=== PATIENT | male | born 1960 | race Caucasian/White ===

== ENCOUNTER 2018-11-05 17:55 | Emergency (ER) | payer SELFPAY ==
[~2018-11-05] VITALS: Ht 175.3 cm; Wt 117.9 kg
[~2018-11-05 17:55] MED LIST: AMLO5TAB2 PO; EPIN0.3P2 IM; GLYB5TAB3 PO; GLYB5TAB6 PO; LISI40TA PO; LISI5TAB PO; MTF500T PO; NFMET1000 PO
--- OUTSIDE RECORDS SUMMARY | 2018-11-05 18:01 | XMS REPORT ---
Author STUART Lizarraga Organization e[employer]Works Address Unknown Phone Unavailable Care Team Providers Care Academic Counselor Name Role Phone STUART ACEVEDO CP Unavailable Allergies No Known Allergies Problems Problem Type Condition Code Onset Dates Condition Status Problem PPV23 (PNEUMOVAX) DX V03.82 Active Problem Encounter for long-term (current) use of other medications V58.69 Active Problem Personal history of noncompliance with medical treatment, presenting hazards to health V15.81 Active Problem STATE HEP A (ADULT) DX V05.3 Active Problem Type 2 diabetes mellitus with hyperglycemia E11.65 Active Problem Essential hypertension with goal blood pressure less than 130\/80 I10 Active Problem Anxiety F41.9 Active Problem Irritable bowel syndrome with diarrhea K58.0 Active Problem Hypertension, essential I10 Active Problem Chronic tension-type headache, not intractable G44.229 Active Problem 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
--- OUTSIDE RECORDS SUMMARY | 2018-11-05 18:01 | XMS REPORT ---
Author Author [facility] Organization e[employer] Address Unknown Phone Unavailable Care Team Providers Care Doctor Of Nursing Practice Name Role Phone [facility], [facility] CP Unavailable Allergies No Known Allergies Problems Problem Type Condition ICD-9 Code Onset Dates Condition Status Problem Thoracic sprain and strain 847.1 Active Problem Tension type headache, unspecified 339.10 Active Problem Pain in joint, lower leg 719.46 Active Problem Encounter for long-term (current) use of other medications V58.69 Active Problem PPV23 (PNEUMOVAX) DX V03.82 Active Problem Other and unspecified derangement of medial meniscus 717.3 Active Problem STATE HEP A (ADULT) DX V05.3 Active Assessment Affective disorder 296.90 Active Problem Hypertension, essential 401.9 Active Problem Unspecified episodic mood disorder 296.90 Active Problem Primary localized osteoarthrosis, lower leg 715.16 Active Problem Personal history of noncompliance with medical treatment, presenting hazards to health V15.81 Active Problem Unspecified essential hypertension 401.9 Active Problem Diabetes mellitus without mention of complication, type II or unspecified type, uncontrolled 250.02 Active Problem Obesity, unspecified 278.00 Active Problem Pain in thoracic spine 724.1 Active Problem Unspecified pre-operative examination V72.84 Active Problem Need for prophylactic vaccination and inoculation, Influenza V04.81 Active Problem Other chronic pain 338.29 Active Problem Suicidal ideation V62.84 Active Problem Tension headache 307.81 Active Problem Nondependent amphetamine or related acting sympathomimetic abuse, 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
--- OUTSIDE RECORDS SUMMARY | 2018-11-05 18:01 | XMS REPORT ---
Author Author ANJELICA[facility] eClinicalWorks Address Unknown Phone Unavailable Care Team Providers Care Explosive Expert Name Role Phone [facility], [facility] CP Unavailable Allergies No Known Allergies Problems Problem Type Condition Code Onset Dates Condition Status Problem Tension headache 307.81 Active Problem Tension type headache, unspecified 339.10 Active Problem Thoracic sprain and strain 847.1 Active Problem Hypertension, essential I10 Active Problem Hypertension, essential 401.9 Active Problem Diabetes type 2, uncontrolled E11.65 Active Problem Personal history of noncompliance with medical treatment, presenting hazards to health V15.81 Active Problem Primary localized osteoarthrosis, lower leg 715.16 Active Problem Encounter for long-term (current) use of other medications V58.69 Active Problem Other and unspecified derangement of medial meniscus 717.3 Active Assessment Unspecified mood [affective] disorder F39 Active Problem Obesity, unspecified 278.00 Active Problem Suicidal ideation V62.84 Active Problem STATE HEP A (ADULT) DX V05.3 Active Problem Nondependent amphetamine or related acting sympathomimetic abuse, 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
--- OUTSIDE RECORDS SUMMARY | 2018-11-05 18:01 | XMS REPORT ---
Author Author [facility] Organization e[employer] Address Unknown Phone Unavailable Care Team Providers Care Peace Officer Name Role Phone [facility], [facility] CP Unavailable Allergies No Known Allergies [...] System Code Date HEALTH PROMOTION CPT-4 S0280 May 02, 2015 Results No Known Results Summary Purpose eClinicalWorks Submission
--- OUTSIDE RECORDS SUMMARY | 2018-11-05 18:01 | XMS REPORT ---
Author Author [facility] Organization e[employer] Address Unknown Phone Unavailable Care Team Providers Care Genetic Supervisor Name Role Phone [facility] [place] CP Unavailable Allergies No Known Allergies Problems [...] Code Date HEALTH PROMOTION CPT-4 S0280 May 03, 2015 Results No Known Results Summary Purpose eClinicalWorks Submission
--- OUTSIDE RECORDS SUMMARY | 2018-11-05 18:01 | XMS REPORT ---
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
--- OUTSIDE RECORDS SUMMARY | 2018-11-05 18:01 | XMS REPORT ---
Author Author [facility] Organization e[employer] Address Unknown Phone Unavailable Care Team Providers Care Dowel Pin Worker Name Role Phone [facility], [facility] CP Unavailable Allergies No Known Allergies Problems [...] Code Date HEALTH PROMOTION CPT-4 S0280 Apr 22, 2015 Results No Known Results Summary Purpose eClinicalWorks Submission
--- OUTSIDE RECORDS SUMMARY | 2018-11-05 18:01 | XMS REPORT ---
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 Active Problem Obesity, unspecified 278.00 Active Problem Suicidal ideation V62.84 Active Problem STATE HEP A (ADULT) DX V05.3 Active Problem Nondependent amphetamine or related acting sympathomimetic abuse, 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 Active Problem PPV23 (PNEUMOVAX) DX V03.82 Active Problem Need for prophylactic vaccination and inoculation, Influenza V04.81 Active Medications Medication Code System Code Instructions Start Date End Date Status Dosage Amaryl [facility] [address]-98 4 MG Orally Once a day Jun 21, 2014 1 tablet with breakfast or the first main meal of the day benazepril [facility] 0 20 mg Sep 20, 2014 1 time per day Remeron [facility] [address]-07 30 mg Sep 20, 2014 take 1 tablet (30 mg ) by oral route once daily before bedtime ProAir HFA [facility] [address]-77 90 mcg/actuation Sep 20, 2014 inhale 2 puffs by Inhalation route every 4 hours as needed PRN shortness of breath/ cough Januvia [facility] [address]-69 100 MG Orally Once a day Jun 21, 2014 1 tablet Diflucan [facility] [address]-00 not defined Zantac [facility] [address]-28 150 mg Jun 21, 2014 take 1 tablet (150 mg ) by oral route 2 times per day Albuterol Sulfate [facility] [address]-22 90 mcg/actuation February 13, 2014 2 puffs by Inhalation route every 4 hours as needed for 7 days Toprol XL [facility] [address]-54 50 mg Sep 19, 2014 take 1 tablet by Oral route 1 time per day at bedtime cyclobenzaprine [facility] 0 5 mg October 24, 2014 1 tablet 2 times per day PRN Symbicort [facility] [address]-25 160-4.5 mcg/actuation Sep 20, 2014 inhale 2 puffs by Inhalation route in the morning and evening 2 times per day rinse mouth after use MetFORMIN HCl ER (MOD) [facility] [address]-69 1000 MG Orally 2 times a day January 15, 2015 1 tablet Procedures Procedure Coding System Code Date MICROALBUMIN, SEMIQUANT CPT-4 41663 May 29, 2015 Office Visit, Est Pt., Level 4 CPT-4 43421 May 29, 2015 GLYCATED HEMOGLOBIN TEST CPT-4 21879 May 29, 2015 Vital Signs Date/Time: May 29, 2015 Temperature 97.5 F Weight 236.4 lbs Height 68 1/2 in BMI 35.42 Index Blood Pressure Diastolic 92 mmHg Blood Pressure Systolic 162 mmHg Cardiac Monitoring Heart Rate 82 bpm Results Name Result Date Reference Range Unit Abnormality Flag A1C (IN HOUSE) Summary Purpose eClinicalWorks Submission
--- OUTSIDE RECORDS SUMMARY | 2018-11-05 18:01 | XMS REPORT ---
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
--- OUTSIDE RECORDS SUMMARY | 2018-11-05 18:01 | XMS REPORT ---
Author STUART Lizarraga [facility] eClinicalWorks Address Unknown Phone Unavailable Care Team Providers Care Doll Wig Maker Name Role Phone STUART ACEVEDO CP Unavailable Allergies, Adverse Reactions, Alerts Substance Reaction Event Type Aspirin Info Not Available Drug Allergy Problems Problem Type Condition Code Onset Dates Condition Status Problem STATE HEP A (ADULT) DX V05.3 Active Problem Personal history of noncompliance with medical treatment, presenting hazards to health V15.81 Active Problem PPV23 (PNEUMOVAX) DX V03.82 Active Problem Essential hypertension with goal blood pressure less than 130\/80 I10 Active Problem Chronic tension-type headache, not intractable G44.229 Active Problem Type 2 diabetes mellitus with hyperglycemia E11.65 Active Problem Hypertension, essential I10 Active Problem Encounter for long-term (current) use of other medications V58.69 Active Problem 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 Active Problem Irritable bowel syndrome with diarrhea K58.0 Active Assessment Chronic tension-type headache, not intractable G44.229 Active Assessment Essential hypertension with goal blood pressure less than 130\/80 I10 Active Assessment Type 2 diabetes mellitus with hyperglycemia E11.65 Active Medications Medication Code System Code Instructions Start Date End Date Status Dosage Amaryl [facility] 39758052720 4MG Orally Once a day 1 tablet with breakfast or the first main meal of the day MetFORMIN HCl ER [facility] [address]-25 500 MG Orally 2 times a day Sep 27, 2015 2 tablets Cyclobenzaprine HCl [facility] [address]-66 5 MG Orally Once a day October 29, 2015 1 tablet Benazepril HCl [facility] 98999661168 20MG Orally Once a day 1 tablet Diclofenac Potassium [facility] 20208938163 50MG Orally Twice a day prn 1 tablet as needed for pain Januvia [facility] 72226557847 100MG Orally Once a day 1 tablet Zantac [facility] [address]-73 150 mg Jun 21, 2014 take 1 tablet (150 mg ) by oral route 2 times per day Ranitidine HCl [facility] 03903339761 150MG TAKE ONE TABLET BY MOUTH TWICE DAILY Metoprolol Succinate ER [facility] 58478055308 50MG Orally Once a day 1 tablet ProAir HFA [facility] [address]-00 90 mcg/actuation Inhalation every 4 hrs as needed for shortness of breath/cough Sep 20, 2014 inhale 2 puffs by Bentyl [facility] [address]-62 10 MG Orally 3 times a day Aug 14, 2015 1 capsule before meals Probiotic [facility] 15667-[address]951 1 Orally PRN Aug 14, 2015 1 capsul Procedures Procedure Coding System Code Date Office Visit, Est Pt., Level 4 CPT-4 38783 December 17, 2015 GLYCATED HEMOGLOBIN TEST CPT-4 33001 December 17, 2015 Vital Signs Date/Time: December 17, 2015 Temperature 98.4 F Weight 258.5 lbs Height 68 1/2 in BMI 38.73 Index Blood Pressure Diastolic 90 mmHg Blood Pressure Systolic 156 mmHg Cardiac Monitoring Heart Rate 69 bpm Results Name Result Date Reference Range Unit Abnormality Flag A1C (IN HOUSE) ----A1C IN HOUSE 9.7 [id number] 4.3 - 5.6 % ----Previous A1c 7.3 [id number] ----Lot [id number] ----Exp date [id number] Summary Purpose eClinicalWorks Submission
--- OUTSIDE RECORDS SUMMARY | 2018-11-05 18:01 | XMS REPORT ---
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
--- OUTSIDE RECORDS SUMMARY | 2018-11-05 18:01 | XMS REPORT ---
Author STUART Lizarraga Organization eClinicalWorks Address Unknown Phone Unavailable Care Team Providers Care Conveyor Belt Operator Name Role Phone STUART ACEVEDO CP Unavailable [...] End Date Status Dosage MetFORMIN HCl [facility] [address]-15 500 MG Orally 2 times a day Sep 27, 2015 2 tablets Results No Known Results Summary Purpose eClinicalWorks Submission
--- OUTSIDE RECORDS SUMMARY | 2018-11-05 18:02 | XMS REPORT ---
Author STUART Lizarraga Organization eClinicalWorks Address Unknown Phone Unavailable Care Team Providers Care Lock Setter Name Role Phone STUART ACEVEDO CP Unavailable Allergies No Known Allergies Problems Problem Type Condition Code Onset Dates Condition Status Problem STATE HEP A (ADULT) DX V05.3 Active Assessment Hypertension, essential I10 Active Problem Irritable bowel syndrome with diarrhea [...] Medications Procedures Procedure Coding System Code Date ASSAY OF FREE THYROXINE CPT-4 02778 Sep 23, 2015 COMPLETE CBC W/AUTO DIFF WBC CPT-4 92451 Sep 23, 2015 ASSAY THYROID STIM HORMONE CPT-4 10915 Sep 23, 2015 COMPREHEN METABOLIC PANEL CPT-4 09641 Sep 23, 2015 LIPID PANEL CPT-4 27220 Sep 23, 2015 VENIPUNCT, ROUTINE* CPT-4 32312 Sep 23, 2015 Results Name Result Date Reference Range Unit Abnormality Flag ROUTINE VENIPUNCTURE Summary Purpose eClinicalWorks Submission
--- OUTSIDE RECORDS SUMMARY | 2018-11-05 18:02 | XMS REPORT ---
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 Active Problem STATE HEP A (ADULT) DX V05.3 Active Assessment Hypertension, essential I10 Active Assessment Irritable bowel syndrome with diarrhea K58.0 Active Problem Irritable bowel syndrome with diarrhea [...] Date Status Dosage MetFORMIN HCl ER (MOD) [facility] 05848512742 1000MG Orally 2 times a day 1 tablet Januvia [facility] 40637978578 100MG Orally Once a day 1 tablet Metoprolol Succinate ER [facility] 25689126174 50MG TAKE ONE TABLET BY MOUTH ONCE DAILY AT BEDTIME Amaryl [facility] 62450169179 4MG Orally Once a day 1 tablet with breakfast or the first main meal of the day Ranitidine HCl [facility] 80284287520 150MG TAKE ONE TABLET BY MOUTH TWICE DAILY Zantac [facility] [address]-90 150 mg Jun 21, 2014 take 1 tablet (150 mg ) by oral route 2 times per day Bentyl [facility] [address]-59 10 MG Orally 3 times a day Aug 14, 2015 1 capsule before meals Diclofenac Potassium [facility] 59216549441 50MG Orally Twice a day prn 1 tablet Probiotic [facility] 29154-88478 1 Orally PRN Aug 14, 2015 1 capsul Benazepril HCl [facility] [address]-12 20 MG Orally Once a day May 29, 2015 1 tablet Symbicort [facility] [address]-43 160-4.5 mcg/actuation Sep 20, 2014 inhale 2 puffs by Inhalation route in the morning and evening 2 times per day rinse mouth after use ProAir HFA [facility] [address]-91 90 mcg/actuation Sep 20, 2014 inhale 2 puffs by Inhalation route every 4 hours as needed PRN shortness of breath/ cough Procedures Procedure Coding System Code Date Office Visit, Est Pt., Level 3 CPT-4 68477 Aug 14, 2015 Vital Signs Date/Time: Aug 14, 2015 Temperature 98.1 F Weight 245.8 lbs Height 68 1/2 in BMI 36.83 Index Blood Pressure Diastolic 88 mmHg Blood Pressure Systolic 138 mmHg Cardiac Monitoring Heart Rate 68 bpm Results No Known Results Summary Purpose eClinicalWorks Submission
--- OUTSIDE RECORDS SUMMARY | 2018-11-05 18:02 | XMS REPORT ---
Author Author ANJELICA[facility] Organization eClinicalWorks Address Unknown Phone Unavailable Care Team Providers Care Lead Blender Name Role Phone [facility], [facility] CP Unavailable Allergies No Known Allergies [...] System Code Date HEALTH PROMOTION CPT-4 S0280 Sep 16, 2015 Results No Known Results Summary Purpose eClinicalWorks Submission
--- NOTE | 2018-11-05 19:40 | ED General ---
General Chief Complaint: Glucose Problems Stated Complaint: BLOOD SUGAR HIGH Source of Information: Patient Exam Limitations: No Limitations History of Present Illness Date Seen by Provider: Nov 05, 2018 Time Seen by Provider: 19:20 Initial Comments 58-year-old male who presents to the emergency room with complaints of elevated blood sugar. He reports that he has type 2 diabetes and is on insulin but has not been on insulin since he was released from care home 2 months ago. Prior to him being sent to care home he did see [facility] for primary care. He reports that he was at the walk-in clinic for a sinus infection last week but did not report that he needed his insulin. He is just finishing up his antibiotic for his sinus infection. Allergies and Home Medications Allergies Coded Allergies: Hydrocodone (Unverified Allergy, Unknown, hives, 04/08/11) Aspirin (Unverified Adverse Reaction, Unknown, angioedema, 04/08/11) lisinopril (Unverified Adverse Reaction, Unknown, angioedema, 04/08/11) Home Medications Amlodipine Besylate 5 Mg Tablet, 5 MG PO DAILY, (Reported) Epinephrine 0.3 Mg/0.3/Syringe Pen.injctr, 0.3 MG IM PRN, (Reported) prn anaphylaxis Glyburide 5 Mg Tablet, 4 MG PO BIDAC, (Reported) Metformin Hcl 500 Mg Tablet, 2 EACH PO BID, (Reported) Patient Home Medication List Home Medication List Reviewed: Yes Review of Systems Review of Systems Constitutional: see HPI; No chills, No fever Hematologic/Lymphatic: See HPI, Other (high blood sugar) All Other Systems Reviewed Negative Unless Noted: Yes Past Ydwrzas-Slnolc-Azwbzd Hx Past Med/Social Hx: Reviewed Nursing Past Med/Soc Hx Patient Social History Alcohol Use: Denies Use Recreational Drug Use: No Smoking Status: Never a Smoker Recent Foreign Travel: No Contact w/Someone Who Travel: No Recent Hopitalizations: Yes ([facility] FOR PSYCH) Physical Abuse: No Sexual Abuse: No Mistreated: No Fear: No Past Medical History Surgeries: Yes (BONE GRAFT TO RT WRIST FROM HIP) Respiratory: No Cardiac: No Neurological: No Reproductive Disorders: No Genitourinary: No Gastrointestinal: No Musculoskeletal: No Endocrine: Yes Diabetes, Insulin dep Are Your Blood Sugars Over 250: Yes HEENT: No Cancer: No Psychosocial: No Integumentary: No Blood Disorders: No Family Medical History Reviewed Nursing Family Hx Physical Exam Vital Signs Vital Signs - First Documented 11/05/18 19:18 Temp 98.5 Pulse 68 Resp 20 B/P (MAP) 169/94 (119) Pulse Ox 97 O2 Delivery Room Air Capillary Refill : Height, Weight, BMI Height: '" Weight: lbs. oz. kg; BMI Method: General Appearance: No Apparent Distress, WD/WN HEENT: PERRL/EOMI, TMs Normal, Normal ENT Inspection, Pharynx Normal Respiratory: Chest Non Tender, Lungs Clear, Normal Breath Sounds, No Accessory Muscle Use, No Respiratory Distress Cardiovascular: Regular Rate, Rhythm, No Edema, No Gallop, No JVD, No Murmur, Normal Peripheral Pulses Gastrointestinal: Normal Bowel Sounds, No Organomegaly, No Pulsatile Mass, Non Tender, Soft Neurologic/Psychiatric: Alert, Oriented x3, Normal Mood/Affect Skin: Normal Color, Warm/Dry Progress/Results/Core Measures Suspected Sepsis SIRS Temperature: Pulse: Respiratory Rate: Laboratory Tests 11/05/18 19:52: White Blood Count 9.5 Blood Pressure / Mean: Laboratory Tests 11/05/18 19:52: Creatinine 1.33H, Platelet Count 244, Total Bilirubin 0.3 Results/Orders Lab Results My Orders Medications Given in ED Vital Signs/I&O Capillary Refill : Progress Note : Time: 21:29 Progress Note I have seen and evaluated the patient. I have reviewed his laboratory findings. He is not spilling ketones in his urine at this time. He agrees with plan of care, plans for discharge, strict follow-up and return precautions were given. Departure Impression Primary Impression: Diabetes mellitus Qualified Codes: E11.9 - Type 2 diabetes mellitus without complications Disposition: 01 HOME, SELF-CARE Condition: Stable/Unchanged Departure-Patient Inst. Decision time for Depature: 21:29 Referrals: TRAM TAFOYA DO Patient Instructions: Diabetes Type 2 (DC) Add. Discharge Instructions: Call first thing tomorrow morning to get an appointment scheduled at [facility]. You should be able to get your insulin refilled at the walk-in clinic tomorrow from 12-5. Keep a close eye on your blood sugars while at home and eat a well balanced diet that is diabetic cautious. Return back to the emergency room for worsening symptoms or concerns as needed. All discharge instructions reviewed with patient and/or family. Voiced understanding. RHONDA TAY Nov 05, 2018 19:40
[2018-11-05] MEDS ORDERED: NS IV 1000 ML 1,000 ML IV SCH ×2 (19:45→20:45)
[2018-11-05 19:59] LABS: BASOPHILS # (AUTO) 0.1 10^3/uL (0.0-0.1); BASOPHILS % (AUTO) 1 % (0-10); EOSINOPHILS # (AUTO) 0.5 10^3/uL (0.0-0.3); EOSINOPHILS % (AUTO) 5 % (0-10); HEMATOCRIT 39 % (40-54); HEMOGLOBIN 13.4 G/DL (13.3-17.7); LYMPHOCYTES # (AUTO) 1.9 X 10^3 (1.0-4.0); LYMPHOCYTES % (AUTO) 20 % (12-44); MEAN CORPUSCULAR HEMOGLOBIN 28 PG (25-34); MEAN CORPUSCULAR HGB CONC 34 G/DL (32-36); MEAN CORPUSCULAR VOLUME 82 FL (80-99); MEAN PLATELET VOLUME 10.1 FL (7.4-10.4); MONOCYTES # (AUTO) 0.6 X 10^3 (0.0-1.0); MONOCYTES % (AUTO) 6 % (0-12); NEUTROPHILS # (AUTO) 6.4 X 10^3 (1.8-7.8); NEUTROPHILS % (AUTO) 68 % (42-75); PLATELET COUNT 244 10^3/uL (130-400); RED CELL DISTRIBUTION WIDTH 13.8 % (10.0-14.5); WHITE BLOOD COUNT 9.5 10^3/uL (4.3-11.0)
[2018-11-05 20:01] LABS: BILIRUBIN,URINE NEGATIVE (NEGATIVE); CLARITY,URINE CLEAR; COLOR,URINE YELLOW; GLUCOSE, URINE (UA) 4+ (NEGATIVE); KETONES,URINE NEGATIVE (NEGATIVE); LEUKOCYTE ESTERASE ,URINE NEGATIVE (NEGATIVE); NITRITE,URINE NEGATIVE (NEGATIVE); PH,URINE 5 (5-9); PROTEIN,URINE 1+ (NEGATIVE); UROBILINOGEN,URINE NORMAL (NORMAL)
[2018-11-05 20:12] LABS: BACTERIA,URINE NEGATIVE /HPF
[2018-11-05 20:21] LABS: ALBUMIN 3.9 GM/DL (3.2-4.5); BILIRUBIN,TOTAL 0.3 MG/DL (0.1-1.0); CALCIUM 9.5 MG/DL (8.5-10.1); CREATININE SERUM 1.33 MG/DL (0.60-1.30); TOTAL PROTEIN 7.1 GM/DL (6.4-8.2)
[2018-11-05] MEDS ORDERED: inSUlin (REGULAR) HUMAN 1 UNIT/0.01 ML (CHARGE PER UNIT) SC ONE (20:30)
--- NOTE | 2018-11-05 21:19 | NUR ---
FSBS 272MG/DL. RHONDA AWARE
[2018-11-05 21:47] VITALS: BP 140/76
== END 2018-11-05 21:47 | disposition home or self-care (01) ==
LOC: EDUNIT# 17:55 → ER 17:56
DX: E11.65 Type 2 diabetes mellitus with hyperglycemia (principal); Z88.5 Allergy status to narcotic agent; Z88.6 Allergy status to analgesic agent; Z88.8 Allergy status to other drugs, medicaments and biological substances; Z79.4 Long term (current) use of insulin; Z94.6 Bone transplant status
CPT/HCPCS: 36415; 80053; 81000; 82150; 82962; 83690; 83735; 84075; 85025

== ENCOUNTER 2018-11-21 20:43 | Emergency (ER) | payer SELFPAY ==
--- OUTSIDE RECORDS SUMMARY | 2018-11-21 20:58 | XMS REPORT | Continuity of Care Document ---
Author Author [facility] Address Unknown Phone Unavailable Allergies Active Description Code Type Severity Reaction Onset Reported/Identified Relationship to Patient Clinical Status Yes hydrocodone Drug Allergy N/A N/A 06/17/2011 Yes lisinopril Drug Allergy N/A N/A 06/17/2011 Yes hydrocodone Drug Allergy 06/17/2011 Yes lisinopril Drug Allergy 06/17/2011 Yes aspirin Drug Allergy N/A N/A 05/23/2014 Medications There is no data. Problems Date Dx Coded Attending Type Code Diagnosis Diagnosed By 04/20/2008 278.02 Overweight 04/20/2008 401.1 ESSENTIAL HYPERTENSION BENIGN 04/20/2008 682.9 Cellulitis And Abscess Of Unspecified Sites 04/20/2008 278.02 Overweight 04/20/2008 401.1 ESSENTIAL HYPERTENSION BENIGN 04/20/2008 682.9 Cellulitis And Abscess Of Unspecified Sites 04/20/2008 278.02 Overweight 04/20/2008 401.1 ESSENTIAL HYPERTENSION BENIGN 04/20/2008 682.9 Cellulitis And Abscess Of Unspecified Sites 04/20/2008 278.02 Overweight 04/20/2008 401.1 ESSENTIAL HYPERTENSION BENIGN 04/20/2008 682.9 Cellulitis And Abscess Of Unspecified Sites 04/20/2008 RYNE ACEVEDO APRNSON L 278.02 Overweight 04/20/2008 RYNE ACEVEDO APRNSON L 401.1 ESSENTIAL HYPERTENSION BENIGN 04/20/2008 CURTIS ARMSTRONG STUART L 682.9 Cellulitis And Abscess Of Unspecified Sites 04/20/2008 RYNE ACEVEDO APRNSON L 278.02 Overweight 04/20/2008 RYNE ACEVEDO APRNSON L 401.1 ESSENTIAL HYPERTENSION BENIGN 04/20/2008 CURTIS ARMSTRONG STUART L 682.9 Cellulitis And Abscess Of Unspecified Sites 04/20/2008 RYNE ACEVEDO APRNSON L 278.02 Overweight 04/20/2008 CURTIS ARMSTRONG STUART L 401.1 ESSENTIAL HYPERTENSION BENIGN 04/20/2008 CURTIS ARMSTRONG STUART L 682.9 Cellulitis And Abscess Of Unspecified Sites 04/20/2008 TAFOYA DO, TRAM K 278.02 Overweight 04/20/2008 TAFOYA DO, TRAM K 401.1 ESSENTIAL HYPERTENSION BENIGN 04/20/2008 TAFOYA DO, TRAM K 682.9 Cellulitis And Abscess Of Unspecified Sites 04/20/2008 TAFOYA DO, TRAM K 278.02 Overweight 04/20/2008 TAFOYA DO, TRAM K 401.1 ESSENTIAL HYPERTENSION BENIGN 04/20/2008 TAFOYA DO, TRAM K 682.9 Cellulitis And Abscess Of Unspecified Sites 04/20/2008 TAFOYA DO, TRAM K 278.02 Overweight 04/20/2008 TAFOYA DO, TRAM K 401.1 ESSENTIAL HYPERTENSION BENIGN 04/20/2008 TAFOYA DO, TRAM K 682.9 Cellulitis And Abscess Of Unspecified Sites 04/20/2008 EATKATHRYN ARMSTRONG STUART L 278.02 Overweight 04/20/2008 RYNE ACEVEDO APRNSON L 401.1 ESSENTIAL HYPERTENSION BENIGN 04/20/2008 CURTIS ARMSTRONG STUART L 682.9 Cellulitis And Abscess Of Unspecified Sites 04/20/2008 TONY VELASQUEZ, RASHID E 278.02 Overweight 04/20/2008 TONY VELASQUEZ, RASHID E 401.1 ESSENTIAL HYPERTENSION BENIGN 04/20/2008 TONY VELASQUEZ, RASHID E 682.9 Cellulitis And Abscess Of Unspecified Sites 04/20/2008 TONY VELASQUEZ, RASHID E 278.02 Overweight 04/20/2008 TONY RN, RASHID E 401.1 ESSENTIAL HYPERTENSION BENIGN 04/20/2008 TONY RN, RASHID E 682.9 Cellulitis And Abscess Of Unspecified Sites 04/20/2008 TONY RN, RASHID E 278.02 Overweight 04/20/2008 TONY RN, RASHID E 401.1 ESSENTIAL HYPERTENSION BENIGN 04/20/2008 TONY VELASQUEZ, RASHID E 682.9 Cellulitis And Abscess Of Unspecified Sites 04/20/2008 EATKATHRYN AGILE TESTER, STUART L 278.02 Overweight 04/20/2008 EATON AGILE TESTER, STUART L 401.1 ESSENTIAL HYPERTENSION BENIGN 04/20/2008 EATON AGILE TESTER, STUART L 682.9 Cellulitis And Abscess Of Unspecified Sites 04/20/2008 TAFOYA DO TRAM K 278.02 Overweight 04/20/2008 TAFOYA DO, TRAM K 401.1 ESSENTIAL HYPERTENSION BENIGN 04/20/2008 LOTTIE PATEL TRAM K 682.9 Cellulitis And Abscess Of Unspecified Sites 04/20/2008 LOTTIE PATEL TRAM K 278.02 Overweight 04/20/2008 TAFOYA DO TRAM K 401.1 ESSENTIAL HYPERTENSION BENIGN 04/20/2008 TAFOYA DO TRAM K 682.9 Cellulitis And Abscess Of Unspecified Sites 04/20/2008 TONY VELASQUEZ, RASHID E 278.02 Overweight 04/20/2008 TONY VELASQUEZ, RASHID E 401.1 ESSENTIAL HYPERTENSION BENIGN 04/20/2008 TONY VELASQUEZ, RASHID E 682.9 Cellulitis And Abscess Of Unspecified Sites 04/20/2008 LOTTIE PATEL TRAM K 278.02 Overweight 04/20/2008 LOTTIE PATEL TRAM K 401.1 ESSENTIAL HYPERTENSION BENIGN 04/20/2008 JASSI TAFOYA DOA K 682.9 Cellulitis And Abscess Of Unspecified Sites 04/20/2008 TONY VELASQUEZ, RASHID E 278.02 Overweight 04/20/2008 TONY VELASQUEZ, RASHID E 401.1 ESSENTIAL HYPERTENSION BENIGN 04/20/2008 TONY VELASQUEZ, RASHID E 682.9 Cellulitis And Abscess Of Unspecified Sites 04/20/2008 JASSI TAFOYA DOA K 278.02 Overweight 04/20/2008 LOTTIE PATEL TRAM K 401.1 ESSENTIAL HYPERTENSION BENIGN 04/20/2008 JASSI TAFOYA DOA K 682.9 Cellulitis And Abscess Of Unspecified Sites 04/20/2008 TONY VELASQUEZ, RASHID E 278.02 Overweight 04/20/2008 TONY VELASQUEZ, RASHID E 401.1 ESSENTIAL HYPERTENSION BENIGN 04/20/2008 TONY VELASQUEZ, RASHID E 682.9 Cellulitis And Abscess Of Unspecified Sites 05/18/2008 697.0 Lichen Planus 05/18/2008 697.0 Lichen Planus 05/18/2008 697.0 Lichen Planus 05/18/2008 697.0 Lichen Planus 05/18/2008 STUART ACEVEDO APRN 697.0 Lichen Planus 05/18/2008 STUART ACEVEDO APRN 697.0 Lichen Planus 05/18/2008 STUART ACEVEDO APRN L 697.0 Lichen Planus 05/18/2008 JASSI TAFOYA DOA K 697.0 Lichen Planus 05/18/2008 TAFOYA DO, TRAM K 697.0 Lichen Planus 05/18/2008 TAFOYA DO, TRAM K 697.0 Lichen Planus 05/18/2008 STUART ACEVEDO APRN L 697.0 Lichen Planus 05/18/2008 TONY VELASQUEZ, RASHID E 697.0 Lichen Planus 05/18/2008 TONY VELASQUEZ, RASHID E 697.0 Lichen Planus 05/18/2008 TONY VELASQUEZ, RASHID E 697.0 Lichen Planus 05/18/2008 STUART ACEVEDO APRN L 697.0 Lichen Planus 05/18/2008 TAFOYA DO, TRAM K 697.0 Lichen Planus 05/18/2008 TAFOYA DO, TRAM K 697.0 Lichen Planus 05/18/2008 TONY VELASQUEZ, RASHID E 697.0 Lichen Planus 05/18/2008 TAFOYA DO, TRAM K 697.0 Lichen Planus 05/18/2008 TONY VELASQUEZ, RASHID E 697.0 Lichen Planus 05/18/2008 TAFOYA DO, TRAM K 697.0 Lichen Planus 05/18/2008 TONY VELASQUEZ, RASHID E 697.0 Lichen Planus 06/17/2011 250.00 DIABETES MELLITUS POORLY CONTROLLED 06/17/2011 278.01 OBESITY MORBID 06/17/2011 496 CHRONIC OBSTRUCTIVE PULMONARY DISEASE 06/17/2011 724.2 lower back pain 06/17/2011 250.00 DIABETES MELLITUS POORLY CONTROLLED 06/17/2011 278.01 OBESITY MORBID 06/17/2011 496 CHRONIC OBSTRUCTIVE PULMONARY DISEASE 06/17/2011 724.2 lower back pain 06/17/2011 250.00 DIABETES MELLITUS POORLY CONTROLLED 06/17/2011 278.01 OBESITY MORBID 06/17/2011 496 CHRONIC OBSTRUCTIVE PULMONARY DISEASE 06/17/2011 724.2 lower back pain 06/17/2011 250.00 DIABETES MELLITUS POORLY CONTROLLED 06/17/2011 278.01 OBESITY MORBID 06/17/2011 496 CHRONIC OBSTRUCTIVE PULMONARY DISEASE 06/17/2011 724.2 lower back pain 06/17/2011 STUART ACEVEDO APRN 250.00 DIABETES MELLITUS POORLY CONTROLLED 06/17/2011 STUART ACEVEDO APRN 278.01 OBESITY MORBID 06/17/2011 STUART ACEVEDO APRN 496 CHRONIC OBSTRUCTIVE PULMONARY DISEASE 06/17/2011 STUART ACEVEDO APRN 724.2 lower back pain 06/17/2011 EATON AGILE TESTER, STUART L 250.00 DIABETES MELLITUS POORLY CONTROLLED 06/17/2011 EATON AGILE TESTER, STUART L 278.01 OBESITY MORBID 06/17/2011 EATON AGILE TESTER, STUART L 496 CHRONIC OBSTRUCTIVE PULMONARY DISEASE 06/17/2011 EATON AGILE TESTER, STUART L 724.2 lower back pain 06/17/2011 EATON AGILE TESTER, STUART L 250.00 DIABETES MELLITUS POORLY CONTROLLED 06/17/2011 EATON AGILE TESTER, STUART L 278.01 OBESITY MORBID 06/17/2011 EATON AGILE TESTER, STUART L 496 CHRONIC OBSTRUCTIVE PULMONARY DISEASE 06/17/2011 EATON AGILE TESTER, STUART L 724.2 lower back pain 06/17/2011 TAFOYA DO, TRAM K 250.00 DIABETES MELLITUS POORLY CONTROLLED 06/17/2011 TAFOYA DO, TRAM K 278.01 OBESITY MORBID 06/17/2011 TAFOYA DO, TRAM K 496 CHRONIC OBSTRUCTIVE PULMONARY DISEASE 06/17/2011 TAFOYA DO, TRAM K 724.2 lower back pain 06/17/2011 TAFOYA DO, TRAM K 250.00 DIABETES MELLITUS POORLY CONTROLLED 06/17/2011 TAFOYA DO, TRAM K 278.01 OBESITY MORBID 06/17/2011 TAFOYA DO, TRAM K 496 CHRONIC OBSTRUCTIVE PULMONARY DISEASE 06/17/2011 TAFOYA DO, TRAM K 724.2 lower back pain 06/17/2011 TAFOYA DO, TRAM K 250.00 DIABETES MELLITUS POORLY CONTROLLED 06/17/2011 TAFOYA DO, TRAM K 278.01 OBESITY MORBID 06/17/2011 TAFOYA DO, TRAM K 496 CHRONIC OBSTRUCTIVE PULMONARY DISEASE 06/17/2011 TAFOYA DO, TRAM K 724.2 lower back pain 06/17/2011 EATON AGILE TESTER, STUART L 250.00 DIABETES MELLITUS POORLY CONTROLLED 06/17/2011 EATON AGILE TESTER, STUART L 278.01 OBESITY MORBID 06/17/2011 EATON AGILE TESTER, STUART L 496 CHRONIC OBSTRUCTIVE PULMONARY DISEASE 06/17/2011 EATON AGILE TESTER, STUART L 724.2 lower back pain 06/17/2011 RASHID JIMENEZ RN E 250.00 DIABETES MELLITUS POORLY CONTROLLED 06/17/2011 RASHID JIMENEZ RN E 278.01 OBESITY MORBID 06/17/2011 TONY VELASQUEZ, RASHID E 496 CHRONIC OBSTRUCTIVE PULMONARY DISEASE 06/17/2011 RASHID JIMENEZ RN E 724.2 lower back pain 06/17/2011 TONY VELASQUEZ, RASHID E 250.00 DIABETES MELLITUS POORLY CONTROLLED 06/17/2011 TONY VELASQUEZ, RASHID E 278.01 OBESITY MORBID 06/17/2011 TONY VELASQUEZ, RASHID E 496 CHRONIC OBSTRUCTIVE PULMONARY DISEASE 06/17/2011 TONY VELASQUEZ, RASHID E 724.2 lower back pain 06/17/2011 TONY VELASQUEZ, RASHID E 250.00 DIABETES MELLITUS POORLY CONTROLLED 06/17/2011 TONY VELASQUEZ, RASHID E 278.01 OBESITY MORBID 06/17/2011 TONY VELASQUEZ, RASHID E 496 CHRONIC OBSTRUCTIVE PULMONARY DISEASE 06/17/2011 TONY VELASQUEZ, RASHID E 724.2 lower back pain 06/17/2011 EATON AGILE TESTER STUART L 250.00 DIABETES MELLITUS POORLY CONTROLLED 06/17/2011 EATON AGILE TESTER STUART L 278.01 OBESITY MORBID 06/17/2011 EATON AGILE TESTER, STUART L 496 CHRONIC OBSTRUCTIVE PULMONARY DISEASE 06/17/2011 EATON AGILE TESTER STUART L 724.2 lower back pain 06/17/2011 TAFOYA DO, TRAM K 250.00 DIABETES MELLITUS POORLY CONTROLLED 06/17/2011 TAFOYA DO, TRAM K 278.01 OBESITY MORBID 06/17/2011 TAFOYA DO, TRAM K 496 CHRONIC OBSTRUCTIVE PULMONARY DISEASE 06/17/2011 TAFOYA DO, TRAM K 724.2 lower back pain 06/17/2011 TAFOYA DO, TRAM K 250.00 DIABETES MELLITUS POORLY CONTROLLED 06/17/2011 TAFOYA DO, TRAM K 278.01 OBESITY MORBID 06/17/2011 TAFOYA DO, TRAM K 496 CHRONIC OBSTRUCTIVE PULMONARY DISEASE 06/17/2011 TAFOYA DO, TRAM K 724.2 lower back pain 06/17/2011 TONY VELASQUEZ, RASHID E 250.00 DIABETES MELLITUS POORLY CONTROLLED 06/17/2011 TONY VELASQUEZ, RASHID E 278.01 OBESITY MORBID 06/17/2011 TONY VELASQUEZ, RASHID E 496 CHRONIC OBSTRUCTIVE PULMONARY DISEASE 06/17/2011 RASHID JIMENEZ RN E 724.2 lower back pain 06/17/2011 TAFOYA DO, TRAM K 250.00 DIABETES MELLITUS POORLY CONTROLLED 06/17/2011 TAFOYA DO, TRAM K 278.01 OBESITY MORBID 06/17/2011 TAFOYA DO, TRAM K 496 CHRONIC OBSTRUCTIVE PULMONARY DISEASE 06/17/2011 TAFOYA DO, TRAM K 724.2 lower back pain 06/17/2011 TONY VELASQUEZ, RASHID E 250.00 DIABETES MELLITUS POORLY CONTROLLED 06/17/2011 TONY VELASQUEZ, RASHID E 278.01 OBESITY MORBID 06/17/2011 TONY VELASQUEZ, RASHID E 496 CHRONIC OBSTRUCTIVE PULMONARY DISEASE 06/17/2011 TONY VELASQUEZ, RASHID E 724.2 lower back pain 06/17/2011 TAFOYA DO, TRAM K 250.00 DIABETES MELLITUS POORLY CONTROLLED 06/17/2011 TAFOYA DO, TRAM K 278.01 OBESITY MORBID 06/17/2011 TAFOYA DO, TRMA K 496 CHRONIC OBSTRUCTIVE PULMONARY DISEASE 06/17/2011 TAFOYA DO, TRAM K 724.2 lower back pain 06/17/2011 TONY VELASQUEZ, RASHID E 250.00 DIABETES MELLITUS POORLY CONTROLLED 06/17/2011 TONY VELASQUEZ, RASHID E 278.01 OBESITY, MORBID (BMI >40) 06/17/2011 TONY VELASQUEZ, RASHID E 496 CHRONIC OBSTRUCTIVE PULMONARY DISEASE 06/17/2011 TONY VELASQUEZ, RASHID E 724.2 lower back pain 07/20/2011 525.9 tooth pain 07/20/2011 525.9 tooth pain 07/20/2011 525.9 tooth pain 07/20/2011 525.9 tooth pain 07/20/2011 EATRYNE PERALTA APRNSON L 525.9 tooth pain 07/20/2011 EATRYNE PERALTA APRNSON L 525.9 tooth pain 07/20/2011 EATON AGILE TESTER, STUART L 525.9 tooth pain 07/20/2011 TAFOYA DO, TRAM K 525.9 tooth pain 07/20/2011 TAFOYA DO, TRAM K 525.9 tooth pain 07/20/2011 TAFOYA DO TRAM K 525.9 tooth pain 07/20/2011 EATRYNE PERALTA APRNSON L 525.9 tooth pain 07/20/2011 RASHID JIMENEZ RN E 525.9 tooth pain 07/20/2011 RASHID JIMENEZ RN E 525.9 tooth pain 07/20/2011 RASHID JIMENEZ RN E 525.9 tooth pain 07/20/2011 EATRYNE PERALTA APRNSON L 525.9 tooth pain 07/20/2011 TAFOYA DO, TRAM K 525.9 tooth pain 07/20/2011 TAFOYA DO, TRAM K 525.9 tooth pain 07/20/2011 RASHID JIMENEZ RN E 525.9 tooth pain 07/20/2011 TAFOYA DO TRAM K 525.9 tooth pain 07/20/2011 TONY VELASQUEZ, RASHID Soto 525.9 tooth pain 07/20/2011 TAFOYA DO, TRAM K 525.9 tooth pain 07/20/2011 TONY VELASQUEZ, RASHID E 525.9 tooth pain 12/22/2012 401.9 UNSPECIFIED ESSENTIAL HYPERTENSION 12/22/2012 V15.81 noncompliance with therapy because of denial of condition 12/22/2012 401.9 UNSPECIFIED ESSENTIAL HYPERTENSION 12/22/2012 V15.81 noncompliance with therapy because of denial of condition 12/22/2012 401.9 UNSPECIFIED ESSENTIAL HYPERTENSION 12/22/2012 V15.81 noncompliance with therapy because of denial of condition 12/22/2012 EATON AGILE TESTER, STUART L 401.9 UNSPECIFIED ESSENTIAL HYPERTENSION 12/22/2012 EATON AGILE TESTER STUART L V15.81 noncompliance with therapy because of denial of condition 12/22/2012 EATON AGILE TESTER, STUART L 401.9 UNSPECIFIED ESSENTIAL HYPERTENSION 12/22/2012 EATON AGILE TESTER, STUART L V15.81 noncompliance with therapy because of denial of condition 12/22/2012 EATON AGILE TESTER STUART L 401.9 UNSPECIFIED ESSENTIAL HYPERTENSION 12/22/2012 EATON AGILE TESTER STUART L V15.81 noncompliance with therapy because of denial of condition 12/22/2012 TAFOYA DO, TRAM K 401.9 UNSPECIFIED ESSENTIAL HYPERTENSION 12/22/2012 TAFOYA DO, TRAM K V15.81 noncompliance with therapy because of denial of condition 12/22/2012 TAFOYA DO, TRAM K 401.9 UNSPECIFIED ESSENTIAL HYPERTENSION 12/22/2012 TAFOYA DO, TRAM K V15.81 noncompliance with therapy because of denial of condition 12/22/2012 TAFOYA DO, TRAM K 401.9 UNSPECIFIED ESSENTIAL HYPERTENSION 12/22/2012 TAFOYA DO, TRAM K V15.81 noncompliance with therapy because of denial of condition 12/22/2012 EATON AGILE TESTER STUART L 401.9 UNSPECIFIED ESSENTIAL HYPERTENSION 12/22/2012 EATON AGILE TESTER STUART L V15.81 noncompliance with therapy because of denial of condition 12/22/2012 RASHID JIMENEZ RN 401.9 UNSPECIFIED ESSENTIAL HYPERTENSION 12/22/2012 RASHID JIMENEZ RN V15.81 noncompliance with therapy because of denial of condition 12/22/2012 RASHID JIMENEZ RN 401.9 UNSPECIFIED ESSENTIAL HYPERTENSION 12/22/2012 RASHID JIMENEZ RN V15.81 noncompliance with therapy because of denial of condition 12/22/2012 RASHID JIMENEZ RN 401.9 UNSPECIFIED ESSENTIAL HYPERTENSION 12/22/2012 RASHID JIMENEZ RN V15.81 noncompliance with therapy because of denial of condition 12/22/2012 STUART ACEVEDO APRN L 401.9 UNSPECIFIED ESSENTIAL HYPERTENSION 12/22/2012 STUART ACEVEDO APRN L V15.81 noncompliance with therapy because of denial of condition 12/22/2012 TAFOYA DO, TRAM K 401.9 UNSPECIFIED ESSENTIAL HYPERTENSION 12/22/2012 TAFOYA DO, TRAM K V15.81 noncompliance with therapy because of denial of condition 12/22/2012 TAFOYA DO, TRAM K 401.9 UNSPECIFIED ESSENTIAL HYPERTENSION 12/22/2012 TAFOYA DO, TRAM K V15.81 noncompliance with therapy because of denial of condition 12/22/2012 RASHID JIMENEZ RN 401.9 UNSPECIFIED ESSENTIAL HYPERTENSION 12/22/2012 RASHID JIMENEZ RN V15.81 noncompliance with therapy because of denial of condition 12/22/2012 TAFOYA DO, TRAM K 401.9 UNSPECIFIED ESSENTIAL HYPERTENSION 12/22/2012 TAFOYA DO, TRAM K V15.81 noncompliance with therapy because of denial of condition 12/22/2012 RASHID JMIENEZ RN 401.9 UNSPECIFIED ESSENTIAL HYPERTENSION 12/22/2012 RASHID JIMENEZ RN V15.81 noncompliance with therapy because of denial of condition 12/22/2012 TAFOYA DO, TRAM K 401.9 UNSPECIFIED ESSENTIAL HYPERTENSION 12/22/2012 TAFOYA DO, TRAM K V15.81 noncompliance with therapy because of denial of condition 12/22/2012 RASHID JIMENEZ RN 401.9 HYPERTENSION, UNSPECIFIED ESSENTIAL 12/22/2012 RASHID JIMENEZ RN V15.81 NONCOMPLIANCE WITH THERAPY BECAUSE OF DENIAL OF CONDITION 02/24/2014 STUART ACEVEDO APRN L 719.46 PAIN IN JOINT INVOLVING LOWER LEG 02/24/2014 STUART ACEVEDO APRN L 847.1 SPRAIN THORACIC REGION 02/24/2014 CURTIS DENISEGerald STUART L 719.46 PAIN IN JOINT INVOLVING LOWER LEG 02/24/2014 CURTIS DENISEGerald STUART L 847.1 SPRAIN THORACIC REGION 02/24/2014 TAFOYA DO, TRAM K 719.46 PAIN IN JOINT INVOLVING LOWER LEG 02/24/2014 TAFOYA DO, TRAM K 847.1 SPRAIN THORACIC REGION 02/24/2014 TAFOYA DO, TRAM K 719.46 PAIN IN JOINT INVOLVING LOWER LEG 02/24/2014 TAFOYA DO, TRAM K 847.1 SPRAIN THORACIC REGION 02/24/2014 TAFOYA DO, TRAM K 719.46 PAIN IN JOINT INVOLVING LOWER LEG 02/24/2014 TAFOYA DO, TRAM K 847.1 SPRAIN THORACIC REGION 02/24/2014 CURTIS DENISESTUART Duarte L 719.46 PAIN IN JOINT INVOLVING LOWER LEG 02/24/2014 CURTIS STUART ARMSTRONG L 847.1 SPRAIN THORACIC REGION 02/24/2014 RASHID JIMENEZ RN E 719.46 PAIN IN JOINT INVOLVING LOWER LEG 02/24/2014 TONY VELASQUEZ, RASHID E 847.1 SPRAIN THORACIC REGION 02/24/2014 TNOY VELASQUEZ, RASHID E 719.46 PAIN IN JOINT INVOLVING LOWER LEG 02/24/2014 TONY VELASQUEZ, RASHID E 847.1 SPRAIN THORACIC REGION 02/24/2014 TONY VELASQUEZ, RASHID E 719.46 PAIN IN JOINT INVOLVING LOWER LEG 02/24/2014 TONY VELASQUEZ, RASHID E 847.1 SPRAIN THORACIC REGION 02/24/2014 CURTIS STUART ARMSTRONG L 719.46 PAIN IN JOINT INVOLVING LOWER LEG 02/24/2014 CURTIS DENISESTUART Duarte L 847.1 SPRAIN THORACIC REGION 02/24/2014 TAFOYA DO, TRAM K 719.46 PAIN IN JOINT INVOLVING LOWER LEG 02/24/2014 TAFOYA DO, TRAM K 847.1 SPRAIN THORACIC REGION 02/24/2014 TAFOYA DO, TRAM K 719.46 PAIN IN JOINT INVOLVING LOWER LEG 02/24/2014 TAFOYA DO, TRAM K 847.1 SPRAIN THORACIC REGION 02/24/2014 RASHID JIMENEZ RN E 719.46 PAIN IN JOINT INVOLVING LOWER LEG 02/24/2014 TONY VELASQUEZ, RASHID E 847.1 SPRAIN THORACIC REGION 02/24/2014 TAFOYA DO, TRAM K 719.46 PAIN IN JOINT INVOLVING LOWER LEG 02/24/2014 LOTTIE PATEL TRAM K 847.1 SPRAIN THORACIC REGION 02/24/2014 RASHID JIMENEZ RN 719.46 PAIN IN JOINT INVOLVING LOWER LEG 02/24/2014 RASHID JIMENEZ RN E 847.1 SPRAIN THORACIC REGION 02/24/2014 TAFOYA DO TRAM K 719.46 PAIN IN JOINT INVOLVING LOWER LEG 02/24/2014 LOTTIE PATEL, TRAM K 847.1 SPRAIN THORACIC REGION 02/24/2014 RASHID JIMENEZ RN E 719.46 PAIN IN JOINT INVOLVING LOWER LEG 02/24/2014 RASHID JIMENEZ RN 847.1 SPRAIN THORACIC REGION 03/22/2014 LOTTIE PATEL, TRAM K 724.1 PAIN IN THORACIC SPINE 03/22/2014 LOTTIE DO, TRAM K V03.82 PPV23 (PNEUMOVAX) DX 03/22/2014 LOTTIE DO, TRAM K V05.3 HEP A (ADULT) DX 03/22/2014 LOTTIE PATEL, TRAM K 724.1 PAIN IN THORACIC SPINE 03/22/2014 LOTTIE DO, TRAM K V03.82 PPV23 (PNEUMOVAX) DX 03/22/2014 TAFOYA DO, TRAM K V05.3 HEP A (ADULT) DX 03/22/2014 TAFOYA DO, TRAM K 724.1 PAIN IN THORACIC SPINE 03/22/2014 LOTTIE DO, TRAM K V03.82 PPV23 (PNEUMOVAX) DX 03/22/2014 TAFOYA DO, TRAM K V05.3 HEP A (ADULT) DX 03/22/2014 STUART ACEVEDO APRN L 724.1 PAIN IN THORACIC SPINE 03/22/2014 STUART ACEVEDO APRN L V03.82 PPV23 (PNEUMOVAX) DX 03/22/2014 STUART ACEVEDO APRN L V05.3 HEP A (ADULT) DX 03/22/2014 RASHID JIMENEZ RN 724.1 PAIN IN THORACIC SPINE 03/22/2014 RASHID JIMENEZ RN V03.82 PPV23 (PNEUMOVAX) DX 03/22/2014 RASHID JIMENEZ RN V05.3 HEP A (ADULT) DX 03/22/2014 RASHID JIMENZE RN 724.1 PAIN IN THORACIC SPINE 03/22/2014 RASHID JIMENEZ RN V03.82 PPV23 (PNEUMOVAX) DX 03/22/2014 RASHID JIMENEZ RN V05.3 HEP A (ADULT) DX 03/22/2014 RASHID JIMENEZ RN 724.1 PAIN IN THORACIC SPINE 03/22/2014 RASHID JIMENEZ RN V03.82 PPV23 (PNEUMOVAX) DX 03/22/2014 RASHID JIMENEZ RN V05.3 HEP A (ADULT) DX 03/22/2014 CURTIS STUART ARMSTRONG L 724.1 PAIN IN THORACIC SPINE 03/22/2014 CURTIS AGILE TESTERSTUART L V03.82 PPV23 (PNEUMOVAX) DX 03/22/2014 CURTIS AGILE TESTER, STUART L V05.3 HEP A (ADULT) DX 03/22/2014 TAFOYA DO, RTAM K 724.1 PAIN IN THORACIC SPINE 03/22/2014 TAFOYA DO, TRAM K V03.82 PPV23 (PNEUMOVAX) DX 03/22/2014 TAFOYA DO TRAM K V05.3 HEP A (ADULT) DX 03/22/2014 TAFOYA DO, TRAM K 724.1 PAIN IN THORACIC SPINE 03/22/2014 TAFOYA DO, TRAM K V03.82 PPV23 (PNEUMOVAX) DX 03/22/2014 TAFOYA DO, TRAM K V05.3 HEP A (ADULT) DX 03/22/2014 RASHID JIMENEZ RN 724.1 PAIN IN THORACIC SPINE 03/22/2014 RASHID JIMENEZ RN V03.82 PPV23 (PNEUMOVAX) DX 03/22/2014 RASHID JIMENEZ RN V05.3 HEP A (ADULT) DX 03/22/2014 TAFOYA DO, TRAM K 724.1 PAIN IN THORACIC SPINE 03/22/2014 TAFOYA DO, TRAM K V03.82 PPV23 (PNEUMOVAX) DX 03/22/2014 TAFOYA DO, TRAM K V05.3 HEP A (ADULT) DX 03/22/2014 RASHID JIMENEZ RN 724.1 PAIN IN THORACIC SPINE 03/22/2014 RASHID JIMENEZ RN V03.82 PPV23 (PNEUMOVAX) DX 03/22/2014 RASHID JIMENEZ RN V05.3 HEP A (ADULT) DX 03/22/2014 TAFOYA DO TRAM K 724.1 PAIN IN THORACIC SPINE 03/22/2014 LOTTIE PATEL TRAM K V03.82 PPV23 (PNEUMOVAX) DX 03/22/2014 LOTTIE PATEL TRAM K V05.3 HEP A (ADULT) DX 03/22/2014 RASHID JIMENEZ RN E 724.1 PAIN IN THORACIC SPINE 03/22/2014 RASHID JIMENEZ RN V03.82 PPV23 (PNEUMOVAX) DX 03/22/2014 RASHID JIMENEZ RN V05.3 HEP A (ADULT) DX 04/24/2014 LOTTIE PATEL TRAM K 339.10 HEADACHE, TENSION-TYPE 04/24/2014 LOTTIE PATEL TRAM K 715.16 OSTEOARTHROSIS LOCALIZED PRIMARY INVOLVING LOWER LEG 04/24/2014 STUART ACEVEDO APRN 339.10 HEADACHE, TENSION-TYPE 04/24/2014 STUART ACEVEDO APRN L 715.16 OSTEOARTHROSIS LOCALIZED PRIMARY INVOLVING LOWER LEG 04/24/2014 RASHID JIMENEZ RN E 339.10 HEADACHE, TENSION-TYPE 04/24/2014 RASHID JIMENEZ RN E 715.16 OSTEOARTHROSIS LOCALIZED PRIMARY INVOLVING LOWER LEG 04/24/2014 RASHID JIMENEZ RN E 339.10 HEADACHE, TENSION-TYPE 04/24/2014 RASHID JIMENEZ RN E 715.16 OSTEOARTHROSIS LOCALIZED PRIMARY INVOLVING LOWER LEG 04/24/2014 RASHID JIMENEZ RN E 339.10 HEADACHE, TENSION-TYPE 04/24/2014 RASHID JIMENEZ RN E 715.16 OSTEOARTHROSIS LOCALIZED PRIMARY INVOLVING LOWER LEG 04/24/2014 STUART ACEVEDO APRN L 339.10 HEADACHE, TENSION-TYPE 04/24/2014 STUART ACEVEDO APRN L 715.16 OSTEOARTHROSIS LOCALIZED PRIMARY INVOLVING LOWER LEG 04/24/2014 LOTTIE PATEL TRAM K 339.10 HEADACHE, TENSION-TYPE 04/24/2014 TAFOYA DO TRAM K 715.16 OSTEOARTHROSIS LOCALIZED PRIMARY INVOLVING LOWER LEG 04/24/2014 LOTTIE PATEL TRAM K 339.10 HEADACHE, TENSION-TYPE 04/24/2014 TAFOYA DO TRAM K 715.16 OSTEOARTHROSIS LOCALIZED PRIMARY INVOLVING LOWER LEG 04/24/2014 RASHID JIMENEZ RN E 339.10 HEADACHE, TENSION-TYPE 04/24/2014 RASHID JIMENEZ RN E 715.16 OSTEOARTHROSIS LOCALIZED PRIMARY INVOLVING LOWER LEG 04/24/2014 LOTTIE PATEL TRAM K 339.10 HEADACHE, TENSION-TYPE 04/24/2014 TAFOYA DO, TRAM K 715.16 OSTEOARTHROSIS LOCALIZED PRIMARY INVOLVING LOWER LEG 04/24/2014 TONY VELASQUEZ, RASHID E 339.10 HEADACHE, TENSION-TYPE 04/24/2014 TONY VELASQUEZ, RASHID E 715.16 OSTEOARTHROSIS LOCALIZED PRIMARY INVOLVING LOWER LEG 04/24/2014 LOTTIE PATEL TRAM K 339.10 HEADACHE, TENSION-TYPE 04/24/2014 LOTTIE PATEL TRAM K 715.16 OSTEOARTHROSIS LOCALIZED PRIMARY INVOLVING LOWER LEG 04/24/2014 TONY VELASQUEZ, RASHID E 339.10 HEADACHE, TENSION-TYPE 04/24/2014 RASHID JIMENEZ RN E 715.16 OSTEOARTHROSIS LOCALIZED PRIMARY INVOLVING LOWER LEG 05/23/2014 RASHID JIMENEZ RN E 717.3 OTHER AND UNSPECIFIED DERANGEMENT OF MEDIAL MENISCUS 05/23/2014 RASHID JIMENEZ RN E V58.69 HIGH RISK MEDICATION 05/23/2014 RASHID JIMENEZ RN E 717.3 OTHER AND UNSPECIFIED DERANGEMENT OF MEDIAL MENISCUS 05/23/2014 DEANGELO JIMENEZ RNISTA E V58.69 HIGH RISK MEDICATION 05/23/2014 RASHID JIMENEZ RN E 717.3 OTHER AND UNSPECIFIED DERANGEMENT OF MEDIAL MENISCUS 05/23/2014 DEANGELO JIMENEZ RNISTA E V58.69 HIGH RISK MEDICATION 05/23/2014 STUART ACEVEDO APRN L 717.3 OTHER AND UNSPECIFIED DERANGEMENT OF MEDIAL MENISCUS 05/23/2014 STUART ACEVEDO APRN L V58.69 HIGH RISK MEDICATION 05/23/2014 LOTTIE PATEL TRAM K 717.3 OTHER AND UNSPECIFIED DERANGEMENT OF MEDIAL MENISCUS 05/23/2014 LOTTIE DO, TRAM K V58.69 HIGH RISK MEDICATION 05/23/2014 LOTTIE PATEL, TRAM K 717.3 OTHER AND UNSPECIFIED DERANGEMENT OF MEDIAL MENISCUS 05/23/2014 TAFOYA , TRAM K V58.69 HIGH RISK MEDICATION 05/23/2014 RASHID JIMENEZ RN E 717.3 OTHER AND UNSPECIFIED DERANGEMENT OF MEDIAL MENISCUS 05/23/2014 DEANGELO JIMENEZ RNISTA E V58.69 HIGH RISK MEDICATION 05/23/2014 TAFOYA DO TRAM K 717.3 OTHER AND UNSPECIFIED DERANGEMENT OF MEDIAL MENISCUS 05/23/2014 LOTTIE PATEL TRAM K V58.69 HIGH RISK MEDICATION 05/23/2014 TONY VELASQUEZ, RASHID E 717.3 OTHER AND UNSPECIFIED DERANGEMENT OF MEDIAL MENISCUS 05/23/2014 TONY VELASQUEZ, RASHID Soto V58.69 HIGH RISK MEDICATION 05/23/2014 JASSI TAFOYA DOA K 717.3 OTHER AND UNSPECIFIED DERANGEMENT OF MEDIAL MENISCUS 05/23/2014 JASSI TAFOYA DOA K V58.69 HIGH RISK MEDICATION 05/23/2014 TONY VELASQUEZ, RASHID Soto 717.3 OTHER AND UNSPECIFIED DERANGEMENT OF MEDIAL MENISCUS 05/23/2014 TONY VELASQUEZ, RASHID Soto V58.69 HIGH RISK MEDICATION 05/24/2014 TONY VELASQUEZ, RASHID E 296.90 UNSPECIFIED EPISODIC MOOD DISORDER 05/24/2014 RASHID JIMENEZ RN E 296.90 UNSPECIFIED EPISODIC MOOD DISORDER 05/24/2014 TONY VELASQUEZ, RASHID E 296.90 UNSPECIFIED EPISODIC MOOD DISORDER 05/24/2014 STUART ACEVEDO APRN L 296.90 UNSPECIFIED EPISODIC MOOD DISORDER 05/24/2014 TRAM TAFOYA DO K 296.90 UNSPECIFIED EPISODIC MOOD DISORDER 05/24/2014 JASSI TAFOYA DOA K 296.90 UNSPECIFIED EPISODIC MOOD DISORDER 05/24/2014 TONY VELASQUZE, RASHID E 296.90 UNSPECIFIED EPISODIC MOOD DISORDER 05/24/2014 JASSI TAFOYA DOA K 296.90 UNSPECIFIED EPISODIC MOOD DISORDER 05/24/2014 TONY VELASQUEZ, RASHID E 296.90 UNSPECIFIED EPISODIC MOOD DISORDER 05/24/2014 JASSI TAFOYA DOA K 296.90 UNSPECIFIED EPISODIC MOOD DISORDER 05/24/2014 TONY VELASQUEZ, RASHID E 296.90 UNSPECIFIED EPISODIC MOOD DISORDER 05/28/2014 TONY VELASQUEZ, RASHID E 796.2 ELEVATED BLOOD PRESSURE READING WITHOUT DIAGNOSIS OF HYPERTENSION 05/28/2014 TONY VELASQUEZ, RASHID E 796.2 ELEVATED BLOOD PRESSURE READING WITHOUT DIAGNOSIS OF HYPERTENSION 05/28/2014 STUART ACEVEDO APRN L 796.2 ELEVATED BLOOD PRESSURE READING WITHOUT DIAGNOSIS OF HYPERTENSION 05/28/2014 TRAM TAFOYA DO K 796.2 ELEVATED BLOOD PRESSURE READING WITHOUT DIAGNOSIS OF HYPERTENSION 05/28/2014 JASSI TAFOYA DOA K 796.2 ELEVATED BLOOD PRESSURE READING WITHOUT DIAGNOSIS OF HYPERTENSION 05/28/2014 RASHID JIMENEZ RN E 796.2 ELEVATED BLOOD PRESSURE READING WITHOUT DIAGNOSIS OF HYPERTENSION 05/28/2014 TRAM TAFOYA DO K 796.2 ELEVATED BLOOD PRESSURE READING WITHOUT DIAGNOSIS OF HYPERTENSION 05/28/2014 TONY VELASQUEZ, RASHID E 796.2 ELEVATED BLOOD PRESSURE READING WITHOUT DIAGNOSIS OF HYPERTENSION 05/28/2014 TRAM TAFOYA DO 796.2 ELEVATED BLOOD PRESSURE READING WITHOUT DIAGNOSIS OF HYPERTENSION 05/28/2014 TONY VELASQUEZ, RASHID E 796.2 ELEVATED BLOOD PRESSURE READING WITHOUT DIAGNOSIS OF HYPERTENSION 06/13/2014 TRAM TAFOYA DO V04.81 FLU SHOT 06/13/2014 TRAM TAFOYA DO V04.81 FLU SHOT 06/13/2014 RASHID JIMENEZ RN V04.81 FLU SHOT 06/13/2014 TRAM TAFOYA DO V04.81 FLU SHOT 06/13/2014 RASHID JIMENEZ RN V04.81 FLU SHOT 06/13/2014 TRAM TAFOYA DO V04.81 FLU SHOT 06/13/2014 RASHID JIMENEZ RN E V04.81 FLU SHOT 06/21/2014 TRAM TAFOYA DO V72.84 PRE-OPERATIVE EXAM 06/21/2014 RASHID JIMENEZ RN E V72.84 PRE-OPERATIVE EXAM 06/21/2014 TRAM TAFOYA DO V72.84 PRE-OPERATIVE EXAM 06/21/2014 RASHID JIMENEZ RN E V72.84 PRE-OPERATIVE EXAM 06/21/2014 TRAM TAFOYA DO V72.84 PRE-OPERATIVE EXAM 06/21/2014 RASHID JIMENEZ RN E V72.84 PRE-OPERATIVE EXAM 08/14/2014 TRAM TAFOYA DO 305.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 EPISODIC USE 08/14/2014 TRAM TAFOYA DO 799.22 IRRITABILITY 08/14/2014 TRAM TAFOYA DO 799.24 EMOTIONAL LABILITY 08/14/2014 TRAM TAFOYA DO V62.84 SUICIDAL IDEATION 08/14/2014 RASHID JIMENEZ RN E 305.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 EPISODIC USE 08/14/2014 RASHID JIMENEZ RN 799.22 IRRITABILITY 08/14/2014 RASHID JIMENEZ RN E 799.24 EMOTIONAL LABILITY 08/14/2014 RASHID JIMENEZ RN E V62.84 SUICIDAL IDEATION 08/14/2014 TRAM TAFOYA DO 305.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 EPISODIC USE 08/14/2014 TRAM TAFOYA DO 799.22 IRRITABILITY 08/14/2014 TRAM TAFOYA DO 799.24 EMOTIONAL LABILITY 08/14/2014 TRAM TAFOYA DO V62.84 SUICIDAL IDEATION 08/14/2014 RASHID JIMENEZ RN 305.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 EPISODIC USE 08/14/2014 RASHID JIMENEZ RN 799.22 IRRITABILITY 08/14/2014 RASHID JIMENEZ RN 799.24 EMOTIONAL LABILITY 08/14/2014 RASHID JIMENEZ RN V62.84 SUICIDAL IDEATION 09/20/2014 RASHID JIMENEZ RN 250.02 DIABETES II UNCONTROLLED (UNCOMPLICATED) 09/20/2014 RASHID JIMENEZ RN 278.00 OBESITY 09/20/2014 TRAM TAFOYA DO 250.02 DIABETES II UNCONTROLLED (UNCOMPLICATED) 09/20/2014 TRAM TAFOYA DO 278.00 OBESITY 09/20/2014 RASHID JIMENEZ RN 250.02 DIABETES II UNCONTROLLED (UNCOMPLICATED) 09/20/2014 RASHID JIMENEZ RN 278.00 OBESITY 11/06/2014 TRAM TAFOYA DO 307.81 HEADACHE, TENSION 11/06/2014 TRAM TAFOYA DO 338.29 CHRONIC PAIN 11/06/2014 RASHID JIMENEZ RN 307.81 HEADACHE, TENSION 11/06/2014 RASHID JIMENEZ RN 338.29 CHRONIC PAIN 04/12/2018 Working H90.3 Sensorineural hearing loss, bilateral Hakan Munoz Procedures Code Description [place] [address] OXIMETRY 12/22/2012 67328 A1C (IN-HOUSE) 12/22/2012 78999 XRAY CHEST 2 VIEW 02/13/2014 31776 OXIMETRY 02/13/2014 34873 XRAY THORACIC SPINE 3 VIEWS 02/24/2014 08725 XRAY KNEE RIGHT 1 OR 2 VIEWS 02/24/2014 39129 ROUTINE VENIPUNCTURE 03/01/2014 68798 EKG, TRACING (IN-HOUSE) 03/01/2014 23351 CBC 03/01/2014 64704 CMP 03/01/2014 17819 LIPID PANEL 03/01/2014 92592 MICROALBUMIN 03/01/2014 0396763 GFR CALC (RESULT ONLY) 03/01/2014 70090 TSH 03/01/2014 19563 MRI SPINE (THORACIC) W/O CONTRAST 03/22/2014 39796 A1C (IN-HOUSE) 03/22/2014 77315 URINE DRUG SCREEN (IN-HOUSE ) 04/24/2014 URINEDRUG URINE DRUG SCREEN (CON'F ) 04/24/2014 58598 URINE DRUG SCREEN (IN-HOUSE ) 05/23/2014 URINEDRUG URINE DRUG SCREEN (CON'F ) 05/24/2014 2000F BLOOD PRESSURE CHECK 05/29/2014 2000F BLOOD PRESSURE CHECK 06/13/2014 S0280 COMPREHENSIVE CARE MANAGEMENT 06/13/2014 S0281 CARE COORDINATION 06/13/2014 51305 CMP 06/13/2014 1413929 GFR CALC (RESULT ONLY) 06/13/2014 80233 HEPATITIS PROFILE 06/14/2014 93213 A1C (IN-HOUSE) 06/21/2014 S0280 HEALTH PROMOTION 07/24/2014 S0280 HEALTH PROMOTION 08/17/2014 S0280 HEALTH PROMOTION 09/30/2014 S0280 HEALTH PROMOTION 11/06/2014 S0281 CARE COORDINATION 12/24/2014 95042 Audiometry & Speech Evaluation Hakan Munoz 04/13/2018 85500 Tympanometry Hakan Munoz 04/13/2018 Results Test Result Range TSH - 10/19/18 12:39 TSH 2.39 mIU/L 0.40-4.50 Encounters ACCT No. Visit Date/Time Discharge Status Pt. Type Provider Facility Loc./Unit Complaint [id number] 12/19/2014 14:45:00 12/19/2014 23:59:59 CLS Outpatient RASHID JIMENEZ RN [id number] 11/06/2014 13:10:00 11/06/2014 23:59:59 CLS Outpatient TRAM TAFOYA DO [id number] 09/24/2014 14:30:00 09/24/2014 23:59:59 CLS Outpatient RASHID JIMENEZ RN [id number] 08/14/2014 08:34:00 08/14/2014 23:59:59 CLS Outpatient TRAM TAFOYA DO [id number] 07/06/2014 13:00:00 07/06/2014 23:59:59 CLS Outpatient RASHID JIMENEZ RN [id number] 06/21/2014 08:10:00 06/21/2014 23:59:59 CLS Outpatient TRAM TAFOYA DO [id number] 06/13/2014 08:07:00 06/13/2014 23:59:59 CLS Outpatient TRAM TAFOYA DO [id number] 06/01/2014 08:49:00 06/01/2014 23:59:59 CLS Outpatient RASHID JIMENEZ RN [id number] 05/29/2014 13:36:00 05/29/2014 23:59:59 CLS Outpatient RASHID JIMENEZ RN [id number] 05/24/2014 16:30:00 05/24/2014 23:59:59 CLS Outpatient RASHID JIMENEZ RN [id number] 05/23/2014 15:54:00 05/23/2014 23:59:59 CLS Outpatient STUART ACEVEDO APRN [id number] 04/24/2014 11:03:00 04/24/2014 23:59:59 CLS Outpatient TRAM TAFOYA DO [id number] 04/24/2014 11:03:00 04/24/2014 23:59:59 CLS Outpatient STUART ACEVEDO APRN [id number] 03/22/2014 09:14:00 03/22/2014 23:59:59 CLS Outpatient TRAM TAFOYA DO [id number] 03/22/2014 09:14:00 03/22/2014 23:59:59 CLS Outpatient TRAM TAFOYA DO [id number] 03/01/2014 13:30:00 03/01/2014 23:59:59 CLS Outpatient STUART ACEVEDO APRN [id number] 02/24/2014 09:04:00 02/24/2014 23:59:59 CLS Outpatient STUART ACEVEDO APRN [id number] 02/13/2014 12:21:00 02/13/2014 23:59:59 CLS Outpatient STUART ACEVEDO APRN [id number] 07/20/2011 09:59:00 07/20/2011 23:59:59 CLS Outpatient [id number] 02/28/2013 08:48:00 Document Registration [id number] 12/22/2012 15:17:00 Document Registration [id number] 12/22/2012 15:17:00 Document Registration [id number] 11/17/2018 09:40:00 11/17/2018 23:59:59 CLS [address]IM [address] [facility] [id number] 10/19/2018 11:00:00 Document Registration [id number] 04/13/2018 10:57:51 Document Registration
--- NOTE | 2018-11-21 21:31 | NUR ---
came to waiting room, called pt's name three times. pt not in restroom or waiting room
--- NOTE | 2018-11-21 21:51 | NUR ---
contacted jay adamson and requested a welfare check on pt d/t chief complaint
== END 2018-11-21 21:33 | disposition left against medical advice (07) ==
LOC: EDUNIT# 20:43 → ER 20:44
DX: R10.9 Unspecified abdominal pain (principal); R45.851 Suicidal ideations

== ENCOUNTER → 2018-12-09 | Outpatient (CLI) | payer OTHER ==
[~2018-12-09] MED LIST changes: +HOLD METFORMIN - RECEIVED CONTRAST 20 ML VIAL IV SCH; +IOHEXOL 350 MG/ML 100 ML (OMNIPAQUE 350) VIAL IV ONE
[2018-12-09 13:12] LABS: BUN/CREATININE RATIO 14; CALCIUM 9.1 MG/DL (8.5-10.1); CARBON DIOXIDE 23 MMOL/L (21-32); CHLORIDE 102 MMOL/L (98-107); CREATININE SERUM 0.99 MG/DL (0.60-1.30); GFR ESTIMATED > 60; GLUCOSE 271 MG/DL (70-105); POTASSIUM 4.1 MMOL/L (3.6-5.0); SODIUM 135 MMOL/L (135-145)
--- NOTE | 2018-12-09 13:51 | Diagnostic Imaging Report ---
PROCEDURE: CT abdomen and pelvis with contrast. TECHNIQUE: Multiple contiguous axial images were obtained through the abdomen and pelvis after administration of intravenous contrast. Auto Exposure Controls were utilized during the CT exam to meet ALARA standards for radiation dose reduction. INDICATION: Generalized abdominal pain. COMPARISON: No prior studies are available for comparison. FINDINGS: Imaging through the lung bases demonstrates minimal scarring in the lingula. The liver demonstrates generalized low density consistent with hepatic steatosis. No discrete liver mass is identified. Gallbladder is unremarkable. No biliary ductal dilatation is seen. The pancreas and spleen are unremarkable. No adrenal mass is detected. Kidneys are unremarkable. There is no hydronephrosis. Aorta is nonaneurysmal. No central retroperitoneal or mesenteric lymphadenopathy is detected. Small and large bowel loops are normal caliber. Extensive diverticulosis of the sigmoid colon is noted but no evidence of acute diverticulitis. No inflammatory changes in the abdomen or pelvis are seen. The appendix is visualized and unremarkable. There is no free fluid in the abdomen or pelvis. Bladder is unremarkable. Prostate gland is unremarkable. No pelvic lymphadenopathy is seen. IMPRESSION: 1. Hepatic steatosis. 2. Uncomplicated sigmoid diverticulosis. No acute abnormality in the abdomen or pelvis is identified. Dictated by: Dictated on workstation # [id number]
== END ==
LOC: RAD 12:39
PROVIDERS: ATTEND Nurse Practitioner Primary Care
DX: K76.0 Fatty (change of) liver, not elsewhere classified (principal); K57.30 Diverticulosis of large intestine without perforation or abscess without bleeding; Z87.19 Personal history of other diseases of the digestive system
CPT/HCPCS: 36415; 74177; 80048

== ENCOUNTER 2018-12-23 23:35 | Emergency (ER) | payer SELFPAY ==
[~2018-12-23 23:35] MED LIST changes: -HOLD METFORMIN - RECEIVED CONTRAST 20 ML VIAL IV SCH; -IOHEXOL 350 MG/ML 100 ML (OMNIPAQUE 350) VIAL IV ONE
[2018-12-24] MEDS ORDERED: POTA20TA15 PO (08:44)
[2018-12-24] MEDS ORDERED: FURO20TA4 PO (08:44)
== END 2018-12-24 00:16 | disposition left against medical advice (07) ==
LOC: EDUNIT# 23:35 → ER 23:39
DX: M79.89 Other specified soft tissue disorders (principal)

== ENCOUNTER 2018-12-24 07:09 | Emergency (ER) | payer OTHER ==
[~2018-12-24] VITALS: Ht 175.3 cm; Wt 118.8 kg
[2018-12-24 07:30] LABS: BILIRUBIN,URINE NEGATIVE (NEGATIVE); CLARITY,URINE CLEAR; COLOR,URINE YELLOW; GLUCOSE, URINE (UA) 4+ (NEGATIVE); KETONES,URINE NEGATIVE (NEGATIVE); LEUKOCYTE ESTERASE ,URINE NEGATIVE (NEGATIVE); NITRITE,URINE NEGATIVE (NEGATIVE); PH,URINE 6 (5-9); PROTEIN,URINE 2+ (NEGATIVE); UROBILINOGEN,URINE NORMAL (NORMAL)
[2018-12-24 07:40] LABS: BACTERIA,URINE NEGATIVE /HPF; SQUAMOUS EPITHELIAL CELL,UR RARE /HPF
[2018-12-24 07:49] LABS: BASOPHILS # (AUTO) 0.1 10^3/uL (0.0-0.1); BASOPHILS % (AUTO) 1 % (0-10); EOSINOPHILS # (AUTO) 0.6 10^3/uL (0.0-0.3); EOSINOPHILS % (AUTO) 6 % (0-10); HEMATOCRIT 41 % (40-54); HEMOGLOBIN 14.1 G/DL (13.3-17.7); LYMPHOCYTES # (AUTO) 1.4 X 10^3 (1.0-4.0); LYMPHOCYTES % (AUTO) 13 % (12-44); MEAN CORPUSCULAR HEMOGLOBIN 28 PG (25-34); MEAN CORPUSCULAR HGB CONC 34 G/DL (32-36); MEAN CORPUSCULAR VOLUME 82 FL (80-99); MEAN PLATELET VOLUME 9.7 FL (7.4-10.4); MONOCYTES # (AUTO) 0.6 X 10^3 (0.0-1.0); MONOCYTES % (AUTO) 6 % (0-12); NEUTROPHILS # (AUTO) 7.9 X 10^3 (1.8-7.8); NEUTROPHILS % (AUTO) 74 % (42-75); PLATELET COUNT 257 10^3/uL (130-400); RED CELL DISTRIBUTION WIDTH 14.3 % (10.0-14.5); WHITE BLOOD COUNT 10.6 10^3/uL (4.3-11.0)
[2018-12-24 07:49] LABS: AMPHETAMINE SCREEN, URINE NEGATIVE (NEGATIVE); BARBITURATE SCREEN URINE NEGATIVE (NEGATIVE); BENZODIAZEPINES SCREEN URINE NEGATIVE (NEGATIVE); CANNABINOID SCREEN, URINE NEGATIVE (NEGATIVE); COCAINE SCREEN URINE NEGATIVE (NEGATIVE); METHADONE STAT NEGATIVE (NEGATIVE); METHAMPHETAMINE SCREEN URINE S NEGATIVE (NEGATIVE); OPIATE SCREEN URINE NEGATIVE (NEGATIVE); OXYCODONE STAT NEGATIVE (NEGATIVE); PROPOXYPHENE STAT NEGATIVE (NEGATIVE); TRICYCLIC ANTIDEPRESSANTS SCRE NEGATIVE (NEGATIVE)
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
[2018-12-24 08:11] LABS: ALANINE AMINOTRANSFERASE 39 U/L (0-55); ALBUMIN 4.3 GM/DL (3.2-4.5); ALKALINE PHOSPHATASE 116 U/L (40-136); AMMONIA 21 UMOL/L (11-32); BILIRUBIN,TOTAL 0.9 MG/DL (0.1-1.0); BUN/CREATININE RATIO 12; CARBON DIOXIDE 25 MMOL/L (21-32); CHLORIDE 102 MMOL/L (98-107); CREATININE SERUM 1.13 MG/DL (0.60-1.30); GFR ESTIMATED > 60; GLUCOSE 285 MG/DL (70-105); POTASSIUM 4.6 MMOL/L (3.6-5.0); SALICYLATE < 5.0 MG/DL (5.0-20.0); SODIUM 137 MMOL/L (135-145); TOTAL PROTEIN 7.9 GM/DL (6.4-8.2)
[2018-12-24 08:12] LABS: ACETAMINOPHEN < 10 UG/ML (10-30)
[2018-12-24] MEDS ORDERED: POTA20TA15 PO (08:44)
[2018-12-24] MEDS ORDERED: FURO20TA4 PO (08:44)
[2018-12-24 08:54] VITALS: BP 148/88
== END 2018-12-24 08:54 | disposition home or self-care (01) ==
LOC: EDUNIT# 07:09 → ER 07:10
DX: I83.028 Varicose veins of left lower extremity with ulcer other part of lower leg (principal); E11.622 Type 2 diabetes mellitus with other skin ulcer; L97.829 Non-pressure chronic ulcer of other part of left lower leg with unspecified severity; L97.819 Non-pressure chronic ulcer of other part of right lower leg with unspecified severity; Z94.6 Bone transplant status; Z87.891 Personal history of nicotine dependence; Z88.5 Allergy status to narcotic agent; Z88.6 Allergy status to analgesic agent; Z88.8 Allergy status to other drugs, medicaments and biological substances; Z79.4 Long term (current) use of insulin
CPT/HCPCS: 36415; 80053; 80306; 80320; 80329; 81000; 82140; 85025

== ENCOUNTER 2019-01-07 08:59 | Emergency (ER) | payer SELFPAY ==
[~2019-01-07 08:59] MED LIST changes: +FURO20TA4 PO; +POTA20TA15 PO
== END 2019-01-07 09:14 | disposition left against medical advice (07) ==
LOC: EDUNIT# 08:59 → ER 09:00
DX: M79.604 Pain in right leg (principal); M79.89 Other specified soft tissue disorders

== ENCOUNTER → 2019-01-19 | Outpatient (CLI) | payer SELFPAY ==
[~2019-01-19] MED LIST changes: +CATHETER FLUSH 10 ML SYR IV PRN; +HOLD METFORMIN - RECEIVED CONTRAST 20 ML VIAL IV SCH; +IOHEXOL 350 MG/ML 150 ML (OMNIPAQUE 350) VIAL IV ONE; +NS 100 ML (IVPB) BAG IV ONE
[2019-01-19 13:59] LABS: ALBUMIN 3.8 GM/DL (3.2-4.5); BILIRUBIN,TOTAL 0.5 MG/DL (0.1-1.0); CALCIUM 9.1 MG/DL (8.5-10.1); CREATININE SERUM 1.46 MG/DL (0.60-1.30); POTASSIUM 4.2 MMOL/L (3.6-5.0); TOTAL PROTEIN 7.1 GM/DL (6.4-8.2)
--- NOTE | 2019-01-19 16:03 | Diagnostic Imaging Report ---
INDICATION: Peripheral vascular disease. TECHNIQUE: Axial imaging through the abdomen and pelvis as well as bilateral lower extremities was performed after the administration of intravenous contrast and utilizing the CT angiography protocol. Multiplanar, 3-D and MIP reformations were also performed. COMPARISON: No prior CT runoff studies are available for comparison. FINDINGS: The lung bases are clear. Liver demonstrates low density consistent with hepatic steatosis. The gallbladder is unremarkable. No biliary ductal dilatation is seen. The pancreas and spleen are unremarkable. No adrenal mass is detected. Kidneys are unremarkable. Aorta is calcified but nonaneurysmal. The celiac trunk origin is widely patent. The SMA origin is widely patent. The ADDIE is patent. There are two renal arteries on the right which appear to be patent. There is a single renal artery on the left which does show some calcified plaque at the origin but no high-grade stenosis is identified. Both common iliacs demonstrate calcified plaque but no significant stenosis is seen. Bilateral external iliac arteries demonstrate mild plaquing but no stenosis is detected. Bilateral common femoral arteries are patent. Bilateral superficial femoral arteries are widely patent. Bilateral popliteal arteries are widely patent. Right anterior tibial artery is widely patent and supplies the dorsalis pedis. The tibioperoneal trunk is patent. There is flow within the posterior and peroneal arteries to the ankle. On the left, the tibioperoneal trunk is patent. The posterior tibial and peroneal arteries appear to be widely patent to the ankle. IMPRESSION: There is some mild plaquing in the abdominal aorta and common iliac vessels. There is no evidence of a high-grade stenosis or occlusion. There is three-vessel runoff to bilateral ankles. Dictated by: Dictated on workstation # [id number]
== END ==
LOC: RAD 13:12
PROVIDERS: ATTEND Nurse Practitioner Primary Care
DX: I73.9 Peripheral vascular disease, unspecified (principal); I70.0 Atherosclerosis of aorta
CPT/HCPCS: 36415; 75635; 80053

== ENCOUNTER 2019-02-06 20:26 | Emergency (ER) | payer MEDICAID ==
[~2019-02-06] VITALS: Ht 175.3 cm; Wt 117.9 kg
[~2019-02-06 20:26] MED LIST changes: -CATHETER FLUSH 10 ML SYR IV PRN; -HOLD METFORMIN - RECEIVED CONTRAST 20 ML VIAL IV SCH; -IOHEXOL 350 MG/ML 150 ML (OMNIPAQUE 350) VIAL IV ONE; -NS 100 ML (IVPB) BAG IV ONE
[2019-02-06] MEDS ORDERED: NS IV 1000 ML 1,000 ML IV ONE ×2 (20:43→22:05)
[2019-02-06] MEDS ORDERED: inSUlin (REGULAR) HUMAN 1 UNIT/0.01 ML (CHARGE PER UNIT) IV ONE (20:45)
[2019-02-06] MEDS ORDERED: LABETALOL HCL 20 MG/4 ML VIAL IV ONE (20:45)
[2019-02-06 20:55] LABS: BASOPHILS # (AUTO) 0.1 10^3/uL (0.0-0.1); BASOPHILS % (AUTO) 1 % (0-10); EOSINOPHILS # (AUTO) 0.3 10^3/uL (0.0-0.3); EOSINOPHILS % (AUTO) 4 % (0-10); HEMATOCRIT 39 % (40-54); HEMOGLOBIN 13.2 G/DL (13.3-17.7); LYMPHOCYTES # (AUTO) 1.5 X 10^3 (1.0-4.0); LYMPHOCYTES % (AUTO) 18 % (12-44); MEAN CORPUSCULAR HEMOGLOBIN 28 PG (25-34); MEAN CORPUSCULAR HGB CONC 34 G/DL (32-36); MEAN CORPUSCULAR VOLUME 82 FL (80-99); MEAN PLATELET VOLUME 10.3 FL (7.4-10.4); MONOCYTES # (AUTO) 0.5 X 10^3 (0.0-1.0); MONOCYTES % (AUTO) 6 % (0-12); NEUTROPHILS # (AUTO) 5.9 X 10^3 (1.8-7.8); NEUTROPHILS % (AUTO) 71 % (42-75); PLATELET COUNT 244 10^3/uL (130-400); RED CELL DISTRIBUTION WIDTH 14.3 % (10.0-14.5); WHITE BLOOD COUNT 8.4 10^3/uL (4.3-11.0)
[2019-02-06 21:01] LABS: INR 0.9 (0.8-1.4); PROTHROMBIN TIME PATIENT 12.8 SEC (12.2-14.7)
[2019-02-06 21:11] LABS: ALANINE AMINOTRANSFERASE 36 U/L (0-55); ALBUMIN 3.9 GM/DL (3.2-4.5); ALKALINE PHOSPHATASE 143 U/L (40-136); BILIRUBIN,TOTAL 0.4 MG/DL (0.1-1.0); BUN/CREATININE RATIO 9; CALCIUM 9.3 MG/DL (8.5-10.1); CARBON DIOXIDE 20 MMOL/L (21-32); CHLORIDE 100 MMOL/L (98-107); CREATINE KINASE 196 U/L (30-200); CREATININE SERUM 1.38 MG/DL (0.60-1.30); GFR ESTIMATED 53; LIPASE 13 U/L (8-78); POTASSIUM 4.5 MMOL/L (3.6-5.0); SODIUM 133 MMOL/L (135-145); TOTAL PROTEIN 7.7 GM/DL (6.4-8.2)
[2019-02-06 21:11] LABS: BILIRUBIN,URINE NEGATIVE (NEGATIVE); CLARITY,URINE CLEAR; COLOR,URINE YELLOW; GLUCOSE, URINE (UA) 4+ (NEGATIVE); KETONES,URINE NEGATIVE (NEGATIVE); LEUKOCYTE ESTERASE ,URINE NEGATIVE (NEGATIVE); NITRITE,URINE NEGATIVE (NEGATIVE); PH,URINE 5 (5-9); PROTEIN,URINE 2+ (NEGATIVE); UROBILINOGEN,URINE NORMAL (NORMAL)
[2019-02-06 21:12] LABS: GLUCOSE 515 MG/DL (70-105)
[2019-02-06 21:13] LABS: ACETAMINOPHEN < 10 UG/ML (10-30)
[2019-02-06 21:20] LABS: BACTERIA,URINE NEGATIVE /HPF; SQUAMOUS EPITHELIAL CELL,UR RARE /HPF
--- NOTE | 2019-02-06 21:20 | Diagnostic Imaging Report ---
INDICATION: Right leg pain EXAM: Portable chest at 9:09 PM FINDINGS: The heart size and pulmonary vascularity are normal. The lungs are clear. There are no effusions or pneumothoraces. IMPRESSION: 1. Negative chest. Dictated by: Dictated on workstation # [id number]
[2019-02-06 21:24] LABS: AMPHETAMINE SCREEN, URINE NEGATIVE (NEGATIVE); BARBITURATE SCREEN URINE NEGATIVE (NEGATIVE); BENZODIAZEPINES SCREEN URINE NEGATIVE (NEGATIVE); CANNABINOID SCREEN, URINE NEGATIVE (NEGATIVE); COCAINE SCREEN URINE NEGATIVE (NEGATIVE); METHADONE STAT NEGATIVE (NEGATIVE); METHAMPHETAMINE SCREEN URINE S NEGATIVE (NEGATIVE); OPIATE SCREEN URINE NEGATIVE (NEGATIVE); OXYCODONE STAT NEGATIVE (NEGATIVE); PROPOXYPHENE STAT NEGATIVE (NEGATIVE); TRICYCLIC ANTIDEPRESSANTS SCRE NEGATIVE (NEGATIVE)
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
[2019-02-06 21:31] LABS: CREATINE KINASE MB 3.9 NG/ML (<6.6); TSH (THYROID ANALYZER) 2.38 UIU/ML (0.35-4.94)
[2019-02-06] MEDS ORDERED: meTOprolol SUCCINATE 100 MG (TOPROL XL) TAB PO ONE (22:15)
[2019-02-06] MEDS ORDERED: KETOROLAC 30 MG/ML VIAL IVP ONE (22:15)
--- NOTE | 2019-02-06 22:17 | NUR ---
PT STATES HIS FEET HURT AND NEEDS SOMETHING FOR PAIN. TORADOL GIVEN IVP PER DR. LIANET SHAW.
--- NOTE | 2019-02-06 22:30 | NUR ---
UPON ASSESSING PT TO RE-EVALUATE PAIN, PT STATES "THE PAIN IS GETTING WORSE" WHEN ASKED IF PAIN ONLY IN FEET PT STATES, "NO, ITS MY KNEE THAT HURTS."
--- NOTE | 2019-02-06 22:55 | NUR ---
2ND LITER OF NS COMPLETE DR. MARTINI NOTIFIED AND ORDERED ACCU CHECK AND REPEAT TROPONIN LEVEL.
[2019-02-06 23:00] VITALS: BP 175/99
--- NOTE | 2019-02-06 23:00 | NUR ---
CLAIRE PCCT ATTEMPTED TO DRAW 2ND TROPONIN AND ACCU CHECK, BUT PT STOOD UP AND TOOK OUT HIS OWN IV, DRIPPING BLOOD THROUGH OUT FLOOR OF ROOM. PT STATES, "I'M GOING HOME." PT NOTIFIED OF BENEFITS OF STAYING WITH FURTHER LAB TESTING, TREATMENT OF CURRENT CONDITIONS SUCH HIGH BLOOD PRESSURE AND RISKS OF LEAVING SUCH . PT STATES HE IS STILL LEAVING AND WHEN ASKED TO SIGN AMA FORM STATES, "I AIN'T SIGNIN' NOTHIN'".
== END 2019-02-06 23:00 | disposition left against medical advice (07) ==
LOC: EDUNIT# 20:26 → ER 20:27
DX: E11.9 Type 2 diabetes mellitus without complications (principal); I10 Essential (primary) hypertension; M79.661 Pain in right lower leg; M79.662 Pain in left lower leg; G89.29 Other chronic pain; Z91.19 Patient's noncompliance with other medical treatment and regimen; Z88.5 Allergy status to narcotic agent; Z88.6 Allergy status to analgesic agent; Z88.8 Allergy status to other drugs, medicaments and biological substances; Z79.4 Long term (current) use of insulin
CPT/HCPCS: 36415; 71045; 80053; 80306; 80320; 80329; 81000; 82550; 82553; 82962; 83690; 83735; 83880; 84443; 84484; 85025; 85610; 85730; 93005; 93041

== ENCOUNTER 2019-02-08 13:56 | Emergency (ER) | payer MEDICAID ==
[~2019-02-08] VITALS: Ht 175.3 cm; Wt 127.0 kg
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
[2019-02-08] MEDS ORDERED: TRAM-42 PO (15:00)
[2019-02-08 15:03] VITALS: BP 192/100
== END 2019-02-08 15:03 | disposition home or self-care (01) ==
LOC: EDUNIT# 13:56 → ER 13:57
DX: E11.40 Type 2 diabetes mellitus with diabetic neuropathy, unspecified (principal); Z88.5 Allergy status to narcotic agent; Z88.6 Allergy status to analgesic agent; Z88.8 Allergy status to other drugs, medicaments and biological substances; Z79.4 Long term (current) use of insulin; Z87.891 Personal history of nicotine dependence
CPT/HCPCS: 99283

== ENCOUNTER → 2019-02-23 | Emergency (ER) | payer MEDICAID | LOC: ER 19:28 ==

== ENCOUNTER 2019-02-24 18:34 | Emergency (ER) | payer MEDICAID ==
[~2019-02-24] VITALS: Ht 175.3 cm; Wt 81.6 kg
[~2019-02-24 18:34] MED LIST changes: +TRAM-42 PO
--- NOTE | 2019-02-24 18:57 | NUR ---
ormal for him. pt here by self. pt alert gcs 15. pt relates " write me scripts and im out of here". pt requests reglan omeprazole and tramadol. pt relates ongoing pain for 6 months to " abd, feet, legs, wrist, and shoulder. pain rating 10. pt appears obese and overweight especially the abd. pt c/o dyspnea " little bit" relates h/o copd. no acute sighns of dyspnea noted. pt says abd size n lungs cta with decreased aeration bases bilaterally. abd firm and distended tender to palpation bilateral upper quads only. neg pulsating massess noted. done inna pt at 1904.
--- NOTE | 2019-02-24 19:06 | NUR ---
pt requested and received h20 despite me saying no for now.
--- NOTE | 2019-02-24 19:20 | NUR ---
i overheard dr ask pt if he wanted lab work. for abd pain. pt refused and said just give me the prescriptions.
[2019-02-24] MEDS ORDERED: TRAM50TA2 PO (19:26)
[2019-02-24] MEDS ORDERED: METO-310 PO (19:26)
[2019-02-24] MEDS ORDERED: OMEP40CA36 PO (19:26)
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
[2019-02-24 19:35] VITALS: BP 156/97
--- NOTE | 2019-02-24 19:35 | NUR ---
d/c instructions to pt. told to read all papers. scripts paper and fax. pt left ambulaory by self. pt nows f/u. no handtyped by information on the chart. pt had no iv. pt said he wasnt going to read the d/c papers and he wasnt going to f/u.
== END 2019-02-24 19:35 | disposition home or self-care (01) ==
LOC: EDUNIT# 18:34 → ER 18:35
DX: R10.84 Generalized abdominal pain (principal); M25.579 Pain in unspecified ankle and joints of unspecified foot; M79.604 Pain in right leg; M79.605 Pain in left leg; E11.9 Type 2 diabetes mellitus without complications; J44.9 Chronic obstructive pulmonary disease, unspecified; I10 Essential (primary) hypertension; Z88.5 Allergy status to narcotic agent; Z88.6 Allergy status to analgesic agent; Z88.8 Allergy status to other drugs, medicaments and biological substances; Z79.84 Long term (current) use of oral hypoglycemic drugs
CPT/HCPCS: 99281

== ENCOUNTER 2019-02-28 20:04 | Emergency (ER) | payer MEDICAID ==
[~2019-02-28] VITALS: Ht 175.3 cm; Wt 81.6 kg
[~2019-02-28 20:04] MED LIST changes: +METO-310 PO; +OMEP40CA36 PO; +TRAM50TA2 PO
[2019-02-28] MEDS ORDERED: inSUlin (REGULAR) HUMAN 1 UNIT/0.01 ML (CHARGE PER UNIT) IV ONE (20:30)
[2019-02-28] MEDS ORDERED: LACTATED RINGERS 1,000 ML IV SCH (20:30)
--- NOTE | 2019-02-28 20:31 | ED General ---
General Chief Complaint: Glucose Problems Stated Complaint: DIABETIC ISSUES Source of Information: Patient Exam Limitations: No Limitations History of Present Illness Date Seen by Provider: Feb 28, 2019 Time Seen by Provider: 20:30 Initial Comments To ER by private vehicle with reports of needing a shot of insulin and pain pills. He quit taking his insulin 2 weeks ago. [facility] but states that he was taking 5 shot 3 times a day and was tired of it. He is now out of the insulin. He would also like pain pills for the neuropathy in both of his feet Allergies and Home Medications Allergies Coded Allergies: hydrocodone (Unverified Allergy, Unknown, hives, 02/08/19) aspirin (Unverified Adverse Reaction, Unknown, angioedema, 02/08/19) lisinopril (Unverified Adverse Reaction, Unknown, angioedema, 02/08/19) Home Medications Amlodipine Besylate 5 Mg Tablet, 5 MG PO DAILY, (Reported) Epinephrine 0.3 Mg/0.3/Syringe Pen.injctr, 0.3 MG IM PRN, (Reported) prn anaphylaxis Furosemide 20 Mg Tablet, 1 TAB PO each a.m. Prescribed by: MIKE CASTILLO on 12/24/18843 Glyburide 5 Mg Tablet, 4 MG PO BIDAC, (Reported) Insulin Aspart 300 Units/3 Ml Solution, 10 UNITS SQ AC Prescribed by: KARON CAMERON on 02/28/192204 Insulin Detemir 100 Unit/1 Ml Insuln.pen, 20 UNIT SQ HS Prescribed by: KARON CAMERON on 02/28/192158 Metformin Hcl 500 Mg Tablet, 2 EACH PO BID, (Reported) Metoclopramide HCl 10 Mg Tablet, 10 MG PO TID Prescribed by: KARON CAMERON on 02/24/191925 Omeprazole 40 Mg Capsule.dr, 40 MG PO DAILY Prescribed by: KARON CAMERON on 02/24/191925 Potassium Chloride 20 Meq Tab.er.prt, 1 TAB PO ddaily Prescribed by: MIKE CASTILLO on 12/24/18843 Tramadol HCl 50 Mg Tablet, 50 MG PO Q6H PRN for PAIN-MODERATE Prescribed by: KARON CAMERON on 02/08/19 1500 Tramadol HCl 50 Mg Tablet, 50 MG PO Q6H PRN for PAIN Prescribed by: KARON CAMERON on 02/24/191925 Patient Home Medication List Home Medication List Reviewed: Yes Review of Systems Review of Systems Constitutional: see HPI EENTM: see HPI Respiratory: no symptoms reported Cardiovascular: no symptoms reported Genitourinary: no symptoms reported Musculoskeletal: see HPI Skin: no symptoms reported Psychiatric/Neurological: No Symptoms Reported Hematologic/Lymphatic: No Symptoms Reported Past Mvkfyri-Fpvybt-Ccqkmo Hx Patient Social History Drug of Choice: IV Meth Type Used: Cigarettes Recent Foreign Travel: No Contact w/Someone Who Travel: No Recent Hopitalizations: No Past Medical History Surgeries: Yes (BONE GRAFT TO RT WRIST FROM HIP) Orthopedic Respiratory: Yes COPD Cardiac: Yes Hypertension Neurological: No Reproductive Disorders: No Genitourinary: No Gastrointestinal: No Musculoskeletal: Yes (CHRONIC GENERALIZED PAIN COMPLAINTS, ESPECIALLY TO LEGS AND FEET) Endocrine: Yes (OBESE) Diabetes, Insulin dep HEENT: No Cancer: No Psychosocial: No Integumentary: No Blood Disorders: No Physical Exam Vital Signs Vital Signs - First Documented 02/28/19 20:16 Temp 97.4 Pulse 76 Resp 18 B/P (MAP) 180/101 (127) Capillary Refill : Height, Weight, BMI Height: 5'9.00" Weight: 180lbs. oz. 81.868037jc; BMI Method:Stated General Appearance: No Apparent Distress, WD/WN, Obese Eyes: Bilateral Eye Normal Inspection, Bilateral Eye PERRL, Bilateral Eye EOMI Neck: Full Range of Motion, Normal Inspection Respiratory: No Accessory Muscle Use, No Respiratory Distress Gastrointestinal: Non Tender, Soft Extremity: Normal Capillary Refill, Normal Inspection Neurologic/Psychiatric: Alert, Oriented x3, No Motor/Sensory Deficits Skin: Normal Color, Warm/Dry Progress/Results/Core Measures Suspected Sepsis SIRS Temperature: Pulse: Respiratory Rate: Laboratory Tests 02/28/19 20:50: White Blood Count 8.7 Blood Pressure / Mean: Laboratory Tests 02/28/19 20:50: Creatinine 1.50H, Platelet Count 274, Total Bilirubin 0.3 Results/Orders Lab Results Laboratory Tests Test 02/28/19 20:21 02/28/19 20:50 02/28/19 21:00 02/28/19 21:56 Range/Units Glucometer > 600 *H 378 H 70-110 MG/DL White Blood Count 8.7 4.3-11.0 10^3/uL Red Blood Count 4.95 4.35-5.85 10^6/uL Hemoglobin 13.4 13.3-17.7 G/DL Hematocrit 39 L 40-54 % Mean Corpuscular Volume 79 L 80-99 FL Mean Corpuscular Hemoglobin 27 25-34 PG Mean Corpuscular Hemoglobin Concent 34 32-36 G/DL Red Cell Distribution Width 14.5 10.0-14.5 % Platelet Count 274 130-400 10^3/uL Mean Platelet Volume 10.9 H 7.4-10.4 FL Neutrophils (%) (Auto) 73 42-75 % Lymphocytes (%) (Auto) 18 12-44 % Monocytes (%) (Auto) 5 0-12 % Eosinophils (%) (Auto) 4 0-10 % Basophils (%) (Auto) 1 0-10 % Neutrophils # (Auto) 6.3 1.8-7.8 X 10^3 Lymphocytes # (Auto) 1.6 1.0-4.0 X 10^3 Monocytes # (Auto) 0.4 0.0-1.0 X 10^3 Eosinophils # (Auto) 0.3 0.0-0.3 10^3/uL Basophils # (Auto) 0.1 0.0-0.1 10^3/uL Sodium Level 128 L 135-145 MMOL/L Potassium Level 4.6 3.6-5.0 MMOL/L Chloride Level 94 L 98-107 MMOL/L Carbon Dioxide Level 19 L 21-32 MMOL/L Anion Gap 15 H 5-14 MMOL/L Blood Urea Nitrogen 16 7-18 MG/DL Creatinine 1.50 H 0.60-1.30 MG/DL Estimat Glomerular Filtration Rate 48 BUN/Creatinine Ratio 11 Glucose Level 634 *H 70-105 MG/DL Calcium Level 9.3 8.5-10.1 MG/DL Corrected Calcium 9.3 8.5-10.1 MG/DL Total Bilirubin 0.3 0.1-1.0 MG/DL Aspartate Amino Transf (AST/SGOT) 26 5-34 U/L Alanine Aminotransferase (ALT/SGPT) 35 0-55 U/L Alkaline Phosphatase 171 H 40-136 U/L Total Protein 7.7 6.4-8.2 GM/DL Albumin 4.0 3.2-4.5 GM/DL Beta-Hydroxybutyrate (Chem panel) 0.25 0.00-0.27 MMOL/L Urine Color YELLOW Urine Clarity CLEAR Urine pH 5 5-9 Urine Specific [place] 1.010 L 1.016-1.022 Urine Protein 2+ H NEGATIVE Urine Glucose (UA) 4+ H NEGATIVE Urine Ketones NEGATIVE NEGATIVE Urine Nitrite NEGATIVE NEGATIVE Urine Bilirubin NEGATIVE NEGATIVE Urine Urobilinogen NORMAL NORMAL MG/DL Urine Leukocyte Esterase NEGATIVE NEGATIVE Urine RBC (Auto) NEGATIVE NEGATIVE Urine RBC NONE /HPF Urine WBC NONE /HPF Urine Squamous Epithelial Cells RARE /HPF Urine Crystals NONE /LPF Urine Bacteria NEGATIVE /HPF Urine Casts NONE /LPF Urine Mucus NEGATIVE /LPF Urine Culture Indicated NO My Orders Orders - KARON CAMERON APRN Ed Iv/Invasive Line Start (02/28/19 20:22) Cbc With Automated Diff (02/28/19 20:22) Comprehensive Metabolic Panel (02/28/19 20:22) Ua Culture If Indicated (02/28/19 20:22) Beta Hydroxybutyrate (02/28/19 20:22) Lactated Ringers (Lr 1000 Ml Iv Solution (02/28/19 20:30) Insulin Determir (Per Unit) (Levemir (Pe (02/28/19 20:30) Insulin (Regular) Human (Humulin R (Per (02/28/19 20:30) Medications Given in ED Current Medications Medications Dose Ordered Sig/Zack Route Start Time Stop Time Status Last Admin Dose Admin Insulin Detemir 10 unit ONCE ONCE SQ 02/28/19 20:30 02/28/19 20:31 DC 02/28/19 21:00 10 UNIT Insulin Human Regular 10 unit ONCE ONCE IV 02/28/19 20:30 02/28/19 20:31 DC 02/28/19 21:00 10 UNIT Vital Signs/I&O 02/28/19 20:16 Temp 97.4 Pulse 76 Resp 18 B/P (MAP) 180/101 (127) Capillary Refill : Departure Communication (Admissions) He states that he used to take a long-acting insulin 30 units at bedtime and a rapid acting insulin 10 units with meals. Impression Primary Impression: Hyperglycemia Disposition: 01 HOME, SELF-CARE Condition: Stable Departure-Patient Inst. Decision time for Depature: 21:58 Referrals: [facility] (PCP/Family) Primary Care Physician Patient Instructions: Diabetes Type 2 (DC) Add. Discharge Instructions: 1. Insulin as directed according to year old insulin regimen. All discharge instructions reviewed with patient and/or family. Voiced understanding. Scripts Insulin Aspart (Novolog Flexpen) 300 Units/3 Ml Solution 10 UNITS SQ AC, #1 EA 2 Refills Prov: KARON CAMERON APRN 02/28/19 Insulin Detemir (Levemir Flextouch) 100 Unit/1 Ml Insuln.pen 20 UNIT SQ HS, #1 EA Prov: KARON CAMERON DOUGH SHEETER 02/28/19 KARON CAMERON APRN Feb 28, 2019 20:31
[2019-02-28 20:57] LABS: BASOPHILS # (AUTO) 0.1 10^3/uL (0.0-0.1); BASOPHILS % (AUTO) 1 % (0-10); EOSINOPHILS # (AUTO) 0.3 10^3/uL (0.0-0.3); EOSINOPHILS % (AUTO) 4 % (0-10); HEMATOCRIT 39 % (40-54); HEMOGLOBIN 13.4 G/DL (13.3-17.7); LYMPHOCYTES # (AUTO) 1.6 X 10^3 (1.0-4.0); LYMPHOCYTES % (AUTO) 18 % (12-44); MEAN CORPUSCULAR HEMOGLOBIN 27 PG (25-34); MEAN CORPUSCULAR HGB CONC 34 G/DL (32-36); MEAN CORPUSCULAR VOLUME 79 FL (80-99); MEAN PLATELET VOLUME 10.9 FL (7.4-10.4); MONOCYTES # (AUTO) 0.4 X 10^3 (0.0-1.0); MONOCYTES % (AUTO) 5 % (0-12); NEUTROPHILS # (AUTO) 6.3 X 10^3 (1.8-7.8); NEUTROPHILS % (AUTO) 73 % (42-75); PLATELET COUNT 274 10^3/uL (130-400); RED CELL DISTRIBUTION WIDTH 14.5 % (10.0-14.5); WHITE BLOOD COUNT 8.7 10^3/uL (4.3-11.0)
[2019-02-28 21:09] LABS: BILIRUBIN,URINE NEGATIVE (NEGATIVE); CLARITY,URINE CLEAR; COLOR,URINE YELLOW; GLUCOSE, URINE (UA) 4+ (NEGATIVE); KETONES,URINE NEGATIVE (NEGATIVE); LEUKOCYTE ESTERASE ,URINE NEGATIVE (NEGATIVE); NITRITE,URINE NEGATIVE (NEGATIVE); PH,URINE 5 (5-9); PROTEIN,URINE 2+ (NEGATIVE); UROBILINOGEN,URINE NORMAL (NORMAL)
[2019-02-28 21:22] LABS: BACTERIA,URINE NEGATIVE /HPF; SQUAMOUS EPITHELIAL CELL,UR RARE /HPF
[2019-02-28 21:35] LABS: BILIRUBIN,TOTAL 0.3 MG/DL (0.1-1.0); CALCIUM 9.3 MG/DL (8.5-10.1); CREATININE SERUM 1.5 MG/DL (0.60-1.30); POTASSIUM 4.6 MMOL/L (3.6-5.0); TOTAL PROTEIN 7.7 GM/DL (6.4-8.2)
[2019-02-28] MEDS ORDERED: INSU100I29 SQ (21:59)
[2019-02-28] MEDS ORDERED: INSU100I14 SQ (22:05)
[2019-02-28 22:15] VITALS: BP 165/99
== END 2019-02-28 22:15 | disposition home or self-care (01) ==
LOC: EDUNIT# 20:04 → ER 20:05
DX: E11.65 Type 2 diabetes mellitus with hyperglycemia (principal); E11.40 Type 2 diabetes mellitus with diabetic neuropathy, unspecified; J44.9 Chronic obstructive pulmonary disease, unspecified; I10 Essential (primary) hypertension; Z91.14 Patient's other noncompliance with medication regimen; Z88.5 Allergy status to narcotic agent; Z88.6 Allergy status to analgesic agent; Z88.8 Allergy status to other drugs, medicaments and biological substances; Z79.4 Long term (current) use of insulin
CPT/HCPCS: 36415; 80053; 81000; 82010; 82962; 85025; 96361; 96372; 96374

== ENCOUNTER 2019-03-14 18:35 | Emergency (ER) | payer MEDICAID ==
[~2019-03-14] VITALS: Ht 175.3 cm; Wt 81.6 kg
[~2019-03-14 18:35] MED LIST changes: +INSU100I14 SQ; +INSU100I29 SQ
[2019-03-14] MEDS ORDERED: NS IV 1000 ML 1,000 ML IV ONE (18:45)
[2019-03-14 18:49] VITALS: BP 0/0
--- NOTE | 2019-03-14 18:54 | ED General ---
General Stated Complaint: DIABETIC ISSUES Source of Information: Patient, Old Records History of Present Illness Date Seen by Provider: Mar 14, 2019 Time Seen by Provider: 18:43 Initial Comments PT ARRIVES VIA POV --AMBULATES IN ON OWN WITHOUT DIFFICULTY STATES "I NEED REFILLS ON MY TRAMADOL AND REGLAN" STATES "THEY WOULDN'T REFILL THEM AT [facility] WALK IN CLINIC EIT HER"--STATES HE WAS THERE 30 MINUTES AGO PT IS DIABETIC AND CLAIMS HE LAST TOOK INSULIN AT NOON HAS NOT CHECKED HIS BLOOD SUGAR IN "[place]" ACCUCHECK IS 489 ON ARRIVAL HERE PT HAS BEEN HERE MULTIPLE TIMES--11 VISITS HERE SINCE OCTOBER REPEATEDLY HERE FOR REFILLS ON MEDICATIONS: HERE 02/06 FOR REFILLS ON PAIN MEDICATIONS HERE 02/08 FOR REFILLS ON PAIN MEDICATIONS--RX FOR TRAMADOL #14 HERE 02/23 --LEFT WITHOUT BEING SEEN HERE 02/24 FOR MEDICATION REFILLS--GIVEN RX FOR TRAMADOL #14, OMEPRAZOLE #30, REGLAN #30 HERE 02/28 FOR MEDICATION REFILLS--WANTED "SHOT" AND REFILLS ON PAIN PILLS--HAD BEEN OUT OF INSULIN AT THAT TIME WELL--GIVEN RX'S FOR NOVOLOG AND LEVEMIR HAS LEFT WITHOUT BEING SEEN OR LEFT AMA ON SEVERAL OCCASIONS PT REPEATEDLY REFUSES TO FOLLOW UP WITH [facility] FOR REGULAR APPOINTMENTS PT HAS ALSO FREQUENTED [facility] WELL--IS UNKNOWN WHAT RX'S, IF ANY, HE HAS RECEIVED FROM THERE PT HAS REPORTED THAT HE JUST GOT OUT OF NURSING HOME EARLIER THIS YEAR [facility] Allergies and Home Medications Allergies Coded Allergies: hydrocodone (Unverified Allergy, Unknown, hives, 02/08/19) aspirin (Unverified Adverse Reaction, Unknown, angioedema, 02/08/19) lisinopril (Unverified Adverse Reaction, Unknown, angioedema, 02/08/19) Home Medications Amlodipine Besylate 5 Mg Tablet, 5 MG PO DAILY, (Reported) Epinephrine 0.3 Mg/0.3/Syringe Pen.injctr, 0.3 MG IM PRN, (Reported) prn anaphylaxis Furosemide 20 Mg Tablet, 1 TAB PO each a.m. Prescribed by: MIKE CASTILLO on 12/24/18 0844 Glyburide 5 Mg Tablet, 4 MG PO BIDAC, (Reported) Insulin Aspart 300 Units/3 Ml Solution, 10 UNITS SQ AC Prescribed by: KARON CAMERON on 02/28/192204 Insulin Detemir 100 Unit/1 Ml Insuln.pen, 20 UNIT SQ HS Prescribed by: KARON CAMERON on 02/28/192158 Metformin Hcl 500 Mg Tablet, 2 EACH PO BID, (Reported) Metoclopramide HCl 10 Mg Tablet, 10 MG PO TID Prescribed by: KARON CAMERON on 02/24/191925 Omeprazole 40 Mg Capsule.dr, 40 MG PO DAILY Prescribed by: KARON CAMERON on 02/24/191925 Potassium Chloride 20 Meq Tab.er.prt, 1 TAB PO ddaily Prescribed by: MIKE CASTILLO on 12/24/18 0844 Tramadol HCl 50 Mg Tablet, 50 MG PO Q6H PRN for PAIN-MODERATE Prescribed by: KARON CAMERON on 02/08/19 1500 Tramadol HCl 50 Mg Tablet, 50 MG PO Q6H PRN for PAIN Prescribed by: KARON CAMERON on 02/24/191925 Patient Home Medication List Home Medication List Reviewed: Yes Review of Systems Review of Systems Constitutional: other (UNABLE TO OBTAIN) Past Gugowmm-Xpptcz-Becfty Hx Past Med/Social Hx: Reviewed and Corrections made Patient Social History Alcohol Use: Past History (HX OF ABUSE, CLAIMS HE QUIT 20 YEARS AGO) Recreational Drug Use: Yes (+ IV METH USE) 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 Smoking Status: Former Smoker (1 PPD, QUIT 12 YEARS AGO) Type Used: Cigarettes Recent Foreign Travel: No Contact w/Someone Who Travel: No Recent Hopitalizations: No Past Medical History Surgeries: Yes (BONE GRAFT TO RT WRIST FROM HIP) Orthopedic Respiratory: Yes COPD Cardiac: Yes Hypertension Neurological: Yes (SUSPECTED PERIPHERAL NEUROPATHY) Reproductive Disorders: No Genitourinary: No Gastrointestinal: Yes (CHRONIC GI COMPLAINTS) Musculoskeletal: Yes (CHRONIC GENERALIZED PAIN COMPLAINTS, ESPECIALLY TO LEGS AND FEET) Endocrine: Yes (OBESE; EXTERME NON-COMPLIANCE IN ALL ASPECTS OF CARE) Diabetes, Insulin dep HEENT: No Cancer: No Psychosocial: No Integumentary: No Blood Disorders: No Physical Exam Vital Signs Capillary Refill : Height, Weight, BMI Height: 5'9.00" Weight: 180lbs. oz. 81.753896jb; BMI Method:Stated General Appearance: Other (HOSTILE TO STAFF, AGITATED, DOES NOT MAKE EYE CONTACT. EXAM NOT COMPLETE DUE TO PT LEAVING AMA ) Progress/Results/Core Measures Suspected Sepsis SIRS Temperature: Pulse: Respiratory Rate: Blood Pressure / Mean: Results/Orders My Orders Orders - LANCE MARTINI DO Accucheck Stat ONCE (03/14/19 18:45) Monitor-Rhythm Ecg Trace Only (03/14/19 18:45) Ed Iv/Invasive Line Start (03/14/19 18:45) Ns Iv 1000 Ml (Sodium Chloride 0.9%) (03/14/19 18:45) Arterial Blood Gas (03/14/19 18:45) Cbc With Automated Diff (03/14/19 18:45) Comprehensive Metabolic Panel (03/14/19 18:45) Drug Screen Stat (Urine) (03/14/19 18:45) Magnesium (03/14/19 18:45) Protime With Inr (03/14/19 18:45) Partial Thromboplastin Time (03/14/19 18:45) Ua Culture If Indicated (03/14/19 18:45) Vital Signs/I&O Capillary Refill : Point of Care Testing Finger Stick Blood Glucose: 486 Blood Glucose Action Taken: doctor notified. Progress Note : Progress Note I ADVISED PT I WOULD NOT BE REFILLING ANY OF HIS MEDICATIONS, HE NEEDED TO FOLLOW UP WITH [facility] OR LOCAL DR OF CHOICE FOR ROUTINE MEDICAL CARE AND MEDICATION REFILLS ADVISED HIM THAT HIS BLOOD SUGAR WAS ELEVATED AND WE WOULD EVALUATE HIM FOR THAT PT PROMPTLY RIPPED OFF BP CUFF BEFORE MACHINE WAS FINISHED READING, AND RIPPED OFF MONITORING DEVICES AND STORMED OUT OF ER, STATING "THERE'S NO POINT IN ME STAYING HERE THEN" PT LEFT BEFORE AMA PAPERS COULD BE SIGNED. Departure Impression Primary Impression: Left against medical advice Additional Impression: Uncontrolled diabetes mellitus Disposition: 07 AGAINST MEDICAL ADVICE Condition: Against Medical Advice Departure-Patient Inst. Referrals: [facility] (PCP/Family) Primary Care Physician LANCE MARTINI DO Mar 14, 2019 18:54
[2019-03-15] MEDS ORDERED: TRAM-42 PO (16:41)
[2019-03-15] MEDS ORDERED: METO5TAB75 PO (16:41)
== END 2019-03-14 18:54 | disposition left against medical advice (07) ==
LOC: EDUNIT# 18:35 → ER 18:36
DX: E11.9 Type 2 diabetes mellitus without complications (principal); F15.10 Other stimulant abuse, uncomplicated; J44.9 Chronic obstructive pulmonary disease, unspecified; I10 Essential (primary) hypertension; Z91.14 Patient's other noncompliance with medication regimen; Z87.891 Personal history of nicotine dependence; Z79.4 Long term (current) use of insulin; Z88.5 Allergy status to narcotic agent; Z88.6 Allergy status to analgesic agent; Z88.8 Allergy status to other drugs, medicaments and biological substances
CPT/HCPCS: 82962

== ENCOUNTER 2019-03-15 13:39 | Emergency (ER) | payer MEDICAID ==
[~2019-03-15] VITALS: Ht 175.3 cm; Wt 108.9 kg
[2019-03-15] MEDS ORDERED: METOCLOPRAMIDE INJ 10 MG/2 ML (REGLAN) IVP ONE (14:30)
[2019-03-15 14:33] LABS: BILIRUBIN,URINE NEGATIVE (NEGATIVE); CLARITY,URINE CLEAR; COLOR,URINE YELLOW; GLUCOSE, URINE (UA) 4+ (NEGATIVE); KETONES,URINE NEGATIVE (NEGATIVE); LEUKOCYTE ESTERASE ,URINE NEGATIVE (NEGATIVE); NITRITE,URINE NEGATIVE (NEGATIVE); PH,URINE 5 (5-9); PROTEIN,URINE 2+ (NEGATIVE); UROBILINOGEN,URINE NORMAL (NORMAL)
[2019-03-15 14:33] LABS: BASOPHILS # (AUTO) 0.1 10^3/uL (0.0-0.1); BASOPHILS % (AUTO) 1 % (0-10); EOSINOPHILS # (AUTO) 0.3 10^3/uL (0.0-0.3); EOSINOPHILS % (AUTO) 4 % (0-10); HEMATOCRIT 42 % (40-54); LYMPHOCYTES # (AUTO) 1.3 X 10^3 (1.0-4.0); LYMPHOCYTES % (AUTO) 17 % (12-44); MEAN CORPUSCULAR HEMOGLOBIN 27 PG (25-34); MEAN CORPUSCULAR HGB CONC 33 G/DL (32-36); MEAN CORPUSCULAR VOLUME 81 FL (80-99); MEAN PLATELET VOLUME 10.6 FL (7.4-10.4); MONOCYTES # (AUTO) 0.4 X 10^3 (0.0-1.0); MONOCYTES % (AUTO) 5 % (0-12); NEUTROPHILS # (AUTO) 5.7 X 10^3 (1.8-7.8); NEUTROPHILS % (AUTO) 73 % (42-75); PLATELET COUNT 263 10^3/uL (130-400); RED CELL DISTRIBUTION WIDTH 14.7 % (10.0-14.5); WHITE BLOOD COUNT 7.8 10^3/uL (4.3-11.0)
[2019-03-15 14:46] LABS: AMPHETAMINE SCREEN, URINE NEGATIVE (NEGATIVE); BARBITURATE SCREEN URINE NEGATIVE (NEGATIVE); BENZODIAZEPINES SCREEN URINE NEGATIVE (NEGATIVE); CANNABINOID SCREEN, URINE NEGATIVE (NEGATIVE); COCAINE SCREEN URINE NEGATIVE (NEGATIVE); METHADONE STAT NEGATIVE (NEGATIVE); METHAMPHETAMINE SCREEN URINE S NEGATIVE (NEGATIVE); OPIATE SCREEN URINE NEGATIVE (NEGATIVE); OXYCODONE STAT NEGATIVE (NEGATIVE); PROPOXYPHENE STAT NEGATIVE (NEGATIVE); TRICYCLIC ANTIDEPRESSANTS SCRE NEGATIVE (NEGATIVE)
[2019-03-15 14:49] LABS: BACTERIA,URINE NEGATIVE /HPF; RBC,URINE RARE /HPF; SQUAMOUS EPITHELIAL CELL,UR RARE /HPF
[2019-03-15 14:54] LABS: ALANINE AMINOTRANSFERASE 52 U/L (0-55); ALBUMIN 3.5 GM/DL (3.2-4.5); ALKALINE PHOSPHATASE 138 U/L (40-136); BILIRUBIN,TOTAL 0.3 MG/DL (0.1-1.0); BUN/CREATININE RATIO 6; CALCIUM 9.2 MG/DL (8.5-10.1); CARBON DIOXIDE 19 MMOL/L (21-32); CHLORIDE 99 MMOL/L (98-107); GFR ESTIMATED 56; LIPASE 21 U/L (8-78); POTASSIUM 4.2 MMOL/L (3.6-5.0); SODIUM 132 MMOL/L (135-145); TOTAL PROTEIN 7.1 GM/DL (6.4-8.2)
[2019-03-15 14:58] LABS: GLUCOSE 597 MG/DL (70-105)
[2019-03-15] MEDS ORDERED: NS IV 1000 ML 1,000 ML IV ONE (15:19)
[2019-03-15] MEDS ORDERED: inSUlin (REGULAR) HUMAN 1 UNIT/0.01 ML (CHARGE PER UNIT) IV ONE (15:30)
[2019-03-15] MEDS ORDERED: METO5TAB75 PO (16:41)
[2019-03-15] MEDS ORDERED: TRAM-42 PO (16:41)
--- NOTE | 2019-03-15 16:41 | ED General ---
General Chief Complaint: Abdominal/GI Problems Stated Complaint: ABD PAIN Nursing Triage Note: PT STATES ABD PAIN AND "ALL I WANT IS REGALAN FOR MY STOMACH AND TRAMADOL FOR THE PAIN." Nursing Sepsis Screen: No Definite Risk Source of Information: Patient, Old Records Exam Limitations: No Limitations History of Present Illness Date Seen by Provider: Mar 15, 2019 Time Seen by Provider: 14:09 Initial Comments This 4-year-old gentleman presents to the emergency room with complaints of chronic uncontrolled abdominal pain and chronic lower extremity pain. He is out of his Ultram and Reglan which previously controlled the symptoms. Patient initially claimed that his prior provider, Rupal Whittington, at [facility] stopped seeing him. After further pressing the reasons for this, he admits that he stopped goi ng to [facility] because his provider chose not to continue filling Ultram. Patient states he has tried gabapentin in the past without improvement. He is hoping to establish care at the [facility] [address] but has had difficulty with the paperwork. He has significant hypertension but admits that he has not been taking his blood pressure medications as he should although he has them at home. He also admits to being noncompliant with insulin. He skips at least one dose of injections per day and has stopped metformin. When asked about his pain, he states everything hurts. Allergies and Home Medications Allergies Coded Allergies: hydrocodone (Unverified Allergy, Unknown, hives, 02/08/19) aspirin (Unverified Adverse Reaction, Unknown, angioedema, 02/08/19) lisinopril (Unverified Adverse Reaction, Unknown, angioedema, 02/08/19) Home Medications Amlodipine Besylate 5 Mg Tablet, 5 MG PO DAILY, (Reported) Epinephrine 0.3 Mg/0.3/Syringe Pen.injctr, 0.3 MG IM PRN, (Reported) prn anaphylaxis Furosemide 20 Mg Tablet, 1 TAB PO each a.m. Prescribed by: MIKE CASTILLO on 12/24/18 0844 Glyburide 5 Mg Tablet, 4 MG PO BIDAC, (Reported) Insulin Aspart 300 Units/3 Ml Solution, 10 UNITS SQ AC Prescribed by: KARON CAMERON on 02/28/192204 Insulin Detemir 100 Unit/1 Ml Insuln.pen, 20 UNIT SQ HS Prescribed by: KARON CAMERON on 02/28/192158 Metformin Hcl 500 Mg Tablet, 2 EACH PO BID, (Reported) Metoclopramide HCl 10 Mg Tablet, 10 MG PO TID Prescribed by: KARON CAMERON on 02/24/191925 Metoclopramide HCl 5 Mg Tablet, 5 MG PO TID PRN for NAUSEA/VOMITING Prescribed by: EVELIO MCINTOSH on 03/15/19 164 Omeprazole 40 Mg Capsule.dr, 40 MG PO DAILY Prescribed by: KARON CAMERON on 02/24/191925 Potassium Chloride 20 Meq Tab.er.prt, 1 TAB PO ddaily Prescribed by: MIKE CASTILLO on 12/24/18 0844 Tramadol HCl 50 Mg Tablet, 50 MG PO Q6H PRN for PAIN-MODERATE Prescribed by: KARON CAMERON on 02/08/19 1500 Tramadol HCl 50 Mg Tablet, 50 MG PO Q6H PRN for PAIN Prescribed by: KARON CAMERON on 02/24/191925 Tramadol HCl 50 Mg Tablet, 50 MG PO QID Prescribed by: EVELIO MCINTOSH on 03/15/19 164 Patient Home Medication List Home Medication List Reviewed: Yes Review of Systems Review of Systems Constitutional: no symptoms reported EENTM: no symptoms reported Respiratory: no symptoms reported Cardiovascular: see HPI Gastrointestinal: see HPI Genitourinary: no symptoms reported Musculoskeletal: see HPI Skin: no symptoms reported Psychiatric/Neurological: See HPI Hematologic/Lymphatic: No Symptoms Reported Past Fhsqxbk-Zugauh-Dxuzms Hx Past Med/Social Hx: Reviewed Nursing Past Med/Soc Hx Patient Social History Alcohol Use: Denies Use Recreational Drug Use: Yes (in the past) 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 Smoking Status: Former Smoker Type Used: Cigarettes Former Smoker, Quit: Feb 21, 2004 Recent Foreign Travel: No Contact w/Someone Who Travel: No Recent Infectious Disease Expo: No Recent Hopitalizations: No Physical Abuse: No Sexual Abuse: No Mistreated: No Fear: No Past Medical History Surgeries: Yes (BONE GRAFT TO RT WRIST FROM HIP) Orthopedic Respiratory: Yes COPD Cardiac: Yes Hypertension Neurological: Yes (SUSPECTED PERIPHERAL NEUROPATHY) Reproductive Disorders: No Genitourinary: No Gastrointestinal: Yes (CHRONIC GI COMPLAINTS) Musculoskeletal: Yes (CHRONIC GENERALIZED PAIN COMPLAINTS, ESPECIALLY TO LEGS AND FEET) Endocrine: Yes (OBESE; EXTERME NON-COMPLIANCE IN ALL ASPECTS OF CARE) Diabetes, Insulin dep HEENT: No Cancer: No Psychosocial: No Integumentary: No Blood Disorders: No Physical Exam Vital Signs Vital Signs - First Documented 03/15/19 14:04 Temp 98.5 Pulse 76 Resp 20 B/P (MAP) 200/99 (132) Pulse Ox 96 O2 Delivery Room Air Capillary Refill : Less Than 3 Seconds Height, Weight, BMI Height: 5'9.00" Weight: 240lbs. oz. 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 Norm as Tested, Other (irritable mood) Skin: Normal Color, Warm/Dry Progress/Results/Core Measures Suspected Sepsis Recent Fever Within 48 Hours: No Infection Criteria Present: None New/Unexplained Altered Menta: No Sepsis Screen: No Definite Risk SIRS Temperature:98.5 Pulse: 76 Respiratory Rate: 20 Laboratory Tests 03/15/19 14:18: White Blood Count 7.8 Blood Pressure 200 /99 Mean: 132 Laboratory Tests 03/15/19 14:18: Creatinine 1.30, Platelet Count 263, Total Bilirubin 0.3 Results/Orders Lab Results Laboratory Tests Test 03/15/19 14:18 03/15/19 14:23 03/15/19 16:09 Range/Units White Blood Count 7.8 4.3-11.0 10^3/uL Red Blood Count 5.20 4.35-5.85 10^6/uL Hemoglobin 14.0 13.3-17.7 G/DL Hematocrit 42 40-54 % Mean Corpuscular Volume 81 80-99 FL Mean Corpuscular Hemoglobin 27 25-34 PG Mean Corpuscular Hemoglobin Concent 33 32-36 G/DL Red Cell Distribution Width 14.7 H 10.0-14.5 % Platelet Count 263 130-400 10^3/uL Mean Platelet Volume 10.6 H 7.4-10.4 FL Neutrophils (%) (Auto) 73 42-75 % Lymphocytes (%) (Auto) 17 12-44 % Monocytes (%) (Auto) 5 0-12 % Eosinophils (%) (Auto) 4 0-10 % Basophils (%) (Auto) 1 0-10 % Neutrophils # (Auto) 5.7 1.8-7.8 X 10^3 Lymphocytes # (Auto) 1.3 1.0-4.0 X 10^3 Monocytes # (Auto) 0.4 0.0-1.0 X 10^3 Eosinophils # (Auto) 0.3 0.0-0.3 10^3/uL Basophils # (Auto) 0.1 0.0-0.1 10^3/uL Sodium Level 132 L 135-145 MMOL/L Potassium Level 4.2 3.6-5.0 MMOL/L Chloride Level 99 98-107 MMOL/L Carbon Dioxide Level 19 L 21-32 MMOL/L Anion Gap 14 5-14 MMOL/L Blood Urea Nitrogen 8 7-18 MG/DL Creatinine 1.30 0.60-1.30 MG/DL Estimat Glomerular Filtration Rate 56 BUN/Creatinine Ratio 6 Glucose Level 597 *H 70-105 MG/DL Calcium Level 9.2 8.5-10.1 MG/DL Corrected Calcium 9.6 8.5-10.1 MG/DL Total Bilirubin 0.3 0.1-1.0 MG/DL Aspartate Amino Transf (AST/SGOT) 38 H 5-34 U/L Alanine Aminotransferase (ALT/SGPT) 52 0-55 U/L Alkaline Phosphatase 138 H 40-136 U/L C-Reactive Protein High Sensitivity 0.41 0.00-0.50 MG/DL Total Protein 7.1 6.4-8.2 GM/DL Albumin 3.5 3.2-4.5 GM/DL Lipase 21 8-78 U/L Serum Alcohol < 10 <10 MG/DL Urine Color YELLOW Urine Clarity CLEAR Urine pH 5 5-9 Urine Specific Duff 1.020 1.016-1.022 Urine Protein 2+ H NEGATIVE Urine Glucose (UA) 4+ H NEGATIVE Urine Ketones NEGATIVE NEGATIVE Urine Nitrite NEGATIVE NEGATIVE Urine Bilirubin NEGATIVE NEGATIVE Urine Urobilinogen NORMAL NORMAL MG/DL Urine Leukocyte Esterase NEGATIVE NEGATIVE Urine RBC (Auto) 1+ H NEGATIVE Urine RBC RARE /HPF Urine WBC NONE /HPF Urine Squamous Epithelial Cells RARE /HPF Urine Crystals NONE /LPF Urine Bacteria NEGATIVE /HPF Urine Casts NONE /LPF Urine Mucus NEGATIVE /LPF Urine Culture Indicated NO Urine Opiates Screen NEGATIVE NEGATIVE Urine Oxycodone Screen NEGATIVE NEGATIVE Urine Methadone Screen NEGATIVE NEGATIVE Urine Propoxyphene Screen NEGATIVE NEGATIVE Urine Barbiturates Screen NEGATIVE NEGATIVE Ur Tricyclic Antidepressants Screen NEGATIVE NEGATIVE Urine Phencyclidine Screen NEGATIVE NEGATIVE Urine Amphetamines Screen NEGATIVE NEGATIVE Urine Methamphetamines Screen NEGATIVE NEGATIVE Urine Benzodiazepines Screen NEGATIVE NEGATIVE Urine Cocaine Screen NEGATIVE NEGATIVE Urine Cannabinoids Screen NEGATIVE NEGATIVE Glucometer 460 *H 70-110 MG/DL My Orders Orders - EVELIO MATHEWS MD Alcohol (03/15/19 14:16) Cbc With Automated Diff (03/15/19 14:16) Comprehensive Metabolic Panel (03/15/19 14:16) Lipase (03/15/19 14:16) Ua Culture If Indicated (03/15/19 14:16) Hs C Reactive Protein (03/15/19 14:16) Ed Iv/Invasive Line Start (03/15/19 14:16) Metoclopramide Injection (Reglan Injecti (03/15/19 14:30) Drug Screen Stat (Urine) (03/15/19 14:16) Ed Iv/Invasive Line Start (03/15/19 15:19) Ns Iv 1000 Ml (Sodium Chloride 0.9%) (03/15/19 15:19) Insulin (Regular) Human (Humulin R (Per (03/15/19 15:30) Accucheck Stat ONCE (03/15/19 15:20) Tramadol Tablet (Ultram Tablet) (03/15/19 15:30) Medications Given in ED Current Medications Medications Dose Ordered Sig/Zack Route Start Time Stop Time Status Last Admin Dose Admin Insulin Human Regular 5 unit ONCE ONCE IV 03/15/19 15:30 03/15/19 15:31 DC 03/15/19 15:38 5 UNIT Metoclopramide HCl 5 mg ONCE ONCE IVP 03/15/19 14:30 03/15/19 14:31 DC 03/15/19 14:30 5 MG Sodium Chloride 1,000 ml @ 0 mls/hr Q0M ONCE IV 03/15/19 15:19 03/15/19 15:20 DC 03/15/19 15:37 1,000 MLS/HR Tramadol HCl 50 mg ONCE ONCE PO 03/15/19 15:30 03/15/19 15:31 DC 03/15/19 15:37 50 MG Vital Signs/I&O 03/15/19 03/15/19 03/15/19 14:04 15:37 17:02 Temp 98.5 98.5 98.5 Pulse 76 80 Resp 20 20 B/P (MAP) 200/99 (132) 172/95 (120) Pulse Ox 96 96 O2 Delivery Room Air Room Air Capillary Refill : Less Than 3 Seconds Blood Pressure Mean: 132 Progress Note : Progress Note Patient underwent workup. He was hydrated and insulin was given by IV route. Blood sugar was trending down. Pain was treated with Ultram and nausea/GI dysfunction was treated with Reglan. He had some improvement in symptoms. I reviewed the roles of ER providers and primary care providers with the patient. I advised him to seek care for his chronic conditions from a primary care clinic. He asserts that he is in transition from one clinic to another. U ltimately, patient was discharged home because he has the medications needed there. He has had medications and just elects not to use them. Noncompliance is his primary issue. Departure Impression Primary Impression: Chronic abdominal pain Additional Impressions: Neuropathy Diabetes type 2, uncontrolled Qualified Codes: E11.65 - Type 2 diabetes mellitus with hyperglycemia Hypertension Qualified Codes: I10 - Essential (primary) hypertension Noncompliance Disposition: 01 HOME, SELF-CARE Condition: Improved Departure-Patient Inst. Decision time for Depature: 16:38 Referrals: [facility] (PCP/Family) Primary Care Physician Patient Instructions: Diabetes Type 2 (DC), High Blood Pressure in Adults Add. Discharge Instructions: Follow-up with a primary care provider soon as possible. Continue with maintenance of your chronic conditions and management of your medications with the [facility] until you can establish elsewhere. Resume your previously prescribed blood pressure medication. Resume your previously prescribed insulin doses. Resume your previously prescribed metformin. Drink plenty of water and eat a low carbohydrate, low sugar diet. Return to care if symptoms are worsening. All discharge instructions reviewed with patient and/or family. Voiced understanding. Scripts Tramadol HCl (Ultram) 50 Mg Tablet 50 MG PO QID, #10 TAB Prov: EVELIO MATHEWS MD 03/15/19 Metoclopramide HCl (Reglan) 5 Mg Tablet 5 MG PO TID PRN for NAUSEA/VOMITING, #10 TAB Prov: EVELIO MATHEWS MD 03/15/19 EVELIO MATHEWS MD Mar 15, 2019 16:41
[2019-03-15 17:02] VITALS: BP 172/95
== END 2019-03-15 17:02 | disposition home or self-care (01) ==
LOC: EDUNIT# 13:39 → ER 13:40
DX: R10.84 Generalized abdominal pain (principal); G89.29 Other chronic pain; E11.40 Type 2 diabetes mellitus with diabetic neuropathy, unspecified; I10 Essential (primary) hypertension; F15.10 Other stimulant abuse, uncomplicated; J44.9 Chronic obstructive pulmonary disease, unspecified; Z91.14 Patient's other noncompliance with medication regimen; Z79.4 Long term (current) use of insulin; Z88.5 Allergy status to narcotic agent; Z88.6 Allergy status to analgesic agent; Z88.8 Allergy status to other drugs, medicaments and biological substances; Z87.891 Personal history of nicotine dependence
CPT/HCPCS: 36415; 80053; 80306; 80320; 81000; 82962; 83690; 85025; 86141; 96361; 96374; 96375

== ENCOUNTER → 2019-04-11 | Outpatient (CLI) | payer MEDICAID ==
[~2019-04-11] MED LIST changes: +METO5TAB75 PO
--- NOTE | 2019-04-11 12:14 | Diagnostic Imaging Report ---
PROCEDURE: US abdomen complete. TECHNIQUE: Multiple Real-time grayscale images were obtained over the abdomen in various projections. INDICATION: Right upper quadrant pain. COMPARISON: No comparison is available. FINDINGS: The pancreas is not well seen. The liver is steatotic. The echotexture is normal. No surface nodularity is seen. The gallbladder is normal. No stones are seen. The wall is normal in thickness measuring 3 mm. The right kidney is normal in size and echogenicity measuring 13 cm without hydronephrosis, stones, or focal lesions. The spleen is normal in size and echogenicity. The left kidney is normal with a maximal size of 12.9 cm. No stones or focal lesions are seen. No hydronephrosis. The visualized portions of the aorta and inferior vena cava are normal but are not well seen due to the presence of bowel gas. The common bile duct is also obscured by bowel gas but no biliary ductal dilation is seen. There is no ascites. IMPRESSION: No abnormality is identified on the abdominal ultrasound. Dictated by: Dictated on workstation # [id number]
== END ==
LOC: RAD 07:19
PROVIDERS: ATTEND Pediatrics
DX: R10.11 Right upper quadrant pain (principal)
CPT/HCPCS: 76700

== ENCOUNTER 2019-04-13 15:05 | Emergency (ER) | payer MEDICAID ==
[~2019-04-13] VITALS: Ht 175.3 cm; Wt 113.9 kg
--- NOTE | 2019-04-13 15:49 | ED Abdominal Pain ---
General Chief Complaint: Abdominal/GI Problems Stated Complaint: STOMACH PAIN Nursing Triage Note: PATIENT STATES HE IS HERE FOR STOMACH PAIN THAT HAS BEEN GOING ON 8 MONTHS. HE STATES THAT DR TOBAR HAS ALREADY WORKED HIM UP FOR THIS BUT SAID IT WAS NOTHING. HIS PAIN PERSISTS. COMPLAINS OF DIARRHEA, DENIES N/V. HE STATES THAT METH IS THE ONLY THING THAT MAKES IT FEEL BETTER. Sepsis Screen: No Definite Risk Source of Information: Patient Exam Limitations: No Limitations History of Present Illness Date Seen by Provider: Apr 13, 2019 Time Seen by Provider: 15:47 Initial Comments To ER with reports of right sided abdominal pain ongoing for 8 months no different today. No nausea vomiting diarrhea or dysuria. The pain is always there and nothing makes it worse. The only thing that makes it better is injecting methamphetamine. Timing/Duration: Other Severity/Quality: Moderate Radiation: No Radiation Activities at Onset: None Associated Symptoms: Denies Symptoms Allergies and Home Medications Allergies Coded Allergies: hydrocodone (Unverified Allergy, Unknown, hives, 02/08/19) aspirin (Unverified Adverse Reaction, Unknown, angioedema, 02/08/19) lisinopril (Unverified Adverse Reaction, Unknown, angioedema, 02/08/19) Home Medications Amlodipine Besylate 5 Mg Tablet, 5 MG PO DAILY, (Reported) Epinephrine 0.3 Mg/0.3/Syringe Pen.injctr, 0.3 MG IM PRN, (Reported) prn anaphylaxis Furosemide 20 Mg Tablet, 1 TAB PO each a.m. Prescribed by: MIKE CASTILLO on 12/24/18 0844 Glyburide 5 Mg Tablet, 4 MG PO BIDAC, (Reported) Insulin Aspart 300 Units/3 Ml Solution, 10 UNITS SQ AC Prescribed by: KARON CAMERON on 02/28/192204 Insulin Detemir 100 Unit/1 Ml Insuln.pen, 20 UNIT SQ HS Prescribed by: KARON CAMERON on 02/28/19 215 Metformin Hcl 500 Mg Tablet, 2 EACH PO BID, (Reported) Metoclopramide HCl 10 Mg Tablet, 10 MG PO TID Prescribed by: KARON CAMERON on 02/24/191925 Metoclopramide HCl 5 Mg Tablet, 5 MG PO TID PRN for NAUSEA/VOMITING Prescribed by: EVELIO MCINTOSH on 03/15/19 1641 Omeprazole 40 Mg Capsule., 40 MG PO DAILY Prescribed by: KARON CAMERON on 02/24/191925 Potassium Chloride 20 Meq Tab.er.prt, 1 TAB PO ddaily Prescribed by: MIKE CASTILLO on 12/24/18 0844 Tramadol HCl 50 Mg Tablet, 50 MG PO Q6H PRN for PAIN-MODERATE Prescribed by: KARON CAMERON on 02/08/19 1500 Tramadol HCl 50 Mg Tablet, 50 MG PO Q6H PRN for PAIN Prescribed by: KARON CAMERON on 02/24/19 192 Tramadol HCl 50 Mg Tablet, 50 MG PO QID Prescribed by: EVELIO MCINTOSH on 03/15/19 1641 Patient Home Medication List Home Medication List Reviewed: Yes Review of Systems Review of Systems Constitutional: see HPI EENTM: No Symptoms Reported Respiratory: No Symptoms Reported Cardiovascular: See HPI Gastrointestinal: See HPI, Abdominal Pain Genitourinary: No Symptoms Reported Musculoskeletal: no symptoms reported Skin: no symptoms reported Psychiatric/Neurological: No Symptoms Reported Endocrine: No Symptoms Reported Past Haihynm-Skgdyu-Mixnak Hx Patient Social History Alcohol Use: Denies Use Recreational Drug Use: Yes (in the past) 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 Smoking Status: Former Smoker Type Used: Cigarettes Former Smoker, Quit: Feb 21, 2004 2nd Hand Smoke Exposure: No Recent Foreign Travel: No Contact w/Someone Who Travel: No Recent Infectious Disease Expo: No Recent Hopitalizations: No Past Medical History Surgeries: Yes (BONE GRAFT TO RT WRIST FROM HIP) Orthopedic Respiratory: Yes COPD Cardiac: Yes Hypertension Neurological: Yes (SUSPECTED PERIPHERAL NEUROPATHY) Reproductive Disorders: No Genitourinary: No Gastrointestinal: Yes (CHRONIC GI COMPLAINTS) Musculoskeletal: Yes (CHRONIC GENERALIZED PAIN COMPLAINTS, ESPECIALLY TO LEGS AND FEET) Endocrine: Yes (OBESE; EXTERME NON-COMPLIANCE IN ALL ASPECTS OF CARE) Diabetes, Insulin dep HEENT: No Cancer: No Psychosocial: No Integumentary: No Blood Disorders: No Physical Exam Vital Signs Vital Signs - First Documented 04/13/19 15:12 Temp 96.4 Pulse 75 Resp 22 B/P (MAP) 158/93 (114) Pulse Ox 96 Capillary Refill : Less Than 3 Seconds Height/Weight/BMI Height: 5'9.00" Weight: 251lbs. 0oz. 113.444429yt; BMI Method:Actual General Appearance: WD/WN, no apparent distress, obese HEENT: PERRL/EOMI, normal ENT inspection Respiratory: no respiratory distress, no accessory muscle use Cardiovascular: regular rate, rhythm Gastrointestinal: normal bowel sounds, non tender, soft Extremities: normal range of motion, non-tender Neurologic/Psychiatric: alert, normal mood/affect, oriented x 3 Skin: normal color, warm/dry Progress/Results/Core Measures Results/Orders Lab Results Laboratory Tests Test 04/13/19 15:37 04/13/19 15:45 Range/Units Urine Color YELLOW Urine Clarity CLEAR Urine pH 7 5-9 Urine Specific Williams 1.010 L 1.016-1.022 Urine Protein 3+ H NEGATIVE Urine Glucose (UA) 4+ H NEGATIVE Urine Ketones NEGATIVE NEGATIVE Urine Nitrite NEGATIVE NEGATIVE Urine Bilirubin NEGATIVE NEGATIVE Urine Urobilinogen 1 NORMAL MG/DL Urine Leukocyte Esterase NEGATIVE NEGATIVE Urine RBC (Auto) 1+ H NEGATIVE Urine RBC NONE /HPF Urine WBC NONE /HPF Urine Squamous Epithelial Cells 0-2 /HPF Urine Crystals NONE /LPF Urine Bacteria NEGATIVE /HPF Urine Casts NONE /LPF Urine Mucus NEGATIVE /LPF Urine Culture Indicated NO Urine Opiates Screen POSITIVE H NEGATIVE Urine Oxycodone Screen NEGATIVE NEGATIVE Urine Methadone Screen NEGATIVE NEGATIVE Urine Propoxyphene Screen NEGATIVE NEGATIVE Urine Barbiturates Screen NEGATIVE NEGATIVE Ur Tricyclic Antidepressants Screen NEGATIVE NEGATIVE Urine Phencyclidine Screen NEGATIVE NEGATIVE Urine Amphetamines Screen POSITIVE H NEGATIVE Urine Methamphetamines Screen POSITIVE H NEGATIVE Urine Benzodiazepines Screen NEGATIVE NEGATIVE Urine Cocaine Screen NEGATIVE NEGATIVE Urine Cannabinoids Screen NEGATIVE NEGATIVE White Blood Count 10.9 4.3-11.0 10^3/uL Red Blood Count 5.46 4.35-5.85 10^6/uL Hemoglobin 14.9 13.3-17.7 G/DL Hematocrit 43 40-54 % Mean Corpuscular Volume 80 80-99 FL Mean Corpuscular Hemoglobin 27 25-34 PG Mean Corpuscular Hemoglobin Concent 34 32-36 G/DL Red Cell Distribution Width 14.7 H 10.0-14.5 % Platelet Count 301 130-400 10^3/uL Mean Platelet Volume 10.4 7.4-10.4 FL Neutrophils (%) (Auto) 75 42-75 % Lymphocytes (%) (Auto) 14 12-44 % Monocytes (%) (Auto) 6 0-12 % Eosinophils (%) (Auto) 4 0-10 % Basophils (%) (Auto) 1 0-10 % Neutrophils # (Auto) 8.2 H 1.8-7.8 X 10^3 Lymphocytes # (Auto) 1.6 1.0-4.0 X 10^3 Monocytes # (Auto) 0.6 0.0-1.0 X 10^3 Eosinophils # (Auto) 0.5 H 0.0-0.3 10^3/uL Basophils # (Auto) 0.1 0.0-0.1 10^3/uL Sodium Level 138 135-145 MMOL/L Potassium Level 4.1 3.6-5.0 MMOL/L Chloride Level 101 98-107 MMOL/L Carbon Dioxide Level 26 21-32 MMOL/L Anion Gap 11 5-14 MMOL/L Blood Urea Nitrogen 10 7-18 MG/DL Creatinine 0.95 0.60-1.30 MG/DL Estimat Glomerular Filtration Rate > 60 BUN/Creatinine Ratio 11 Glucose Level 197 H 70-105 MG/DL Calcium Level 9.3 8.5-10.1 MG/DL Corrected Calcium 9.1 8.5-10.1 MG/DL Total Bilirubin 0.6 0.1-1.0 MG/DL Aspartate Amino Transf (AST/SGOT) 31 5-34 U/L Alanine Aminotransferase (ALT/SGPT) 46 0-55 U/L Alkaline Phosphatase 119 40-136 U/L Total Protein 8.4 H 6.4-8.2 GM/DL Albumin 4.2 3.2-4.5 GM/DL Lipase 12 8-78 U/L My Orders Orders - KARON CAMERON SOFTWARE Q[employer] SYSTEM SPECIALIST Cbc With Automated Diff (04/13/19 15:23) Comprehensive Metabolic Panel (04/13/19 15:23) Ua Culture If Indicated (04/13/19 15:23) Drug Screen Stat (Urine) (04/13/19 15:23) Lipase (04/13/19 15:23) Ed Iv/Invasive Line Start (04/13/19 15:23) Vital Signs/I&O 04/13/19 15:12 Temp 96.4 Pulse 75 Resp 22 B/P (MAP) 158/93 (114) Pulse Ox 96 Blood Pressure Mean: 114 Departure Impression Primary Impression: Chronic abdominal pain Disposition: 01 HOME, SELF-CARE Condition: Stable Departure-Patient Inst. Decision time for Depature: 16:21 Referrals: [facility] D DO FOX, JOHN M MD (PCP/Family) Primary Care Physician HUSAM JONES MD Patient Instructions: Chronic Pain Add. Discharge Instructions: 1. Call one of the surgeons listed to make an appointment to be seen All discharge instructions reviewed with patient and/or family. Voiced under standing. KARON CAMERON SOFTWARE QA SYSTEM SPECIALIST Apr 13, 2019 15:48
[2019-04-13 15:54] LABS: BILIRUBIN,URINE NEGATIVE (NEGATIVE); CLARITY,URINE CLEAR; COLOR,URINE YELLOW; GLUCOSE, URINE (UA) 4+ (NEGATIVE); KETONES,URINE NEGATIVE (NEGATIVE); LEUKOCYTE ESTERASE ,URINE NEGATIVE (NEGATIVE); NITRITE,URINE NEGATIVE (NEGATIVE); PH,URINE 7 (5-9); PROTEIN,URINE 3+ (NEGATIVE); UROBILINOGEN,URINE 1 MG/DL (NORMAL)
[2019-04-13 15:59] LABS: BASOPHILS # (AUTO) 0.1 10^3/uL (0.0-0.1); BASOPHILS % (AUTO) 1 % (0-10); EOSINOPHILS # (AUTO) 0.5 10^3/uL (0.0-0.3); EOSINOPHILS % (AUTO) 4 % (0-10); HEMATOCRIT 43 % (40-54); HEMOGLOBIN 14.9 G/DL (13.3-17.7); LYMPHOCYTES # (AUTO) 1.6 X 10^3 (1.0-4.0); LYMPHOCYTES % (AUTO) 14 % (12-44); MEAN CORPUSCULAR HEMOGLOBIN 27 PG (25-34); MEAN CORPUSCULAR HGB CONC 34 G/DL (32-36); MEAN CORPUSCULAR VOLUME 80 FL (80-99); MEAN PLATELET VOLUME 10.4 FL (7.4-10.4); MONOCYTES # (AUTO) 0.6 X 10^3 (0.0-1.0); MONOCYTES % (AUTO) 6 % (0-12); NEUTROPHILS # (AUTO) 8.2 X 10^3 (1.8-7.8); NEUTROPHILS % (AUTO) 75 % (42-75); PLATELET COUNT 301 10^3/uL (130-400); RED CELL DISTRIBUTION WIDTH 14.7 % (10.0-14.5); WHITE BLOOD COUNT 10.9 10^3/uL (4.3-11.0)
[2019-04-13 16:02] LABS: BACTERIA,URINE NEGATIVE /HPF; SQUAMOUS EPITHELIAL CELL,UR 0-2 /HPF
[2019-04-13 16:07] LABS: AMPHETAMINE SCREEN, URINE POSITIVE (NEGATIVE); BARBITURATE SCREEN URINE NEGATIVE (NEGATIVE); BENZODIAZEPINES SCREEN URINE NEGATIVE (NEGATIVE); CANNABINOID SCREEN, URINE NEGATIVE (NEGATIVE); COCAINE SCREEN URINE NEGATIVE (NEGATIVE); METHADONE STAT NEGATIVE (NEGATIVE); METHAMPHETAMINE SCREEN URINE S POSITIVE (NEGATIVE); OPIATE SCREEN URINE POSITIVE (NEGATIVE); OXYCODONE STAT NEGATIVE (NEGATIVE); PROPOXYPHENE STAT NEGATIVE (NEGATIVE); TRICYCLIC ANTIDEPRESSANTS SCRE NEGATIVE (NEGATIVE)
[2019-04-13 16:17] LABS: ALANINE AMINOTRANSFERASE 46 U/L (0-55); ALBUMIN 4.2 GM/DL (3.2-4.5); ALKALINE PHOSPHATASE 119 U/L (40-136); BILIRUBIN,TOTAL 0.6 MG/DL (0.1-1.0); BUN/CREATININE RATIO 11; CALCIUM 9.3 MG/DL (8.5-10.1); CARBON DIOXIDE 26 MMOL/L (21-32); CHLORIDE 101 MMOL/L (98-107); CREATININE SERUM 0.95 MG/DL (0.60-1.30); GFR ESTIMATED > 60; GLUCOSE 197 MG/DL (70-105); LIPASE 12 U/L (8-78); POTASSIUM 4.1 MMOL/L (3.6-5.0); SODIUM 138 MMOL/L (135-145); TOTAL PROTEIN 8.4 GM/DL (6.4-8.2)
[2019-04-13 16:35] VITALS: BP 138/76
== END 2019-04-13 16:35 | disposition home or self-care (01) ==
LOC: EDUNIT# 15:05 → ER 15:07
DX: G89.29 Other chronic pain (principal); R10.9 Unspecified abdominal pain; I10 Essential (primary) hypertension; E11.9 Type 2 diabetes mellitus without complications; J44.9 Chronic obstructive pulmonary disease, unspecified; Z88.5 Allergy status to narcotic agent; Z88.6 Allergy status to analgesic agent; Z88.8 Allergy status to other drugs, medicaments and biological substances; Z79.4 Long term (current) use of insulin; Z87.891 Personal history of nicotine dependence
CPT/HCPCS: 36415; 80053; 80306; 81000; 83690; 85025

== ENCOUNTER 2019-05-17 17:25 | Emergency (ER) | payer MEDICAID ==
[~2019-05-17] VITALS: Ht 175 cm; Wt 118.0 kg
--- NOTE | 2019-05-17 17:51 | ED GI ---
General Chief Complaint: Abdominal/GI Problems Stated Complaint: LOWER BACK/STOMACH PAIN History of Present Illness Date Seen by Provider: May 17, 2019 Time Seen by Provider: 17:45 Initial Comments 58-year-old male presents with generalized abdominal and low back pain. He states his symptoms have not changed, he has been having these intermittently for several months. He was seen here recently and referred to general surgery. He's never had a colonoscopy. He states his blood sugars have been between 2 and 300. He had a normal bowel movement yesterday. He denies any vomiting or nausea. Timing/Duration: Intermittent Severity/Quality: Mild Location: Generalized Abdomen Radiation: Back Associated Symptoms: Back Pain; No Chest Pain, No Diaphoresis, No Headache, No Heartburn, No Nausea/Vomiting, No Rash, No Shortness of Air, No Swelling/Mass in Abdomen, No Syncope, No Weakness Allergies and Home Medications Allergies Coded Allergies: hydrocodone (Unverified Allergy, Unknown, hives, 02/08/19) aspirin (Unverified Adverse Reaction, Unknown, angioedema, 02/08/19) lisinopril (Unverified Adverse Reaction, Unknown, angioedema, 02/08/19) Home Medications Amlodipine Besylate 5 Mg Tablet, 5 MG PO DAILY, (Reported) Epinephrine 0.3 Mg/0.3/Syringe Pen.injctr, 0.3 MG IM PRN, (Reported) prn anaphylaxis Furosemide 20 Mg Tablet, 1 TAB PO each a.m. Prescribed by: MIKE CASTILLO on 12/24/18 0844 Glyburide 5 Mg Tablet, 4 MG PO BIDAC, (Reported) Insulin Aspart 300 Units/3 Ml Solution, 10 UNITS SQ AC Prescribed by: KARON CAMERON on 02/28/192204 Insulin Detemir 100 Unit/1 Ml Insuln.pen, 20 UNIT SQ HS Prescribed by: KARON CAMERON on 02/28/192158 Metformin Hcl 500 Mg Tablet, 2 EACH PO BID, (Reported) Metoclopramide HCl 10 Mg Tablet, 10 MG PO TID Prescribed by: KARON CAMERON on 02/24/191925 Metoclopramide HCl 5 Mg Tablet, 5 MG PO TID PRN for NAUSEA/VOMITING Prescribed by: EVELIO MCINTOSH on 03/15/19 1641 Omeprazole 40 Mg Capsule.dr, 40 MG PO DAILY Prescribed by: KARON CAMERON on 02/24/191925 Potassium Chloride 20 Meq Tab.er.prt, 1 TAB PO ddaily Prescribed by: MIKE CASTILLO on 12/24/18 0844 Tramadol HCl 50 Mg Tablet, 50 MG PO Q6H PRN for PAIN-MODERATE Prescribed by: KARON CAMERON on 02/08/19 1500 Tramadol HCl 50 Mg Tablet, 50 MG PO Q6H PRN for PAIN Prescribed by: KARON CAMERON on 02/24/19 192 Tramadol HCl 50 Mg Tablet, 50 MG PO QID Prescribed by: EVELIO MCINTOSH on 03/15/19 1641 Patient Home Medication List Home Medication List Reviewed: Yes Review of Systems Review of Systems Constitutional: no symptoms reported, see HPI Gastrointestinal: See HPI, Abdominal Pain Musculoskeletal: see HPI, back pain All Other Systems Reviewed Negative Unless Noted: Yes Past Fwgfeyt-Atdtmn-Rmebvj Hx Past Med/Social Hx: Reviewed Nursing Past Med/Soc Hx Patient Social History Alcohol Use: Denies Use Recreational Drug Use: No 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 Smoking Status: Never a Smoker Type Used: Cigarettes Former Smoker, Quit: Feb 21, 2004 2nd Hand Smoke Exposure: No Recent Foreign Travel: No Contact w/Someone Who Travel: No Recent Hopitalizations: No Past Medical History Surgeries: Yes (BONE GRAFT TO RT WRIST FROM HIP) Orthopedic Respiratory: Yes COPD Cardiac: Yes Hypertension Neurological: Yes (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 0oz. 113.137581tj; BMI Method:Actual General Appearance: WD/WN, no apparent distress, obese HEENT: PERRL/EOMI, normal ENT inspection, TMs normal, pharynx normal Neck: non-tender, full range of motion, supple, normal inspection Respiratory: chest non-tender, lungs clear, normal breath sounds Cardiovascular: normal peripheral pulses, regular rate, rhythm Gastrointestinal: normal bowel sounds, soft, distended; No guarding, No rebound; tenderness (generalized) Extremities: normal range of motion, non-tender, normal inspection Back: no CVA tenderness, decreased range of motion (secondary to pain), vertebral tenderness Neurologic/Psychiatric: no motor/sensory deficits, alert, normal mood/affect, oriented x 3 Skin: normal color, warm/dry Lymphatic: no adenopathy Progress/Results/Core Measures Results/Orders Lab Results Laboratory Tests Test 05/17/19 18:28 05/17/19 18:30 05/17/19 19:56 Range/Units White Blood Count 11.2 H 4.3-11.0 10^3/uL Red Blood Count 5.14 4.35-5.85 10^6/uL Hemoglobin 14.1 13.3-17.7 G/DL Hematocrit 41 40-54 % Mean Corpuscular Volume 80 80-99 FL Mean Corpuscular Hemoglobin 27 25-34 PG Mean Corpuscular Hemoglobin Concent 34 32-36 G/DL Red Cell Distribution Width 15.3 H 10.0-14.5 % Platelet Count 302 130-400 10^3/uL Mean Platelet Volume 10.0 7.4-10.4 FL Neutrophils (%) (Auto) 80 H 42-75 % Lymphocytes (%) (Auto) 13 12-44 % Monocytes (%) (Auto) 5 0-12 % Eosinophils (%) (Auto) 3 0-10 % Basophils (%) (Auto) 1 0-10 % Neutrophils # (Auto) 8.9 H 1.8-7.8 X 10^3 Lymphocytes # (Auto) 1.4 1.0-4.0 X 10^3 Monocytes # (Auto) 0.5 0.0-1.0 X 10^3 Eosinophils # (Auto) 0.3 0.0-0.3 10^3/uL Basophils # (Auto) 0.1 0.0-0.1 10^3/uL Sodium Level 132 L 135-145 MMOL/L Potassium Level 4.4 3.6-5.0 MMOL/L Chloride Level 100 98-107 MMOL/L Carbon Dioxide Level 21 21-32 MMOL/L Anion Gap 11 5-14 MMOL/L Blood Urea Nitrogen 12 7-18 MG/DL Creatinine 0.94 0.60-1.30 MG/DL Estimat Glomerular Filtration Rate > 60 BUN/Creatinine Ratio 13 Glucose Level 337 H 70-105 MG/DL Calcium Level 9.1 8.5-10.1 MG/DL Corrected Calcium 9.3 8.5-10.1 MG/DL Total Bilirubin 0.5 0.1-1.0 MG/DL Aspartate Amino Transf (AST/SGOT) 27 5-34 U/L Alanine Aminotransferase (ALT/SGPT) 35 0-55 U/L Alkaline Phosphatase 109 40-136 U/L Total Protein 7.1 6.4-8.2 GM/DL Albumin 3.7 3.2-4.5 GM/DL Amylase Level 45 25-125 U/L Lipase 12 8-78 U/L Urine Color YELLOW Urine Clarity CLEAR Urine pH 7 5-9 Urine Specific [place] 1.005 L 1.016-1.022 Urine Protein 3+ H NEGATIVE Urine Glucose (UA) 4+ H NEGATIVE Urine Ketones NEGATIVE NEGATIVE Urine Nitrite NEGATIVE NEGATIVE Urine Bilirubin NEGATIVE NEGATIVE Urine Urobilinogen NORMAL NORMAL MG/DL Urine Leukocyte Esterase NEGATIVE NEGATIVE Urine RBC (Auto) NEGATIVE NEGATIVE Urine RBC RARE /HPF Urine WBC NONE /HPF Urine Squamous Epithelial Cells 0-2 /HPF Urine Crystals NONE /LPF Urine Bacteria NEGATIVE /HPF Urine Casts NONE /LPF Urine Mucus NEGATIVE /LPF Urine Culture Indicated NO Urine Opiates Screen NEGATIVE NEGATIVE Urine Oxycodone Screen NEGATIVE NEGATIVE Urine Methadone Screen NEGATIVE NEGATIVE Urine Propoxyphene Screen NEGATIVE NEGATIVE Urine Barbiturates Screen NEGATIVE NEGATIVE Ur Tricyclic Antidepressants Screen NEGATIVE NEGATIVE Urine Phencyclidine Screen NEGATIVE NEGATIVE Urine Amphetamines Screen NEGATIVE NEGATIVE Urine Methamphetamines Screen POSITIVE H NEGATIVE Urine Benzodiazepines Screen NEGATIVE NEGATIVE Urine Cocaine Screen NEGATIVE NEGATIVE Urine Cannabinoids Screen NEGATIVE NEGATIVE Glucometer 210 H 70-110 MG/DL My Orders Orders - LAURENCE,STEPHENIE RECONCILING CLERK Amylase (05/17/19 17:45) Cbc With Automated Diff (05/17/19 17:45) Comprehensive Metabolic Panel (05/17/19 17:45) Lipase (05/17/19 17:45) Ua Culture If Indicated (05/17/19 17:45) Drug Screen Stat (Urine) (05/17/19 18:08) Ketorolac Injection (Toradol Injection) (05/17/19 18:42) Ed Iv/Invasive Line Start (05/17/19 18:42) Ns Iv 1000 Ml (Sodium Chloride 0.9%) (05/17/19 18:42) Insulin (Regular) Human (Humulin R (Per (05/17/19 19:15) Accucheck Stat ONCE (05/17/19 19:44) Medications Given in ED Current Medications Medications Dose Ordered Sig/Zack Route Start Time Stop Time Status Last Admin Dose Admin Insulin Human Regular 10 unit ONCE ONCE SC 05/17/19 19:15 05/17/19 19:16 DC 05/17/19 19:15 10 UNIT Vital Signs/I&O 05/17/19 05/17/19 17:30 20:18 Temp 37.0 37.2 Pulse 68 58 Resp 18 16 B/P (MAP) 168/88 (114) 179/83 (114) Pulse Ox 97 98 Progress Progress Note : Time: 17:45 Progress Note Patient seen and evaluated, will obtain labs and reevaluate. 1800 Toradol 30 mg IV for pain. Glucose 337. 1845 normal saline 1 L and regular insulin 10 units subcutaneously. 1930 glucose 210. Patient taking ice chips with no nausea or vomiting. Reports pain is improving. 1999 discharge instructions and return precautions reviewed with the patient. Encouraged to discontinue methamphetamine use and follow-up with the general surgeon. Diagnostic Imaging Plain Films/CT/US/NM/MRI: other (elbow) Reviewed: Reviewed by Me Departure Impression Primary Impression: Pain in the abdomen Qualified Codes: R10.84 - Generalized abdominal pain Disposition: HOME, SELF-CARE Condition: Improved Departure-Patient Inst. Decision time for Depature: 20:00 Referrals: BRADLEY TOBAR MD (PCP/Family) Primary Care Physician Patient Instructions: Acute Abdomen (Belly Pain), Adult (DC) Add. Discharge Instructions: Continue to monitor your blood sugars and follow your diabetic treatment plan. Follow up with Dr. Tobar for referral to general surgery or call one of the general surgeons. Dr. Bhatt [phone], Dr. Bettencourt or [place] [phone] Clear liquid diet for the next 4 hours then bland diet as tolerated. Return to emergency department for new, urgent health care problems. All discharge instructions reviewed with patient and/or family. Voiced underst anding. Copy Copies To 1: BRADLEY TOBAR MD, AMY ARNP May 17, 2019 17:51
[2019-05-17 18:38] LABS: BASOPHILS # (AUTO) 0.1 10^3/uL (0.0-0.1); BASOPHILS % (AUTO) 1 % (0-10); EOSINOPHILS # (AUTO) 0.3 10^3/uL (0.0-0.3); EOSINOPHILS % (AUTO) 3 % (0-10); HEMATOCRIT 41 % (40-54); HEMOGLOBIN 14.1 G/DL (13.3-17.7); LYMPHOCYTES # (AUTO) 1.4 X 10^3 (1.0-4.0); LYMPHOCYTES % (AUTO) 13 % (12-44); MEAN CORPUSCULAR HEMOGLOBIN 27 PG (25-34); MEAN CORPUSCULAR HGB CONC 34 G/DL (32-36); MEAN CORPUSCULAR VOLUME 80 FL (80-99); MONOCYTES # (AUTO) 0.5 X 10^3 (0.0-1.0); MONOCYTES % (AUTO) 5 % (0-12); NEUTROPHILS # (AUTO) 8.9 X 10^3 (1.8-7.8); NEUTROPHILS % (AUTO) 80 % (42-75); PLATELET COUNT 302 10^3/uL (130-400); RED CELL DISTRIBUTION WIDTH 15.3 % (10.0-14.5); WHITE BLOOD COUNT 11.2 10^3/uL (4.3-11.0)
[2019-05-17] MEDS ORDERED: NS IV 1000 ML 1,000 ML IV SCH (18:42)
[2019-05-17] MEDS ORDERED: KETOROLAC 30 MG/ML VIAL IVP STA (18:42)
[2019-05-17 18:45] LABS: BILIRUBIN,URINE NEGATIVE (NEGATIVE); CLARITY,URINE CLEAR; COLOR,URINE YELLOW; GLUCOSE, URINE (UA) 4+ (NEGATIVE); KETONES,URINE NEGATIVE (NEGATIVE); LEUKOCYTE ESTERASE ,URINE NEGATIVE (NEGATIVE); NITRITE,URINE NEGATIVE (NEGATIVE); PH,URINE 7 (5-9); PROTEIN,URINE 3+ (NEGATIVE); UROBILINOGEN,URINE NORMAL (NORMAL)
[2019-05-17 18:52] LABS: BACTERIA,URINE NEGATIVE /HPF; RBC,URINE RARE /HPF; SQUAMOUS EPITHELIAL CELL,UR 0-2 /HPF
[2019-05-17 18:55] LABS: AMPHETAMINE SCREEN, URINE NEGATIVE (NEGATIVE); BARBITURATE SCREEN URINE NEGATIVE (NEGATIVE); BENZODIAZEPINES SCREEN URINE NEGATIVE (NEGATIVE); CANNABINOID SCREEN, URINE NEGATIVE (NEGATIVE); COCAINE SCREEN URINE NEGATIVE (NEGATIVE); METHADONE STAT NEGATIVE (NEGATIVE); METHAMPHETAMINE SCREEN URINE S POSITIVE (NEGATIVE); OPIATE SCREEN URINE NEGATIVE (NEGATIVE); OXYCODONE STAT NEGATIVE (NEGATIVE); PROPOXYPHENE STAT NEGATIVE (NEGATIVE); TRICYCLIC ANTIDEPRESSANTS SCRE NEGATIVE (NEGATIVE)
[2019-05-17 19:00] LABS: ALANINE AMINOTRANSFERASE 35 U/L (0-55); ALBUMIN 3.7 GM/DL (3.2-4.5); ALKALINE PHOSPHATASE 109 U/L (40-136); AMYLASE 45 U/L (25-125); BILIRUBIN,TOTAL 0.5 MG/DL (0.1-1.0); BUN/CREATININE RATIO 13; CALCIUM 9.1 MG/DL (8.5-10.1); CARBON DIOXIDE 21 MMOL/L (21-32); CHLORIDE 100 MMOL/L (98-107); CREATININE SERUM 0.94 MG/DL (0.60-1.30); GFR ESTIMATED > 60; GLUCOSE 337 MG/DL (70-105); LIPASE 12 U/L (8-78); POTASSIUM 4.4 MMOL/L (3.6-5.0); SODIUM 132 MMOL/L (135-145); TOTAL PROTEIN 7.1 GM/DL (6.4-8.2)
[2019-05-17] MEDS ORDERED: inSUlin (REGULAR) HUMAN 1 UNIT/0.01 ML (CHARGE PER UNIT) SC ONE (19:15)
--- NOTE | 2019-05-17 19:15 | NUR ---
pt reports pain mildly improved, requesting additional pain medication.
--- NOTE | 2019-05-17 19:30 | NUR ---
nnps notified of pt's request of additional pain medication.
[2019-05-17 20:18] VITALS: BP 179/83
[2019-05-18] MEDS ORDERED: CYCL10TA9 PO (04:41)
[2019-05-18] MEDS ORDERED: PRD20T PO (04:41)
== END 2019-05-17 20:17 | disposition home or self-care (01) ==
LOC: EDUNIT# 17:25 → ER 17:26
DX: R10.84 Generalized abdominal pain (principal); J44.9 Chronic obstructive pulmonary disease, unspecified; I10 Essential (primary) hypertension; E11.9 Type 2 diabetes mellitus without complications; E66.9 Obesity, unspecified; Z68.38 Body mass index [BMI] 38.0-38.9, adult; Z88.6 Allergy status to analgesic agent; Z88.5 Allergy status to narcotic agent; Z88.8 Allergy status to other drugs, medicaments and biological substances; Z79.4 Long term (current) use of insulin; Z87.891 Personal history of nicotine dependence
CPT/HCPCS: 36415; 80053; 80306; 81000; 82150; 82962; 83690; 85025

== ENCOUNTER 2019-05-17 20:27 | Emergency (ER) | payer MEDICAID ==
[~2019-05-17] VITALS: Ht 175 cm; Wt 118.0 kg
[2019-05-17 22:20] VITALS: BP 144/79
--- NOTE | 2019-05-17 22:29 | ED Back Pain ---
General Chief Complaint: Back Problems Stated Complaint: BACK PAIN Nursing Triage Note: Pt to triage with C/O lower back pain x 1 yr. Pt says he's seen 2 doctors "but nobody will do anything or give me anything for the pain". Nursing Sepsis Screen: No Definite Risk History of Present Illness Date Seen by Provider: May 17, 2019 Time Seen by Provider: 21:10 Initial Comments 58 year old male was just discharged from this ED, reporting he felt better. He went to waiting room, his IV site began bleeding and then he told the telephone operator receptionist that his back pain was worse and wanted to be re-evaluated. Allergies and Home Medications Allergies Coded Allergies: hydrocodone (Unverified Allergy, Unknown, hives, 02/08/19) aspirin (Unverified Adverse Reaction, Unknown, angioedema, 02/08/19) lisinopril (Unverified Adverse Reaction, Unknown, angioedema, 02/08/19) Home Medications Amlodipine Besylate 5 Mg Tablet, 5 MG PO DAILY, (Reported) Epinephrine 0.3 Mg/0.3/Syringe Pen.injctr, 0.3 MG IM PRN, (Reported) prn anaphylaxis Furosemide 20 Mg Tablet, 1 TAB PO each a.m. Prescribed by: MIKE CASTILLO on 12/24/18 08 Glyburide 5 Mg Tablet, 4 MG PO BIDAC, (Reported) Insulin Aspart 300 Units/3 Ml Solution, 10 UNITS SQ AC Prescribed by: KARON CAMERON on 02/28/192204 Insulin Detemir 100 Unit/1 Ml Insuln.pen, 20 UNIT SQ HS Prescribed by: KARON CAMERON on 02/28/192158 Metformin Hcl 500 Mg Tablet, 2 EACH PO BID, (Reported) Metoclopramide HCl 10 Mg Tablet, 10 MG PO TID Prescribed by: KARON CAMERON on 02/24/191925 Metoclopramide HCl 5 Mg Tablet, 5 MG PO TID PRN for NAUSEA/VOMITING Prescribed by: EVELIO MCINTOSH on 03/15/19 1641 Omeprazole 40 Mg Capsule.dr, 40 MG PO DAILY Prescribed by: KARON CAMERON on 02/24/191925 Potassium Chloride 20 Meq Tab.er.prt, 1 TAB PO ddaily Prescribed by: MIKE CASTILLO on 12/24/18 0844 Tramadol HCl 50 Mg Tablet, 50 MG PO Q6H PRN for PAIN-MODERATE Prescribed by: KARON CAMERON on 02/08/19 1500 Tramadol HCl 50 Mg Tablet, 50 MG PO Q6H PRN for PAIN Prescribed by: KARON CAMERON on 02/24/19 1926 Tramadol HCl 50 Mg Tablet, 50 MG PO QID Prescribed by: EVELIO MCINTOSH on 03/15/19 1641 Past Pydklln-Hsotwk-Genncu Hx Patient Social History Alcohol Use: Denies Use Recreational Drug Use: Yes (in the past) 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 Smoking Status: Former Smoker Type Used: Cigarettes Former Smoker, Quit: Feb 21, 2004 2nd Hand Smoke Exposure: No Recent Foreign Travel: No Contact w/Someone Who Travel: No Recent Infectious Disease Expo: No Recent Hopitalizations: No Physical Abuse: No Sexual Abuse: No Mistreated: No Fear: No Past Medical History Surgeries: Yes (BONE GRAFT TO RT WRIST FROM HIP) Orthopedic Respiratory: Yes COPD Cardiac: Yes Hypertension Neurological: Yes (SUSPECTED PERIPHERAL NEUROPATHY) Reproductive Disorders: No Genitourinary: No Gastrointestinal: Yes (CHRONIC GI COMPLAINTS) Musculoskeletal: Yes (CHRONIC GENERALIZED PAIN COMPLAINTS, ESPECIALLY TO LEGS AND FEET) Endocrine: Yes (OBESE; EXTERME NON-COMPLIANCE IN ALL ASPECTS OF CARE) Diabetes, Insulin dep HEENT: No Cancer: No Psychosocial: No Integumentary: No Blood Disorders: No Physical Exam Vital Signs Vital Signs - First Documented 05/17/19 21:10 Temp 36.9 Pulse 66 Resp 20 B/P (MAP) 179/111 (133) Pulse Ox 100 O2 Delivery Room Air Capillary Refill : Less Than 3 Seconds Height, Weight, BMI Height: 5'9.00" Weight: 251lbs. 0oz. 113.552756el; 38.00 BMI Method:Actual Progress/Results/Core Measures Results/Orders My Orders Orders - STEPHENEI DANG Tramadol Tablet (Ultram Tablet) (05/17/19 21:30) Medications Given in ED Current Medications Medications Dose Ordered Sig/Zack Route Start Time Stop Time Status Last Admin Dose Admin Tramadol HCl 50 mg ONCE ONCE PO 05/17/19 21:30 05/17/19 21:31 DC 05/17/19 21:33 50 MG Vital Signs/I&O 05/17/19 05/17/19 21:10 22:20 Temp 36.9 Pulse 66 69 Resp 20 18 B/P (MAP) 179/111 (133) 144/79 Pulse Ox 100 99 O2 Delivery Room Air Room Air Blood Pressure Mean: 133 Progress Progress Note : Time: 21:20 Progress Note Agent seen and evaluated, we'll give tramadol 50 mg by mouth for pain and reevaluate. 2210 Patient began yelling in his exam room and threatening to leave AMA. Then stated, "if you won't give me stronger pain medication, I am going home and killing myself" Patient became verbally aggressive and threatening this pr ovider. Explained that I would re-evaluate him and consider additional treatment, if indicated. He began yelling at this provider and demanded to leave, explained he could leave AMA, but if he made comments he would kill himself, the police would be notified. His reply was "Fuck You, your a doctor and won't treat my pain" and left. [place] police given his address and asked to complete a welfare check on the patient. Departure Impression Primary Impression: Left against medical advice Additional Impression: Low back pain Qualified Codes: M54.42 - Lumbago with sciatica, left side Disposition: 07 AGAINST MEDICAL ADVICE Condition: Against Medical Advice Departure-Patient Inst. Decision time for Depature: 22:10 Referrals: BRADLEY TOBAR MD (PCP) Primary Care Physician Copy Copies To 1: BRADLEY TOBAR MD, AMY ARNP May 17, 2019 22:29
[2019-05-18] MEDS ORDERED: CYCL10TA9 PO (04:41)
[2019-05-18] MEDS ORDERED: PRD20T PO (04:41)
== END 2019-05-17 22:07 | disposition left against medical advice (07) ==
LOC: EDUNIT# 20:27 → ER 20:29
DX: M54.5 Low back pain (principal); I10 Essential (primary) hypertension; E11.9 Type 2 diabetes mellitus without complications; J44.9 Chronic obstructive pulmonary disease, unspecified; E66.9 Obesity, unspecified; Z68.38 Body mass index [BMI] 38.0-38.9, adult; Z88.5 Allergy status to narcotic agent; Z88.6 Allergy status to analgesic agent; Z88.8 Allergy status to other drugs, medicaments and biological substances; Z79.4 Long term (current) use of insulin; Z87.891 Personal history of nicotine dependence
CPT/HCPCS: 99283

== ENCOUNTER 2019-05-18 04:06 | Emergency (ER) | payer MEDICAID ==
[~2019-05-18] VITALS: Ht 182 cm; Wt 118.0 kg
--- NOTE | 2019-05-18 04:15 | NUR ---
Note nichole in EDM - 05/18/19 at 0451 by PASQUALE While provider attempts to exam pt, pt states, "and if you don't fix my pain, iv'e got a tire iron in my car im going to kill somebody!" ED staff left room and notified [place] Police [employer] of threat.
--- NOTE | 2019-05-18 04:15 | NUR ---
While provider attempts to exam pt, pt states, "and if you don't fix my pain, i'm going to kill somebody! I've got a tire iron in my care I can do it with!" ED staff left room and notified [place] [employer] of threat.
--- NOTE | 2019-05-18 04:20 | NUR ---
[place] [employer] arrive to ED.
--- NOTE | 2019-05-18 04:35 | ED Back Pain ---
General Chief Complaint: Back Problems Stated Complaint: BACK PAIN Nursing Triage Note: Pt amb to room #5 with c/o medial, lower back pain. Pt reports back pain has been going on for approx 9 months. Reports pain radiates down lt leg to lt knee. Denies loss of bowel or bladder control. Nursing Sepsis Screen: No Definite Risk Source of Information: Patient, Old Records Exam Limitations: No Limitations History of Present Illness Date Seen by Provider: May 18, 2019 Time Seen by Provider: 04:07 Initial Comments This 58-year-old man presents to the emergency room for the third time during my shift. He was seen previously by Kimberli Cadet NP. He has been worked up for abdo zaira and back pain in recent months. He continues to have pain without clear etiology. He had been dismissed after treatment of his pain but checked back in before ever leaving the building stating his pain was worse. He demanded stronger pain medicine and became belligerent and threatening to Kimberli Cadet. He then left AGAINST MEDICAL ADVICE after making statements about self-harm. Police were notified for a welfare check. Patient now presents complaining of pain in the left lower back that radiates down into the left thigh. He states the treatments given to him earlier did not reduce his pain significantly. During the interview, before he was even examined, he yelled "if you don't fix my pain or I'm going to kill somebody. I have a tire iron out in the car I can do it with." This was considered a threat by everyone in the room. Patient was informed that he would have no further interaction with staff until police were on site. Chart from prior visits was reviewed. Patient did have a positive methamphetamines screen See prior documentation from Kimberli Cadet Allergies and Home Medications Allergies Coded Allergies: hydrocodone (Unverified Allergy, Unknown, hives, 02/08/19) aspirin (Unverified Adverse Reaction, Unknown, angioedema, 02/08/19) lisinopril (Unverified Adverse Reaction, Unknown, angioedema, 02/08/19) Home Medications Amlodipine Besylate 5 Mg Tablet, 5 MG PO DAILY, (Reported) Cyclobenzaprine HCl 10 Mg Tablet, 10 MG PO Q8H PRN for SPASMS Prescribed by: EVELIO MCINTOSH on 05/18/19 0441 Epinephrine 0.3 Mg/0.3/Syringe Pen.injctr, 0.3 MG IM PRN, (Reported) prn anaphylaxis Furosemide 20 Mg Tablet, 1 TAB PO each a.m. Prescribed by: MIKE CASTILLO on 12/24/18 08 Glyburide 5 Mg Tablet, 4 MG PO BIDAC, (Reported) Insulin Aspart 300 Units/3 Ml Solution, 10 UNITS SQ AC Prescribed by: KARON CAMERON on 02/28/192204 Insulin Detemir 100 Unit/1 Ml Insuln.pen, 20 UNIT SQ HS Prescribed by: KARON CAMERON on 02/28/192158 Metformin Hcl 500 Mg Tablet, 2 EACH PO BID, (Reported) Metoclopramide HCl 10 Mg Tablet, 10 MG PO TID Prescribed by: KARON CAMERON on 02/24/191925 Metoclopramide HCl 5 Mg Tablet, 5 MG PO TID PRN for NAUSEA/VOMITING Prescribed by: EVELIO MCINTOSH on 03/15/19 164 Omeprazole 40 Mg Capsule.dr, 40 MG PO DAILY Prescribed by: KARON CAMERON on 02/24/191925 Potassium Chloride 20 Meq Tab.er.prt, 1 TAB PO ddaily Prescribed by: MIKE CASTILLO on 12/24/18843 Prednisone 20 Mg Tab, 20 MG PO DAILY Prescribed by: EVELIO MCINTOSH on 05/18/19 0441 Tramadol HCl 50 Mg Tablet, 50 MG PO Q6H PRN for PAIN-MODERATE Prescribed by: KARON CAMERON on 02/08/19 1500 Tramadol HCl 50 Mg Tablet, 50 MG PO Q6H PRN for PAIN Prescribed by: KARON CAMERON on 02/24/191925 Tramadol HCl 50 Mg Tablet, 50 MG PO QID Prescribed by: EVELIO MCINTOSH on 03/15/19 164 Patient Home Medication List Home Medication List Reviewed: Yes Review of Systems Constitutional: no symptoms reported EENTM: no symptoms reported Respiratory: no symptoms reported Cardiovascular: no symptoms reported Gastrointestinal: see HPI Genitourinary: no symptoms reported Musculoskeletal: see HPI Skin: no symptoms reported Psychiatric/Neurological: See HPI Past Xewpnca-Ttxpiy-Dsycer Hx Past Med/Social Hx: Reviewed Nursing Past Med/Soc Hx Patient Social History Alcohol Use: Denies Use Recreational Drug Use: Yes (in the past) 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 Smoking Status: Former Smoker Type Used: Cigarettes Former Smoker, Quit: Feb 21, 2004 2nd Hand Smoke Exposure: No Recent Foreign Travel: No Contact w/Someone Who Travel: No Recent Infectious Disease Expo: No Recent Hopitalizations: No Past Medical History Surgeries: Yes (BONE GRAFT TO RT WRIST FROM HIP) Orthopedic Respiratory: Yes COPD Cardiac: Yes Hypertension Neurological: Yes (SUSPECTED PERIPHERAL NEUROPATHY) Reproductive Disorders: No Genitourinary: No Gastrointestinal: Yes (CHRONIC GI COMPLAINTS) Musculoskeletal: Yes (CHRONIC GENERALIZED PAIN COMPLAINTS, ESPECIALLY TO LEGS AND FEET) Endocrine: Yes (OBESE; EXTERME NON-COMPLIANCE IN ALL ASPECTS OF CARE) Diabetes, Insulin dep HEENT: No Cancer: No Psychosocial: No Integumentary: No Blood Disorders: No Physical Exam Vital Signs Vital Signs - First Documented 05/18/19 04:15 Temp 36.9 Pulse 83 Resp 18 B/P (MAP) 158/69 (98) Pulse Ox 97 O2 Delivery Room Air Capillary Refill : Less Than 3 Seconds Height, Weight, BMI Height: 5'9.00" Weight: 251lbs. 0oz. 113.121993wy; 35.00 BMI Method:Actual General Appearance: WD/WN, Obese, Other (agitated, angry) HEENT: PERRL/EOMI, Normal ENT Inspection Cardiovascular: Regular Rate, Rhythm, No Murmur Respiratory: No Accessory Muscle Use, No Respiratory Distress, Wheezing (slight) Gastrointestinal: Non Tender, Soft Back: Other (muscle spasm palpated in the left lower back) Extremity: Normal Inspection Neurologic/Psychiatric: Alert, Oriented x3, No Motor/Sensory Deficits, Other (agitated, angry) Skin: Normal Color, Warm/Dry Progress/Results/Core Measures Results/Orders My Orders Orders - EVELIO MATHEWS MD Tramadol Tablet (Ultram Tablet) (05/18/19 04:45) Prednisone Tablet (Deltasone Tablet) (05/18/19 04:45) Medications Given in ED Current Medications Medications Dose Ordered Sig/Zack Route Start Time Stop Time Status Last Admin Dose Admin Prednisone 40 mg ONCE ONCE PO 05/18/19 04:45 05/18/19 04:46 DC 05/18/19 04:36 40 MG Tramadol HCl 50 mg ONCE ONCE PO 05/18/19 04:45 05/18/19 04:46 DC 9/26/19 04:35 50 MG Vital Signs/I&O 05/18/19 05/18/19 04:15 04:45 Temp 36.9 36.9 Pulse 83 79 Resp 18 18 B/P (MAP) 158/69 (98) 170/110 (98) Pulse Ox 97 95 O2 Delivery Room Air Room Air Blood Pressure Mean: 98 Progress Progress Note : Progress Note [place] police were called and presented to the emergency room. Reports were filed. Patient eventually allowed examination and evaluation. Patient's pain was treated with prednisone and tramadol. He declined a Toradol injection stating it did not help the first time despite telling a me that it did. Patient was discharged and escorted from the building by police. Departure Impression Primary Impression: Lower back pain Qualified Codes: M54.42 - Lumbago with sciatica, left side; G89.29 - Other chronic pain Additional Impression: Back muscle spasm Disposition: HOME, SELF-CARE Condition: Improved Departure-Patient Inst. Decision time for Depature: 04:33 Referrals: BRADLEY TOBAR MD (PCP/Family) Primary Care Physician Patient Instructions: Low Back Pain in Adults Add. Discharge Instructions: Complete the prednisone as prescribed to help reduce inflammation in your back. Monitor your blood sugars closely while you are on prednisone. Adjust your insulin doses if needed to accommodate higher blood sugars. Try non-pharmacologic treatments such as gentle heat on your back. Use cyclobenzaprine muscle relaxer as prescribed. You may additionally take Tylenol (acetaminophen) up to 1000 mg every 6 hours as needed. Please follow-up with Dr. Tobar later today to discuss further treatment and evaluation of your back pain. All discharge instructions reviewed with patient and/or family. Voiced understanding. Scripts Prednisone (Prednisone) 20 Mg Tab 20 MG PO DAILY, #4 TAB 0 Refills Prov: EVELIO MATHEWS MD 05/18/19 Cyclobenzaprine HCl (Cyclobenzaprine HCl) 10 Mg Tablet 10 MG PO Q8H PRN for SPASMS, #5 TAB 0 Refills Prov: EVELIO MATHEWS MD 05/18/19 Copy Copies To 1: BRADLEY TOBAR MD, JOSHUA T MD May 18, 2019 04:35
[2019-05-18] MEDS ORDERED: CYCL10TA9 PO (04:41)
[2019-05-18] MEDS ORDERED: PRD20T PO (04:41)
[2019-05-18 04:45] VITALS: BP 170/110
[2019-05-18] MEDS ORDERED: predniSONE 20 MG TAB PO ONE (04:45)
== END 2019-05-18 04:45 | disposition home or self-care (01) ==
LOC: EDUNIT# 04:06 → ER 04:07
DX: M62.830 Muscle spasm of back (principal); I10 Essential (primary) hypertension; J44.9 Chronic obstructive pulmonary disease, unspecified; E11.9 Type 2 diabetes mellitus without complications; E66.9 Obesity, unspecified; Z68.35 Body mass index [BMI] 35.0-35.9, adult; Z88.5 Allergy status to narcotic agent; Z88.8 Allergy status to other drugs, medicaments and biological substances; Z88.6 Allergy status to analgesic agent; Z79.4 Long term (current) use of insulin; Z87.891 Personal history of nicotine dependence
CPT/HCPCS: 99283

== ENCOUNTER 2019-06-26 09:34 | Inpatient (IN) | payer MEDICAID ==
[~2019-06-26] VITALS: Ht 175 cm; Wt 107.0 kg
[2019-06-26] VITALS (10 sets, daily range): BP systolic 82–160; BP diastolic 48–95
[~2019-06-26 09:34] MED LIST changes: +CYCL10TA9 PO; +PRD20T PO
[2019-06-26 09:58] LABS: BASOPHILS % (AUTO) 0 % (0-10); EOSINOPHILS % (AUTO) 0 % (0-10); HEMATOCRIT 40 % (40-54); HEMOGLOBIN 13.6 G/DL (13.3-17.7); LYMPHOCYTES # (AUTO) 1.2 X 10^3 (1.0-4.0); LYMPHOCYTES % (AUTO) 4 % (12-44); MEAN CORPUSCULAR HEMOGLOBIN 29 PG (25-34); MEAN CORPUSCULAR HGB CONC 34 G/DL (32-36); MEAN CORPUSCULAR VOLUME 84 FL (80-99); MEAN PLATELET VOLUME 10.1 FL (7.4-10.4); MONOCYTES # (AUTO) 0.5 X 10^3 (0.0-1.0); MONOCYTES % (AUTO) 1 % (0-12); NEUTROPHILS # (AUTO) 32.6 X 10^3 (1.8-7.8); NEUTROPHILS % (AUTO) 95 % (42-75); PLATELET COUNT 349 10^3/uL (130-400); RED CELL DISTRIBUTION WIDTH 14.5 % (10.0-14.5)
--- NOTE | 2019-06-26 09:59 | ED Chest Pain ---
General Chief Complaint: Chest Pain Stated Complaint: CHEST PAIN;SOA Nursing Triage Note: ASSISSTED PT TO WHEEL CHAIR WHILE IN LOBBY. COMPLAINS OF CHEST PAIN STARTING 4-5 DAYS AGO. WHEN ASKED WHAT MAKES A DIFFERENCE TODAY HIS ONLY RESPONSE IS "I JUST KNEW". DENIES ANY OTHER HEART ISSUES. Nursing Sepsis Screen: No Definite Risk Source: patient Exam Limitations: no limitations History of Present Illness Date Seen by Provider: Jun 26, 2019 Time Seen by Provider: 09:54 Initial Comments This 59-year-old white male presents with a four-day history of chest pain. The patient's pain was worse today precipitating his presentation in the emergency department. The patient denies previous documented heart disease. He has quit smoking. He denies significant alcohol. He shot up meth one week ago. Patient's chest pain is sharp in nature and severe over his anterior chest without significant radiation. The patient has a history of high blood pressure and diabetes. Allergies and Home Medications Allergies Coded Allergies: hydrocodone (Unverified Allergy, Unknown, hives, 02/08/19) aspirin (Unverified Adverse Reaction, Unknown, angioedema, 02/08/19) lisinopril (Unverified Adverse Reaction, Unknown, angioedema, 02/08/19) Home Medications Amlodipine Besylate 5 Mg Tablet, 5 MG PO DAILY, (Reported) Cyclobenzaprine HCl 10 Mg Tablet, 10 MG PO Q8H PRN for SPASMS Prescribed by: EVELIO MCINTOSH on 05/18/19 0441 Epinephrine 0.3 Mg/0.3/Syringe Pen.injctr, 0.3 MG IM PRN, (Reported) prn anaphylaxis Furosemide 20 Mg Tablet, 1 TAB PO each a.m. Prescribed by: MIKE CASTILLO on 12/24/18 0844 Glyburide 5 Mg Tablet, 4 MG PO BIDAC, (Reported) Insulin Aspart 300 Units/3 Ml Solution, 10 UNITS SQ AC Prescribed by: KARON CAMERON on 02/28/192204 Insulin Detemir 100 Unit/1 Ml Insuln.pen, 20 UNIT SQ HS Prescribed by: KARON CAMERON on 02/28/192158 Metformin Hcl 500 Mg Tablet, 2 EACH PO BID, (Reported) Metoclopramide HCl 10 Mg Tablet, 10 MG PO TID Prescribed by: KARON CAMERNO on 7/5/19 1926 Metoclopramide HCl 5 Mg Tablet, 5 MG PO TID PRN for NAUSEA/VOMITING Prescribed by: EVELIO MCINTOSH on 03/15/19 164 Omeprazole 40 Mg Capsule.dr, 40 MG PO DAILY Prescribed by: KARON CAMERON on 02/24/19 192 Potassium Chloride 20 Meq Tab.er.prt, 1 TAB PO ddaily Prescribed by: MIKE CASTILLO on 12/24/18 0844 Prednisone 20 Mg Tab, 20 MG PO DAILY Prescribed by: EVELIO MCINTOSH on 05/18/19 0441 Tramadol HCl 50 Mg Tablet, 50 MG PO Q6H PRN for PAIN-MODERATE Prescribed by: KARON CAMERON on 02/08/19 1500 Tramadol HCl 50 Mg Tablet, 50 MG PO Q6H PRN for PAIN Prescribed by: KARON CAMERON on 02/24/19 192 Tramadol HCl 50 Mg Tablet, 50 MG PO QID Prescribed by: EVELIO MCINTOSH on 03/15/191640 Patient Home Medication List Home Medication List Reviewed: Yes Review of Systems Review of Systems Constitutional: fever EENTM: No Blurred Vision Respiratory: Denies Cough Cardiovascular: See HPI, Chest Pain Gastrointestinal: Denies Abdominal Pain, Denies Nausea, Denies Vomiting Genitourinary: No Symptoms Reported Musculoskeletal: no symptoms reported Skin: no symptoms reported Psychiatric/Neurological: No Symptoms Reported Endocrine: No Symptoms Reported Hematologic/Lymphatic: No Symptoms Reported Past Tptfllh-Ishafe-Ttzjyj Hx Past Med/Social Hx: Reviewed Nursing Past Med/Soc Hx Patient Social History Alcohol Use: Denies Use Recreational Drug Use: Yes Drug of Choice: METH Smoking Status: Never a Smoker Type Used: Cigarettes Former Smoker, Quit: Feb 21, 2004 2nd Hand Smoke Exposure: No Recent Foreign Travel: No Contact w/Someone Who Travel: No Recent Infectious Disease Expo: No Recent Hopitalizations: No Past Medical History Surgeries: Yes (BONE GRAFT TO RT WRIST FROM HIP) Orthopedic Respiratory: Yes COPD Cardiac: Yes Hypertension Neurological: Yes (SUSPECTED PERIPHERAL NEUROPATHY) Reproductive Disorders: No Genitourinary: No Gastrointestinal: Yes (CHRONIC GI COMPLAINTS) Musculoskeletal: Yes (CHRONIC GENERALIZED PAIN COMPLAINTS, ESPECIALLY TO LEGS AND FEET) Endocrine: Yes (OBESE; EXTERME NON-COMPLIANCE IN ALL ASPECTS OF CARE) Diabetes, Insulin dep HEENT: No Cancer: No Psychosocial: No Integumentary: No Blood Disorders: No Physical Exam Vital Signs Vital Signs - First Documented 06/26/19 09:34 Temp 36.7 Pulse 115 Resp 18 Pulse Ox 92 O2 Delivery Nasal Cannula O2 Flow Rate 2.00 Capillary Refill : Less Than 3 Seconds Height, Weight, BMI Height: 5'9.00" Weight: 251lbs. 0oz. 113.983323to; 38.00 BMI Method:Actual General Appearance: Moderate Distress, Obese HEENT: Normal ENT Inspection Neck: Normal Inspection Respiratory: Decreased Breath Sounds, Respiratory Distress Cardiovascular: Regular Rate, Rhythm, No Murmur Gastrointestinal: Normal Bowel Sounds Extremity: Normal Capillary Refill, Normal Inspection, Normal Range of Motion Neurologic/Psychiatric: Alert, Oriented x3, No Motor/Sensory Deficits Skin: Normal Color, Warm/Dry Focused Exam Lactate Level 06/26/19 09:45: Lactic Acid Level 6.29*H Lactic Acid Level Laboratory Tests Test 06/26/19 09:45 Lactic Acid Level 6.29 MMOL/L (0.50-2.00) *H Progress/Results/Core Measures Results/Orders Lab Results Laboratory Tests Test 06/26/19 09:45 06/26/19 10:30 Range/Units White Blood Count 34.3 *H 4.3-11.0 10^3/uL Red Blood Count 4.76 4.35-5.85 10^6/uL Hemoglobin 13.6 13.3-17.7 G/DL Hematocrit 40 40-54 % Mean Corpuscular Volume 84 80-99 FL Mean Corpuscular Hemoglobin 29 25-34 PG Mean Corpuscular Hemoglobin Concent 34 32-36 G/DL Red Cell Distribution Width 14.5 10.0-14.5 % Platelet Count 349 130-400 10^3/uL Mean Platelet Volume 10.1 7.4-10.4 FL Neutrophils (%) (Auto) 95 H 42-75 % Lymphocytes (%) (Auto) 4 L 12-44 % Monocytes (%) (Auto) 1 0-12 % Eosinophils (%) (Auto) 0 0-10 % Basophils (%) (Auto) 0 0-10 % Neutrophils # (Auto) 32.6 H 1.8-7.8 X 10^3 Lymphocytes # (Auto) 1.2 1.0-4.0 X 10^3 Monocytes # (Auto) 0.5 0.0-1.0 X 10^3 Eosinophils # (Auto) 0.0 0.0-0.3 10^3/uL Basophils # (Auto) 0.0 0.0-0.1 10^3/uL Neutrophils % (Manual) 61 % Lymphocytes % (Manual) 2 % Monocytes % (Manual) 0 % Eosinophils % (Manual) 0 % Basophils % (Manual) 0 % Band Neutrophils 37 % Blood Morphology Comment NORMAL Prothrombin Time 17.7 H 12.2-14.7 SEC INR Comment 1.4 0.8-1.4 Activated Partial Thromboplast Time 36 H 24-35 SEC Sodium Level 129 L 135-145 MMOL/L Potassium Level 4.3 3.6-5.0 MMOL/L Chloride Level 92 L 98-107 MMOL/L Carbon Dioxide Level 22 21-32 MMOL/L Anion Gap 15 H 5-14 MMOL/L Blood Urea Nitrogen 24 H 7-18 MG/DL Creatinine 1.82 H 0.60-1.30 MG/DL Estimat Glomerular Filtration Rate 38 BUN/Creatinine Ratio 13 Glucose Level 322 H 70-105 MG/DL Lactic Acid Level 6.29 *H 0.50-2.00 MMOL/L Calcium Level 9.6 8.5-10.1 MG/DL Corrected Calcium 10.1 8.5-10.1 MG/DL Magnesium Level 1.6 1.6-2.4 MG/DL Total Bilirubin 1.6 H 0.1-1.0 MG/DL Aspartate Amino Transf (AST/SGOT) 10 5-34 U/L Alanine Aminotransferase (ALT/SGPT) 12 0-55 U/L Alkaline Phosphatase 93 40-136 U/L Myoglobin 176.6 H 10.0-92.0 NG/ML Troponin I 0.094 H <0.028 NG/ML Total Protein 7.4 6.4-8.2 GM/DL Albumin 3.4 3.2-4.5 GM/DL Blood Gas Puncture Site LRAD Blood Gas Patient Temperature 36.7 Arterial Blood pH 7.49 H 7.37-7.43 Arterial Blood Partial Pressure CO2 29 L 35-45 MMHG Arterial Blood Partial Pressure O2 65 L 79-93 MMHG Arterial Blood HCO3 22 L 23-27 MMOL/L Arterial Blood Total CO2 23.1 21.0-31.0 MMOL/L Arterial Blood Oxygen Saturation 94 94-100 % Arterial Blood Base Excess -0.8 -2.5-2.5 MMOL/L Yvan Test YES-POS Blood Gas Ventilator Setting NO Blood Gas Inspired Oxygen 4 My Orders Orders - SHREYAS ESCALANTE MD Ekg Tracing (06/26/19 09:35) Cbc With Automated Diff (06/26/19 09:47) Magnesium (06/26/19 09:47) Chest 1 View, Ap/Pa Only (06/26/19 09:47) Cardiac Profile 1 (06/26/19 09:47) Comprehensive Metabolic Panel (06/26/19 09:47) Myoglobin Serum (06/26/19 09:47) Protime With Inr (06/26/19:47) Partial Thromboplastin Time (06/26/19 09:47) O2 (06/26/19 09:47) Monitor-Rhythm Ecg Trace Only (06/26/19 09:47) Lipid Panel (06/27/19 06:00) Ed Iv/Invasive Line Start (06/26/19 09:47) Nitroglycerin 0.4 Mg Btl 25's (Nitrostat (06/26/19 10:00) Aspirin Chewable Tablet (Baby Aspirin Ch (06/26/19 10:00) Manual Differential (06/26/19 09:45) Blood Culture (06/26/19 09:59) Lactic Acid Analyzer (06/26/19 09:59) Ua Culture If Indicated (06/26/19 10:03) Albuterol/Ipra Inhalation Soln (Duoneb I (06/26/19 10:13) Arterial Blood Gas (06/26/19 10:20) Fibrin Degradation Products (06/26/19 10:25) BNP (06/26/19 10:25) Ceftriaxone For Iv Use (Rocephin For I (06/26/19 10:30) Azithromycin Injection (Zithromax Inject (06/26/19 10:30) Drug Screen Stat (Urine) (06/26/19 10:32) Medications Given in ED Current Medications Medications Dose Ordered Sig/Zack Route Start Time Stop Time Status Last Admin Dose Admin Albuterol/ Ipratropium 3 ml STK-MED ONCE .ROUTE 06/26/19 10:13 06/26/19 10:16 DC 06/26/19 10:19 3 ML Aspirin 324 mg ONCE ONCE PO 06/26/19 10:00 06/26/19 10:01 DC 06/26/19 09:57 324 MG Nitroglycerin 0.4 mg UD PRN SL 06/26/19 10:00 06/26/19 09:57 0.4 MG Vital Signs/I&O 06/26/19 06/26/19 06/26/19 09:34 09:53 10:19 Temp 36.7 Pulse 115 Resp 18 B/P (MAP) Pulse Ox 92 90 O2 Delivery Nasal Cannula Nasal Cannula Nasal Cannula O2 Flow Rate 2.00 2.00 4.00 Progress Progress Note : Time: 10:40 Progress Note Patient's EKG demonstrated a sinus tachycardia with nonspecific ST and T-wave changes. The patient's chest x-ray demonstrated a large left infiltrate. The white count was 35,000. Blood cultures and lactic acid have been drawn. The patient was given 2 g of Rocephin and [address] Guillaume was kind enough to admit the patient to the ICU. Dr. Parks has been consult. Initial ECG Impression Date: Jun 26, 2019 Departure Communication (Admissions) Time/Spoke to Admitting Phy: 10:41 Dr. Guillaume Time/Spoke to Consulting Phy: 10:42 Dr. Parks Impression Primary Impression: Pneumonia Qualified Codes: J18.9 - Pneumonia, unspecified organism Disposition: ADMITTED INPATIENT Condition: Improved Admissions Decision to Admit Reason: Admit from ER (General) Decision to Admit/Date: Jun 26, 2019 Time/Decision to Admit Time: 10:43 Departure-Patient Inst. Referrals: BRADLEY TOBAR MD (PCP/Family) Primary Care Physician SHREYAS ESCALANTE MD Jun 26, 2019 09:59 POS
[2019-06-26] MEDS ORDERED: ASPIRIN 81 MG CHEW (CHILDREN'S ASA) PO ONE (10:00)
[2019-06-26] MEDS ORDERED: NITROGLYCERIN 0.4 MG SL TABS BTL 25'S SL PRN (10:00)
[2019-06-26 10:02] LABS: WHITE BLOOD COUNT 34.3 10^3/uL (4.3-11.0)
--- NOTE | 2019-06-26 10:07 | NUR ---
PT PULSE OX DECREASED TO 86%. ENCOURAGED POSITION CHANGE IN BED WHICH HE WOULD NOT DO. OXYGEN INCREASED TO 4LNC.
[2019-06-26 10:10] LABS: INR 1.4 (0.8-1.4); PROTHROMBIN TIME PATIENT 17.7 SEC (12.2-14.7)
--- NOTE | 2019-06-26 10:11 | NUR ---
AFTER PLACING ON 4L PULSE OX STILL 89%. SAT PT UP IN BED ET INCREASED TO 90%. DR NOTIFIED. RT CALLED FOR BREATHING TX AND BLOOD GAS.
[2019-06-26] MEDS ORDERED: RT-ALBUTEROL/IPRATROPIUM 3 ML (DUONEB) VIAL ONE (10:13)
--- NOTE | 2019-06-26 10:15 | NUR ---
RT IN ROOM AT THIS TIME.
[2019-06-26 10:16] LABS: ALBUMIN 3.4 GM/DL (3.2-4.5); BILIRUBIN,TOTAL 1.6 MG/DL (0.1-1.0); CALCIUM 9.6 MG/DL (8.5-10.1); CREATININE SERUM 1.82 MG/DL (0.60-1.30); MAGNESIUM 1.6 MG/DL (1.6-2.4); POTASSIUM 4.3 MMOL/L (3.6-5.0); TOTAL PROTEIN 7.4 GM/DL (6.4-8.2)
--- NOTE | 2019-06-26 10:16 | NUR ---
LAB IN ROOM DRAWING 2ND CULTURE AT THIS TIME.
--- NOTE | 2019-06-26 10:26 | Diagnostic Imaging Report ---
INDICATION: Chest pain. COMPARISON: 02/06/2019 TECHNIQUE: Single frontal radiograph of the chest dated 06/26/2019. FINDINGS: The cardiac silhouette is at the upper limits of normal in size, though stable. No significant pulmonary vascular congestion. Extensive opacities have developed overlying the left mid and upper lung, predominantly peripherally. The right lung remains clear. No significant pleural effusion. No pneumothorax. No acute osseous abnormality. IMPRESSION: Interval development of extensive left-sided pulmonary opacities, possibly related to underlying pneumonia. Recommend clinical correlation. Additionally, followup radiographs are recommended to ensure resolution as additional etiologies, including malignancy cannot be excluded. Dictated by: Dictated on workstation # [id number]
[2019-06-26 10:30] LABS: BAND NEUTROPHILS 37 %; BASOPHILS % (MANUAL) 0 %; EOSINOPHILS % (MANUAL) 0 %; LYMPHOCYTES % (MANUAL) 2 %; MONOCYTES % (MANUAL) 0 %; NEUTROPHILS % (MANUAL) 61 %; RBC MORPH NORMAL
[2019-06-26] MEDS ORDERED: AZITHROMYCIN INJECTION 500 MG in NS (IVPB) 250 ML IV ONE (10:30)
[2019-06-26] MEDS ORDERED: cefTRIAXone FOR IV USE 2,000 MG in WATER (STERILE) FOR INJECTION 20 ML IV ONE (10:30)
[2019-06-26 10:33] LABS: ABG BASE EXCESS -0.8 MMOL/L (-2.5-2.5); ABG OXYGEN SATURATION 94 % (94-100); ABG PCO2 29 MMHG (35-45); ABG PH 7.49 (7.37-7.43); ABG PO2 65 MMHG (79-93); ABG TCO2 23.1 MMOL/L (21.0-31.0)
[2019-06-26 10:34] LABS: ALLENS TEST YES-POS; INSPIRED O2 4; PATIENT TEMP 36.7; VENTILATOR NO
--- NOTE | 2019-06-26 10:44 | NUR ---
[employer] DEVELOPER CONTACTED FOR A BED. NOTIFIED IT WOULD BE 3-4 HOURS. NOTIFIED.
--- NOTE | 2019-06-26 10:47 | NUR ---
LUNCH ORDERED FOR PT.
--- NOTE | 2019-06-26 10:50 | NUR ---
PT LAYING DOWN IN BED AGAIN. ASSISTED PT TO CHAIR.
--- NOTE | 2019-06-26 11:00 | NUR ---
PT OUT OF CHAIR AND BACK INTO BED ET LAYING FLAT. PULSE OX 89%. EXPLAINED TO HIM HE COULD NOT LAY DOWN. SAT BACK UP AT SIDE OF BED AND LUNCH GIVEN.
--- NOTE | 2019-06-26 11:09 | NUR ---
DR WALKED INTO ROOM AND PT HAD OXYGEN OFF AGAIN. RT CALLED FOR VAPOTHERM.
--- NOTE | 2019-06-26 11:10 | NUR ---
PT LAYING BACK DOWN IN BED AGAIN.
[2019-06-26 11:13] LABS: BILIRUBIN,URINE NEGATIVE (NEGATIVE); CLARITY,URINE CLEAR; COLOR,URINE YELLOW; GLUCOSE, URINE (UA) 4+ (NEGATIVE); KETONES,URINE NEGATIVE (NEGATIVE); LEUKOCYTE ESTERASE ,URINE NEGATIVE (NEGATIVE); NITRITE,URINE NEGATIVE (NEGATIVE); PH,URINE 6 (5-9); PROTEIN,URINE 3+ (NEGATIVE)
--- NOTE | 2019-06-26 11:17 | NUR ---
RT IN ROOM FOR VAPOTHERM
[2019-06-26 11:29] LABS: BACTERIA,URINE TRACE /HPF; RBC,URINE RARE /HPF; SQUAMOUS EPITHELIAL CELL,UR 0-2 /HPF; WBC,URINE RARE /HPF
[2019-06-26 11:34] LABS: AMPHETAMINE SCREEN, URINE POSITIVE (NEGATIVE); BARBITURATE SCREEN URINE NEGATIVE (NEGATIVE); BENZODIAZEPINES SCREEN URINE NEGATIVE (NEGATIVE); CANNABINOID SCREEN, URINE NEGATIVE (NEGATIVE); COCAINE SCREEN URINE NEGATIVE (NEGATIVE); METHADONE STAT NEGATIVE (NEGATIVE); METHAMPHETAMINE SCREEN URINE S POSITIVE (NEGATIVE); OPIATE SCREEN URINE NEGATIVE (NEGATIVE); OXYCODONE STAT NEGATIVE (NEGATIVE); PROPOXYPHENE STAT NEGATIVE (NEGATIVE); TRICYCLIC ANTIDEPRESSANTS SCRE NEGATIVE (NEGATIVE)
--- NOTE | 2019-06-26 11:34 | NUR ---
VAPOTHERM ON BUT PT WILL NOT SIT UP IN BED ET WANTS TO LAY DOWN.
[2019-06-26] MEDS: NS IV 1000 ML 1,000 ML IV SCH ×6 (12:03→23:09)
--- NOTE | 2019-06-26 12:08 | NUR ---
PT CONTINUES TO LAY IN BED IN A BAD POSITION. ENCOURAGED TO SIT UP WHICH HE REFUSES. PT HAD VAPOTHERM OFF ET STATES IT BERRIOS. VAPOTHERM PLACED BACK INTO NOSE.
--- NOTE | 2019-06-26 12:20 | NUR ---
DR ZAVALETA HERE TO PT.
[2019-06-26] MEDS ORDERED: IOHEXOL 350 MG/ML 100 ML (OMNIPAQUE 350) VIAL IV ONE (12:30)
[2019-06-26] MEDS ORDERED: HOLD METFORMIN - RECEIVED CONTRAST 20 ML VIAL IV SCH (12:30)
[2019-06-26] MEDS ORDERED: NS 100 ML (IVPB) BAG IV ONE (12:30)
--- NOTE | 2019-06-26 12:51 | Diagnostic Imaging Report ---
PROCEDURE: CT angiography of the chest with contrast. TECHNIQUE: Multiple contiguous axial images were obtained through the chest after uneventful bolus administration of intravenous contrast. 3D reconstructed CTA MIP acquisitions were also performed. Auto Exposure Controls were utilized during the CT exam to meet ALARA standards for radiation dose reduction. INDICATION: Chest pain and shortness of air. COMPARISON: None. FINDINGS: There is no evidence of acute pulmonary embolus to the first subsegmental division of the pulmonary arteries. The thoracic aorta is suboptimally opacified but appears to be normal in course and caliber. There is mild scattered calcified aortic atherosclerosis. The heart does appear mildly enlarged. There is no large pericardial effusion. Several prominent appearing mediastinal lymph nodes are identified. A reference lymph node is identified within the anterior mediastinal fat and measures 1.7 x 2 cm (image 45, series 3). The left hilum is obscured by airspace disease within the left lung. There is no abnormal right hilar adenopathy. No abnormal lymph nodes are seen within the axilla. Evaluation of the lung davila demonstrates a large area of dense consolidation involving the left upper lobe. There is also a small left effusion and minimal atelectasis of the left lower lobe. The right lung is partially obscured by motion artifact but is otherwise clear. There is no large effusion or pneumothorax on the right. Pulmonary nodules may be obscured by the pulmonary parenchymal disease. The osseous structures show moderate multilevel degenerative changes. The included portions of the upper abdomen show a moderate hiatal hernia. IMPRESSION: 1. No evidence of acute pulmonary embolus. 2. Large area of dense consolidation of the left upper lobe, concerning for alveolar pneumonia. A followup CT chest after an appropriate course of anabiotic therapy is recommended to exclude underlying pulmonary nodule or mass. 3. Small left effusion. 4. Mild cardiomegaly with mild scattered calcified aortic atherosclerosis. 5. Multiple enlarged mediastinal lymph nodes, possibly reactive. Again, followup is advised. Dictated by: Dictated on workstation # [id number]
[2019-06-26] MEDS ORDERED: INSU100I23 SC (13:27)
[2019-06-26] MEDS ORDERED: METF-399 PO (13:27)
[2019-06-26] MEDS ORDERED: OMEP40CA36 PO (13:28)
[2019-06-26] MEDS ORDERED: RT-ALBUTEROL/IPRATROPIUM 3 ML (DUONEB) VIAL IH PRN (13:30)
[2019-06-26] MEDS ORDERED: FLU QUADRIvalent (5+ YOA) 2019-2020 (AFLURIA) 0.5 ML IM ONE (14:00)
--- NOTE | 2019-06-26 14:08 | NUR ---
SPOKE WITH PT WELL CALLING [facility] AND GOING OVER THE EXT MED HIST TO COMPLETE THE MED REC. PT SAYS HE STARTED GOING TO RECENTLY PT WAS TAKEN OFF OF ALMOST ALL HIS MEDS. THE 3 I HAVE LISTED ON THE MED REC IS WHAT HE WAS ABLE TO TELL AND WHAT SHOWED AT [facility]. 03-30-2019 METFORMIN #60/30DS 04-06-2019 OMEPRAZOLE #30/30DS PT INDICATES HE DOES NOT TAKE ANY OTC MEDS.
--- NOTE | 2019-06-26 14:13 | History & Physical-Hospitalist ---
History of Present Illness HPI/Chief Complaint Pt is a 59yoCM with a PMH of HTN, IDDMII, HLD who presented to the ER duet o 5 day history of chest pain and shortness of breath. He denies any precipitating factors when this started or any other symptoms associated with it. He has not history of chest pain or previous episodes. He was very vague in his history and stated "I'm not admitting to anything" when asked for more details regarding his history. He does state that he has had "stomach problems" for the past 9 months. Could not elaborate further. He is an insulin-dependent diabetic who reports he takes insulin 3 times a day but he is not sure what kind. He also states he's been off his medicines for a while but could not indicate why. He is laying quite flat in bed and when asked to sit up to help with breathing he refused. He stated he wanted me to give him a sleeping pill to just "knock him out." Source: patient Date Seen 06/26/19 Time Seen by a Provider: 12:30 Attending Physician Chet Zavaleta MD PCP Yaw Womack MD Referring Physician Date of Admission Jun 26, 2019 at 12:46 Home Medications & Allergies Home Medications Reviewed patient Home Medication Reconciliation performed by pharmacy medication reconciliations hearing aid repair technician and/or nursing. Patients Allergies have been reviewed. Allergies Allergies Coded Allergies hydrocodone (Unverified Allergy, Unknown, hives, 02/08/19) aspirin (Unverified Adverse Reaction, Unknown, angioedema, 02/08/19) lisinopril (Unverified Adverse Reaction, Unknown, angioedema, 02/08/19) Past Ayvvjhx-Nnrurf-Cfqwqz Hx Past Med/Social Hx: Reviewed Nursing Past Med/Soc Hx Patient Social History Alcohol Use: Denies Use Recreational Drug Use: Yes (reported to ER but stated he "would not admit anything" to me) Drug of Choice: METH Smoking Status: Never a Smoker Former Smoker, Quit: Feb 21, 2004 Type Used: Cigarettes 2nd Hand Smoke Exposure: No Recent Foreign Travel: No Contact w/other who traveled: No Recent Hopitalizations: No Recent Infectious Disease Expo: No Past Medical History Surgeries: Orthopedic Cardiac: High Cholesterol, Hypertension Reproductive: No Endocrine: Diabetes, Insulin dep History of Blood Disorders: No Family History Reviewed Nursing Family Hx No Pertinent Family Hx Review of Systems Constitutional: see HPI EENTM: no symptoms reported Respiratory: No dyspnea on exertion, No orthopnea; short of breath Cardiovascular: chest pain Gastrointestinal: abdominal pain Genitourinary: no symptoms reported Musculoskeletal: no symptoms reported Skin: no symptoms reported Psychiatric/Neurological: No Symptoms Reported Physical Exam Physical Exam Vital Signs Vital Signs - First Documented 06/26/19 06/26/19 09:34 11:32 Temp 36.7 Pulse 115 Resp 18 B/P (MAP) 115/63 (80) Pulse Ox 92 O2 Delivery Nasal Cannula O2 Flow Rate 2.00 FiO2 55 Capillary Refill : Less Than 3 Seconds Height, Weight, BMI Height: 5'9.00" Weight: 251lbs. 0oz. 113.072263az; 35.95 BMI Method:Actual General Appearance: WD/WN, Chronically ill, Mild Distress HEENT: PERRL/EOMI, Moist Mucous Membranes; No Scleral Icterus (L), No Scleral Icterus (R) Respiratory: Accessory Muscle Use, Decreased Breath Sounds; No Rhonci, No Wheezing Cardiovascular: Regular Rate, Rhythm, No Murmur Gastrointestinal: Normal Bowel Sounds, Non Tender, Soft Extremity: No Calf Tenderness, No Pedal Edema Neurologic/Psychiatric: Alert, Oriented x3 Skin: Normal Color, Warm/Dry; No Mottled Results Results/Procedures Labs Laboratory Tests 06/26/19 09:45 06/27/19 02:50 Patient resulted labs reviewed. Imaging: Reviewed Imaging Films, Reviewed Imaging Report Assessment/Plan Admission Diagnosis Septic Shock Admission Status: Inpatient Order (span 2 midnights) Reason for Inpatient Admission: sepsis, pneumonia, ICU admit fluid resuscitation Assessment and Plan Septic Shock CAP Leukocytosis with tachycardia Left sided pneumonia Lactic acid 6.29 meeting septic shock criteria Received 30cc/kg bolus for ideal body weight due to obesity, focused exam done by me Ladarius Cruz and Anthony Pulm consulted appreciate recs IDDMII SSI A1c HTN HLD Chest Pain Cardiology consulted, appreciate recs BP per verbal report from [facility] was WNL Substance Abuse Denies use UDS + for meth Diagnosis/Problems Diagnosis/Problems (1) Septic shock (2) Insulin dependent diabetes mellitus Status: Chronic (3) Methamphetamine use Status: Acute (4) Pneumonia Status: Acute Qualifiers: Pneumonia type: due to unspecified organism Laterality: left Lung location: unspecified part of lung Qualified Codes: J18.9 - Pneumonia, unspecified organism (5) Uncontrolled diabetes mellitus Status: Acute Qualifiers: Diabetes mellitus type: type 2 Glycemic state: with hyperglycemia Qualified Codes: E11.65 - Type 2 diabetes mellitus with hyperglycemia (6) Uncontrolled hypertension Status: Acute (7) Non-compliance Status: Acute Clinical Quality Measures AMI/AHF: ASA po Prior to arrival: No DVT/VTE Risk/Contraindication: Risk Factor Score Per Nursin RFS Level Per Nursing on Admit: 4+=Very High CHET ZAVALETA MD Jun 26, 2019 14:13 POS
--- NOTE | 2019-06-26 15:06 | Consultation-Cardiology ---
HPI-Cardiology Cardiology Consultation: Date of Consultation 06/26/19 Time Seen by a Provider: 15:00 Date of Admission 06-26-19 Attending Physician Briana Guillaume MD Admitting Physician Yaw Womack MD Consulting Physician Golden Vides MD HPI: Chief Complaint: Progressive dyspnea Chest pain Mr. Hu is a 59 year old male admitted to ICU 10 from the ED with c/o progressive dyspnea with occ prod cough over the last 5 days. He reports sharp, stabbing, left sided chest pain over the last 5 days worse with inspiration. He reports it comes and goes. Describes it as mod in intensity. Localized. He reports progressive gen weakness. he denies any n/v/d. He reports chills. He denies any fever. No c/o LE swelling. No report of syncope or near syncope. Reports continued dyspnea, which may be somewhat better since admission. Review of Systems-Cardiology Review of Systems Constitutional: As described under HPI Eyes: No vision change Ears/Nose/Throat: No epistaxis, No recent hearing loss Respiratory: As described under HPI Cardiovascular: As described under HPI Gastrointestinal: No constipation, No diarrhea, No nausea, No vomiting Genitourinary: No dysuria, No hematuria Musculoskeletal: no symptoms reported Skin: No rash on exposed areas, No ulcerations on exposed areas Psychiatric/Neurological: No anxiety, No depression, No seizure, No focal weakn ess, No syncope Hematologic: No bleeding abnormalities IUL-Hclsdc-Hnbvqq Hx Patient Social History Alcohol Use: Denies Use Recreational Drug Use: Yes (reported to ER but stated he "would not admit anything" to me) Drug of Choice: METH Smoking Status: Never a Smoker Type Used: Cigarettes 2nd Hand Smoke Exposure: No Recent Foreign Travel: No Recent Infectious Disease Expo: No Past Medical History PMH As described under Assessment. Family Medical History Family Medical History: He reports his family all had "lung problems". No reported family h/o CAD. Allergies and Home Medications Allergies Coded Allergies: hydrocodone (Unverified Allergy, Unknown, hives, 02/08/19) aspirin (Unverified Adverse Reaction, Unknown, angioedema, 02/08/19) lisinopril (Unverified Adverse Reaction, Unknown, angioedema, 02/08/19) Home Medications Insulin Lispro 100 Unit/1 Ml Insuln.pen, 15 UNITS SC TIDWM, (Reported) Metformin HCl 1,000 Mg Tablet, 1,000 MG PO BID, (Reported) LAST FILLED 03-30-2019 #60 DAY SUPPLY Omeprazole 40 Mg Capsule.dr, 40 MG PO DAILY, (Reported) LAST FILLED 04-06-2019 #30DAY SUPPLY Physical Exam-Cardiology Physical Exam Vital Signs/I&O 06/26/19 06/26/19 06/26/19 06/26/19 20:00 20:00 21:00 22:00 Temp 37.1 Pulse 79 82 86 Resp 24 40 23 B/P (MAP) 119/74 (89) 121/78 (92) 117/60 (79) Pulse Ox 100 100 81 O2 Delivery Vapotherm Vapotherm Vapotherm Vapotherm O2 Flow Rate 40.00 40.00 40.00 40.00 40.00 40.00 30.00 FiO2 40 06/26/19 06/26/19 06/26/19 06/27/19 22:01 23:00 23:25 00:00 Temp 37.4 Pulse 82 84 Resp 30 34 B/P (MAP) 82/48 (59) 100/72 (81) Pulse Ox 93 97 98 O2 Delivery Vapotherm Vapotherm Vapotherm O2 Flow Rate 40.00 40.00 40.00 40.00 30.00 30.00 30.00 FiO2 40 06/27/19 06/27/19 06/27/19 06/27/19 00:00 01:00 01:00 01:55 Pulse 87 86 Resp 24 B/P (MAP) 108/63 (78) Pulse Ox 96 97 O2 Delivery Vapotherm Vapotherm Vapotherm O2 Flow Rate 40.00 40.00 40.00 30.00 FiO2 30 40 06/27/19 06/27/19 06/27/19 06/27/19 02:00 02:24 03:00 03:49 Temp 37.7 38.2 Pulse 85 85 Resp 26 24 B/P (MAP) 112/64 (80) 129/80 (96) Pulse Ox 97 98 O2 Delivery Vapotherm Vapotherm O2 Flow Rate 40.00 40.00 30.00 30.00 06/27/19 06/27/19 06/27/19 06/27/19 03:50 04:00 04:58 05:00 Temp 38.8 Pulse 80 80 Resp 23 36 B/P (MAP) 115/79 (91) 116/84 (95) Pulse Ox 98 100 O2 Delivery Vapotherm Vapotherm Vapotherm O2 Flow Rate 40.00 40.00 40.00 30.00 30.00 FiO2 30 06/27/19 06/27/19 06:00 06:48 Pulse 74 Resp 32 B/P (MAP) 113/80 (91) Pulse Ox 100 100 O2 Delivery Vapotherm Vapotherm O2 Flow Rate 40.00 40.00 30.00 FiO2 30 06/27/19 00:00 Intake Total 4835 ml Output Total 400 ml Balance 4435 ml Capillary Refill : Less Than 3 Seconds Constitutional: AAO x 3, well-developed, well-nourished HEENT: PERRL, hearing is well preserved, oral hygience is good Neck: No carotid bruit; carotid pulses are 2 + bilaterally Respiratory: chest expansion is symmetric, chest is bilaterally symmetric, other (fair air entry) Cardiovascular: regular rate-rhythm; No JVD; S1 and S2 Gastrointestinal: round, audible bowel sounds Extremities: no lower extremity edema bilateral Neurologic/Psychiatric: grossly intact (moves all extremities) Skin: No rash on exposed areas, No ulcerations on exposed areas Data Review Labs Laboratory Tests 06/26/19 09:45: White Blood Count 34.3*H, Red Blood Count 4.76, Hemoglobin 13.6, Hematocrit 40, Mean Corpuscular Volume 84, Mean Corpuscular Hemoglobin 29, Mean Corpuscular Hemoglobin Concent 34, Red Cell Distribution Width 14.5, Platelet Count 349, Mean Platelet Volume 10.1, Neutrophils (%) (Auto) 95H, Lymphocytes (%) (Auto) 4L , Monocytes (%) (Auto) 1, Eosinophils (%) (Auto) 0, Basophils (%) (Auto) 0, Neutrophils # (Auto) 32.6H, Lymphocytes # (Auto) 1.2, Monocytes # (Auto) 0.5, Eosinophils # (Auto) 0.0, Basophils # (Auto) 0.0, Neutrophils % (Manual) 61, Lymphocytes % (Manual) 2, Monocytes % (Manual) 0, Eosinophils % (Manual) 0, Basophils % (Manual) 0, Band Neutrophils 37, Blood Morphology Comment NORMAL, Prothrombin Time 17.7H, INR Comment 1.4, Activated Partial Thromboplast Time 36H , D-Dimer 1.81H, Sodium Level 129L, Potassium Level 4.3, Chloride Level 92L, Carbon Dioxide Level 22, Anion Gap 15H, Blood Urea Nitrogen 24H, Creatinine 1.82H, Estimat Glomerular Filtration Rate 38, BUN/Creatinine Ratio 13, Glucose Level 322H, Lactic Acid Level 6.29*H, Calcium Level 9.6, Corrected Calcium 10.1, Magnesium Level 1.6, Total Bilirubin 1.6H, Aspartate Amino Transf (AST/SGOT) 10, Alanine Aminotransferase (ALT/SGPT) 12, Alkaline Phosphatase 93, Myoglobin 176.6H, Troponin I 0.094H, B-Type Natriuretic Peptide 172.3H, Total Protein 7.4, Albumin 3.4 06/26/19 10:30: Blood Gas Puncture Site LRAD, Blood Gas Patient Temperature 36.7, Arterial Blood pH 7.49H, Arterial Blood Partial Pressure CO2 29L, Arterial Blood Partial Pressure O2 65L, Arterial Blood HCO3 22L, Arterial Blood Total CO2 23.1, Arterial Blood Oxygen Saturation 94, Arterial Blood Base Excess -0.8, Yvan Test YES-POS, Blood Gas Ventilator Setting NO, Blood Gas Inspired Oxygen 4 06/26/19 10:57: Urine Color YELLOW, Urine Clarity CLEAR, Urine pH 6, Urine Specific [place] 1.020, Urine Protein 3+H, Urine Glucose (UA) 4+H, Urine Ketones NEGATIVE, Urine Nitrite NEGATIVE, Urine Bilirubin NEGATIVE, Urine Urobilinogen NORMAL, Urine Leukocyte Esterase NEGATIVE, Urine RBC (Auto) 2+H, Urine RBC RARE, Urine WBC RARE, Urine Squamous Epithelial Cells 0-2, Urine Crystals NONE, Urine Bacteria TRACE, Urine Casts PRESENT, Urine Granular Casts 2-5H, Urine Mucus NEGATIVE, Urine Culture Indicated NO, Urine Opiates Screen NEGATIVE, Urine Oxycodone Screen NEGATIVE, Urine Methadone Screen NEGATIVE, Urine Propoxyphene Screen NEGA TIVE, Urine Barbiturates Screen NEGATIVE, Ur Tricyclic Antidepressants Screen NEGATIVE, Urine Phencyclidine Screen NEGATIVE, Urine Amphetamines Screen POSITIVEH, Urine Methamphetamines Screen POSITIVEH, Urine Benzodiazepines Screen NEGATIVE, Urine Cocaine Screen NEGATIVE, Urine Cannabinoids Screen NEGATIVE 06/26/19 12:02: Lactic Acid Level 4.44*H 06/26/19 15:00: Mean Blood Glucose 286H, Hemoglobin A1c 11.6H 06/26/19 16:27: Glucometer 419*H 06/26/19 17:23: Blood Gas Puncture Site L RAD, Blood Gas Patient Temperature 39.7, Arterial Blood pH 7.42, Arterial Blood Partial Pressure CO2 38, Arterial Blood Partial Pressure O2 70L, Arterial Blood HCO3 23, Arterial Blood Total CO2 24.3, Arterial Blood Oxygen Saturation 91L, Arterial Blood Base Excess -0.1, Yvan Test YES- POS, Blood Gas Ventilator Setting NO, Blood Gas Inspired Oxygen 50% 06/26/19 23:06: Glucometer 168H 06/27/19 02:50: White Blood Count 20.3H, Red Blood Count 3.74L, Hemoglobin 10.6#L, Hematocrit 31L, Mean Corpuscular Volume 83, Mean Corpuscular Hemoglobin 28, Mean Corpuscular Hemoglobin Concent 34, Red Cell Distribution Width 14.6H, Platelet Count 251, Mean Platelet Volume 10.2, Neutrophils (%) (Auto) 95H, Lymphocytes (%) (Auto) 3L, Monocytes (%) (Auto) 2, Eosinophils (%) (Auto) 0, Basophils (%) (Auto) 0, Neutrophils # (Auto) 19.3H, Lymphocytes # (Auto) 0.6L, Monocytes # (Au to) 0.4, Eosinophils # (Auto) 0.0, Basophils # (Auto) 0.0, Sodium Level 132L, Potassium Level 4.0, Chloride Level 104, Carbon Dioxide Level 19L, Anion Gap 9, Blood Urea Nitrogen 22H, Creatinine 1.13, Estimat Glomerular Filtration Rate > 60, BUN/Creatinine Ratio 19, Glucose Level 175H, Lactic Acid Level 1.38, Calcium Level 7.8L, Corrected Calcium 8.9, Phosphorus Level 2.0L, Magnesium Level 1.8, Total Bilirubin 0.7, Aspartate Amino Transf (AST/SGOT) 15, Alanine Aminotransferase (ALT/SGPT) 15, Alkaline Phosphatase 72, Total Protein 5.6L, Albumin 2.6L, Triglycerides Level 153H, Cholesterol Level 55, LDL Cholesterol Direct 17, VLDL Cholesterol 31, HDL Cholesterol < 15L Radiology NAME: MAYTEGWENDOLYN [facility] REC#: [id number] PT STATUS: ADM IN : 1960 PHYSICIAN: SHREYAS ESCALANTE MD ADMIT DATE: 06/26/19/ICU Signed Date of Exam: 06/26/19 CHEST 1 VIEW, AP/PA ONLY INDICATION: Chest pain. COMPARISON: 02/06/2019 TECHNIQUE: Single frontal radiograph of the chest dated 06/26/2019. FINDINGS: The cardiac silhouette is at the upper limits of normal in size, though stable. No significant pulmonary vascular congestion. Extensive opacities have developed overlying the left mid and upper lung, predominantly peripherally. The right lung remains clear. No significant pleural effusion. No pneumothorax. No acute osseous abnormality. IMPRESSION: Interval development of extensive left-sided pulmonary opacities, possibly related to underlying pneumonia. Recommend clinical correlation. Additionally, followup radiographs are recommended to ensure resolution as additional etiologies, including malignancy cannot be excluded. Dictated by: Dictated on workstation # [id number] Dict: 06/26/19 1022 Trans: 06/26/19 1312 Interpreted by: KANE HENLEY MD Electronically signed by: KANE HENLEY MD 06/26/19 1312 NAME: GWENDOLYN HU Luis [facility] REC#: [id number] PT STATUS: ADM IN : 1960 PHYSICIAN: SHREYAS ESCALANTE MD ADMIT DATE: 06/26/19/ICU Draft Date of Exam:06/26/19 CT ANGIO CHEST W PROCEDURE: CT angiography of the chest with contrast. TECHNIQUE: Multiple contiguous axial images were obtained through the chest after uneventful bolus administration of intravenous contrast. 3D reconstructed CTA MIP acquisitions were also performed. Auto Exposure Controls were utilized during the CT exam to meet ALARA standards for radiation dose reduction. INDICATION: Chest pain and shortness of air. COMPARISON: None. FINDINGS: There is no evidence of acute pulmonary embolus to the first subsegmental division of the pulmonary arteries. The thoracic aorta is suboptimally opacified but appears to be normal in course and caliber. There is mild scattered calcified aortic atherosclerosis. The heart does appear mildly enlarged. There is no large pericardial effusion. Several prominent appearing mediastinal lymph nodes are identified. A reference lymph node is identified within the anterior mediastinal fat and measures 1.7 x 2 cm (image 45, series 3). The left hilum is obscured by airspace disease within the left lung. There is no abnormal right hilar adenopathy. No abnormal lymph nodes are seen within the axilla. Evaluation of the lung davila demonstrates a large area of dense consolidation involving the left upper lobe. There is also a small left effusion and minimal atelectasis of the left lower lobe. The right lung is partially obscured by motion artifact but is otherwise clear. There is no large effusion or pneumothorax on the right. Pulmonary nodules may be obscured by the pulmonary parenchymal disease. The osseous structures show moderate multilevel degenerative changes. The included portions of the upper abdomen show a moderate hiatal hernia. IMPRESSION: 1. No evidence of acute pulmonary embolus. 2. Large area of dense consolidation of the left upper lobe, concerning for alveolar pneumonia. A followup CT chest after an appropriate course of anabiotic therapy is recommended to exclude underlying pulmonary nodule or mass. 3. Small left effusion. 4. Mild cardiomegaly with mild scattered calcified aortic atherosclerosis. 5. Multiple enlarged mediastinal lymph nodes, possibly reactive. Again, followup is advised. Dictated on workstation # [id number] Dict: 06/26/19 1241 Trans: 06/26/19 1251 [id number] Interpreted by: ODALIS MARTINEZ MD Electronically signed by: ECG Impression ECG Initial ECG Rhythm: S.Tach A/P-Cardiology Assessment/Admission Diagnosis Chest discomfort of undetermined etiology Mildly elevated troponin likely Type 2 AL r/t pneumonia, renal insufficiency and hypoxia Pneumonia with sepsis - management per medical/pulmonary services Acute renal insufficiency Large area of dense consolidation of the left upper lobe, concerning for alveolar pneumonia. Small left effusion. Mild cardiomegaly with mild scattered calcified aortic atherosclerosis. Multiple enlarged mediastinal lymph nodes, possibly reactive Per CTA of 06-26-19 (+) Methamphetamine use Hyponatremia HTN HLD DM Chronic abd pain - followed by his PCP COPD Quit smoking approx 20 yrs ago Discussion and Recomendations Non-specific chest discomfort of undetermined etiology Mildly elevated troponin, likely Type 2 AL Echocardiogram to eval structure Pneumonia with sepsis - management per medical/pulmonary services Monitor lab closely Add low dose BB to regimen as tolerated d/t sinus tachycardia - likely r/t pneumonia Further recs will be based on his hospital course We would like to thank medical services for this consult Clinical Quality Measures AMI/AHF: ASA po Prior to arrival: No DVT/VTE Risk/Contraindication: Risk Factor Score Per Nursin RFS Level Per Nursing on Admit: 4+=Very High GEOR[place]IA FERNANDES Jun 26, 2019 15:06 POS
--- NOTE | 2019-06-26 15:34 | Pulmonary Consultation ---
History of Present Illness History of Present Illness Date of Consultation 06/26/19 14:18 Time Seen by Provider: 14:18 Date of Admission History of Present Illness 59yo with hx of HTN, IDDMII, tobacco use, drug use presented to ED secondary to worsening sharp severe nonradiating midsternal CP and SOB over the last 4 days. UDS in ED is positive for methamphetamine. CXR shows large BANDAR pneumonia. Pt is agitated and confused. Very difficult to obtain info from patient. Per ED notes pt has been injecting methamphetamine. Allergies and Home Medications Allergies Coded Allergies: hydrocodone (Unverified Allergy, Unknown, hives, 02/08/19) aspirin (Unverified Adverse Reaction, Unknown, angioedema, 02/08/19) lisinopril (Unverified Adverse Reaction, Unknown, angioedema, 02/08/19) Home Medications Insulin Lispro 100 Unit/1 Ml Insuln.pen, 15 UNITS SC TIDWM, (Reported) Metformin HCl 1,000 Mg Tablet, 1,000 MG PO BID, (Reported) LAST FILLED 03-30-2019 #60/30 DAY SUPPLY Omeprazole 40 Mg Capsule.dr, 40 MG PO DAILY, (Reported) LAST FILLED 04-06-2019 #30/30DAY SUPPLY Past Xcnezaf-Jexoog-Yphtoy Hx Past Med/Social Hx: Reviewed Nursing Past Med/Soc Hx Patient Social History Alcohol Use: Denies Use Recreational Drug Use: Yes Drug of Choice: METH Smoking Status: Never a Smoker Type Used: Cigarettes Former Smoker, Quit: Feb 21, 2004 2nd Hand Smoke Exposure: No Recent Foreign Travel: No Contact w/Someone Who Travel: No Recent Infectious Disease Expo: No Recent Hopitalizations: No Past Medical History Surgeries: Yes (BONE GRAFT TO RT WRIST FROM HIP) Orthopedic Respiratory: Yes COPD Cardiac: Yes Hypertension Neurological: Yes (SUSPECTED PERIPHERAL NEUROPATHY) Reproductive Disorders: No Genitourinary: No Gastrointestinal: Yes (CHRONIC GI COMPLAINTS) Musculoskeletal: Yes (CHRONIC GENERALIZED PAIN COMPLAINTS, ESPECIALLY TO LEGS AND FEET) Endocrine: Yes (OBESE; EXTERME NON-COMPLIANCE IN ALL ASPECTS OF CARE) Diabetes, Insulin dep HEENT: No Cancer: No Psychosocial: No Integumentary: No Blood Disorders: No Review of Systems Time Seen by Provider: 06:23 Sepsis Event Evaluation Height, Weight, BMI Height: 5'9.00" Weight: 251lbs. 0oz. 113.208522gu; 35.95 BMI Method:Actual Exam Exam Vital Signs Date Time Temp Pulse Resp B/P (MAP) Pulse Ox O2 Delivery O2 Flow Rate FiO2 06/26/19 13:15 97 06/26/19 13:05 36.7 99 18 149/97 90 Nasal Cannula 4.00 06/26/19 12:40 36.3 06/26/19 11:32 95 Vapotherm 40.00 55 06/26/19 10:19 90 Nasal Cannula 4.00 06/26/19 09:53 Nasal Cannula 2.00 06/26/19 09:34 36.7 115 18 92 Nasal Cannula 2.00 Height & Weight Height: 5'9.00" Weight: 251lbs. 0oz. 113.762130ke; 35.95 BMI Method:Actual General Appearance: Moderate Distress, Obese HEENT: Normal ENT Inspection Neck: Normal Inspection Respiratory: Decreased Breath Sounds, Respiratory Distress, Rhonci Cardiovascular: Regular Rate, Rhythm, No Murmur Capillary Refill: Less Than 3 Seconds Extremity: Normal Capillary Refill, Normal Inspection, Normal Range of Motion Neurologic/Psychiatric: Alert, No Motor/Sensory Deficits, Disoriented Skin: Normal Color, Warm/Dry Results Lab Laboratory Tests 06/26/19 09:45 Assessment/Plan Assessment/Plan Severe Sepsis with BANDAR pneumonia -Currently on Rocephin and Azithromycin -- Change to Vanco zosyn secondary to IVDU and hx of COPD. -Patten cultures pending -Check echo Lethargic -Check ABG CP probably secondary to pneumonia -Cardiology also following NSTEMI type II LAINEY -Monitor -IVF Methamphetamine use -Education Tobacco use -Education COPD hx -SVNs - AMINAH VÁSQUEZ DO Jun 26, 2019 15:34 POS
[2019-06-26] MEDS: RT-ALBUTEROL/IPRATROPIUM 3 ML (DUONEB) VIAL IH SCH ×2 (16:00→18:04)
--- NOTE | 2019-06-26 16:39 | NUR ---
THIS NURSE NOTIFIED DR ZIMMER OF PT TEMP OF 39.3, BLOOD SUGAR OF 414, AND HIGH RISK FOR DVT. ORDERS GIVEN.
[2019-06-26] MEDS ORDERED: VANCOMYCIN INJECTION 1,000 MG in NS (IVPB) 250 ML IV SCH (16:45)
[2019-06-26] MEDS ORDERED: PHARMACY TO DOSE IV SCH (16:45)
[2019-06-26] MEDS ORDERED: PIPERACILLIN/TAZOBACTAM (BULK) 4.5 GM in NS (IVPB) 100 ML IV SCH (16:45)
--- NOTE | 2019-06-26 16:50 | NUR ---
CR 1.81; CR CL ~50; WT 110 KG; VANCO 2000 MG IV BOLUS THEN 1750 MG Q24H; TROUGH AFTER 2ND DOSE
[2019-06-26] MEDS ORDERED: guaiFENesin/DM (ROBITUSSIN DM) 10 ML UDC PO PRN (17:00)
[2019-06-26] MEDS ORDERED: IBUPROFEN TABLET 200 MG TAB PO PRN (17:00)
[2019-06-26] MEDS ORDERED: DOCUSATE SODIUM 100 MG (COLACE) CAP PO PRN (17:00)
[2019-06-26] MEDS ORDERED: POLYETHYLENE GLYCOL 17 GM (MIRALAX) PACK PO PRN (17:00)
[2019-06-26] MEDS ORDERED: ONDANSETRON 4 MG/2 ML (SDV) Z0FRAN IVP PRN (17:00)
[2019-06-26] MEDS ORDERED: PIPERACILLIN/TAZO 4.5 GM/NS 100 ML IV NR ×2 (17:00)
[2019-06-26] MEDS ORDERED: VANCOMYCIN 2000 MG/NS 500 ML IVPB IV NR ×2 (17:00)
[2019-06-26] MEDS: inSUlin ASPART (NovoLOG) 1 UNIT/0.01 ML (CHARGE PER UNIT) SC SCH ×2 (17:11→21:00)
--- NOTE | 2019-06-26 17:14 | NUR ---
Initial visit by Chaplain Clau Glover: pt moaning and appeared to be in pain. Commodity Specialist support available as needed.
--- NOTE | 2019-06-26 17:26 | Consultation-Cardiology ---
HPI-Cardiology Cardiology Consultation: Date of Consultation 06/26/19 Time Seen by a Provider: 17:00 Date of Admission Attending Physician Briana Guillaume MD Admitting Physician Yaw Womack MD Consulting Physician RYNE DENNIS MD, MA, FACP, FACC, [facility] HPI: Chief Complaint: CC: Progressive shortness of breath; chest pain HPI Mr. Lozano is a 59 year old male admitted to ICU 10 from the ED with c/o progressive dyspnea with occ prod cough over the last 5 days. He reports sharp, stabbing, left sided chest pain over the last 5 days worse with inspiration. He reports it comes and goes. Describes it as mod in intensity. Localized. He reports progressive gen weakness. he denies any n/v/d. He reports chills. He denies any fever. No c/o LE swelling. No report of syncope or near syncope. Reports continued dyspnea, which may be somewhat better since admission. Review of Systems-Cardiology Review of Systems Constitutional: As described under HPI Eyes: No vision change Ears/Nose/Throat: No epistaxis, No recent hearing loss Respiratory: As described under HPI Cardiovascular: As described under HPI Gastrointestinal: No constipation, No diarrhea, No nausea, No vomiting Genitourinary: No dysuria, No hematuria Musculoskeletal: no symptoms reported Skin: No rash on exposed areas, No ulcerations on exposed areas Psychiatric/Neurological: No anxiety, No depression, No seizure, No focal weakness, No syncope Hematologic: No bleeding abnormalities BUX-Dabpry-Wfznpr Hx Patient Social History Alcohol Use: Denies Use Recreational Drug Use: Yes (reported to ER but stated he "would not admit anything" to me) Drug of Choice: METH Smoking Status: Never a Smoker Type Used: Cigarettes 2nd Hand Smoke Exposure: No Recent Foreign Travel: No Recent Infectious Disease Expo: No Past Medical History PMH As described under Assessment. Family Medical History Family Medical History: He reports his family all had "lung problems". No reported family h/o CAD. Allergies and Home Medications Allergies Coded Allergies: hydrocodone (Unverified Allergy, Unknown, hives, 02/08/19) aspirin (Unverified Adverse Reaction, Unknown, angioedema, 02/08/19) lisinopril (Unverified Adverse Reaction, Unknown, angioedema, 02/08/19) Home Medications Insulin Lispro 100 Unit/1 Ml Insuln.pen, 15 UNITS SC TIDWM, (Reported) Metformin HCl 1,000 Mg Tablet, 1,000 MG PO BID, (Reported) LAST FILLED 03-30-2019 #60 DAY SUPPLY Omeprazole 40 Mg Capsule.dr, 40 MG PO DAILY, (Reported) LAST FILLED 04-06-2019 #30DAY SUPPLY Patient Home Medication List Home Medication List Reviewed: Yes Physical Exam-Cardiology Physical Exam Vital Signs/I&O 06/26/19 06/26/19 06/26/19 06/26/19 09:34 09:53 10:19 11:32 Temp 36.7 Pulse 115 Resp 18 B/P (MAP) 115/63 (80) Pulse Ox 92 90 95 O2 Delivery Nasal Cannula Nasal Cannula Nasal Cannula Vapotherm O2 Flow Rate 2.00 2.00 4.00 40.00 FiO2 55 06/26/19 06/26/19 06/26/19 06/26/19 12:40 13:05 13:13 13:13 Temp 36.3 36.7 Pulse 99 Resp 18 B/P (MAP) 149/97 Pulse Ox 90 96 O2 Delivery Nasal Cannula Vapotherm Vapotherm O2 Flow Rate 4.00 40.00 40.00 50.00 FiO2 50 06/26/19 06/26/19 06/26/19 06/26/19 13:15 13:15 14:00 15:00 Pulse 97 100 96 97 B/P (MAP) 136/77 (96) 137/95 (109) 145/86 (105) O2 Delivery Vapotherm Vapotherm Vapotherm O2 Flow Rate 40.00 40.00 40.00 50.00 50.00 50.00 06/26/19 06/26/19 16:00 17:00 Pulse 101 101 B/P (MAP) 142/73 (96) 160/85 (110) O2 Delivery Vapotherm Vapotherm O2 Flow Rate 40.00 40.00 50.00 50.00 Capillary Refill : Less Than 3 Seconds Constitutional: AAO x 3, well-developed, well-nourished HEENT: PERRL, hearing is well preserved, oral hygience is good Neck: No carotid bruit; carotid pulses are 2 + bilaterally Respiratory: chest expansion is symmetric, chest is bilaterally symmetric, other (fair air entry) Cardiovascular: regular rate-rhythm; No JVD; S1 and S2 Gastrointestinal: round, audible bowel sounds Extremities: no lower extremity edema bilateral Neurologic/Psychiatric: grossly intact (moves all extremities) Skin: No rash on exposed areas, No ulcerations on exposed areas Data Review Labs Laboratory Tests 06/26/19 09:45: White Blood Count 34.3*H, Red Blood Count 4.76, Hemoglobin 13.6, Hematocrit 40, Mean Corpuscular Volume 84, Mean Corpuscular Hemoglobin 29, Mean Corpuscular Hemoglobin Concent 34, Red Cell Distribution Width 14.5, Platelet Count 349, Mean Platelet Volume 10.1, Neutrophils (%) (Auto) 95H, Lymphocytes (%) (Auto) 4L , Monocytes (%) (Auto) 1, Eosinophils (%) (Auto) 0, Basophils (%) (Auto) 0, Neutrophils # (Auto) 32.6H, Lymphocytes # (Auto) 1.2, Monocytes # (Auto) 0.5, Eosinophils # (Auto) 0.0, Basophils # (Auto) 0.0, Neutrophils % (Manual) 61, Lymphocytes % (Manual) 2, Monocytes % (Manual) 0, Eosinophils % (Manual) 0, Basophils % (Manual) 0, Band Neutrophils 37, Blood Morphology Comment NORMAL, Prothrombin Time 17.7H, INR Comment 1.4, Activated Partial Thromboplast Time 36H , D-Dimer 1.81H, Sodium Level 129L, Potassium Level 4.3, Chloride Level 92L, Carbon Dioxide Level 22, Anion Gap 15H, Blood Urea Nitrogen 24H, Creatinine 1.82H, Estimat Glomerular Filtration Rate 38, BUN/Creatinine Ratio 13, Glucose Level 322H, Lactic Acid Level 6.29*H, Calcium Level 9.6, Corrected Calcium 10.1, Magnesium Level 1.6, Total Bilirubin 1.6H, Aspartate Amino Transf (AST/SGOT) 10, Alanine Aminotransferase (ALT/SGPT) 12, Alkaline Phosphatase 93, Myoglobin 176.6H, Troponin I 0.094H, B-Type Natriuretic Peptide 172.3H, Total Protein 7.4, Albumin 3.4 06/26/19 10:30: Blood Gas Puncture Site LRAD, Blood Gas Patient Temperature 36.7, Arterial Blood pH 7.49H, Arterial Blood Partial Pressure CO2 29L, Arterial Blood Partial Pressure O2 65L, Arterial Blood HCO3 22L, Arterial Blood Total CO2 23.1, Arterial Blood Oxygen Saturation 94, Arterial Blood Base Excess -0.8, Yvan Test YES-POS, Blood Gas Ventilator Setting NO, Blood Gas Inspired Oxygen 4 06/26/19 10:57: Urine Color YELLOW, Urine Clarity CLEAR, Urine pH 6, Urine Specific Holder[place] 1.020, Urine Protein 3+H, Urine Glucose (UA) 4+H, Urine Ketones NEGATIVE, Urine Nitrite NEGATIVE, Urine Bilirubin NEGATIVE, Urine Urobilinogen NORMAL, Urine Leukocyte Esterase NEGATIVE, Urine RBC (Auto) 2+H, Urine RBC RARE, Urine WBC RARE, Urine Squamous Epithelial Cells 0-2, Urine Crystals NONE, Urine Bacteria TRACE, Urine Casts PRESENT, Urine Granular Casts 2-5H, Urine Mucus NEGATIVE, Urine Culture Indicated NO, Urine Opiates Screen NEGATIVE, Urine Oxycodone Screen NEGATIVE, Urine Methadone Screen NEGATIVE, Urine Propoxyphene Screen NEGATIVE, Urine Barbiturates Screen NEGATIVE, Ur Tricyclic Antidepressants Scre en NEGATIVE, Urine Phencyclidine Screen NEGATIVE, Urine Amphetamines Screen POSITIVEH, Urine Methamphetamines Screen POSITIVEH, Urine Benzodiazepines Screen NEGATIVE, Urine Cocaine Screen NEGATIVE, Urine Cannabinoids Screen NEGATIVE 06/26/19 12:02: Lactic Acid Level 4.44*H 06/26/19 15:00: 06/26/19 16:27: Glucometer 419*H 06/26/19 16:49: A/P-Cardiology Assessment/Admission Diagnosis Chest discomfort of undetermined etiology Mildly elevated troponin likely Type 2 [place] r/t pneumonia, renal insufficiency and hypoxia Pneumonia with sepsis - management per Medical/Pulmonary services Acute renal insufficiency Large area of dense consolidation of the left upper lobe, concerning for alveolar pneumonia. Small left effusion. Mild cardiomegaly with mild scattered calcified aortic atherosclerosis. Multiple enlarged mediastinal lymph nodes, possibly reactive Per CTA of 06-26-19 (+) Methamphetamine use Hyponatremia HTN HLD DM Chronic abd pain - followed by his PCP COPD Quit smoking approx 20 yrs ago Discussion and Recomendations Echocardiogram to eval structure Pneumonia with sepsis - management per Medical/Pulmonary services Monitor lab closely Add low dose BB to regimen as tolerated d/t sinus tachycardia - likely r/t pneumonia Add low dose ASA Further recs will be based on his hospital course We would like to thank Medical Services for this consult Clinical Quality Measures AMI/AHF: ASA po Prior to arrival: No DVT/VTE Risk/Contraindication: Risk Factor Score Per Nursin RFS Level Per Nursing on Admit: 4+=Very High RYNE DENNIS MD FACP FAC CCDS Jun 26, 2019 17:26 POS
[2019-06-26 17:30] LABS: ABG BASE EXCESS -0.1 MMOL/L (-2.5-2.5); ABG OXYGEN SATURATION 91 % (94-100); ABG PCO2 38 MMHG (35-45); ABG PH 7.42 (7.37-7.43); ABG PO2 70 MMHG (79-93); ABG TCO2 24.3 MMOL/L (21.0-31.0)
[2019-06-26] MEDS: CALCIUM CARBONATE 500 MG (TUMS) TAB.CHEW PO PRN (17:30)
[2019-06-26 17:31] LABS: ALLENS TEST YES-POS
[2019-06-26 17:32] LABS: INSPIRED O2 50%; PATIENT TEMP 39.7; VENTILATOR NO
[2019-06-26] MEDS: ACETAMINOPHEN 325 MG TABLET PO PRN (17:35)
[2019-06-26] MEDS: meTOprolol 5 MG/5 ML (LOPRESSOR) VIAL IV SCH ×2 (17:36→23:09)
[2019-06-26] MEDS: DEXMEDETOMIDINE INJECTION 1,000 MCG in NS (IVPB) 240 ML IV SCH (18:04)
--- NOTE | 2019-06-26 21:56 | NUR ---
THIS RN TALKED TO PATIENT AND ASKED IF IT WAS OKAY TO PLACE NEW O2 PROBE AND TAKE PATIENT BLOOD SUGAR. RN ALSO ASKED PT TO URINATE PT HAS NOT HAD ANY URINE OUTPUT FOR THIS SHIFT. PT YELLED AT THIS RN TO "GET THE HELL AWAY FROM ME. LEAVE ME THE FUCK ALONE." THIS RN EDUCATED PT ON IMPORTANCE OF MONITORING BLOOD GLUCOSE, O2 SATS AND URINE OUTPUT. PT BECAME IRATE YELLING AT THIS RN. "I SAID TO GET THE HELL AWAY FROM ME!" THIS RN LEFT ROOM. WILL CONTINUE TO MONITOR.
--- NOTE | 2019-06-26 22:30 | NUR ---
RT, THIS RN AND ANOTHER RN AT BEDSIDE ATTEMPTING TO GET ACCURATE O2 SAT ON PT. PT PT YELLING AT STAFF TO "GET THE HELL AWAY FROM ME AND QUIT WAKING ME UP." WILL CONTINUE TO MONITOR.
[2019-06-26] MEDS: PIPERACILLIN/TAZO 4.5 GM/NS 100 ML IV SCH ×2 (23:09)
--- NOTE | 2019-06-26 23:36 | NUR ---
PT HAS HAD NO URINE OUTPUT FOR THIS SHIFT. THIS RN ASKED PT TO ATTEMPT TO URINATE. EDUCATED PT ON IMPORTANCE OF ACCURATE I/O'S. PATIENT REFUSED. THIS RN ASKED PT IF A MAHAN CATH COULD BE PLACED. PT STATED "NO YOU CANNOT PUT A CATHETER IN, NOW LEAVE ME THE HELL ALONE." WILL CONTINUE TO MONITOR.
[2019-06-27] VITALS (25 sets, daily range): BP systolic 80–163; BP diastolic 48–97
--- NOTE | 2019-06-27 01:08 | NUR ---
PT AWAKE AND REQUESTING REMERON MEDICATION FOR NIGHTMARES. ENCOURAGED PT TO USE URINAL. PT REFUSED. WILL CONTINUE TO MONITOR.
--- NOTE | 2019-06-27 01:20 | NUR ---
E-ICU FELICIA'D IN AT THIS TIME. PT C/O OF CHRONIC ABD PAIN RATING PAIN 4/10. THIS RN INFORMED E-ICU THAT PATIENT HAS HAD NO URINE OUTPUT AND IS UNWILLING TO ATTEMPT TO URINATE, TO LET THIS RN BLADDER SCAN OR PLACE A CATHETER. DR BOLTON WITH E-ICU TALKED PT INTO LETTING THIS RN BLADDER SCAN. SCAN SHOWED GREATER THAT 350ML. PT SAT ON SIDE OF BED TO URINATE. URINATED 100ML. PT REFUSED TO STAND UP. PT STATED THAT "STANDING UP WILL MAKE ME HAVE TO PEE MORE." WILL CONTINUE TO MONITOR.
[2019-06-27] MEDS: fentaNYL INJECTION 100 MCG/2 ML AMP IVP PRN ×2 (01:36→15:00)
[2019-06-27 03:19] LABS: BASOPHILS % (AUTO) 0 % (0-10); EOSINOPHILS % (AUTO) 0 % (0-10); HEMATOCRIT 31 % (40-54); HEMOGLOBIN 10.6 G/DL (13.3-17.7); LYMPHOCYTES # (AUTO) 0.6 X 10^3 (1.0-4.0); LYMPHOCYTES % (AUTO) 3 % (12-44); MEAN CORPUSCULAR HEMOGLOBIN 28 PG (25-34); MEAN CORPUSCULAR HGB CONC 34 G/DL (32-36); MEAN CORPUSCULAR VOLUME 83 FL (80-99); MEAN PLATELET VOLUME 10.2 FL (7.4-10.4); MONOCYTES # (AUTO) 0.4 X 10^3 (0.0-1.0); MONOCYTES % (AUTO) 2 % (0-12); NEUTROPHILS # (AUTO) 19.3 X 10^3 (1.8-7.8); NEUTROPHILS % (AUTO) 95 % (42-75); PLATELET COUNT 251 10^3/uL (130-400); RED CELL DISTRIBUTION WIDTH 14.6 % (10.0-14.5); WHITE BLOOD COUNT 20.3 10^3/uL (4.3-11.0)
[2019-06-27 03:47] LABS: ALANINE AMINOTRANSFERASE 15 U/L (0-55); ALBUMIN 2.6 GM/DL (3.2-4.5); ALKALINE PHOSPHATASE 72 U/L (40-136); BILIRUBIN,TOTAL 0.7 MG/DL (0.1-1.0); BUN/CREATININE RATIO 19; CALCIUM 7.8 MG/DL (8.5-10.1); CARBON DIOXIDE 19 MMOL/L (21-32); CHLORIDE 104 MMOL/L (98-107); CHOLESTEROL 55 MG/DL (< 200); CREATININE SERUM 1.13 MG/DL (0.60-1.30); GFR ESTIMATED > 60; GLUCOSE 175 MG/DL (70-105); HDL CHOLESTEROL < 15 MG/DL (40-60); MAGNESIUM 1.8 MG/DL (1.6-2.4); SODIUM 132 MMOL/L (135-145); TOTAL PROTEIN 5.6 GM/DL (6.4-8.2); TRIGLYCERIDES 153 MG/DL (<150); VLDL CHOLESTEROL 31 MG/DL (5-40)
--- NOTE | 2019-06-27 04:04 | NUR ---
PT REFUSED MRSA SWAB.
--- NOTE | 2019-06-27 04:24 | Pulmonary Progress Note ---
Subjective Time Seen by a Provider: 04:29 Subjective/Events-last exam RN states pt is refusing multiple things. Sepsis Event Evaluation Height, Weight, BMI Height: 5'9.00" Weight: 251lbs. 0oz. [id number]; 35.95 BMI Method:Actual Focused Exam Lactate Level 06/26/19 09:45: Lactic Acid Level 6.29*H 06/26/19 12:02: Lactic Acid Level 4.44*H 06/27/19 02:50: Lactic Acid Level 1.38 Lactic Acid Level Laboratory Tests Test 06/27/19 02:50 Lactic Acid Level 1.38 MMOL/L (0.50-2.00) Exam Exam Vital Signs Date Time Temp Pulse Resp B/P (MAP) Pulse Ox O2 Delivery O2 Flow Rate FiO2 06/27/19 04:00 80 23 115/79 (91) 98 Vapotherm 40.00 30.00 06/27/19 03:50 Vapotherm 40.00 30 06/27/19 03:49 38.2 06/27/19 03:00 85 24 129/80 (96) 98 Vapotherm 40.00 30.00 06/27/19 02:24 37.7 06/27/19 02:00 85 26 112/64 (80) 97 Vapotherm 40.00 30.00 06/27/19 01:55 97 Vapotherm 40.00 40 06/27/19 01:00 86 24 108/63 (78) 96 Vapotherm 40.00 30.00 06/27/19 01:00 87 06/27/19 00:00 Vapotherm 40.00 30 06/27/19 00:00 84 34 100/72 (81) 98 Vapotherm 40.00 30.00 06/26/19 23:25 37.4 40.00 30.00 06/26/19 23:00 82 30 82/48 (59) 97 Vapotherm 40.00 30.00 06/26/19 22:01 93 Vapotherm 40.00 40 06/26/19 22:00 86 23 117/60 (79) 81 Vapotherm 40.00 30.00 06/26/19 21:00 82 40 121/78 (92) 100 Vapotherm 40.00 40.00 06/26/19 20:00 Vapotherm 40.00 40 06/26/19 20:00 37.1 79 24 119/74 (89) 100 Vapotherm 40.00 40.00 06/26/19 19:00 84 06/26/19 18:44 Vapotherm 40.00 40.00 06/26/19 18:30 38.5 06/26/19 18:08 38.0 06/26/19 18:04 96 Vapotherm 40.00 50 06/26/19 18:00 38.8 06/26/19 18:00 93 32 134/84 (101) 100 Vapotherm 40.00 50.00 06/26/19 17:35 39.7 06/26/19 17:00 39.0 06/26/19 17:00 101 160/85 (110) Vapotherm 40.00 50.00 06/26/19 16:00 39.3 06/26/19 16:00 101 142/73 (96) Vapotherm 40.00 50.00 06/26/19 16:00 95 Vapotherm 50 06/26/19 15:00 97 145/86 (105) Vapotherm 40.00 50.00 06/26/19 14:00 96 137/95 (109) Vapotherm 40.00 50.00 06/26/19 13:30 95 Vapotherm 40.00 06/26/19 13:15 100 136/77 (96) Vapotherm 40.00 50.00 06/26/19 13:15 37.1 06/26/19 13:15 97 06/26/19 13:13 96 Vapotherm 40.00 50 06/26/19 13:13 Vapotherm 40.00 50.00 06/26/19 13:05 36.7 99 18 149/97 90 Nasal Cannula 4.00 06/26/19 12:40 36.3 06/26/19 11:32 95 Vapotherm 40.00 55 06/26/19 10:19 90 Nasal Cannula 4.00 06/26/19 09:53 Nasal Cannula 2.00 06/26/19 09:34 36.7 115 18 115/63 (80) 92 Nasal Cannula 2.00 I & O 06/27/19 07:00 Intake Total 4885 ml Output Total 500 ml Balance 4385 ml Height & Weight Height: 5'9.00" Weight: 251lbs. 0oz. 113.683478sg; 35.95 BMI Method:Actual General Appearance: Moderate Distress, Obese HEENT: Normal ENT Inspection Neck: Normal Inspection Respiratory: Decreased Breath Sounds, Respiratory Distress Cardiovascular: Regular Rate, Rhythm, No Murmur Capillary Refill: Less Than 3 Seconds Extremity: Normal Capillary Refill, Normal Inspection, Normal Range of Motion Neurologic/Psychiatric: Alert, No Motor/Sensory Deficits, Depressed Affect Skin: Normal Color, Warm/Dry Results Lab Laboratory Tests 06/26/19 09:45 06/27/19 02:50 Assessment/Plan Assessment/Plan Severe Sepsis with BANDRA pneumonia -Continue Vanco zosyn -Patten cultures pending -echo pending Metabolic encephalopathy/ agitation -Currently on Precedex -Add haldol PRN and Risperdal Lethargic -Monitor CP probably secondary to pneumonia -Cardiology also following NSTEMI type II LAINEY -Monitor -IVF Methamphetamine use -Education Tobacco use -Education COPD hx -[place]ita - AMINAH VÁSQUEZ DO Jun 27, 2019 04:24 POS
[2019-06-27] MEDS ORDERED: LACTATED RINGERS 1,000 ML IV SCH (04:30)
[2019-06-27] MEDS ORDERED: HALOPERIDOL 5 MG/ML (HALDOL) AMP IV PRN (04:30)
[2019-06-27] MEDS ORDERED: LACTATED RINGERS 2,000 ML IV ONE (04:45)
[2019-06-27] MEDS: ACETAMINOPHEN 325 MG TABLET PO PRN ×3 (04:58→21:02)
[2019-06-27] MEDS: LACTATED RINGERS 1,000 ML IV SCH ×4 (05:30→23:47)
[2019-06-27] MEDS: meTOprolol 5 MG/5 ML (LOPRESSOR) VIAL IV SCH ×4 (05:30→23:47)
[2019-06-27] MEDS: POTASSIUM CL 10MEQ/50ML IVPB 50 ML IV SCH (05:30)
[2019-06-27] MEDS: MAGNESIUM 1 GM/100 ML IVPB 100 ML IV SCH (05:31)
[2019-06-27] MEDS: inSUlin ASPART (NovoLOG) 1 UNIT/0.01 ML (CHARGE PER UNIT) SC SCH ×4 (05:31→20:55)
[2019-06-27] MEDS: KCL 20 MEQ TAB (K-DUR) PO SCH (05:31)
[2019-06-27] MEDS: PIPERACILLIN/TAZO 4.5 GM/NS 100 ML IV SCH ×6 (06:39→22:16)
[2019-06-27] MEDS: RT-ALBUTEROL/IPRATROPIUM 3 ML (DUONEB) VIAL IH SCH ×4 (06:48→19:44)
--- NOTE | 2019-06-27 07:16 | Diagnostic Imaging Report ---
INDICATION: Pneumonia. COMPARISON: 06/26/2019 FINDINGS: 2 frontal radiograph views of the chest were obtained and show interval progression of consolidative airspace opacities throughout the left lung. Right lung remains relatively clear. Known small left effusion is obscured. There is no large effusion on the right. No pneumothorax is identified on either side. Cardiac silhouette is also now heavily obscured. Osseous structures show no acute adverse interval change. IMPRESSION: 1. Interval progression of left-sided infiltrates. Dictated by: Dictated on workstation # [id number]
--- NOTE | 2019-06-27 07:54 | NUR ---
PTD VANCOMYCIN LABS: SCR 1.13 (DOWN FROM 1.82 ON ADMIT) PLAN: VANCOMYCIN 2 GRAMS WAS GIVEN YESTERDAY FOR LOADING DOSE. WE WILL CHANGE TO 1,750MG IV BID BASED ON IMPROVED SCR. MONITOR URINE OUTPUT CLOSELY AND A VANCOMYCIN LEVEL WILL BE CHECKED ON 06/28 @ 0700.
[2019-06-27] MEDS: risperiDONE 1 MG (RisperDAL) TAB PO SCH ×2 (08:18→20:53)
--- NOTE | 2019-06-27 08:18 | Progress Note - Cardiology ---
Cardiology SOAP Progress Note Subjective: Up in bed. Continues to feel SOB, but feels somewhat better. Feels left sided chest discomfort is better from yesterday. No c/o palpitations. No c/o n/v/d. Objective: I&O/Vital Signs 06/27/19 06/27/19 06/27/19 06/27/19 04:58 05:00 06:00 06:48 Temp 38.8 Pulse 80 74 Resp 36 32 B/P (MAP) 116/84 (95) 113/80 (91) Pulse Ox 100 100 100 O2 Delivery Vapotherm Vapotherm Vapotherm O2 Flow Rate 40.00 40.00 40.00 30.00 30.00 FiO2 30 06/27/19 06/27/19 06/27/19 06/27/19 07:00 07:00 08:00 08:00 Temp 35.7 Pulse 73 73 Resp 30 B/P (MAP) 100/71 (81) Pulse Ox 100 O2 Delivery Vapotherm Vapotherm O2 Flow Rate 40.00 30.00 30.00 FiO2 30 06/27/19 06/27/19 06/27/19 06/27/19 08:00 09:00 10:00 10:41 Pulse 71 75 73 Resp 37 32 31 B/P (MAP) 102/63 (76) 80/48 (59) 97/73 (81) Pulse Ox 100 100 100 100 O2 Delivery Vapotherm Vapotherm Vapotherm Vapotherm O2 Flow Rate 40.00 40.00 40.00 20.00 30.00 30.00 30.00 FiO2 28 06/27/19 06/27/19 06/27/19 06/27/19 10:48 11:00 12:00 12:00 Temp 36.2 Pulse 78 Resp 22 B/P (MAP) 104/79 (87) Pulse Ox 100 O2 Delivery Vapotherm Vapotherm Vapotherm O2 Flow Rate 20.00 20.00 28.00 28.00 28.00 FiO2 30 06/27/19 06/27/19 06/27/19 06/27/19 12:00 13:00 13:00 14:00 Pulse 81 84 85 84 Resp 31 34 38 B/P (MAP) 136/86 (103) 125/80 (95) 123/79 (94) Pulse Ox 100 97 85 O2 Delivery Vapotherm Vapotherm Vapotherm O2 Flow Rate 20.00 20.00 20.00 28.00 28.00 28.00 06/27/19 06/27/19 06/27/19 14:18 15:00 16:00 Pulse 85 85 Resp 25 29 B/P (MAP) 131/79 (96) 121/75 (90) Pulse Ox 96 93 79 O2 Delivery Vapotherm Vapotherm Vapotherm O2 Flow Rate 20.00 20.00 20.00 28.00 28.00 FiO2 28 06/26/19 23:59 Intake Total 4835 ml Output Total 400 ml Balance 4435 ml Weight (Pounds): 251 Weight (Ounces): 0 Weight (Calculated Kilograms): 113.062480 Constitutional: AAO x 3, well-developed, well-nourished Respiratory: chest expansion is symmetric, chest is bilaterally symmetric, other (fair air entry) Cardiovascular: regular rate-rhythm; No JVD; S1 and S2 Gastrointestional: round, audible bowel sounds Extremities: no lower extremity edema bilateral Neurologic/Psychiatric: grossly intact (moves all extremities) Skin: No rash on exposed areas, No ulcerations on exposed areas Results/Procedures: Labs Laboratory Tests 06/26/19 17:23: Blood Gas Puncture Site L RAD, Blood Gas Patient Temperature 39.7, Arterial Blood pH 7.42, Arterial Blood Partial Pressure CO2 38, Arterial Blood Partial Pressure O2 70L, Arterial Blood HCO3 23, Arterial Blood Total CO2 24.3, Arterial Blood Oxygen Saturation 91L, Arterial Blood Base Excess -0.1, Yvan Test YES- POS, Blood Gas Ventilator Setting NO, Blood Gas Inspired Oxygen 50% 06/26/19 23:06: Glucometer 168H 06/27/19 02:50: White Blood Count 20.3H, Red Blood Count 3.74L, Hemoglobin 10.6#L, Hematocrit 31L, Mean Corpuscular Volume 83, Mean Corpuscular Hemoglobin 28, Mean Corpuscular Hemoglobin Concent 34, Red Cell Distribution Width 14.6H, Platelet Count 251, Mean Platelet Volume 10.2, Neutrophils (%) (Auto) 95H, Lymphocytes (%) (Auto) 3L, Monocytes (%) (Auto) 2, Eosinophils (%) (Auto) 0, Basophils (%) (Auto) 0, Neutrophils # (Auto) 19.3H, Lymphocytes # (Auto) 0.6L, Monocytes # (Auto) 0.4, Eosinophils # (Auto) 0.0, Basophils # (Auto) 0.0, Sodium Level 132L, Potassium Level 4.0, Chloride Level 104, Carbon Dioxide Level 19L, Anion Gap 9, Blood Urea Nitrogen 22H, Creatinine 1.13, Estimat Glomerular Filtration Rate > 60, BUN/Creatinine Ratio 19, Glucose Level 175H, Lactic Acid Level 1.38, Calcium Level 7.8L, Corrected Calcium 8.9, Phosphorus Level 2.0L, Magnesium Level 1.8, Total Bilirubin 0.7, Aspartate Amino Transf (AST/SGOT) 15, Alanine Aminotransferase (ALT/SGPT) 15, Alkaline Phosphatase 72, Total Protein 5.6L, Albumin 2.6L, Triglycerides Level 153H, Cholesterol Level 55, LDL Cholesterol Direct 17, VLDL Cholesterol 31, HDL Cholesterol < 15L, Serum Alcohol < 10 06/27/19 09:20: Troponin I 0.137H 06/27/19 10:57: 06/27/19 11:19: Glucometer 225H Microbiology 06/26/19 Blood Culture - Preliminary, Resulted No growth 06/27/19 Influenza Types A,B Antigen ([facility]) - Final, Complete Procedures NAME: GWENDOLYN HU Luis [facility] REC#: [id number] PT STATUS: ADM IN : 1960 PHYSICIAN: CHET ZAVALETA MD ADMIT DATE: 06/26/19/ICU Signed Date of Exam: 06/27/19 CHEST 1 VIEW, AP/PA ONLY INDICATION: Pneumonia. COMPARISON: 06/26/2019 FINDINGS: 2 frontal radiograph views of the chest were obtained and show interval progression of consolidative airspace opacities throughout the left lung. Right lung remains relatively clear. Known small left effusion is obscured. There is no large effusion on the right. No pneumothorax is identified on either side. Cardiac silhouette is also now heavily obscured. Osseous structures show no acute adverse interval change. IMPRESSION: 1. Interval progression of left-sided infiltrates. Dictated by: Dictated on workstation # [id number] Dict: 06/27/19 0713 Trans: 06/27/19 0800 Interpreted by: ODALIS MARTINEZ MD Electronically signed by: ODALIS MARTINEZ MD 06/27/19 0800 A/P: Assessment: Chest discomfort of undetermined etiology - improved Mildly elevated troponin likely Type 2 [place] r/t pneumonia, renal insufficiency and hypoxia Dilated cardiomyopathy. Echo of 06/27/19: LVEF 35-40%, mild enlargement of LA, grade 2 diastolic dysfunction, mild to mod MR & TR, RVSP 22 mmHg Pneumonia with sepsis - management per Medical/Pulmonary services Acute renal insufficiency -improving Large area of dense consolidation of the left upper lobe, concerning for alveolar pneumonia. Small left effusion. Mild cardiomegaly with mild scattered calcified aortic atherosclerosis. Multiple enlarged mediastinal lymph nodes, possibly reactive Per CTA of 06-26-19 (+) Methamphetamine use Hyponatremia - improving HTN HLD DM Chronic abd pain - followed by his PCP COPD Quit smoking approx 20 yrs ago Plan: Echocardiogram to eval structure - pending Pneumonia with sepsis - management per Medical/Pulmonary services Monitor lab closely Continue low dose BB to regimen as tolerated d/t sinus tachycardia - likely r/t pneumonia Continue low dose ASA DVT prophylaxis Physician Assessment Physician Assessment Still short of breath. Does not report cp. Has gen malaise and weakness. Denies palp or syncope Lungs: dec bs at bases Cor: reg Ext: no c/c, mild edema A&R * As documented in our note above that I updated and as noted below * Treat cardiomyopathy with JACKIE-inhib and bb. Diuretics as needed * Monitor labs * Consider eval for sleep apnea * I discussed his case in detail with Dr Parks today Clinical Quality Measures AMI/AHF: ASA po Prior to arrival: GEORGIA Phillips MAMMOGRAPHY TECHNICIAN Jun 27, 2019 08:18 RYNE AREVALO MD FACP FAC CCDS Jun 27, 2019 16:45 POS
[2019-06-27] MEDS: DEXMEDETOMIDINE INJECTION 1,000 MCG in NS (IVPB) 240 ML IV SCH (08:22)
[2019-06-27] MEDS ORDERED: ASPIRIN 81 MG CHEW (CHILDREN'S ASA) PO SCH (09:00)
[2019-06-27] MEDS ORDERED: AZITHROMYCIN 250 MG TAB (ZITHROMAX) PO SCH (09:00)
--- NOTE | 2019-06-27 09:06 | Progress Note - Hospitalist ---
Subjective HPI/CC On Admission Date Seen by Provider: Jun 27, 2019 Time Seen by Provider: 09:01 Pt is a 59yoCM with a PMH of HTN, IDDMII, HLD who presented to the ER duet o 5 day history of chest pain and shortness of breath. He denies any precipitating factors when this started or any other symptoms associated with it. He has not h istory of chest pain or previous episodes. He was very vague in his history and stated "I'm not admitting to anything" when asked for more details regarding his history. He does state that he has had "stomach problems" for the past 9 months. Could not elaborate further. He is an insulin-dependent diabetic who reports he takes insulin 3 times a day but he is not sure what kind. He also states he's been off his medicines for a while but could not indicate why. He is laying quite flat in bed and when asked to sit up to help with breathing he refused. He stated he wanted me to give him a sleeping pill to just "knock him out. Subjective/Events-last exam Pt reports feeling better. Quite sleepy but otherwise no complaints. Discussed noncompliance overnight and strongly advised cooperating with nursing care to make sure he gets the highest level of care for his safety. He agrees. Focused Exam Lactate Level 06/26/19 09:45: Lactic Acid Level 6.29*H 06/26/19 12:02: Lactic Acid Level 4.44*H 06/27/19 02:50: Lactic Acid Level 1.38 Objective Exam Vital Signs Vital Signs Date Time Temp Pulse Resp B/P (MAP) Pulse Ox O2 Delivery O2 Flow Rate FiO2 06/27/19 06:48 100 Vapotherm 40.00 30 06/27/19 06:00 74 32 113/80 (91) 06/27/19 04:58 38.8 Capillary Refill : Less Than 3 Seconds General Appearance: Chronically ill, Mild Distress, Obese Respiratory: Lungs Clear, No Respiratory Distress Cardiovascular: Regular Rate, Rhythm, No Murmur Extremity: No Calf Tenderness, No Pedal Edema Neurologic/Psychiatric: Alert, Oriented x3 Results/Procedures Lab Laboratory Tests 06/26/19 09:45 06/27/19 02:50 Patient resulted labs reviewed. Imaging: Reviewed Imaging Films, Reviewed Imaging Report Assessment/Plan Assessment and Plan Assess & Plan/Chief Complaint Septic Shock CAP Acute Hypoxemic Respiratory Failure Febrile overnight, switched to Vanc and Zosyn Await cultures Low threshold for intubation Pulm consulted appreciate recs Lactic acidosis resolved IDDMII SSI A1c 11.6 Will add Levemir HTN HLD Chest Pain Improved, add troponin to am labs BP on low/normotensive, trend Normocytic anemia Likely dilutional Trend Substance Abuse Denies use UDS + for meth Will add alcohol level to admission labs Reportedly uses IV meth- echo ordered Diagnosis/Problems Diagnosis/Problems (1) Septic shock (2) Insulin dependent diabetes mellitus Status: Chronic (3) Methamphetamine use Status: Acute (4) Pneumonia Status: Acute Qualifiers: Pneumonia type: due to unspecified organism Laterality: left Lung location: unspecified part of lung Qualified Codes: J18.9 - Pneumonia, unspecified organism (5) Uncontrolled diabetes mellitus Status: Acute Qualifiers: Diabetes mellitus type: type 2 Glycemic state: with hyperglycemia Q ualified Codes: E11.65 - Type 2 diabetes mellitus with hyperglycemia (6) Uncontrolled hypertension Status: Acute (7) Non-compliance Status: Acute Clinical Quality Measures AMI/AHF: ASA po Prior to arrival: No DVT/VTE Risk/Contraindication: Risk Factor Score Per Nursin RFS Level Per Nursing on Admit: 4+=Very High CHET ZAVALETA MD Jun 27, 2019 09:06 POS
[2019-06-27] MEDS: VANCOMYCIN 1,750 MG/NS 500 ML IVPB IV SCH ×4 (09:09→19:31)
[2019-06-27] MEDS ORDERED: cefTRIAXone 1,000 MG/SWFI 10 ML IV PUSH IV SCH ×2 (10:30)
[2019-06-27] MEDS ORDERED: AZITHROMYCIN 500 MG/NS 250 ML IVPB IV SCH ×2 (11:30)
[2019-06-27] MEDS: ENOXAPARIN 40 MG/0.4 ML (LOVENOX) SYR SC SCH (12:25)
[2019-06-27] MEDS ORDERED: VANCOMYCIN 1,750 MG/NS 500 ML IVPB IV SCH ×2 (17:00)
[2019-06-27] MEDS: CALCIUM CARBONATE 500 MG (TUMS) TAB.CHEW PO PRN (17:14)
[2019-06-28] VITALS (25 sets, daily range): BP systolic 102–190; BP diastolic 68–112
[2019-06-28] MEDS: fentaNYL INJECTION 100 MCG/2 ML AMP IVP PRN (03:03)
[2019-06-28 03:48] LABS: HEMOGLOBIN 10.5 G/DL (13.3-17.7); MEAN PLATELET VOLUME 10.7 FL (7.4-10.4); RED CELL DISTRIBUTION WIDTH 14.9 % (10.0-14.5)
--- NOTE | 2019-06-28 04:32 | Pulmonary Progress Note ---
CORTEZ GONSALVES MED STUDENT 06/28/19 0432: Subjective Date Seen by a Provider: Jun 28, 2019 Time Seen by a Provider: 04:26 Subjective/Events-last exam No acute events overnight. Patient reports that he did not sleep well due to his neuropathy in the lower extremities. He also reports feeling cold and feverish, but denies chills. He states that he is still experiencing shortness of breath but minimal cough. Sepsis Event Evaluation Height, Weight, BMI Height: 5'9.00" Weight: 251lbs. 0oz. [id number]; 35.95 BMI Method:Actual Focused Exam Lactate Level 06/26/19 09:45: Lactic Acid Level 6.29*H 06/26/19 12:02: Lactic Acid Level 4.44*H 06/27/19 02:50: Lactic Acid Level 1.38 Exam Exam Vital Signs Date Time Temp Pulse Resp B/P (MAP) Pulse Ox O2 Delivery O2 Flow Rate FiO2 06/28/19 04:00 36.7 Vapotherm 15.00 25.00 06/28/19 03:05 92 Vapotherm 15.00 25 06/28/19 03:05 36.5 Vapotherm 15.00 25.00 06/27/19 23:45 36.7 Vapotherm 15.00 25.00 06/27/19 23:20 93 Vapotherm 15.00 25 06/27/19 23:00 77 26 114/73 (87) 92 Vapotherm 15.00 25.00 06/27/19 22:00 78 22 112/74 (87) 92 Vapotherm 15.00 25.00 06/27/19 21:00 79 27 131/84 (100) 93 Vapotherm 15.00 25.00 06/27/19 20:00 77 18 107/73 (84) 94 Vapotherm 15.00 25.00 06/27/19 20:00 92 Vapotherm 15.00 25 06/27/19 19:46 Vapotherm 15.00 25.00 06/27/19 19:44 95 Vapotherm 15.00 25 06/27/19 19:30 36.4 28 103/73 (83) 92 Vapotherm 20.00 28.00 06/27/19 19:29 78 06/27/19 19:00 80 88/49 (62) 90 Vapotherm 20.00 28.00 06/27/19 18:27 37.7 06/27/19 18:00 87 126/68 (87) 92 Vapotherm 20.00 28.00 06/27/19 17:15 37.8 06/27/19 17:06 92 Vapotherm 20.00 28 06/27/19 17:00 95 22 163/97 (119) 79 Vapotherm 20.00 28.00 06/27/19 16:30 Vapotherm 28.00 30 06/27/19 16:00 85 29 121/75 (90) 79 Vapotherm 20.00 28.00 06/27/19 15:00 85 25 131/79 (96) 93 Vapotherm 20.00 28.00 06/27/19 14:18 96 Vapotherm 20.00 28 06/27/19 14:00 84 38 123/79 (94) 85 Vapotherm 20.00 28.00 06/27/19 13:00 85 06/27/19 13:00 84 34 125/80 (95) 97 Vapotherm 20.00 28.00 06/27/19 12:00 81 31 136/86 (103) 100 Vapotherm 20.00 28.00 06/27/19 12:00 36.2 06/27/19 12:00 Vapotherm 28.00 30 06/27/19 11:00 78 22 104/79 (87) 100 Vapotherm 20.00 28.00 06/27/19 10:48 Vapotherm 20.00 28.00 06/27/19 10:41 100 Vapotherm 20.00 28 06/27/19 10:00 73 31 97/73 (81) 100 Vapotherm 40.00 30.00 06/27/19 09:00 75 32 80/48 (59) 100 Vapotherm 40.00 30.00 06/27/19 08:00 71 37 102/63 (76) 100 Vapotherm 40.00 30.00 06/27/19 08:00 Vapotherm 30.00 30 06/27/19 08:00 35.7 06/27/19 07:00 73 06/27/19 07:00 73 30 100/71 (81) 100 Vapotherm 40.00 30.00 06/27/19 06:48 100 Vapotherm 40.00 30 06/27/19 06:00 74 32 113/80 (91) 100 Vapotherm 40.00 30.00 06/27/19 05:00 80 36 116/84 (95) 100 Vapotherm 40.00 30.00 06/27/19 04:58 38.8 I & O 06/28/19 07:00 Intake Total 2847.5 ml Output Total 1800 ml Balance 1047.5 ml Height & Weight Height: 5'9.00" Weight: 251lbs. 0oz. [id number]; 35.95 BMI Method:Actual General Appearance: WD/WN, Chronically ill, Mild Distress HEENT: PERRL/EOMI, Moist Mucous Membranes; No Scleral Icterus (L), No Scleral Icterus (R) Neck: Normal Inspection Respiratory: Decreased Breath Sounds; No Rhonci, No Wheezing Cardiovascular: Regular Rate, Rhythm, No Murmur Capillary Refill: Less Than 3 Seconds Peripheral Pulses: 2+ Dorsalis Pedis (R), 2+ Left Dors-Pedis (L), 2+ Radial Pulses (R), 2+ Radial Pulses (L) Gastrointestinal: normal bowel sounds Extremity: No Pedal Edema Neurologic/Psychiatric: Alert, Oriented x3 Skin: Normal Color, Warm/Dry; No Mottled Results Lab Laboratory Tests 06/26/19 09:45 06/27/19 02:50 06/28/19 02:50 DIPESH PARKS DO 06/28/19 0505: Subjective Time Seen by a Provider: 05:02 Exam Exam General Appearance: WD/WN, Chronically ill, Mild Distress HEENT: PERRL/EOMI, Moist Mucous Membranes Neck: Normal Inspection Respiratory: Decreased Breath Sounds; No Rhonci, No Wheezing Cardiovascular: Regular Rate, Rhythm, No Murmur Extremity: No Pedal Edema Neurologic/Psychiatric: Alert, Oriented x3 Skin: Normal Color, Warm/Dry Assessment/Plan Assessment/Plan Severe Sepsis with BANDAR pneumonia -Continue zosyn. D/C Vanco -Urine Strep is positive -Patten cultures pending -echo Metabolic encephalopathy/ agitation -Currently on Precedex - haldol PRN and Risperdal Lethargic -Monitor CP probably secondary to pneumonia -Cardiology also following NSTEMI type II LAINEY -Monitor -IVF Methamphetamine use -Education Tobacco use -Education COPD hx -SVNs - Supervisory-Addendum Brief Verification & Attestation Participated in pt care: history Personally performed: exam, history Care discussed with: Medical Student Procedures: n/a Verification and Attestation of Medical Student E/M Service A medical student performed and documented this service in my presence. I reviewed and verified all information documented by the medical student and made modifications to such information, when appropriate. I personally performed the physical exam and medical decision making. Dipesh Parks, Jun 28, 2019,11:05 CORTEZ GONSALVES MED STUDENT Jun 28, 2019 04:32 DIPESH MIRANDA DO Jun 28, 2019 05:05 POS
[2019-06-28 04:48] LABS: BUN/CREATININE RATIO 16; CALCIUM 8.1 MG/DL (8.5-10.1); CARBON DIOXIDE 20 MMOL/L (21-32); CHLORIDE 106 MMOL/L (98-107); CREATININE SERUM 1.02 MG/DL (0.60-1.30); GFR ESTIMATED > 60; GLUCOSE 176 MG/DL (70-105); MAGNESIUM 2.1 MG/DL (1.6-2.4); PHOSPHORUS 2.3 MG/DL (2.3-4.7); POTASSIUM 3.5 MMOL/L (3.6-5.0); SODIUM 137 MMOL/L (135-145)
[2019-06-28] MEDS: MAGNESIUM 1 GM/100 ML IVPB 100 ML IV SCH (04:50)
[2019-06-28] MEDS: POTASSIUM CL 10MEQ/50ML IVPB 50 ML IV SCH ×3 (04:50→05:04)
[2019-06-28] MEDS: inSUlin ASPART (NovoLOG) 1 UNIT/0.01 ML (CHARGE PER UNIT) SC SCH ×4 (04:50→20:43)
[2019-06-28] MEDS: KCL 20 MEQ TAB (K-DUR) PO SCH (04:50)
[2019-06-28] MEDS: meTOprolol 5 MG/5 ML (LOPRESSOR) VIAL IV SCH ×4 (05:04→23:08)
[2019-06-28] MEDS ORDERED: POTASSIUM CL 10MEQ/50ML IVPB 50 ML IV SCH (05:15)
[2019-06-28] MEDS ORDERED: morphine INJ 4 MG/ML 1 ML (VIAL/SYRINGE) ONE (05:25)
[2019-06-28] MEDS: morphine INJ 4 MG/ML 1 ML (VIAL/SYRINGE) IVP PRN ×5 (05:31→23:09)
--- NOTE | 2019-06-28 05:48 | Diagnostic Imaging Report ---
EXAMINATION: Portable erect AP chest at 4:11 AM INDICATION: Dyspnea As noted on the prior exam of 06/27/2019, there is near complete opacification of the left hemithorax by atelectasis/infiltrate and fluid. The right lung is relatively clear. The heart is enlarged but stable. The mediastinum is widened but also unchanged when compared to the prior exam. The osseous structures are intact. IMPRESSION: There is persistent near complete opacification of the left hemithorax by atelectasis/infiltrate and fluid. When compared to the prior study, there has been no significant change. Dictated by: Dictated on workstation # [id number]
[2019-06-28] MEDS: RT-ALBUTEROL/IPRATROPIUM 3 ML (DUONEB) VIAL IH SCH ×5 (06:28→22:12)
[2019-06-28] MEDS: PIPERACILLIN/TAZO 4.5 GM/NS 100 ML IV SCH ×6 (06:33→22:26)
[2019-06-28] MEDS ORDERED: TROUGH ORDER-PHARMACY XX NR ×2 (07:00→16:00)
--- NOTE | 2019-06-28 08:14 | Progress Note - Hospitalist ---
Subjective HPI/CC On Admission Date Seen by Provider: Jun 28, 2019 Time Seen by Provider: 08:10 Pt is a 59yoCM with a PMH of HTN, IDDMII, HLD who presented to the ER duet o 5 day history of chest pain and shortness of breath. He denies any precipitating factors when this started or any other symptoms associated with it. He has not h istory of chest pain or previous episodes. He was very vague in his history and stated "I'm not admitting to anything" when asked for more details regarding his history. He does state that he has had "stomach problems" for the past 9 months. Could not elaborate further. He is an insulin-dependent diabetic who reports he takes insulin 3 times a day but he is not sure what kind. He also states he's been off his medicines for a while but could not indicate why. He is laying quite flat in bed and when asked to sit up to help with breathing he refused. He stated he wanted me to give him a sleeping pill to just "knock him out. Subjective/Events-last exam Pt reports not feeling any better. States legs hurt. When asked about chest pain he states that has improved. Has not been out of bed yet. Discussed with RN and he kicked RN out of the room overnight. Advised patient again on need to cooperate with nursing care in order to feel better. Focused Exam Lactate Level 06/26/19 09:45: Lactic Acid Level 6.29*H 06/26/19 12:02: Lactic Acid Level 4.44*H 06/27/19 02:50: Lactic Acid Level 1.38 Objective Exam Vital Signs Vital Signs Date Time Temp Pulse Resp B/P (MAP) Pulse Ox O2 Delivery O2 Flow Rate FiO2 06/28/19 06:28 91 Vapotherm 15.00 25 06/28/19 06:00 84 22 134/88 (103) 06/28/19 04:00 36.7 Capillary Refill : Less Than 3 Seconds General Appearance: No Apparent Distress, Chronically ill, Obese Respiratory: Lungs Clear, No Respiratory Distress Cardiovascular: Regular Rate, Rhythm, No Murmur Gastrointestinal: Normal Bowel Sounds, Non Tender, Soft Extremity: No Calf Tenderness, Pedal Edema Results/Procedures Lab Laboratory Tests 06/28/19 02:50 Patient resulted labs reviewed. Imaging: Reviewed Imaging Films, Reviewed Imaging Report Assessment/Plan Assessment and Plan Assess & Plan/Chief Complaint Septic Shock CAP Improving Left sided pneumonia- step pna antigen positive Continue Vic, TONYA Vanc Pulm consulted appreciate recs Blood cultures with NGTD IDDMII Diabetic neuropathy SSI A1c 11.6 Levemir added Lyrica added PT/OT HTN HLD Chest Pain Cardiology consulted, appreciate recs troponin slightly elevated, managed by cardiology Substance Abuse Denies use to me UDS + for meth Diagnosis/Problems Diagnosis/Problems (1) Septic shock (2) Insulin dependent diabetes mellitus Status: Chronic (3) Methamphetamine use Status: Acute (4) Pneumonia Status: Acute Qualifiers: Pneumonia type: due to unspecified organism Laterality: left Lung location: unspecified part of lung Qualified Codes: J18.9 - Pneumonia, unspecified organism (5) Uncontrolled diabetes mellitus Status: Acute Qualifiers: Diabetes mellitus type: type 2 Glycemic state: with hyperglycemia Qualified Codes: E11.65 - Type 2 diabetes mellitus with hyperglycemia (6) Uncontrolled hypertension Status: Acute (7) Non-compliance Status: Acute Clinical Quality Measures AMI/AHF: ASA po Prior to arrival: No DVT/VTE Risk/Contraindication: Risk Factor Score Per Nursin RFS Level Per Nursing on Admit: 4+=Very High CHET ZAVALETA MD Jun 28, 2019 08:14 POS
[2019-06-28] MEDS: risperiDONE 1 MG (RisperDAL) TAB PO SCH ×2 (08:26→20:34)
[2019-06-28] MEDS: PREGABALIN 25 MG (LYRICA) CAPSULE PO SCH ×2 (08:57→20:34)
[2019-06-28] MEDS: ENOXAPARIN 40 MG/0.4 ML (LOVENOX) SYR SC SCH (08:57)
[2019-06-28] MEDS ORDERED: POTASSIUM PHOSPHATE INJ 30 MM in NS (IVPB) 250 ML IV ONE (09:15)
[2019-06-28] MEDS: LACTATED RINGERS 1,000 ML IV SCH ×3 (09:47→22:26)
[2019-06-28] MEDS: DEXMEDETOMIDINE INJECTION 1,000 MCG in NS (IVPB) 240 ML IV SCH (10:00)
--- NOTE | 2019-06-28 11:43 | Occupational Therapy Eval ---
OT Evaluation-General/PLF Medical Diagnosis Admission Date Jun 26, 2019 at 12:46 Medical Diagnosis: pneumonia, SOB Onset Date: Jun 26, 2019 Therapy Diagnosis Therapy Diagnosis: decreased ADL function Height/Weight Height (Feet): 5 Height (Inches): 9.00 Weight (Pounds): 251 Weight (Ounces): 0 Precautions Precautions/Isolations: Fall Prevention, Standard Precautions Safety Interventions: Bed Exit Alarm Referral Physician: Briana Guillaume MD Referral Reason: Activity Tolerance, Self Care, Evaluation/Treatment, Strengthening/ROM Medical History Pertinent Medical History: DM, HTN Additional Medical History HTN, insulin dependent DM, HLD, low back pain Meth use Current History Per H&P: "Pt is a 59yoCM with a PMH of HTN, IDDMII, HLD who presented to the ER duet o 5 day history of chest pain and shortness of breath. He denies any precipitating factors when this started or any other symptoms associated with it. He has not history of chest pain or previous episodes. He was very vague in his history and stated "I'm not admitting to anything" when asked for more details regarding his history. He does state that he has had "stomach problems" for the past 9 months. Could not elaborate further. He is an insulin-dependent diabetic who reports he takes insulin 3 times a day but he is not sure what kind. He also states he's been off his medicines for a while but could not ind icate why. He is laying quite flat in bed and when asked to sit up to help with breathing he refused. He stated he wanted me to give him a sleeping pill to just "knock him out." Reviewed History: Yes Social History Home: Single Level Current Living Status: Alone Entry Into Home: Level Entry Steps Into Home: 0 Pt states not "social" and is not close with neighbors. Pt's sister lives in [place] and pt lives in [place]; pt states sister is able to come over at times if assist is needed. ADL-Prior Level of Function SCALE: Activities may be completed with or without assistive devices. 6-Kfjxprkpjv-lynrtig completes the activity by him/herself with no assistance from a helper. 5-Set-up or Clean-up Assistance-helper sets up or cleans up; patient completes activity. Bynum assists only prior to or following the activity. 4-Supervision or Touching Assistance-helper provides verbal cues and/or touching/steadying and/or contact guard assistance as patient completes activity. Assistance may be provided throughout the activity or intermittently. 3-Partial/Moderate Assistance-helper does LESS THAN HALF the effort. Bynum lifts, holds or supports trunk or limbs, but provides less than half the effort. 2-Substantial/Maximal Assistance-helper does MORE THAN HALF the effort. Bynum lifts or holds trunk or limbs and provides more than half the effort. 1-Nyyatohyo-qqvpbc does ALL the effort. Patient does none of the effort to complete the activity. Or, the assistance of 2 or more helpers is required for the patient to complete the activity. If activity was not attempted, code reason: 7-Patient Refused. 9-Not Applicable-not attempted and the patient did not perform the activity before the current illness, exacerbation or injury. 10-Not Attempted due to Environmental Limitations-(lack of equipment, weather restraints, etc.). 88-Not Attempted due to Medical Conditions or Safety Concerns. Self Care: Independent Functional Cognition: Independent DME/Equipment: Grab Bars DME/Equipment Comments Pt was IND without AE. Occupation: does not work Drive Self: Yes Leisure Interests: "taking homeless people on rides and mormon" OT Current Status Subjective Nursing states pt has been cooperative on this date, states just moved with assist x2 from bed to chair. Pt seen in recliner chair, Pt c/o 5/10 pain in bilateral LE distal to knees, in stomach, and heart. Pt agreeable to OT tx session. Mental Status/Objective Patient Orientation: Person, Place, Situation, Normal For Age Attachments: Oxygen Current Glasses/Contacts: No Hearing Aids: No Dentures/Partials: No Hand Dominance: Right Upper Extremity ROM Impaired BUE- restricted to ~70* shoulder scaption Upper Extremity Coordination WFL BUE Upper Extremity Sensation states numbness/ tingling feeling BLE posterior to knees Upper Extremity Strength Impaired BUE member of [employer] strength weak bilaterally ADL-Treatment Eating (QC): 6 (Opens soda can IND, able to reach mouth with increased time and noted strain.) Upper Body Dressing (QC): 2 (Based on clinical judgment, pt unable to doff/ don shirt without max A) Lower Body Dressing (QC): 1 (Pt unable to reach BLE) Other Treatments Pt Ox3, agreeable and cooperative. Pt's voice soft and mumbled. Pt denies need for bathroom or grooming tasks. When asked pt's hobbies, pt states, "Nothing." At end of session pt speaks more clearly stating his hobbies (noted above). Pt c/o weakness and desires to get stronger to return home. Pt educated on pneumonia and benefits of seated position and deep breathing. Pt nods in underst anding. Pt left in recliner chair with call light in reach, all needs met. Education OT Patient Education: Correct positioning, Disease process, Modified ADL techniques, Purpose of tx/functional activities Teaching Recipient: Patient Teaching Methods: Demonstration, Discussion Response to Teaching: Verbalize Understanding, Return Demonstration OT Short Term Goals Short Term Goals 1=Demonstrate adherence to instructed precautions during ADL tasks. 2=Patient will verbalize/demonstrate understanding of assistive devices/modifications for ADL. 3=Patient will improve strength/tolerance for activity to enable patient to perform ADL's. OT Chcf Goals Chcf Goals Time Frame: Jul 05, 2019 Eating (QC): 6 Oral Hygiene (QC): 6 Shower/Bathe Self (QC): 4 Upper Body Dressing (QC): 4 Lower Body Dressing (QC): 4 On/Off Footwear (QC): 6 Toileting Hygiene (QC): 4 Toilet/Commode Transfer (QC): 4 Additional Goals: 1-Demonstrate ADL Tasks, 2-Verbalize Understanding, 3- ImproveStrength/Aubree 1=Demonstrate adherence to instructed precautions during ADL tasks. 2=Patient will verbalize/demonstrate understanding of assistive devices/modifications for ADL. 3=Patient will improve strength/tolerance for activity to enable patient to perform ADL's. OT Education/Plan Problem List/Assessment Assessment: Decreased Activ Tolerance, Decreased UE Strength, Dependent Transfers, Impaired I ADL's, Impaired Self-Care Skills Discharge Recommendations Plan/Recommendations: Continue POC Therapy Discharge Recommendati: Post Acute OT Equpiment Recommendations-D/C: Bath Chair, Hip Kit Patient/Family Goals Get stronger and return home. Treatment Plan/Plan of Care Treatment,Training & Education: Yes Patient would benefit from OT for education, treatment and training to promote independence in ADL's, mobility, safety and/or upper extremity function for ADL's. Plan of Care: ADL Retraining, Concurrent Therapy, Functional Mobility, UE Funct Exercise/Act Treatment Duration: Jul 05, 2019 Frequency: 5 times per week Estimated Hrs Per Day: .25 hour per day Agreement: Yes Rehab Potential: Good Time/GCodes Start Time: 11:08 Stop Time: 11:20 Total Time Billed (hr/min): 12 Billed Treatment Time 1, EVM (12) AMY CARL OTR Jun 28, 2019 11:43 POS
--- NOTE | 2019-06-28 12:36 | Progress Note - Cardiology ---
Cardiology SOAP Progress Note Subjective: Shortness of breath persistent No cp or palp or syncope Has gen malaise and weakness Objective: I&O/Vital Signs 06/28/19 06/28/19 06/28/19 06/28/19 01:00 01:00 02:00 03:00 Pulse 73 73 79 83 Resp 28 26 24 B/P (MAP) 107/69 (82) 116/82 (93) 120/71 (87) Pulse Ox 90 91 91 O2 Delivery Vapotherm Vapotherm Vapotherm O2 Flow Rate 15.00 15.00 15.00 25.00 25.00 25.00 06/28/19 06/28/19 06/28/19 06/28/19 03:05 03:05 04:00 04:00 Temp 36.5 36.7 Pulse 85 Resp 27 B/P (MAP) 130/81 (97) Pulse Ox 92 90 O2 Delivery Vapotherm Vapotherm Vapotherm Vapotherm O2 Flow Rate 15.00 15.00 15.00 15.00 25.00 25.00 25.00 FiO2 25 06/28/19 06/28/19 06/28/19 06/28/19 05:00 06:00 06:28 06:57 Pulse 86 84 82 Resp 23 22 B/P (MAP) 132/85 (101) 134/88 (103) Pulse Ox 91 90 91 O2 Delivery Vapotherm Vapotherm Vapotherm O2 Flow Rate 15.00 15.00 15.00 25.00 25.00 FiO2 25 06/28/19 06/28/19 06/28/19 06/28/19 07:00 08:00 08:15 09:00 Pulse 84 85 92 Resp 30 23 18 B/P (MAP) 123/83 (96) 126/82 (97) 127/82 (97) Pulse Ox 91 92 92 O2 Delivery Vapotherm Vapotherm Vapotherm Vapotherm O2 Flow Rate 15.00 15.00 15.00 15.00 25.00 25.00 25.00 06/28/19 06/28/19 06/28/19 06/28/19 10:00 10:34 11:00 12:17 Pulse 87 86 Resp 23 31 B/P (MAP) 140/86 (104) Pulse Ox 90 87 94 O2 Delivery Vapotherm Vapotherm Vapotherm Vapotherm O2 Flow Rate 15.00 15.00 15.00 15.00 25.00 25.00 FiO2 25 06/28/19 00:00 Intake Total 2197.5 ml Output Total 1450 ml Balance 747.5 ml Weight (Pounds): 251 Weight (Ounces): 0 Weight (Calculated Kilograms): 113.368027 Constitutional: AAO x 3, well-developed, well-nourished Respiratory: chest expansion is symmetric, chest is bilaterally symmetric, other (fair air entry) Cardiovascular: regular rate-rhythm; No JVD; S1 and S2 Gastrointestional: round, audible bowel sounds Extremities: no lower extremity edema bilateral Neurologic/Psychiatric: grossly intact (moves all extremities) Skin: No rash on exposed areas, No ulcerations on exposed areas Results/Procedures: Labs Laboratory Tests 06/27/19 16:48: Glucometer 185H 06/27/19 20:52: Glucometer 247H 06/28/19 02:50: White Blood Count 17.0H, Red Blood Count 3.71L, Hemoglobin 10.5L, Hematocrit 31L , Mean Corpuscular Volume 84, Mean Corpuscular Hemoglobin 28, Mean Corpuscular Hemoglobin Concent 34, Red Cell Distribution Width 14.9H, Platelet Count 259, Mean Platelet Volume 10.7H, Sodium Level 137, Potassium Level 3.5L, Chloride Level 106, Carbon Dioxide Level 20L, Anion Gap 11, Blood Urea Nitrogen 16, Creatinine 1.02, Estimat Glomerular Filtration Rate > 60, BUN/Creatinine Ratio 16, Glucose Level 176H, Calcium Level 8.1L, Phosphorus Level 2.3, Magnesium Level 2.1 06/28/19 06:55: Vancomycin Level Trough 17.4 06/28/19 11:08: Glucometer 261H Microbiology 06/26/19 Blood Culture - Preliminary, Resulted No growth 06/27/19 Influenza Types A,B Antigen ([facility]) - Final, Complete Laboratory Tests 06/27/19 02:50 06/28/19 02:50 A/P: Assessment: Chest discomfort of undetermined etiology - improved Mildly elevated troponin likely Type 2 IL r/t pneumonia, renal insufficiency and hypoxia Dilated cardiomyopathy. Echo of 06/27/19: LVEF 35-40%, mild enlargement of LA, grade 2 diastolic dysfunction, mild to mod MR & TR, RVSP 22 mmHg Pneumonia with sepsis - management per Medical/Pulmonary services Acute renal insufficiency -improving Large area of dense consolidation of the left upper lobe, concerning for al veolar pneumonia. Small left effusion. Mild cardiomegaly with mild scattered calcified aortic atherosclerosis. Multiple enlarged mediastinal lymph nodes, possibly reactive Per CTA of 19 (+) Methamphetamine use Hyponatremia - improving HTN HLD DM Chronic abd pain - followed by his PCP COPD Quit smoking approx 20 yrs ago Plan: * Continue current cardiac regimen * Replenish lytes * Monitor labs Clinical Quality Measures AMI/AHF: ASA po Prior to arrival: RYNE Gordon MD FACP FAC CCDS Jun 28, 2019 12:36 POS
--- NOTE | 2019-06-28 13:12 | Physical Therapy Evaluation ---
PT Evaluation-General Medical Diagnosis Admission Date Jun 26, 2019 at 12:46 Medical Diagnosis: pneumonia, SOB Onset Date: Jun 26, 2019 Therapy Diagnosis Therapy Diagnosis: impaired mobility, strength, endurance Height/Weight Height (Feet): 5 Height (Inches): 9.00 Weight (Pounds): 251 Weight (Ounces): 0 Precautions Precautions/Isolations: Fall Prevention, Standard Precautions Weight Bear Status Right Lower Extremity: Right Weight Bearing/Tolerated Left Lower Extremity: Left Weight Bearing/Tolerated Referral Physician: Briana Guillaume MD Reason for Referral: Evaluation/Treatment Medical History Pertinent Medical History: DM, HTN Additional Medical History Past Medical History Surgeries: Orthopedic Cardiac: High Cholesterol, Hypertension Reproductive: No Endocrine: Diabetes, Insulin dep History of Blood Disorders: No Reviewed History: Yes Social History Home: Apartment Current Living Status: Alone Entry Into Home: Level Entry PT Steps Into Home: 0 Patient states he lives on the 6th floor and has an elevator. Prior Prior Level of Function SCALE: Activities may be completed with or without assistive devices. 8-Yiqxqxzukm-bvfcxpi completes the activity by him/herself with no assistance from a helper. 5-Set-up or Clean-up Assistance-helper sets up or cleans up; patient completes activity. [place] assists only prior to or following the activity. 4-Supervision or Touching Assistance-helper provides verbal cues and/or touching/steadying and/or contact guard assistance as patient completes activity. Assistance may be provided throughout the activity or intermittently. 3-Partial/Moderate Assistance-helper does LESS THAN HALF the effort. [place] lifts, holds or supports trunk or limbs, but provides less than half the effort. 2-Substantial/Maximal Assistance-helper does MORE THAN HALF the effort. [place] lifts or holds trunk or limbs and provides more than half the effort. 8-Gfklufpyj-sylquz does ALL the effort. Patient does none of the effort to complete the activity. Or, the assistance of 2 or more helpers is required for the patient to complete the activity. If activity was not attempted, code reason: 7-Patient Refused. 9-Not Applicable-not attempted and the patient did not perform the activity befo re the current illness, exacerbation or injury. 10-Not Attempted due to Environmental Limitations-(lack of equipment, weather re straints, etc.). 88-Not Attempted due to Medical Conditions or Safety Concerns. Bed Mobility: 6 Transfers (B,C,W/C): 6 Gait: 6 Stairs: 6 Indoor Mobility (Ambulation): Independent Stairs: Independent PT Evaluation-Current Subjective Patient in recliner pre tx, agrees to PT. Patient is in recliner and states he has been for about an hour. Patient wants to stay in the recliner for now and refuses to even try to just stand and then sit back down. Patient rates pain of 10/10 in both legs and feet. Patient states that the nurse is aware of his pain. Patient is very anxious and SOB just with testing. Pt/Family Goals none stated Objective Patient Orientation: Person Attachments: Oxygen, IV vapotherm ROM/Strength ROM Lower Extremities limited due to pain Strength Lower Extremities RLE 3/5 gross, LLE 2/5 gross Sensory Vision: Functional Hearing: Functional Hand Dominance: Right Sensation Right Lower Extremit: Impaired Sensation Left Lower Extremity: Impaired Balance Sitting Static: Normal Treatment BLE exercises seated x10 (AP, LAQ, hip flexion) Assessment/Needs Patient has weak BLE, refuses to try to stand at this time. Patient is very anxious. Patient in recliner post tx with nurse call, phone, tray, legs elevated. Rehab Potential: Guarded PT Alf Goals Hand Profiler Goals PT Hand Profiler Goals Time Frame: Jul 05, 2019 Sit to Lying (QC): 4 Lying-Sitting on Side/Bed(QC): 4 Sit to Stand (QC): 3 Roll Left to Right (QC): 4 Chair/Voo-qx-Xlxms Xfer(QC): 3 PT Plan Problem List Problem List: Activity Tolerance, Functional Strength, Safety, Balance, Gait, Transfer, Bed Mobility, ROM Treatment/Plan Treatment Plan: Continue Plan of Care Treatment Plan: Bed Mobility, Concurrent Therapy, Education, Functional Activity Aubree, Functional Strength, Gait, Safety, Therapeutic Exercise, Transfers Treatment Duration: Jul 05, 2019 Frequency: 6 times per week Estimated Hrs Per Day: .25 hour per day Patient and/or Family Agrees t: Yes Safety Risks/Education Patient Education: Correct Positioning, Safety Issues Teaching Recipient: Patient Teaching Methods: Demonstration, Discussion Response to Teaching: Reinforcement Needed Discharge Recommendations Therapy Discharge Recommendati: Other, See Comments (home with family) Time/GCodes Time In: 1252 Time Out: 1303 Total Billed Treatment Time: 11 Total Billed Treatment 1 visit EVM 11' KRTEK,LAMONT PT Jun 28, 2019 13:12 POS
[2019-06-28] MEDS ORDERED: RT-ALBUTEROL/IPRATROPIUM 3 ML (DUONEB) VIAL IH PRN (20:00)
[2019-06-28] MEDS: diphenhydrAMINE 25 MG TAB (BENADRYL) PO PRN (20:34)
[2019-06-29] VITALS (11 sets, daily range): BP systolic 137–209; BP diastolic 75–115
[2019-06-29] MEDS: RT-ALBUTEROL/IPRATROPIUM 3 ML (DUONEB) VIAL IH SCH ×7 (03:30→22:53)
[2019-06-29 03:48] LABS: BASOPHILS % (AUTO) 0 % (0-10); EOSINOPHILS # (AUTO) 0.2 10^3/uL (0.0-0.3); EOSINOPHILS % (AUTO) 2 % (0-10); HEMATOCRIT 34 % (40-54); HEMOGLOBIN 11.1 G/DL (13.3-17.7); LYMPHOCYTES # (AUTO) 1.1 X 10^3 (1.0-4.0); LYMPHOCYTES % (AUTO) 8 % (12-44); MEAN CORPUSCULAR HEMOGLOBIN 28 PG (25-34); MEAN CORPUSCULAR HGB CONC 33 G/DL (32-36); MEAN CORPUSCULAR VOLUME 85 FL (80-99); MEAN PLATELET VOLUME 10.3 FL (7.4-10.4); MONOCYTES % (AUTO) 7 % (0-12); NEUTROPHILS # (AUTO) 11.7 X 10^3 (1.8-7.8); NEUTROPHILS % (AUTO) 83 % (42-75); PLATELET COUNT 278 10^3/uL (130-400); RED CELL DISTRIBUTION WIDTH 15.5 % (10.0-14.5); WHITE BLOOD COUNT 14.1 10^3/uL (4.3-11.0)
[2019-06-29 04:11] LABS: BUN/CREATININE RATIO 15; CALCIUM 8.6 MG/DL (8.5-10.1); CARBON DIOXIDE 20 MMOL/L (21-32); CHLORIDE 105 MMOL/L (98-107); CREATININE SERUM 0.89 MG/DL (0.60-1.30); GFR ESTIMATED > 60; GLUCOSE 122 MG/DL (70-105); PHOSPHORUS 2.4 MG/DL (2.3-4.7); POTASSIUM 3.9 MMOL/L (3.6-5.0); SODIUM 135 MMOL/L (135-145)
[2019-06-29] MEDS: LACTATED RINGERS 1,000 ML IV SCH (05:29)
[2019-06-29] MEDS: meTOprolol 5 MG/5 ML (LOPRESSOR) VIAL IV SCH ×3 (06:21→18:34)
[2019-06-29] MEDS: PIPERACILLIN/TAZO 4.5 GM/NS 100 ML IV SCH ×2 (06:21)
[2019-06-29] MEDS: MAGNESIUM 1 GM/100 ML IVPB 100 ML IV SCH (06:21)
[2019-06-29] MEDS: POTASSIUM CL 10MEQ/50ML IVPB 50 ML IV SCH (06:22)
[2019-06-29] MEDS: KCL 20 MEQ TAB (K-DUR) PO SCH (06:22)
[2019-06-29] MEDS: inSUlin ASPART (NovoLOG) 1 UNIT/0.01 ML (CHARGE PER UNIT) SC SCH ×4 (06:22→21:17)
--- NOTE | 2019-06-29 07:38 | Pulmonary Progress Note ---
Subjective Time Seen by a Provider: 07:37 Subjective/Events-last exam Pt appears to be doing better. Still on Vapotherm Sepsis Event Evaluation Height, Weight, BMI Height: 5'9.00" Weight: 251lbs. 0oz. 113.486261we; 35.95 BMI Method:Actual Focused Exam Lactate Level 06/26/19 09:45: Lactic Acid Level 6.29*H 06/26/19 12:02: Lactic Acid Level 4.44*H 06/27/19 02:50: Lactic Acid Level 1.38 Exam Exam Vital Signs Date Time Temp Pulse Resp B/P (MAP) Pulse Ox O2 Delivery O2 Flow Rate FiO2 06/29/19 06:00 95 19 189/109 (135) 98 Vapotherm 25.00 35.00 06/29/19 05:35 96 12 98 Vapotherm 25.00 35.00 06/29/19 05:00 94 23 100 Vapotherm 25.00 50.00 06/29/19 04:00 89 24 165/82 (109) 100 Vapotherm 25.00 50.00 06/29/19 04:00 Vapotherm 25.00 50 06/29/19 03:43 93 25 177/102 (127) 100 Vapotherm 25.00 50.00 06/29/19 03:37 88 28 100 Vapotherm 25.00 50.00 06/29/19 03:31 100 Vapotherm 15.00 60 06/29/19 03:00 105 209/111 (143) 100 Vapotherm 25.00 60.00 06/29/19 02:30 86 26 137/95 (109) 98 Vapotherm 25.00 60.00 06/29/19 01:00 87 27 157/91 (113) 99 Vapotherm 25.00 60.00 06/29/19 01:00 87 06/29/19 00:00 36.8 06/29/19 00:00 89 23 173/115 (134) 95 Vapotherm 25.00 60.00 06/29/19 00:00 Vapotherm 25.00 60 06/28/19 23:00 87 27 190/111 (137) 100 Vapotherm 25.00 60.00 06/28/19 22:40 Vapotherm 25.00 60.00 06/28/19 22:12 84 20 100 60.00 06/28/19 22:00 84 24 148/90 (109) 100 NIV Bilevel 60.00 06/28/19 21:02 NIV Bilevel 60.00 06/28/19 21:00 86 29 164/100 (121) 100 Vapotherm 25.00 60.00 06/28/19 20:58 81 24 100 100.00 06/28/19 20:00 Vapotherm 25.00 60 06/28/19 20:00 94 174/105 (128) 100 Vapotherm 25.00 60.00 06/28/19 20:00 36.8 06/28/19 19:56 86 16 100 Vapotherm 25.00 60.00 06/28/19 19:30 Vapotherm 25.00 60.00 06/28/19 19:17 94 Vapotherm 15.00 25 06/28/19 19:07 87 169/109 (129) 96 Vapotherm 15.00 25.00 06/28/19 19:00 89 16 177/112 (133) 98 Vapotherm 15.00 25.00 06/28/19 19:00 88 06/28/19 18:00 82 23 133/76 (95) 97 Vapotherm 15.00 25.00 06/28/19 17:00 92 23 178/105 (129) Vapotherm 15.00 25.00 06/28/19 16:10 94 Vapotherm 15.00 06/28/19 16:00 85 30 144/87 (106) 94 Vapotherm 15.00 25.00 06/28/19 15:58 36.9 06/28/19 15:00 85 23 132/72 (92) 90 Vapotherm 15.00 25.00 06/28/19 14:30 90 Vapotherm 15.00 25 06/28/19 14:00 85 31 140/84 (102) 93 Vapotherm 15.00 25.00 06/28/19 13:00 82 31 135/90 (105) Vapotherm 15.00 25.00 06/28/19 12:57 80 06/28/19 12:17 94 Vapotherm 15.00 06/28/19 12:00 85 25 158/100 (119) 92 Vapotherm 15.00 25.00 06/28/19 12:00 37.6 06/28/19 11:00 86 31 140/86 (104) 87 Vapotherm 15.00 25.00 06/28/19 10:34 90 Vapotherm 15.00 25 06/28/19 10:00 87 23 Vapotherm 15.00 25.00 06/28/19 09:00 92 18 127/82 (97) Vapotherm 15.00 25.00 06/28/19 08:15 92 Vapotherm 15.00 06/28/19 08:00 85 23 126/82 (97) 92 Vapotherm 15.00 25.00 I & O 06/29/19 07:00 Intake Total 4920 ml Output Total 3800 ml Balance 1120 ml Height & Weight Height: 5'9.00" Weight: 251lbs. 0oz. 113.756111ui; 35.95 BMI Method:Actual General Appearance: WD/WN, Chronically ill, Mild Distress HEENT: PERRL/EOMI, Moist Mucous Membranes Neck: Normal Inspection Respiratory: Decreased Breath Sounds; No Rhonci, No Wheezing Cardiovascular: Regular Rate, Rhythm, No Murmur Capillary Refill: Less Than 3 Seconds Peripheral Pulses: 2+ Dorsalis Pedis (R), 2+ Left Dors-Pedis (L), 2+ Radial Pulses (R), 2+ Radial Pulses (L) Gastrointestinal: normal bowel sounds Extremity: No Pedal Edema Neurologic/Psychiatric: Alert, Oriented x3 Skin: Normal Color, Warm/Dry Results Lab Laboratory Tests 06/28/19 02:50 06/29/19 03:30 Assessment/Plan Assessment/Plan Severe Sepsis with BANDAR pneumonia -Continue zosyn. -Urine Strep is positive -Patten cultures pending CHF systolic and diastolic EF 35-40% -Give lasix 80mg IV X 1 -SL IVF -BNP is 1188 Metabolic encephalopathy/ agitation -Currently on Precedex - haldol PRN and Risperdal Lethargic -Monitor CP probably secondary to pneumonia -Cardiology also following NSTEMI type II LAINEY -Monitor -IVF Methamphetamine use -Education Tobacco use -Education COPD hx -SVNs AMINAH VÁSQUEZ DO Jun 29, 2019 07:38 POS
[2019-06-29] MEDS ORDERED: FUROSEMIDE 40 MG/4 ML INJ (LASIX) IVP NR (07:45)
[2019-06-29] MEDS ORDERED: KCL 20 MEQ TAB (K-DUR) PO NR (07:45)
--- NOTE | 2019-06-29 07:57 | Progress Note - Hospitalist ---
Subjective HPI/CC On Admission Date Seen by Provider: Jun 29, 2019 Time Seen by Provider: 07:51 Pt is a 59yoCM with a PMH of HTN, IDDMII, HLD who presented to the ER duet o 5 day history of chest pain and shortness of breath. He denies any precipitating factors when this started or any other symptoms associated with it. He has not h istory of chest pain or previous episodes. He was very vague in his history and stated "I'm not admitting to anything" when asked for more details regarding his history. He does state that he has had "stomach problems" for the past 9 months. Could not elaborate further. He is an insulin-dependent diabetic who reports he takes insulin 3 times a day but he is not sure what kind. He also states he's been off his medicines for a while but could not indicate why. He is laying quite flat in bed and when asked to sit up to help with breathing he refused. He stated he wanted me to give him a sleeping pill to just "knock him out. Subjective/Events-last exam Pt sitting up in chair. Complains of not sleeping in 3 days. Also complains of abdominal pain. Focused Exam Lactate Level 06/26/19 09:45: Lactic Acid Level 6.29*H 06/26/19 12:02: Lactic Acid Level 4.44*H 06/27/19 02:50: Lactic Acid Level 1.38 Objective Exam Vital Signs Vital Signs Date Time Temp Pulse Resp B/P (MAP) Pulse Ox O2 Delivery O2 Flow Rate FiO2 06/29/19 07:38 96 Vapotherm 25.00 35 06/29/19 06:00 95 19 189/109 (135) 06/29/19 00:00 36.8 Capillary Refill : Less Than 3 Seconds General Appearance: No Apparent Distress, Chronically ill, Obese Respiratory: No Accessory Muscle Use, No Respiratory Distress, Other (on vapotherm) Cardiovascular: Regular Rate, Rhythm, No Murmur Gastrointestinal: Normal Bowel Sounds, Non Tender, Soft Extremity: Pedal Edema Neurologic/Psychiatric: Alert, Oriented x3 Results/Procedures Lab Laboratory Tests 06/29/19 03:30 Patient resulted labs reviewed. Imaging: Reviewed Imaging Films, Reviewed Imaging Report Assessment/Plan Assessment and Plan Assess & Plan/Chief Complaint Septic Shock- resolved CAP Left sided pneumonia- step pna antigen positive Continue Zosyn Pulm consulted appreciate recs Blood cultures with NGTD transfer to floor IDDMII Diabetic neuropathy SSI A1c 11.6 Levemir has improved control, fasting BS 122 this morning Lyrica HTN HLD Chest Pain CHF Cardiology consulted, appreciate recs troponin slightly elevated, managed by cardiology echo shows Ef of 35%- cannot be on JACKIE due to angioedema Will add amlodipine BNP elevated- Lasix ordered Substance Abuse Denies use to me UDS + for meth Critical illness myopathyu PT/OT Consider swing bed DVT ppx: Lovenox Diagnosis/Problems Diagnosis/Problems (1) Septic shock (2) Insulin dependent diabetes mellitus Status: Chronic (3) Methamphetamine use Status: Acute (4) Pneumonia Status: Acute Qualifiers: Pneumonia type: due to unspecified organism Laterality: left Lung location: unspecified part of lung Qualified Codes: J18.9 - Pneumonia, unspecified organism (5) Uncontrolled diabetes mellitus Status: Acute Qualifiers: Diabetes mellitus type: type 2 Glycemic state: with hyperglycemia Qualified Codes: E11.65 - Type 2 diabetes mellitus with hyperglycemia (6) Uncontrolled hypertension Status: Acute (7) Non-compliance Status: Acute Clinical Quality Measures AMI/AHF: ASA po Prior to arrival: No DVT/VTE Risk/Contraindication: Risk Factor Score Per Nursin RFS Level Per Nursing on Admit: 4+=Very High CHET ZAVALETA MD Jun 29, 2019 07:57 POS
--- NOTE | 2019-06-29 08:13 | Diagnostic Imaging Report ---
INDICATION: Pneumonia. COMPARISON: Comparison made with prior examination from 06/28/2019. FINDINGS: There is cardiomegaly. There is some venous congestion. There is diffuse infiltrate in the left lung. There may be a small left pleural effusion. There is no pneumothorax. IMPRESSION: 1. Diffuse airspace disease in the left lung with questionable left pleural effusion. 2. Cardiomegaly and mild central pulmonary venous congestion. Dictated by: Dictated on workstation # [id number]
[2019-06-29] MEDS ORDERED: BISMUTH SUBSALICYLATE 240 ML (PEPTO BISMOL) PO PRN (08:15)
[2019-06-29] MEDS: PREGABALIN 25 MG (LYRICA) CAPSULE PO SCH ×2 (08:19→21:16)
[2019-06-29] MEDS: risperiDONE 1 MG (RisperDAL) TAB PO SCH ×2 (08:20→21:16)
[2019-06-29] MEDS: amLODIPine 10 MG (NORVASC) TAB PO SCH (08:20)
[2019-06-29] MEDS: ENOXAPARIN 40 MG/0.4 ML (LOVENOX) SYR SC SCH (09:11)
--- NOTE | 2019-06-29 11:00 | NUR ---
Patient transferred to 430 per BED accompanied by ICU staff. Patient and family notified and understand transfer. Personal belongings with patient. Report given to THIS RN FROM [facility]OPEZ AT 0900.
--- NOTE | 2019-06-29 11:27 | Physical Therapy Progress Note ---
Therapy Progress Note Patient declined any PT treatment at this time, reporting abdominal pain. 1 ref SAMANTHA ELI PT Jun 29, 2019 11:27 POS
--- NOTE | 2019-06-29 11:49 | NUR ---
1100 PT TO ROOM 430 VIA BED ACCOMPANIED BY Raudel MANCERA RN. ALL BELONGINGS SENT WITH PT, REPORT GIVEN PRIOR TO TRANSFER TO JIMMY VELASQUEZ.
[2019-06-29] MEDS ORDERED: cefTRIAXone 1,000 MG/SWFI 10 ML IV PUSH IV SCH ×2 (14:00)
[2019-06-29] MEDS: cefTRIAXone 1,000 MG/SWFI 10 ML IV PUSH IV SCH ×2 (14:46)
--- NOTE | 2019-06-29 16:17 | Progress Note - Cardiology ---
Cardiology SOAP Progress Note Subjective: Reports modest improvement in shortness of breath No cp No palp or syncope Has gen malaise Objective: I&O/Vital Signs 06/29/19 06/29/19 06/29/19 06/29/19 05:00 05:35 06:00 07:38 Pulse 94 96 95 Resp 23 12 19 B/P (MAP) 189/109 (135) Pulse Ox 100 98 98 96 O2 Delivery Vapotherm Vapotherm Vapotherm Vapotherm O2 Flow Rate 25.00 25.00 25.00 25.00 50.00 35.00 35.00 FiO2 35 06/29/19 06/29/19 06/29/19 06/29/19 07:45 07:48 08:00 08:00 Temp 36.2 Pulse 97 109 Resp 24 B/P (MAP) 170/90 (116) Pulse Ox 100 O2 Delivery Vapotherm Vapotherm Vapotherm O2 Flow Rate 20.00 25.00 30.00 FiO2 35 06/29/19 06/29/19 06/29/19 06/29/19 10:47 11:00 11:21 12:00 Temp 36.5 Pulse 98 Resp 22 B/P (MAP) 181/94 (123) Pulse Ox 93 98 93 O2 Delivery Vapotherm Vapotherm Vapotherm Vapotherm O2 Flow Rate 25.00 25.00 20.00 20.00 30.00 FiO2 30 35 30 06/29/19 15:34 Pulse Ox 95 O2 Delivery Vapotherm O2 Flow Rate 20.00 FiO2 30 06/29/19 00:00 Intake Total 2790 ml Output Total 1450 ml Balance 1340 ml Weight (Pounds): 251 Weight (Ounces): 0 Weight (Calculated Kilograms): 113.492918 Constitutional: AAO x 3, well-developed, well-nourished Respiratory: chest expansion is symmetric, chest is bilaterally symmetric, other (fair air entry) Cardiovascular: regular rate-rhythm; No JVD; S1 and S2 Gastrointestional: round, audible bowel sounds Extremities: no lower extremity edema bilateral Neurologic/Psychiatric: grossly intact (moves all extremities) Skin: No rash on exposed areas, No ulcerations on exposed areas Results/Procedures: Labs Laboratory Tests 06/28/19 20:37: Glucometer 218H 06/29/19 03:30: White Blood Count 14.1H, Red Blood Count 3.97L, Hemoglobin 11.1L, Hematocrit 34L , Mean Corpuscular Volume 85, Mean Corpuscular Hemoglobin 28, Mean Corpuscular Hemoglobin Concent 33, Red Cell Distribution Width 15.5H, Platelet Count 278, Mean Platelet Volume 10.3, Neutrophils (%) (Auto) 83H, Lymphocytes (%) (Auto) 8L , Monocytes (%) (Auto) 7, Eosinophils (%) (Auto) 2, Basophils (%) (Auto) 0, Neutrophils # (Auto) 11.7H, Lymphocytes # (Auto) 1.1, Monocytes # (Auto) 1.0, Eosinophils # (Auto) 0.2, Basophils # (Auto) 0.0, Sodium Level 135, Potassium Level 3.9, Chloride Level 105, Carbon Dioxide Level 20L, Anion Gap 10, Blood Urea Nitrogen 13, Creatinine 0.89, Estimat Glomerular Filtration Rate > 60, BUN/Creatinine Ratio 15, Glucose Level 122H, Calcium Level 8.6, Phosphorus Level 2.4, Magnesium Level 2.0, B-Type Natriuretic Peptide 1188.1H 06/29/19 12:03: Glucometer 255H Microbiology 06/26/19 Blood Culture - Preliminary, Resulted No growth 06/28/19 MRSA Screen - Final, Complete MRSA not isolated Laboratory Tests 06/28/19 02:50 06/29/19 03:30 A/P: Assessment: Chest discomfort of undetermined etiology - improved Mildly elevated troponin likely Type 2 WA r/t pneumonia, renal insufficiency and hypoxia Dilated cardiomyopathy. Echo of 06/27/19: LVEF 35-40%, mild enlargement of LA, grade 2 diastolic dysfunction, mild to mod MR & TR, RVSP 22 mmHg Pneumonia with sepsis - management per Medical/Pulmonary services Acute renal insufficiency -improving Large area of dense consolidation of the left upper lobe, concerning for alveolar pneumonia. Small left effusion. Mild cardiomegaly with mild scattered calcified aortic atherosclerosis. Multiple enlarged mediastinal lymph nodes, possibly reactive Per CTA of 06-26-19 (+) Methamphetamine use Hyponatremia - improving HTN HLD DM Chronic abd pain - followed by his PCP COPD Quit smoking approx 20 yrs ago Plan: * Lasix today for volume overload * Monitor labs * I discussed his case with Dr Parks this morning Clinical Quality Measures AMI/AHF: ASA po Prior to arrival: RYNE Gordon MD FACP FACC CCDS Jun 29, 2019 16:17 POS
--- NOTE | 2019-06-29 19:51 | NUR ---
0534 DR VÁSQUEZ ORDERS CONTINUOUS PULSE OX 1141 PT IS TRANSFERS FROM ICU TO 4 TH FLOOR ROOM [address] VÁSQUEZ CANCELS BIPAP ORDERS 1944 THIS RT CHECKS ORDERS AND ACKNOWLEDGE ORDERS NOTED THAT BIPAP ORDER HAS BEEN CANCELED. ORDER FOR CONTINUOUS PULSE OX NOTED UNDER COMMENTS : NEEDED HS 06/[address] VÁSQUEZ VIA TEXT FOR CLARIFICATION ON RESPIRATORY ORDERS: 1950 DR VÁSQUEZ IS NOTIFIED THAT HE DC BIPAP ORDERS AND REQUESTING CLARIFICATION ON BIPAP AND CONTINUOUS PULSE OX ORDERS. 1953 DR VÁSQUEZ RESPONSE IS " THE COMMENTS SAY" 1956 THIS RT AGAIN ATTEMPTS TO CLARIFY ORDER " I ASSUME YOU WANT BIPAP 06/04 HS WITH CONTINUOUS PULSE OX [address] VÁSQUEZ "YES!" 2028 THIS RT NOTIFIES NURSE ESTHETICIAN REGARDS IN OBTAINING CLARIFIED ORDERS FROM DOCTOR VÁSQUEZ 06/30/19 0004 RESPONSE FROM NURSE ESTHETICIAN IS TO FOLLOW PROTOCOL
--- NOTE | 2019-06-29 20:04 | NUR ---
2003 PT REFUSES SVN CURRENTLY ON VAPOTHERM RN IS AWARE 2254 PT REFUSES SVN. PT REFUSES TO WEAR BIPAP RN AT BEDSIDE
--- NOTE | 2019-06-29 20:45 | NUR ---
THIS RN FOUND PT COMING OFF ELEVATORS WITH NO OXYGEN ON AND SOB. THIS RN INFORMED PT HE SHOULD NOT LEAVE FLOOR WITHOUT OXYGEN. PT INFORMED THIS RN HE WENT TO 1ST FLOOR TO GET SNACKS AND DOESN'T NEED HIS OXYGEN. PT BACK TO ROOM AND CONTINUED SOB. THIS RN INFORMED PT HE NEEDED TO PLACE THE VAPOTHERM BACK ON. PT STATES," IM GOING TO FINISH MY CUPCAKES FIRST". THIS RN DISCUSSED PT SOB AND HOW HE NEEDED THE VAPOTHERM ON TO HELP HIM BREATHE. PT AGREES TO PUT OXYGEN ON AT THIS TIME. THIS RN EXPRESSED THE IMPORTANCE OF NOT TAKING OXYGEN OFF. PT STATES UNDERSTANDING.
--- NOTE | 2019-06-29 22:55 | NUR ---
THIS RN AND RT IN ROOM AT THIS TIME. PT IS REFUSING BREATHING TREATMENTS AND TO WEAR THE BIPAP.
--- NOTE | 2019-06-30 | NUR ---
PT REFUSED 0000 DOSE OF METOPROLOL.
[2019-06-30 00:35] VITALS: BP 163/80
--- NOTE | 2019-06-30 02:30 | NUR ---
PT FOUND IN SHOWER WITH NO OXYGEN ON AND SOB. PT IS YELLING FOR TOWELS. THIS RN AGAIN INFORMED PT THE IMPORTANCE OF APPLYING THE OXYGEN. PT STATES," I WANTED TO TAKE A SHOWER AND IM NOT GETTING OUT UNTIL IM DONE." THIS RN CALLED RT AND HOUSE SUP. AND INFORMED THEM OF PT NON-COMPLIANCE. HOUSE SUP AND RT TO PT ROOM. PT IS COMPLAINING TO FURNITURE CLEANER THAT HE WANTED TO TAKE A SHOWER AND ITS NOT LIKE HE IS DIEING. PT WAS AGAIN INFORMED THE IMPORTANCE OF OXYGEN AND WHY IS HE SOB. PT BACK TO BED AND OXYGEN APPLIED NC AT 5 LITER. PT SAT AT 92PERCENT. BED ALARM TURNED ON.
[2019-06-30] MEDS: RT-ALBUTEROL/IPRATROPIUM 3 ML (DUONEB) VIAL IH SCH ×2 (02:54→06:44)
--- NOTE | 2019-06-30 03:48 | NUR ---
OXYGEN SAT AT 74% ON 5 LITER NC. RT CALLED AND PT PLACED BACK ON VAPOTHERM. PT NOW OXYGEN SAT NOW AT 95%.
[2019-06-30 04:00] VITALS: BP 170/78
[2019-06-30] MEDS: meTOprolol 5 MG/5 ML (LOPRESSOR) VIAL IV SCH ×5 (05:31→23:23)
[2019-06-30 05:48] LABS: BASOPHILS # (AUTO) 0.1 10^3/uL (0.0-0.1); BASOPHILS % (AUTO) 1 % (0-10); EOSINOPHILS # (AUTO) 0.2 10^3/uL (0.0-0.3); EOSINOPHILS % (AUTO) 2 % (0-10); HEMATOCRIT 34 % (40-54); HEMOGLOBIN 11.4 G/DL (13.3-17.7); LYMPHOCYTES # (AUTO) 1.1 X 10^3 (1.0-4.0); LYMPHOCYTES % (AUTO) 7 % (12-44); MEAN CORPUSCULAR HEMOGLOBIN 28 PG (25-34); MEAN CORPUSCULAR HGB CONC 33 G/DL (32-36); MEAN CORPUSCULAR VOLUME 84 FL (80-99); MEAN PLATELET VOLUME 10.6 FL (7.4-10.4); MONOCYTES % (AUTO) 6 % (0-12); NEUTROPHILS # (AUTO) 13.1 X 10^3 (1.8-7.8); NEUTROPHILS % (AUTO) 85 % (42-75); PLATELET COUNT 282 10^3/uL (130-400); WHITE BLOOD COUNT 15.5 10^3/uL (4.3-11.0)
[2019-06-30] MEDS: inSUlin ASPART (NovoLOG) 1 UNIT/0.01 ML (CHARGE PER UNIT) SC SCH ×5 (05:54→21:19)
[2019-06-30 06:08] LABS: BUN/CREATININE RATIO 13; CALCIUM 8.4 MG/DL (8.5-10.1); CARBON DIOXIDE 21 MMOL/L (21-32); CHLORIDE 100 MMOL/L (98-107); CREATININE SERUM 0.87 MG/DL (0.60-1.30); GFR ESTIMATED > 60; GLUCOSE 271 MG/DL (70-105); POTASSIUM 3.8 MMOL/L (3.6-5.0); SODIUM 132 MMOL/L (135-145)
--- NOTE | 2019-06-30 06:50 | Pulmonary Progress Note ---
CORTEZ GONSALVES MED STUDENT 06/30/19 0650: Subjective Date Seen by a Provider: Jun 30, 2019 Time Seen by a Provider: 07:03 Subjective/Events-last exam Patient has not been cooperative with wearing his Vapotherm overnight, but he is currently wearing it. He states that he is fixing to leave and wants his sweet tea. He endorses shortness of breath on exertion and cough. He denies pedal edema, fever, chills. Sepsis Event Evaluation Height, Weight, BMI Height: 5'9.00" Weight: 251lbs. 0oz. 113.577712vi; 35.95 BMI Method:Actual Exam Exam Vital Signs Date Time Temp Pulse Resp B/P (MAP) Pulse Ox O2 Delivery O2 Flow Rate FiO2 06/30/19 04:00 36.8 87 24 170/78 (108) 100 Vapotherm 20.00 30.00 06/30/19 00:35 37.6 94 24 163/80 (107) 91 Vapotherm 20.00 30.00 06/29/19 22:54 Vapotherm 20.00 30 06/29/19 20:04 94 Vapotherm 20.00 30 06/29/19 20:00 Vapotherm 06/29/19 19:53 37.0 88 20 161/75 (103) 95 Vapotherm 20.00 30.00 06/29/19 16:31 37.3 90 20 167/84 (111) 95 Vapotherm 20.00 30.00 06/29/19 16:00 Vapotherm 25.00 35 06/29/19 15:34 95 Vapotherm 20.00 30 06/29/19 12:00 36.5 98 22 181/94 (123) 93 Vapotherm 20.00 30.00 06/29/19 11:21 98 Vapotherm 20.00 30 06/29/19 11:00 Vapotherm 25.00 35 06/29/19 10:47 93 Vapotherm 25.00 30 06/29/19 08:00 36.2 109 24 170/90 (116) 100 Vapotherm 06/29/19 08:00 Vapotherm 25.00 35 06/29/19 07:48 Vapotherm 20.00 30.00 06/29/19 07:45 97 06/29/19 07:38 96 Vapotherm 25.00 35 I & O 06/30/19 07:00 Intake Total 2690 ml Output Total 2600 ml Balance 90 ml Height & Weight Height: 5'9.00" Weight: 251lbs. 0oz. 113.314249kj; 35.95 BMI Method:Actual General Appearance: No Apparent Distress, Chronically ill, Obese HEENT: PERRL/EOMI, Moist Mucous Membranes Neck: Normal Inspection Respiratory: No Accessory Muscle Use, No Respiratory Distress, Other (on vapotherm) Cardiovascular: Regular Rate, Rhythm, No Murmur Capillary Refill: Less Than 3 Seconds Peripheral Pulses: 2+ Dorsalis Pedis (R), 2+ Left Dors-Pedis (L), 2+ Radial Pulses (R), 2+ Radial Pulses (L) Gastrointestinal: normal bowel sounds Extremity: Pedal Edema Neurologic/Psychiatric: Alert, Oriented x3 Skin: Normal Color, Warm/Dry Results Lab Laboratory Tests 06/29/19 03:30 06/30/19 05:00 06/30/19 05:20 Radiology 06/29/19 Chest Xray IMPRESSION: 1. Diffuse airspace disease in the left lung with questionable left pleural effusion. 2. Cardiomegaly and mild central pulmonary venous congestion. Assessment/Plan Assessment/Plan Severe Sepsis with BANDAR pneumonia -1 gm Ceftriaxone -Zosyn D/Cd -Urine Strep is positive -Urine legionella negative -Negative micro: Influenza A/b, MRSA nares, Blood cultures x2 CHF systolic and diastolic EF 35-40% -One dose 80mg Lasix IV given 06/29/19 -SL IVF -06/29/19 I&Os I: 2770 O: 4200 T: -1430 -BNP is 1188 Metabolic encephalopathy/ agitation -Precedex D/Cd -haldol PRN -1 mg BID Risperdal Lethargic -Monitor CP probably secondary to pneumonia -Cardiology also following NSTEMI type II LAINEY -Monitor -IVF Methamphetamine use -Education Tobacco use -Education COPD hx -on Vapotherm, not fully compliant -Duoneb Q4hr RT -pt. refusing -Duoneb Q2hr PRN DIPESH PARKS DO 06/30/19 0731: Subjective Time Seen by a Provider: 07:27 Subjective/Events-last exam PT has been noncompliant. RN states pt will not leave oxygen on and he continues to leave 4th floor without telling anyone. Pt told the RN he wants to go home. I told pt this AM if he goes home it has to be AMA. We provided pt with AMA papers and he did sign them. He understands clearly if he goes home his respiratory status may worsen and he is at risk of . We will try to get him home oxygen arrange prior to him leaving and send PO Abx to his pharmacy. Exam Exam General Appearance: No Apparent Distress, Chronically ill, Obese HEENT: PERRL/EOMI, Moist Mucous Membranes Neck: Normal Inspection Respiratory: No Accessory Muscle Use, No Respiratory Distress Cardiovascular: Regular Rate, Rhythm, No Murmur Gastrointestinal: normal bowel sounds Extremity: Pedal Edema Neurologic/Psychiatric: Alert, Oriented x3 Skin: Normal Color, Warm/Dry Assessment/Plan Assessment/Plan Severe Sepsis with BANDAR pneumonia - improving -PT is not medically ready for discharge yet however it appears pt is going to leave AMA. -Will need home oxygen. -1 gm Ceftriaxone -Zosyn D/Cd -Urine Strep is positive -Urine legionella negative -Negative micro: Influenza A/b, MRSA nares, Blood cultures x2 CHF systolic and diastolic EF 35-40% -One dose 80mg Lasix IV given 06/29/19 -SL IVF -06/29/19 I&Os I: 2770 O: 4200 T: -1430 -BNP is 1188 Metabolic encephalopathy/ agitation -Precedex D/Cd -haldol PRN -1 mg BID Risperdal Lethargic -Monitor CP probably secondary to pneumonia -Cardiology also following NSTEMI type II LAINEY -Monitor -IVF Methamphetamine use -Education Tobacco use -Education COPD hx -on Vapotherm, not fully compliant -Duoneb Q4hr RT -pt. refusing -Duoneb Q2hr PRN Supervisory-Addendum Brief Verification & Attestation Participated in pt care: history Personally performed: exam, history Care discussed with: Medical Student Procedures: n/a Verification and Attestation of Medical Student E/M Service A medical student performed and documented this service in my presence. I reviewed and verified all information documented by the medical student and made modifications to such information, when appropriate. I personally performed the physical exam and medical decision making. Dipesh Parks, Jul 03, 2019,14:57 CORTEZ GONSALVES STUDENT Jun 30, 2019 06:50 DIPESH MIRNADA DO Jun 30, 2019 07:31 POS
--- NOTE | 2019-06-30 07:25 | NUR ---
PT VERY UPSET -- WANTING TO GO AMA -- STAFF HAS EXPLAINED NEED TO KEEP OS ON AND THAT HE IS ON VAPOR THERM AND NEEDS TO KEEP O2 ON -- PT WANTS TO TAKE IT OFF AND ON AND DEMANDING SWEET TEA -- PT IS ONE ON ONE AND - SITTER WAS TOLD IT WOULD BE GOTTEN QUICKLY POSSIBLE STAFF IN REPORT -- DR VÁSQUEZ ON FLOOR AND ADVISED HE VOICED TO GET THE AMA PAPERS AND HE WOULD GO IN RM WITH STAFF -- HE EXPLAINED TOE AMA PAPER AND PT SIGNED BUT VOICED HE WOULD NEED O2 AT HOME -- DR VÁSQUEZ WILL GET ORDER IN AND PT WILL STILL BE LEAVING AMA -- O2 WAS CHANGED TO 6L/NC IN RM -- SITTER REMAINS IN RM -- PT SATS AT 96% -- THIS RN LEFT MESSAGE FOR Yadiel AYALA ABOUT HOME O2 -- 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
[2019-06-30] MEDS ORDERED: KCL 20 MEQ TAB (K-DUR) PO ONE (07:45)
[2019-06-30] MEDS ORDERED: FUROSEMIDE 40 MG/4 ML INJ (LASIX) IVP ONE (07:45)
--- NOTE | 2019-06-30 07:57 | Diagnostic Imaging Report ---
INDICATION: Pneumonia. COMPARISON: June 29, 2019. TECHNIQUE: Single radiograph of the chest dated June 30, 2019 FINDINGS: The cardiac silhouette is enlarged. No significant pulmonary vascular congestion. The right lung is clear. Extensive pulmonary infiltrates within the left lung are again identified, though improved since the prior examination. Small left pleural effusion is suspected. No significant right pleural effusion. No pneumothorax. No acute osseous abnormality. IMPRESSION: Improved though persistent extensive opacities throughout the left lung which may relate to pneumonia or edema. Persistent cardiomegaly without significant central pulmonary vascular congestion. Dictated by: Dictated on workstation # [id number]
--- NOTE | 2019-06-30 08:23 | Physical Therapy Progress Note ---
Therapy Progress Note PT to dismiss patient from services due to noncompliance, refusal and reports up independently without difficulty. Patient continues to require O2 and, per report, is noncompliant with use. RN notified of PT dismissing patient from services. ref/dc SAMANTHA ELI PT Jun 30, 2019 08:23 POS
[2019-06-30] MEDS: CALCIUM CARBONATE 500 MG (TUMS) TAB.CHEW PO PRN (09:39)
[2019-06-30] MEDS: risperiDONE 1 MG (RisperDAL) TAB PO SCH ×2 (09:39→19:41)
[2019-06-30] MEDS: amLODIPine 10 MG (NORVASC) TAB PO SCH (09:39)
[2019-06-30] MEDS: PREGABALIN 25 MG (LYRICA) CAPSULE PO SCH ×2 (09:39→19:41)
--- NOTE | 2019-06-30 10:19 | NUR ---
patient placed on room air for 60 min. sat dropped to 87% then placed back on oxygen at 2 l/m sat came up to 95% recommend 2-4 l/m when exercising Addendum: 06/30/19 at 1020 by CICI PINEDA RT Amended: Links added.
--- NOTE | 2019-06-30 10:56 | NUR ---
NOTE THAT PT HAS CHANGED HIS MIND AND WILL NOT GO AMA -- THIS RN AND DR ZAVALETA AND Yadiel AYALA TALKED WITH PT -- HE AGREED TO BE MORE COOPERATIVE WITH STAFF AND TO UNDERSTAND WHEN STAFF IS HE SAYS BEING GROUCHY -- ARE TRYING TO KEEP PT SAFE AND COMPLIANT TO ORDERS -- SLEEP STUDY WAS DONE -- PER DR ZAVALETA'S ORDERS
--- NOTE | 2019-06-30 11:42 | Progress Note - Hospitalist ---
Subjective HPI/CC On Admission Date Seen by Provider: Jun 30, 2019 Time Seen by Provider: 10:00 Pt is a 59yoCM with a PMH of HTN, IDDMII, HLD who presented to the ER duet o 5 day history of chest pain and shortness of breath. He denies any precipitating factors when this started or any other symptoms associated with it. He has not h istory of chest pain or previous episodes. He was very vague in his history and stated "I'm not admitting to anything" when asked for more details regarding his history. He does state that he has had "stomach problems" for the past 9 months. Could not elaborate further. He is an insulin-dependent diabetic who reports he takes insulin 3 times a day but he is not sure what kind. He also states he's been off his medicines for a while but could not indicate why. He is laying quite flat in bed and when asked to sit up to help with breathing he refused. He stated he wanted me to give him a sleeping pill to just "knock him out. Subjective/Events-last exam Reviewed events from overnight. Patient now agreeable to stay. Discussed need for compliance with treatment here in the hospital and to treat nurses and all other staff with respect. he agrees to this plan. Objective Exam Vital Signs Vital Signs Date Time Temp Pulse Resp B/P (MAP) Pulse Ox O2 Delivery O2 Flow Rate FiO2 06/30/19 10:16 93 6.00 06/30/19 08:00 Vapotherm 06/30/19 06:45 30 06/30/19 04:00 36.8 87 24 170/78 (108) Capillary Refill : Less Than 3 Seconds General Appearance: No Apparent Distress, Chronically ill, Obese Respiratory: No Respiratory Distress, Decreased Breath Sounds; No Wheezing Cardiovascular: Regular Rate, Rhythm, No Murmur Neurologic/Psychiatric: Alert, Oriented x3, Depressed Affect Results/Procedures Lab Laboratory Tests 06/30/19 05:00 06/30/19 05:20 Patient resulted labs reviewed. Imaging: Reviewed Imaging Films, Reviewed Imaging Report Assessment/Plan Assessment and Plan Assess & Plan/Chief Complaint Septic Shock- resolved CAP Left sided pneumonia- step pna antigen positive Continue Rocephin Pulm consulted appreciate recs Blood cultures with NGTD Wean oxygen as able IDDMII Diabetic neuropathy SSI A1c 11.6 Increase levemir Lyrica HTN HLD Chest Pain CHF Cardiology consulted, appreciate recs troponin slightly elevated, managed by cardiology echo shows Ef of 35%- cannot be on JACKIE due to angioedema Amlodipine lasix repeated today Substance Abuse Denies use to me UDS + for meth Critical illness myopathyu PT/OT Consider swing bed DVT ppx: Lovenox Diagnosis/Problems Diagnosis/Problems (1) Septic shock (2) Insulin dependent diabetes mellitus Status: Chronic (3) Methamphetamine use Status: Acute (4) Pneumonia Status: Acute Qualifiers: Pneumonia type: due to unspecified organism Laterality: left Lung location: unspecified part of lung Qualified Codes: J18.9 - Pneumonia, unspecified organism (5) Uncontrolled diabetes mellitus Status: Acute Qualifiers: Diabetes mellitus type: type 2 Glycemic state: with hyperglycemia Qualified Codes: E11.65 - Type 2 diabetes mellitus with hyperglycemia (6) Uncontrolled hypertension Status: Acute (7) Non-compliance Status: Acute Clinical Quality Measures AMI/AHF: ASA po Prior to arrival: No DVT/VTE Risk/Contraindication: Risk Factor Score Per Nursin RFS Level Per Nursing on Admit: 4+=Very High CHET ZAVALETA MD Jun 30, 2019 11:42 POS
[2019-06-30 12:00] VITALS: BP 141/78
[2019-06-30] MEDS: ENOXAPARIN 40 MG/0.4 ML (LOVENOX) SYR SC SCH (12:57)
[2019-06-30] MEDS: RT-LEVALBUTEROL (XOPENEX) 1.25 MG/3 ML NEB NON-FORMULARY INH SCH ×5 (15:42→21:59)
[2019-06-30 15:55] VITALS: BP 131/70
--- NOTE | 2019-06-30 15:59 | NUR ---
Pt agreeable to remain in hospital until physician agrees with discharge back to his apt. Pt chose [facility] as oxygen provider . Faxed home oxygen study and demographic sheet to DME if pt discharged over the week-end. The Home Study was completed Jun.30 at 10:20.
[2019-06-30] MEDS: cefTRIAXone 1,000 MG/SWFI 10 ML IV PUSH IV SCH ×2 (16:17)
--- NOTE | 2019-06-30 16:39 | Progress Note - Cardiology ---
Cardiology SOAP Progress Note Subjective: Still short of breath No cp or palp or syncope Gen malaise and weakness present Objective: I&O/Vital Signs 06/30/19 06/30/19 06/30/19 06/30/19 06:45 08:00 08:00 10:16 Pulse 84 Resp 24 B/P (MAP) Pulse Ox 98 97 93 O2 Delivery Vapotherm Nasal Cannula Vapotherm O2 Flow Rate 20.00 6.00 6.00 FiO2 30 06/30/19 06/30/19 06/30/19 12:00 15:44 15:55 Temp 36.9 37.9 Pulse 85 87 Resp 20 22 B/P (MAP) 141/78 (99) 131/70 (90) Pulse Ox 94 91 93 O2 Delivery Nasal Cannula Nasal Cannula Nasal Cannula O2 Flow Rate 2.00 3.00 2.00 06/30/19 00:00 Intake Total 1990 ml Output Total 2400 ml Balance -410 ml Weight (Pounds): 251 Weight (Ounces): 0 Weight (Calculated Kilograms): 113.752570 Constitutional: AAO x 3, well-developed, well-nourished Respiratory: chest expansion is symmetric, chest is bilaterally symmetric, other (fair air entry) Cardiovascular: regular rate-rhythm; No JVD; S1 and S2 Gastrointestional: round, audible bowel sounds Extremities: no lower extremity edema bilateral Neurologic/Psychiatric: grossly intact (moves all extremities) Skin: No rash on exposed areas, No ulcerations on exposed areas Results/Procedures: Labs Laboratory Tests 06/29/19 20:54: Glucometer 230H 06/30/19 05:00: Sodium Level 132L, Potassium Level 3.8, Chloride Level 100, Carbon Dioxide Level 21, Anion Gap 11, Blood Urea Nitrogen 11, Creatinine 0.87, Estimat Glomerular Filtration Rate > 60, BUN/Creatinine Ratio 13, Glucose Level 271H, Calcium Level 8.4L 06/30/19 05:20: White Blood Count 15.5H, Red Blood Count 4.09L, Hemoglobin 11.4L, Hematocrit 34L , Mean Corpuscular Volume 84, Mean Corpuscular Hemoglobin 28, Mean Corpuscular Hemoglobin Concent 33, Red Cell Distribution Width 15.0H, Platelet Count 282, Mean Platelet Volume 10.6H, Neutrophils (%) (Auto) 85H, Lymphocytes (%) (Auto) 7L, Monocytes (%) (Auto) 6, Eosinophils (%) (Auto) 2, Basophils (%) (Auto) 1, Neutrophils # (Auto) 13.1H, Lymphocytes # (Auto) 1.1, Monocytes # (Auto) 1.0, Eosinophils # (Auto) 0.2, Basophils # (Auto) 0.1 06/30/19 05:29: Glucometer 263H 06/30/19 11:35: Glucometer 264H 06/30/19 15:53: Glucometer 218H Microbiology 06/26/19 Blood Culture - Preliminary, Resulted No growth 06/28/19 MRSA Screen - Final, Complete MRSA not isolated Laboratory Tests 06/29/19 03:30 06/30/19 05:00 06/30/19 05:20 A/P: Assessment: Chest discomfort of undetermined etiology - improved Mildly elevated troponin likely Type 2 TX r/t pneumonia, renal insufficiency and hypoxia Dilated cardiomyopathy. Echo of 06/27/19: LVEF 35-40%, mild enlargement of LA, grade 2 diastolic dysfunction, mild to mod MR & TR, RVSP 22 mmHg Pneumonia with sepsis - management per Medical/Pulmonary services Acute renal insufficiency -improving Large area of dense consolidation of the left upper lobe, concerning for alveolar pneumonia. Small left effusion. Mild cardiomegaly with mild scattered calcified aortic atherosclerosis. Multiple enlarged mediastinal lymph nodes, possibly reactive Per CTA of 06-26-19 (+) Methamphetamine use Hyponatremia - improving HTN HLD DM Chronic abd pain - followed by his PCP COPD Quit smoking approx 20 yrs ago Plan: * Continue current regimen * Monitor labs Clinical Quality Measures AMI/AHF: ASA po Prior to arrival: RYNE Gordon MD FACP FACC CCDS Jun 30, 2019 16:39 POS
[2019-06-30] MEDS: MELATONIN 3 MG TABLET PO SCH (19:41)
[2019-06-30 20:10] VITALS: BP 138/83
[2019-06-30 23:03] VITALS: BP 148/83
[2019-07-01] MEDS: RT-LEVALBUTEROL (XOPENEX) 1.25 MG/3 ML NEB NON-FORMULARY INH SCH ×6 (02:18→22:31)
[2019-07-01 03:50] VITALS: BP 162/84
[2019-07-01] MEDS: inSUlin ASPART (NovoLOG) 1 UNIT/0.01 ML (CHARGE PER UNIT) SC SCH ×4 (05:35→20:38)
[2019-07-01] MEDS: meTOprolol 5 MG/5 ML (LOPRESSOR) VIAL IV SCH (06:10)
--- NOTE | 2019-07-01 06:40 | Pulmonary Progress Note ---
Subjective Time Seen by a Provider: 06:39 Subjective/Events-last exam PT decided not to leave AMA yesterday. His oxygenation has improved. Currently on 2 liters NC. Sepsis Event Evaluation Height, Weight, BMI Height: 5'9.00" Weight: 251lbs. 0oz. 113.372548yy; 35.95 BMI Method:Actual Exam Exam Vital Signs Date Time Temp Pulse Resp B/P (MAP) Pulse Ox O2 Delivery O2 Flow Rate FiO2 07/01/19 03:50 36.5 66 21 162/84 (110) 91 Nasal Cannula 2.00 07/01/19 02:18 66 18 98 50.00 06/30/19 23:03 37.7 76 20 148/83 (104) 96 NIV Bilevel 06/30/19 22:03 80 21 100 50.00 06/30/19 20:10 37.7 84 20 138/83 (101) 92 Nasal Cannula 2.00 06/30/19 20:00 Nasal Cannula 2.00 06/30/19 17:59 94 Nasal Cannula 2.00 06/30/19 17:53 82 92 2.00 06/30/19 15:55 37.9 87 22 131/70 (90) 93 Nasal Cannula 2.00 06/30/19 15:44 91 Nasal Cannula 3.00 06/30/19 12:00 36.9 85 20 141/78 (99) 94 Nasal Cannula 2.00 06/30/19 10:16 93 6.00 06/30/19 08:00 Vapotherm 06/30/19 08:00 84 24 97 Nasal Cannula 6.00 06/30/19 06:45 98 Vapotherm 20.00 30 I & O 07/01/19 07:00 Intake Total 1180 ml Balance 1180 ml Height & Weight Height: 5'9.00" Weight: 251lbs. 0oz. 113.672390zg; 35.95 BMI Method:Actual General Appearance: No Apparent Distress, Chronically ill, Obese HEENT: PERRL/EOMI, Moist Mucous Membranes Neck: Normal Inspection Respiratory: No Respiratory Distress, Decreased Breath Sounds; No Wheezing Cardiovascular: Regular Rate, Rhythm, No Murmur Capillary Refill: Less Than 3 Seconds Peripheral Pulses: 2+ Dorsalis Pedis (R), 2+ Left Dors-Pedis (L), 2+ Radial Pulses (R), 2+ Radial Pulses (L) Gastrointestinal: normal bowel sounds Extremity: Pedal Edema Neurologic/Psychiatric: Alert, Oriented x3, Depressed Affect Skin: Normal Color, Warm/Dry Results Lab Laboratory Tests 06/30/19 05:00 06/30/19 05:20 Assessment/Plan Assessment/Plan Severe Sepsis with BANDAR pneumonia -Ceftriaxone -Urine Strep is positive -Urine legionella negative -Now on 2 liter NC CHF systolic and diastolic EF 35-40% Metabolic encephalopathy/ agitation -haldol PRN -1 mg BID Risperdal NSTEMI type II LAINEY -Monitor -IVF Methamphetamine use -Education Tobacco use -Education COPD hx -Duoneb Q4hr -Duoneb Q2hr PRN AMINAH VÁSQUEZ DO Jul 01, 2019 06:40 POS
[2019-07-01 06:49] LABS: BASOPHILS # (AUTO) 0.4 10^3/uL (0.0-0.1); BASOPHILS % (AUTO) 2 % (0-10); EOSINOPHILS # (AUTO) 0.5 10^3/uL (0.0-0.3); EOSINOPHILS % (AUTO) 3 % (0-10); HEMATOCRIT 34 % (40-54); LYMPHOCYTES # (AUTO) 2.8 X 10^3 (1.0-4.0); LYMPHOCYTES % (AUTO) 15 % (12-44); MEAN CORPUSCULAR HEMOGLOBIN 28 PG (25-34); MEAN CORPUSCULAR HGB CONC 33 G/DL (32-36); MEAN CORPUSCULAR VOLUME 85 FL (80-99); MONOCYTES # (AUTO) 0.8 X 10^3 (0.0-1.0); MONOCYTES % (AUTO) 4 % (0-12); NEUTROPHILS # (AUTO) 14.4 X 10^3 (1.8-7.8); NEUTROPHILS % (AUTO) 76 % (42-75); PLATELET COUNT 432 10^3/uL (130-400); RED CELL DISTRIBUTION WIDTH 15.3 % (10.0-14.5); WHITE BLOOD COUNT 18.9 10^3/uL (4.3-11.0)
--- NOTE | 2019-07-01 06:56 | Diagnostic Imaging Report ---
INDICATION: Pneumonia. Comparison is made with prior examination from 06/30/2019. FINDINGS: There is a left pulmonary infiltrate suspect for pneumonia with a left pleural effusion. There is cardiomegaly. Right lung is clear. There is no pneumothorax. IMPRESSION: Diffuse infiltrate left lung suspect for pneumonia with a left pleural effusion. Cardiomegaly Dictated by: Dictated on workstation # [id number]
[2019-07-01 07:04] LABS: BUN/CREATININE RATIO 18; CALCIUM 8.6 MG/DL (8.5-10.1); CARBON DIOXIDE 22 MMOL/L (21-32); CHLORIDE 103 MMOL/L (98-107); CREATININE SERUM 0.79 MG/DL (0.60-1.30); GFR ESTIMATED > 60; GLUCOSE 124 MG/DL (70-105); POTASSIUM 3.8 MMOL/L (3.6-5.0); SODIUM 137 MMOL/L (135-145)
[2019-07-01 08:00] VITALS: BP_SYST 160; BP_SYST 176; BP_DIAS 76; BP_DIAS 94
[2019-07-01] MEDS: amLODIPine 10 MG (NORVASC) TAB PO SCH (08:28)
[2019-07-01] MEDS: risperiDONE 1 MG (RisperDAL) TAB PO SCH ×2 (08:28→19:57)
[2019-07-01] MEDS: PREGABALIN 25 MG (LYRICA) CAPSULE PO SCH ×2 (08:28→19:57)
[2019-07-01] MEDS: ENOXAPARIN 40 MG/0.4 ML (LOVENOX) SYR SC SCH (10:02)
[2019-07-01 12:00] VITALS: BP 130/71
--- NOTE | 2019-07-01 12:00 | Progress Note - Hospitalist ---
Subjective HPI/CC On Admission Date Seen by Provider: Jul 01, 2019 Time Seen by Provider: 11:56 Pt is a 59yoCM with a PMH of HTN, IDDMII, HLD who presented to the ER duet o 5 day history of chest pain and shortness of breath. He denies any precipitating factors when this started or any other symptoms associated with it. He has not h istory of chest pain or previous episodes. He was very vague in his history and stated "I'm not admitting to anything" when asked for more details regarding his history. He does state that he has had "stomach problems" for the past 9 months. Could not elaborate further. He is an insulin-dependent diabetic who reports he takes insulin 3 times a day but he is not sure what kind. He also states he's been off his medicines for a while but could not indicate why. He is laying quite flat in bed and when asked to sit up to help with breathing he refused. He stated he wanted me to give him a sleeping pill to just "knock him out. Subjective/Events-last exam patient reports having persistent pain. States Lyrica is not helping his legs. States this is why he uses home because no doctors will give him pain medicine. Despite this he says he has stock piled hydrocodone at home that he takes with his pain is very severe. He also has not been working with physical therapy. He states he is agreeable at this time and has been up in the chair. He also reports he would like to go down to get a cupcake later but doesn't want to wait to get portable oxygen. When I advised him to wait for portable oxygen because his oxygen dropped to 40 the last time he did this he shrugged his shoulders. Objective Exam Vital Signs Vital Signs Date Time Temp Pulse Resp B/P (MAP) Pulse Ox O2 Delivery O2 Flow Rate FiO2 07/01/19 10:39 95 Nasal Cannula 2.00 07/01/19 08:00 37.1 66 18 160/94 (116) 06/30/19 06:45 30 Capillary Refill : Less Than 3 Seconds General Appearance: No Apparent Distress, Chronically ill Respiratory: Lungs Clear, No Respiratory Distress; No Rhonci, No Wheezing Cardiovascular: Regular Rate, Rhythm, No Murmur Neurologic/Psychiatric: Alert, Oriented x3, Depressed Affect Results/Procedures Lab Laboratory Tests 07/01/19 06:15 Patient resulted labs reviewed. Imaging: Reviewed Imaging Films, Reviewed Imaging Report Assessment/Plan Assessment and Plan Assess & Plan/Chief Complaint Septic Shock- resolved CAP Left sided pneumonia- step pna antigen positive Continue Rocephin Pulm consulted appreciate recs Blood cultures with NGTD Wean oxygen as able Advised him on the importance of compliance with meds, therapy, and oxygen IDDMII Diabetic neuropathy SSI A1c 11.6 Increased levemir has helped, fasting blood sugar 124 Lyrica HTN HLD Chest Pain CHF Cardiology consulted, appreciate recs troponin slightly elevated, managed by cardiology echo shows Ef of 35%- cannot be on JACKIE due to angioedema Amlodipine, add oral metoprolol Substance Abuse Now admits to meth use due to pain UDS + for meth Critical illness myopathy PT/OT- advise to work with therapy DVT ppx: Lovenox Diagnosis/Problems Diagnosis/Problems (1) Septic shock (2) Insulin dependent diabetes mellitus Status: Chronic (3) Methamphetamine use Status: Acute (4) Pneumonia Status: Acute Qualifiers: Pneumonia type: due to unspecified organism Laterality: left Lung location: unspecified part of lung Qualified Codes: J18.9 - Pneumonia, unspecified organism (5) Uncontrolled diabetes mellitus Status: Acute Qualifiers: Diabetes mellitus type: type 2 Glycemic state: with hyperglycemia Q ualified Codes: E11.65 - Type 2 diabetes mellitus with hyperglycemia (6) Uncontrolled hypertension Status: Acute (7) Non-compliance Status: Acute Clinical Quality Measures AMI/AHF: ASA po Prior to arrival: No DVT/VTE Risk/Contraindication: Risk Factor Score Per Nursin RFS Level Per Nursing on Admit: 4+=Very High CHET ZAVALETA MD Jul 01, 2019 12:00 POS
[2019-07-01] MEDS ORDERED: meTOprolol TARTRATE 25 MG (LOPRESSOR) TABLET PO NR (12:02)
[2019-07-01] MEDS: ACETAMINOPHEN 500 MG TAB (TYLENOL) PO SCH ×2 (13:09→17:07)
[2019-07-01] MEDS: cefTRIAXone 1,000 MG/SWFI 10 ML IV PUSH IV SCH ×2 (13:10)
--- NOTE | 2019-07-01 14:48 | Progress Note - Cardiology ---
Cardiology SOAP Progress Note Subjective: Shortness of breath improving very slowly Does not report cp or palp or syncope Objective: I&O/Vital Signs 07/01/19 07/01/19 07/01/19 07/01/19 03:50 07:31 08:00 08:25 Temp 36.5 37.1 Pulse 66 66 Resp 21 18 B/P (MAP) 162/84 (110) 160/94 (116) Pulse Ox 91 95 91 O2 Delivery Nasal Cannula Nasal Cannula Nasal Cannula Nasal Cannula O2 Flow Rate 2.00 2.00 2.00 2.00 07/01/19 07/01/19 10:39 12:00 Temp 36.5 Pulse 84 Resp 22 B/P (MAP) 130/71 (90) Pulse Ox 95 95 O2 Delivery Nasal Cannula Nasal Cannula O2 Flow Rate 2.00 2.00 07/01/19 00:00 Intake Total 940 ml Balance 940 ml Weight (Pounds): 251 Weight (Ounces): 0 Weight (Calculated Kilograms): 113.264316 Constitutional: AAO x 3, well-developed, well-nourished Respiratory: chest expansion is symmetric, chest is bilaterally symmetric, other (fair air entry) Cardiovascular: regular rate-rhythm; No JVD; S1 and S2 Gastrointestional: round, audible bowel sounds Extremities: no lower extremity edema bilateral Neurologic/Psychiatric: grossly intact (moves all extremities) Skin: No rash on exposed areas, No ulcerations on exposed areas Results/Procedures: Labs Laboratory Tests 06/30/19 15:53: Glucometer 218H 06/30/19 20:08: Glucometer 251H 07/01/19 05:34: Glucometer 130H 07/01/19 06:15: White Blood Count 18.9H, Red Blood Count 3.98L, Hemoglobin 11.0L, Hematocrit 34L , Mean Corpuscular Volume 85, Mean Corpuscular Hemoglobin 28, Mean Corpuscular Hemoglobin Concent 33, Red Cell Distribution Width 15.3H, Platelet Count 432H, Mean Platelet Volume 10.0, Neutrophils (%) (Auto) 76H, Lymphocytes (%) (Auto) 15, Monocytes (%) (Auto) 4, Eosinophils (%) (Auto) 3, Basophils (%) (Auto) 2, Neutrophils # (Auto) 14.4H, Lymphocytes # (Auto) 2.8, Monocytes # (Auto) 0.8, Eosinophils # (Auto) 0.5H, Basophils # (Auto) 0.4H, Sodium Level 137, Potassium Level 3.8, Chloride Level 103, Carbon Dioxide Level 22, Anion Gap 12, Blood Urea Nitrogen 14, Creatinine 0.79, Estimat Glomerular Filtration Rate > 60, BUN/Creatinine Ratio 18, Glucose Level 124H, Calcium Level 8.6 07/01/19 10:58: Glucometer 253H Microbiology 06/26/19 Blood Culture - Preliminary, Resulted No growth 06/28/19 MRSA Screen - Final, Complete MRSA not isolated Laboratory Tests 06/30/19 05:00 06/30/19 05:20 07/01/19 06:15 A/P: Assessment: Chest discomfort of undetermined etiology - resolved Mildly elevated troponin likely Type 2 [place] r/t pneumonia, renal insufficiency and hypoxia Dilated cardiomyopathy. Echo of 06/27/19: LVEF 35-40%, mild enlargement of LA, grade 2 diastolic dysfunction, mild to mod MR & TR, RVSP 22 mmHg Pneumonia with sepsis - management per Medical/Pulmonary services Acute renal insufficiency - resolved Large area of dense consolidation of the left upper lobe, concerning for alveolar pneumonia. Small left effusion. Mild cardiomegaly with mild scattered calcified aortic atherosclerosis. Multiple enlarged mediastinal lymph nodes, possibly reactive Per CTA of 06-26-19 (+) Methamphetamine use Hyponatremia - improving HTN HLD DM Chronic abd pain - followed by his PCP COPD Quit smoking approx 20 yrs ago Plan: * Given uncontrolled hypertension and dilated cardiomyopathy, we recommend bb and ARB (nonspecific allergy to JACKIE-inhib) * Monitor labs Clinical Quality Measures AMI/AHF: ASA po Prior to arrival: RYNE Gordon MD FACP FAC CCDS Jul 01, 2019 14:48 POS
[2019-07-01] MEDS ORDERED: LOSARTAN 25 MG (COZAAR) TAB PO NR (15:15)
[2019-07-01 16:14] VITALS: BP 151/79
[2019-07-01 19:45] VITALS: BP 141/67
[2019-07-01] MEDS: MELATONIN 3 MG TABLET PO SCH (19:57)
[2019-07-01] MEDS: meTOprolol TARTRATE 50 MG (LOPRESSOR) TAB PO SCH (19:57)
[2019-07-02] MEDS: diphenhydrAMINE 25 MG TAB (BENADRYL) PO PRN (00:26)
[2019-07-02] MEDS: ACETAMINOPHEN 500 MG TAB (TYLENOL) PO SCH ×4 (00:26→18:10)
[2019-07-02 00:38] VITALS: BP 130/74
[2019-07-02] MEDS: RT-LEVALBUTEROL (XOPENEX) 1.25 MG/3 ML NEB NON-FORMULARY INH SCH ×6 (02:09→22:58)
[2019-07-02] MEDS: inSUlin ASPART (NovoLOG) 1 UNIT/0.01 ML (CHARGE PER UNIT) SC SCH ×4 (05:31→20:44)
[2019-07-02 06:08] LABS: BASOPHILS # (AUTO) 0.3 10^3/uL (0.0-0.1); BASOPHILS % (AUTO) 2 % (0-10); EOSINOPHILS # (AUTO) 0.4 10^3/uL (0.0-0.3); EOSINOPHILS % (AUTO) 3 % (0-10); HEMATOCRIT 36 % (40-54); HEMOGLOBIN 11.7 G/DL (13.3-17.7); LYMPHOCYTES # (AUTO) 3.1 X 10^3 (1.0-4.0); LYMPHOCYTES % (AUTO) 19 % (12-44); MEAN CORPUSCULAR HEMOGLOBIN 28 PG (25-34); MEAN CORPUSCULAR HGB CONC 33 G/DL (32-36); MEAN CORPUSCULAR VOLUME 85 FL (80-99); MEAN PLATELET VOLUME 9.9 FL (7.4-10.4); MONOCYTES # (AUTO) 0.5 X 10^3 (0.0-1.0); MONOCYTES % (AUTO) 3 % (0-12); NEUTROPHILS # (AUTO) 12.2 X 10^3 (1.8-7.8); NEUTROPHILS % (AUTO) 74 % (42-75); PLATELET COUNT 463 10^3/uL (130-400); RED CELL DISTRIBUTION WIDTH 14.9 % (10.0-14.5); WHITE BLOOD COUNT 16.5 10^3/uL (4.3-11.0)
[2019-07-02 06:37] LABS: BUN/CREATININE RATIO 11; CALCIUM 8.8 MG/DL (8.5-10.1); CARBON DIOXIDE 22 MMOL/L (21-32); CHLORIDE 101 MMOL/L (98-107); CREATININE SERUM 0.97 MG/DL (0.60-1.30); GFR ESTIMATED > 60; POTASSIUM 4.3 MMOL/L (3.6-5.0); SODIUM 134 MMOL/L (135-145)
[2019-07-02 06:41] LABS: GLUCOSE 445 MG/DL (70-105)
--- NOTE | 2019-07-02 07:46 | Diagnostic Imaging Report ---
CHEST 1 VIEW, AP/PA ONLY Indication: Dyspnea, pneumonia surveillance Comparison: 07/01/2019 Findings: Near total consolidation in the left lung is unchanged. Left pleural effusion is similar. Mild volume loss in the left hemithorax is similar. Right lung remains clear. No pneumothorax. Grossly stable cardiomediastinal silhouette. Impression: 1. No adverse development or improvement in the interim. Dictated by: Dictated on workstation # [id number]
[2019-07-02 08:00] VITALS: BP 176/87
[2019-07-02 08:04] LABS: BAND NEUTROPHILS 2 %; EOSINOPHILS % (MANUAL) 3 %; LYMPHOCYTES % (MANUAL) 20 %; MONOCYTES % (MANUAL) 3 %; NEUTROPHILS % (MANUAL) 62 %
[2019-07-02 08:05] LABS: ATYPICAL LYMPHOCYTES 7 %; METAMYELOCYTES % 3 %
[2019-07-02] MEDS: amLODIPine 10 MG (NORVASC) TAB PO SCH (08:44)
[2019-07-02] MEDS: meTOprolol TARTRATE 50 MG (LOPRESSOR) TAB PO SCH ×2 (08:45→19:52)
[2019-07-02] MEDS: risperiDONE 1 MG (RisperDAL) TAB PO SCH ×2 (08:45→19:52)
[2019-07-02] MEDS: PREGABALIN 25 MG (LYRICA) CAPSULE PO SCH ×2 (08:45→19:52)
[2019-07-02] MEDS ORDERED: LOSARTAN 25 MG (COZAAR) TAB PO SCH (09:00)
[2019-07-02] MEDS: ENOXAPARIN 40 MG/0.4 ML (LOVENOX) SYR SC SCH ×2 (10:34→19:53)
[2019-07-02] MEDS: oxyCODONE/APAP 5/325MG (PERCOCET 5) TABLET PO PRN ×2 (11:35→16:48)
--- NOTE | 2019-07-02 12:34 | Progress Note - Hospitalist ---
Subjective HPI/CC On Admission Date Seen by Provider: Jul 02, 2019 Time Seen by Provider: 12:31 Pt is a 59yoCM with a PMH of HTN, IDDMII, HLD who presented to the ER duet o 5 day history of chest pain and shortness of breath. He denies any precipitating factors when this started or any other symptoms associated with it. He has not history of chest pain or previous episodes. He was very vague in his history and stated "I'm not admitting to anything" when asked for more details regarding his history. He does state that he has had "stomach problems" for the past 9 months. Could not elaborate further. He is an insulin-dependent diabetic who reports he takes insulin 3 times a day but he is not sure what kind. He also states he's been off his medicines for a while but could not indicate why. He is laying quite flat in bed and when asked to sit up to help with breathing he refused. He stated he wanted me to give him a sleeping pill to just "knock him out. Subjective/Events-last exam Pt is sleeping in bed. Just received pain medication. States not helping yet. Blood sugar very elevated this morning. States ate a cupcake in the middle of the night. Objective Exam Vital Signs Vital Signs Date Time Temp Pulse Resp B/P (MAP) Pulse Ox O2 Delivery O2 Flow Rate FiO2 07/02/19 10:49 95 Room Air 07/02/19 08:00 37.2 67 20 176/87 (116) 2.00 06/30/19 06:45 30 Capillary Refill : Less Than 3 Seconds General Appearance: No Apparent Distress, Chronically ill, Obese Respiratory: Lungs Clear, No Accessory Muscle Use, No Respiratory Distress Cardiovascular: Regular Rate, Rhythm, No Murmur Gastrointestinal: Normal Bowel Sounds, Non Tender, Soft Neurologic/Psychiatric: Alert, Oriented x3 Results/Procedures Lab Laboratory Tests 07/02/19 05:55 Patient resulted labs reviewed. Imaging: Reviewed Imaging Films, Reviewed Imaging Report Assessment/Plan Assessment and Plan Assess & Plan/Chief Complaint Septic Shock- resolved CAP Left sided pneumonia- step pna antigen positive Continue Rocephin Pulm consulted appreciate recs Blood cultures with NGTD Wean oxygen as able, was on room air during my exam Can likely DC tomorrow after social work assistance IDDMII Diabetic neuropathy SSI A1c 11.6 Will not increase levemir as hyperglycemia this am due to cupcake Lyrica- oxycodone added HTN HLD Chest Pain CHF Cardiology consulted, appreciate recs troponin slightly elevated, managed by cardiology echo shows Ef of 35%- cannot be on JACKIE due to angioedema Amlodipine, metoprolol Substance Abuse Now admits to meth use due to pain UDS + for meth Critical illness myopathy PT/OT- advise to work with therapy DVT ppx: Lovenox Diagnosis/Problems Diagnosis/Problems (1) Septic shock (2) Insulin dependent diabetes mellitus Status: Chronic (3) Methamphetamine use Status: Acute (4) Pneumonia Status: Acute Qualifiers: Pneumonia type: due to unspecified organism Laterality: left Lung location: unspecified part of lung Qualified Codes: J18.9 - Pneumonia, unspecified organism (5) Uncontrolled diabetes mellitus Status: Acute Qualifiers: Diabetes mellitus type: type 2 Glycemic state: with hyperglycemia Qualified Codes: E11.65 - Type 2 diabetes mellitus with hyperglycemia (6) Uncontrolled hypertension Status: Acute (7) Non-compliance Status: Acute Clinical Quality Measures AMI/AHF: ASA po Prior to arrival: No DVT/VTE Risk/Contraindication: Risk Factor Score Per Nursin RFS Level Per Nursing on Admit: 4+=Very High CHET ZAVALETA MD Jul 02, 2019 12:34 pm POS
[2019-07-02] MEDS: cefTRIAXone 1,000 MG/SWFI 10 ML IV PUSH IV SCH ×2 (13:46)
[2019-07-02 16:00] VITALS: BP 186/91
--- NOTE | 2019-07-02 17:36 | Progress Note - Cardiology ---
Cardiology SOAP Progress Note Subjective: Shortness of breath improving. Now able to walk the leyva No cp or palp or syncope Gen malaise is improving Objective: I&O/Vital Signs 07/02/19 07/02/19 07/02/19 07/02/19 07:05 08:00 09:00 10:49 Temp 37.2 Pulse 67 Resp 20 B/P (MAP) 176/87 (116) Pulse Ox 90 95 95 O2 Delivery Room Air Nasal Cannula Room Air Room Air O2 Flow Rate 2.00 07/02/19 16:00 Temp 37.0 Pulse 63 Resp 16 B/P (MAP) 186/91 (122) Pulse Ox 94 O2 Delivery Nasal Cannula O2 Flow Rate 2.00 07/02/19 00:00 Intake Total 1940 ml Balance 1940 ml Weight (Pounds): 251 Weight (Ounces): 0 Weight (Calculated Kilograms): 113.988700 Constitutional: AAO x 3, well-developed, well-nourished Respiratory: chest expansion is symmetric, chest is bilaterally symmetric, other (fair air entry) Cardiovascular: regular rate-rhythm; No JVD; S1 and S2 Gastrointestional: round, audible bowel sounds Extremities: no lower extremity edema bilateral Neurologic/Psychiatric: grossly intact (moves all extremities) Skin: No rash on exposed areas, No ulcerations on exposed areas Results/Procedures: Labs Laboratory Tests 07/01/19 20:27: Glucometer 370H 07/02/19 05:25: Glucometer 435*H 07/02/19 05:55: White Blood Count 16.5H, Red Blood Count 4.17L, Hemoglobin 11.7L, Hematocrit 36L , Mean Corpuscular Volume 85, Mean Corpuscular Hemoglobin 28, Mean Corpuscular Hemoglobin Concent 33, Red Cell Distribution Width 14.9H, Platelet Count 463H, Mean Platelet Volume 9.9, Neutrophils (%) (Auto) 74, Lymphocytes (%) (Auto) 19, Monocytes (%) (Auto) 3, Eosinophils (%) (Auto) 3, Basophils (%) (Auto) 2, Neutrophils # (Auto) 12.2H, Lymphocytes # (Auto) 3.1, Monocytes # (Auto) 0.5, Eosinophils # (Auto) 0.4H, Basophils # (Auto) 0.3H, Neutrophils % (Manual) 62, Lymphocytes % (Manual) 20, Monocytes % (Manual) 3, Eosinophils % (Manual) 3, Me tamyelocytes % 3, Band Neutrophils 2, Atypical Lymphocytes 7, Sodium Level 134L, Potassium Level 4.3, Chloride Level 101, Carbon Dioxide Level 22, Anion Gap 11, Blood Urea Nitrogen 11, Creatinine 0.97, Estimat Glomerular Filtration Rate > 60, BUN/Creatinine Ratio 11, Glucose Level 445*H, Calcium Level 8.8 07/02/19 11:16: Glucometer 267H 07/02/19 16:03: Glucometer 301H Microbiology 06/26/19 Blood Culture - Final, Complete No growth 06/28/19 MRSA Screen - Final, Complete MRSA not isolated Laboratory Tests 07/01/19 06:15 07/02/19 05:55 A/P: Assessment: Chest discomfort of undetermined etiology - resolved Mildly elevated troponin likely Type 2 [place] r/t pneumonia, renal insufficiency and hypoxia Dilated cardiomyopathy. Echo of 06/27/19: LVEF 35-40%, mild enlargement of LA, grade 2 diastolic dysfunction, mild to mod MR & TR, RVSP 22 mmHg Pneumonia with sepsis - management per Medical/Pulmonary services Acute renal insufficiency - resolved Large area of dense consolidation of the left upper lobe, concerning for alveo lar pneumonia. Small left effusion. Mild cardiomegaly with mild scattered calcified aortic atherosclerosis. Multiple enlarged mediastinal lymph nodes, possibly reactive Per CTA of 06-26-19 (+) Methamphetamine use Hyponatremia - improving HTN HLD DM II, managed by the Primary Care Team Chronic abd pain - followed by his PCP COPD Quit smoking approx 20 yrs ago Plan: * Increase ARB because of hypertension and dilated cardiomyopathy * Monitor labs Clinical Quality Measures AMI/AHF: ASA po Prior to arrival: RYNE Gordon MD FACP FAC CCDS Jul 02, 2019 17:36 POS
[2019-07-02] MEDS ORDERED: NITROGLYCERIN 2% OINT 1 GM UNIT DOSE PACKET TOP PRN (17:45)
[2019-07-02] MEDS ORDERED: NITROGLYCERIN 2% OINT 1 GM UNIT DOSE PACKET ONE (17:53)
[2019-07-02] MEDS: MELATONIN 3 MG TABLET PO SCH (19:52)
[2019-07-03 00:35] VITALS: BP 134/78
[2019-07-03] MEDS: ACETAMINOPHEN 500 MG TAB (TYLENOL) PO SCH ×3 (00:54→11:16)
[2019-07-03] MEDS: RT-LEVALBUTEROL (XOPENEX) 1.25 MG/3 ML NEB NON-FORMULARY INH SCH ×3 (01:45→11:25)
[2019-07-03] MEDS: diphenhydrAMINE 25 MG TAB (BENADRYL) PO PRN (03:29)
[2019-07-03] MEDS: oxyCODONE/APAP 5/325MG (PERCOCET 5) TABLET PO PRN ×3 (03:29→13:04)
[2019-07-03] MEDS: inSUlin ASPART (NovoLOG) 1 UNIT/0.01 ML (CHARGE PER UNIT) SC SCH ×2 (05:33→11:16)
[2019-07-03 05:49] LABS: BASOPHILS # (AUTO) 0.1 10^3/uL (0.0-0.1); BASOPHILS % (AUTO) 1 % (0-10); EOSINOPHILS # (AUTO) 0.5 10^3/uL (0.0-0.3); EOSINOPHILS % (AUTO) 3 % (0-10); HEMATOCRIT 36 % (40-54); HEMOGLOBIN 11.6 G/DL (13.3-17.7); LYMPHOCYTES # (AUTO) 2.5 X 10^3 (1.0-4.0); LYMPHOCYTES % (AUTO) 16 % (12-44); MEAN CORPUSCULAR HEMOGLOBIN 27 PG (25-34); MEAN CORPUSCULAR HGB CONC 33 G/DL (32-36); MEAN CORPUSCULAR VOLUME 84 FL (80-99); MEAN PLATELET VOLUME 9.5 FL (7.4-10.4); MONOCYTES # (AUTO) 0.7 X 10^3 (0.0-1.0); MONOCYTES % (AUTO) 4 % (0-12); NEUTROPHILS # (AUTO) 11.9 X 10^3 (1.8-7.8); NEUTROPHILS % (AUTO) 76 % (42-75); PLATELET COUNT 548 10^3/uL (130-400); WHITE BLOOD COUNT 15.6 10^3/uL (4.3-11.0)
[2019-07-03 06:17] LABS: BUN/CREATININE RATIO 12; CALCIUM 8.5 MG/DL (8.5-10.1); CARBON DIOXIDE 22 MMOL/L (21-32); CHLORIDE 102 MMOL/L (98-107); CREATININE SERUM 0.93 MG/DL (0.60-1.30); GFR ESTIMATED > 60; GLUCOSE 328 MG/DL (70-105); POTASSIUM 4.4 MMOL/L (3.6-5.0); SODIUM 133 MMOL/L (135-145)
[2019-07-03 08:00] VITALS: BP 168/81
--- NOTE | 2019-07-03 08:12 | Diagnostic Imaging Report ---
Indication: Pneumonia Portable chest 4:51 AM There is infiltrate present in the left upper lobe. This is improved from the previous day. There is no appreciable effusion. Right lung is clear. IMPRESSION: Improving left upper lobe pneumonia. Dictated by: Dictated on workstation # [id number]
[2019-07-03] MEDS ORDERED: LOSARTAN 25 MG (COZAAR) TAB PO SCH (09:00)
[2019-07-03] MEDS: PREGABALIN 25 MG (LYRICA) CAPSULE PO SCH (09:08)
[2019-07-03] MEDS: amLODIPine 10 MG (NORVASC) TAB PO SCH (09:08)
[2019-07-03] MEDS: risperiDONE 1 MG (RisperDAL) TAB PO SCH (09:09)
[2019-07-03] MEDS: meTOprolol TARTRATE 50 MG (LOPRESSOR) TAB PO SCH (09:09)
[2019-07-03] MEDS: ENOXAPARIN 40 MG/0.4 ML (LOVENOX) SYR SC SCH ×2 (09:12→11:08)
--- NOTE | 2019-07-03 09:55 | Progress Note - Hospitalist ---
Subjective HPI/CC On Admission Date Seen by Provider: Jul 03, 2019 Time Seen by Provider: 09:30 Pt is a 59yoCM with a PMH of HTN, IDDMII, HLD who presented to the ER duet o 5 day history of chest pain and shortness of breath. He denies any precipitating factors when this started or any other symptoms associated with it. He has not history of chest pain or previous episodes. He was very vague in his history and stated "I'm not admitting to anything" when asked for more details regarding his history. He does state that he has had "stomach problems" for the past 9 months. Could not elaborate further. He is an insulin-dependent diabetic who reports he takes insulin 3 times a day but he is not sure what kind. He also states he's been off his medicines for a while but could not indicate why. He is laying quite flat in bed and when asked to sit up to help with breathing he refused. He stated he wanted me to give him a sleeping pill to just "knock him out. Subjective/Events-last exam Pt with a great deal of apathy Rocephin maintained, leukocytosis continuous He doesn't even know if PT has worked with him and I did review those orders in place No BM yet only once since his hospital stay for a week Very difficult to evaluate the patients needs considering the severe apathy I did confer with Dr. Parks who recommended continue IV Rocephin Review of Systems Pulmonary: Dyspnea Objective Exam Vital Signs Vital Signs Date Time Temp Pulse Resp B/P (MAP) Pulse Ox O2 Delivery O2 Flow Rate FiO2 07/03/19 09:00 Room Air 07/03/19 08:00 36.7 63 20 168/81 (110) 94 07/03/19 00:35 2.00 06/30/19 06:45 30 Capillary Refill : Less Than 3 Seconds General Appearance: No Apparent Distress, WD/WN, Chronically ill, Obese Respiratory: Lungs Clear, Normal Breath Sounds, Decreased Breath Sounds Cardiovascular: Regular Rate, Rhythm Neurologic/Psychiatric: Alert, Oriented x3, No Motor/Sensory Deficits, Depressed Affect Results/Procedures Lab Laboratory Tests 07/03/19 05:15 Patient resulted labs reviewed. Imaging: Reviewed Imaging Films, Reviewed Imaging Report Assessment/Plan Assessment and Plan Assess & Plan/Chief Complaint Assessment: Pneumonia Strep Hypoxia Obesity Plan: Left AMA Diagnosis/Problems Diagnosis/Problems (1) Septic shock (2) Streptococcal pneumonia (3) Insulin dependent diabetes mellitus Status: Chronic (4) Uncontrolled diabetes mellitus Status: Acute Qualifiers: Diabetes mellitus type: type 2 Glycemic state: with hyperglycemia Qualified Codes: E11.65 - Type 2 diabetes mellitus with hyperglycemia (5) Methamphetamine use Status: Acute (6) Non-compliance Status: Acute (7) Uncontrolled hypertension Status: Acute Clinical Quality Measures AMI/AHF: ASA po Prior to arrival: No DVT/VTE Risk/Contraindication: Risk Factor Score Per Nursin RFS Level Per Nursing on Admit: 4+=Very High ROS ZIMMER DO Jul 03, 2019 09:55 POS
--- NOTE | 2019-07-03 10:05 | Progress Note - Cardiology ---
Cardiology SOAP Progress Note Subjective: Lying in bed. Denies any new c/o. States he is going home today Objective: I&O/Vital Signs 07/03/19 07/03/19 07/03/19 00:35 07:58 08:00 Temp 36.8 36.7 Pulse 57 63 Resp 20 20 B/P (MAP) 134/78 (96) 168/81 (110) Pulse Ox 93 94 94 O2 Delivery Nasal Cannula Room Air Room Air O2 Flow Rate 2.00 07/03/19 00:00 Intake Total 1080 ml Balance 1080 ml Weight (Pounds): 251 Weight (Ounces): 0 Weight (Calculated Kilograms): 113.045456 Constitutional: AAO x 3, well-developed, well-nourished Respiratory: chest expansion is symmetric, chest is bilaterally symmetric, other (fair air entry) Cardiovascular: regular rate-rhythm; No JVD; S1 and S2 Gastrointestional: round, audible bowel sounds Extremities: no lower extremity edema bilateral Neurologic/Psychiatric: grossly intact (moves all extremities) Skin: No rash on exposed areas, No ulcerations on exposed areas Results/Procedures: Labs Laboratory Tests 07/02/19 11:16: Glucometer 267H 07/02/19 16:03: Glucometer 301H 07/02/19 20:20: Glucometer 264H 07/03/19 05:15: White Blood Count 15.6H, Red Blood Count 4.23L, Hemoglobin 11.6L, Hematocrit 36L , Mean Corpuscular Volume 84, Mean Corpuscular Hemoglobin 27, Mean Corpuscular Hemoglobin Concent 33, Red Cell Distribution Width 15.0H, Platelet Count 548H, Mean Platelet Volume 9.5, Neutrophils (%) (Auto) 76H, Lymphocytes (%) (Auto) 16, Monocytes (%) (Auto) 4, Eosinophils (%) (Auto) 3, Basophils (%) (Auto) 1, Neutrophils # (Auto) 11.9H, Lymphocytes # (Auto) 2.5, Monocytes # (Auto) 0.7, Eosinophils # (Auto) 0.5H, Basophils # (Auto) 0.1, Sodium Level 133L, Potassium Level 4.4, Chloride Level 102, Carbon Dioxide Level 22, Anion Gap 9, Blood Urea Nitrogen 11, Creatinine 0.93, Estimat Glomerular Filtration Rate > 60, BUN/Creatinine Ratio 12, Glucose Level 328H, Calcium Level 8.5 07/03/19 05:30: Glucometer 278H Microbiology 06/26/19 Blood Culture - Final, Complete No growth 06/28/19 MRSA Screen - Final, Complete MRSA not isolated Laboratory Tests 07/02/19 05:55 07/03/19 05:15 Procedures NAME: GWENDOLYN [facility] REC#: [id number] PT STATUS: ADM IN : 1960 PHYSICIAN: AMINAH VÁSQUEZ DO ADMIT DATE: 06/26/19 Signed Date of Exam: 07/03/19 CHEST 1 VIEW, AP/PA ONLY Indication: Pneumonia Portable chest 4:51 AM There is infiltrate present in the left upper lobe. This is improved from the previous day. There is no appreciable effusion. Right lung is clear. IMPRESSION: Improving left upper lobe pneumonia. Dictated by: Dictated on workstation # [id number] Dict: 07/03/19809 Trans: 07/03/19809 Interpreted by: DARON MATAMOROS MD Electronically signed by: DARON MATAMOROS MD 07/03/19809 A/P: Assessment: Chest discomfort of undetermined etiology - resolved Mildly elevated troponin likely Type 2 [place] r/t pneumonia, renal insufficiency and hypoxia Dilated cardiomyopathy. Echo of 06/27/19: LVEF 35-40%, mild enlargement of LA, grade 2 diastolic dysfunction, mild to mod MR & TR, RVSP 22 mmHg Pneumonia with sepsis - management per Medical/Pulmonary services Acute renal insufficiency - resolved Large area of dense consolidation of the left upper lobe, concerning for alveolar pneumonia. Small left effusion. Mild cardiomegaly with mild scattered calcified aortic atherosclerosis. Multiple enlarged mediastinal lymph nodes, possibly reactive Per CTA of 06-26-19 (+) Methamphetamine use Hyponatremia - improving HTN HLD DM II, managed by the Primary Care Team Chronic abd pain - followed by his PCP COPD Quit smoking approx 20 yrs ago Plan: * Adjust antihypertensives as indicated - increase Losartan * Monitor labs Clinical Quality Measures AMI/AHF: ASA po Prior to arrival: [place] Phillips Jul 03, 2019 10:05 POS
[2019-07-03] MEDS ORDERED: LOSARTAN 50 MG (COZAAR) TAB PO NR (10:15)
--- NOTE | 2019-07-03 13:43 | NUR ---
RT SHOWED UP TO WALK PT. PT NOT IN ROOM. INFORMED THAT PT ALREADY LEFT.
--- NOTE | 2019-07-03 13:45 | NUR ---
PT. STATED " I'M GETTING OUT OF HERE. I ALREADY SIGNED A PAPER TO RELEASE ME." ATTEMPTED TO EDUCATE PT. ABOUT POSSIBLE NEED FOR OXYGEN AND OTHER MEDS. DR. ZIMMER NOTIFIED. NO NEW ORDER'S. STATED TO HAVE PT. SIGN AMA PAPER PRIOR TO LEAVING. AMA PAPER SIGNED. PT. LEFT FLOOR.
--- NOTE | 2019-07-03 14:36 | NUR ---
RD ASSESSMENT PMHx: HTN; HLD; T2DM; polysubstance use (methamphetamine) PT INTERACTION: Pt was very asleep during nutrition assessment for length of stay. RN states pt has been eating very well and has had no issues with n/v at this time. Note pt avg PO intake of >75% x7d, per chart review. RN states pt may have some issues with constipation as last BM was 06/30. Note pt currently on bowel regimen of colace, miralax, per chart review. ABNORMAL NUTRITION-RELATED LAB VALUES: Na 133 (L); glu 328 (H) Est. kcal needs: 8691-6514 kcal (15-18 kcal/kg) Est. Pro needs: 86-107 g Pro (0.8-1.0 g Pro/kg) PES STATEMENT: Given pt's PO intake, no nutrition diagnosis at this time (NO-1.1) INTERVENTION: Continue with current diet order of CHO 60g/m 1snack diet. MONITOR/EVALUATE: PO Intake; Plan of Care; Hydration Status; Weight Status; Lab Values Zeke Mcclendon, MS, RD, LD
--- NOTE | 2019-07-03 14:57 | Pulmonary Progress Note ---
Subjective Time Seen by a Provider: 07:00 Subjective/Events-last exam Requiring less oxygen and SOB is improved. CXR shows improvement. Sepsis Event Evaluation Height, Weight, BMI Height: 5'9.00" Weight: 251lbs. 0oz. 113.263136bn; 35.95 BMI Method:Actual Exam Exam Vital Signs Date Time Temp Pulse Resp B/P (MAP) Pulse Ox O2 Delivery O2 Flow Rate FiO2 07/03/19 09:00 Room Air 07/03/19 08:00 36.7 63 20 168/81 (110) 94 Room Air 07/03/19 07:58 94 Room Air 07/03/19 00:35 36.8 57 20 134/78 (96) 93 Nasal Cannula 2.00 07/02/19 20:00 Room Air 07/02/19 19:07 93 Room Air 07/02/19 16:00 37.0 63 16 186/91 (122) 94 Nasal Cannula 2.00 I & O 07/03/19 07:00 Intake Total 1380 ml Balance 1380 ml Height & Weight Height: 5'9.00" Weight: 251lbs. 0oz. 113.345221pd; 35.95 BMI Method:Actual General Appearance: No Apparent Distress, Chronically ill, Obese HEENT: PERRL/EOMI, Moist Mucous Membranes Neck: Normal Inspection Respiratory: Lungs Clear, No Accessory Muscle Use, No Respiratory Distress, Decreased Breath Sounds Cardiovascular: Regular Rate, Rhythm, No Murmur Capillary Refill: Less Than 3 Seconds Peripheral Pulses: 2+ Dorsalis Pedis (R), 2+ Left Dors-Pedis (L), 2+ Radial Pulses (R), 2+ Radial Pulses (L) Gastrointestinal: normal bowel sounds Extremity: Pedal Edema Neurologic/Psychiatric: Alert, Oriented x3 Skin: Normal Color, Warm/Dry Results Lab Laboratory Tests 07/02/19 05:55 07/03/19 05:15 Assessment/Plan Assessment/Plan Severe Sepsis with BANDAR pneumonia -Ceftriaxone -Urine Strep is positive -Urine legionella negative -Now on 2 liter NC CHF systolic and diastolic EF 35-40% Metabolic encephalopathy/ agitation -haldol PRN -1 mg BID Risperdal NSTEMI type II LAINEY -Monitor -IVF Methamphetamine use -Education Tobacco use -Education COPD hx -Duoneb Q4hr -Duoneb Q2hr PRN AMINAH VÁSQUEZ 11, 2019 14:57 POS
--- NOTE | 2019-07-03 21:00 | Discharge Summary ---
Discharge Summary Hospital Course Was the Problem List Reviewed?: Yes Problems/Dx: (1) Septic shock (2) Streptococcal pneumonia (3) Insulin dependent diabetes mellitus Status: Chronic (4) Uncontrolled diabetes mellitus Status: Acute Qualifiers: Qualified Codes: E11.65 - Type 2 diabetes mellitus with hyperglycemia (5) Methamphetamine use Status: Acute (6) Non-compliance Status: Acute (7) Uncontrolled hypertension Status: Acute Hospital Course Date of Admission: Jun 26, 2019 at 12:46 Admission Diagnosis : Family Physician/Provider: Yaw Womack MD Date of Discharge: 07/03/19 Discharge Diagnosis: septic shock, strep pneumonia, meth use, verbally abusive to nursing staff Hospital Course: Had a 7 days hospital course after ICU stay after septic shock and was empirically placed on abx for pneumonia and Vapotherm then NC. Patient became stable and was able to leave AMA prior to abx completing. Labs and Pending Lab Test: Laboratory Tests 07/03/19 05:15: White Blood Count 15.6H, Red Blood Count 4.23L, Hemoglobin 11.6L, Hematocrit 36L , Mean Corpuscular Volume 84, Mean Corpuscular Hemoglobin 27, Mean Corpuscular Hemoglobin Concent 33, Red Cell Distribution Width 15.0H, Platelet Count 548H, Mean Platelet Volume 9.5, Neutrophils (%) (Auto) 76H, Lymphocytes (%) (Auto) 16, Monocytes (%) (Auto) 4, Eosinophils (%) (Auto) 3, Basophils (%) (Auto) 1, Neutrophils # (Auto) 11.9H, Lymphocytes # (Auto) 2.5, Monocytes # (Auto) 0.7, Eosinophils # (Auto) 0.5H, Basophils # (Auto) 0.1, Sodium Level 133L, Potassium Level 4.4, Chloride Level 102, Carbon Dioxide Level 22, Anion Gap 9, Blood Urea Nitrogen 11, Creatinine 0.93, Estimat Glomerular Filtration Rate > 60, BUN/Creatinine Ratio 12, Glucose Level 328H, Calcium Level 8.5 07/03/19 05:30: Glucometer 278H 07/03/19 11:07: Glucometer 283H Microbiology 06/26/19 Blood Culture - Final, Complete No growth 06/28/19 MRSA Screen - Final, Complete MRSA not isolated Home Meds Active Reported Omeprazole 40 Mg Capsule.dr 40 Mg PO DAILY LAST FILLED 04-06-2019 #30/30DAY SUPPLY Metformin HCl 1,000 Mg Tablet 1,000 Mg PO BID LAST FILLED 03-30-2019 #60/ DAY SUPPLY Humalog Kwikpen (Insulin Lispro) 100 Unit/1 Ml Insuln.pen 15 Units SC TIDWM Assessment/Pt Instructions PCP 1 week Discharge Planning: <30 minutes discharge planning Discharge Instructions Discharge Diet: ADA Diet Activity as Tolerated: Yes Pneumonia Vaccine Order Indica: Yes Discharge Physical Examination Vital Signs Vital Signs Date Time Temp Pulse Resp B/P (MAP) Pulse Ox O2 Delivery O2 Flow Rate FiO2 07/03/19 09:00 Room Air 07/03/19 08:00 36.7 63 20 168/81 (110) 94 07/03/19 00:35 2.00 06/30/19 06:45 30 General Appearance: No Apparent Distress, WD/WN Respiratory: Lungs Clear Neurologic/Psychiatric: Alert, Oriented x3, No Motor/Sensory Deficits, Normal Mood/Affect Allergies: Coded Allergies: hydrocodone (Unverified Allergy, Unknown, hives, 02/08/19) aspirin (Unverified Adverse Reaction, Unknown, angioedema, 02/08/19) lisinopril (Unverified Adverse Reaction, Unknown, angioedema, 02/08/19) Discharge Summary Date of Admission Jun 26, 2019 at 12:46 Date of Discharge Jul 03, 2019 at 13:45 Discharge Date: Jun 30, 2019 Admission Diagnosis Septic Shock Discharge Diagnosis Assessment: Pneumonia Strep Hypoxia Obesity Plan: Left AMA (1) Septic shock (2) Streptococcal pneumonia (3) Insulin dependent diabetes mellitus Status: Chronic (4) Uncontrolled diabetes mellitus Status: Acute Qualifiers: Qualified Codes: E11.65 - Type 2 diabetes mellitus with hyperglycemia (5) Methamphetamine use Status: Acute (6) Non-compliance Status: Acute (7) Uncontrolled hypertension Status: Acute Clinical Quality Measures AMI/AHF: ASA po Prior to arrival: No DVT/VTE Risk/Contraindication: Risk Factor Score Per Nursin RFS Level Per Nursing on Admit: 4+=Very High ROS ZIMMER DO Jul 03, 2019 21:00 POS
[2019-07-04] MEDS ORDERED: LOSARTAN 100 MG (COZAAR) TABLET PO SCH (09:00)
== END 2019-07-03 13:45 | disposition left against medical advice (07) | DRG 871 ==
LOC: EDUNIT# 09:34 → ER 09:34 → ICU 12:46 → 4TH 06-29 11:00
PROVIDERS: ADMIT Family Medicine; ATTEND Family Medicine
DX: A41.9 Sepsis, unspecified organism (principal); R65.21 Severe sepsis with septic shock; I21.A1 Myocardial infarction type 2; G93.41 Metabolic encephalopathy; J15.4 Pneumonia due to other streptococci; J44.0 Chronic obstructive pulmonary disease with (acute) lower respiratory infection; E87.1 Hypo-osmolality and hyponatremia; I42.0 Dilated cardiomyopathy; I50.30 Unspecified diastolic (congestive) heart failure; G72.81 Critical illness myopathy; I11.0 Hypertensive heart disease with heart failure; E11.40 Type 2 diabetes mellitus with diabetic neuropathy, unspecified; E66.9 Obesity, unspecified; E78.5 Hyperlipidemia, unspecified; E78.00 Pure hypercholesterolemia, unspecified; F15.90 Other stimulant use, unspecified, uncomplicated; E11.65 Type 2 diabetes mellitus with hyperglycemia; N28.9 Disorder of kidney and ureter, unspecified; Z53.29 Procedure and treatment not carried out because of patient's decision for other reasons; Z87.891 Personal history of nicotine dependence; Z79.4 Long term (current) use of insulin; Z68.38 Body mass index [BMI] 38.0-38.9, adult; Z91.19 Patient's noncompliance with other medical treatment and regimen
CPT/HCPCS: 36415; 36600; 71045; 71275; 80048; 80053; 80061; 80202; 80306; 80320; 81000; 82805; 82962; 83036; 83605; 83735; 83874; 83880; 84100; 84484; 85007; 85025; 85027; 85379; 85610; 85730; 87040; 87081; 87449; 87804; 87899; 93005; 93041; 93306; 94640; 94660; 94664; 94760; 94761

== ENCOUNTER 2019-07-06 02:08 | Emergency (ER) | payer MEDICAID ==
[~2019-07-06] VITALS: Ht 175 cm; Wt 118.1 kg
[~2019-07-06 02:08] MED LIST changes: +INSU100I23 SC; +METF-399 PO
[2019-07-06] MEDS ORDERED: TRAM50TA2 PO (02:35)
--- NOTE | 2019-07-06 02:36 | NUR ---
Blood drawn by lab.
[2019-07-06 02:43] LABS: BASOPHILS # (AUTO) 0.1 10^3/uL (0.0-0.1); BASOPHILS % (AUTO) 0 % (0-10); EOSINOPHILS # (AUTO) 0.3 10^3/uL (0.0-0.3); EOSINOPHILS % (AUTO) 2 % (0-10); HEMATOCRIT 38 % (40-54); HEMOGLOBIN 12.9 G/DL (13.3-17.7); LYMPHOCYTES % (AUTO) 14 % (12-44); MEAN CORPUSCULAR HEMOGLOBIN 28 PG (25-34); MEAN CORPUSCULAR HGB CONC 34 G/DL (32-36); MEAN CORPUSCULAR VOLUME 83 FL (80-99); MEAN PLATELET VOLUME 8.9 FL (7.4-10.4); MONOCYTES # (AUTO) 0.7 X 10^3 (0.0-1.0); MONOCYTES % (AUTO) 5 % (0-12); NEUTROPHILS # (AUTO) 11.2 X 10^3 (1.8-7.8); NEUTROPHILS % (AUTO) 79 % (42-75); PLATELET COUNT 522 10^3/uL (130-400); RED CELL DISTRIBUTION WIDTH 14.7 % (10.0-14.5); WHITE BLOOD COUNT 14.2 10^3/uL (4.3-11.0)
[2019-07-06 03:01] LABS: ANISOCYTOSIS SLIGHT; BAND NEUTROPHILS 0 %; BASOPHILS % (MANUAL) 0 %; EOSINOPHILS % (MANUAL) 4 %; LYMPHOCYTES % (MANUAL) 16 %; MONOCYTES % (MANUAL) 4 %; NEUTROPHILS % (MANUAL) 72 %; REACTIVE LYMPHOCYTES 4 %; TOXIC GRANULATION/VACUOLAZATIO 1+
[2019-07-06 03:05] LABS: ALANINE AMINOTRANSFERASE 19 U/L (0-55); ALBUMIN 3.2 GM/DL (3.2-4.5); ALKALINE PHOSPHATASE 117 U/L (40-136); AMYLASE 94 U/L (25-125); BILIRUBIN,TOTAL 0.3 MG/DL (0.1-1.0); BUN/CREATININE RATIO 19; CALCIUM 9.2 MG/DL (8.5-10.1); CARBON DIOXIDE 23 MMOL/L (21-32); CHLORIDE 98 MMOL/L (98-107); CREATININE SERUM 1.03 MG/DL (0.60-1.30); GFR ESTIMATED > 60; GLUCOSE 269 MG/DL (70-105); LIPASE 19 U/L (8-78); POTASSIUM 4.8 MMOL/L (3.6-5.0); SODIUM 133 MMOL/L (135-145); TOTAL PROTEIN 7.3 GM/DL (6.4-8.2)
--- NOTE | 2019-07-06 03:06 | NUR ---
Patient taken to radiology and CT.
[2019-07-06 03:07] LABS: ACETAMINOPHEN < 10 UG/ML (10-30)
[2019-07-06 03:11] LABS: BILIRUBIN,URINE NEGATIVE (NEGATIVE); CLARITY,URINE CLEAR; COLOR,URINE YELLOW; GLUCOSE, URINE (UA) 3+ (NEGATIVE); KETONES,URINE NEGATIVE (NEGATIVE); LEUKOCYTE ESTERASE ,URINE NEGATIVE (NEGATIVE); NITRITE,URINE NEGATIVE (NEGATIVE); PROTEIN,URINE 1+ (NEGATIVE)
[2019-07-06 03:18] LABS: BACTERIA,URINE NEGATIVE /HPF; SQUAMOUS EPITHELIAL CELL,UR RARE /HPF
[2019-07-06 03:23] LABS: AMPHETAMINE SCREEN, URINE NEGATIVE (NEGATIVE); BARBITURATE SCREEN URINE NEGATIVE (NEGATIVE); BENZODIAZEPINES SCREEN URINE NEGATIVE (NEGATIVE); CANNABINOID SCREEN, URINE NEGATIVE (NEGATIVE); COCAINE SCREEN URINE NEGATIVE (NEGATIVE); METHADONE STAT NEGATIVE (NEGATIVE); METHAMPHETAMINE SCREEN URINE S NEGATIVE (NEGATIVE); OPIATE SCREEN URINE NEGATIVE (NEGATIVE); OXYCODONE STAT NEGATIVE (NEGATIVE); PROPOXYPHENE STAT NEGATIVE (NEGATIVE); TRICYCLIC ANTIDEPRESSANTS SCRE NEGATIVE (NEGATIVE)
[2019-07-06] MEDS ORDERED: DICY20TA10 PO (04:16)
[2019-07-06] MEDS ORDERED: HYOS0.1283 SL (04:16)
[2019-07-06] MEDS ORDERED: CEFD300C3 PO (04:16)
[2019-07-06] MEDS ORDERED: AZIT500T PO (04:16)
--- NOTE | 2019-07-06 04:18 | ED Abdominal Pain ---
General Chief Complaint: Abdominal/GI Problems Stated Complaint: PAIN ALL OVER Nursing Triage Note: Patient ambulatory to ER room 5 with complaint of mid abdominal pain. Patient states the pain has been present x 12 months but has gotten worse tonight. Patient also complaining of back pain and nausea. Patient states he was recently released from [facility] for pneumonia. Patient has been taking tramadol at home with no relief. Sepsis Screen: No Definite Risk Allergies and Home Medications Allergies Coded Allergies: hydrocodone (Unverified Allergy, Unknown, hives, 02/08/19) aspirin (Unverified Adverse Reaction, Unknown, angioedema, 02/08/19) lisinopril (Unverified Adverse Reaction, Unknown, angioedema, 02/08/19) Home Medications Insulin Lispro 100 Unit/1 Ml Insuln.pen, 15 UNITS SC TIDWM, (Reported) Metformin HCl 1,000 Mg Tablet, 1,000 MG PO BID, (Reported) LAST FILLED 03-30-2019 #60/30 DAY SUPPLY Omeprazole 40 Mg Capsule.dr, 40 MG PO DAILY, (Reported) LAST FILLED 04-06-2019 #30/30DAY SUPPLY Tramadol HCl 50 Mg Tablet, 50 MG PO PRN, (Reported) Past Crrdwcc-Scubtb-Hskpyv Hx Patient Social History Alcohol Use: Past History Recreational Drug Use: Yes (several weeks ago ) Drug of Choice: METH Smoking Status: Former Smoker Type Used: Cigarettes Former Smoker, Quit: Feb 21, 2004 2nd Hand Smoke Exposure: No Recent Foreign Travel: No Contact w/Someone Who Travel: No Recent Infectious Disease Expo: No Recent Hopitalizations: No Past Medical History Surgeries: Yes (BONE GRAFT TO RT WRIST FROM HIP) Orthopedic Respiratory: Yes COPD Cardiac: Yes High Cholesterol, Hypertension Neurological: Yes (SUSPECTED PERIPHERAL NEUROPATHY) Reproductive Disorders: No Genitourinary: No Gastrointestinal: Yes (CHRONIC GI COMPLAINTS) Musculoskeletal: Yes (CHRONIC GENERALIZED PAIN COMPLAINTS, ESPECIALLY TO LEGS AND FEET) Endocrine: Yes (OBESE; EXTERME NON-COMPLIANCE IN ALL ASPECTS OF CARE) Diabetes, Insulin dep HEENT: No Cancer: No Psychosocial: No Integumentary: No Blood Disorders: No Family Medical History No Pertinent Family Hx Physical Exam Vital Signs Vital Signs - First Documented 07/06/19 02:13 Temp 36.1 Pulse 76 Resp 16 B/P (MAP) 173/92 (119) Pulse Ox 97 O2 Delivery Room Air Capillary Refill : Less Than 3 Seconds Height/Weight/BMI Height: 5'9.00" Weight: 251lbs. 0oz. 113.079307gl; 38.00 BMI Method:Actual Progress/Results/Core Measures Results/Orders Lab Results Laboratory Tests Test 07/06/19 02:35 07/06/19 03:04 Range/Units White Blood Count 14.2 H 4.3-11.0 10^3/uL Red Blood Count 4.58 4.35-5.85 10^6/uL Hemoglobin 12.9 L 13.3-17.7 G/DL Hematocrit 38 L 40-54 % Mean Corpuscular Volume 83 80-99 FL Mean Corpuscular Hemoglobin 28 25-34 PG Mean Corpuscular Hemoglobin Concent 34 32-36 G/DL Red Cell Distribution Width 14.7 H 10.0-14.5 % Platelet Count 522 H 130-400 10^3/uL Mean Platelet Volume 8.9 7.4-10.4 FL Neutrophils (%) (Auto) 79 H 42-75 % Lymphocytes (%) (Auto) 14 12-44 % Monocytes (%) (Auto) 5 0-12 % Eosinophils (%) (Auto) 2 0-10 % Basophils (%) (Auto) 0 0-10 % Neutrophils # (Auto) 11.2 H 1.8-7.8 X 10^3 Lymphocytes # (Auto) 2.0 1.0-4.0 X 10^3 Monocytes # (Auto) 0.7 0.0-1.0 X 10^3 Eosinophils # (Auto) 0.3 0.0-0.3 10^3/uL Basophils # (Auto) 0.1 0.0-0.1 10^3/uL Neutrophils % (Manual) 72 % Lymphocytes % (Manual) 16 % Monocytes % (Manual) 4 % Eosinophils % (Manual) 4 % Basophils % (Manual) 0 % Band Neutrophils 0 % Reactive Lymphocytes 4 % Toxic Granulation 1+ Anisocytosis SLIGHT Sodium Level 133 L 135-145 MMOL/L Potassium Level 4.8 3.6-5.0 MMOL/L Chloride Level 98 98-107 MMOL/L Carbon Dioxide Level 23 21-32 MMOL/L Anion Gap 12 5-14 MMOL/L Blood Urea Nitrogen 20 H 7-18 MG/DL Creatinine 1.03 0.60-1.30 MG/DL Estimat Glomerular Filtration Rate > 60 BUN/Creatinine Ratio 19 Glucose Level 269 H 70-105 MG/DL Calcium Level 9.2 8.5-10.1 MG/DL Corrected Calcium 9.8 8.5-10.1 MG/DL Total Bilirubin 0.3 0.1-1.0 MG/DL Aspartate Amino Transf (AST/SGOT) 28 5-34 U/L Alanine Aminotransferase (ALT/SGPT) 19 0-55 U/L Alkaline Phosphatase 117 40-136 U/L Total Protein 7.3 6.4-8.2 GM/DL Albumin 3.2 3.2-4.5 GM/DL Amylase Level 94 25-125 U/L Lipase 19 8-78 U/L Acetaminophen Level < 10 L 10-30 UG/ML Serum Alcohol < 10 <10 MG/DL Urine Color YELLOW Urine Clarity CLEAR Urine pH 6.0 5-9 Urine Specific [place] 1.020 1.016-1.022 Urine Protein 1+ H NEGATIVE Urine Glucose (UA) 3+ H NEGATIVE Urine Ketones NEGATIVE NEGATIVE Urine Nitrite NEGATIVE NEGATIVE Urine Bilirubin NEGATIVE NEGATIVE Urine Urobilinogen 0.2 < = 1.0 MG/DL Urine Leukocyte Esterase NEGATIVE NEGATIVE Urine RBC (Auto) NEGATIVE NEGATIVE Urine RBC NONE /HPF Urine WBC NONE /HPF Urine Squamous Epithelial Cells RARE /HPF Urine Crystals NONE /LPF Urine Bacteria NEGATIVE /HPF Urine Casts NONE /LPF Urine Mucus SMALL H /LPF Urine Culture Indicated NO Urine Opiates Screen NEGATIVE NEGATIVE Urine Oxycodone Screen NEGATIVE NEGATIVE Urine Methadone Screen NEGATIVE NEGATIVE Urine Propoxyphene Screen NEGATIVE NEGATIVE Urine Barbiturates Screen NEGATIVE NEGATIVE Ur Tricyclic Antidepressants Screen NEGATIVE NEGATIVE Urine Phencyclidine Screen NEGATIVE NEGATIVE Urine Amphetamines Screen NEGATIVE NEGATIVE Urine Methamphetamines Screen NEGATIVE NEGATIVE Urine Benzodiazepines Screen NEGATIVE NEGATIVE Urine Cocaine Screen NEGATIVE NEGATIVE Urine Cannabinoids Screen NEGATIVE NEGATIVE My Orders Orders - LIANETLANCE K DO Acetaminophen (07/06/19 02:24) Alcohol (07/06/19 02:24) Amylase (07/06/19 02:24) Cbc With Automated Diff (07/06/19 02:24) Comprehensive Metabolic Panel (07/06/19 02:24) Drug Screen Stat (Urine) (07/06/19 02:24) Lipase (07/06/19 02:24) Ua Culture If Indicated (07/06/19 02:24) Manual Differential (07/06/19 02:35) Chest Pa/Lat (2 View) (07/06/19 02:59) Abdomen, Flat & Upright/Decub (07/06/19 02:59) Ct Chest/Abdomen/Pelvis Wo (07/06/19 03:00) Vital Signs/I&O 07/06/19 02:13 Temp 36.1 Pulse 76 Resp 16 B/P (MAP) 173/92 (119) Pulse Ox 97 O2 Delivery Room Air Blood Pressure Mean: 119 POS Departure Impression Primary Impression: Chronic abdominal pain Additional Impressions: Chronic back pain Uncontrolled diabetes mellitus Left upper lobe pneumonia Non-compliance Constipation ILLICIT DRUG USE, INCLUDING METHAMPHETAMINES Disposition: HOME, SELF-CARE Condition: Stable Departure-Patient Inst. Referrals: BRADLEY TOBAR MD (PCP/Family) Primary Care Physician Patient Instructions: Acute Abdomen (Belly Pain), Adult (DC), Blood Glucose Monitoring, CHRONIC PAIN, Community-Acquired Pneumonia, Adult (DC), Constipation, Adult (DC), Diabetes Type 2 (DC), Drug Abuse and Drug Addiction (DC), Methamphetamine Add. Discharge Instructions: CHECK YOUR BLOOD SUGAR AT LEAST 3 TIMES A DAY AND TAKE YOUR DIABETIC MEDICATION EXACTLY PRESCRIBED TAKE YOUR TRAMADOL PRESCRIBED FOR YOUR CHRONIC PAIN USE MIRALAX 1 CAPFUL IN 8 OZ OF WATER--TAKE EVERY 2 HOURS UNTIL YOUR STOOLS HAVE CLEARED, THEN USE ONE TIME A DAY FOLLOW UP WITH DR. TOBAR THIS WEEK FOR FURTHER CARE--CALL IN AM FOR APPOINTMENT All discharge instructions reviewed with patient and/or family. Voiced understanding. Scripts Azithromycin (Zithromax) 500 Mg Tablet 500 MG PO DAILY, #5 TAB FOR INFECTION Prov: LANCE MARTINI DO 07/06/19 Cefdinir (Cefdinir) 300 Mg Capsule 300 MG PO BID for FOR INFECTION, #20 CAP Prov: LANCE MARTINI DO 07/06/19 Dicyclomine HCl (Dicyclomine HCl) 20 Mg Tablet 20 MG PO Q6H for Abdominal Pain, #12 TAB Prov: LANCE MARTINI DO 07/06/19 Hyoscyamine Sulfate (Levsin-Sl) 0.125 Mg Tab.subl 1-2 TAB SL Q4H for Abdominal Pain, #10 TAB Prov: LANCE MARTINI DO 07/06/19 LANCE MARTINI DO Jul 06, 2019 04:18 POS
[2019-07-06 04:45] VITALS: BP 181/101
--- NOTE | 2019-07-06 07:51 | Diagnostic Imaging Report ---
INDICATION: Abdominal pain. EXAMINATION: 2 view chest 07/06/2019 FINDINGS: 2 views of the chest. Heart is unremarkable. Pulmonary vasculature is normal in appearance. Diffuse infiltrate, however is seen throughout the left suprahilar and perihilar region. No significant effusions are seen. Follow-up recommended to assure resolution. The right lung is unremarkable. No significant effusions or pneumothorax. IMPRESSION: 1. Diffuse infiltrates throughout the left mid and upper lobe with a questionable nodule at the left lung base. Follow-up recommended to assure complete resolution of findings. Dictated by: Dictated on workstation # [id number]
--- NOTE | 2019-07-06 07:53 | Diagnostic Imaging Report ---
INDICATION: Abdominal pain and constipation. EXAMINATION: Abdomen 07/06/2019 FINDINGS: 2 views of the abdomen demonstrate scattered air and stool throughout the colon to the rectosigmoid with findings of constipation. Nonspecific air-fluid level seen in the mid abdomen. However, an obstructive process is not seen at this time. There is no free air. IMPRESSION: 1. Constipation. 2. Nonobstructive bowel gas pattern at this time. Continued follow-up recommended if concern for early partial small bowel obstruction. Dictated by: Dictated on workstation # [id number]
--- NOTE | 2019-07-06 09:21 | Diagnostic Imaging Report ---
PROCEDURE: CT chest, abdomen, and pelvis without contrast. TECHNIQUE: Multiple contiguous axial images were obtained through the chest, abdomen, and pelvis without the use of intravenous contrast. Auto Exposure Controls were utilized during the CT exam to meet ALARA standards for radiation dose reduction. INDICATION: Midabdominal pain, symptoms for approximately 12 months. Getting worse tonight. Back pain and nausea. EXAMINATION: CT chest, abdomen, and pelvis without contrast from 07/06/2019. COMPARISONS: Angio of the chest dated 06/26/2019 and CTA abdomen and pelvis from 01/19/2019. FINDINGS: Chest: The lungs demonstrate scattered airspace opacities, especially in the left upper lobe and extending towards the apex. This is most likely diffuse infiltrate. Areas of atelectasis or scarring in the region also noted. These findings extend to involve the lingula as well. The right lung appears clear. No significant pleural effusions are seen. Minimal pleural fluid seen at the left lung base posteriorly. There is a small hiatal hernia. There is prominent fatty tissue surrounding the distal esophagus which could be herniated fat. No adenopathy is seen in the mediastinum or in either hilum. No axillary adenopathy. The osseous structures appear intact within the chest. IMPRESSION: 1. Diffuse infiltrate in the left upper lobe and lingula. Follow-up is recommended to assure complete resolution of these findings given some areas are vaguely nodular. 2. Hiatal hernia with a fair amount of fat surrounding the distal esophagus, possibly herniated as well. 3. Small left effusion. CT abdomen and pelvis: The nonopacified abdominal viscera is limited due to the lack of contrast. Left lobe of the liver is somewhat prominent. The spleen is unremarkable. Pancreas is slightly atrophied but otherwise normal. Gallbladder and adrenal glands are unremarkable. The kidneys demonstrate no acute abnormality. No hydronephrosis. There is no ascites or free air. There are findings of constipation throughout the colon. Diverticular disease is seen without evidence for diverticulitis. There is no free air or fluid in the abdomen nor the pelvis. Urinary bladder wall appears somewhat thickened, possibly due to underdistention. Cystitis however could cause a similar appearance. There is no acute osseous abnormality. Diffuse chronic changes are noted. IMPRESSION: 1. No acute process in the abdomen nor the pelvis with multiple incidental findings, as discussed above. 2. Wall thickening and abnormal appearance of the distal esophagus is questioned with EGD recommended, as clinically indicated. Dictated by: Dictated on workstation # [id number]
== END 2019-07-06 04:45 | disposition home or self-care (01) ==
LOC: EDUNIT# 02:08 → ER 02:09
DX: K59.00 Constipation, unspecified (principal); G89.29 Other chronic pain; R10.9 Unspecified abdominal pain; M54.9 Dorsalgia, unspecified; E11.9 Type 2 diabetes mellitus without complications; J18.1 Lobar pneumonia, unspecified organism; F15.90 Other stimulant use, unspecified, uncomplicated; I10 Essential (primary) hypertension; E78.00 Pure hypercholesterolemia, unspecified; J44.9 Chronic obstructive pulmonary disease, unspecified; Z91.19 Patient's noncompliance with other medical treatment and regimen; Z88.5 Allergy status to narcotic agent; Z88.6 Allergy status to analgesic agent; Z88.8 Allergy status to other drugs, medicaments and biological substances; Z79.4 Long term (current) use of insulin; Z87.891 Personal history of nicotine dependence
CPT/HCPCS: 36415; 71046; 71250; 74019; 74176; 80053; 80306; 80320; 80329; 81000; 82150; 83690; 85007; 85027

== ENCOUNTER → 2019-10-05 | Outpatient (CLI) | payer MEDICAID ==
[~2019-10-05] MED LIST changes: +AZIT500T PO; +CEFD300C3 PO; +DICY20TA10 PO; +HYOS0.1283 SL; +OMEP40CA27 PO; -OMEP40CA36 PO; -TRAM50TA2 PO; +TRM50T PO
--- NOTE | 2019-10-05 14:47 | Diagnostic Imaging Report ---
PROCEDURE: MRI lumbar spine. TECHNIQUE: Multiplanar, multisequence MRI of the lumbar spine was performed without contrast. INDICATION: Low back and left leg pain. COMPARISON: There are no previous MRI examinations available for comparison. FINDINGS: The T2 sagittal images show the vertebral body heights and alignment to be generally within normal limits and similar to the CT chest, abdomen, and pelvis exam of 07/06/2019. The intervertebral spaces are fairly well maintained, although there is desiccation of the discs at every level. At the L3-L4 level, there is a disc bulge centrally which flattens the ventral aspect of the thecal sac and narrows the AP diameter to approximately 11.1 mm. There is no significant neural foraminal narrowing at this level either. At the L4-L5 level, there is also slight disc bulge centrally. The AP diameter of the thecal sac measures 11.8 mm. There is no neural foraminal narrowing identified. There is no evidence for a central stenosis at L5-S1. However, there is moderate narrowing of the neural foramen on the left at this level. The remainder of the lumbar spine is unremarkable for spinal stenosis or nerve root encroachment. There is no abnormal signal arising from the cord or the vertebral bodies to indicate an acute abnormality. There is no sign of a paraspinal mass. IMPRESSION: 1. There is moderate degenerative disc disease throughout the lumbar spine. There is no evidence for a high-grade central stenosis at any level. However, there is moderate narrowing of the neural foramen on the left at L5-S1. 2. There is no sign of an acute bony abnormality or of a cord lesion. Dictated by: Dictated on workstation # [id number]
== END ==
LOC: RAD 13:09
PROVIDERS: ATTEND Internal Medicine
DX: M51.36 Other intervertebral disc degeneration, lumbar region (principal); M54.16 Radiculopathy, lumbar region
CPT/HCPCS: 72148

== ENCOUNTER 2020-01-14 09:12 | Emergency (ER) | payer MEDICAID ==
--- NOTE | 2020-01-14 09:16 | NUR ---
PT WHEELED BACK TO ROOM 07. STATES HE SLIPPED AND FELL IN THE BATHTUB HURTING THE BACK OF HIS LEFT THIGH. ASKED PT TO MOVE FROM WHEEL CHAIR TO BED ET PT REFUSED DUE TO PAIN. TOLD PT WE WOULD HAVE TO GET HIS PANTS OFF FOR A X-RAY AND PT REFUSED. PT STATES HE JUST WANTS SOMETHING FOR PAIN. EXPLAINED TO HIM HE WOULD NEED A XRAY TO PROVE NOTHING WAS BROKEN AND ENCOURAGED HIM AGAIN TO LET ME HELP HIM GET IN THE GOWN. PT REFUSED AND LEANAIAN STATES HE WANTS SOMETHING FOR PAIN AND WILL JUST LEAVE. TRIED TO TALK TO PT AGAIN AND HE SAID IM LEAVING ET TAKE ME TO MY CAR. TECH TOOK PT TO HIS CAR VIA WC ET PT TOLD TECH "UNFUCKING BELIEVABLE THAT YOU CANT JUST TELL THEM WHAT YOU WANT".
== END 2020-01-14 09:16 | disposition left against medical advice (07) ==
LOC: EDUNIT# 09:12 → ER 09:13
DX: M79.605 Pain in left leg (principal); W19.XXXA Unspecified fall, initial encounter

== ENCOUNTER → 2020-01-22 | Outpatient (CLI) | payer MEDICAID ==
[2020-01-22 11:34] LABS: BASOPHILS # (AUTO) 0.1 10^3/uL (0.0-0.1); BASOPHILS % (AUTO) 0 % (0-10); EOSINOPHILS # (AUTO) 0.3 10^3/uL (0.0-0.3); EOSINOPHILS % (AUTO) 2 % (0-10); HEMATOCRIT 37 % (40-54); HEMOGLOBIN 12.7 G/DL (13.3-17.7); LYMPHOCYTES # (AUTO) 2.3 X 10^3 (1.0-4.0); LYMPHOCYTES % (AUTO) 16 % (12-44); MEAN CORPUSCULAR HEMOGLOBIN 28 PG (25-34); MEAN CORPUSCULAR HGB CONC 34 G/DL (32-36); MEAN CORPUSCULAR VOLUME 81 FL (80-99); MEAN PLATELET VOLUME 9.1 FL (7.4-10.4); MONOCYTES # (AUTO) 0.8 X 10^3 (0.0-1.0); MONOCYTES % (AUTO) 5 % (0-12); NEUTROPHILS # (AUTO) 10.8 X 10^3 (1.8-7.8); NEUTROPHILS % (AUTO) 76 % (42-75); PLATELET COUNT 450 10^3/uL (130-400); RED CELL DISTRIBUTION WIDTH 14.3 % (10.0-14.5); WHITE BLOOD COUNT 14.2 10^3/uL (4.3-11.0)
[2020-01-22 11:41] LABS: ALBUMIN 3.8 GM/DL (3.2-4.5); POTASSIUM 4.3 MMOL/L (3.6-5.0)
[2020-01-22 11:42] LABS: CALCIUM 9.5 MG/DL (8.5-10.1)
[2020-01-22 11:44] LABS: TOTAL PROTEIN 8.2 GM/DL (6.4-8.2)
[2020-01-22 11:45] LABS: BILIRUBIN,TOTAL 0.6 MG/DL (0.1-1.0)
[2020-01-22 11:47] LABS: CREATININE SERUM 1.64 MG/DL (0.60-1.30)
[2020-01-22 11:57] LABS: BAND NEUTROPHILS 1 %; BASOPHILS % (MANUAL) 1 %; EOSINOPHILS % (MANUAL) 0 %; LYMPHOCYTES % (MANUAL) 15 %; MONOCYTES % (MANUAL) 9 %; NEUTROPHILS % (MANUAL) 73 %; REACTIVE LYMPHOCYTES 1 %
[2020-01-22 11:58] LABS: RBC MORPH NORMAL
--- NOTE | 2020-01-22 13:24 | Diagnostic Imaging Report ---
EXAMINATION: Right foot at 11:48 a.m. INDICATION: Infected third toe. FINDINGS: Three views were obtained. There are no prior studies available for comparison. Reportedly, there is clinical concern regarding osteomyelitis of the third toe. There is no evidence for bony destruction of the phalanges of the third digit to suggest osteomyelitis. There does seem to be soft tissue edema about the distal phalanx of the second digit, however. The tuft of the distal phalanx is somewhat indistinct and there could be an element of osteomyelitis in this area. If further imaging is desired, then MRI would be recommended. There is no other bony destruction to indicate osteomyelitis. There is fairly severe degenerative disease involving the interphalangeal joint of the great toe. The Lisfranc joint is well maintained. There is a small calcaneal spur. IMPRESSION: 1. There is no evidence for osteomyelitis of the third digit, but there may be osteomyelitis involving the distal phalanx of the second digit. Recommendations as above. 2. There is no acute bony abnormality noted otherwise. Dictated by: Dictated on workstation # [id number]
== END ==
LOC: RAD 11:11
PROVIDERS: ATTEND Surgery
DX: M86.471 Chronic osteomyelitis with draining sinus, right ankle and foot (principal)
CPT/HCPCS: 36415; 73630; 80053; 83036; 84134; 85007; 85027

== ENCOUNTER → 2020-01-22 | Outpatient (CLI) | payer MEDICAID | LOC: WOUNDCARE 08:32 | PROVIDERS: ATTEND Surgery | DX: E11.621 Type 2 diabetes mellitus with foot ulcer (principal); E11.42 Type 2 diabetes mellitus with diabetic polyneuropathy; E11.65 Type 2 diabetes mellitus with hyperglycemia; E11.52 Type 2 diabetes mellitus with diabetic peripheral angiopathy with gangrene; I70.262 Atherosclerosis of native arteries of extremities with gangrene, left leg; L97.526 Non-pressure chronic ulcer of other part of left foot with bone involvement without evidence of necrosis; M86.471 Chronic osteomyelitis with draining sinus, right ankle and foot; E66.01 Morbid (severe) obesity due to excess calories; J44.9 Chronic obstructive pulmonary disease, unspecified; Z68.34 Body mass index [BMI] 34.0-34.9, adult | CPT/HCPCS: 99214 ==

== ENCOUNTER → 2020-01-31 | Outpatient (CLI) | payer MEDICAID | LOC: WOUNDCARE 10:26 | PROVIDERS: ATTEND Surgery | DX: E11.621 Type 2 diabetes mellitus with foot ulcer (principal); E11.42 Type 2 diabetes mellitus with diabetic polyneuropathy; E11.65 Type 2 diabetes mellitus with hyperglycemia; L97.521 Non-pressure chronic ulcer of other part of left foot limited to breakdown of skin; L97.526 Non-pressure chronic ulcer of other part of left foot with bone involvement without evidence of necrosis; M86.471 Chronic osteomyelitis with draining sinus, right ankle and foot; I70.245 Atherosclerosis of native arteries of left leg with ulceration of other part of foot; E66.01 Morbid (severe) obesity due to excess calories; J44.9 Chronic obstructive pulmonary disease, unspecified; Z87.891 Personal history of nicotine dependence; G47.30 Sleep apnea, unspecified; I70.235 Atherosclerosis of native arteries of right leg with ulceration of other part of foot; I72.9 Aneurysm of unspecified site; E78.5 Hyperlipidemia, unspecified | CPT/HCPCS: 99213 ==

== ENCOUNTER 2021-03-15 08:41 | Emergency (ER) | payer MEDICAID ==
[~2021-03-15] VITALS: Ht 175 cm; Wt 118.1 kg
[~2021-03-15 08:41] MED LIST changes: -OMEP40CA27 PO; +OMEP40CA6 PO
[2021-03-15 08:45] VITALS: BP 173/95
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
[2021-03-15] MEDS ORDERED: GABAPENTIN 600 MG (NEURONTIN) TAB PO ONE (09:00)
== END 2021-03-15 10:08 | disposition left against medical advice (07) ==
LOC: EDUNIT# 08:41 → ER 08:44
DX: R05 Cough (principal); T50.B95A Adverse effect of other viral vaccines, initial encounter; R45.4 Irritability and anger; E11.40 Type 2 diabetes mellitus with diabetic neuropathy, unspecified; I10 Essential (primary) hypertension; J44.9 Chronic obstructive pulmonary disease, unspecified; G89.29 Other chronic pain; M54.9 Dorsalgia, unspecified; E66.9 Obesity, unspecified; Z91.19 Patient's noncompliance with other medical treatment and regimen; Z68.38 Body mass index [BMI] 38.0-38.9, adult; Z79.4 Long term (current) use of insulin; Z79.891 Long term (current) use of opiate analgesic
CPT/HCPCS: 82947; 99283

== ENCOUNTER 2021-06-29 13:22 | Emergency (ER) | payer MEDICAID ==
[~2021-06-29] VITALS: Ht 175 cm; Wt 90.7 kg
[2021-06-29 13:37] VITALS: BP 147/99
[2021-06-29 13:52] LABS: BILIRUBIN,URINE NEGATIVE (NEGATIVE); CLARITY,URINE CLEAR; COLOR,URINE YELLOW; GLUCOSE, URINE (UA) 3+ (NEGATIVE); KETONES,URINE NEGATIVE (NEGATIVE); LEUKOCYTE ESTERASE ,URINE NEGATIVE (NEGATIVE); NITRITE,URINE NEGATIVE (NEGATIVE); PROTEIN,URINE 2+ (NEGATIVE)
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
[2021-06-29 13:59] LABS: BACTERIA,URINE TRACE /HPF; RBC,URINE 0-2 /HPF; WBC,URINE 0-2 /HPF
[2021-06-29 14:07] LABS: AMPHETAMINE SCREEN, URINE POSITIVE (NEGATIVE); BARBITURATE SCREEN URINE NEGATIVE (NEGATIVE); BENZODIAZEPINES SCREEN URINE NEGATIVE (NEGATIVE); CANNABINOID SCREEN, URINE NEGATIVE (NEGATIVE); COCAINE SCREEN URINE NEGATIVE (NEGATIVE); METHADONE STAT NEGATIVE (NEGATIVE); METHAMPHETAMINE SCREEN URINE S POSITIVE (NEGATIVE); OPIATE SCREEN URINE NEGATIVE (NEGATIVE); OXYCODONE STAT NEGATIVE (NEGATIVE); PROPOXYPHENE STAT NEGATIVE (NEGATIVE); TRICYCLIC ANTIDEPRESSANTS SCRE NEGATIVE (NEGATIVE)
== END 2021-06-29 14:25 | disposition left against medical advice (07) ==
LOC: EDUNIT# 13:22 → ER 13:23
DX: R10.30 Lower abdominal pain, unspecified (principal); F15.90 Other stimulant use, unspecified, uncomplicated; J44.9 Chronic obstructive pulmonary disease, unspecified; I10 Essential (primary) hypertension; E11.9 Type 2 diabetes mellitus without complications; E66.9 Obesity, unspecified; Z79.4 Long term (current) use of insulin; Z68.29 Body mass index [BMI] 29.0-29.9, adult
CPT/HCPCS: 80306; 81000; 99283

== ENCOUNTER 2021-10-10 08:27 | Emergency (ER) | payer MEDICAID ==
[~2021-10-10 08:27] MED LIST changes: +CYCL10TA25 PO; -CYCL10TA9 PO; +DICY20TA PO; -DICY20TA10 PO; +POTA-179 PO; -POTA20TA15 PO
[2021-10-10] MEDS ORDERED: NALOXONE 2 MG/2 ML (NARCAN) SYR ONE (08:31)
[2021-10-10] MEDS ORDERED: NALOXONE 2 MG/2 ML (NARCAN) SYR IV STA (08:45)
[2021-10-10] MEDS ORDERED: NS IV 1000 ML 1,000 ML IV STA ×2 (08:45→11:25)
[2021-10-10 08:52] LABS: BASOPHILS % (AUTO) 1 % (0-10); EOSINOPHILS # (AUTO) 0.1 10^3/uL (0.0-0.3); EOSINOPHILS % (AUTO) 2 % (0-10); LYMPHOCYTES # (AUTO) 0.6 10^3/uL (1.0-4.0); LYMPHOCYTES % (AUTO) 11 % (12-44); MEAN CORPUSCULAR HEMOGLOBIN 25 pg (25-34); MEAN CORPUSCULAR HGB CONC 31 g/dL (32-36); MEAN CORPUSCULAR VOLUME 82 fL (80-99); MEAN PLATELET VOLUME 9.4 fL (9.0-12.2); MONOCYTES # (AUTO) 0.6 10^3/uL (0.0-1.0); MONOCYTES % (AUTO) 10 % (0-12); NEUTROPHILS # (AUTO) 4.3 10^3/uL (1.8-7.8); NEUTROPHILS % (AUTO) 75 % (42-75); PLATELET COUNT 264 10^3/uL (130-400); WHITE BLOOD COUNT 5.8 10^3/uL (4.3-11.0)
[2021-10-10 08:53] LABS: BILIRUBIN,URINE 1+ (NEGATIVE); CLARITY,URINE TURBID; COLOR,URINE YELLOW; GLUCOSE, URINE (UA) TRACE (NEGATIVE); KETONES,URINE NEGATIVE (NEGATIVE); LEUKOCYTE ESTERASE ,URINE NEGATIVE (NEGATIVE); NITRITE,URINE NEGATIVE (NEGATIVE); PH,URINE 5.5 (5-9); PROTEIN,URINE TRACE (NEGATIVE)
--- NOTE | 2021-10-10 08:53 | ED General ---
General Stated Complaint: SOMNOLENT Source of Information: Patient, EMS, Detention Records History of Present Illness Date Seen by Provider: Oct 10, 2021 Time Seen by Provider: 08:27 Initial Comments 61-year-old male presenting from [facility] by EMS with decreased responsiveness. He does have a history of prostate cancer and is on narcotic pain medications. He is reportedly scheduled to go to the cancer center for a blood transfusion today. He is somnolent on arrival but opens his eyes to voice. He is maintaining an oxygen saturation of 92 to 95% on room air. He was not following commands but did have purposeful movement. His abdomen seemed distended and he did respond when palpating his suprapubic area. he had little to no urine output in the leong catheter or bag. He had dry mouth with thick mucus at back of his throat on exam. NH reported to EMS that his baseline mental status is to be swearing and combative. Associated Systoms: No Diaphoresis, No Fever/Chills, No Shortness of Air Allergies and Home Medications Allergies Coded Allergies: hydrocodone (Unverified Allergy, Unknown, hives, 02/08/19) aspirin (Unverified Adverse Reaction, Unknown, angioedema, 02/08/19) lisinopril (Unverified Adverse Reaction, Unknown, angioedema, 02/08/19) Patient Home Medication List Home Medication List Reviewed: Yes Azithromycin (Zithromax) 500 Mg Tablet, 500 MG PO DAILY Prescribed by: LANCE MARTINI on 07/06/19415 Cefdinir (Cefdinir) 300 Mg Capsule, 300 MG PO BID Prescribed by: LANCE MARTINI on 07/06/19415 Dicyclomine HCl (Dicyclomine HCl) 20 Mg Tablet, 20 MG PO Q6H Prescribed by: LANCE MARTINI on 07/06/19415 Hyoscyamine Sulfate (Levsin-Sl) 0.125 Mg Tab.subl, 1-2 TAB SL Q4H Prescribed by: LANCE MARTINI on 07/06/19415 Insulin Lispro (Humalog Kwikpen) 100 Unit/1 Ml Insuln.pen, 15 UNITS SC TIDWM, (Reported) Entered as Reported by: MARS BAZZI on 06/26/19 1327 Metformin HCl (Metformin HCl) 1,000 Mg Tablet, 1,000 MG PO BID, (Reported) Entered as Reported by: MARS BAZZI on 06/26/19 1327 Omeprazole (Omeprazole) 40 Mg Capsule.dr, 40 MG PO DAILY, (Reported) Entered as Reported by: MARS BAZZI on 06/26/19 1328 Tramadol HCl (Tramadol HCl) 50 Mg Tablet, 50 MG PO PRN, (Reported) Entered as Reported by: BENNETT JOHNSTON on 07/06/19 0235 Review of Systems Review of Systems Constitutional: no symptoms reported EENTM: no symptoms reported Respiratory: No short of breath Cardiovascular: edema Gastrointestinal: abdominal pain (seems tender over suprapubic area with some distention) Genitourinary: other (leong catheter in place but no significant urine output in the catheter) Psychiatric/Neurological: Other (somnolent but awakens to voice and opens his eyes) pt somnolent and not answering questions on arrival Past Ynyehya-Civxku-Sogssp Hx Past Medical History Surgery/Hospitalization HX: PMH: DM, NEUROPATHY. 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) Reproductive Disorders: No Genitourinary: No Gastrointestinal: Yes (CHRONIC GI COMPLAINTS) Musculoskeletal: Yes (CHRONIC GENERALIZED PAIN COMPLAINTS, ESPECIALLY TO LEGS AND FEET AND BACK) Chronic Back Pain Endocrine: Yes (OBESE; EXTERME NON-COMPLIANCE IN ALL ASPECTS OF CARE) Diabetes, Insulin dep HEENT: No Cancer: No Psychosocial: No Integumentary: No Blood Disorders: No Family Medical History No Pertinent Family Hx PT HAS BEEN RELEASED FROM [facility] IN 2019 PT WITH EXTREME NON-COMPLIANCE IN ALL ASPECTS OF CARE PT HAS FREQUENTLY LEFT WITHOUT BEING SEEN OR LEFT AMA LONG HISTORY OF DRUG SEEKING BEHAVIOR Physical Exam Vital Signs Vital Signs - First Documented 10/10/21 09:14 Temp 36.2 Pulse 84 Resp 16 B/P (MAP) 124/62 (82) Pulse Ox 94 O2 Delivery Room Air Capillary Refill : Height, Weight, BMI Height: 5'9.00" Weight: 251lbs. 0oz. [id number]; 29.00 BMI Method:Actual General Appearance: Obese, Other (somnolent) HEENT: PERRL/EOMI (pupils are 3 mm bilaterally and reactive); No Moist Mucous Membranes (dry mucous membranes) Neck: Non Tender, Supple Respiratory: Chest Non Tender, Lungs Clear, Normal Breath Sounds, No Accessory Muscle Use, No Respiratory Distress Cardiovascular: Regular Rate, Rhythm, Normal Peripheral Pulses Gastrointestinal: Normal Bowel Sounds, No Pulsatile Mass, Soft Rectal: Deferred Extremity: Pedal Edema (1 plus pitting edema BLE) Neurologic/Psychiatric: Other (somnolent but then became alert and back to baseline upon administering 1 mg of Narcan) Skin: Warm/Dry Progress/Results/Core Measures Suspected Sepsis SIRS Temperature: Pulse: Respiratory Rate: Laboratory Tests 10/10/21 08:30: White Blood Count 5.8 Blood Pressure / Mean: Laboratory Tests 10/10/21 08:30: Creatinine 6.27H, Platelet Count 264, Total Bilirubin 0.3 Results/Orders Lab Results Laboratory Tests Test 10/10/21 08:30 10/10/21 08:45 Range/Units White Blood Count 5.8 4.3-11.0 10^3/uL Red Blood Count 1.97 L 4.30-5.52 10^6/uL Hemoglobin 5.0 *L 13.3-17.7 g/dL Hematocrit 16 *L 40-54 % Mean Corpuscular Volume 82 80-99 fL Mean Corpuscular Hemoglobin 25 25-34 pg Mean Corpuscular Hemoglobin Concent 31 L 32-36 g/dL Red Cell Distribution Width 20.7 H 10.0-14.5 % Platelet Count 264 130-400 10^3/uL Mean Platelet Volume 9.4 9.0-12.2 fL Immature Granulocyte % (Auto) 2 % Neutrophils (%) (Auto) 75 42-75 % Lymphocytes (%) (Auto) 11 L 12-44 % Monocytes (%) (Auto) 10 0-12 % Eosinophils (%) (Auto) 2 0-10 % Basophils (%) (Auto) 1 0-10 % Neutrophils # (Auto) 4.3 1.8-7.8 10^3/uL Lymphocytes # (Auto) 0.6 L 1.0-4.0 10^3/uL Monocytes # (Auto) 0.6 0.0-1.0 10^3/uL Eosinophils # (Auto) 0.1 0.0-0.3 10^3/uL Basophils # (Auto) 0.0 0.0-0.1 10^3/uL Immature Granulocyte # (Auto) 0.1 0.0-0.1 10^3/uL Sodium Level 127 L 135-145 MMOL/L Potassium Level 6.2 H 3.6-5.0 MMOL/L Chloride Level 91 L 98-107 MMOL/L Carbon Dioxide Level 17 L 21-32 MMOL/L Anion Gap 19 H 5-14 MMOL/L Blood Urea Nitrogen 96 H 7-18 MG/DL Creatinine 6.27 H 0.60-1.30 MG/DL Estimat Glomerular Filtration Rate 9 BUN/Creatinine Ratio 15 Glucose Level 155 H 70-105 MG/DL Calcium Level 6.6 L 8.5-10.1 MG/DL Corrected Calcium 7.4 L 8.5-10.1 MG/DL Total Bilirubin 0.3 0.1-1.0 MG/DL Aspartate Amino Transf (AST/SGOT) 9 5-34 U/L Alanine Aminotransferase (ALT/SGPT) < 5 0-55 U/L Alkaline Phosphatase 467 H 40-136 U/L Total Protein 6.8 6.4-8.2 GM/DL Albumin 3.0 L 3.2-4.5 GM/DL Urine Color YELLOW Urine Clarity TURBID Urine pH 5.5 5-9 Urine Specific [place] 1.025 H 1.016-1.022 Urine Protein TRACE H NEGATIVE Urine Glucose (UA) TRACE H NEGATIVE Urine Ketones NEGATIVE NEGATIVE Urine Nitrite NEGATIVE NEGATIVE Urine Bilirubin 1+ H NEGATIVE Urine Urobilinogen 0.2 < = 1.0 MG/DL Urine Leukocyte Esterase NEGATIVE NEGATIVE Urine RBC (Auto) 3+ H NEGATIVE Urine RBC 25-50 H /HPF Urine WBC NONE /HPF Urine Squamous Epithelial Cells RARE /HPF Urine Crystals NONE /LPF Urine Bacteria NEGATIVE /HPF Urine Casts PRESENT /LPF Urine Hyaline Casts 0-2 H /LPF Urine Mucus SMALL H /LPF Urine Culture Indicated NO Urine Opiates Screen POSITIVE H NEGATIVE Urine Oxycodone Screen POSITIVE H NEGATIVE Urine Methadone Screen NEGATIVE NEGATIVE Urine Propoxyphene Screen NEGATIVE NEGATIVE Urine Barbiturates Screen NEGATIVE NEGATIVE Ur Tricyclic Antidepressants Screen POSITIVE H NEGATIVE Urine Phencyclidine Screen NEGATIVE NEGATIVE Urine Amphetamines Screen NEGATIVE NEGATIVE Urine Methamphetamines Screen NEGATIVE NEGATIVE Urine Benzodiazepines Screen NEGATIVE NEGATIVE Urine Cocaine Screen NEGATIVE NEGATIVE Urine Cannabinoids Screen NEGATIVE NEGATIVE My Orders Orders - EL GIL MD Naloxone Injection (Narcan Injection) (10/10/21 08:31) Comprehensive Metabolic Panel (10/10/21 08:45) Ua Culture If Indicated (10/10/21 08:45) Ed Iv/Invasive Line Start (10/10/21 08:45) Cbc With Automated Diff (10/10/21 08:45) Leong Cath (10/10/21 08:45) Naloxone Injection (Narcan Injection) (10/10/21 08:45) Ns Iv 1000 Ml (Sodium Chloride 0.9%) (10/10/21 08:45) Ct Head Wo (10/10/21 09:02) Chest 1 View Ap/Pa Only (10/10/21 09:02) Drug Screen Stat (Urine) (10/10/21 09:11) Hand 3 View Right (10/10/21 09:36) Ekg Tracing (10/10/21 10:03) Monitor-Rhythm Ecg Trace Only (10/10/21 10:03) Calcium Gluconate 10% Inj (Calcium Glu (10/10/21 10:03) Insulin (Regular) Human (Novolin R (Per (10/10/21 10:03) D50w (Emergency) Syringe (Dextrose 50% 5 (10/10/21 10:03) Calc Gluc 1 Gm/100 Ml Ivpb (Calcium Gluc (10/10/21 10:17) Ns Iv 1000 Ml (Sodium Chloride 0.9%) (10/10/21 10:30) Ns Iv 1000 Ml (Sodium Chloride 0.9%) (10/10/21 11:25) Medications Given in ED Current Medications Medications Dose Ordered Sig/Zack Route Start Time Stop Time Status Last Admin Dose Admin Calcium Gluconate/ Sodium Chloride 100 ml @ ud STK-MED ONCE IV 10/10/21 10:17 10/10/21 10:21 DC 10/10/21 10:26 100 MLS/HR Vital Signs/I&O 10/10/21 10/10/21 09:14 11:01 Temp 36.2 36.5 Pulse 84 92 Resp 16 20 B/P (MAP) 124/62 (82) 135/60 Pulse Ox 94 100 O2 Delivery Room Air Room Air Capillary Refill : Progress Note #1: Progress Note Obtain basic labs to check his hemoglobin and chemistry. Administer 1 mg of Narcan to see if he might be oversedated and somnolent from his opiate medications he takes for chronic pain. After administering the 1 mg of Narcan he very quickly became alert and back to his baseline per custodial report to EMS. He was also complaining that he needed to pee and have a bowel movement. When attempting to flush his Leong catheter to see if any urine output could be produced the catheter appeared to be clogged and could not be flushed. This was changed out to a new catheter and he had 1300 mL of urine returned and relief of his pressure on his bladder and lower abdomen. He was able to cough up his sputum that had dried in his mucous membranes after he was more alert with the Narcan and drank some water to help with dry mucous membranes. With his increased somnolence will add CT head to check for acute changes that might be contributing beyond his medicines. CXR to look for acute findings that might contribute to his somnolence. Progress Note #2: Time: 08:55 Progress Note Lab called and his Hgb is 5 with Hct 16. [facility] reports he had Hgb 5.7 earlier this week. They are speaking with Dr. Calvert to see if they can get him transfused still or what needs to happen for that. Progress Note #3: Time: 09:[address] Calvert called about the patient. He advised the patient was seen late in the day Wednesday and with his hgb of 5.7 they wanted to get him a unit of blood but were unable to get it that night. Due to weather he was not brought down [place] rsday. There is a unit of blood waiting for him in [place] but when he was more somnolent this am the [facility] sent him to the ED. Dr. Calvert also advised the pt was noted to have a GFR of 15 Wednesday so they wanted to give him some IVF for hydration as well since the family reports he is not eating and drinking as much. I advised him we are giving him some fluids and he was drinking water here as well once he was awake from the Narcan reversing some of his opiates. Waiting on chemistry and added on CT head and cxr to further eval his somnolence. Per Dr. Calvert pt had been walking and taking care of himself a little over a month ago. Once the tests are back will check back with Dr. Calvert and determine plan if he can still come and get blood or if he needs to be admitted somewhere with nephrology for kidney issues. If his kidneys are not filtering as well then certainly the opiates will have increased effect on him so he may not need as much of a dose. Progress Note #4: Time: 09:29 Progress Note His sister was concerned about swelling in his right hand and wanted an xray to make sure that he had not had a broken hand. She reports he had a bump that was swollen on his hand earlier this week. Progress Note #5: Progress Note Hand xray does not show any acute fracture. 952 d/w Dr. Calvert and since pt had Cr 4 on Wednesday he recommends transfer to [facility] as he was recently admitted there. They could transfuse him and work with his kidney function. Dr. Puentes states that he will send the crossmatched blood back to [facility] in hopes that he could still get the unit of blood. We will leave the blood bank bracelet on his right wrist to try and help facilitate the transfusion. 0955Page placed to [facility] in [place] for setting up transfer. I spoke with RON Camilo, at the transfer center and she took some basic information and will have the Hospitalist call me back when he can break free from rounding on patients. 1040 d/w Dr. Vega and he accepted pt for transfer to [facility]. Pt has had a significant amount of urine output since he had leong catheter changed out. will work on treating his hyperkalemia of 6.2 and proceed with transfer once a room is available. ECG Initial ECG Impression Date: Oct 10, 2021 Initial ECG Impression Time: 11:37 Initial ECG Rate: 93 Initial ECG Rhythm: Normal Sinus Initial ECG Comparisson: Unchanged Comment Normal sinus rhythm with heart rate 93 bpm. MT interval 146 ms. Probable left atrial enlargement. Low voltage in the extremity leads. Repolarization changes in the anterolateral leads. There is baseline wander and artifact on the tracing. QT interval 364 ms with a QTc interval 453 ms. There is no acute ST elevation. He does have some global T wave flattening. Overall appears similar to prior tracings Diagnostic Imaging Diagonstic Imaging: Xray Plain Films/CT/US/NM/MRI: chest Comments [facility] [place], [place] NAME: GWENDOLYN [facility] REC#: [id number] PT STATUS: REG ER : 1960 PHYSICIAN: EL GIL MD ADMIT DATE: 10/10/21/ER FS Draft Date of Exam:10/10/21 CHEST 1 VIEW AP/PA ONLY INDICATION: somnolent, decreased responsiveness. TECHNIQUE: Single view chest 9:08 AM. CORRELATION STUDY: 07/06/2019 FINDINGS: Heart size and mediastinum are enlarged and prominent. Vasculature overall within normal limits. There areas of asymmetric opacity within multifocal areas of nodularity suggested. Limited imaging the osseous structures demonstrate scattered areas of what appear to be increased sclerotic density. Additionally, there is a nondisplaced lateral left 8th rib fracture appearing to be likely nonacute. IMPRESSION: 1. Abnormal appearing chest with multiple findings. Given presence of what appears to be suggestion pulmonary nodules and prominent mediastinum. CT imaging of the chest is recommended to exclude underlying mass and/or adenopathy. 2. Cardiac enlargement without overt failure. 3. Suggest areas of increased density osseous structures. Osseous sclerotic metastatic disease is not excluded but also can be assessed at follow-up CT. Dictated on workstation # [id number] Dict: 10/10/21927 Trans: 10/10/21939 [facility] [id number] Interpreted by: MIK CHAMBERLAIN DO Electronically signed by: Reviewed: Reviewed by Nd Diagonstic Imaging: CT Plain Films/CT/US/NM/MRI: head Comments NAME: GWENDOLYN [facility] REC#: [id number] PT STATUS: REG ER : 1960 PHYSICIAN: EL GIL MD ADMIT DATE: 10/10/21/ER FS Draft Date of Exam:10/10/21 CT HEAD WO PROCEDURE: CT head without contrast. TECHNIQUE: Multiple contiguous axial images were obtained through the brain without the use of intravenous contrast. Auto Exposure Controls were utilized during the CT exam to meet ALARA standards for radiation dose reduction. INDICATION: Somnolence, decreased responsiveness, confusion COMPARISON: None available FINDINGS: Mild atrophy. No intracranial hemorrhage. No intracranial mass, mass effect, midline shift, herniation, hydrocephalus, or extra-axial fluid collection. Periventricular and subcortical white matter hypodensities are present, most consistent with mild background chronic small vessel white matter ischemic disease. No CT evidence of an acute ischemic infarction. The orbits are unremarkable. Mild mucosal thickening within the right sphenoid sinus. The paranasal sinuses are otherwise clear. The calvarium and extracalvarial soft tissues are unremarkable. IMPRESSION: No acute intracranial abnormality with mild atrophy and mild background chronic small vessel white matter ischemic disease present. Dictated on workstation # [id number] Dict: 10/10/21 0937 Trans: 10/10/21 0943 [facility] [id number] Interpreted by: KANE HENLEY MD Electronically signed by: Reviewed: Reviewed by Me Diagonstic Imaging: Xray Plain Films/CT/US/NM/MRI: hand Comments NAME: GWENDOLYN [facility] REC#: [id number] PT STATUS: REG ER : 1960 PHYSICIAN: EL GIL MD ADMIT DATE: 10/10/21/ER FS Draft Date of Exam:10/10/21 HAND 3 VIEW RIGHT INDICATION: Swelling to the palm of the hand, painful, no known trauma. TECHNIQUE: Three views of the right hand. CORRELATION STUDY: None FINDINGS: The fingers are held in partial flexion which does not sensitivity for assessment. There does appear to be rather significant degenerative changes through the interphalangeal joints, slightly greater involving the distal joints which includes joint space narrowing and prominent overhanging osteophyte formation. No alexandrea periarticular erosive change. Metacarpophalangeal joints appear to be slightly better maintained. However, there is narrowing and slight irregularity to the articular surface particularly at the 1st metacarpophalangeal joint. There is moderately advanced degenerative change of the 1st carpometacarpal articulation which includes mild lateral subluxation. There is narrowing at the radiocarpal row. There is fragmentation at the scaphoid bone likely owing to more remote fracture with multifocal bone fragments present. There is rather prominent generalized soft tissue swelling of the hand. Appears to be most pronounced along the dorsal aspect. There is noted a thin linear metallic wire-like density within soft tissues of the index finger near the proximal interphalangeal joint. IMPRESSION: 1. Negative for acute bony abnormality of the hand. Advanced multicompartment degenerative changes of the hand present. Most pronounced at the interphalangeal joints. Also more prominent degenerative changes of the 1st carpometacarpal articulation at the radiocarpal row. 2. Rather extensive soft tissue swelling particularly along the dorsal aspect of the hand. 3. Findings compatible with a small, metallic soft tissue foreign body within the index finger. 4. Extensive fragmentation and distortion of the scaphoid bone. Favors probable more remote trauma. Dictated on workstation # [id number] Dict: 10/10/21 0945 Trans: 10/10/21 0951 [facility] [id number] Interpreted by: MIK CHAMBERLAIN DO Electronically signed by: Reviewed: Reviewed by Me Departure Impression Primary Impression: Acute renal failure Qualified Codes: N17.9 - Acute kidney failure, unspecified Additional Impressions: Hyperkalemia Anemia Qualified Codes: D64.9 - Anemia, unspecified Prostate cancer metastatic to multiple sites History of methamphetamine abuse Disposition: XF SHT-TRM HOSP Condition: Stable Transfer Transfer Reason: Exceeds level of care (Needs Nephrology for renal failure) Time Spoke to Accepting Phy: 10:40 Transfer Progress Notes d/w Dr. Vega about transfer. he accepted pt to [facility]. Will work on room on renal floor possibly. Transfer Facility: [facility]a [place] Method of Transfer: EMS Departure-Patient Inst. Referrals: ARNOLDO PALACIOS MD (PCP/Family) Primary Care Physician EL GIL MD Oct 10, 2021 08:53
[2021-10-10 08:55] LABS: HEMATOCRIT 16 % (40-54)
[2021-10-10 09:16] LABS: BACTERIA,URINE NEGATIVE /HPF; HYALINE CASTS, URINE 0-2 /LPF; RBC,URINE 25-50 /HPF; SQUAMOUS EPITHELIAL CELL,UR RARE /HPF
[2021-10-10 09:30] LABS: OPIATE SCREEN URINE POSITIVE (NEGATIVE)
[2021-10-10 09:31] LABS: AMPHETAMINE SCREEN, URINE NEGATIVE (NEGATIVE); BARBITURATE SCREEN URINE NEGATIVE (NEGATIVE); BENZODIAZEPINES SCREEN URINE NEGATIVE (NEGATIVE); CANNABINOID SCREEN, URINE NEGATIVE (NEGATIVE); COCAINE SCREEN URINE NEGATIVE (NEGATIVE); METHADONE STAT NEGATIVE (NEGATIVE); METHAMPHETAMINE SCREEN URINE S NEGATIVE (NEGATIVE); OXYCODONE STAT POSITIVE (NEGATIVE); PROPOXYPHENE STAT NEGATIVE (NEGATIVE); TRICYCLIC ANTIDEPRESSANTS SCRE POSITIVE (NEGATIVE)
[2021-10-10 09:38] LABS: CARBON DIOXIDE 17 MMOL/L (21-32); CHLORIDE 91 MMOL/L (98-107); POTASSIUM 6.2 MMOL/L (3.6-5.0); SODIUM 127 MMOL/L (135-145)
[2021-10-10 09:39] LABS: ALANINE AMINOTRANSFERASE < 5 U/L (0-55); ALKALINE PHOSPHATASE 467 U/L (40-136); BILIRUBIN,TOTAL 0.3 MG/DL (0.1-1.0); BUN/CREATININE RATIO 15; CALCIUM 6.6 MG/DL (8.5-10.1); CREATININE SERUM 6.27 MG/DL (0.60-1.30); GFR ESTIMATED 9; GLUCOSE 155 MG/DL (70-105); TOTAL PROTEIN 6.8 GM/DL (6.4-8.2)
--- NOTE | 2021-10-10 09:40 | Diagnostic Imaging Report ---
INDICATION: somnolent, decreased responsiveness. TECHNIQUE: Single view chest 9:08 AM. CORRELATION STUDY: 07/06/2019 FINDINGS: Heart size and mediastinum are enlarged and prominent. Vasculature overall within normal limits. There areas of asymmetric opacity within multifocal areas of nodularity suggested. Limited imaging the osseous structures demonstrate scattered areas of what appear to be increased sclerotic density. Additionally, there is a nondisplaced lateral left 8th rib fracture appearing to be likely nonacute. IMPRESSION: 1. Abnormal appearing chest with multiple findings. Given presence of what appears to be suggestion pulmonary nodules and prominent mediastinum. CT imaging of the chest is recommended to exclude underlying mass and/or adenopathy. 2. Cardiac enlargement without overt failure. 3. Suggest areas of increased density osseous structures. Osseous sclerotic metastatic disease is not excluded but also can be assessed at follow-up CT. Dictated by: Dictated on workstation # [id number]
--- NOTE | 2021-10-10 09:44 | Diagnostic Imaging Report ---
PROCEDURE: CT head without contrast. TECHNIQUE: Multiple contiguous axial images were obtained through the brain without the use of intravenous contrast. Auto Exposure Controls were utilized during the CT exam to meet ALARA standards for radiation dose reduction. INDICATION: Somnolence, decreased responsiveness, confusion COMPARISON: None available FINDINGS: Mild atrophy. No intracranial hemorrhage. No intracranial mass, mass effect, midline shift, herniation, hydrocephalus, or extra-axial fluid collection. Periventricular and subcortical white matter hypodensities are present, most consistent with mild background chronic small vessel white matter ischemic disease. No CT evidence of an acute ischemic infarction. The orbits are unremarkable. Mild mucosal thickening within the right sphenoid sinus. The paranasal sinuses are otherwise clear. The calvarium and extracalvarial soft tissues are unremarkable. IMPRESSION: No acute intracranial abnormality with mild atrophy and mild background chronic small vessel white matter ischemic disease present. Dictated by: Dictated on workstation # [id number]
--- NOTE | 2021-10-10 09:52 | Diagnostic Imaging Report ---
INDICATION: Swelling to the palm of the hand, painful, no known trauma. TECHNIQUE: Three views of the right hand. CORRELATION STUDY: None FINDINGS: The fingers are held in partial flexion which does not sensitivity for assessment. There does appear to be rather significant degenerative changes through the interphalangeal joints, slightly greater involving the distal joints which includes joint space narrowing and prominent overhanging osteophyte formation. No alexandrea periarticular erosive change. Metacarpophalangeal joints appear to be slightly better maintained. However, there is narrowing and slight irregularity to the articular surface particularly at the 1st metacarpophalangeal joint. There is moderately advanced degenerative change of the 1st carpometacarpal articulation which includes mild lateral subluxation. There is narrowing at the radiocarpal row. There is fragmentation at the scaphoid bone likely owing to more remote fracture with multifocal bone fragments present. There is rather prominent generalized soft tissue swelling of the hand. Appears to be most pronounced along the dorsal aspect. There is noted a thin linear metallic wire-like density within soft tissues of the index finger near the proximal interphalangeal joint. IMPRESSION: 1. Negative for acute bony abnormality of the hand. Advanced multicompartment degenerative changes of the hand present. Most pronounced at the interphalangeal joints. Also more prominent degenerative changes of the 1st carpometacarpal articulation at the radiocarpal row. 2. Rather extensive soft tissue swelling particularly along the dorsal aspect of the hand. 3. Findings compatible with a small, metallic soft tissue foreign body within the index finger. 4. Extensive fragmentation and distortion of the scaphoid bone. Favors probable more remote trauma. Dictated by: Dictated on workstation # [id number]
[2021-10-10] MEDS ORDERED: CALCIUM GLUC. 10% 4.65 MEQ/10 ML VIAL IV STA (10:03)
[2021-10-10] MEDS ORDERED: inSUlin (REGULAR) HUMAN 1 UNIT/0.01 ML (CHARGE PER UNIT) SC STA (10:03)
[2021-10-10] MEDS ORDERED: DEXTROSE 50% 50 ML (IMS) SYR IV STA (10:03)
[2021-10-10] MEDS ORDERED: CALC GLUC 1 GM/100 ML IVPB 100 ML IV ONE (10:17)
[2021-10-10] MEDS ORDERED: NS IV 1000 ML 1,000 ML ONE (10:30)
[2021-10-10 11:01] VITALS: BP 135/60
== END 2021-10-10 13:45 | disposition short-term general hospital (02) ==
LOC: EDUNIT# 08:27 → ER FS 08:28
DX: N17.9 Acute kidney failure, unspecified (principal); D64.9 Anemia, unspecified; F15.10 Other stimulant abuse, uncomplicated; E87.5 Hyperkalemia; C61 Malignant neoplasm of prostate; C79.9 Secondary malignant neoplasm of unspecified site; E11.40 Type 2 diabetes mellitus with diabetic neuropathy, unspecified; I10 Essential (primary) hypertension; E66.9 Obesity, unspecified; J44.9 Chronic obstructive pulmonary disease, unspecified; Z96.0 Presence of urogenital implants; Z79.891 Long term (current) use of opiate analgesic; Z79.4 Long term (current) use of insulin; Z79.84 Long term (current) use of oral hypoglycemic drugs; Z79.899 Other long term (current) drug therapy
CPT/HCPCS: 36415; 51702; 70450; 71045; 73130; 80053; 80306; 81000; 85025; 93005; 93041

== ENCOUNTER 2021-11-09 01:46 | Emergency (ER) | payer MEDICAID ==
[~2021-11-09] VITALS: Ht 175.2 cm; Wt 88.4 kg
[2021-11-09 01:50] VITALS: BP 168/80
[2021-11-09 02:18] LABS: BILIRUBIN,URINE NEGATIVE (NEGATIVE); CLARITY,URINE CLEAR; COLOR,URINE YELLOW; GLUCOSE, URINE (UA) NEGATIVE (NEGATIVE); KETONES,URINE NEGATIVE (NEGATIVE); LEUKOCYTE ESTERASE ,URINE 2+ (NEGATIVE); NITRITE,URINE POSITIVE (NEGATIVE); PH,URINE 6.5 (5-9); PROTEIN,URINE 1+ (NEGATIVE)
--- NOTE | 2021-11-09 02:18 | ED GU-Female ---
General Chief Complaint: - Reproductive Stated Complaint: SWOLLEN SCROTUM Nursing Triage Note: Pt c/o pain and swelling to scrotum and penis since yesterday. Pt has urinary cath inplace due to prostate CA. Reports he felt it pull when he was sitting in his wheelchair. Pt denies fever, CP, SOA, or cough. Source: patient Exam Limitations: no limitations History of Present Illness Date Seen by Provider: Nov 09, 2021 Time Seen by Provider: 01:49 Initial Comments 61-year-old man with past medical history of metastatic prostate cancer with reportedly metastases to the spine with "less than 2 months to live" per the group home, DM, NEUROPATHY, Anxiety, Depression, COPD, Anemia, previous Methamphetamine abuse coming in via EMS from [facility] due to scrotal swelling. The patient states that he has had a Perkins in place for many months, and had a recent hospital admission a couple months ago in which he got severely deconditioned. He says he essentially went from walking 3 months ago to being unable to walk currently. He says they set him up at the group home today into a wheelchair and he had a lot of pressure on his genitals for couple hours. He says this was uncomfortable for him, and afterwards he noticed the swelling in his scrotum. He had the same nurse last night compared to meagan, and this does seem to be a change for them. He says there is some mild constant throbbing pain in his scrotum. Nothing seems to really make it better or worse. He is on chronic opioids. He did have an overdose about a month ago for which the changed his regimen. He is otherwise denying any chest pain, shortness of breath, abdominal pain, nausea, vomiting, diarrhea, fever, chills, focal weakness or numbness, or any other concerns. Allergies and Home Medications Allergies Coded Allergies: hydrocodone (Unverified Allergy, Unknown, hives, 02/08/19) aspirin (Unverified Adverse Reaction, Unknown, angioedema, 02/08/19) lisinopril (Unverified Adverse Reaction, Unknown, angioedema, 02/08/19) Patient Home Medication List Home Medication List Reviewed: Yes Azithromycin (Zithromax) 500 Mg Tablet, 500 MG PO DAILY Prescribed by: LANCE MARTINI on 07/06/19 0416 Cefdinir (Cefdinir) 300 Mg Capsule, 300 MG PO BID Prescribed by: LANCE MARTINI on 07/06/19 041 Cefdinir (Cefdinir) 300 Mg Capsule, 300 MG PO BID Prescribed by: IDA AMIN on 11/09/21 0248 Dicyclomine HCl (Dicyclomine HCl) 20 Mg Tablet, 20 MG PO Q6H Prescribed by: LANCE MARTINI on 07/06/19 041 Hyoscyamine Sulfate (Levsin-Sl) 0.125 Mg Tab.subl, 1-2 TAB SL Q4H Prescribed by: LANCE MARTINI on 07/06/19415 Insulin Lispro (Humalog Kwikpen) 100 Unit/1 Ml Insuln.pen, 15 UNITS SC TIDWM, (Reported) Entered as Reported by: MARS BAZZI on 06/26/19 132 Metformin HCl (Metformin HCl) 1,000 Mg Tablet, 1,000 MG PO BID, (Reported) Entered as Reported by: MARS BAZZI on 06/26/19 132 Omeprazole (Omeprazole) 40 Mg Capsule.dr, 40 MG PO DAILY, (Reported) Entered as Reported by: MARS BAZZI on 06/26/19 132 Tramadol HCl (Tramadol HCl) 50 Mg Tablet, 50 MG PO PRN, (Reported) Entered as Reported by: BENNETT JOHNSTON on 07/06/19 0235 Review of Systems Review of Systems Constitutional: No chills, No fever EENTM: No blurred vision Respiratory: No cough Cardiovascular: No chest pain Gastrointestinal: No abdominal pain Genitourinary: other (Scrotal and penis edema) Musculoskeletal: no symptoms reported Skin: no symptoms reported Psychiatric/Neurological: No Symptoms Reported Endocrine: No Symptoms Reported Hematologic/Lymphatic: No Symptoms Reported All Other Systemes Reviewed Negative Unless Noted: Yes Past Kdesxdj-Sfqwlk-Ifqbax Hx Patient Social History Tobacco Use?: No Use of E-Cig and/or Vaping dev: No Substance use?: No Alcohol Use?: No Pt feels they are or have been: No Immunizations Up To Date Influenza Vaccine Up-to-Date: Yes; Up-to-Date First/Initial COVID19 Vaccinat: unknown Past Medical History Surgery/Hospitalization HX: PMH: DM, NEUROPATHY. 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) Reproductive Disorders: No Genitourinary: No Gastrointestinal: Yes (CHRONIC GI COMPLAINTS) Musculoskeletal: Yes (CHRONIC GENERALIZED PAIN COMPLAINTS, ESPECIALLY TO LEGS AND FEET AND BACK) Chronic Back Pain Endocrine: Yes (OBESE; EXTERME NON-COMPLIANCE IN ALL ASPECTS OF CARE) Diabetes, Insulin dep HEENT: No Cancer: No Psychosocial: No Integumentary: No Blood Disorders: No Family Medical History No Pertinent Family Hx PT HAS BEEN RELEASED FROM GROUP HOME EARLIER IN 2019 PT WITH EXTREME NON-COMPLIANCE IN ALL ASPECTS OF CARE PT HAS FREQUENTLY LEFT WITHOUT BEING SEEN OR LEFT AMA LONG HISTORY OF DRUG SEEKING BEHAVIOR Physical Exam Vital Signs Vital Signs - First Documented 11/09/21 01:50 Temp 36.6 Pulse 88 Resp 17 B/P (MAP) 168/80 (109) Pulse Ox 94 O2 Delivery Room Air Capillary Refill : Less Than 3 Seconds Height, Weight, BMI Height: 5'9.00" Weight: 251lbs. 0oz. 113.911616yg; 28.00 BMI Method:Actual General Appearance: WD/WN, no apparent distress HEENT: PERRL/EOMI, normal ENT inspection, pharynx normal Neck: non-tender, full range of motion, supple, normal inspection Cardiovascular: regular rate, rhythm, no murmur, other (Lower extremity edema that is equal on both sides) Respiratory: chest non-tender, lungs clear, normal breath sounds, no respiratory distress, no accessory muscle use Gastrointestinal: normal bowel sounds, non tender, soft; No distended, No guarding, No rebound Genital/Rectal: other (Perkins catheter in place, bilateral scrotal edema which also surrounds his penis) Back: normal inspection, no CVA tenderness, no vertebral tenderness Extremities: normal range of motion, non-tender, normal inspection, no calf tenderness, normal capillary refill, pedal edema Neurologic/Psychiatric: no motor/sensory deficits, alert, normal mood/affect, oriented x 3 Skin: normal color, warm/dry Lymphatic: no adenopathy Progress/Results/Core Measures Suspected Sepsis SIRS Temperature: Pulse: 88 Respiratory Rate: 17 Laboratory Tests 11/09/21 02:05: White Blood Count 6.3 Blood Pressure 168 /80 Mean: 109 Laboratory Tests 11/09/21 02:05: Creatinine 0.79, INR Comment 1.1, Platelet Count 293, Total Bilirubin 0.2 Results/Orders Lab Results Laboratory Tests Test 11/09/21 02:00 11/09/21 02:05 Range/Units Urine Color YELLOW Urine Clarity CLEAR Urine pH 6.5 5-9 Urine Specific [place] 1.010 L 1.016-1.022 Urine Protein 1+ H NEGATIVE Urine Glucose (UA) NEGATIVE NEGATIVE Urine Ketones NEGATIVE NEGATIVE Urine Nitrite POSITIVE H NEGATIVE Urine Bilirubin NEGATIVE NEGATIVE Urine Urobilinogen 0.2 < = 1.0 MG/DL Urine Leukocyte Esterase 2+ H NEGATIVE Urine RBC (Auto) 1+ H NEGATIVE Urine RBC 2-5 H /HPF Urine WBC 10-25 H /HPF Urine Crystals NONE /LPF Urine Bacteria LARGE H /HPF Urine Casts NONE /LPF Urine Mucus NEGATIVE /LPF Urine Culture Indicated YES White Blood Count 6.3 4.3-11.0 10^3/uL Red Blood Count 3.39 L 4.30-5.52 10^6/uL Hemoglobin 9.2 L 13.3-17.7 g/dL Hematocrit 30 L 40-54 % Mean Corpuscular Volume 88 80-99 fL Mean Corpuscular Hemoglobin 27 25-34 pg Mean Corpuscular Hemoglobin Concent 31 L 32-36 g/dL Red Cell Distribution Width 17.3 H 10.0-14.5 % Platelet Count 293 130-400 10^3/uL Mean Platelet Volume 9.6 9.0-12.2 fL Immature Granulocyte % (Auto) 1 % Neutrophils (%) (Auto) 75 42-75 % Lymphocytes (%) (Auto) 14 12-44 % Monocytes (%) (Auto) 5 0-12 % Eosinophils (%) (Auto) 4 0-10 % Basophils (%) (Auto) 1 0-10 % Neutrophils # (Auto) 4.8 1.8-7.8 10^3/uL Lymphocytes # (Auto) 0.9 L 1.0-4.0 10^3/uL Monocytes # (Auto) 0.3 0.0-1.0 10^3/uL Eosinophils # (Auto) 0.3 0.0-0.3 10^3/uL Basophils # (Auto) 0.1 0.0-0.1 10^3/uL Immature Granulocyte # (Auto) 0.1 0.0-0.1 10^3/uL Prothrombin Time 14.2 12.2-14.7 SEC INR Comment 1.1 0.8-1.4 Activated Partial Thromboplast Time 35 24-35 SEC Sodium Level 136 135-145 MMOL/L Potassium Level 4.5 3.6-5.0 MMOL/L Chloride Level 102 98-107 MMOL/L Carbon Dioxide Level 23 21-32 MMOL/L Anion Gap 11 5-14 MMOL/L Blood Urea Nitrogen 14 7-18 MG/DL Creatinine 0.79 0.60-1.30 MG/DL Estimat Glomerular Filtration Rate 100 BUN/Creatinine Ratio 18 Glucose Level 187 H 70-105 MG/DL Calcium Level 8.6 8.5-10.1 MG/DL Corrected Calcium 9.4 8.5-10.1 MG/DL Magnesium Level 1.9 1.6-2.4 MG/DL Total Bilirubin 0.2 0.1-1.0 MG/DL Aspartate Amino Transf (AST/SGOT) 17 5-34 U/L Alanine Aminotransferase (ALT/SGPT) 7 0-55 U/L Alkaline Phosphatase 757 H 40-136 U/L Troponin I < 0.30 <0.30 NG/ML Pro-B-Type Natriuretic Peptide 4648.0 H <75.0 PG/ML Total Protein 7.1 6.4-8.2 GM/DL Albumin 3.0 L 3.2-4.5 GM/DL My Orders Orders - IDA AMIN MD Cbc With Automated Diff (11/09/21 02:01) Comprehensive Metabolic Panel (11/09/21 02:01) Magnesium (11/09/21 02:01) Protime With Inr (11/09/21 02:01) Partial Thromboplastin Time (11/09/21 02:01) Probnp Fs (11/09/21 02:01) Troponin I Fs (11/09/21 02:01) Ua Culture If Indicated (11/09/21 02:01) Urine Culture (11/09/21 02:00) Ceftriaxone 1 Gm Pre-Mix (Rocephin 1 Gm (11/09/21 03:00) Acetaminophen Tablet (Tylenol Tablet) (11/09/21 03:00) Furosemide Injection (Lasix Injection) (11/09/21 03:00) Medications Given in ED Current Medications Medications Dose Ordered Sig/Zack Route Start Time Stop Time Status Last Admin Dose Admin Acetaminophen 1,000 mg ONCE ONCE PO 11/09/21 03:00 11/09/21 03:01 11/09/21 02:55 1,000 MG Ceftriaxone Sodium/Dextrose 50 ml @ 100 mls/hr ONCE ONCE IV 11/09/21 03:00 11/09/21 03:29 11/09/21 02:54 100 MLS/HR Vital Signs/I&O 11/09/21 01:50 Temp 36.6 Pulse 88 Resp 17 B/P (MAP) 168/80 (109) Pulse Ox 94 O2 Delivery Room Air Capillary Refill : Less Than 3 Seconds Blood Pressure Mean: 109 Progress Note : Progress Note 61-year-old male with above history coming in due to scrotal swelling. I did review the patient's chart, and he does seem to have quite a few visits where he has been labeled as drug-seeking and has been verbally aggressive to staff. We were told and EMS report that he received an oxycodone just prior to arrival. The patient is asking for more pain medication immediately upon arrival, and he appears comfortable and resting. ABCs were intact and vitals were stable on presentation. Physical exam with some uniform scrotal swelling and lower extremity edema which both appear more dependent in nature. An IV was placed and basic labs were obtained to assess for signs of heart failure versus renal failure as a cause for the extra fluid. His kidney function has returned to normal since his most recent visit and he is having a good amount of urine output from his Perkins catheter. His BNP is around 4000 which could be a cause for the lower extremity edema. He appears to be Lasix cong so gave him 20 mg of IV Lasix. He will need to discuss with his primary doctor if he needs to be on this long-term. He does appear to have a urinary tract infection which we will treat with IV ceftriaxone and switch over to oral medication afterwards is group home. His testicles themselves are not tender and I have no significant concern for torsion at this time. I did a [id number] ultrasound as well with bilateral blood flow to his testes. I will recommend elevating the scrotum, ice packs, and just time in general for the swelling to go down. I believe the patient is stable for discharge with outpatient follow-up. He was sent home with strict return precautions. Departure Impression Primary Impression: UTI (urinary tract infection) Qualified Codes: N39.0 - Urinary tract infection, site not specified Additional Impression: Scrotal edema Disposition: 01 HOME, SELF-CARE Condition: Stable Departure-Patient Inst. Decision time for Depature: 03:00 Referrals: ARNOLDO PALACIOS MD (PCP/Family) Primary Care Physician Patient Instructions: Urinary Tract Infection, Adult (DC) Add. Discharge Instructions: You do have a urinary tract infection which we started you on IV medication 1 time and you will continue with an oral medicine for the next week. The scrotal swelling is likely dependent in nature meaning it comes from gravity and how you are sitting. Your kidney function is now normal so it does not appear to be volume overload from the kidneys. Your proBNP is around 4000 which means some of the swelling in your legs and scrotum could be coming from your heart. We gave you a "water pill" called lasix in your IV to help you urinate off some of the extra fluid. If it gets worse then talk to your doctor about starting lasix every day. I recommend having your scrotum elevated with a towel, you can apply ice packs to it, and it will slowly go down the time. If it continues you can follow-up with your regular doctor. Scripts Cefdinir (Cefdinir) 300 Mg Capsule 300 MG PO BID for 7 Days, #14 CAP 0 Refills Prov: IDA AMIN MD 11/09/21 IDA AMIN MD Nov 09, 2021 02:18
[2021-11-09 02:20] LABS: BASOPHILS # (AUTO) 0.1 10^3/uL (0.0-0.1); BASOPHILS % (AUTO) 1 % (0-10); EOSINOPHILS # (AUTO) 0.3 10^3/uL (0.0-0.3); EOSINOPHILS % (AUTO) 4 % (0-10); HEMATOCRIT 30 % (40-54); HEMOGLOBIN 9.2 g/dL (13.3-17.7); LYMPHOCYTES # (AUTO) 0.9 10^3/uL (1.0-4.0); LYMPHOCYTES % (AUTO) 14 % (12-44); MEAN CORPUSCULAR HEMOGLOBIN 27 pg (25-34); MEAN CORPUSCULAR HGB CONC 31 g/dL (32-36); MEAN CORPUSCULAR VOLUME 88 fL (80-99); MEAN PLATELET VOLUME 9.6 fL (9.0-12.2); MONOCYTES # (AUTO) 0.3 10^3/uL (0.0-1.0); MONOCYTES % (AUTO) 5 % (0-12); NEUTROPHILS # (AUTO) 4.8 10^3/uL (1.8-7.8); NEUTROPHILS % (AUTO) 75 % (42-75); PLATELET COUNT 293 10^3/uL (130-400); WHITE BLOOD COUNT 6.3 10^3/uL (4.3-11.0)
[2021-11-09 02:22] LABS: BACTERIA,URINE LARGE /HPF
[2021-11-09 02:26] LABS: INR 1.1 (0.8-1.4); PROTHROMBIN TIME PATIENT 14.2 SEC (12.2-14.7)
[2021-11-09 02:38] LABS: ALANINE AMINOTRANSFERASE 7 U/L (0-55); ALKALINE PHOSPHATASE 757 U/L (40-136); BILIRUBIN,TOTAL 0.2 MG/DL (0.1-1.0); BUN/CREATININE RATIO 18; CALCIUM 8.6 MG/DL (8.5-10.1); CARBON DIOXIDE 23 MMOL/L (21-32); CHLORIDE 102 MMOL/L (98-107); CREATININE SERUM 0.79 MG/DL (0.60-1.30); GFR ESTIMATED 100; GLUCOSE 187 MG/DL (70-105); MAGNESIUM 1.9 MG/DL (1.6-2.4); POTASSIUM 4.5 MMOL/L (3.6-5.0); SODIUM 136 MMOL/L (135-145); TOTAL PROTEIN 7.1 GM/DL (6.4-8.2)
[2021-11-09] MEDS ORDERED: CEFD300C3 PO ×2 (02:48→03:02)
[2021-11-09] MEDS ORDERED: cefTRIAXone 1 GM PRE-MIX 50 ML IV ONE (03:00)
[2021-11-09] MEDS ORDERED: FUROSEMIDE 40 MG/4 ML INJ (LASIX) IVP ONE (03:00)
[2021-11-09] MEDS ORDERED: ACETAMINOPHEN 500 MG TAB (TYLENOL) PO ONE (03:00)
== END 2021-11-09 03:28 | disposition home or self-care (01) ==
LOC: EDUNIT# 01:46 → ER FS 01:50
DX: C79.49 Secondary malignant neoplasm of other parts of nervous system (principal); N39.0 Urinary tract infection, site not specified; N50.89 Other specified disorders of the male genital organs
CPT/HCPCS: 36415; 80053; 81000; 83735; 83880; 84484; 85025; 85610; 85730; 87077; 87088; 87186

== ENCOUNTER 2021-11-22 09:59 | Emergency (ER) | payer MEDICAID ==
[~2021-11-22] VITALS: Ht 170 cm; Wt 100.0 kg
--- NOTE | 2021-11-22 10:35 | ED GU-Male ---
General Chief Complaint: - Reproductive Stated Complaint: CATHETER PROBLEMS Source: patient, EMS Exam Limitations: no limitations History of Present Illness Date Seen by Provider: Nov 22, 2021 Time Seen by Provider: 10:01 Initial Comments 61yoM with PMH of metastatic prostate cancer, DM, neuropathy, anxiety, depression, COPD, anemia, previous methamphetamine use coming in via EMS from his [facility]dc due to continued scrotal swelling. He was seen in this ER on 11/09/21 for the same. He has had a leong in place for months since the diagnosis of prostate cancer. During his recent ER visit his kidney and liver function appeared normal and he was making urine which was coming out of the leong. His pro-BNP was ~4000. He had some lower extremity swelling as well and was given IV lasix. He had a UTI as well and was sent home with antibiotics. He was told to follow up with his PCP in regards to potentially starting lasix. He saw Dr. Calvert yesterday and started lasix 20mg at that time. He has had one dose. The swelling has not gone away as of yet, so his relative wanted him to be checked out to be sure he isn't about to be "septic". He denies any chest pain, shortness of breath, abdominal pain, nausea, vomiting, diarrhea, fever, chills, new focal weakness, numbness, headache, vision changes, rash, or any other concerns. He says he has pressure-like pain around where the Leong is, but denies any other issues. He thinks he is here to make sure the Leong is still working correctly. Allergies and Home Medications Allergies Coded Allergies: hydrocodone (Unverified Allergy, Unknown, hives, 02/08/19) aspirin (Unverified Adverse Reaction, Unknown, angioedema, 02/08/19) lisinopril (Unverified Adverse Reaction, Unknown, angioedema, 02/08/19) Patient Home Medication List Home Medication List Reviewed: Yes Azithromycin (Zithromax) 500 Mg Tablet, 500 MG PO DAILY Prescribed by: LANCE MARTINI on 07/06/19415 Cefdinir (Cefdinir) 300 Mg Capsule, 300 MG PO BID Prescribed by: LANCE MARTINI on 07/06/19415 Cefdinir (Cefdinir) 300 Mg Capsule, 300 MG PO BID Prescribed by: IDA AMIN on 11/09/21 0302 Dicyclomine HCl (Dicyclomine HCl) 20 Mg Tablet, 20 MG PO Q6H Prescribed by: LANCE MARTINI on 07/06/19 041 Hyoscyamine Sulfate (Levsin-Sl) 0.125 Mg Tab.subl, 1-2 TAB SL Q4H Prescribed by: LANCE MARTINI on 07/06/19 041 Insulin Lispro (Humalog Kwikpen) 100 Unit/1 Ml Insuln.pen, 15 UNITS SC TIDWM, (Reported) Entered as Reported by: MARS BAZZI on 06/26/19 1327 Metformin HCl (Metformin HCl) 1,000 Mg Tablet, 1,000 MG PO BID, (Reported) Entered as Reported by: MARS BAZZI on 06/26/19 1327 Omeprazole (Omeprazole) 40 Mg Capsule.dr, 40 MG PO DAILY, (Reported) Entered as Reported by: MARS BAZZI on 06/26/19 1328 Potassium Chloride (Potassium Chloride) 20 Meq Tablet.er, 20 MEQ PO DAILY Prescribed by: IDA AMIN on 11/22/21 1135 Sulfamethoxazole/Trimethoprim (Bactrim Ds Tablet) 1 Each Tablet, 1 EACH PO BID Prescribed by: IDA AMIN on 11/22/21 1135 Tramadol HCl (Tramadol HCl) 50 Mg Tablet, 50 MG PO PRN, (Reported) Entered as Reported by: BENNETT JOHNSTON on 07/06/19 0235 Review of Systems Review of Systems Constitutional: No chills, No fever EENTM: No blurred vision Respiratory: No cough, No short of breath Cardiovascular: No chest pain Gastrointestinal: No abdominal pain, No diarrhea, No nausea, No vomiting Genitourinary: other (Leong in place) Musculoskeletal: no symptoms reported Skin: no symptoms reported Psychiatric/Neurological: No Symptoms Reported Endocrine: No Symptoms Reported Hematologic/Lymphatic: No Symptoms Reported All Other Systemes Reviewed Negative Unless Noted: Yes Past Hpjxqku-Qvwvwp-Wwxfcr Hx Patient Social History Alcohol Use?: No Immunizations Up To Date First/Initial COVID19 Vaccinat: unknown Past Medical History Surgery/Hospitalization HX: PMH: DM, NEUROPATHY. 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) Reproductive Disorders: No Genitourinary: No Gastrointestinal: Yes (CHRONIC GI COMPLAINTS) Musculoskeletal: Yes (CHRONIC GENERALIZED PAIN COMPLAINTS, ESPECIALLY TO LEGS AND FEET AND BACK) Chronic Back Pain Endocrine: Yes (OBESE; EXTERME NON-COMPLIANCE IN ALL ASPECTS OF CARE) Diabetes, Insulin dep HEENT: No Cancer: No Psychosocial: No Integumentary: No Blood Disorders: No Family Medical History No Pertinent Family Hx PT HAS BEEN RELEASED FROM [facility] IN 2019 PT WITH EXTREME NON-COMPLIANCE IN ALL ASPECTS OF CARE PT HAS FREQUENTLY LEFT WITHOUT BEING SEEN OR LEFT AMA LONG HISTORY OF DRUG SEEKING BEHAVIOR Physical Exam Vital Signs Vital Signs - First Documented 11/22/21 10:41 Temp 36.4 Pulse 87 Resp 16 B/P (MAP) 151/71 (97) Pulse Ox 100 Capillary Refill : Height, Weight, BMI Height: 5'9.00" Weight: 251lbs. 0oz. 113.503116yx; 28.00 BMI Method:Actual General Appearance: WD/WN, no apparent distress HEENT: PERRL/EOMI, normal ENT inspection, pharynx normal Neck: non-tender, full range of motion, supple, normal inspection Cardiovascular: regular rate, rhythm, no edema, no murmur Respiratory: chest non-tender, lungs clear, normal breath sounds, no respiratory distress, no accessory muscle use Gastrointestinal: normal bowel sounds, non tender, soft; No distended, No guarding, No rebound Male: no hernia; No testicular tenderness; other (Scrotal edema) Back: normal inspection, no CVA tenderness, no vertebral tenderness Extremities: normal range of motion, non-tender, normal inspection, no calf t enderness, normal capillary refill, pedal edema Neurologic/Psychiatric: no motor/sensory deficits, alert, normal mood/affect, oriented x 3 Skin: normal color, warm/dry Lymphatic: no adenopathy Progress/Results/Core Measures Suspected Sepsis SIRS Temperature: Pulse: Respiratory Rate: Laboratory Tests 11/22/21 10:45: White Blood Count 7.3 Blood Pressure / Mean: Laboratory Tests 11/22/21 10:45: Creatinine 1.03, Platelet Count 347, Total Bilirubin 0.2 Results/Orders Lab Results Laboratory Tests Test 11/22/21 10:44 11/22/21 10:45 Range/Units Urine Color YELLOW Urine Clarity CLEAR Urine pH 7.0 5-9 Urine Specific [place] 1.010 L 1.016-1.022 Urine Protein 1+ H NEGATIVE Urine Glucose (UA) NEGATIVE NEGATIVE Urine Ketones NEGATIVE NEGATIVE Urine Nitrite POSITIVE H NEGATIVE Urine Bilirubin NEGATIVE NEGATIVE Urine Urobilinogen 0.2 < = 1.0 MG/DL Urine Leukocyte Esterase 2+ H NEGATIVE Urine RBC (Auto) 2+ H NEGATIVE Urine RBC NONE /HPF Urine WBC 10-25 H /HPF Urine Crystals NONE /LPF Urine Bacteria LARGE H /HPF Urine Casts NONE /LPF Urine Mucus NEGATIVE /LPF Urine Culture Indicated YES White Blood Count 7.3 4.3-11.0 10^3/uL Red Blood Count 2.44 L 4.30-5.52 10^6/uL Hemoglobin 6.6 *L 13.3-17.7 g/dL Hematocrit 22 L 40-54 % Mean Corpuscular Volume 89 80-99 fL Mean Corpuscular Hemoglobin 27 25-34 pg Mean Corpuscular Hemoglobin Concent 30 L 32-36 g/dL Red Cell Distribution Width 17.7 H 10.0-14.5 % Platelet Count 347 130-400 10^3/uL Mean Platelet Volume 8.9 L 9.0-12.2 fL Immature Granulocyte % (Auto) 2 % Neutrophils (%) (Auto) 74 42-75 % Lymphocytes (%) (Auto) 14 12-44 % Monocytes (%) (Auto) 6 0-12 % Eosinophils (%) (Auto) 3 0-10 % Basophils (%) (Auto) 1 0-10 % Neutrophils # (Auto) 5.4 1.8-7.8 10^3/uL Lymphocytes # (Auto) 1.0 1.0-4.0 10^3/uL Monocytes # (Auto) 0.4 0.0-1.0 10^3/uL Eosinophils # (Auto) 0.3 0.0-0.3 10^3/uL Basophils # (Auto) 0.1 0.0-0.1 10^3/uL Immature Granulocyte # (Auto) 0.2 H 0.0-0.1 10^3/uL Sodium Level 136 135-145 MMOL/L Potassium Level 4.8 3.6-5.0 MMOL/L Chloride Level 101 98-107 MMOL/L Carbon Dioxide Level 24 21-32 MMOL/L Anion Gap 11 5-14 MMOL/L Blood Urea Nitrogen 17 7-18 MG/DL Creatinine 1.03 0.60-1.30 MG/DL Estimat Glomerular Filtration Rate 82 BUN/Creatinine Ratio 17 Glucose Level 201 H 70-105 MG/DL Calcium Level 8.6 8.5-10.1 MG/DL Corrected Calcium 9.4 8.5-10.1 MG/DL Total Bilirubin 0.2 0.1-1.0 MG/DL Aspartate Amino Transf (AST/SGOT) 12 5-34 U/L Alanine Aminotransferase (ALT/SGPT) 5 0-55 U/L Alkaline Phosphatase 739 H 40-136 U/L B-Type Natriuretic Peptide 4373.0 H <100.0 PG/ML Total Protein 6.8 6.4-8.2 GM/DL Albumin 3.0 L 3.2-4.5 GM/DL My Orders Orders - IDA AMIN MD Bnp Alexandru (11/22/21 10:17) Cbc With Automated Diff (11/22/21 10:17) Comprehensive Metabolic Panel (11/22/21 10:17) Ua Culture If Indicated (11/22/21 10:17) Urine Culture (11/22/21 10:44) Sulfamethoxazole/Trimet Ds Tab (Bactrim (11/22/21 11:06) Vital Signs/I&O 11/22/21 11/22/21 10:41 10:53 Temp 36.4 36.4 Pulse 87 87 Resp 16 16 B/P (MAP) 151/71 (97) 151/71 (97) Pulse Ox 100 100 Capillary Refill : Progress Note : Progress Note 61yoM with above history coming in due to scrotal swelling. ABCs were intact and vitals were stable on presentation. Physical exam with the above-mentioned findings. This is the exact presentation I in fact saw the patient for around 12 days ago. At that time I discussed the need to follow-up with his regular doctor to start Lasix. He just had follow-up yesterday and has had 1 dose of Lasix. I would not expect the edema to completely resolve in that time. I discussed this with the patient. We obtained basic labs again to assess his kidney function, liver function, and BMP again to see if there have been any changes in the interim. Vitals otherwise are unremarkable and he does not appear septic. Departure Impression Primary Impression: Scrotal edema Additional Impressions: UTI (urinary tract infection) Qualified Codes: N30.00 - Acute cystitis without hematuria Anemia Qualified Codes: D64.9 - Anemia, unspecified Disposition: HOME, SELF-CARE Condition: Stable Departure-Patient Inst. Decision time for Depature: 11:50 Referrals: ARNOLDO PALACIOS MD (PCP) Primary Care Physician Patient Instructions: Urinary Tract Infection, Adult ED Add. Discharge Instructions: Your urine is infected, we will start you on an antibiotic for the next 10 days that the bacteria you previously grew out is sensitive to. Your Leong will need to be changed out every 3 to 4 weeks by the fdc you are staying at. You can also have a urologist to this if they are having difficulty. The Lasix is what will help with the swelling. You need to be taking a potassium supplement when you take lasix. A prescription was sent for this for you to start. If you stop taking the lasix then you can stop the potassium. Your kidney function is normal today. You are also anemic and your hemoglobin is 6.7. We registered you for a blood transfusion at [facility] in [place] on Wednesday. Call [phone] first thing on Wednesday to get it scheduled for you to go and get the transfusion later that day. If you have issues with this, then call Dr. Calvert's office to help facilitate a transfusion. Scripts Potassium Chloride (Potassium Chloride) 20 Meq Tablet.er 20 MEQ PO DAILY for 90 Days, #90 TAB Only take on days that you take Lasix (furosemide) Prov: IDA AMIN MD 11/22/21 Sulfamethoxazole/Trimethoprim (Bactrim Ds Tablet) 1 Each Tablet 1 EACH PO BID for 10 Days, #20 TAB Prov: IDA AMIN MD 11/22/21 IDA AMIN MD Nov 22, 2021 10:35
[2021-11-22 10:48] LABS: BASOPHILS # (AUTO) 0.1 10^3/uL (0.0-0.1); BASOPHILS % (AUTO) 1 % (0-10); EOSINOPHILS # (AUTO) 0.3 10^3/uL (0.0-0.3); EOSINOPHILS % (AUTO) 3 % (0-10); HEMATOCRIT 22 % (40-54); LYMPHOCYTES % (AUTO) 14 % (12-44); MEAN CORPUSCULAR HEMOGLOBIN 27 pg (25-34); MEAN CORPUSCULAR HGB CONC 30 g/dL (32-36); MEAN CORPUSCULAR VOLUME 89 fL (80-99); MEAN PLATELET VOLUME 8.9 fL (9.0-12.2); MONOCYTES # (AUTO) 0.4 10^3/uL (0.0-1.0); MONOCYTES % (AUTO) 6 % (0-12); NEUTROPHILS # (AUTO) 5.4 10^3/uL (1.8-7.8); NEUTROPHILS % (AUTO) 74 % (42-75); PLATELET COUNT 347 10^3/uL (130-400); WHITE BLOOD COUNT 7.3 10^3/uL (4.3-11.0)
[2021-11-22 10:51] LABS: BILIRUBIN,URINE NEGATIVE (NEGATIVE); CLARITY,URINE CLEAR; COLOR,URINE YELLOW; GLUCOSE, URINE (UA) NEGATIVE (NEGATIVE); KETONES,URINE NEGATIVE (NEGATIVE); LEUKOCYTE ESTERASE ,URINE 2+ (NEGATIVE); NITRITE,URINE POSITIVE (NEGATIVE); PROTEIN,URINE 1+ (NEGATIVE)
[2021-11-22 10:52] LABS: HEMOGLOBIN 6.6 g/dL (13.3-17.7)
[2021-11-22 10:53] VITALS: BP 151/71
[2021-11-22 10:54] LABS: BACTERIA,URINE LARGE /HPF
[2021-11-22] MEDS ORDERED: TRIM/SULFAMETH 160/800 (SEPTRA DS) TAB PO STA (11:06)
[2021-11-22 11:11] LABS: BILIRUBIN,TOTAL 0.2 MG/DL (0.1-1.0); CALCIUM 8.6 MG/DL (8.5-10.1); CREATININE SERUM 1.03 MG/DL (0.60-1.30); POTASSIUM 4.8 MMOL/L (3.6-5.0); TOTAL PROTEIN 6.8 GM/DL (6.4-8.2)
[2021-11-22] MEDS ORDERED: POTA-51 PO (11:35)
[2021-11-22] MEDS ORDERED: SULF1TAB38 PO (11:35)
[2021-11-22] MEDS ORDERED: FUROSEMIDE 20 MG (LASIX) TAB PO ONE (12:00)
== END 2021-11-22 12:15 | disposition home or self-care (01) ==
LOC: EDUNIT# 09:59 → ER FS 10:00
DX: C61 Malignant neoplasm of prostate (principal); N50.89 Other specified disorders of the male genital organs; N39.0 Urinary tract infection, site not specified; D64.9 Anemia, unspecified
CPT/HCPCS: 36415; 80053; 81000; 83880; 85025; 87077; 87088; 99283

== ENCOUNTER 2021-12-04 08:33 | Outpatient (CLI) | payer MEDICAID ==
[~2021-12-04 08:33] MED LIST changes: +POTA-51 PO; +SULF1TAB38 PO
[2021-12-04 10:00] VITALS: BP 160/91
[2021-12-05] MEDS ORDERED: [UNRECOGNIZED DRUG - CODE] MC (15:28)
== END 2021-12-04 10:15 ==
LOC: SDC 08:33
PROVIDERS: ATTEND Emergency Medicine
DX: D64.9 Anemia, unspecified (principal)
CPT/HCPCS: 36415; 85014; 85018; 86850; 86900; 86901

== ENCOUNTER → 2022-05-14 | Outpatient (CLI) | payer MEDICAID ==
[~2022-05-14] MED LIST changes: +[UNRECOGNIZED DRUG - CODE] MC
--- NOTE | 2022-05-14 09:31 | Diagnostic Imaging Report ---
PROCEDURE: CT head without contrast. TECHNIQUE: Multiple contiguous axial images were obtained through the brain without the use of intravenous contrast. Auto Exposure Controls were utilized during the CT exam to meet ALARA standards for radiation dose reduction. DATE: May 14, 2022. COMPARISON: CT head October 10, 2021. INDICATION: 61-year-old male, altered mental status. History of prostate cancer. FINDINGS: The ventricles and cerebral spinal fluid spaces are of normal size and configuration for the patient's age. There is no mass effect or midline shift. There is no acute intracranial hemorrhage. There is no abnormal extra-axial fluid collection. The visualized portions of the paranasal sinuses, mastoid air cells and middle ears are well aerated. IMPRESSION: 1. No identified acute intracranial abnormality. Dictated by: Dictated on workstation # [id number]
== END ==
LOC: RAD 07:37
PROVIDERS: ATTEND Family Medicine
DX: R41.82 Altered mental status, unspecified (principal); Z85.46 Personal history of malignant neoplasm of prostate
CPT/HCPCS: 70450

== ENCOUNTER 2022-06-04 21:16 | Inpatient (IN) | payer MEDICAID ==
[~2022-06-04] VITALS: Ht 182.8 cm; Wt 102.0 kg
[2022-06-04] MEDS ORDERED: NS IV 1000 ML 1,000 ML IV STA (21:26)
--- NOTE | 2022-06-04 21:31 | ED General ---
General Stated Complaint: SOB Source of Information: Patient, EMS, [facility] Records, Old Records Exam Limitations: Other (confusion and slow to answer questions) History of Present Illness Date Seen by Provider: Jun 04, 2022 Time Seen by Provider: 21:18 Initial Comments 61-year-old male presenting with EMS from [place] He had been more confused today and more lethargic. They reported that his oxygen saturation was only 70%. He had felt warm to the touch but no documented fever. On arrival to the ED he is slow to answer questions but was answering appropriately. However he did start pulling at his vital sign cords and clothing. He was following commands and had his eyes open and interacting with staff. He has indwelling suprapubic catheter that has crusting and some drainage from around the insertion site. Urine has a foul odor and is cloudy. Timing/Duration: 1-2 Days Associated Systoms: No Chest Pain, No Cough, No Diaphoresis, No Fever/Chills, No Headaches; Malaise; No Nausea/Vomiting, No Seizure, No Shortness of Air, No Syncope; Weakness Allergies and Home Medications Allergies Coded Allergies: hydrocodone (Unverified Allergy, Unknown, hives, 02/08/19) aspirin (Unverified Adverse Reaction, Unknown, angioedema, 02/08/19) lisinopril (Unverified Adverse Reaction, Unknown, angioedema, 02/08/19) Patient Home Medication List Home Medication List Reviewed: Yes Azithromycin (Zithromax) 500 Mg Tablet, 500 MG PO DAILY Prescribed by: LANCE MARTINI on 07/06/19415 Catheter (Perkins Catheter) 1 Each Each, EACH [facility] q4week, (DME) Prescribed by: FATMATA SMITH on 12/05/21 1528 Cefdinir (Cefdinir) 300 Mg Capsule, 300 MG PO BID Prescribed by: LANCE MARTINI on 07/06/19 041 Cefdinir (Cefdinir) 300 Mg Capsule, 300 MG PO BID Prescribed by: IDA AMIN on 11/09/21 0302 Dicyclomine HCl (Dicyclomine HCl) 20 Mg Tablet, 20 MG PO Q6H Prescribed by: LANCE MARTINI on 07/06/19415 Hyoscyamine Sulfate (Levsin-Sl) 0.125 Mg Tab.subl, 1-2 TAB SL Q4H Prescribed by: LANCE MARTINI on 07/06/19 0416 Insulin Lispro (Humalog Kwikpen) 100 Unit/1 Ml Insuln.pen, 15 UNITS SC TIDWM, (Reported) Entered as Reported by: MARS BAZZI on 06/26/19 1327 Metformin HCl (Metformin HCl) 1,000 Mg Tablet, 1,000 MG PO BID, (Reported) Entered as Reported by: MARS BAZZI on 06/26/19 1327 Omeprazole (Omeprazole) 40 Mg Capsule.dr, 40 MG PO DAILY, (Reported) Entered as Reported by: MARS BAZZI on 06/26/19 1328 Potassium Chloride (Potassium Chloride) 20 Meq Tablet.er, 20 MEQ PO DAILY Prescribed by: IDA AMIN on 11/22/21 1135 Sulfamethoxazole/Trimethoprim (Bactrim Ds Tablet) 1 Each Tablet, 1 EACH PO BID Prescribed by: IDA AMIN on 11/22/21 1135 Tramadol HCl (Tramadol HCl) 50 Mg Tablet, 50 MG PO PRN, (Reported) Entered as Reported by: BENNETT JOHNSTON on 07/06/19 0235 Review of Systems Review of Systems Constitutional: No chills, No fever EENTM: other (dry mucous membranes with white plaques on tongue and oral mucosa) Respiratory: No cough, No phlegm, No short of breath Cardiovascular: No chest pain Gastrointestinal: No nausea, No vomiting Genitourinary: see HPI Musculoskeletal: no symptoms reported Skin: rash (psoriasis patches on arms) Psychiatric/Neurological: Denies Headache Hematologic/Lymphatic: Denies Blood Clots Past Ggkfmuv-Fqitki-Mvbruu Hx Immunizations Up To Date First/Initial COVID19 Vaccinat: unknown Past Medical History Surgery/Hospitalization HX: PMH: DM, NEUROPATHY. 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) Reproductive Disorders: No Genitourinary: No Gastrointestinal: Yes (CHRONIC GI COMPLAINTS) Musculoskeletal: Yes (CHRONIC GENERALIZED PAIN COMPLAINTS, ESPECIALLY TO LEGS AND FEET AND BACK) Chronic Back Pain Endocrine: Yes (OBESE; EXTERME NON-COMPLIANCE IN ALL ASPECTS OF CARE) Diabetes, Insulin dep HEENT: No Cancer: No Psychosocial: No Integumentary: No Blood Disorders: No Family Medical History No Pertinent Family Hx PT HAS BEEN RELEASED FROM [facility] IN 2019 PT WITH EXTREME NON-COMPLIANCE IN ALL ASPECTS OF CARE PT HAS FREQUENTLY LEFT WITHOUT BEING SEEN OR LEFT AMA LONG HISTORY OF DRUG SEEKING BEHAVIOR Physical Exam Vital Signs Vital Signs - First Documented 06/04/22 21:16 Temp 36.3 Pulse 81 Resp 18 B/P (MAP) 139/97 (111) Pulse Ox 98 O2 Delivery Room Air Capillary Refill : Height, Weight, BMI Height: 5'9.00" Weight: 251lbs. 0oz. 113.213181io; 34.00 BMI Method:Actual General Appearance: No Apparent Distress, Chronically ill HEENT: PERRL/EOMI; No Moist Mucous Membranes (dry mucous membranes with white plaques in mouth and oral mucosa) Neck: Non Tender, Supple Respiratory: Chest Non Tender, Lungs Clear, Decreased Breath Sounds Cardiovascular: Regular Rate, Rhythm, Normal Peripheral Pulses Gastrointestinal: Normal Bowel Sounds, No Pulsatile Mass, Non Tender, Soft Extremity: Normal Capillary Refill, Pedal Edema Neurologic/Psychiatric: Alert, Oriented x3 (states his name, age, month, location as 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 Norm as Tested Skin: Warm/Dry Focused Exam Lactate Level 06/04/22 21:23: Lactic Acid Level 1.00 Lactic Acid Level Laboratory Tests Test 06/04/22 21:23 Lactic Acid Level 1.00 MMOL/L (0.50-2.00) Progress/Results/Core Measures Suspected Sepsis SIRS Temperature: Pulse: Respiratory Rate: Laboratory Tests 06/04/22 21:23: White Blood Count 17.0H Blood Pressure / Mean: 06/04/22 21:23: Lactic Acid Level 1.00 Laboratory Tests 06/04/22 21:23: Creatinine 1.18, Platelet Count 285, Total Bilirubin 0.4 Results/Orders Lab Results Laboratory Tests Test 06/04/22 21:17 06/04/22 21:23 06/04/22 21:34 Range/Units Urine Color YELLOW Urine Clarity SL CLOUDY Urine pH 5.5 5-9 Urine Specific [place] 1.025 H 1.016-1.022 Urine Protein 2+ H NEGATIVE Urine Glucose (UA) NEGATIVE NEGATIVE Urine Ketones NEGATIVE NEGATIVE Urine Nitrite POSITIVE H NEGATIVE Urine Bilirubin NEGATIVE NEGATIVE Urine Urobilinogen 0.2 < = 1.0 MG/DL Urine Leukocyte Esterase 1+ H NEGATIVE Urine RBC (Auto) 3+ H NEGATIVE Urine RBC 0-2 /HPF Urine WBC 10-25 H /HPF Urine Squamous Epithelial Cells 0-2 /HPF Urine Crystals NONE /LPF Urine Bacteria MODERATE H /HPF Urine Casts PRESENT /LPF Urine Hyaline Casts 0-2 H /LPF Urine Mucus SMALL H /LPF Urine Culture Indicated YES White Blood Count 17.0 H 4.3-11.0 10^3/uL Red Blood Count 3.62 L 4.30-5.52 10^6/uL Hemoglobin 9.2 L 13.3-17.7 g/dL Hematocrit 29 L 40-54 % Mean Corpuscular Volume 81 80-99 fL Mean Corpuscular Hemoglobin 25 25-34 pg Mean Corpuscular Hemoglobin Concent 32 32-36 g/dL Red Cell Distribution Width 15.9 H 10.0-14.5 % Platelet Count 285 130-400 10^3/uL Mean Platelet Volume 9.1 9.0-12.2 fL Immature Granulocyte % (Auto) 0 % Neutrophils (%) (Auto) 84 H 42-75 % Lymphocytes (%) (Auto) 9 L 12-44 % Monocytes (%) (Auto) 5 0-12 % Eosinophils (%) (Auto) 1 0-10 % Basophils (%) (Auto) 0 0-10 % Neutrophils # (Auto) 14.3 H 1.8-7.8 10^3/uL Lymphocytes # (Auto) 1.5 1.0-4.0 10^3/uL Monocytes # (Auto) 0.8 0.0-1.0 10^3/uL Eosinophils # (Auto) 0.2 0.0-0.3 10^3/uL Basophils # (Auto) 0.1 0.0-0.1 10^3/uL Immature Granulocyte # (Auto) 0.1 0.0-0.1 10^3/uL Neutrophils % (Manual) 85 % Lymphocytes % (Manual) 8 % Monocytes % (Manual) 3 % Eosinophils % (Manual) 2 % Basophils % (Manual) 1 % Band Neutrophils 1 % Hypochromasia SLIGHT Poikilocytosis SLIGHT Anisocytosis SLIGHT Sodium Level 131 L 135-145 MMOL/L Potassium Level 4.4 3.6-5.0 MMOL/L Chloride Level 93 L 98-107 MMOL/L Carbon Dioxide Level 27 21-32 MMOL/L Anion Gap 11 5-14 MMOL/L Blood Urea Nitrogen 22 H 7-18 MG/DL Creatinine 1.18 0.60-1.30 MG/DL Estimat Glomerular Filtration Rate 69 BUN/Creatinine Ratio 19 Glucose Level 167 H 70-105 MG/DL Lactic Acid Level 1.00 0.50-2.00 MMOL/L Calcium Level 8.3 L 8.5-10.1 MG/DL Corrected Calcium 9.3 8.5-10.1 MG/DL Total Bilirubin 0.4 0.1-1.0 MG/DL Aspartate Amino Transf (AST/SGOT) 13 5-34 U/L Alanine Aminotransferase (ALT/SGPT) 6 0-55 U/L Alkaline Phosphatase 179 H 40-136 U/L C-Reactive Protein 16.50 H <0.50 MG/DL Total Protein 8.0 6.4-8.2 GM/DL Albumin 2.8 L 3.2-4.5 GM/DL Influenza Type A (RT-PCR) Not Detected Not Detecte Influenza Type B (RT-PCR) Not Detected Not Detecte SARS-CoV-2 RNA (RT-PCR) Not Detected Not Detecte My Orders Orders - EL GIL MD Cbc With Automated Diff (06/04/22 21:) Comprehensive Metabolic Panel (06/04/22 21:26) Blood Culture (06/04/22 21:26) Ua Culture If Indicated (06/04/22 21:26) Chest 1 View Ap/Pa Only (06/04/22 21:26) Ed Iv/Invasive Line Start (06/04/22 21:26) Crp Fs (06/04/22 21:26) Lactic Acid Analyzer (06/04/22 21:26) Ct Head Wo (06/04/22 21:26) Covid 19 Inhouse Test (06/04/22 21:26) Influenza A And B By Pcr (06/04/22 21:26) Ns Iv 1000 Ml (Sodium Chloride 0.9%) (06/04/22 21:26) Ekg Tracing (06/04/22 21:26) Manual Differential (06/04/22 21:23) Urine Culture (06/04/22 21:17) Ceftriaxone 1 Gm Pre-Mix (Rocephin 1 Gm (06/04/22 22:46) Vital Signs/I&O 06/04/22 06/04/22 21:16 23:45 Temp 36.3 Pulse 81 86 Resp 18 16 B/P (MAP) 139/97 (111) 126/82 Pulse Ox 98 98 O2 Delivery Room Air Room Air 06/05/22 00:00 Intake Total 1050 ml Balance 1050 ml Capillary Refill : Progress Note #1: Progress Note Obtain labs as well as blood cultures and lactic acid. Chest x-ray to evaluate for his reported shortness of breath. However his oxygen saturation here is 95 to 98% on room air. He has slow response to answer some questions. He is following some commands. Obtain a CT scan of the head since he is reportedly more confused than baseline. Check basic labs and urine looking for signs of infection. Evaluate for electrolyte imbalance, stroke, pneumonia, UTI, dehydration, renal failure, liver failure. Additional history obtained from reviewing his old medical records and chart. Progress Note #2: Progress Note Labs today show an elevated white blood cell count of 17,000 with a left shift. His lactic acid level is 1. Creatinine is 1.18. His CRP is elevated to go along with the inflammatory process or infection. His CT scan of the head did not show any acute process. Chest x-ray shows diffuse patchy infiltrates that are consistent with prior imaging. UA shows nitrites with bacteria and wbc. On review of prior cultures he had Pseudomonas and 2 other organisms in November 2021 but they were all sensitive to cephalosporins so will administer Ceftriaxone 1 gm IV here. 2301 d/w Dr. Nuñez for [facility] as pt follows with Dr. Palacios. She agreed with plan of antibiotics and IVF for hydration. Will write bridge orders to have pt admitted to med/surg bed. ECG Initial ECG Impression Date: Jun 04, 2022 Initial ECG Impression Time: 21:26 Initial ECG Rate: 82 Initial ECG Rhythm: Normal Sinus Initial ECG Comparisson: Unchanged (compared to Sep 2021) Comment Normal sinus rhythm with first-degree AV block and occasional PVCs. Heart rate is 82 bpm. WA interval [address] elevation. QT interval 383 ms with a QTc interval 421 ms. Appears similar overall from tracing in September 2021. Diagnostic Imaging Diagonstic Imaging: Xray Plain Films/CT/US/NM/MRI: chest Comments [facility] [place], [place] NAME: GWENDOLYN [facility] REC#: [id number] PT STATUS: REG ER : 1960 PHYSICIAN: EL GIL MD ADMIT DATE: 06/04/22/ER FS Signed Date of Exam:06/04/22 CHEST 1 VIEW AP/PA ONLY EXAMINATION: Chest 1 view. HISTORY: Confusion. COMPARISON: 10/10/2021. FINDINGS: Patchy opacities are seen throughout the lungs, similar to the prior exam. Stable mild cardiomegaly. No large pleural effusion or pneumothorax. IMPRESSION: 1. Patchy opacities throughout the lungs, similar to the prior exam. Findings may represent underlying granulomatous disease. 2. Stable mild cardiomegaly. No overt pulmonary edema. Dictated by: Dictated on workstation # [id number] Dict: 06/04/222156 Trans: 06/04/222208 LOCATED WITHIN [facility] [id number] Interpreted by: GASTON MENA DO Electronically signed by: GASTON MENA DO 06/04/222208 Reviewed: Reviewed by [place] Diagonstic Imaging: CT Plain Films/CT/US/NM/MRI: head Comments [facility] [place] [place] NAME: GWENDOLYN [facility] REC#: [id number] PT STATUS: REG ER : 1960 PHYSICIAN: EL GIL MD ADMIT DATE: 06/04/22/ER FS Signed Date of Exam:06/04/22 CT HEAD WO EXAMINATION: CT head without contrast. TECHNIQUE: Multiple contiguous axial images were obtained through the brain without the use of intravenous contrast. All CT scans use one or more of the following dose optimizing techniques: automated exposure control, MA and/or KvP adjustment based on patient size and exam type or iterative reconstruction. HISTORY: Confusion. COMPARISON: 05/14/2022. FINDINGS: No large acute territorial ischemia, mass or hemorrhage. No midline shift or mass effect. Decreased attenuation is seen in the periventricular and subcortical white matter. The ventricles and cortical sulci are prominent. The basilar cisterns are patent and unremarkable. The orbits are normal. Paranasal sinuses are normal. Mastoid air cells are clear. No soft tissue abnormality is seen. No osseus lesion or fracture is seen. IMPRESSION: 1. No large acute territorial ischemia, mass or hemorrhage. 2. Chronic microvascular disease. 3. Generalized parenchymal volume loss. Dictated by: Dictated on workstation # [id number] Dict: 06/04/222200 Trans: 06/04/222208 [facility] [id number] Interpreted by: GASTON MENA DO Electronically signed by: GASTON MENA DO 06/04/222208 Reviewed: Reviewed by Me Departure Communication (Admissions) Time/Spoke to Admitting Phy: 23:02 d/w Dr. Nuñez and she accepted pt for admit with IV antibiotics and IV fluids. Impression Primary Impression: UTI (urinary tract infection) due to urinary indwelling catheter Qualified Codes: T83.510A - Infection and inflammatory reaction due to cystostomy catheter, initial encounter; N39.0 - Urinary tract infection, site not specified Additional Impressions: Delirium Confusion Disposition: 30 STILL A PATIENT Condition: Stable Admissions Decision to Admit Reason: Admit from ER (General) Decision to Admit/Date: Jun 04, 2022 Time/Decision to Admit Time: 23:02 Departure-Patient Inst. Referrals: ARNOLDO PALACIOS MD (PCP/Family) Primary Care Physician EL GIL MD Jun 04, 2022 21:31
[2022-06-04 21:39] LABS: BASOPHILS # (AUTO) 0.1 10^3/uL (0.0-0.1); BASOPHILS % (AUTO) 0 % (0-10); EOSINOPHILS # (AUTO) 0.2 10^3/uL (0.0-0.3); EOSINOPHILS % (AUTO) 1 % (0-10); HEMATOCRIT 29 % (40-54); HEMOGLOBIN 9.2 g/dL (13.3-17.7); LYMPHOCYTES # (AUTO) 1.5 10^3/uL (1.0-4.0); LYMPHOCYTES % (AUTO) 9 % (12-44); MEAN CORPUSCULAR HEMOGLOBIN 25 pg (25-34); MEAN CORPUSCULAR HGB CONC 32 g/dL (32-36); MEAN CORPUSCULAR VOLUME 81 fL (80-99); MEAN PLATELET VOLUME 9.1 fL (9.0-12.2); MONOCYTES # (AUTO) 0.8 10^3/uL (0.0-1.0); MONOCYTES % (AUTO) 5 % (0-12); NEUTROPHILS # (AUTO) 14.3 10^3/uL (1.8-7.8); NEUTROPHILS % (AUTO) 84 % (42-75); PLATELET COUNT 285 10^3/uL (130-400)
[2022-06-04 21:47] LABS: BILIRUBIN,URINE NEGATIVE (NEGATIVE); CLARITY,URINE SL CLOUDY; COLOR,URINE YELLOW; GLUCOSE, URINE (UA) NEGATIVE (NEGATIVE); KETONES,URINE NEGATIVE (NEGATIVE); LEUKOCYTE ESTERASE ,URINE 1+ (NEGATIVE); NITRITE,URINE POSITIVE (NEGATIVE); PH,URINE 5.5 (5-9); PROTEIN,URINE 2+ (NEGATIVE)
[2022-06-04 21:53] LABS: BACTERIA,URINE MODERATE /HPF; RBC,URINE 0-2 /HPF; SQUAMOUS EPITHELIAL CELL,UR 0-2 /HPF
[2022-06-04 21:54] LABS: HYALINE CASTS, URINE 0-2 /LPF
[2022-06-04 22:00] LABS: POTASSIUM 4.4 MMOL/L (3.6-5.0)
[2022-06-04 22:01] LABS: ALBUMIN 2.8 GM/DL (3.2-4.5); BILIRUBIN,TOTAL 0.4 MG/DL (0.1-1.0); CALCIUM 8.3 MG/DL (8.5-10.1); CREATININE SERUM 1.18 MG/DL (0.60-1.30)
--- NOTE | 2022-06-04 22:01 | Diagnostic Imaging Report ---
EXAMINATION: Chest 1 view. HISTORY: Confusion. COMPARISON: 10/10/2021. FINDINGS: Patchy opacities are seen throughout the lungs, similar to the prior exam. Stable mild cardiomegaly. No large pleural effusion or pneumothorax. IMPRESSION: 1. Patchy opacities throughout the lungs, similar to the prior exam. Findings may represent underlying granulomatous disease. 2. Stable mild cardiomegaly. No overt pulmonary edema. Dictated by: Dictated on workstation # [id number]
--- NOTE | 2022-06-04 22:04 | Diagnostic Imaging Report ---
EXAMINATION: CT head without contrast. TECHNIQUE: Multiple contiguous axial images were obtained through the brain without the use of intravenous contrast. All CT scans use one or more of the following dose optimizing techniques: automated exposure control, MA and/or KvP adjustment based on patient size and exam type or iterative reconstruction. HISTORY: Confusion. COMPARISON: 05/14/2022. FINDINGS: No large acute territorial ischemia, mass or hemorrhage. No midline shift or mass effect. Decreased attenuation is seen in the periventricular and subcortical white matter. The ventricles and cortical sulci are prominent. The basilar cisterns are patent and unremarkable. The orbits are normal. Paranasal sinuses are normal. Mastoid air cells are clear. No soft tissue abnormality is seen. No osseus lesion or fracture is seen. IMPRESSION: 1. No large acute territorial ischemia, mass or hemorrhage. 2. Chronic microvascular disease. 3. Generalized parenchymal volume loss. Dictated by: Dictated on workstation # [id number]
[2022-06-04 22:14] LABS: ANISOCYTOSIS SLIGHT; BAND NEUTROPHILS 1 %; BASOPHILS % (MANUAL) 1 %; EOSINOPHILS % (MANUAL) 2 %; HYPOCHROMASIA SLIGHT; LYMPHOCYTES % (MANUAL) 8 %; MONOCYTES % (MANUAL) 3 %; NEUTROPHILS % (MANUAL) 85 %; POIKILOCYTOSIS SLIGHT
[2022-06-04] MEDS ORDERED: cefTRIAXone 1 GM PRE-MIX 50 ML IV STA (22:46)
[2022-06-05] VITALS (8 sets, daily range): BP systolic 124–143; BP diastolic 63–97
[2022-06-05] MEDS ORDERED: NS IV 1000 ML 1,000 ML IV SCH (01:45)
[2022-06-05] MEDS ORDERED: RT-ALBUTEROL SULF 2.5 MG/3 ML PRE-MIX VIAL INH PRN (01:45)
[2022-06-05] MEDS: NYSTATIN ORAL SUSP 5 ML UDC PO SCH ×5 (02:35→21:12)
[2022-06-05] MEDS ORDERED: LORazepam INJ 2 MG/ML (ATIVAN) VIAL ONE (06:10)
[2022-06-05] MEDS ORDERED: LORazepam INJ 2 MG/ML (ATIVAN) VIAL IVP PRN (06:15)
[2022-06-05] MEDS: inSUlin ASPART (NovoLOG) 1 UNIT/0.01 ML (CHARGE PER UNIT) SC SCH ×4 (06:54→21:00)
--- NOTE | 2022-06-05 07:45 | History & Physical ---
HPI History of Present Illness: Pt admitted through ER per report due to worsening confusion at [facility] compared to baseline. Suspected to have UTI and admitted and started on antibiotics. Around 5 am he was very agitated and anxious and stated he was going to leave, even though nursing reminded him he is in [place] and doesn't have a vehicle here. Nursing did not think he would accept any oral meds, we ordered 1 mg of IV ativan. About 2 hours later, after shift change, the day nurse went to check on him and his heart rate was in the 180s and his oxygen level was around 80%. He was still agitated, and per report the Ativan never really calmed him. On my arrival, he is on 100% oxygen via non-rebreather with SpO2 100%, awake and able to state name, but doesn't answer other questions. Source: patient, RN/MD Exam Limitations: clinical condition Date seen by provider: Jun 05, 2022 Time Seen by Provider: 07:35 Attending Physician Omar Bejarano MD PCP Admitting Physician: Ladan Nuñez MD Attending Physician: Ladan Nuñez MD Consult Date of Admission Jun 05, 2022 at 00:27 Home Medications Home Medications Reviewed patient Home Medication Reconciliation performed by pharmacy medication reconciliations warehousing technician and/or nursing. Patients Allergies have been reviewed. Allergies Coded Allergies: hydrocodone (Unverified Allergy, Unknown, hives, 02/08/19) aspirin (Unverified Adverse Reaction, Unknown, angioedema, 02/08/19) lisinopril (Unverified Adverse Reaction, Unknown, angioedema, 02/08/19) BSD-[id number]-Dmwnni Hx Patient Social History 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 2nd Hand Smoke Exposure: No Recent Hopitalizations: No Alcohol Use?: No Immunizations Up To Date Influenza Vaccine Up-to-Date: Yes; Up-to-Date (05/20/2022) First/Initial COVID19 Vaccinat: 03/08/2021 Second COVID19 Vaccination [place]: 10/06/2021 COVID19 Booster (Date): 05/20/2022 COVID19 Vaccine Motor Checker: Moderna Past Medical History PMHx: HTN DMII Metastatic prostate cancer History of methamphetamine use Indwelling suprapubic catheter COPD Cardiomyopathy with decreased EF Family Medical History Other Significan Family Hx: Unable to obtain Review of Systems ([facility]) Constitutional: other (unable to obtain due to patient condition) Reviewed Test Results Reviewed Test Results Lab Laboratory Tests Test 06/04/22 21:17 06/04/22 21:23 06/04/22 21:34 06/05/22 06:24 Range/Units Urine Color YELLOW Urine Clarity SL CLOUDY Urine pH 5.5 5-9 Urine Specific [place] 1.025 H 1.016-1.022 Urine Protein 2+ H NEGATIVE Urine Glucose (UA) NEGATIVE NEGATIVE Urine Ketones NEGATIVE NEGATIVE Urine Nitrite POSITIVE H NEGATIVE Urine Bilirubin NEGATIVE NEGATIVE Urine Urobilinogen 0.2 < = 1.0 MG/DL Urine Leukocyte Esterase 1+ H NEGATIVE Urine RBC (Auto) 3+ H NEGATIVE Urine RBC 0-2 /HPF Urine WBC 10-25 H /HPF Urine Squamous Epithelial Cells 0-2 /HPF Urine Crystals NONE /LPF Urine Bacteria MODERATE H /HPF Urine Casts PRESENT /LPF Urine Hyaline Casts 0-2 H /LPF Urine Mucus SMALL H /LPF Urine Culture Indicated YES White Blood Count 17.0 H 4.3-11.0 10^3/uL Red Blood Count 3.62 L 4.30-5.52 10^6/uL Hemoglobin 9.2 L 13.3-17.7 g/dL Hematocrit 29 L 40-54 % Mean Corpuscular Volume 81 80-99 fL Mean Corpuscular Hemoglobin 25 25-34 pg Mean Corpuscular Hemoglobin Concent 32 32-36 g/dL Red Cell Distribution Width 15.9 H 10.0-14.5 % Platelet Count 285 130-400 10^3/uL Mean Platelet Volume 9.1 9.0-12.2 fL Immature Granulocyte % (Auto) 0 % Neutrophils (%) (Auto) 84 H 42-75 % Lymphocytes (%) (Auto) 9 L 12-44 % Monocytes (%) (Auto) 5 0-12 % Eosinophils (%) (Auto) 1 0-10 % Basophils (%) (Auto) 0 0-10 % Neutrophils # (Auto) 14.3 H 1.8-7.8 10^3/uL Lymphocytes # (Auto) 1.5 1.0-4.0 10^3/uL Monocytes # (Auto) 0.8 0.0-1.0 10^3/uL Eosinophils # (Auto) 0.2 0.0-0.3 10^3/uL Basophils # (Auto) 0.1 0.0-0.1 10^3/uL Immature Granulocyte # (Auto) 0.1 0.0-0.1 10^3/uL Neutrophils % (Manual) 85 % Lymphocytes % (Manual) 8 % Monocytes % (Manual) 3 % Eosinophils % (Manual) 2 % Basophils % (Manual) 1 % Band Neutrophils 1 % Hypochromasia SLIGHT Poikilocytosis SLIGHT Anisocytosis SLIGHT Sodium Level 131 L 135-145 MMOL/L Potassium Level 4.4 3.6-5.0 MMOL/L Chloride Level 93 L 98-107 MMOL/L Carbon Dioxide Level 27 21-32 MMOL/L Anion Gap 11 5-14 MMOL/L Blood Urea Nitrogen 22 H 7-18 MG/DL Creatinine 1.18 0.60-1.30 MG/DL Estimat Glomerular Filtration Rate 69 BUN/Creatinine Ratio 19 Glucose Level 167 H 70-105 MG/DL Lactic Acid Level 1.00 0.50-2.00 MMOL/L Calcium Level 8.3 L 8.5-10.1 MG/DL Corrected Calcium 9.3 8.5-10.1 MG/DL Total Bilirubin 0.4 0.1-1.0 MG/DL Aspartate Amino Transf (AST/SGOT) 13 5-34 U/L Alanine Aminotransferase (ALT/SGPT) 6 0-55 U/L Alkaline Phosphatase 179 H 40-136 U/L C-Reactive Protein 16.50 H <0.50 MG/DL Total Protein 8.0 6.4-8.2 GM/DL Albumin 2.8 L 3.2-4.5 GM/DL Influenza Type A (RT-PCR) Not Detected Not Detecte Influenza Type B (RT-PCR) Not Detected Not Detecte SARS-CoV-2 RNA (RT-PCR) Not Detected Not Detecte Glucometer 127 H 70-110 MG/DL Test 06/05/22 07:40 Range/Units Blood Gas Puncture Site LT RADIAL Blood Gas Patient Temperature 36.7 Arterial Blood pH 7.35 L 7.37-7.43 Arterial Blood Partial Pressure CO2 52 H 35-45 MMHG Arterial Blood Partial Pressure O2 245 H 79-93 MMHG Arterial Blood HCO3 28 H 23-27 MMOL/L Arterial Blood Total CO2 29.3 21.0-31.0 MMOL/L Arterial Blood Oxygen Saturation 100 94-100 % Arterial Blood Base Excess 2.5 -2.5-2.5 MMOL/L Yvan Test YES-POS Blood Gas Ventilator Setting NO Blood Gas Inspired Oxygen 15 Radiology CXR 06/04/22: "IMPRESSION: 1. Patchy opacities throughout the lungs, similar to the prior exam. Findings may represent underlying granulomatous disease. 2. Stable mild cardiomegaly. No overt pulmonary edema." CT head 06/04/22: "IMPRESSION: 1. No large acute territorial ischemia, mass or hemorrhage. 2. Chronic microvascular disease. 3. Generalized parenchymal volume loss." Physical Exam-([facility]) Physical Exam Vital Signs VS - Last 72 Hours, by Label 06/04/22 06/04/22 06/05/22 06/05/22 21:16 23:45 00:55 01:00 Temp 36.3 36.9 Pulse 81 86 87 Resp 18 16 22 B/P (MAP) 139/97 (111) 126/82 143/84 (103) Pulse Ox 98 98 96 96 O2 Delivery Room Air Room Air OxyMask OxyMask O2 Flow Rate 3.00 3.00 06/05/22 06/05/22 06/05/22 06/05/22 01:29 04:00 07:13 07:55 Temp 36.3 36.6 Pulse 81 74 91 Resp 16 B/P (MAP) 134/73 (93) Pulse Ox 98 98 91 O2 Delivery OxyMask O2 Flow Rate 3.00 5.00 FiO2 21 Capillary Refill : Less Than 3 Seconds General Appearance: moderate distress, obese Eyes: Bilateral Eye PERRL Respiratory: rhonchi Cardiovascular: regular rate, rhythm, no murmur Gastrointestinal: normal bowel sounds, non tender, soft Extremities: no pedal edema Neurologic/Psychiatric: No facial droop; other (somnolent, but opens eyes and answer his name) Skin: other (peeling skin with faint erythema on both feet) Assessment/Plan Assessment/Plan Admission Status: Inpatient Order (span 2 midnights) Reason for Inpatient Admission: Acute on chronic respiratory failure with underlying metastatic cancer (1) Delirium Status: Acute Assessment & Plan: CT head without acute findings, suspected to be related to UTI/sepsis. Reorient, minimize meds as much as possible. (2) UTI (urinary tract infection) due to urinary indwelling catheter Status: Acute Assessment & Plan: See sepsis diagnosis. Qualifiers: Qualified Codes: T83.510A - Infection and inflammatory reaction due to cystostomy catheter, initial encounter; N39.0 - Urinary tract infection, site not specified (3) Sepsis Status: Acute Assessment & Plan: Suspected to be secondary to UTI. Started on ceftriaxone based on previous results. Lactic acid initially and no end organ damage at admission. Qualifiers: Qualified Codes: A41.9 - Sepsis, unspecified organism (4) Acute respiratory failure Status: Acute Assessment & Plan: Moved to ICU, able to be weaned back to 5 lpm nasal cannula, ABG, BNP, CXR pending. Hold IVF. Flu and COVID swabs negative on admit. Qualifiers: Qualified Codes: J96.01 - Acute respiratory failure with hypoxia (5) Hypertension Status: Chronic Assessment & Plan: Resume home meds when needed. Qualifiers: Qualified Codes: I10 - Essential (primary) hypertension (6) COPD (chronic obstructive pulmonary disease) Status: Chronic Assessment & Plan: RT, duonebs. (7) Insulin dependent diabetes mellitus Status: Chronic Assessment & Plan: Sliding scale insulin. Diabetic diet when stable for PO intake. (8) Anemia Status: Chronic Qualifiers: Qualified Codes: D63.0 - Anemia in neoplastic disease (9) Hyponatremia Status: Acute (10) Prostate cancer metastatic to multiple sites Status: Chronic (11) DVT prophylaxis Status: Acute Assessment & Plan: Enoxaparin LADAN NUÑEZ MD Jun 05, 2022 07:45
[2022-06-05 07:58] LABS: ABG BASE EXCESS 2.5 MMOL/L (-2.5-2.5); ABG OXYGEN SATURATION 100 % (94-100); ABG PCO2 52 MMHG (35-45); ABG PH 7.35 (7.37-7.43); ABG PO2 245 MMHG (79-93); ABG TCO2 29.3 MMOL/L (21.0-31.0)
[2022-06-05 07:59] LABS: ALLENS TEST YES-POS; INSPIRED O2 15; PATIENT TEMP 36.7; VENTILATOR NO
[2022-06-05 08:13] LABS: BASOPHILS # (AUTO) 0.1 10^3/uL (0.0-0.1); BASOPHILS % (AUTO) 0 % (0-10); EOSINOPHILS # (AUTO) 0.1 10^3/uL (0.0-0.3); EOSINOPHILS % (AUTO) 1 % (0-10); HEMATOCRIT 29 % (40-54); HEMOGLOBIN 8.8 g/dL (13.3-17.7); LYMPHOCYTES # (AUTO) 0.9 10^3/uL (1.0-4.0); LYMPHOCYTES % (AUTO) 6 % (12-44); MEAN CORPUSCULAR HEMOGLOBIN 25 pg (25-34); MEAN CORPUSCULAR HGB CONC 31 g/dL (32-36); MEAN CORPUSCULAR VOLUME 83 fL (80-99); MONOCYTES # (AUTO) 0.8 10^3/uL (0.0-1.0); MONOCYTES % (AUTO) 5 % (0-12); NEUTROPHILS # (AUTO) 12.5 10^3/uL (1.8-7.8); NEUTROPHILS % (AUTO) 87 % (42-75); PLATELET COUNT 231 10^3/uL (130-400); WHITE BLOOD COUNT 14.3 10^3/uL (4.3-11.0)
[2022-06-05 08:22] LABS: ALBUMIN 2.8 GM/DL (3.2-4.5); CHLORIDE 99 MMOL/L (98-107); POTASSIUM 4.1 MMOL/L (3.6-5.0); SODIUM 133 MMOL/L (135-145)
[2022-06-05 08:23] LABS: CALCIUM 8.4 MG/DL (8.5-10.1)
[2022-06-05 08:24] LABS: GLUCOSE 158 MG/DL (70-105); TOTAL PROTEIN 7.9 GM/DL (6.4-8.2)
[2022-06-05 08:25] LABS: CARBON DIOXIDE 25 MMOL/L (21-32)
[2022-06-05 08:26] LABS: BILIRUBIN,TOTAL 0.3 MG/DL (0.1-1.0)
[2022-06-05 08:27] LABS: ALKALINE PHOSPHATASE 142 U/L (40-136)
[2022-06-05 08:28] LABS: CREATININE SERUM 1.17 MG/DL (0.60-1.30); GFR ESTIMATED 70
[2022-06-05 08:29] LABS: BUN/CREATININE RATIO 19
[2022-06-05 08:31] LABS: ALANINE AMINOTRANSFERASE 6 U/L (0-55)
--- NOTE | 2022-06-05 08:33 | Diagnostic Imaging Report ---
INDICATION: Respiratory distress. COMPARISON: CT chest, abdomen, and pelvis dated 09/05/2018 FINDINGS: Single frontal radiographic view of the chest was obtained and shows normal cardiac silhouette and pulmonary vasculature. The lungs are clear. There is no focal consolidation, large effusion, nor pneumothorax. Osseous structures have a diffusely abnormal sclerotic appearance suggestive of osteoblastic metastatic disease. IMPRESSION: 1. No acute cardiopulmonary process. 2. 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 Correlation with history of primary such as prostate cancer is advised. If this is an unknown/new finding, correlation with whole-body bone scan may be of benefit. Dictated by: Dictated on workstation # [id number]
[2022-06-05] MEDS ORDERED: HOLD METFORMIN - RECEIVED CONTRAST 20 ML VIAL IV SCH (09:00)
[2022-06-05] MEDS ORDERED: IOHEXOL 350 MG/ML 100 ML (OMNIPAQUE 350) VIAL IV ONE (09:00)
[2022-06-05] MEDS ORDERED: NS 100 ML (IVPB) BAG IV ONE (09:00)
[2022-06-05] MEDS ORDERED: CATHETER FLUSH 10 ML SYR IV PRN (09:00)
[2022-06-05] MEDS: ENOXAPARIN 40 MG/0.4 ML (LOVENOX) SYR SQ SCH (10:01)
--- NOTE | 2022-06-05 10:30 | Diagnostic Imaging Report ---
PROCEDURE: CT angiography of the chest with contrast. TECHNIQUE: Multiple contiguous axial images were obtained through the chest after uneventful bolus administration of intravenous contrast. 3D reconstructed CTA MIP acquisitions were also performed. Auto Exposure Controls were utilized during the CT exam to meet ALARA standards for radiation dose reduction. INDICATION: Elevated D-dimer. COMPARISON is made with prior CT from 07/06/2019. Evaluation of the pulmonary arterial system is without evidence of thromboembolism. No definite filling defects are seen within central, lobar and segmental branches. Thoracic aorta is normal caliber. There is no dissection. No pericardial fluid is seen. There is trace left and small right pleural effusion. No axillary lymphadenopathy is identified. Mildly prominent nonspecific lymph nodes in the mediastinum are noted. There is parenchymal consolidation in the posterior right upper lobe. There are also areas of bilateral lower lobe infiltrate or atelectasis. No masses are seen. Upper abdomen is unremarkable. IMPRESSION: 1. No evidence of pulmonary embolus or acute aortic disease. 2. Bilateral effusions, right greater with bilateral infiltrates or atelectasis. Dictated by: Dictated on workstation # [id number]
[2022-06-05] MEDS: RT-ALBUTEROL SULF 2.5 MG/3 ML PRE-MIX VIAL INH SCH ×4 (10:43→22:48)
[2022-06-05] MEDS ORDERED: MIRT-69 PO (11:16)
[2022-06-05] MEDS ORDERED: GBPN600T PO (11:16)
[2022-06-05] MEDS ORDERED: INSU100I76 SC (11:16)
[2022-06-05] MEDS ORDERED: ACET-2267 PO (11:16)
[2022-06-05] MEDS ORDERED: POLY238P32 PO (11:16)
[2022-06-05] MEDS ORDERED: PANT40TA52 PO (11:16)
[2022-06-05] MEDS ORDERED: LEVO50TA6 PO (11:16)
[2022-06-05] MEDS ORDERED: CYCL10TA25 PO (11:16)
[2022-06-05] MEDS ORDERED: MORP-68 PO (11:16)
[2022-06-05] MEDS ORDERED: MELATONIN PO (11:16)
[2022-06-05] MEDS ORDERED: OXYC10TA7 PO (11:16)
[2022-06-05] MEDS ORDERED: AMLO-250 PO (11:16)
[2022-06-05] MEDS ORDERED: SERT-414 PO (11:16)
[2022-06-05] MEDS ORDERED: CALC-233 PO (11:16)
[2022-06-05] MEDS ORDERED: SENN-117 PO (11:16)
[2022-06-05] MEDS ORDERED: OXYB5TAB13 PO (11:26)
[2022-06-05] MEDS ORDERED: TOLN113C2 TP (11:26)
[2022-06-05] MEDS ORDERED: DIAZ5TAB49 PO (11:26)
[2022-06-05] MEDS ORDERED: CHOL500049 PO (11:26)
[2022-06-05] MEDS ORDERED: METO50TA15 PO (11:26)
[2022-06-05] MEDS ORDERED: RT-ALBUINH INH (11:31)
--- NOTE | 2022-06-05 12:08 | Tele-ICU Consult ---
History of Present Illness History of Present Illness Date Seen by Provider: Jun 05, 2022 Time Seen by Provider: 12:08 Date of Admission . (Tele-ICU Physician , consultation) Available chart/ vitals / labs / Images reviewed H&P is from ER notes Patient's information available about PMH, Shx, Fhx allergy reviewed inEMR. ROS as per chart and RN report Now in ICU, hemodynamically stable Video assessment done using teleICU camera, rest of exam as per RN Discussed with RN. Consultants: Hospital course: A/P Acute hypoxix resp failure - ? 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 -Echo of 06/27/19: LVEF 35-40%, mild enlargement of LA, grade 2 diastolic dysfunction, mild to mod MR & TR, RVSP 22 mmHg Dm - ISS Metastatic prostate cancer History of methamphetamine use Lines : periph , PICC plan for 06/05 - poor ascess (Central Line Necessity Reviewed) Perkins: suprap OG: Nutrition: Analgesia: Anxiety/ delirium VTE Prophylaxis: sreekanth Stress Ulcer Prophylaxis: Plans in collaboration with bedside consultants and IM MDs. Discussed with RN to reach out if any questions or concerns A total of 31 minutes of critical care time was devoted to this patient today, required to treat and/or prevent further deterioration of critical care condition ( as above ) . I am remotely monitoring this patient from another state. I am unable to do the bedside exam, and history/physical and pertinent information is taken from other notes in the computer and bedside staff. I cannot take responsibility for the accuracy of this information. . Allergies and Home Medications Allergies Coded Allergies: hydrocodone (Unverified Allergy, Unknown, hives, 02/08/19) aspirin (Unverified Adverse Reaction, Unknown, angioedema, 02/08/19) lisinopril (Unverified Adverse Reaction, Unknown, angioedema, 02/08/19) Home Medications Acetaminophen 500 Mg Tablet, 1,000 MG PO Q8H PRN for PAIN-MILD (1-4), (Reported) Albuterol Sulfate 6.7 Gm Hfa.aer.ad, 1 PUFF INH Q4H PRN for SHORTNESS OF BREATH, (Reported) Amlodipine Besylate 5 Mg Tablet, 5 MG PO DAILY, (Reported) Calcium Carbonate 200 Mg Calcium (500 Mg) Tab.chew, 2 EA PO ACHS, (Reported) Cholecalciferol (Vitamin D3) 1,250 Mcg (17169 Unit) Capsule, 1,250 MCG PO WED, (Reported) Cyclobenzaprine HCl 10 Mg Tablet, 10 MG PO 0800,1400,1999, (Reported) Diazepam 5 Mg Tablet, 5 MG PO 1999, (Reported) Gabapentin 600 Mg Tablet, 600 MG PO 0800,1400,1999, (Reported) Insulin Glargine-Yfgn 100 Unit/Ml (3 Ml) Insuln.pen, 10 UNITS SC DAILY, (Reported) Levothyroxine Sodium 50 Mcg Tablet, 50 MCG PO DAILY, (Reported) Metoprolol Tartrate 50 Mg Tablet, 50 MG PO 0800,1700, (Reported) Mirtazapine 30 Mg Tablet, 30 MG PO HS, (Reported) Morphine Sulfate 15 Mg Tablet.er, 15 MG PO 0600,1800, (Reported) Oxybutynin Chloride 5 Mg Tablet, 5 MG PO BID, (Reported) Oxycodone HCl 10 Mg Tablet, 10 MG PO Q6H PRN for PAIN-BREAKTHROUGH, (Reported) Pantoprazole Sodium 40 Mg Tablet.dr, 40 MG PO DAILY, (Reported) Polyethylene Glycol 3350 17 Gram/Dose Powder, 17 GM PO DAILY, (Reported) Sennosides/Docusate Sodium 8.6 Mg-50 Mg Tablet, 1 EA PO BID, (Reported) Sertraline HCl 100 Mg Tablet, 100 MG PO DAILY, (Reported) Tolnaftate 1 % Cream..g., 1 APPLIC TP BID, (Reported) APPLY TO AFFECTED AREAS AROUND NAILS AND UNDERNEATH NAIL TOP [Melatonin] 12 TAB, 12 MG PO HS, (Reported) Past Medical/Social/Family Hx Patient Social History Tobacco Use?: No Substance use?: No Alcohol Use?: No Pt stated abuse/neglect: Unable to obtain Immunizations Up To Date Influenza Vaccine Up-to-Date: Yes; Up-to-Date (05/20/2022) First/Initial COVID19 Vaccinat: 03/08/2021 Second COVID19 Vaccination [place]: 10/06/2021 Current Status Advance Directives: Unable to obtain Communicates: Verbally Primary Language: Turkish Preferred Spoken Language: Turkish Is interpretation needed?: No Past Medical History PMHx: HTN DMII Metastatic prostate cancer History of methamphetamine use Indwelling suprapubic catheter COPD Cardiomyopathy with decreased EF Family Medical History Family Hx: Unable to obtain Review of Systems Constitutional: see HPI Focused Exam Lactate Level 06/04/22 21:23: Lactic Acid Level 1.00 06/05/22 08:01: Lactic Acid Level 0.83 Height, Weight, BMI Height: 5'9.00" Weight: 251lbs. 0oz. 113.953276tp; 33.75 BMI Method:Actual Exam Exam Patient acknowledged, consented, and participated in this virtual visit which was conducted using real time audio/video Vital Signs Date Time Temp Pulse Resp B/P (MAP) Pulse Ox O2 Delivery O2 Flow Rate FiO2 06/05/22 12:00 81 19 112/65 (81) 96 Nasal Cannula 5.00 06/05/22 11:00 84 20 124/65 (84) 95 Nasal Cannula 5.00 06/05/22 10:50 96 Nasal Cannula 3.00 06/05/22 10:00 86 19 133/72 (92) 99 Nasal Cannula 5.00 06/05/22 09:00 86 21 125/73 (90) 96 Nasal Cannula 5.00 06/05/22 08:43 36.7 93 90 06/05/22 08:00 36.7 93 20 133/63 (86) 90 Nasal Cannula 5.00 06/05/22 07:55 91 06/05/22 07:13 91 5.00 06/05/22 04:00 36.6 74 16 134/73 (93) 98 OxyMask 3.00 06/05/22 01:29 36.3 81 98 21 06/05/22 01:00 96 OxyMask 3.00 06/05/22 00:55 36.9 87 22 143/84 (103) 96 OxyMask 3.00 06/04/22 23:45 86 16 126/82 98 Room Air 06/04/22 21:16 36.3 81 18 139/97 (111) 98 Room Air I & O 06/05/22 06:59 Intake Total 1050 ml Output Total 1050 ml Balance 0 ml Height & Weight Height: 5'9.00" Weight: 251lbs. 0oz. 113.582824gf; 33.75 BMI Method:Actual General Appearance: No Apparent Distress, Chronically ill HEENT: PERRL/EOMI; No Moist Mucous Membranes (dry mucous membranes with white plaques in mouth and oral mucosa) Neck: Non Tender, Supple Respiratory: Chest Non Tender, Lungs Clear, Decreased Breath Sounds Cardiovascular: Regular Rate, Rhythm, Normal Peripheral Pulses Capillary Refill: Less Than 3 Seconds Gastrointestinal: normal bowel sounds, non tender, soft Extremity: Normal Capillary Refill, Pedal Edema Neurologic/Psychiatric: Alert, Oriented x3 (states his name, age, month, location as [facility]), 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
[2022-06-05] MEDS: cefTRIAXone 1 GM/50 ML (PRE-MIX) IV SCH (21:12)
[2022-06-06] MEDS: RT-ALBUTEROL SULF 2.5 MG/3 ML PRE-MIX VIAL INH SCH ×5 (02:42→18:46)
[2022-06-06] MEDS ORDERED: NS IV 500 ML 500 ML IV PRN (03:45)
[2022-06-06 04:25] LABS: CALCIUM 8.5 MG/DL (8.5-10.1)
[2022-06-06 04:29] LABS: CREATININE SERUM 0.98 MG/DL (0.60-1.30)
[2022-06-06 04:31] LABS: MAGNESIUM 1.7 MG/DL (1.6-2.4)
[2022-06-06 05:21] LABS: HEMATOCRIT 24 % (40-54); HEMOGLOBIN 7.8 g/dL (13.3-17.7); MEAN CORPUSCULAR HEMOGLOBIN 26 pg (25-34); MEAN CORPUSCULAR HGB CONC 32 g/dL (32-36); MEAN CORPUSCULAR VOLUME 82 fL (80-99); MEAN PLATELET VOLUME 9.9 fL (9.0-12.2); PLATELET COUNT 271 10^3/uL (130-400); WHITE BLOOD COUNT 11.4 10^3/uL (4.3-11.0)
[2022-06-06] MEDS: inSUlin ASPART (NovoLOG) 1 UNIT/0.01 ML (CHARGE PER UNIT) SC SCH ×4 (05:55→21:03)
[2022-06-06] MEDS ORDERED: POTASSIUM CL 10MEQ/50ML IVPB 50 ML IV SCH (06:00)
[2022-06-06] MEDS ORDERED: KCL 20 MEQ TAB (K-DUR) PO SCH (06:00)
[2022-06-06] MEDS ORDERED: MAGNESIUM 1 GM/100 ML IVPB 100 ML IV SCH (06:00)
--- NOTE | 2022-06-06 06:14 | Progress Note - Hospitalist ---
Subjective HPI/CC On Admission Date Seen by Provider: Jun 06, 2022 Time Seen by Provider: 08:00 Subjective/Events-last exam Improved status Confusion still present Very anxious at times Moving to 4th floor today Reviewed meds and labs UCx pending Review of Systems Neurological: Confusion Focused Exam Lactate Level 06/04/22 21:23: Lactic Acid Level 1.00 06/05/22 08:01: Lactic Acid Level 0.83 Objective Exam Vital Signs Vital Signs Date Time Temp Pulse Resp B/P (MAP) Pulse Ox O2 Delivery O2 Flow Rate FiO2 06/06/22 18:46 95 Room Air 0.00 06/06/22 15:44 36.7 80 16 151/81 (104) 06/05/22 16:00 97 Capillary Refill : Less Than 3 Seconds General Appearance: No Apparent Distress, WD/WN, Chronically ill, Obese Respiratory: Lungs Clear, Normal Breath Sounds Cardiovascular: Regular Rate, Rhythm Neurologic/Psychiatric: Alert, Disoriented Results/Procedures Lab Laboratory Tests 06/06/22 04:03 Patient resulted labs reviewed. Assessment/Plan Assessment and Plan Assess & Plan/Chief Complaint (1) Delirium Status: Acute Assessment & Plan: CT head without acute findings, suspected to be related to UTI/sepsis. Reorient, minimize meds as much as possible. (2) UTI (urinary tract infection) due to urinary indwelling catheter Status: Acute Assessment & Plan: See sepsis diagnosis. Qualifiers: Qualified Codes: T83.510A - Infection and inflammatory reaction due to cystostomy catheter, initial encounter; N39.0 - Urinary tract infection, site not specified (3) Sepsis Status: Acute Assessment & Plan: Suspected to be secondary to UTI. Started on ceftriaxone based on previous results. Lactic acid initially and no end organ damage at admission. Qualifiers: Qualified Codes: A41.9 - Sepsis, unspecified organism (4) Acute respiratory failure Status: Acute Assessment & Plan: Moved to ICU, able to be weaned back to 5 lpm nasal cannula, ABG, BNP, CXR pending. Hold IVF. Flu and COVID swabs negative on admit. Qualifiers: Qualified Codes: J96.01 - Acute respiratory failure with hypoxia (5) Hypertension Status: Chronic Assessment & Plan: Resume home meds when needed. Qualifiers: Qualified Codes: I10 - Essential (primary) hypertension (6) COPD (chronic obstructive pulmonary disease) Status: Chronic Assessment & Plan: RT, duonebs. (7) Insulin dependent diabetes mellitus Status: Chronic Assessment & Plan: Sliding scale insulin. Diabetic diet when stable for PO intake. (8) Anemia Status: Chronic Qualifiers: Qualified Codes: D63.0 - Anemia in neoplastic disease (9) Hyponatremia Status: Acute (10) Prostate cancer metastatic to multiple sites Status: Chronic (11) DVT prophylaxis Status: Acute Assessment & Plan: Enoxaparin ROS ZIMMER DO Jun 06, 2022 06:14
--- NOTE | 2022-06-06 09:22 | Tele-ICU Progress Note ---
Subjective Date Seen by a Provider: Jun 06, 2022 Time Seen by a Provider: 09:22 Subjective/Events-last exam Tele-ICU Physician , Progress Note ) Available chart/ vitals / labs / Images reviewed Video assessment done using teleICU camera, rest of exam as per RN Discussed with RN Events overnight : Afebrile hemodynamically stable Respiratory - I/O = Drips: Pressors- no Consultants: Hospital course:, A/P CVS/HTN Rhythem Echo Respiratory System. GI Kidneys. . 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 Discussed with RN to reach out if any questions or concerns Sepsis Event Evaluation Height, Weight, BMI Height: 5'9.00" Weight: 251lbs. 0oz. 113.639150gu; 32.97 BMI Method:Actual Focused Exam Lactate Level 06/04/22 21:23: Lactic Acid Level 1.00 06/05/22 08:01: Lactic Acid Level 0.83 Exam Exam Patient acknowledged, consented, and participated in this virtual visit which was conducted using real time audio/video Vital Signs Date Time Temp Pulse Resp B/P (MAP) Pulse Ox O2 Delivery O2 Flow Rate FiO2 06/06/22 08:00 82 18 157/100 (119) 94 Room Air 06/06/22 07:56 Room Air 06/06/22 07:34 36.5 06/06/22 07:00 80 06/06/22 07:00 81 13 179/137 (151) 96 Room Air 06/06/22 06:31 93 Room Air 0.00 06/06/22 06:00 79 19 173/69 (103) 97 Room Air 06/06/22 05:00 75 22 173/97 (122) 97 Room Air 06/06/22 04:00 Room Air 06/06/22 04:00 79 20 163/80 (107) 95 Room Air 06/06/22 03:00 78 10 139/63 (88) 94 Room Air 06/06/22 02:42 93 Room Air 06/06/22 02:00 81 19 161/92 (115) 97 Room Air 06/06/22 01:00 80 06/06/22 01:00 79 24 159/89 (112) 97 Room Air 06/06/22 00:00 87 18 125/112 (116) 97 Room Air 06/06/22 00:00 36.2 06/05/22 23:59 Room Air 06/05/22 23:00 86 22 148/61 (90) 94 Room Air 06/05/22 22:48 94 Nasal Cannula 1.00 06/05/22 22:00 85 15 142/70 (94) 91 Room Air 06/05/22 21:00 84 26 131/63 (85) 98 Nasal Cannula 2.00 06/05/22 20:00 78 17 137/85 (102) 98 Nasal Cannula 5.00 06/05/22 20:00 36.0 06/05/22 20:00 Nasal Cannula 2.00 06/05/22 19:01 96 Nasal Cannula 1.00 06/05/22 19:00 77 22 148/83 (104) 97 Nasal Cannula 5.00 06/05/22 19:00 79 06/05/22 19:00 36.0 06/05/22 18:00 76 13 134/83 (100) 99 Nasal Cannula 5.00 06/05/22 17:00 75 14 137/71 (93) 100 Nasal Cannula 5.00 06/05/22 16:00 80 16 129/66 (87) 98 Nasal Cannula 5.00 06/05/22 16:00 Nasal Cannula 5.00 97 06/05/22 16:00 36.0 06/05/22 15:22 96 Nasal Cannula 2.00 06/05/22 15:00 83 20 139/73 (95) 92 Nasal Cannula 5.00 06/05/22 14:00 79 22 111/60 (77) 97 Nasal Cannula 5.00 06/05/22 13:00 81 14 145/73 (97) 98 Nasal Cannula 5.00 06/05/22 12:51 83 06/05/22 12:00 36.3 06/05/22 12:00 Nasal Cannula 5.00 97 06/05/22 12:00 81 19 112/65 (81) 96 Nasal Cannula 5.00 06/05/22 11:00 84 20 124/65 (84) 95 Nasal Cannula 5.00 06/05/22 10:50 96 Nasal Cannula 3.00 06/05/22 10:00 86 19 133/72 (92) 99 Nasal Cannula 5.00 I & O 06/06/22 07:00 Intake Total 1090 ml Output Total 1325 ml Balance -235 ml Height & Weight Height: 5'9.00" Weight: 251lbs. 0oz. 113.920575pz; 32.97 BMI Method:Actual General Appearance: No Apparent Distress, Chronically ill HEENT: PERRL/EOMI; No Moist Mucous Membranes (dry mucous membranes with white plaques in mouth and oral mucosa) Neck: Non Tender, Supple Respiratory: Chest Non Tender, Lungs Clear, Decreased Breath Sounds Cardiovascular: Regular Rate, Rhythm, Normal Peripheral Pulses Capillary Refill: Less Than 3 Seconds Gastrointestinal: normal bowel sounds, non tender, soft Extremity: Normal Capillary Refill, Pedal Edema Neurologic/Psychiatric: Alert, Oriented x3 (states his name, age, month, location as [facility]), 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
[2022-06-06] MEDS: NYSTATIN ORAL SUSP 5 ML UDC PO SCH ×4 (10:05→20:03)
[2022-06-06] MEDS: ENOXAPARIN 40 MG/0.4 ML (LOVENOX) SYR SQ SCH (10:05)
[2022-06-06 12:46] VITALS: BP 151/74
[2022-06-06 15:44] VITALS: BP 151/81
[2022-06-06] MEDS ORDERED: ACETAMINOPHEN 500 MG TAB (TYLENOL) PO PRN (19:30)
[2022-06-06] MEDS ORDERED: RT-ALBUTEROL SULF 2.5 MG/3 ML PRE-MIX VIAL INH PRN (19:30)
[2022-06-06] MEDS ORDERED: CYCLOBENZAPRINE 10 MG (FLEXERIL) TAB PO SCH (20:00)
[2022-06-06] MEDS: MELATONIN 10 MG TABLET PO SCH (20:03)
[2022-06-06] MEDS: CALCIUM CARBONATE 500 MG (TUMS) TAB.CHEW PO SCH (20:03)
[2022-06-06] MEDS: GABAPENTIN 600 MG (NEURONTIN) TAB PO SCH (20:03)
[2022-06-06] MEDS: cefTRIAXone 1 GM/50 ML (PRE-MIX) IV SCH (20:03)
[2022-06-06] MEDS: MIRTAZAPINE 15 MG (REMERON) TAB PO SCH (20:03)
[2022-06-06] MEDS: SENNA W/DOCUSATE (SENOKOT S) TABLET PO SCH (20:03)
[2022-06-06] MEDS: OXYBUTYNIN (DITROPAN) 5 MG TAB PO SCH (20:03)
[2022-06-06 20:08] VITALS: BP 157/82
[2022-06-06] MEDS ORDERED: cloNIDine 0.1 MG (CATAPRES) TAB PO PRN (20:15)
[2022-06-06] MEDS ORDERED: CYCLOBENZAPRINE 10 MG (FLEXERIL) TAB PO PRN (20:15)
[2022-06-06] MEDS ORDERED: TOLNAFTATE 1% TP SCH (21:00)
[2022-06-06] MEDS: HALOPERIDOL 5 MG/ML (HALDOL) VIAL IM PRN (21:43)
[2022-06-06] MEDS ORDERED: ZIPRASIDONE 20 MG INJ (GEODON) VIAL IM PRN (22:15)
[2022-06-06] MEDS ORDERED: WATER (STERILE) FOR INJ 10 ML BTL INJ SCH (22:15)
[2022-06-06] MEDS: LORazepam 0.5 MG (ATIVAN) TABLET PO PRN (23:18)
[2022-06-07 00:22] VITALS: BP 173/87
[2022-06-07] MEDS: LEVOTHYROXINE 50 MCG (LEVOTHROID) TAB PO SCH (05:09)
[2022-06-07] MEDS: morphine ER 15 MG (MS CONTIN) TAB PO SCH ×2 (05:09→17:04)
[2022-06-07] MEDS: CALCIUM CARBONATE 500 MG (TUMS) TAB.CHEW PO SCH ×4 (05:09→20:08)
[2022-06-07] MEDS: PANTOPRAZOLE 40 MG (PROTONIX) TAB PO SCH (05:10)
[2022-06-07] MEDS: inSUlin ASPART (NovoLOG) 1 UNIT/0.01 ML (CHARGE PER UNIT) SC SCH ×4 (05:27→20:17)
[2022-06-07 05:38] LABS: BASOPHILS # (AUTO) 0.1 10^3/uL (0.0-0.1); BASOPHILS % (AUTO) 1 % (0-10); EOSINOPHILS # (AUTO) 0.3 10^3/uL (0.0-0.3); EOSINOPHILS % (AUTO) 4 % (0-10); HEMATOCRIT 26 % (40-54); HEMOGLOBIN 8.1 g/dL (13.3-17.7); LYMPHOCYTES # (AUTO) 0.9 10^3/uL (1.0-4.0); LYMPHOCYTES % (AUTO) 11 % (12-44); MEAN CORPUSCULAR HEMOGLOBIN 25 pg (25-34); MEAN CORPUSCULAR HGB CONC 31 g/dL (32-36); MEAN CORPUSCULAR VOLUME 81 fL (80-99); MEAN PLATELET VOLUME 9.1 fL (9.0-12.2); MONOCYTES # (AUTO) 0.5 10^3/uL (0.0-1.0); MONOCYTES % (AUTO) 6 % (0-12); NEUTROPHILS # (AUTO) 6.6 10^3/uL (1.8-7.8); NEUTROPHILS % (AUTO) 78 % (42-75); PLATELET COUNT 285 10^3/uL (130-400); WHITE BLOOD COUNT 8.4 10^3/uL (4.3-11.0)
[2022-06-07 05:55] LABS: ALBUMIN 2.8 GM/DL (3.2-4.5)
[2022-06-07 05:56] LABS: POTASSIUM 3.5 MMOL/L (3.6-5.0)
[2022-06-07 05:57] LABS: CALCIUM 8.7 MG/DL (8.5-10.1)
[2022-06-07 05:58] LABS: TOTAL PROTEIN 7.6 GM/DL (6.4-8.2)
[2022-06-07 06:00] LABS: BILIRUBIN,TOTAL 0.2 MG/DL (0.1-1.0)
[2022-06-07 06:02] LABS: CREATININE SERUM 0.84 MG/DL (0.60-1.30)
[2022-06-07 07:28] VITALS: BP 159/84
--- NOTE | 2022-06-07 07:43 | Progress Note - Hospitalist ---
Subjective HPI/CC On Admission Date Seen by Provider: Jun 07, 2022 Time Seen by Provider: 10:30 Subjective/Events-last exam Patient with severe delirium Out of control behavior will require multiple meds Labs reviewed no significant changes Changing PO abx Review of Systems Neurological: Confusion Focused Exam Lactate Level 06/04/22 21:23: Lactic Acid Level 1.00 06/05/22 08:01: Lactic Acid Level 0.83 Objective Exam Vital Signs Vital Signs Date Time Temp Pulse Resp B/P (MAP) Pulse Ox O2 Delivery O2 Flow Rate FiO2 06/07/22 19:51 37.3 92 20 179/76 (110) 92 Room Air 06/06/22 18:46 0.00 06/05/22 16:00 97 Capillary Refill : Less Than 3 Seconds General Appearance: Anxious, Chronically ill, Obese, Other (confused, restless) Results/Procedures Lab Laboratory Tests 06/07/22 05:25 Patient resulted labs reviewed. Assessment/Plan Assessment and Plan Assess & Plan/Chief Complaint (1) Delirium Status: Acute Assessment & Plan: CT head without acute findings, suspected to be related to UTI/sepsis. Reorient, minimize meds as much as possible. (2) UTI (urinary tract infection) due to urinary indwelling catheter Status: Acute Assessment & Plan: See sepsis diagnosis. Qualifiers: Qualified Codes: T83.510A - Infection and inflammatory reaction due to cystostomy catheter, initial encounter; N39.0 - Urinary tract infection, site not specified (3) Sepsis Status: Acute Assessment & Plan: Suspected to be secondary to UTI. Started on ceftriaxone based on previous results. Lactic acid initially and no end organ damage at admission. Qualifiers: Qualified Codes: A41.9 - Sepsis, unspecified organism (4) Acute respiratory failure Status: Acute Assessment & Plan: Moved to ICU, able to be weaned back to 5 lpm nasal cannula, ABG, BNP, CXR pending. Hold IVF. Flu and COVID swabs negative on admit. Qualifiers: Qualified Codes: J96.01 - Acute respiratory failure with hypoxia (5) Hypertension Status: Chronic Assessment & Plan: Resume home meds when needed. Qualifiers: Qualified Codes: I10 - Essential (primary) hypertension (6) COPD (chronic obstructive pulmonary disease) Status: Chronic Assessment & Plan: RT, duonebs. (7) Insulin dependent diabetes mellitus Status: Chronic Assessment & Plan: Sliding scale insulin. Diabetic diet when stable for PO intake. (8) Anemia Status: Chronic Qualifiers: Qualified Codes: D63.0 - Anemia in neoplastic disease (9) Hyponatremia Status: Acute (10) Prostate cancer metastatic to multiple sites Status: Chronic (11) DVT prophylaxis Status: Acute Assessment & Plan: Enoxaparin ROS ZIMMER DO Jun 07, 2022 07:43
[2022-06-07] MEDS: LORazepam 0.5 MG (ATIVAN) TABLET PO PRN (08:48)
[2022-06-07] MEDS: NYSTATIN ORAL SUSP 5 ML UDC PO SCH ×4 (08:49→20:08)
[2022-06-07] MEDS: amLODIPine 5 MG (NORVASC) TAB PO SCH (08:49)
[2022-06-07] MEDS: meTOprolol TARTRATE 50 MG (LOPRESSOR) TAB PO SCH ×2 (08:49→17:04)
[2022-06-07] MEDS: polyethylene glycoL POWDER 17 GM (MIRALAX) PACK PO SCH (08:49)
[2022-06-07] MEDS: OXYBUTYNIN (DITROPAN) 5 MG TAB PO SCH ×2 (08:49→20:08)
[2022-06-07] MEDS: ENOXAPARIN 40 MG/0.4 ML (LOVENOX) SYR SQ SCH (08:49)
[2022-06-07] MEDS: SENNA W/DOCUSATE (SENOKOT S) TABLET PO SCH ×2 (08:49→20:08)
[2022-06-07] MEDS: MICONAZOLE NITRATE 2% CRM 30 GM TP SCH ×2 (08:50→22:13)
[2022-06-07] MEDS: GABAPENTIN 600 MG (NEURONTIN) TAB PO SCH ×3 (08:58→20:02)
[2022-06-07] MEDS: SERTRALINE 100 MG (ZOLOFT) TAB PO SCH (08:59)
[2022-06-07] MEDS: HALOPERIDOL 5 MG/ML (HALDOL) VIAL IM PRN ×2 (10:37→20:11)
[2022-06-07 11:12] VITALS: BP 159/74
[2022-06-07] MEDS ORDERED: LORazepam INJ 2 MG/ML (ATIVAN) VIAL IM PRN (11:30)
[2022-06-07] MEDS ORDERED: diphenhydrAMINE 50 MG/ML INJ (BENADRYL) IM PRN (11:30)
[2022-06-07] MEDS ORDERED: HYDROmorphone 2 MG/ML VIAL (DILAUDID) IM PRN (11:30)
[2022-06-07] MEDS: CEFDINIR 300 MG (OMNICEF) CAP PO SCH ×2 (11:43→20:07)
[2022-06-07 15:50] VITALS: BP 167/92
[2022-06-07 19:51] VITALS: BP 179/76
[2022-06-07] MEDS: MIRTAZAPINE 15 MG (REMERON) TAB PO SCH (20:02)
[2022-06-07] MEDS: MELATONIN 10 MG TABLET PO SCH (20:02)
[2022-06-08] VITALS (7 sets, daily range): BP systolic 99–174; BP diastolic 60–93
[2022-06-08] MEDS: HALOPERIDOL 5 MG/ML (HALDOL) VIAL IM PRN ×2 (03:07→13:50)
[2022-06-08 05:53] LABS: BASOPHILS # (AUTO) 0.1 10^3/uL (0.0-0.1); BASOPHILS % (AUTO) 1 % (0-10); EOSINOPHILS # (AUTO) 0.4 10^3/uL (0.0-0.3); EOSINOPHILS % (AUTO) 5 % (0-10); HEMATOCRIT 32 % (40-54); HEMOGLOBIN 9.7 g/dL (13.3-17.7); LYMPHOCYTES # (AUTO) 1.5 10^3/uL (1.0-4.0); LYMPHOCYTES % (AUTO) 17 % (12-44); MEAN CORPUSCULAR HEMOGLOBIN 25 pg (25-34); MEAN CORPUSCULAR HGB CONC 31 g/dL (32-36); MEAN CORPUSCULAR VOLUME 82 fL (80-99); MEAN PLATELET VOLUME 11.3 fL (9.0-12.2); MONOCYTES # (AUTO) 0.5 10^3/uL (0.0-1.0); MONOCYTES % (AUTO) 5 % (0-12); NEUTROPHILS # (AUTO) 6.4 10^3/uL (1.8-7.8); NEUTROPHILS % (AUTO) 72 % (42-75); PLATELET COUNT 253 10^3/uL (130-400); WHITE BLOOD COUNT 8.8 10^3/uL (4.3-11.0)
[2022-06-08 06:16] LABS: BILIRUBIN,TOTAL 0.3 MG/DL (0.1-1.0); CALCIUM 9.1 MG/DL (8.5-10.1); POTASSIUM 3.7 MMOL/L (3.6-5.0); TOTAL PROTEIN 8.1 GM/DL (6.4-8.2)
[2022-06-08] MEDS: LEVOTHYROXINE 50 MCG (LEVOTHROID) TAB PO SCH (06:32)
[2022-06-08] MEDS: PANTOPRAZOLE 40 MG (PROTONIX) TAB PO SCH (06:33)
[2022-06-08] MEDS: morphine ER 15 MG (MS CONTIN) TAB PO SCH ×3 (06:33→22:31)
[2022-06-08] MEDS: inSUlin ASPART (NovoLOG) 1 UNIT/0.01 ML (CHARGE PER UNIT) SC SCH ×4 (06:34→22:37)
[2022-06-08] MEDS: CALCIUM CARBONATE 500 MG (TUMS) TAB.CHEW PO SCH ×4 (06:34→22:41)
[2022-06-08] MEDS: GABAPENTIN 600 MG (NEURONTIN) TAB PO SCH ×3 (08:58→22:19)
[2022-06-08] MEDS: SERTRALINE 100 MG (ZOLOFT) TAB PO SCH (08:58)
[2022-06-08] MEDS: SENNA W/DOCUSATE (SENOKOT S) TABLET PO SCH ×2 (08:58→22:19)
[2022-06-08] MEDS: OXYBUTYNIN (DITROPAN) 5 MG TAB PO SCH ×2 (08:58→22:37)
[2022-06-08] MEDS: CEFDINIR 300 MG (OMNICEF) CAP PO SCH ×2 (08:58→22:43)
[2022-06-08] MEDS: meTOprolol TARTRATE 50 MG (LOPRESSOR) TAB PO SCH ×2 (08:58→18:17)
[2022-06-08] MEDS: amLODIPine 5 MG (NORVASC) TAB PO SCH (08:58)
[2022-06-08] MEDS: NYSTATIN ORAL SUSP 5 ML UDC PO SCH ×4 (08:59→22:41)
[2022-06-08] MEDS: ENOXAPARIN 40 MG/0.4 ML (LOVENOX) SYR SQ SCH (08:59)
[2022-06-08] MEDS: MICONAZOLE NITRATE 2% CRM 30 GM TP SCH ×2 (09:00→22:40)
[2022-06-08] MEDS: polyethylene glycoL POWDER 17 GM (MIRALAX) PACK PO SCH (09:00)
[2022-06-08] MEDS ORDERED: cloNIDine 0.1 MG PATCH (CATAPRES TTS) TDSY TD SCH (09:45)
--- NOTE | 2022-06-08 11:15 | Progress Note - Hospitalist ---
MARGIE VELEZ 06/08/22 1115: Subjective HPI/CC On Admission Date Seen by Provider: Jun 08, 2022 Time Seen by Provider: 09:30 Subjective/Events-last exam Pt had aggressive behavior yesterday (06/07), yelling and threatening staff. He was given several medications to help him relax including haldol, valium, sertraline, and ativan. Per riverboat captain the remainder of his night was okay. This morning patient was drowsy, but answered yes and no questions. He is eating and drinking normally, and had one BM today. Denies SOB, fever, chills, N/V, and chest pain. Review of Systems General: No Chills HEENT: No Head Aches Pulmonary: No Dyspnea Cardiovascular: No: Chest Pain, Orthopnea Gastrointestinal: No: Nausea, Vomiting, Abdominal Pain Genitourinary: No Retention Neurological: Other (drowsy ) Objective Exam Vital Signs Vital Signs Date Time Temp Pulse Resp B/P (MAP) Pulse Ox O2 Delivery O2 Flow Rate FiO2 06/08/22 11:00 36.2 73 17 99/60 (73) 95 Room Air 06/06/22 18:46 0.00 06/05/22 16:00 97 Capillary Refill : Less Than 3 Seconds General Appearance: No Apparent Distress, WD/WN, Other (Pt is drowsy and only answers yes or no questions. ) HEENT: PERRL/EOMI, Moist Mucous Membranes Neck: Non Tender, Supple Respiratory: Chest Non Tender, Lungs Clear, Normal Breath Sounds, No Accessory Muscle Use, No Respiratory Distress Cardiovascular: Regular Rate, Rhythm, No Edema, No Gallop, No JVD, No Murmur Gastrointestinal: Normal Bowel Sounds, Non Tender, Soft Back: No CVA Tenderness Extremity: Non Tender, No Calf Tenderness, No Pedal Edema Neurologic/Psychiatric: Alert, No Motor/Sensory Deficits, Other (Oriented to person only) Skin: Warm/Dry, Other (venous stasis dermatitis to bilateral LE) Results/Procedures Lab Laboratory Tests 06/08/22 05:25 Patient resulted labs reviewed. Assessment/Plan Assessment and Plan Assess & Plan/Chief Complaint Assessment: Delirium Methamphetamine abuse UTI - cefdinir (300 mg BID) Sepsis - white count trending down Acute Respiratory Failure - oxygenating at 97% on RA COPD HTN - clonidine (0.1 mg) Insulin dependent DM Metastatic prostate cancer Plan: Continue supportive care. Monitor closely. ELHAM STORM DO 06/09/22 0523: Subjective Subjective/Events-last exam Eating and drinking when awake Large BM this morning Objective Exam General Appearance: No Apparent Distress, WD/WN, Chronically ill, Obese Respiratory: Lungs Clear Cardiovascular: Regular Rate, Rhythm Assessment/Plan Assessment and Plan Assess & Plan/Chief Complaint Increase po fluids Psych treatment Supervisory-Addendum Brief Verification & Attestation Participated in pt care: history, MDM, physical Personally performed: exam, history, MDM, supervision of care Care discussed with: Medical Student Procedures: n/a Results interpretation: Verified all documentation Verification and Attestation of Medical Student E/M Service A medical student performed and documented this service in my presence. I reviewed and verified all information documented by the medical student and made modifications to such information, when appropriate. I personally performed the physical exam and medical decision making. Elham Storm, Jun 09, 2022,05:22 MARGIE VELEZ Jun 08, 2022 11:15 ELHAM STORM DO Jun 09, 2022 05:23
[2022-06-08] MEDS: MELATONIN 10 MG TABLET PO SCH (22:19)
[2022-06-08] MEDS: MIRTAZAPINE 15 MG (REMERON) TAB PO SCH (22:19)
[2022-06-09 00:06] VITALS: BP 144/68
[2022-06-09 03:54] VITALS: BP 152/77
[2022-06-09 05:53] LABS: BASOPHILS # (AUTO) 0.1 10^3/uL (0.0-0.1); BASOPHILS % (AUTO) 1 % (0-10); EOSINOPHILS # (AUTO) 0.4 10^3/uL (0.0-0.3); EOSINOPHILS % (AUTO) 6 % (0-10); HEMATOCRIT 29 % (40-54); HEMOGLOBIN 8.8 g/dL (13.3-17.7); LYMPHOCYTES # (AUTO) 1.5 10^3/uL (1.0-4.0); LYMPHOCYTES % (AUTO) 20 % (12-44); MEAN CORPUSCULAR HEMOGLOBIN 25 pg (25-34); MEAN CORPUSCULAR HGB CONC 30 g/dL (32-36); MEAN CORPUSCULAR VOLUME 83 fL (80-99); MEAN PLATELET VOLUME 9.9 fL (9.0-12.2); MONOCYTES # (AUTO) 0.5 10^3/uL (0.0-1.0); MONOCYTES % (AUTO) 7 % (0-12); NEUTROPHILS # (AUTO) 4.9 10^3/uL (1.8-7.8); NEUTROPHILS % (AUTO) 66 % (42-75); PLATELET COUNT 246 10^3/uL (130-400); WHITE BLOOD COUNT 7.4 10^3/uL (4.3-11.0)
[2022-06-09 06:01] LABS: ALBUMIN 2.6 GM/DL (3.2-4.5)
[2022-06-09 06:02] LABS: POTASSIUM 3.7 MMOL/L (3.6-5.0)
[2022-06-09 06:03] LABS: CALCIUM 8.6 MG/DL (8.5-10.1)
[2022-06-09 06:04] LABS: TOTAL PROTEIN 7.1 GM/DL (6.4-8.2)
[2022-06-09 06:06] LABS: BILIRUBIN,TOTAL 0.2 MG/DL (0.1-1.0)
[2022-06-09 06:08] LABS: CREATININE SERUM 0.83 MG/DL (0.60-1.30)
[2022-06-09] MEDS: morphine ER 15 MG (MS CONTIN) TAB PO SCH ×3 (06:25→22:15)
[2022-06-09] MEDS: CALCIUM CARBONATE 500 MG (TUMS) TAB.CHEW PO SCH ×4 (06:25→22:21)
[2022-06-09] MEDS: inSUlin ASPART (NovoLOG) 1 UNIT/0.01 ML (CHARGE PER UNIT) SC SCH ×4 (06:26→22:38)
[2022-06-09] MEDS: LEVOTHYROXINE 50 MCG (LEVOTHROID) TAB PO SCH (06:26)
[2022-06-09] MEDS: PANTOPRAZOLE 40 MG (PROTONIX) TAB PO SCH ×2 (06:26→10:09)
[2022-06-09 07:21] VITALS: BP 137/81
[2022-06-09] MEDS ORDERED: TRIM/SULFAMETH 160/800 (SEPTRA DS) TAB PO NR (09:30)
[2022-06-09] MEDS: meTOprolol TARTRATE 50 MG (LOPRESSOR) TAB PO SCH ×2 (10:09→17:10)
[2022-06-09] MEDS: polyethylene glycoL POWDER 17 GM (MIRALAX) PACK PO SCH (10:09)
[2022-06-09] MEDS: SERTRALINE 100 MG (ZOLOFT) TAB PO SCH (10:10)
[2022-06-09] MEDS: OXYBUTYNIN (DITROPAN) 5 MG TAB PO SCH ×2 (10:10→22:05)
[2022-06-09] MEDS: SENNA W/DOCUSATE (SENOKOT S) TABLET PO SCH ×2 (10:10→22:11)
[2022-06-09] MEDS: ENOXAPARIN 40 MG/0.4 ML (LOVENOX) SYR SQ SCH (10:13)
[2022-06-09] MEDS: GABAPENTIN 600 MG (NEURONTIN) TAB PO SCH ×3 (10:14→22:04)
[2022-06-09] MEDS: MICONAZOLE NITRATE 2% CRM 30 GM TP SCH ×2 (10:14→22:37)
[2022-06-09] MEDS: NYSTATIN ORAL SUSP 5 ML UDC PO SCH ×4 (10:14→22:20)
[2022-06-09] MEDS: amLODIPine 5 MG (NORVASC) TAB PO SCH (10:14)
[2022-06-09 11:32] VITALS: BP 150/78
--- NOTE | 2022-06-09 11:57 | Progress Note - Hospitalist ---
MARGIE VELEZ 06/09/22 1157: Subjective HPI/CC On Admission Date Seen by Provider: Jun 09, 2022 Time Seen by Provider: 09:15 Subjective/Events-last exam Pt sleeping upon entering room According to nurse, [facility] was at bedside for eval this AM Had a bowel movement last night and ate some Urine culture sensitivity resulted today, will adjust abx Hospital Course: Mr. Lozano, 62 YO male with hx of methamphetamine use, cardiomyopathy with EF 40-45%, and indwelling suprapubic catheter was admitted to ICU (06/05/22) from ED for catheter associated UTI, dehydration, and AMS. He is resident at [facility], where they reported increased confusion from baseline. In the ED he was found to have significantly elevated white count and O2 saturation of 70%, once on floor he was placed on a non-rebreather oxygenating at 100%. He was started on ceftriaxone for UTI while awaiting cultures. He was moved to the floor on 06/06 and placed on Cefdinir 300 mg BID, with adequate oxygenation on room air. During his stay he has had several bouts confusion, aggression, and agitation requiring antipsychotics. He is able to answer yes or no questions but otherwise has slept. Urine sensitivity resulted this morning (06/09), so changed his abx to Bactrim. Pt is likely a candidate for [facility]. Will continue to monitor in the meantime. Review of Systems General: No Night Sweats HEENT: No Head Aches Pulmonary: No Dyspnea, No Cough Cardiovascular: No: Chest Pain Gastrointestinal: No: Nausea, Vomiting, Abdominal Pain Genitourinary: No Retention Objective Exam Vital Signs Vital Signs Date Time Temp Pulse Resp B/P (MAP) Pulse Ox O2 Delivery O2 Flow Rate FiO2 06/09/22 11:32 36.1 67 20 150/78 (102) 98 Nasal Cannula 3.00 06/05/22 16:00 97 Capillary Refill : Less Than 3 Seconds General Appearance: No Apparent Distress, Chronically ill, Other (Sleeping throughout exam. ) HEENT: Pharynx Normal, Moist Mucous Membranes Neck: Non Tender, Supple Respiratory: Lungs Clear, Normal Breath Sounds, No Accessory Muscle Use, No Respiratory Distress Cardiovascular: Regular Rate, Rhythm, No Gallop, No JVD, No Murmur, Normal Peripheral Pulses Gastrointestinal: Normal Bowel Sounds, Non Tender, Soft Back: No CVA Tenderness Extremity: Non Tender, No Calf Tenderness, No Pedal Edema Neurologic/Psychiatric: Other (Drowsy. Answers yes or no questions. Oriented to self. ) Skin: Normal Color, Warm/Dry, Rash (Chronic venous stasis dermatitis ) Lymphatic: No Adenopathy Results/Procedures Lab Laboratory Tests 06/09/22 05:30 Patient resulted labs reviewed. Assessment/Plan Assessment and Plan Assess & Plan/Chief Complaint Assessment: Delirium Methamphetamine abuse UTI - culture sensitivity resulted this morning, changed abx to bactrim Sepsis - white count back within normal limits Acute Respiratory Failure - oxygenating at 98% on RA COPD HTN - clonidine (0.1 mg) Insulin dependent DM Metastatic prostate cancer Plan: Continue supportive care. Po fluids Antipsychotic therapy Will likely go to [facility] ELHAM STORM DO 06/10/22 0555: Assessment/Plan Assessment and Plan Assess & Plan/Chief Complaint Await Michelle psych disposition Supervisory-Addendum Brief Verification & Attestation Participated in pt care: history, MDM, physical Personally performed: exam, history, MDM, supervision of care Care discussed with: Medical Student Procedures: n/a Results interpretation: Verified all documentation Verification and Attestation of Medical Student E/M Service A medical student performed and documented this service in my presence. I reviewed and verified all information documented by the medical student and made modifications to such information, when appropriate. I personally performed the physical exam and medical decision making. Elham Storm Jun 10, 2022,05:54 MARGIE VELEZ Jun 09, 2022 11:57 ELHAM STORM DO Jun 10, 2022 05:55
[2022-06-09 15:30] VITALS: BP 155/88
[2022-06-09] MEDS ORDERED: TRIM/SULFAMETH 160/800 (SEPTRA DS) TAB PO SCH (18:00)
[2022-06-09] MEDS: MIRTAZAPINE 15 MG (REMERON) TAB PO SCH (22:13)
[2022-06-09] MEDS: MELATONIN 10 MG TABLET PO SCH (22:13)
[2022-06-09] MEDS: LORazepam 0.5 MG (ATIVAN) TABLET PO PRN (22:18)
[2022-06-10 04:00] VITALS: BP 142/82
[2022-06-10] MEDS: CALCIUM CARBONATE 500 MG (TUMS) TAB.CHEW PO SCH ×2 (06:04→09:45)
[2022-06-10] MEDS: LEVOTHYROXINE 50 MCG (LEVOTHROID) TAB PO SCH ×2 (06:05→09:45)
[2022-06-10] MEDS: morphine ER 15 MG (MS CONTIN) TAB PO SCH ×2 (06:06→09:45)
[2022-06-10] MEDS: inSUlin ASPART (NovoLOG) 1 UNIT/0.01 ML (CHARGE PER UNIT) SC SCH ×2 (06:07→11:18)
[2022-06-10] MEDS ORDERED: CLON1PAT33 TD (06:51)
--- NOTE | 2022-06-10 06:52 | Discharge Summary ---
Diagnosis/Chief Complaint Date of Admission Jun 05, 2022 at 00:27 Date of Discharge Discharge Date: Jun 10, 2022 Discharge Diagnosis Assessment: Delirium Methamphetamine abuse UTI - culture sensitivity resulted this morning, changed abx to bactrim Sepsis - white count back within normal limits Acute Respiratory Failure - oxygenating at 98% on RA COPD HTN - clonidine (0.1 mg) Insulin dependent DM Metastatic prostate cancer Plan: Continue supportive care. Po fluids Antipsychotic therapy Will likely go to [facility] Discharge Summary Discharge Physical Examination Allergies: Coded Allergies: hydrocodone (Unverified Allergy, Unknown, hives, 02/08/19) aspirin (Unverified Adverse Reaction, Unknown, angioedema, 02/08/19) lisinopril (Unverified Adverse Reaction, Unknown, angioedema, 02/08/19) Vitals & I&Os Vital Signs Date Time Temp Pulse Resp B/P (MAP) Pulse Ox O2 Delivery O2 Flow Rate FiO2 06/10/22 12:44 35.8 82 18 158/79 96 Room Air 06/10/22 04:00 3.00 06/05/22 16:00 97 General Appearance: Alert, Cooperative Respiratory: Clear to Auscultation Cardiovascular: Regular Rate Hospital Course Was the Problem List Reviewed?: Yes Hospital Course: Mr. Lozano, 62 YO male with hx of methamphetamine use, cardiomyopathy with EF 40-45%, and indwelling suprapubic catheter was admitted to ICU (06/05/22) from ED for catheter associated UTI, dehydration, and AMS. He is resident at [facility], where they reported increased confusion from baseline. In the ED he was found to have significantly elevated white count and O2 saturation of 70%, once on floor he was placed on a non-rebreather oxygenating at 100%. He was started on ceftriaxone for UTI while awaiting cultures. He was moved to the floor on 06/06 and placed on Cefdinir 300 mg BID, with adequate oxygenation on room air. During his stay he has had several bouts confusion, aggression, and agitation requiring antipsychotics. He is able to answer yes or no questions but otherwise has slept. Urine sensitivity resulted this morning (06/09), so changed his abx to Bactrim. Pt is likely a candidate for [facility]. Will continue to monitor in the meantime. Labs (last 24 hrs) Laboratory Tests 06/04/22 21:17: Urine Color YELLOW, Urine Clarity SL CLOUDY, Urine pH 5.5, Urine Specific [place] 1.025H, Urine Protein 2+H, Urine Glucose (UA) NEGATIVE, Urine Ketones NEGATIVE, Urine Nitrite POSITIVEH, Urine Bilirubin NEGATIVE, Urine Urobilinogen 0.2, Urine Leukocyte Esterase 1+H, Urine RBC (Auto) 3+H, Urine RBC 0-2, Urine WBC 10-25H, Urine Squamous Epithelial Cells 0-2, Urine Crystals NONE, Urine Bacteria MODERATEH, Urine Casts PRESENT, Urine Hyaline Casts 0-2H, Urine Mucus SMALLH, Urine Culture Indicated YES 06/04/22 21:23: White Blood Count 17.0H, Red Blood Count 3.62L, Hemoglobin 9.2L, Hematocrit 29L, Mean Corpuscular Volume 81, Mean Corpuscular Hemoglobin 25, Mean Corpuscular Hemoglobin Concent 32, Red Cell Distribution Width 15.9H, Platelet Count 285, Mean Platelet Volume 9.1, Immature Granulocyte % (Auto) 0, Neutrophils (%) (Auto) 84H, Lymphocytes (%) (Auto) 9L, Monocytes (%) (Auto) 5, Eosinophils (%) (Auto) 1, Basophils (%) (Auto) 0, Neutrophils # (Auto) 14.3H, Lymphocytes # (Auto) 1.5, Monocytes # (Auto) 0.8, Eosinophils # (Auto) 0.2, Basophils # (Auto) 0.1, Immature Granulocyte # (Auto) 0.1, Neutrophils % (Manual) 85, Lymphocytes % (Manual) 8, Monocytes % (Manual) 3, Eosinophils % (Manual) 2, Basophils % (Manual) 1, Band Neutrophils 1, Hypochromasia SLIGHT, Poikilocytosis SLIGHT, Anisocytosis SLIGHT, Sodium Level 131L, Potassium Level 4.4, Chloride Level 93L, Carbon Dioxide Level 27, Anion Gap 11, Blood Urea Nitrogen 22H, Creatinine 1.18, Estimat Glomerular Filtration Rate 69, BUN/Creatinine Ratio 19, Glucose Level 167H, Lactic Acid Level 1.00, Calcium Level 8.3L, Corrected Calcium 9.3, Total Bilirubin 0.4, Aspartate Amino Transf (AST/SGOT) 13, Alanine Aminotransferase (ALT/SGPT) 6, Alkaline Phosphatase 179H, C-Reactive Protein 16.50H, Total Protein 8.0, Albumin 2.8L 06/04/22 21:34: Influenza Type A (RT-PCR) Not Detected, Influenza Type B (RT-PCR) Not Detected, SARS-CoV-2 RNA (RT-PCR) Not Detected 06/05/22 06:24: Glucometer 127H 06/05/22 07:40: Blood Gas Puncture Site LT RADIAL, Blood Gas Patient Temperature 36.7, Arterial Blood pH 7.35L, Arterial Blood Partial Pressure CO2 52H, Arterial Blood Partial Pressure O2 245H, Arterial Blood HCO3 28H, Arterial Blood Total CO2 29.3, Arterial Blood Oxygen Saturation 100, Arterial Blood Base Excess 2.5, Yvan Test YES-POS, Blood Gas Ventilator Setting NO, Blood Gas Inspired Oxygen 15 06/05/22 08:01: White Blood Count 14.3H, Red Blood Count 3.46L, Hemoglobin 8.8L, Hematocrit 29L, Mean Corpuscular Volume 83, Mean Corpuscular Hemoglobin 25, Mean Corpuscular Hemoglobin Concent 31L, Red Cell Distribution Width 15.7H, Platelet Count 231, Mean Platelet Volume 10.0, Immature Granulocyte % (Auto) 1, Neutrophils (%) (Aut o) 87H, Lymphocytes (%) (Auto) 6L, Monocytes (%) (Auto) 5, Eosinophils (%) (Auto) 1, Basophils (%) (Auto) 0, Neutrophils # (Auto) 12.5H, Lymphocytes # (Auto) 0.9L, Monocytes # (Auto) 0.8, Eosinophils # (Auto) 0.1, Basophils # (Auto) 0.1, Immature Granulocyte # (Auto) 0.1, D-Dimer 2.04H, Sodium Level 133L, Potassium Level 4.1, Chloride Level 99, Carbon Dioxide Level 25, Anion Gap 9, B lood Urea Nitrogen 22H, Creatinine 1.17, Estimat Glomerular Filtration Rate 70, BUN/Creatinine Ratio 19, Glucose Level 158H, Lactic Acid Level 0.83, Calcium Level 8.4L, Corrected Calcium 9.4, Total Bilirubin 0.3, Aspartate Amino Transf (AST/SGOT) 13, Alanine Aminotransferase (ALT/SGPT) 6, Alkaline Phosphatase 142H, Troponin I < 0.028, B-Type Natriuretic Peptide 726.0H, Total Protein 7.9, Albumin 2.8L 06/05/22 12:54: Glucometer 119H 06/05/22 18:32: Glucometer 138H 06/05/22 23:09: Glucometer 136H 06/06/22 04:03: White Blood Count 11.4H, Red Blood Count 2.99L, Hemoglobin 7.8L, Hematocrit 24L, Mean Corpuscular Volume 82, Mean Corpuscular Hemoglobin 26, Mean Corpuscular Hemoglobin Concent 32, Red Cell Distribution Width 15.7H, Platelet Count 271, Mean Platelet Volume 9.9, Sodium Level 134L, Potassium Level 4.0, Chloride Level 100, Carbon Dioxide Level 23, Anion Gap 11, Blood Urea Nitrogen 18, Creatinine 0.98, Estimat Glomerular Filtration Rate 87, BUN/Creatinine Ratio 18, Glucose Level 150H, Calcium Level 8.5, Magnesium Level 1.7 06/06/22 20:54: Glucometer 106 06/07/22 05:23: Glucometer 121H 06/07/22 05:25: White Blood Count 8.4, Red Blood Count 3.20L, Hemoglobin 8.1L, Hematocrit 26L, Mean Corpuscular Volume 81, Mean Corpuscular Hemoglobin 25, Mean Corpuscular Hemoglobin Concent 31L, Red Cell Distribution Width 15.7H, Platelet Count 285, Mean Platelet Volume 9.1, Immature Granulocyte % (Auto) 1, Neutrophils (%) (Auto) 78H, Lymphocytes (%) (Auto) 11L, Monocytes (%) (Auto) 6, Eosinophils (%) (Auto) 4, Basophils (%) (Auto) 1, Neutrophils # (Auto) 6.6, Lymphocytes # (Auto) 0.9L, Monocytes # (Auto) 0.5, Eosinophils # (Auto) 0.3, Basophils # (Auto) 0.1, Immature Granulocyte # (Auto) 0.0, Sodium Level 138, Potassium Level 3.5L, Chloride Level 103, Carbon Dioxide Level 24, Anion Gap 11, Blood Urea Nitrogen 12, Creatinine 0.84, Estimat Glomerular Filtration Rate 98, BUN/Creatinine Ratio 14, Glucose Level 117H, Calcium Level 8.7, Corrected Calcium 9.7, Total Bilirubin 0.2, Aspartate Amino Transf (AST/SGOT) 16, Alanine Aminotransferase (ALT/SGPT) 8, Alkaline Phosphatase 127, Total Protein 7.6, Albumin 2.8L 06/07/22 10:18: Glucometer 101 06/07/22 16:10: Glucometer 105 06/07/22 20:13: Glucometer 115H 06/08/22 05:05: Glucometer 107 06/08/22 05:25: White Blood Count 8.8, Red Blood Count 3.86L, Hemoglobin 9.7L, Hematocrit 32L, Mean Corpuscular Volume 82, Mean Corpuscular Hemoglobin 25, Mean Corpuscular Hemoglobin Concent 31L, Red Cell Distribution Width 15.9H, Platelet Count 253, Mean Platelet Volume 11.3, Immature Granulocyte % (Auto) 1, Neutrophils (%) (Auto) 72, Lymphocytes (%) (Auto) 17, Monocytes (%) (Auto) 5, Eosinophils (%) (Auto) 5, Basophils (%) (Auto) 1, Neutrophils # (Auto) 6.4, Lymphocytes # (Auto) 1.5, Monocytes # (Auto) 0.5, Eosinophils # (Auto) 0.4H, Basophils # (Auto) 0.1, Immature Granulocyte # (Auto) 0.1, Sodium Level 140, Potassium Level 3.7, Chloride Level 104, Carbon Dioxide Level 22, Anion Gap 14, Blood Urea Nitrogen 11, Creatinine 1.00, Estimat Glomerular Filtration Rate 85, BUN/Creatinine Ratio 11, Glucose Level 109H, Calcium Level 9.1, Corrected Calcium 9.9, Total Bilirubin 0.3, Aspartate Amino Transf (AST/SGOT) 25, Alanine Aminotransferase (ALT/SGPT) 13, Alkaline Phosphatase 128, Total Protein 8.1, Albumin 3.0L 06/08/22 10:57: Glucometer 189H 06/08/22 15:58: Glucometer 122H 06/08/22 20:39: Glucometer 96 06/09/22 05:29: Glucometer 73 06/09/22 05:30: White Blood Count 7.4, Red Blood Count 3.47L, Hemoglobin 8.8L, Hematocrit 29L, Mean Corpuscular Volume 83, Mean Corpuscular Hemoglobin 25, Mean Corpuscular Hemoglobin Concent 30L, Red Cell Distribution Width 15.9H, Platelet Count 246, Mean Platelet Volume 9.9, Immature Granulocyte % (Auto) 1, Neutrophils (%) (Auto) 66, Lymphocytes (%) (Auto) 20, Monocytes (%) (Auto) 7, Eosinophils (%) (Auto) 6, Basophils (%) (Auto) 1, Neutrophils # (Auto) 4.9, Lymphocytes # (Auto) 1.5, Monocytes # (Auto) 0.5, Eosinophils # (Auto) 0.4H, Basophils # (Auto) 0.1, Immature Granulocyte # (Auto) 0.0, Sodium Level 138, Potassium Level 3.7, Chloride Level 106, Carbon Dioxide Level 22, Anion Gap 10, Blood Urea Nitrogen 12, Creatinine 0.83, Estimat Glomerular Filtration Rate 98, BUN/Creatinine Ratio 14, Glucose Level 73, Calcium Level 8.6, Corrected Calcium 9.7, Total Bilirubin 0.2, Aspartate Amino Transf (AST/SGOT) 20, Alanine Aminotransferase (ALT/SGPT) 9, Alkaline Phosphatase 117, Total Protein 7.1, Albumin 2.6L 06/09/22 10:51: Glucometer 116H 06/09/22 15:36: Glucometer 121H 06/09/22 22:33: Glucometer 148H 06/10/22 08:25: Influenza Type A (RT-PCR) Not Detected, Influenza Type B (RT-PCR) Not Detected, SARS-CoV-2 RNA (RT-PCR) Not Detected Microbiology 06/04/22 Blood Culture - Preliminary, Resulted No growth 06/04/22 Urine Culture - Final, Complete Providencia stuartii Staphylococcus aureus Pending Labs Microbiology Date/Time Source Procedure Growth Status 06/04/22 21:28 Peripheral Rt Ac Blood Culture - Preliminary No growth Resulted 06/04/22 21:23 Peripheral Rt Ac Blood Culture - Preliminary No growth Resulted 06/04/22 21:17 Urine Suprapubic Catheter Urine Culture - Final Providencia stuartii Staphylococcus aureus Complete Laboratory Tests 06/04/22 21:17: Urine Color YELLOW, Urine Clarity SL CLOUDY, Urine pH 5.5, Urine Specific [place] 1.025, Urine Protein 2+, Urine Glucose (UA) NEGATIVE, Urine Ketones N EGATIVE, Urine Nitrite POSITIVE, Urine Bilirubin NEGATIVE, Urine Urobilinogen 0.2, Urine Leukocyte Esterase 1+, Urine RBC (Auto) 3+, Urine RBC 0-2, Urine WBC 10-25, Urine Squamous Epithelial Cells 0-2, Urine Crystals NONE, Urine Bacteria MODERATE, Urine Casts PRESENT, Urine Hyaline Casts 0-2, Urine Mucus SMALL, Urine Culture Indicated YES 06/04/22 21:23: White Blood Count 17.0, Red Blood Count 3.62, Hemoglobin 9.2, Hematocrit 29, Mean Corpuscular Volume 81, Mean Corpuscular Hemoglobin 25, Mean Corpuscular Hemoglobin Concent 32, Red Cell Distribution Width 15.9, Platelet Count 285, Mean Platelet Volume 9.1, Immature Granulocyte % (Auto) 0, Neutrophils (%) (Auto) 84, Lymphocytes (%) (Auto) 9, Monocytes (%) (Auto) 5, Eosinophils (%) (Auto) 1, Basophils (%) (Auto) 0, Neutrophils # (Auto) 14.3, Lymphocytes # (Auto) 1.5, Monocytes # (Auto) 0.8, Eosinophils # (Auto) 0.2, Basophils # (Auto) 0.1, Immature Granulocyte # (Auto) 0.1, Neutrophils % (Manual) 85, Lymphocytes % (Manual) 8, Monocytes % (Manual) 3, Eosinophils % (Manual) 2, Basophils % (Manual) 1, Band Neutrophils 1, Hypochromasia SLIGHT, Poikilocytosis SLIGHT, An isocytosis SLIGHT, Sodium Level 131, Potassium Level 4.4, Chloride Level 93, Carbon Dioxide Level 27, Anion Gap 11, Blood Urea Nitrogen 22, Creatinine 1.18, Estimat Glomerular Filtration Rate 69, BUN/Creatinine Ratio 19, Glucose Level 167, Lactic Acid Level 1.00, Calcium Level 8.3, Corrected Calcium 9.3, Total Bilirubin 0.4, Aspartate Amino Transf (AST/SGOT) 13, Alanine Aminotransferase (ALT/SGPT) 6, Alkaline Phosphatase 179, C-Reactive Protein 16.50, Total Protein 8.0, Albumin 2.8 06/04/22 21:34: Influenza Type A (RT-PCR) Not Detected, Influenza Type B (RT-PCR) Not Detected, SARS-CoV-2 RNA (RT-PCR) Not Detected 06/05/22 06:24: Glucometer 127 06/05/22 07:40: Blood Gas Puncture Site LT RADIAL, Blood Gas Patient Temperature 36.7, Arterial Blood pH 7.35, Arterial Blood Partial Pressure CO2 52, Arterial Blood Partial Pressure O2 245, Arterial Blood HCO3 28, Arterial Blood Total CO2 29.3, Arterial Blood Oxygen Saturation 100, Arterial Blood Base Excess 2.5, Yvan Test YES-POS, Blood Gas Ventilator Setting NO, Blood Gas Inspired Oxygen 15 10/14/22 08:01: White Blood Count 14.3, Red Blood Count 3.46, Hemoglobin 8.8, Hematocrit 29, Mean Corpuscular Volume 83, Mean Corpuscular Hemoglobin 25, Mean Corpuscular Hemoglobin Concent 31, Red Cell Distribution Width 15.7, Platelet Count 231, Mean Platelet Volume 10.0, Immature Granulocyte % (Auto) 1, Neutrophils (%) (Auto) 87, Lymphocytes (%) (Auto) 6, Monocytes (%) (Auto) 5, Eosinophils (%) (Auto) 1, Basophils (%) (Auto) 0, Neutrophils # (Auto) 12.5, Lymphocytes # (Auto) 0.9, Monocytes # (Auto) 0.8, Eosinophils # (Auto) 0.1, Basophils # (Auto) 0.1, Immature Granulocyte # (Auto) 0.1, D-Dimer 2.04, Sodium Level 133, Potassium Level 4.1, Chloride Level 99, Carbon Dioxide Level 25, Anion Gap 9, Blood Urea Nitrogen 22, Creatinine 1.17, Estimat Glomerular Filtration Rate 70, BUN/Creatinine Ratio 19, Glucose Level 158, Lactic Acid Level 0.83, Calcium Level 8.4, Corrected Calcium 9.4, Total Bilirubin 0.3, Aspartate Amino Transf (AST/SGOT) 13, Alanine Aminotransferase (ALT/SGPT) 6, Alkaline Phosphatase 142, Troponin I < 0.028, B-Type Natriuretic Peptide 726.0, Total Protein 7.9, Albumin 2.8 06/05/22 12:54: Glucometer 119 06/05/22 18:32: Glucometer 138 06/05/22 23:09: Glucometer 136 06/06/22 04:03: White Blood Count 11.4, Red Blood Count 2.99, Hemoglobin 7.8, Hematocrit 24, Mean Corpuscular Volume 82, Mean Corpuscular Hemoglobin 26, Mean Corpuscular Hemoglobin Concent 32, Red Cell Distribution Width 15.7, Platelet Count 271, Mean Platelet Volume 9.9, Sodium Level 134, Potassium Level 4.0, Chloride Level 100, Carbon Dioxide Level 23, Anion Gap 11, Blood Urea Nitrogen 18, Creatinine 0.98, Estimat Glomerular Filtration Rate 87, BUN/Creatinine Ratio 18, Glucose Level 150, Calcium Level 8.5, Magnesium Level 1.7 06/06/22 20:54: Glucometer 106 06/07/22 05:23: Glucometer 121 06/07/22 05:25: White Blood Count 8.4, Red Blood Count 3.20, Hemoglobin 8.1, Hematocrit 26, Mean Corpuscular Volume 81, Mean Corpuscular Hemoglobin 25, Mean Corpuscular Hemoglobin Concent 31, Red Cell Distribution Width 15.7, Platelet Count 285, Patria n Platelet Volume 9.1, Immature Granulocyte % (Auto) 1, Neutrophils (%) (Auto) 78, Lymphocytes (%) (Auto) 11, Monocytes (%) (Auto) 6, Eosinophils (%) (Auto) 4, Basophils (%) (Auto) 1, Neutrophils # (Auto) 6.6, Lymphocytes # (Auto) 0.9, Monocytes # (Auto) 0.5, Eosinophils # (Auto) 0.3, Basophils # (Auto) 0.1, Immature Granulocyte # (Auto) 0.0, Sodium Level 138, Potassium Level 3.5, Chloride Level 103, Carbon Dioxide Level 24, Anion Gap 11, Blood Urea Nitrogen 12, Creatinine 0.84, Estimat Glomerular Filtration Rate 98, BUN/Creatinine Ratio 14, Glucose Level 117, Calcium Level 8.7, Corrected Calcium 9.7, Total Bilirubin 0.2, Aspartate Amino Transf (AST/SGOT) 16, Alanine Aminotransferase (ALT/SGPT) 8, Alkaline Phosphatase 127, Total Protein 7.6, Albumin 2.8 06/07/22 10:18: Glucometer 101 06/07/22 16:10: Glucometer 105 06/07/22 20:13: Glucometer 115 06/08/22 05:05: Glucometer 107 06/08/22 05:25: White Blood Count 8.8, Red Blood Count 3.86, Hemoglobin 9.7, Hematocrit 32, Mean Corpuscular Volume 82, Mean Corpuscular Hemoglobin 25, Mean Corpuscular Hemoglobin Concent 31, Red Cell Distribution Width 15.9, Platelet Count 253, Mean Platelet Volume 11.3, Immature Granulocyte % (Auto) 1, Neutrophils (%) (Auto) 72, Lymphocytes (%) (Auto) 17, Monocytes (%) (Auto) 5, Eosinophils (%) (Auto) 5, Basophils (%) (Auto) 1, Neutrophils # (Auto) 6.4, Lymphocytes # (Auto) 1.5, Monocytes # (Auto) 0.5, Eosinophils # (Auto) 0.4, Basophils # (Auto) 0.1, Immature Granulocyte # (Auto) 0.1, Sodium Level 140, Potassium Level 3.7, Chloride Level 104, Carbon Dioxide Level 22, Anion Gap 14, Blood Urea Nitrogen 11, Creatinine 1.00, Estimat Glomerular Filtration Rate 85, BUN/Creatinine Ratio 11, Glucose Level 109, Calcium Level 9.1, Corrected Calcium 9.9, Total Bilirubin 0.3, Aspartate Amino Transf (AST/SGOT) 25, Alanine Aminotransferase (ALT/SGPT) 13, Alkaline Phosphatase 128, Total Protein 8.1, Albumin 3.0 06/08/22 10:57: Glucometer 189 06/08/22 15:58: Glucometer 122 06/08/22 20:39: Glucometer 96 06/09/22 05:29: Glucometer 73 06/09/22 05:30: White Blood Count 7.4, Red Blood Count 3.47, Hemoglobin 8.8, Hematocrit 29, Mean Corpuscular Volume 83, Mean Corpuscular Hemoglobin 25, Mean Corpuscular Hemoglobin Concent 30, Red Cell Distribution Width 15.9, Platelet Count 246, Mean Platelet Volume 9.9, Immature Granulocyte % (Auto) 1, Neutrophils (%) (A uto) 66, Lymphocytes (%) (Auto) 20, Monocytes (%) (Auto) 7, Eosinophils (%) (Auto) 6, Basophils (%) (Auto) 1, Neutrophils # (Auto) 4.9, Lymphocytes # (Auto) 1.5, Monocytes # (Auto) 0.5, Eosinophils # (Auto) 0.4, Basophils # (Auto) 0.1, Immature Granulocyte # (Auto) 0.0, Sodium Level 138, Potassium Level 3.7, Chloride Level 106, Carbon Dioxide Level 22, Anion Gap 10, Blood Urea Nitrogen 12, Creatinine 0.83, Estimat Glomerular Filtration Rate 98, BUN/Creatinine Ratio 14, Glucose Level 73, Calcium Level 8.6, Corrected Calcium 9.7, Total Bilirubin 0.2, Aspartate Amino Transf (AST/SGOT) 20, Alanine Aminotransferase (ALT/SGPT) 9, Alkaline Phosphatase 117, Total Protein 7.1, Albumin 2.6 06/09/22 10:51: Glucometer 116 10/18/22 15:36: Glucometer 121 06/09/22 22:33: Glucometer 148 06/10/22 08:25: Influenza Type A (RT-PCR) Not Detected, Influenza Type B (RT-PCR) Not Detected, SARS-CoV-2 RNA (RT-PCR) Not Detected Discharge Home Medications: Active Scripts Active Clonidine TTS 1 Patch (Clonidine) 0.1 Mg/24 Hour Patch.tdwk 0.1 Mg TD MO@0900 30 Days Reported Proventil Hfa (Albuterol Sulfate) 6.7 Gm Hfa.aer.ad 1 Puff INH Q4H PRN Vitamin D3 (Cholecalciferol (Vitamin D3)) 1,250 Mcg (33148 Unit) Capsule 1,250 Mcg PO WED Oxybutynin Chloride 5 Mg Tablet 5 Mg PO BID Fungoid-D (Tolnaftate) 1 % Cream..g. 1 Applic TP BID APPLY TO AFFECTED AREAS AROUND NAILS AND UNDERNEATH NAIL TOP Diazepam 5 Mg Tablet 5 Mg PO 1999 Metoprolol Tartrate 50 Mg Tablet 50 Mg PO 0800,1700 Oxycodone HCl 10 Mg Tablet 10 Mg PO Q6H PRN Tylenol Extra Strength (Acetaminophen) 500 Mg Tablet 1,000 Mg PO Q8H PRN Stimulant Laxative Plus Tablet (Sennosides/Docusate Sodium) 8.6 Mg-50 Mg Tablet 1 Ea PO BID Morphine Sulfate ER (Morphine Sulfate) 15 Mg Tablet.er 15 Mg PO 0600,1800 Antacid (Calcium Carbonate) 200 Mg Calcium (500 Mg) Tab.chew 2 Ea PO ACHS Levothyroxine Sodium 50 Mcg Tablet 50 Mcg PO DAILY Sertraline HCl 100 Mg Tablet 100 Mg PO DAILY Pantoprazole Sodium 40 Mg Tablet.dr 40 Mg PO DAILY Mirtazapine 30 Mg Tablet 30 Mg PO HS [id number] (Polyethylene Glycol 3350) 17 Gram/Dose Powder 17 Gm PO DAILY [Melatonin] 12 Tab 12 Mg PO HS Gabapentin 600 Mg Tablet 600 Mg PO 0800,1400,1999 Cyclobenzaprine HCl 10 Mg Tablet 10 Mg PO 0800,1400,2000 Amlodipine Besylate 5 Mg Tablet 5 Mg PO DAILY Insulin Glargine-Yfgn 100 Unit/Ml (3 Ml) Insuln.pen 10 Units SC DAILY Instructions to patient/family Please see electronic discharge instructions given to patient. RSO ZIMMER DO Jun 10, 2022 06:52
[2022-06-10 08:30] VITALS: BP 158/79
[2022-06-10] MEDS ORDERED: VITAMIN D2 1.25 MG (50,000 UNITS) CAP PO SCH (09:00)
[2022-06-10] MEDS: amLODIPine 5 MG (NORVASC) TAB PO SCH (09:45)
[2022-06-10] MEDS: GABAPENTIN 600 MG (NEURONTIN) TAB PO SCH (09:45)
[2022-06-10] MEDS: PANTOPRAZOLE 40 MG (PROTONIX) TAB PO SCH (09:45)
[2022-06-10] MEDS: OXYBUTYNIN (DITROPAN) 5 MG TAB PO SCH (09:45)
[2022-06-10] MEDS: meTOprolol TARTRATE 50 MG (LOPRESSOR) TAB PO SCH (09:45)
[2022-06-10] MEDS: ENOXAPARIN 40 MG/0.4 ML (LOVENOX) SYR SQ SCH (09:46)
[2022-06-10] MEDS: MICONAZOLE NITRATE 2% CRM 30 GM TP SCH (09:46)
[2022-06-10] MEDS: NYSTATIN ORAL SUSP 5 ML UDC PO SCH (09:47)
[2022-06-10] MEDS: SERTRALINE 100 MG (ZOLOFT) TAB PO SCH (10:24)
[2022-06-10] MEDS: polyethylene glycoL POWDER 17 GM (MIRALAX) PACK PO SCH (10:24)
[2022-06-10] MEDS: SENNA W/DOCUSATE (SENOKOT S) TABLET PO SCH (10:25)
[2022-06-10 12:44] VITALS: BP 158/79
[2022-06-15] MEDS ORDERED: CLONIDINE PATCH REMOVAL TP SCH (08:59)
== END 2022-06-10 12:20 | disposition critical access hospital (66) | DRG 698 ==
LOC: EDUNIT# 21:16 → ER FS 21:17 → 4TH 06-05 00:27 → ICU 06-05 07:26 → 4TH 06-06 12:09
PROVIDERS: ADMIT Family Medicine; ATTEND Internal Medicine
DX: T83.511A Infection and inflammatory reaction due to indwelling urethral catheter, initial encounter (principal); A41.9 Sepsis, unspecified organism; J96.01 Acute respiratory failure with hypoxia; F05 Delirium due to known physiological condition; E87.1 Hypo-osmolality and hyponatremia; I42.0 Dilated cardiomyopathy; C79.9 Secondary malignant neoplasm of unspecified site; N39.0 Urinary tract infection, site not specified; J44.9 Chronic obstructive pulmonary disease, unspecified; C61 Malignant neoplasm of prostate; I10 Essential (primary) hypertension; E11.9 Type 2 diabetes mellitus without complications; Z91.199 Patient's noncompliance with other medical treatment and regimen due to unspecified reason; D64.9 Anemia, unspecified; I08.1 Rheumatic disorders of both mitral and tricuspid valves; F15.10 Other stimulant abuse, uncomplicated; Z79.4 Long term (current) use of insulin; Z20.822 Contact with and (suspected) exposure to COVID-19
CPT/HCPCS: 36415; 36569; 70450; 71045; 71275; 76937; 80048; 80053; 81000; 82805; 82947; 83605; 83735; 83880; 84484; 85007; 85025; 85027; 85379; 86141; 87040; 87088; 87186; 87636; 93005; 93306; 94640; 94760; 96374

== ENCOUNTER 2022-06-17 11:03 | Emergency (ER) | payer MEDICAID ==
[~2022-06-17 11:03] MED LIST changes: +ACET-2267 PO; +AMLO-250 PO; +CALC-233 PO; +CHOL500049 PO; +CLON1PAT33 TD; +DIAZ5TAB49 PO; +GBPN600T PO; +INSU100I76 SC; +LEVO50TA6 PO; +MELATONIN PO; +METO50TA15 PO; +MIRT-69 PO; +MORP-68 PO; +OXYB5TAB13 PO; +OXYC10TA7 PO; +PANT40TA52 PO; +POLY238P32 PO; +RT-ALBUINH INH; +SENN-117 PO; +SERT-414 PO; +TOLN113C2 TP
--- NOTE | 2022-06-17 11:09 | ED Fall/Injury ---
General Stated Complaint: JOÃO LEG PAIN History of Present Illness Date Seen by Provider: Jun 17, 2022 Time Seen by Provider: 11:09 Initial Comments 62-year-old male brought in by EMS. Patient was in the care home and had an unwitnessed fall out of bed. Patient is complaining of bilateral knee pain. residential is also complaining that he is angry at them and that he recently just got out of of behavioral health and is refusing his meds. No reports of suicidal homicidal ideation. Patient is somewhat uncooperative and no other HPI available Allergies and Home Medications Allergies Coded Allergies: hydrocodone (Unverified Allergy, Unknown, hives, 02/08/19) aspirin (Unverified Adverse Reaction, Unknown, angioedema, 02/08/19) lisinopril (Unverified Adverse Reaction, Unknown, angioedema, 02/08/19) Patient Home Medication List Home Medication List Reviewed: Yes Acetaminophen (Tylenol Extra Strength) 500 Mg Tablet, 1,000 MG PO Q8H PRN for PAIN-MILD (1-4), (Reported) Entered as Reported by: MARS BAZZI on 06/05/22 1116 Albuterol Sulfate (Proventil Hfa) 6.7 Gm Hfa.aer.ad, 1 PUFF INH Q4H PRN for SHORTNESS OF BREATH, (Reported) Entered as Reported by: MARS BAZZI on 06/05/22 1131 Amlodipine Besylate (Amlodipine Besylate) 5 Mg Tablet, 5 MG PO DAILY, (Reported) Entered as Reported by: MARS BAZZI on 06/05/22 1116 Calcium Carbonate (Antacid) 200 Mg Calcium (500 Mg) Tab.chew, 2 EA PO ACHS, (Reported) Entered as Reported by: MARS BAZZI on 06/05/22 1116 Cholecalciferol (Vitamin D3) (Vitamin D3) 1,250 Mcg (65923 Unit) Capsule, 1,250 MCG PO WED, (Reported) Entered as Reported by: MARS BAZZI on 06/05/22 112 Clonidine (Clonidine TTS 1 Patch) 0.1 Mg/24 Hour Patch.tdwk, 0.1 MG TD Mo@0900 Prescribed by: ROS ZIMMER on 06/10/22 0651 Cyclobenzaprine HCl (Cyclobenzaprine HCl) 10 Mg Tablet, 10 MG PO 0800,1400,2000, (Reported) Entered as Reported by: MARS BAZZI on 06/05/221115 Diazepam (Diazepam) 5 Mg Tablet, 5 MG PO 1999, (Reported) Entered as Reported by: MARS BAZZI on 06/05/221125 Gabapentin (Gabapentin) 600 Mg Tablet, 600 MG PO 0800,1400,1999, (Reported) Entered as Reported by: MARS BAZZI on 06/05/221115 Insulin Glargine-Yfgn (Insulin Glargine-Yfgn) 100 Unit/Ml (3 Ml) Insuln.pen, 10 UNITS SC DAILY, (Reported) Entered as Reported by: MARS BAZZI on 06/05/221115 Levothyroxine Sodium (Levothyroxine Sodium) 50 Mcg Tablet, 50 MCG PO DAILY, (Reported) Entered as Reported by: MARS BAZZI on 06/05/221115 Metoprolol Tartrate (Metoprolol Tartrate) 50 Mg Tablet, 50 MG PO 0800,1700, (Reported) Entered as Reported by: MARS BAZZI on 06/05/221125 Mirtazapine (Mirtazapine) 30 Mg Tablet, 30 MG PO HS, (Reported) Entered as Reported by: MARS BAZZI on 06/05/221115 Morphine Sulfate (Morphine Sulfate ER) 15 Mg Tablet.er, 15 MG PO 0600,1800, (Reported) Entered as Reported by: MARS BAZZI on 06/05/221115 Oxybutynin Chloride (Oxybutynin Chloride) 5 Mg Tablet, 5 MG PO BID, (Reported) Entered as Reported by: MARS BAZZI on 06/05/221125 Oxycodone HCl (Oxycodone HCl) 10 Mg Tablet, 10 MG PO Q6H PRN for PAIN- BREAKTHROUGH, (Reported) Entered as Reported by: MARS BAZZI on 06/05/221115 Pantoprazole Sodium (Pantoprazole Sodium) 40 Mg Tablet.dr, 40 MG PO DAILY, (Reported) Entered as Reported by: MARS BAZZI on 06/05/221115 Polyethylene Glycol 3350 ([id number]) 17 Gram/Dose Powder, 17 GM PO DAILY, (Reported) Entered as Reported by: MARS BAZZI on 06/05/221115 Sennosides/Docusate Sodium (Stimulant Laxative Plus Tablet) 8.6 Mg-50 Mg Tablet, 1 EA PO BID, (Reported) Entered as Reported by: MARS BAZZI on 06/05/22 111 Sertraline HCl (Sertraline HCl) 100 Mg Tablet, 100 MG PO DAILY, (Reported) Entered as Reported by: MARS BAZZI on 06/05/22 111 Tolnaftate (Fungoid-D) 1 % Cream..g., 1 APPLIC TP BID, (Reported) Entered as Reported by: MARS BAZZI on 06/05/22 112 [Melatonin] 12 TAB, 12 MG PO HS, (Reported) Entered as Reported by: MARS BAZZI on 06/05/22 111 Review of Systems Review of Systems Constitutional: no symptoms reported Eyes: No Symptoms Reported Ears, Nose, Mouth, Throat: no symptoms reported Respiratory: no symptoms reported Cardiovascular: no symptoms reported Gastrointestinal: no symptoms reported Genitourinary: no symptoms reported Musculoskeletal: see HPI Skin: no symptoms reported Psychiatric/Neurological: No Symptoms Reported Past Gmypxrz-Ugptwo-Ruxnfg Hx Immunizations Up To Date First/Initial COVID19 Vaccinat: 03/08/2021 Second COVID19 Vaccination [place]: 10/06/2021 Past Medical History Surgery/Hospitalization HX: PMH: DM, NEUROPATHY. 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) Reproductive Disorders: No Genitourinary: No Gastrointestinal: Yes (CHRONIC GI COMPLAINTS) Musculoskeletal: Yes (CHRONIC GENERALIZED PAIN COMPLAINTS, ESPECIALLY TO LEGS AND FEET AND BACK) Chronic Back Pain Endocrine: Yes (OBESE; EXTERME NON-COMPLIANCE IN ALL ASPECTS OF CARE) Diabetes, Insulin dep HEENT: No Cancer: No Psychosocial: No Integumentary: No Blood Disorders: No Family Medical History Unable to obtain Physical Exam Vital Signs Vital Signs - First Documented 06/17/22 11:04 Temp 36.4 Pulse 66 Resp 18 B/P (MAP) 169/79 (109) Pulse Ox 98 O2 Delivery Room Air Capillary Refill : Height, Weight, BMI Height: 5'9.00" Weight: 251lbs. 0oz. 113.853382mr; 30.52 BMI Method:Actual General Appearance: no apparent distress HEENT: PERRL/EOMI, other (Normocephalic, nontraumatic) Neck: non-tender, supple Cardiovascular: regular rate, rhythm Respiratory: lungs clear, normal breath sounds Gastrointestinal: soft; No distended Extremities: other (Bilateral tenderness to his knees with some mild abrasion) Neurologic/Psychiatric: alert, other (Angry and noncooperative) Skin: other (Mild abrasions anterior bilateral knee) Progress/Results/Core Measures Results/Orders My Orders Orders - LOREN BRANTLEY DO Knee 3 View Bilateral (06/17/22 11:09) Vital Signs/I&O 06/17/22 06/17/22 11:04 11:55 Temp 36.4 36.4 Pulse 66 66 Resp 18 18 B/P (MAP) 169/79 (109) 169/79 Pulse Ox 98 98 O2 Delivery Room Air Room Air Progress Progress Note : Progress Note Patient's x-ray showed no acute findings. He does have some wall abrasions on his knees. Patient was moaning and complaining of pain. However when he was offered some p.o. pain medication he declined. Patient stable and discharged back to the care home Diagnostic Imaging Diagonstic Imaging: Xray Plain Films/CT/US/NM/MRI: other Comments Date of Exam:06/17/22 KNEE 3 VIEW BILATERAL CLINICAL HISTORY: Bilateral knee pain. COMPARISON: None. TECHNIQUE: Six views of the bilateral knees. FINDINGS: There is no acute fracture or dislocation of the bilateral knees. Alignment is anatomic. Degenerative changes are seen in the knees with joint space narrowing, marginal osteophytes, and subchondral sclerosis. These are most prominent in the medial compartment of the right knee. No large joint effusion is seen. No suspicious focal osseous lesions. IMPRESSION: 1. No acute fracture or dislocation in the bilateral knees. 2. Moderate osteoarthritis in the right knee, greatest in the medial compartment. Milder degenerative changes are seen in the left knee. Reviewed: Reviewed by Me, Reviewed/Discussed Departure Impression Primary Impression: Contusion of knee, right Qualified Codes: S80.01XA - Contusion of right knee, initial encounter Additional Impressions: Contusion of knee, left Qualified Codes: S80.02XA - Contusion of left knee, initial encounter Abrasion of knee, right Qualified Codes: S80.211A - Abrasion, right knee, initial encounter Abrasion of knee, left Qualified Codes: S80.212A - Abrasion, left knee, initial encounter Fall from bed, initial encounter Disposition: HOME, SELF-CARE Condition: Stable Departure-Patient Inst. Referrals: ARNOLDO PALACIOS MD (PCP) Primary Care Physician Patient Instructions: Minor Contusion ED, Contusion (DC) Add. Discharge Instructions: Tylenol or ibuprofen as needed for pain Keep knee contusion clean with warm soapy water Follow-up with your primary care provider as needed LOREN BRANTLEY DO Jun 17, 2022 11:09
--- NOTE | 2022-06-17 11:44 | Diagnostic Imaging Report ---
CLINICAL HISTORY: Bilateral knee pain. COMPARISON: None. TECHNIQUE: Six views of the bilateral knees. FINDINGS: There is no acute fracture or dislocation of the bilateral knees. Alignment is anatomic. Degenerative changes are seen in the knees with joint space narrowing, marginal osteophytes, and subchondral sclerosis. These are most prominent in the medial compartment of the right knee. No large joint effusion is seen. No suspicious focal osseous lesions. IMPRESSION: 1. No acute fracture or dislocation in the bilateral knees. 2. Moderate osteoarthritis in the right knee, greatest in the medial compartment. Milder degenerative changes are seen in the left knee. Dictated by: Dictated on workstation # [id number]
[2022-06-17 11:55] VITALS: BP 169/79
== END 2022-06-17 12:20 | disposition home or self-care (01) ==
LOC: EDUNIT# 11:03 → ER FS 11:04
DX: S80.02XA Contusion of left knee, initial encounter (principal); S80.01XA Contusion of right knee, initial encounter; E11.21 Type 2 diabetes mellitus with diabetic nephropathy; E66.9 Obesity, unspecified; Z68.30 Body mass index [BMI] 30.0-30.9, adult; Z79.4 Long term (current) use of insulin; W06.XXXA Fall from bed, initial encounter; Y92.129 Unspecified place in nursing home as the place of occurrence of the external cause

== ENCOUNTER 2022-06-17 22:24 | Emergency (ER) | payer MEDICAID ==
--- NOTE | 2022-06-17 22:37 | ED Back Pain ---
General Chief Complaint: Back Problems Stated Complaint: FALL, BACK PAIN History of Present Illness Date Seen by Provider: Jun 17, 2022 Time Seen by Provider: 22:35 Initial Comments 62-year-old male presents because he "fell out of bed again" EMS and detention staff reports that he threw himself out of bed because he was arguing with him. Patient states he just wants something to eat and they were treating him nice.. Patient himself does not provide me any further information. intermediate reports she is complaining of "low back pain" patient is uncooperative and disruptive. No other HPI available. Allergies and Home Medications Allergies Coded Allergies: hydrocodone (Unverified Allergy, Unknown, hives, 02/08/19) aspirin (Unverified Adverse Reaction, Unknown, angioedema, 02/08/19) lisinopril (Unverified Adverse Reaction, Unknown, angioedema, 02/08/19) Patient Home Medication List Home Medication List Reviewed: Yes Acetaminophen (Tylenol Extra Strength) 500 Mg Tablet, 1,000 MG PO Q8H PRN for PAIN-MILD (1-4), (Reported) Entered as Reported by: MARS BAZZI on 06/05/22 1116 Albuterol Sulfate (Proventil Hfa) 6.7 Gm Hfa.aer.ad, 1 PUFF INH Q4H PRN for SHORTNESS OF BREATH, (Reported) Entered as Reported by: MARS BAZZI on 06/05/22 1131 Amlodipine Besylate (Amlodipine Besylate) 5 Mg Tablet, 5 MG PO DAILY, (Reported) Entered as Reported by: MARS BAZZI on 06/05/22 111 Calcium Carbonate (Antacid) 200 Mg Calcium (500 Mg) Tab.chew, 2 EA PO ACHS, (Reported) Entered as Reported by: MARS BAZZI on 06/05/22 1116 Cholecalciferol (Vitamin D3) (Vitamin D3) 1,250 Mcg (82807 Unit) Capsule, 1,250 MCG PO WED, (Reported) Entered as Reported by: MARS BAZZI on 06/05/22 112 Clonidine (Clonidine TTS 1 Patch) 0.1 Mg/24 Hour Patch.tdwk, 0.1 MG TD Mo@0900 Prescribed by: ORS ZIMMER on 06/10/22 0651 Cyclobenzaprine HCl (Cyclobenzaprine HCl) 10 Mg Tablet, 10 MG PO 0800,1400,1999, (Reported) Entered as Reported by: MARS BAZZI on 06/05/221115 Diazepam (Diazepam) 5 Mg Tablet, 5 MG PO 1999, (Reported) Entered as Reported by: MARS BAZZI on 06/05/221125 Gabapentin (Gabapentin) 600 Mg Tablet, 600 MG PO 0800,1400,1999, (Reported) Entered as Reported by: MARS BAZZI on 06/05/221115 Insulin Glargine-Yfgn (Insulin Glargine-Yfgn) 100 Unit/Ml (3 Ml) Insuln.pen, 10 UNITS SC DAILY, (Reported) Entered as Reported by: MARS BAZZI on 06/05/221115 Levothyroxine Sodium (Levothyroxine Sodium) 50 Mcg Tablet, 50 MCG PO DAILY, (Reported) Entered as Reported by: MARS BAZZI on 06/05/221115 Metoprolol Tartrate (Metoprolol Tartrate) 50 Mg Tablet, 50 MG PO 0800,1700, (Reported) Entered as Reported by: MARS BAZZI on 06/05/221125 Mirtazapine (Mirtazapine) 30 Mg Tablet, 30 MG PO HS, (Reported) Entered as Reported by: MARS BAZZI on 06/05/221115 Morphine Sulfate (Morphine Sulfate ER) 15 Mg Tablet.er, 15 MG PO 0600,1800, (Reported) Entered as Reported by: MARS BAZZI on 06/05/221115 Oxybutynin Chloride (Oxybutynin Chloride) 5 Mg Tablet, 5 MG PO BID, (Reported) Entered as Reported by: MARS BAZZI on 06/05/221125 Oxycodone HCl (Oxycodone HCl) 10 Mg Tablet, 10 MG PO Q6H PRN for PAIN- BREAKTHROUGH, (Reported) Entered as Reported by: MARS BAZZI on 06/05/221115 Pantoprazole Sodium (Pantoprazole Sodium) 40 Mg Tablet.dr, 40 MG PO DAILY, (Reported) Entered as Reported by: MARS BAZZI on 06/05/221115 Polyethylene Glycol 3350 ([id number]) 17 Gram/Dose Powder, 17 GM PO DAILY, (Reported) Entered as Reported by: MARS BAZZI on 06/05/221115 Sennosides/Docusate Sodium (Stimulant Laxative Plus Tablet) 8.6 Mg-50 Mg Tablet, 1 EA PO BID, (Reported) Entered as Reported by: MARS BAZZI on 06/05/22 111 Sertraline HCl (Sertraline HCl) 100 Mg Tablet, 100 MG PO DAILY, (Reported) Entered as Reported by: MARS BAZZI on 06/05/221115 Tolnaftate (Fungoid-D) 1 % Cream..g., 1 APPLIC TP BID, (Reported) Entered as Reported by: MARS BAZZI on 06/05/22 112 [Melatonin] 12 TAB, 12 MG PO HS, (Reported) Entered as Reported by: MARS BAZZI on 06/05/221115 Review of Systems Constitutional: no symptoms reported EENTM: no symptoms reported Respiratory: no symptoms reported Cardiovascular: no symptoms reported Gastrointestinal: no symptoms reported Genitourinary: no symptoms reported Musculoskeletal: see HPI Skin: no symptoms reported Psychiatric/Neurological: No Symptoms Reported Past Rvknmsy-Bcfxdh-Zmaqyo Hx Immunizations Up To Date First/Initial COVID19 Vaccinat: 03/08/2021 Second COVID19 Vaccination [place]: 10/06/2021 Past Medical History Surgery/Hospitalization HX: PMH: DM, NEUROPATHY. 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) Reproductive Disorders: No Genitourinary: No Gastrointestinal: Yes (CHRONIC GI COMPLAINTS) Musculoskeletal: Yes (CHRONIC GENERALIZED PAIN COMPLAINTS, ESPECIALLY TO LEGS AND FEET AND BACK) Chronic Back Pain Endocrine: Yes (OBESE; EXTERME NON-COMPLIANCE IN ALL ASPECTS OF CARE) Diabetes, Insulin dep HEENT: No Cancer: No Psychosocial: No Integumentary: No Blood Disorders: No Family Medical History Unable to obtain Physical Exam Vital Signs Vital Signs - First Documented 06/17/22 22:32 Temp 36.9 Pulse 82 Resp 20 B/P (MAP) 147/93 (111) Pulse Ox 92 O2 Delivery Room Air Capillary Refill : Height, Weight, BMI Height: 5'9.00" Weight: 251lbs. 0oz. 113.540592op; BMI Method:Actual General Appearance: No Apparent Distress, WD/WN HEENT: PERRL/EOMI Neck: Full Range of Motion Cardiovascular: Regular Rate, Rhythm Respiratory: No Accessory Muscle Use, No Respiratory Distress Gastrointestinal: Soft Back: Other (mild bilateral lumbar tenderness, patient had no pain while being examined with distraction) Extremity: Normal Capillary Refill, Normal Range of Motion Neurologic/Psychiatric: Alert, No Motor/Sensory Deficits, Other (Disruptive and argumentative,) Skin: Normal Color, Warm/Dry Progress/Results/Core Measures Results/Orders My Orders Orders - LOREN BRANTLEY DO Lumbar Spine 2 Or 3 View (06/17/22 22:37) Vital Signs/I&O 06/17/22 22:32 Temp 36.9 Pulse 82 Resp 20 B/P (MAP) 147/93 (111) Pulse Ox 92 O2 Delivery Room Air Progress Progress Note : Progress Note Patient with no acute findings noted on x-ray. Patient's mainly here because of disagreement with staff at detention. Patient does report that he wants to go back. Patient had no pain when examining his lower back with distraction while visiting with him. Patient requested a drug screen because he "states that they think he is doing drugs" patient was stable and discharged back to care facility Departure Impression Primary Impression: Back pain Qualified Codes: M54.50 - Low back pain, unspecified; G89.29 - Other chronic pain Additional Impressions: Fall from bed, initial encounter Behavior disturbance Disposition: 01 HOME, SELF-CARE Condition: Stable Departure-Patient Inst. Referrals: ARNOLDO PALACIOS MD (PCP/Family) Primary Care Physician Add. Discharge Instructions: Continue his current home medication Follow-up with a primary care provider All discharge instructions reviewed with patient and/or family. Voiced understanding. LOREN BRANTLEY DO Jun 17, 2022 22:37
[2022-06-17 23:41] VITALS: BP 147/93
[2022-06-18 02:26] LABS: AMPHETAMINE SCREEN, URINE NEGATIVE (NEGATIVE); BARBITURATE SCREEN URINE NEGATIVE (NEGATIVE); BENZODIAZEPINES SCREEN URINE POSITIVE (NEGATIVE); CANNABINOID SCREEN, URINE NEGATIVE (NEGATIVE); COCAINE SCREEN URINE NEGATIVE (NEGATIVE); METHADONE STAT NEGATIVE (NEGATIVE); OPIATE SCREEN URINE POSITIVE (NEGATIVE); OXYCODONE STAT NEGATIVE (NEGATIVE); PROPOXYPHENE STAT NEGATIVE (NEGATIVE); TRICYCLIC ANTIDEPRESSANTS SCRE NEGATIVE (NEGATIVE)
--- NOTE | 2022-06-18 07:06 | Diagnostic Imaging Report ---
INDICATION: Fall. Back pain. COMPARISON: MRI dated 10/05/2019 FINDINGS: Frontal and lateral radiographic views of the lumbar spine were obtained. Osseous structures are diffusely sclerotic consistent with osteoblastic metastatic disease. No pathologic fractures seen. Vertebral body heights are maintained. Static alignment is preserved. Multilevel degenerative changes are noted. Included small bowel loops show mild gaseous dilatation. IMPRESSION: 1. No acute fracture or dislocation lumbar spine. 2. Redemonstration of diffuse osteoblastic metastatic disease. 3. Mild gaseous dilatation of the small bowel. Dictated by: Dictated on workstation # [id number]
== END 2022-06-17 23:50 | disposition home or self-care (01) ==
LOC: EDUNIT# 22:24 → ER FS 22:25
DX: M54.50 Low back pain, unspecified (principal); F91.9 Conduct disorder, unspecified; E11.40 Type 2 diabetes mellitus with diabetic neuropathy, unspecified; E66.9 Obesity, unspecified; Z28.310 Unvaccinated for COVID-19; Z79.4 Long term (current) use of insulin; W06.XXXA Fall from bed, initial encounter
CPT/HCPCS: 72100; 80306

== ENCOUNTER 2022-06-20 16:50 | Inpatient (IN) | payer MEDICAID ==
[~2022-06-20] VITALS: Ht 175.2 cm; Wt 103.7 kg
--- NOTE | 2022-06-20 16:59 | ED Psychosocial ---
General Chief Complaint: Overdose Stated Complaint: INGESTED POISON History of Present Illness Date Seen by Provider: Jun 20, 2022 Time Seen by Provider: 16:52 Initial Comments 62-year-old male who lives in assisted living, with PMH of Prostate cancer taking chemo/ DM2/HTN/asthma/hypothyroidism, is brought in by EMS with complaints of ingestion of pesticide. Patient states that he tried to commit suicide and wants to . Patient ingested about 1 mL of the pesticide and a spray bottle and then vomited almost immediately after. Patient is alert and oriented and able to converse and answer questions and follow commands. Patient also is complaining of abdominal discomfort. It is associated with nausea. (BROOKLYN LIMON MD) Allergies and Home Medications Allergies Coded Allergies: hydrocodone (Unverified Allergy, Unknown, hives, 02/08/19) aspirin (Unverified Adverse Reaction, Unknown, angioedema, 02/08/19) lisinopril (Unverified Adverse Reaction, Unknown, angioedema, 02/08/19) Patient Home Medication List Home Medication List Reviewed: Yes (BROOKLYN LIMON MD) Acetaminophen (Tylenol Extra Strength) 500 Mg Tablet, 1,000 MG PO Q8H PRN for PAIN-MILD (1-4), (Reported) Entered as Reported by: MARS BAZZI on 06/05/22 111 Albuterol Sulfate (Proventil Hfa) 6.7 Gm Hfa.aer.ad, 1 PUFF INH Q4H PRN for SHORTNESS OF BREATH, (Reported) Entered as Reported by: MARS BAZZI on 06/05/22 1131 Amlodipine Besylate (Amlodipine Besylate) 5 Mg Tablet, 5 MG PO DAILY, (Reported) Entered as Reported by: MARS BAZZI on 06/05/22 111 Calcium Carbonate (Antacid) 200 Mg Calcium (500 Mg) Tab.chew, 2 EA PO ACHS, (Reported) Entered as Reported by: MARS BAZZI on 06/05/22 111 Cholecalciferol (Vitamin D3) (Vitamin D3) 1,250 Mcg (72343 Unit) Capsule, 1,250 MCG PO WED, (Reported) Entered as Reported by: MARS BAZZI on 06/05/22 112 Clonidine (Clonidine TTS 1 Patch) 0.1 Mg/24 Hour Patch.tdwk, 0.1 MG TD Mo@0900 Prescribed by: ROS ZIMMER on 06/10/22 0651 Cyclobenzaprine HCl (Cyclobenzaprine HCl) 10 Mg Tablet, 10 MG PO 0800,1400,1999, (Reported) Entered as Reported by: MARS BAZZI on 06/05/221115 Diazepam (Diazepam) 5 Mg Tablet, 5 MG PO 1999, (Reported) Entered as Reported by: MARS BAZZI on 06/05/221125 Gabapentin (Gabapentin) 600 Mg Tablet, 600 MG PO 0800,1400,1999, (Reported) Entered as Reported by: MARS BAZZI on 06/05/221115 Insulin Glargine-Yfgn (Insulin Glargine-Yfgn) 100 Unit/Ml (3 Ml) Insuln.pen, 10 UNITS SC DAILY, (Reported) Entered as Reported by: MARS BAZZI on 06/05/221115 Levothyroxine Sodium (Levothyroxine Sodium) 50 Mcg Tablet, 50 MCG PO DAILY, (Reported) Entered as Reported by: MARS BAZZI on 06/05/221115 Metoprolol Tartrate (Metoprolol Tartrate) 50 Mg Tablet, 50 MG PO 0800,1700, (Reported) Entered as Reported by: MARS BAZZI on 06/05/221125 Mirtazapine (Mirtazapine) 30 Mg Tablet, 30 MG PO HS, (Reported) Entered as Reported by: MARS BAZZI on 06/05/221115 Morphine Sulfate (Morphine Sulfate ER) 15 Mg Tablet.er, 15 MG PO 0600,1800, (Reported) Entered as Reported by: MARS BAZZI on 06/05/221115 Oxybutynin Chloride (Oxybutynin Chloride) 5 Mg Tablet, 5 MG PO BID, (Reported) Entered as Reported by: MARS BAZZI on 06/05/221125 Oxycodone HCl (Oxycodone HCl) 10 Mg Tablet, 10 MG PO Q6H PRN for PAIN- BREAKTHROUGH, (Reported) Entered as Reported by: MARS BAZZI on 06/05/221115 Pantoprazole Sodium (Pantoprazole Sodium) 40 Mg Tablet.dr, 40 MG PO DAILY, (Reported) Entered as Reported by: MARS BAZZI on 06/05/22 1116 Polyethylene Glycol 3350 ([id number]) 17 Gram/Dose Powder, 17 GM PO DAILY, (Reported) Entered as Reported by: MARS BAZZI on 06/05/22 111 Sennosides/Docusate Sodium (Stimulant Laxative Plus Tablet) 8.6 Mg-50 Mg Tablet, 1 EA PO BID, (Reported) Entered as Reported by: MARS BAZZI on 06/05/22 111 Sertraline HCl (Sertraline HCl) 100 Mg Tablet, 100 MG PO DAILY, (Reported) Entered as Reported by: MARS BAZZI on 06/05/22 111 Tolnaftate (Fungoid-D) 1 % Cream..g., 1 APPLIC TP BID, (Reported) Entered as Reported by: MARS BAZZI on 06/05/22 112 [Melatonin] 12 TAB, 12 MG PO HS, (Reported) Entered as Reported by: MARS BAZZI on 06/05/22 111 Review of Systems Constitutional: no symptoms reported EENTM: no symptoms reported Respiratory: no symptoms reported Cardiovascular: no symptoms reported Gastrointestinal: nausea, vomiting Genitourinary: no symptoms reported Musculoskeletal: no symptoms reported Skin: no symptoms reported Psychiatric/Neurological: Other (suicide attempt) (BROOKLYN LIMON MD) Past Ngcsfkk-Glounh-Dajwpe Hx Immunizations Up To Date First/Initial COVID19 Vaccinat: 03/08/2021 Second COVID19 Vaccination [place]: 10/06/2021 (BROOKLYN LIMON MD) Past Medical History Surgery/Hospitalization HX: PMH: DM, NEUROPATHY. 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) Reproductive Disorders: No Genitourinary: No Gastrointestinal: Yes (CHRONIC GI COMPLAINTS) Musculoskeletal: Yes (CHRONIC GENERALIZED PAIN COMPLAINTS, ESPECIALLY TO LEGS AND FEET AND BACK) Chronic Back Pain Endocrine: Yes (OBESE; EXTERME NON-COMPLIANCE IN ALL ASPECTS OF CARE) Diabetes, Insulin dep HEENT: No Cancer: No Psychosocial: No Integumentary: No Blood Disorders: No (BROOKLYN LIMON MD) Family Medical History Unable to obtain (BROOKLYN LIMON MD) Physical Exam Vital Signs - First Documented 06/20/22 16:52 Temp 36.6 Pulse 71 Resp 16 B/P (MAP) 124/68 (86) Pulse Ox 95 O2 Delivery Room Air (IDA AMIN MD) Capillary Refill : (BROOKLYN LIMON MD) Height, Weight, BMI Height: 5'9.00" Weight: 251lbs. 0oz. 113.860751ve; BMI Method:Actual General Appearance: WD/WN, no apparent distress HEENT: PERRL/EOMI Neck: full range of motion Respiratory: chest non-tender, lungs clear, normal breath sounds, no respiratory distress Cardiovascular: regular rate, rhythm Gastrointestinal: normal bowel sounds, non tender, soft Extremities: normal range of motion Neurologic/Psychiatric: alert, oriented x 3, other (suicidal and agitated) Behavior/Eye Contact: cooperative (alternates between cooperative and uncooperative), uncooperative Thoughts/Hallucinations: other (agitated) Skin: normal color Lymphatic: no adenopathy (BROOKLYN LIMON MD) Progress/Results/Core Measures Results/Orders Lab Results Laboratory Tests Test 06/20/22 17:15 06/21/22 01:19 06/21/22 02:25 Range/Units White Blood Count 7.0 4.3-11.0 10^3/uL Red Blood Count 3.61 L 4.30-5.52 10^6/uL Hemoglobin 9.2 L 13.3-17.7 g/dL Hematocrit 29 L 40-54 % Mean Corpuscular Volume 81 80-99 fL Mean Corpuscular Hemoglobin 26 25-34 pg Mean Corpuscular Hemoglobin Concent 32 32-36 g/dL Red Cell Distribution Width 16.5 H 10.0-14.5 % Platelet Count 195 130-400 10^3/uL Mean Platelet Volume 10.0 9.0-12.2 fL Immature Granulocyte % (Auto) 0 % Neutrophils (%) (Auto) 73 42-75 % Lymphocytes (%) (Auto) 15 12-44 % Monocytes (%) (Auto) 6 0-12 % Eosinophils (%) (Auto) 5 0-10 % Basophils (%) (Auto) 1 0-10 % Neutrophils # (Auto) 5.1 1.8-7.8 10^3/uL Lymphocytes # (Auto) 1.1 1.0-4.0 10^3/uL Monocytes # (Auto) 0.4 0.0-1.0 10^3/uL Eosinophils # (Auto) 0.3 0.0-0.3 10^3/uL Basophils # (Auto) 0.1 0.0-0.1 10^3/uL Immature Granulocyte # (Auto) 0.0 0.0-0.1 10^3/uL Urine Color YELLOW Urine Clarity SLIGHTLY CLOUDY Urine pH 5.0 5-9 Urine Specific [place] >=1.030 1.016-1.022 Urine Protein 2+ H NEGATIVE Urine Glucose (UA) NEGATIVE NEGATIVE Urine Ketones TRACE H NEGATIVE Urine Nitrite NEGATIVE NEGATIVE Urine Bilirubin 1+ H NEGATIVE Urine Urobilinogen 0.2 < = 1.0 MG/DL Urine Leukocyte Esterase TRACE H NEGATIVE Urine RBC (Auto) 2+ H NEGATIVE Urine RBC 5-10 H /HPF Urine WBC 50-100 H /HPF Urine Crystals NONE /LPF Urine Bacteria LARGE H /HPF Urine Casts PRESENT /LPF Urine Hyaline Casts 25-50 H /LPF Urine Mucus LARGE H /LPF Urine Culture Indicated YES Sodium Level 139 135-145 MMOL/L Potassium Level 3.5 L 3.6-5.0 MMOL/L Chloride Level 102 98-107 MMOL/L Carbon Dioxide Level 23 21-32 MMOL/L Anion Gap 14 5-14 MMOL/L Blood Urea Nitrogen 20 H 7-18 MG/DL Creatinine 1.39 H 0.60-1.30 MG/DL Estimat Glomerular Filtration Rate 57 BUN/Creatinine Ratio 14 Glucose Level 239 H 70-105 MG/DL Calcium Level 8.4 L 8.5-10.1 MG/DL Corrected Calcium 9.2 8.5-10.1 MG/DL Magnesium Level 1.7 1.6-2.4 MG/DL Total Bilirubin 0.2 0.1-1.0 MG/DL Aspartate Amino Transf (AST/SGOT) 21 5-34 U/L Alanine Aminotransferase (ALT/SGPT) 12 0-55 U/L Alkaline Phosphatase 177 H 40-136 U/L Total Protein 7.6 6.4-8.2 GM/DL Albumin 3.0 L 3.2-4.5 GM/DL Thyroid Stimulating Hormone (TSH) 3.29 0.35-4.94 UIU/ML Free Thyroxine 1.06 0.70-1.48 NG/DL Salicylates Level < 0.3 L 5.0-20.0 MG/DL Urine Opiates Screen NEGATIVE NEGATIVE Urine Oxycodone Screen POSITIVE H NEGATIVE Urine Methadone Screen NEGATIVE NEGATIVE Urine Propoxyphene Screen NEGATIVE NEGATIVE Acetaminophen Level < 10 L 10-30 UG/ML Urine Barbiturates Screen NEGATIVE NEGATIVE Ur Tricyclic Antidepressants Screen POSITIVE H NEGATIVE Urine Phencyclidine Screen NEGATIVE NEGATIVE Urine Amphetamines Screen NEGATIVE NEGATIVE Urine Methamphetamines Screen NEGATIVE NEGATIVE Urine Benzodiazepines Screen POSITIVE H NEGATIVE Urine Cocaine Screen NEGATIVE NEGATIVE Urine Cannabinoids Screen NEGATIVE NEGATIVE Serum Alcohol < 10 <10 MG/DL Influenza Type A (RT-PCR) Not Detected Not Detecte Influenza Type B (RT-PCR) Not Detected Not Detecte SARS-CoV-2 RNA (RT-PCR) Not Detected Not Detecte (IDA AMIN MD) My Orders Orders - IDA AMIN MD Lorazepam Tablet (Ativan Tablet) (06/21/22 07:09) Diphenhydramine Injection (Benadryl Inje (06/21/22 07:15) Ziprasidone Injection (Geodon Injection) (06/21/22 07:15) Oxycodone Immediate Rel Tablet (Oxyir Ta (06/21/22 07:15) Gabapentin Capsule/Tablet (Neurontin Cap (06/21/22 09:00) Olanzapine Orally Dissolve Tab (Zyprexa (06/21/22 21:00) Lorazepam Tablet (Ativan Tablet) (06/21/22 10:18) (IDA AMIN MD) Medications Given in ED Current Medications Medications Dose Ordered Sig/Zack Route Start Time Stop Time Status Last Admin Dose Admin Diphenhydramine HCl 25 mg ONCE ONCE IM 06/21/22 07:15 06/21/22 07:16 DC 06/21/22 07:53 25 MG Droperidol 2.5 mg ONCE ONCE IM 06/21/22 02:00 06/21/22 02:01 DC 06/21/22 02:38 2.5 MG Droperidol 2.5 mg ONCE ONCE IV 06/21/22 00:00 06/21/22 00:09 DC 06/21/22 00:27 2.5 MG Gabapentin 300 mg TID ONCE PO 06/21/22 09:00 06/21/22 09:01 DC 06/21/22 09:16 300 MG Oxycodone HCl 5 mg Q6HR PRN PO 06/21/22 07:15 06/21/22 11:43 DC 06/21/22 07:54 5 MG Ziprasidone 10 mg ONCE ONCE IM 06/21/22 07:15 06/21/22 07:16 DC 06/21/22 08:11 10 MG (DIA AMIN MD) Vital Signs/I&O 06/21/22 06/21/22 06/21/22 00:18 04:21 08:00 Temp 36.8 36.8 Pulse 76 72 89 Resp 18 18 18 B/P (MAP) 126/76 (93) 122/68 (86) 165/89 (114) Pulse Ox 94 95 96 O2 Delivery Room Air Room Air Room Air (IDA AMIN MD) Progress Progress Note : Progress Note 1. PESTICIDE INGESTION/ SUICIDE ATTEMPT: - Pt ingested Ortho home defense insect killer solution - Poison Control contacted within 5 minutes of pt present in the ER - Labs unremarkable - UDS: Positive for TCA/oxycodone/benzo - NS IVF bolus STAT/ Zofran 4mg iv STAT - Psych screening: Placement planned for pt. 2. ACUTE CYSTITIS WITH HEMATURIA: - UA is positive for leukocyte esterase, RBCs, WBCs, bacteria -Patient has a Perkins -Ceftriaxone 1 g IV stat in ER -This may be contributing to his agitation 3. AGITATION IN ER: Over the course of ER STAY:- Haldol 2mg iv STAT - Geodon 10mg im STAT - Droperidol 2.5mg im x2 - Police called since pt threatening to hit staff 4. PROSTATE CANCER: -Patient receives monthly chemotherapy for prostate cancer with oncologist: Dr. Puentes in [place], associated with [facility]. -Patient received his monthly chemotherapy last 06/19/22. (BROOKLYN LIMON MD) Progress Note : Progress Note We have contacted numerous psychiatric facilities. Unfortunately patient is too acute, is in a wheelchair, and has a Perkins, and essentially all of them in the state are unable to take him. The patient has become increasingly more confused, agitated, although not physical with staff or aggressive. He does have a UTI which could be causing his confusion. Given the altered mental status with infection, he is technically showing signs of sepsis. He did receive ceftriaxone. He does have a mild AMI as well. I contacted Dr. Zimmer, who will graciously accept him for admission to the intensive care unit for further evaluation and management under observation status. Of note, the patient does have an appointment this week with hospice per Malika at [facility] which is their research and evaluation manager who contacted us. I think this is very appropriate given the patient is seemingly end-stage prostate cancer with metastases to multiple areas. (IDA AMIN MD) Departure Impression Primary Impression: Suicide attempt Additional Impressions: Intentional poisoning by pesticide AMI (acute kidney injury) AMS (altered mental status) Qualified Codes: R41.0 - Disorientation, unspecified Disposition: 30 STILL A PATIENT Condition: Stable Admissions Decision to Admit Reason: Admit from ER (General) Decision to Admit/Date: Jun 21, 2022 Time/Decision to Admit Time: 11:45 (IDA AMIN MD) Transfer Method of Transfer: EMS (IDA AMIN MD) Departure-Patient Inst. Referrals: ARNOLDO PALACIOS MD (PCP/Family) Primary Care Physician Patient Instructions: ALCOHOL AND SUBSTANCE ABUSE BROOKLYN LIMON MD Jun 20, 2022 16:58 IDA AMIN MD Jun 21, 2022 11:17
[2022-06-20] MEDS ORDERED: NS IV 1000 ML 1,000 ML IV SCH (17:15)
[2022-06-20] MEDS ORDERED: ONDANSETRON 4 MG/2 ML (SDV) Z0FRAN IVP ONE (17:15)
[2022-06-20 17:20] LABS: BASOPHILS # (AUTO) 0.1 10^3/uL (0.0-0.1); BASOPHILS % (AUTO) 1 % (0-10); EOSINOPHILS # (AUTO) 0.3 10^3/uL (0.0-0.3); EOSINOPHILS % (AUTO) 5 % (0-10); HEMATOCRIT 29 % (40-54); HEMOGLOBIN 9.2 g/dL (13.3-17.7); LYMPHOCYTES # (AUTO) 1.1 10^3/uL (1.0-4.0); LYMPHOCYTES % (AUTO) 15 % (12-44); MEAN CORPUSCULAR HEMOGLOBIN 26 pg (25-34); MEAN CORPUSCULAR HGB CONC 32 g/dL (32-36); MEAN CORPUSCULAR VOLUME 81 fL (80-99); MONOCYTES # (AUTO) 0.4 10^3/uL (0.0-1.0); MONOCYTES % (AUTO) 6 % (0-12); NEUTROPHILS # (AUTO) 5.1 10^3/uL (1.8-7.8); NEUTROPHILS % (AUTO) 73 % (42-75); PLATELET COUNT 195 10^3/uL (130-400)
[2022-06-20 17:21] LABS: COLOR,URINE YELLOW; GLUCOSE, URINE (UA) NEGATIVE (NEGATIVE); KETONES,URINE TRACE (NEGATIVE); LEUKOCYTE ESTERASE ,URINE TRACE (NEGATIVE); NITRITE,URINE NEGATIVE (NEGATIVE); PROTEIN,URINE 2+ (NEGATIVE)
[2022-06-20 17:28] LABS: CLARITY,URINE SLIGHTLY CLOUDY
[2022-06-20 17:29] LABS: BACTERIA,URINE LARGE /HPF; BILIRUBIN,URINE 1+ (NEGATIVE); HYALINE CASTS, URINE 25-50 /LPF; WBC,URINE 50-100 /HPF
[2022-06-20 17:30] LABS: BENZODIAZEPINES SCREEN URINE POSITIVE (NEGATIVE); OXYCODONE STAT POSITIVE (NEGATIVE); TRICYCLIC ANTIDEPRESSANTS SCRE POSITIVE (NEGATIVE)
[2022-06-20 17:31] LABS: AMPHETAMINE SCREEN, URINE NEGATIVE (NEGATIVE); BARBITURATE SCREEN URINE NEGATIVE (NEGATIVE); CANNABINOID SCREEN, URINE NEGATIVE (NEGATIVE); COCAINE SCREEN URINE NEGATIVE (NEGATIVE); METHADONE STAT NEGATIVE (NEGATIVE); OPIATE SCREEN URINE NEGATIVE (NEGATIVE); PROPOXYPHENE STAT NEGATIVE (NEGATIVE)
[2022-06-20] MEDS ORDERED: cefTRIAXone 1 GM PRE-MIX 50 ML IV STA (17:36)
[2022-06-20 17:46] LABS: ACETAMINOPHEN < 10 UG/ML (10-30); ALANINE AMINOTRANSFERASE 12 U/L (0-55); ALKALINE PHOSPHATASE 177 U/L (40-136); BILIRUBIN,TOTAL 0.2 MG/DL (0.1-1.0); BUN/CREATININE RATIO 14; CALCIUM 8.4 MG/DL (8.5-10.1); CARBON DIOXIDE 23 MMOL/L (21-32); CHLORIDE 102 MMOL/L (98-107); CREATININE SERUM 1.39 MG/DL (0.60-1.30); GFR ESTIMATED 57; GLUCOSE 239 MG/DL (70-105); MAGNESIUM 1.7 MG/DL (1.6-2.4); SALICYLATE < 0.3 MG/DL (5.0-20.0); SODIUM 139 MMOL/L (135-145); TOTAL PROTEIN 7.6 GM/DL (6.4-8.2)
[2022-06-20 17:52] LABS: POTASSIUM 3.5 MMOL/L (3.6-5.0)
[2022-06-20] MEDS ORDERED: cefTRIAXone 1,000 MG VIAL IM ONE (19:00)
[2022-06-20] MEDS ORDERED: cefTRIAXone 1,000 MG VIAL ONE (21:22)
[2022-06-20] MEDS ORDERED: LIDOCAINE 1% INJ 20 ML VIAL ONE (21:22)
[2022-06-20] MEDS ORDERED: HALOPERIDOL 5 MG/ML (HALDOL) VIAL IM ONE (21:45)
[2022-06-20] MEDS ORDERED: LORazepam 0.5 MG (ATIVAN) TABLET PO STA (22:21)
[2022-06-20] MEDS ORDERED: ZIPRASIDONE 20 MG INJ (GEODON) VIAL IM ONE (22:45)
[2022-06-20] MEDS: WATER (STERILE) FOR INJ 10 ML BTL INJ SCH (22:58)
[2022-06-20] MEDS ORDERED: MELATONIN 3 MG TABLET PO STA (23:49)
[2022-06-21] MEDS ORDERED: DROPERIDOL 5 MG/2 ML (INAPSINE) ED ONLY! IV ONE
[2022-06-21] MEDS ORDERED: DROPERIDOL 5 MG/2 ML (INAPSINE) ED ONLY! IM ONE (02:00)
[2022-06-21 04:06] LABS: FREE T4 (FREE THYROXINE) 1.06 NG/DL (0.70-1.48)
[2022-06-21] MEDS ORDERED: LORazepam 0.5 MG (ATIVAN) TABLET PO STA ×2 (07:09→10:18)
[2022-06-21] MEDS ORDERED: ZIPRASIDONE 20 MG INJ (GEODON) VIAL IM ONE (07:15)
[2022-06-21] MEDS ORDERED: diphenhydrAMINE 50 MG/ML INJ (BENADRYL) IM ONE (07:15)
[2022-06-21] MEDS ORDERED: WATER (STERILE) FOR INJ 10 ML BTL INJ SCH ×2 (07:15→13:00)
[2022-06-21] MEDS: WATER (STERILE) FOR INJ 10 ML BTL INJ SCH (07:54)
[2022-06-21] MEDS ORDERED: GABAPENTIN 100 MG (NEURONTIN) CAP PO ONE (09:00)
[2022-06-21] MEDS ORDERED: ANTACID SUSP 30 ML UDC (MYLANTA) PO PRN (13:00)
[2022-06-21] MEDS ORDERED: NS IV 500 ML 500 ML IV PRN (13:00)
[2022-06-21] MEDS ORDERED: MELATONIN 3 MG TABLET PO PRN (13:00)
[2022-06-21] MEDS ORDERED: CYCLOBENZAPRINE 10 MG (FLEXERIL) TAB PO SCH (13:00)
[2022-06-21] MEDS ORDERED: polyethylene glycoL POWDER 17 GM (MIRALAX) PACK PO PRN (13:00)
[2022-06-21] MEDS ORDERED: ONDANSETRON 4 MG (ZOFRAN) ORAL DISSOLVE TAB PO PRN (13:00)
[2022-06-21] MEDS ORDERED: ONDANSETRON 4 MG/2 ML (SDV) Z0FRAN IV PRN (13:00)
--- NOTE | 2022-06-21 13:23 | Tele-ICU Progress Note ---
Subjective Date Seen by a Provider: Jun 21, 2022 Subjective/Events-last exam This virtual visit was conducted using real time audio/video. Thank you for asking us to see this patient for intentional pesticide ingestion, AMI, AMS Recent events: PMH:metastatic prostate cancer, asthma/COPD, DM2, hypothy. SH: smoking history: F FH: Non-contributory ROS:as in HPI PE: Appears comfortable. VSS. O2 sat 95% on RA HEENT: No obvious masses, adenopathy or JVD. Chest: clear to auscultation. CV: RRR S1 S2 No murmur or added sounds. Abd: Non-tender. Bowel sounds Y. : Unremarkable. Perkins Y. PRIVATE PILOT/psychiatric: .No obvious focal findings. Extremities: No edema. Capillary refill < 3 seconds. Skin: unremarkable. Results: Elevated BUN 20, Creat 1.39. Decreased Hb 9.2, K 3.5. CXR: not done.. Available chart/ vitals / labs / images reviewed. Video assessment done using teleICU camera, rest of exam as per RN. A/P: . Critical Care: critically ill patient. Cont. IVF, PRN analgesics, SSI. Will add duonebs with COPD history. Replace K. Discussed with RON Warren. Asked RN to reach out to eICU if any questions or concerns later. Time spent with patient/coordination of care with other health professionals (mins): 28 Sepsis Event Evaluation Height, Weight, BMI Height: 5'9.00" Weight: 251lbs. 0oz. 113.595679ti; 33.00 BMI Method:Actual Exam Exam Patient acknowledged, consented, and participated in this virtual visit which was conducted using real time audio/video Vital Signs Date Time Temp Pulse Resp B/P (MAP) Pulse Ox O2 Delivery O2 Flow Rate FiO2 06/21/22 12:20 36.8 77 18 152/71 95 Room Air 06/21/22 08:00 36.8 89 18 165/89 (114) 96 Room Air 06/21/22 04:21 36.8 72 18 122/68 (86) 95 Room Air 06/21/22 00:18 76 18 126/76 (93) 94 Room Air 06/20/22 23:23 74 18 95 Room Air 06/20/22 16:52 36.6 71 16 124/68 (86) 95 Room Air Height & Weight Height: 5'9.00" Weight: 251lbs. 0oz. 113.458033pu; 33.00 BMI Method:Actual General Appearance: No Apparent Distress, Thin Capillary Refill: Less Than 3 Seconds Peripheral Pulses: 1+ Dorsalis Pedis (R), 1+ Left Dors-Pedis (L) Gastrointestinal: normal bowel sounds, non tender, soft Extremity: No Pedal Edema (See free text.) Results Lab Laboratory Tests 06/20/22 17:15 Assessment/Plan Assessment/Plan See free text. Critical Care: Critically Ill Patient MARK FAUST MD Jun 21, 2022 13:23
[2022-06-21 13:24] VITALS: BP 124/68
[2022-06-21] MEDS: NS IV 1000 ML 1,000 ML IV SCH (13:30)
[2022-06-21] MEDS: MEROPENEM 1,000 MG in NS (IVPB) 100 ML IV SCH ×2 (13:31→20:53)
[2022-06-21] MEDS: DexMEDEtomidine 250 ML DRIP 250 ML IV SCH ×2 (13:32→23:25)
[2022-06-21 13:40] LABS: BASOPHILS # (AUTO) 0.1 10^3/uL (0.0-0.1); BASOPHILS % (AUTO) 1 % (0-10); EOSINOPHILS # (AUTO) 0.2 10^3/uL (0.0-0.3); EOSINOPHILS % (AUTO) 3 % (0-10); HEMATOCRIT 28 % (40-54); HEMOGLOBIN 8.7 g/dL (13.3-17.7); LYMPHOCYTES # (AUTO) 1.3 10^3/uL (1.0-4.0); LYMPHOCYTES % (AUTO) 17 % (12-44); MEAN CORPUSCULAR HEMOGLOBIN 26 pg (25-34); MEAN CORPUSCULAR HGB CONC 31 g/dL (32-36); MEAN CORPUSCULAR VOLUME 83 fL (80-99); MONOCYTES # (AUTO) 0.6 10^3/uL (0.0-1.0); MONOCYTES % (AUTO) 8 % (0-12); NEUTROPHILS # (AUTO) 5.4 10^3/uL (1.8-7.8); NEUTROPHILS % (AUTO) 72 % (42-75); PLATELET COUNT 205 10^3/uL (130-400); WHITE BLOOD COUNT 7.6 10^3/uL (4.3-11.0)
[2022-06-21] MEDS: ENOXAPARIN 40 MG/0.4 ML (LOVENOX) SYR SC SCH (13:46)
[2022-06-21 14:00] LABS: ALBUMIN 3.1 GM/DL (3.2-4.5)
[2022-06-21 14:01] LABS: POTASSIUM 3.7 MMOL/L (3.6-5.0)
[2022-06-21 14:02] LABS: CALCIUM 8.7 MG/DL (8.5-10.1)
[2022-06-21 14:03] LABS: TOTAL PROTEIN 7.8 GM/DL (6.4-8.2)
[2022-06-21 14:05] LABS: BILIRUBIN,TOTAL 0.2 MG/DL (0.1-1.0)
[2022-06-21 14:07] LABS: CREATININE SERUM 0.98 MG/DL (0.60-1.30)
[2022-06-21] MEDS ORDERED: VANCOMYCIN INJECTION 0.1 MG in NS (IVPB) 250 ML IV SCH (14:15)
[2022-06-21] MEDS ORDERED: VANCOMYCIN 2000 MG/NS 500 ML IVPB IV NR ×2 (15:00)
[2022-06-21] MEDS: inSUlin ASPART (NovoLOG) 1 UNIT/0.01 ML (CHARGE PER UNIT) SC SCH ×2 (16:28→20:52)
[2022-06-21] MEDS: DOCUSATE SODIUM 100 MG (COLACE) CAP PO SCH (20:52)
[2022-06-21] MEDS ORDERED: OLANZapine 5 MG ODT (ZyPREXA ZYDIS) PO ONE (21:00)
[2022-06-21] MEDS: VANCOMYCIN 1 GM/NS 250 ML IVPB IV SCH ×2 (22:41)
[2022-06-21] MEDS ORDERED: hydrALAZINE (APESOLINE) 20 MG/ML VIAL IV ONE (23:15)
[2022-06-22] MEDS: NS IV 1000 ML 1,000 ML IV SCH ×2 (03:26→10:57)
--- NOTE | 2022-06-22 05:50 | History & Physical-Hospitalist ---
History of Present Illness HPI/Chief Complaint CC: Altered mental status with sepsis HPI: This is a 62 yr old male known to me from recent H admission due to altered mental status. He was admitted for suicidal attempt with pesticide. He is a hospice candidate and that was decided with family and patient. He required Precedex due to altered mental status and history of meth use and brain injury from that. At this current time he doesn't speak to me. We will manage him accordingly. Source: RN/, old records Date Seen 06/22/22 Time Seen by a Provider: 09:00 Attending Physician Omar Bejarano MD PCP Admitting Physician: Elham Storm DO Attending Physician: Elham Storm DO Referring Physician Date of Admission Jun 21, 2022 at 13:00 Home Medications & Allergies Home Medications Reviewed patient Home Medication Reconciliation performed by pharmacy medication reconciliations process controls technician and/or nursing. Patients Allergies have been reviewed. Allergies Allergies Coded Allergies hydrocodone (Unverified Allergy, Unknown, hives, 02/08/19) aspirin (Unverified Adverse Reaction, Unknown, angioedema, 02/08/19) lisinopril (Unverified Adverse Reaction, Unknown, angioedema, 02/08/19) Past Fxbstov-Taystn-Oukmip Hx Patient Social History Marrital Status: single Employed/Student: unemployed Tobacco Use?: Yes Tobacco type used: Cigarettes Smoking Status: Former Smoker Substance use?: Yes Substance type: Methamphetamine Additional substance use comme: FORMER DRUG USER Alcohol Use?: No Pt feels they are or have been: No Immunizations Up To Date Date of Influenza Vaccine: May 20, 2022 First/Initial COVID19 Vaccinat: 03/08/2021 Second COVID19 Vaccination [place]: 10/06/2021 Current Status Advance Directives: Yes Communicates: Verbally Primary Language: Iraqi Preferred Spoken Language: Iraqi Implanted or Applied Medical D: None Past Medical History Surgeries: Orthopedic COPD High Cholesterol, Hypertension Chronic Back Pain Diabetes, Insulin dep Sleep Difficulties, Anxiety, Violent Behavior, Depression Nursing Suicide Risk Notes: Patient presents to the ED with c/o consumption of ortho home defense insecticide approximately 1 hour prior to arrival. Patient states, "I want to ." Does report that he vomited immediately after consuming chemical. Blood Disorders: No PMHx: HTN DMII Metastatic prostate cancer History of methamphetamine use Indwelling suprapubic catheter COPD Cardiomyopathy with decreased EF Family Medical History Unable to obtain Review of Systems ROS-Unable to Obtain: Patient refuses to speak to me Constitutional: see HPI Physical Exam Physical Exam Vital Signs Vital Signs - First Documented 06/20/22 06/21/22 06/21/22 16:52 13:24 13:56 Temp 36.6 Pulse 71 Resp 16 B/P (MAP) 124/68 (86) Pulse Ox 95 O2 Delivery Room Air O2 Flow Rate 0.00 FiO2 21 Capillary Refill : Less Than 3 Seconds Height, Weight, BMI Height: 5'9.00" Weight: 251lbs. 0oz. 113.046501qf; 33.23 BMI Method:Actual General Appearance: No Apparent Distress, Chronically ill, Obese Eyes: Right Eye Normal Inspection, Right Eye PERRL HEENT: PERRL/EOMI, Normal ENT Inspection, Pharynx Normal, Moist Mucous Membr anes Neck: Full Range of Motion, Normal Inspection, Non Tender Respiratory: Chest Non Tender, Lungs Clear, Normal Breath Sounds, No Accessory Muscle Use, No Respiratory Distress Cardiovascular: Regular Rate, Rhythm, No Edema, No Gallop, No JVD, No Murmur, Normal Peripheral Pulses Gastrointestinal: Normal Bowel Sounds, No Organomegaly, No Pulsatile Mass, Non Tender, Soft Back: Normal Inspection, No CVA Tenderness, No Vertebral Tenderness Extremity: Normal Capillary Refill, Normal Inspection, Normal Range of Motion, Non Tender, No Calf Tenderness, No Pedal Edema Neurologic/Psychiatric: Alert, No Motor/Sensory Deficits, Depressed Affect, Dis oriented Skin: Normal Color, Warm/Dry Lymphatic: No Adenopathy Results Results/Procedures Labs Laboratory Tests 06/21/22 13:34 06/22/22 15:30 06/23/22 04:44 Patient resulted labs reviewed. Assessment/Plan Admission Diagnosis (1) Delirium with suicide attempt with poison Status: Acute Assessment & Plan: CT head without acute findings, suspected to be related to UTI/sepsis. Reorient, minimize meds as much as possible. (2) UTI (urinary tract infection) due to urinary indwelling catheter Status: Acute Assessment & Plan: See sepsis diagnosis. Qualifiers: Qualified Codes: T83.510A - Infection and inflammatory reaction due to cystostomy catheter, initial encounter; N39.0 - Urinary tract infection, site not specified (3) Sepsis Status: Acute Assessment & Plan: Suspected to be secondary to UTI. Started on ceftriaxone based on previous results. Lactic acid initially and no end organ damage at admission. Qualifiers: Qualified Codes: A41.9 - Sepsis, unspecified organism (4) recent but not currently present acute respiratory failure Status: Acute Assessment & Plan: Moved to ICU, able to be weaned back to 5 lpm nasal cannula, ABG, BNP, CXR pending. Hold IVF. Flu and COVID swabs negative on admit. Qualifiers: Qualified Codes: J96.01 - Acute respiratory failure with hypoxia (5) Hypertension Status: Chronic Assessment & Plan: Resume home meds when needed. Qualifiers: Qualified Codes: I10 - Essential (primary) hypertension (6) COPD (chronic obstructive pulmonary disease) Status: Chronic Assessment & Plan: RT, duonebs. (7) Insulin dependent diabetes mellitus Status: Chronic Assessment & Plan: Sliding scale insulin. Diabetic diet when stable for PO intake. (8) Anemia Status: Chronic Qualifiers: Qualified Codes: D63.0 - Anemia in neoplastic disease (9) Hyponatremia Status: Acute (10) Prostate cancer metastatic to multiple sites Status: Chronic (11) DVT prophylaxis Status: Acute Assessment & Plan: Enoxaparin Plan: Needs hospice Precedex to control behaviors in the meantime Admission Status: Observation ELHAM STORM DO Jun 22, 2022 05:50
[2022-06-22] MEDS: MAGNESIUM 1 GM/100 ML IVPB 100 ML IV SCH (06:21)
[2022-06-22] MEDS: POTASSIUM CL 10MEQ/50ML IVPB 50 ML IV SCH (06:21)
[2022-06-22] MEDS: KCL 20 MEQ TAB (K-DUR) PO SCH (06:21)
[2022-06-22] MEDS: inSUlin ASPART (NovoLOG) 1 UNIT/0.01 ML (CHARGE PER UNIT) SC SCH ×4 (06:21→20:28)
[2022-06-22] MEDS: MEROPENEM 1,000 MG in NS (IVPB) 100 ML IV SCH ×3 (06:27→22:45)
[2022-06-22] MEDS: VANCOMYCIN 1 GM/NS 250 ML IVPB IV SCH ×4 (06:28→16:39)
[2022-06-22] MEDS: DOCUSATE SODIUM 100 MG (COLACE) CAP PO SCH ×2 (08:07→20:28)
--- NOTE | 2022-06-22 08:59 | Tele-ICU Progress Note ---
Subjective Date Seen by a Provider: Jun 22, 2022 Time Seen by a Provider: 08:55 Subjective/Events-last exam (Tele-ICU Physician , Progress Note ) Service provided via interactive audio and video telecommunications E-CARE system to a patient admitted to ICU bed in [facility]. Available chart/ vitals / labs / Images reviewed Video assessment done using teleICU camera, rest of exam as per RN Discussed with RN Events overnight : Afebrile hemodynamically stable Respiratory - ra I/O = + Drips: Pressors- no Consultants: Hospital course: Patient is seen today due to persistent and new A/P SUICIDE ATTEMPT,ingested about 1 mL of the pesticide and a spray bottle and then vomited almost immediately after. - poison control on case UDS: Positive for TCA/oxycodone/benzo - patient with cancer/ pain meds / - agree with hospice / palliative care ibviolvement , changing to commfort measure - on precedex now, use sedation protocol , refusing PO meds - plans : as above Uti -Indwelling suprapubic catheter - cont abx Anemia -stable Metastatic prostate cancer- chemo History of methamphetamine use Cardiomyopathy with decreased EF Lines : , (Central Line Necessity Reviewed) Perkins: suprapubic catheter OG: Nutrition: Analgesia: Anxiety/ delirium VTE Prophylaxis: sreekanth 40 Stress Ulcer Prophylaxis: Plans in collaboration with bedside consultants and IM MDs. Discussed with RN to reach out if any questions or concerns A total of 20 minutes of critical care time was devoted to this patient today, required to treat and/or prevent further deterioration of critical care condition ( as above ) . I am remotely monitoring this patient from another state. I am unable to do the bedside exam, and history/physical and pertinent information is taken from other notes in the computer and bedside staff. Sepsis Event Evaluation Height, Weight, BMI Height: 5'9.00" Weight: 251lbs. 0oz. 113.744300ct; 34.20 BMI Method:Actual Exam Exam Patient acknowledged, consented, and participated in this virtual visit which was conducted using real time audio/video Vital Signs Date Time Temp Pulse Resp B/P (MAP) Pulse Ox O2 Delivery O2 Flow Rate FiO2 06/22/22 08:20 96 Room Air 06/22/22 08:00 36.4 06/22/22 07:22 58 06/22/22 07:00 57 14 164/84 (110) 97 Room Air 06/22/22 06:00 62 21 168/86 (113) 96 Room Air 06/22/22 05:00 54 23 163/86 (120) 94 Room Air 06/22/22 04:00 94 Room Air 06/22/22 04:00 53 20 150/78 (107) 96 Room Air 06/22/22 03:00 51 26 182/98 (135) 94 Room Air 06/22/22 02:00 51 24 177/86 (125) 95 Room Air 06/22/22 01:00 50 06/22/22 01:00 50 16 156/83 (116) 95 Room Air 06/22/22 00:01 94 Room Air 06/22/22 00:00 63 10 144/90 (114) 94 Room Air 06/21/22 23:25 56 191/100 06/21/22 23:00 53 23 196/98 (139) 96 Room Air 06/21/22 22:40 50 27 192/98 (131) 95 Room Air 06/21/22 22:00 55 27 180/96 (130) 94 Room Air 06/21/22 21:00 52 25 171/97 (126) 95 06/21/22 20:56 54 26 156/84 (104) 94 06/21/22 20:56 54 22 156/84 (104) 94 Room Air 06/21/22 20:45 57 24 176/97 (134) 93 06/21/22 20:30 56 25 172/93 (125) 94 06/21/22 20:15 55 23 171/92 (127) 94 06/21/22 20:01 36.4 06/21/22 20:00 94 Room Air 06/21/22 20:00 55 18 162/82 (118) 95 06/21/22 20:00 55 25 162/82 (118) 96 Room Air 06/21/22 19:30 59 25 156/84 (110) 94 06/21/22 19:15 53 22 162/87 (121) 94 06/21/22 19:00 52 06/21/22 19:00 54 23 169/91 (127) 06/21/22 19:00 52 23 169/91 (127) 96 Room Air 06/21/22 18:00 54 21 157/86 (109) 94 Room Air 06/21/22 17:50 57 131/71 06/21/22 17:00 57 24 131/71 (91) 94 Room Air 06/21/22 16:00 96 Room Air 06/21/22 16:00 36.2 06/21/22 16:00 60 21 127/72 (90) 94 Room Air 06/21/22 15:00 83 19 144/74 (97) 95 Room Air 06/21/22 14:00 78 16 172/98 (122) 96 Room Air 06/21/22 13:59 77 176/91 06/21/22 13:56 99 Room Air 0.00 06/21/22 13:32 77 163/120 06/21/22 13:24 36.6 71 95 21 06/21/22 13:23 75 06/21/22 13:00 84 14 166/90 (115) 94 Room Air 06/21/22 13:00 96 Room Air 06/21/22 12:20 36.8 77 18 152/71 95 Room Air I & O 06/22/22 07:00 Intake Total 1215 ml Output Total 2275 ml Balance -1060 ml Height & Weight Height: 5'9.00" Weight: 251lbs. 0oz. 113.239769tr; 34.20 BMI Method:Actual General Appearance: No Apparent Distress, Thin Capillary Refill: Less Than 3 Seconds Peripheral Pulses: 1+ Dorsalis Pedis (R), 1+ Left Dors-Pedis (L) Gastrointestinal: normal bowel sounds, non tender, soft Extremity: No Pedal Edema (See free text.) Results Lab Laboratory Tests 06/20/22 17:15 06/21/22 13:34 Assessment/Plan Assessment/Plan 1 DIANA RESTREPO MD Jun 22, 2022 08:59
[2022-06-22] MEDS: hydrALAZINE (APESOLINE) 20 MG/ML VIAL IV SCH ×5 (09:08→23:04)
[2022-06-22] MEDS ORDERED: OXYC5TAB PO (10:41)
[2022-06-22] MEDS ORDERED: DIVA125C10 PO ×2 (10:41)
[2022-06-22] MEDS ORDERED: PARO20TA5 PO (10:41)
[2022-06-22] MEDS ORDERED: MELA3TAB39 PO (10:41)
[2022-06-22] MEDS ORDERED: TRAM50TA3 PO (10:41)
[2022-06-22] MEDS ORDERED: GABA300C PO (10:41)
[2022-06-22] MEDS ORDERED: ZIPR40CA23 PO (10:41)
[2022-06-22] MEDS ORDERED: HALO5SYR3 IJ (10:41)
[2022-06-22] MEDS: DexMEDEtomidine 250 ML DRIP 250 ML IV SCH (10:56)
[2022-06-22] MEDS: HYDROmorphone 2 MG/ML VIAL (DILAUDID) IV PRN ×2 (10:59→13:52)
[2022-06-22] MEDS: RT-ALBUTEROL/IPRATROPIUM 3 ML (DUONEB) VIAL INH SCH ×2 (11:00→19:20)
[2022-06-22] MEDS: LORazepam INJ 2 MG/ML (ATIVAN) VIAL IVP PRN ×2 (11:07→22:44)
[2022-06-22] MEDS: ENOXAPARIN 40 MG/0.4 ML (LOVENOX) SYR SC SCH (12:33)
[2022-06-22] MEDS ORDERED: TROUGH ORDER-PHARMACY XX ONE (15:00)
[2022-06-22 15:43] LABS: BASOPHILS # (AUTO) 0.1 10^3/uL (0.0-0.1); BASOPHILS % (AUTO) 1 % (0-10); EOSINOPHILS # (AUTO) 0.3 10^3/uL (0.0-0.3); EOSINOPHILS % (AUTO) 5 % (0-10); HEMATOCRIT 29 % (40-54); LYMPHOCYTES # (AUTO) 1.2 10^3/uL (1.0-4.0); LYMPHOCYTES % (AUTO) 18 % (12-44); MEAN CORPUSCULAR HEMOGLOBIN 26 pg (25-34); MEAN CORPUSCULAR HGB CONC 31 g/dL (32-36); MEAN CORPUSCULAR VOLUME 84 fL (80-99); MEAN PLATELET VOLUME 10.5 fL (9.0-12.2); MONOCYTES # (AUTO) 0.5 10^3/uL (0.0-1.0); MONOCYTES % (AUTO) 7 % (0-12); NEUTROPHILS # (AUTO) 4.4 10^3/uL (1.8-7.8); NEUTROPHILS % (AUTO) 69 % (42-75); PLATELET COUNT 138 10^3/uL (130-400); WHITE BLOOD COUNT 6.4 10^3/uL (4.3-11.0)
[2022-06-22 15:54] LABS: ALBUMIN 2.9 GM/DL (3.2-4.5); POTASSIUM 5.4 MMOL/L (3.6-5.0)
[2022-06-22 15:55] LABS: CALCIUM 8.6 MG/DL (8.5-10.1)
[2022-06-22 15:57] LABS: TOTAL PROTEIN 8.1 GM/DL (6.4-8.2)
[2022-06-22 15:58] LABS: BILIRUBIN,TOTAL 0.2 MG/DL (0.1-1.0)
[2022-06-22 16:00] LABS: PHOSPHORUS 3.5 MG/DL (2.3-4.7)
[2022-06-22 16:01] LABS: CREATININE SERUM 0.8 MG/DL (0.60-1.30)
[2022-06-22 16:04] LABS: MAGNESIUM 1.6 MG/DL (1.6-2.4)
[2022-06-22] MEDS: diphenhydrAMINE 50 MG/ML INJ (BENADRYL) IVP PRN (20:27)
[2022-06-22] MEDS ORDERED: WATER (STERILE) FOR INJECTION 10 ML ONE (22:57)
[2022-06-22] MEDS: ZIPRASIDONE 20 MG INJ (GEODON) VIAL IM PRN (22:58)
[2022-06-23] MEDS: hydrALAZINE (APESOLINE) 20 MG/ML VIAL IV SCH ×7 (04:45→23:53)
[2022-06-23] MEDS: DexMEDEtomidine 250 ML DRIP 250 ML IV SCH ×3 (04:47→19:30)
[2022-06-23 05:26] LABS: BASOPHILS # (AUTO) 0.1 10^3/uL (0.0-0.1); BASOPHILS % (AUTO) 2 % (0-10); EOSINOPHILS # (AUTO) 0.3 10^3/uL (0.0-0.3); EOSINOPHILS % (AUTO) 7 % (0-10); HEMATOCRIT 28 % (40-54); HEMOGLOBIN 8.6 g/dL (13.3-17.7); LYMPHOCYTES # (AUTO) 1.1 10^3/uL (1.0-4.0); LYMPHOCYTES % (AUTO) 25 % (12-44); MEAN CORPUSCULAR HEMOGLOBIN 25 pg (25-34); MEAN CORPUSCULAR HGB CONC 31 g/dL (32-36); MEAN CORPUSCULAR VOLUME 82 fL (80-99); MEAN PLATELET VOLUME 9.6 fL (9.0-12.2); MONOCYTES # (AUTO) 0.5 10^3/uL (0.0-1.0); MONOCYTES % (AUTO) 10 % (0-12); NEUTROPHILS # (AUTO) 2.5 10^3/uL (1.8-7.8); NEUTROPHILS % (AUTO) 56 % (42-75); PLATELET COUNT 165 10^3/uL (130-400); WHITE BLOOD COUNT 4.5 10^3/uL (4.3-11.0)
[2022-06-23 05:49] LABS: ALBUMIN 2.8 GM/DL (3.2-4.5); BILIRUBIN,TOTAL 0.3 MG/DL (0.1-1.0); CALCIUM 8.8 MG/DL (8.5-10.1); CREATININE SERUM 0.81 MG/DL (0.60-1.30); MAGNESIUM 1.5 MG/DL (1.6-2.4); PHOSPHORUS 3.8 MG/DL (2.3-4.7); POTASSIUM 3.9 MMOL/L (3.6-5.0); TOTAL PROTEIN 7.3 GM/DL (6.4-8.2)
[2022-06-23] MEDS: MAGNESIUM 1 GM/100 ML IVPB 100 ML IV SCH ×3 (05:54→09:08)
[2022-06-23] MEDS: POTASSIUM CL 10MEQ/50ML IVPB 50 ML IV SCH (05:54)
[2022-06-23] MEDS: KCL 20 MEQ TAB (K-DUR) PO SCH (05:54)
[2022-06-23 05:58] LABS: VANCOMYCIN,TROUGH 14.4 UG/ML (10.0-20.0)
[2022-06-23] MEDS ORDERED: TROUGH ORDER-PHARMACY XX NR (06:00)
[2022-06-23] MEDS: MEROPENEM 1,000 MG in NS (IVPB) 100 ML IV SCH ×3 (06:03→21:33)
[2022-06-23] MEDS: inSUlin ASPART (NovoLOG) 1 UNIT/0.01 ML (CHARGE PER UNIT) SC SCH ×4 (06:03→20:09)
[2022-06-23] MEDS: RT-ALBUTEROL/IPRATROPIUM 3 ML (DUONEB) VIAL INH SCH ×2 (07:48→21:57)
[2022-06-23] MEDS ORDERED: VANCOMYCIN 1 GM/NS 250 ML IVPB IV SCH ×2 (08:00)
--- NOTE | 2022-06-23 08:30 | Progress Note - Hospitalist ---
Subjective HPI/CC On Admission Date Seen by Provider: Jun 23, 2022 Time Seen by Provider: 08:30 CC: Altered mental status with sepsis HPI: This is a 62 yr old male known to me from recent H admission due to altered mental status. He was admitted for suicidal attempt with pesticide. He is a hospice candidate and that was decided with family and patient. He required Precedex due to altered mental status and history of meth use and brain injury from that. At this current time he doesn't speak to me. We will manage him accordingly. Subjective/Events-last exam Pt is about the same Precedex is handling the aggression Checked meds and labs No falls Will need to go to a prison Review of Systems Neurological: Confusion Objective Exam Vital Signs Vital Signs Date Time Temp Pulse Resp B/P (MAP) Pulse Ox O2 Delivery O2 Flow Rate FiO2 06/24/22 05:00 62 39 155/74 (108) Room Air 06/24/22 04:00 94 06/24/22 00:01 36.2 06/22/22 16:00 0.00 0.00 06/21/22 13:24 21 Capillary Refill : Less Than 3 Seconds General Appearance: No Apparent Distress, WD/WN, Chronically ill, Obese Respiratory: Lungs Clear, Normal Breath Sounds Cardiovascular: Regular Rate, Rhythm Neurologic/Psychiatric: Alert, Depressed Affect, Disoriented Results/Procedures Lab Patient resulted labs reviewed. Assessment/Plan Assessment and Plan Assess & Plan/Chief Complaint Assessment/Plan Admission Diagnosis (1) Delirium with suicide attempt with poison Status: Acute Assessment & Plan: CT head without acute findings, suspected to be related to UTI/sepsis. Reorient, minimize meds as much as possible. (2) UTI (urinary tract infection) due to urinary indwelling catheter Status: Acute Assessment & Plan: See sepsis diagnosis. Qualifiers: Qualified Codes: T83.510A - Infection and inflammatory reaction due to cystostomy catheter, initial encounter; N39.0 - Urinary tract infection, site not specified (3) Sepsis Status: Acute Assessment & Plan: Suspected to be secondary to UTI. Started on ceftriaxone based on previous results. Lactic acid initially and no end organ damage at admission. Qualifiers: Qualified Codes: A41.9 - Sepsis, unspecified organism (4) recent but not currently present acute respiratory failure Status: Acute Assessment & Plan: Moved to ICU, able to be weaned back to 5 lpm nasal cannula, ABG, BNP, CXR pending. Hold IVF. Flu and COVID swabs negative on admit. Qualifiers: Qualified Codes: J96.01 - Acute respiratory failure with hypoxia (5) Hypertension Status: Chronic Assessment & Plan: Resume home meds when needed. Qualifiers: Qualified Codes: I10 - Essential (primary) hypertension (6) COPD (chronic obstructive pulmonary disease) Status: Chronic Assessment & Plan: RT, duonebs. (7) Insulin dependent diabetes mellitus Status: Chronic Assessment & Plan: Sliding scale insulin. Diabetic diet when stable for PO intake. (8) Anemia Status: Chronic Qualifiers: Qualified Codes: D63.0 - Anemia in neoplastic disease (9) Hyponatremia Status: Acute (10) Prostate cancer metastatic to multiple sites Status: Chronic (11) DVT prophylaxis Status: Acute Assessment & Plan: Enoxaparin Plan: Needs hospice Precedex to control behaviors in the meantime Admission Status: Observation Critical Care Critically Ill Patient ROS ZIMMER DO Jun 23, 2022 08:30
[2022-06-23] MEDS: LORazepam INJ 2 MG/ML (ATIVAN) VIAL IVP PRN ×3 (09:27→20:10)
[2022-06-23] MEDS: ENOXAPARIN 40 MG/0.4 ML (LOVENOX) SYR SC SCH (13:35)
[2022-06-23] MEDS: DOCUSATE SODIUM 100 MG (COLACE) CAP PO SCH ×2 (16:09→20:09)
[2022-06-23] MEDS: NS IV 1000 ML 1,000 ML IV SCH ×2 (16:23→21:34)
[2022-06-23] MEDS: ZIPRASIDONE 20 MG INJ (GEODON) VIAL IM PRN (22:10)
[2022-06-23] MEDS: diphenhydrAMINE 50 MG/ML INJ (BENADRYL) IVP PRN (23:53)
[2022-06-24] MEDS: DexMEDEtomidine 250 ML DRIP 250 ML IV SCH ×2 (02:41→09:07)
[2022-06-24] MEDS: hydrALAZINE (APESOLINE) 20 MG/ML VIAL IV SCH ×6 (04:27→21:37)
[2022-06-24] MEDS: LORazepam INJ 2 MG/ML (ATIVAN) VIAL IVP PRN ×3 (05:10→16:35)
[2022-06-24] MEDS: NS IV 1000 ML 1,000 ML IV SCH (05:11)
[2022-06-24] MEDS: MEROPENEM 1,000 MG in NS (IVPB) 100 ML IV SCH ×3 (05:22→21:38)
[2022-06-24] MEDS: MAGNESIUM 1 GM/100 ML IVPB 100 ML IV SCH (05:39)
[2022-06-24] MEDS: KCL 20 MEQ TAB (K-DUR) PO SCH (05:39)
[2022-06-24] MEDS: POTASSIUM CL 10MEQ/50ML IVPB 50 ML IV SCH (05:39)
[2022-06-24] MEDS: inSUlin ASPART (NovoLOG) 1 UNIT/0.01 ML (CHARGE PER UNIT) SC SCH ×4 (05:40→21:10)
[2022-06-24] MEDS: RT-ALBUTEROL/IPRATROPIUM 3 ML (DUONEB) VIAL INH SCH ×2 (06:39→20:47)
[2022-06-24] MEDS ORDERED: TROUGH ORDER-PHARMACY XX ONE (07:00)
[2022-06-24] MEDS: DOCUSATE SODIUM 100 MG (COLACE) CAP PO SCH ×2 (08:01→20:58)
[2022-06-24] MEDS: PARoxetine 20 MG (PAXIL) TAB PO SCH (11:22)
[2022-06-24] MEDS: LEVOTHYROXINE 50 MCG (LEVOTHROID) TAB PO SCH (11:22)
[2022-06-24] MEDS: amLODIPine 5 MG (NORVASC) TAB PO SCH (11:23)
[2022-06-24] MEDS: ZIPRASIDONE 20 MG (GEODON) CAP PO SCH ×2 (11:23→17:26)
--- NOTE | 2022-06-24 11:39 | Tele-ICU Progress Note ---
Subjective Date Seen by a Provider: Jun 24, 2022 Time Seen by a Provider: 11:41 Subjective/Events-last exam (Tele-ICU Physician , Progress Note ) Service provided via interactive audio and video telecommunications E-CARE system to a patient admitted to ICU bed in [facility]. Available chart/ vitals / labs / Images reviewed Video assessment done using teleICU camera, rest of exam as per RN Discussed with RN Events overnight : Afebrile hemodynamically stable Respiratory - ra I/O = + Drips: Pressors- no Consultants: Hospital course: Patient is seen today due to persistent and new A/P SUICIDE ATTEMPT,ingested about 1 mL of the pesticide and a spray bottle and then vomited almost immediately after. - poison control on case - no consequenses - susicidal assessment as per bedside team Delirium, ? TME UDS: Positive for TCA/oxycodone/benzo - on precedex now, use sedation protocol , refusing PO meds Uti -Indwelling suprapubic catheter - cont abx-ceftriaxone based on previous results UDS: Positive for TCA/oxycodone/benzo - patient with cancer/ pain meds / - agree with hospice / palliative care ibviolvement , changing to commfort measure - on precedex now, use sedation protocol , refusing PO meds - plans : as above Anemia -stable DMII - ISS COPD - stable Metastatic prostate cancer- chemo History of methamphetamine use Cardiomyopathy with decreased EF patient with cancer/ pain meds / - agree with hospice / palliative care inviolvement Lines : , (Central Line Necessity Reviewed) Perkins: suprapubic catheter OG: Nutrition: Analgesia: Anxiety/ delirium VTE Prophylaxis: sreekanth 40 Stress Ulcer Prophylaxis: Plans in collaboration with bedside consultants and IM MDs. Discussed with RN to reach out if any questions or concerns A total of 20 minutes of critical care time was devoted to this patient today, required to treat and/or prevent further deterioration of critical care condition ( as above ) . I am remotely monitoring this patient from another state. I am unable to do the bedside exam, and history/physical and pertinent information is taken from other notes in the computer and bedside staff. Sepsis Event Evaluation Height, Weight, BMI Height: 5'9.00" Weight: 251lbs. 0oz. 113.557429zc; 34.20 BMI Method:Actual Exam Exam Patient acknowledged, consented, and participated in this virtual visit which was conducted using real time audio/video Vital Signs Date Time Temp Pulse Resp B/P (MAP) Pulse Ox O2 Delivery O2 Flow Rate FiO2 06/24/22 10:00 51 29 151/77 (101) 95 Room Air 06/24/22 09:07 53 132/70 06/24/22 09:00 53 26 132/70 (90) 95 Room Air 06/24/22 09:00 95 Room Air 06/24/22 09:00 36.1 06/24/22 08:00 52 36 156/76 (102) 96 Room Air 06/24/22 07:15 49 06/24/22 07:00 49 22 161/77 (105) Room Air 06/24/22 06:00 50 33 140/71 (94) Room Air 06/24/22 05:00 62 39 155/74 (108) Room Air 06/24/22 04:00 52 33 164/78 (121) Room Air 06/24/22 04:00 94 Room Air 06/24/22 03:00 52 33 151/72 (111) Room Air 06/24/22 02:41 56 139/78 06/24/22 02:25 59 24 139/78 (107) Room Air 06/24/22 01:00 67 06/24/22 01:00 67 20 130/87 (105) 98 Room Air 06/24/22 00:01 36.2 06/24/22 00:00 62 16 130/71 (99) 99 Room Air 06/23/22 23:59 96 Room Air 06/23/22 23:00 67 20 143/69 (94) 97 Room Air 06/23/22 22:00 58 32 151/77 (109) 99 Room Air 06/23/22 21:58 98 Room Air 06/23/22 21:00 54 30 141/72 (106) 96 Room Air 06/23/22 20:00 36.4 55 29 152/75 (112) 98 Room Air 06/23/22 20:00 96 Room Air 06/23/22 19:30 56 163/87 06/23/22 19:06 55 21 163/87 (121) 98 Room Air 06/23/22 19:00 60 21 136/121 (127) 96 Room Air 06/23/22 19:00 58 06/23/22 18:00 49 27 143/71 (95) 94 Room Air 06/23/22 17:00 52 25 147/83 (104) 95 Room Air 06/23/22 16:00 Room Air 06/23/22 16:00 54 28 179/87 (117) 97 Room Air 06/23/22 15:09 36.2 06/23/22 15:00 54 25 166/117 (133) Room Air 06/23/22 14:00 52 25 147/73 (97) Room Air 06/23/22 13:15 54 160/88 06/23/22 13:00 53 14 160/88 (112) 96 Room Air 06/23/22 12:43 52 06/23/22 12:00 Room Air 06/23/22 12:00 51 14 155/81 (105) 96 Room Air I & O 06/24/22 06:58 Intake Total 2440 ml Output Total 1875 ml Balance 565 ml Height & Weight Height: 5'9.00" Weight: 251lbs. 0oz. 113.090678du; 34.20 BMI Method:Actual General Appearance: No Apparent Distress, WD/WN, Chronically ill, Obese HEENT: PERRL/EOMI, Normal ENT Inspection, Pharynx Normal, Moist Mucous Membranes Neck: Full Range of Motion, Normal Inspection, Non Tender Respiratory: Lungs Clear, Normal Breath Sounds Cardiovascular: Regular Rate, Rhythm Capillary Refill: Less Than 3 Seconds Peripheral Pulses: 1+ Dorsalis Pedis (R), 1+ Left Dors-Pedis (L) Gastrointestinal: normal bowel sounds, non tender, soft Extremity: Normal Capillary Refill, Normal Inspection, Normal Range of Motion, Non Tender, No Calf Tenderness, No Pedal Edema Neurologic/Psychiatric: Alert, Depressed Affect, Disoriented Skin: Normal Color, Warm/Dry Lymphatic: No Adenopathy Results Lab Laboratory Tests 06/22/22 15:30 06/23/22 04:44 Assessment/Plan Assessment/Plan 1 DIANA RESTRPEO MD Jun 24, 2022 11:39
[2022-06-24] MEDS: ENOXAPARIN 40 MG/0.4 ML (LOVENOX) SYR SC SCH (12:18)
[2022-06-24] MEDS: GABAPENTIN 300 MG (NEURONTIN) CAP PO SCH ×3 (12:21→21:01)
[2022-06-24] MEDS: RT-ALBUTEROL/IPRATROPIUM 3 ML (DUONEB) VIAL INH PRN (13:04)
--- NOTE | 2022-06-24 13:08 | Progress Note - Hospitalist ---
KOJO MARSHALL 06/24/22 1308: Subjective HPI/CC On Admission Date Seen by Provider: Jun 24, 2022 Time Seen by Provider: 09:20 CC: Altered mental status with sepsis HPI: This is a 62 yr old male known to me from recent [facility] admission due to altered mental status. He was admitted for suicidal attempt with pesticide. He is a hospice candidate and that was decided with family and patient. He required Precedex due to altered mental status and history of meth use and brain injury from that. At this current time he doesn't speak to me. We will manage him accordingly. Subjective/Events-last exam Patient is a 62 yo M admitted from the ER after a suicide attempt by ingestion of pesticide as well as sepsis secondary to UTI. He seemed lethargic, refuses to speak during the exam today, and refuses physical exam. Focused Exam Sepsis Stage: Sepsis (Sepsis cannot be entirely ruled out due to previous fulfillment of SIRS criteria. At this point, the patient only meets respiratory rate at 31 with a known source of infection) Objective Exam Vital Signs Vital Signs Date Time Temp Pulse Resp B/P (MAP) Pulse Ox O2 Delivery O2 Flow Rate FiO2 06/24/22 12:00 73 31 169/85 (113) 95 Room Air 06/24/22 09:00 36.1 06/22/22 16:00 0.00 0.00 06/21/22 13:24 21 Capillary Refill : Less Than 3 Seconds General Appearance: No Apparent Distress, Chronically ill, Obese Neurologic/Psychiatric: Depressed Affect Skin: Normal Color Comments Patient refused physical exam Results/Procedures Lab Patient resulted labs reviewed. Meds Home Meds Acetaminophen (Tylenol Extra Strength) 500 Mg Tablet, 1,000 MG PO Q8H PRN for PAIN-MILD (1-4), (Reported) Entered as Reported by: MARS BAZZI on 06/05/22 1116 Albuterol Sulfate (Proventil Hfa) 6.7 Gm Hfa.aer.ad, 1 PUFF INH Q4H PRN for SHORTNESS OF BREATH, (Reported) Entered as Reported by: MARS BAZZI on 06/05/22 1131 Amlodipine Besylate (Amlodipine Besylate) 5 Mg Tablet, 5 MG PO DAILY, (Reported) Entered as Reported by: MARS BAZZI on 06/05/22 1116 Calcium Carbonate (Antacid) 200 Mg Calcium (500 Mg) Tab.chew, 2 EA PO ACHS, (Reported) Entered as Reported by: MARS BAZZI on 06/05/221115 Cholecalciferol (Vitamin D3) (Vitamin D3) 1,250 Mcg (43713 Unit) Capsule, 1,250 MCG PO WED, (Reported) Entered as Reported by: MARS BAZZI on 06/05/22 112 Clonidine (Clonidine TTS 1 Patch) 0.1 Mg/24 Hour Patch.tdwk, 0.1 MG TD Mo@0900 Prescribed by: ELHAM ZIMMER on 06/10/2251 Cyclobenzaprine HCl (Cyclobenzaprine HCl) 10 Mg Tablet, 10 MG PO 0800,1400,1999, (Reported) Entered as Reported by: MARS BAZZI on 06/05/221115 Diazepam (Diazepam) 5 Mg Tablet, 5 MG PO 1999, (Reported) Entered as Reported by: MARS BAZZI on 06/05/221125 Gabapentin (Gabapentin) 600 Mg Tablet, 600 MG PO 0800,1400,1999, (Reported) Entered as Reported by: MARS BAZZI on 06/05/221115 Insulin Glargine-Yfgn (Insulin Glargine-Yfgn) 100 Unit/Ml (3 Ml) Insuln.pen, 10 UNITS SC DAILY, (Reported) Entered as Reported by: MARS BAZZI on 06/05/221115 Levothyroxine Sodium (Levothyroxine Sodium) 50 Mcg Tablet, 50 MCG PO DAILY, (Reported) Entered as Reported by: MARS BAZZI on 06/05/221115 Metoprolol Tartrate (Metoprolol Tartrate) 50 Mg Tablet, 50 MG PO 0800,1700, (Reported) Entered as Reported by: MARS BAZZI on 06/05/221125 Mirtazapine (Mirtazapine) 30 Mg Tablet, 30 MG PO HS, (Reported) Entered as Reported by: MARS BAZZI on 06/05/221115 Morphine Sulfate (Morphine Sulfate ER) 15 Mg Tablet.er, 15 MG PO 0600,1800, (Reported) Entered as Reported by: MARS BAZZI on 06/05/221115 Oxybutynin Chloride (Oxybutynin Chloride) 5 Mg Tablet, 5 MG PO BID, (Reported) Entered as Reported by: MARS BAZZI on 06/05/22 112 Oxycodone HCl (Oxycodone HCl) 10 Mg Tablet, 10 MG PO Q6H PRN for PAIN- BREAKTHROUGH, (Reported) Entered as Reported by: MARS BAZZI on 06/05/22 111 Pantoprazole Sodium (Pantoprazole Sodium) 40 Mg Tablet.dr, 40 MG PO DAILY, (Reported) Entered as Reported by: MARS BAZZI on 06/05/221115 Polyethylene Glycol 3350 ([id number]) 17 Gram/Dose Powder, 17 GM PO DAILY, (Reported) Entered as Reported by: MARS BAZZI on 06/05/221115 Sennosides/Docusate Sodium (Stimulant Laxative Plus Tablet) 8.6 Mg-50 Mg Tablet, 1 EA PO BID, (Reported) Entered as Reported by: MARS BAZZI on 06/05/22 111 Sertraline HCl (Sertraline HCl) 100 Mg Tablet, 100 MG PO DAILY, (Reported) Entered as Reported by: MARS BAZZI on 06/05/221115 Tolnaftate (Fungoid-D) 1 % Cream..g., 1 APPLIC TP BID, (Reported) Entered as Reported by: MARS BAZZI on 06/05/221125 [Melatonin] 12 TAB, 12 MG PO HS, (Reported) Entered as Reported by: MARS BAZZI on 06/05/221115 Hydralazine, meropenem, enoxaparin sodium, oxycodone Assessment/Plan Assessment and Plan Assess & Plan/Chief Complaint Suicide Attempt - Continue monitoring mental state, organ function, consult with behavioral health for continued psychiatric needs Sepsis secondary to UTI - Continue antibiotic treatment with meropenem DVT prophylaxis - enoxaparin sodium Prostate cancer - continue chemotherapy Psychiatric disorders - lorazepam, ziprazidone, paroxetine Hypertension - continue medical management COPD - continue medical management and monitor for respiratory symptoms Insulin dependent diabetes mellitus - continue medical management, sliding scale insulin for control of hyperglycemia Patient to be transferred to 4th floor for further treatment Clinical Quality Measures DVT/VTE Risk/Contraindication: VTE Addressed: Yes VTE Present on Admission: No ELHAM ZIMMER DO 06/24/222041: Subjective Subjective/Events-last exam Pt is about the same Transferring to the floor Overall poor prognosis Needs to go to [facility] on hospice at discharge Precedex weaned down to 1 Assessment/Plan Assessment and Plan Assess & Plan/Chief Complaint hospice Supervisory-Addendum Brief Verification & Attestation Participated in pt care: history, MDM, physical Personally performed: exam, history, MDM, supervision of care Care discussed with: Medical Student Procedures: n/a Results interpretation: Verified all documentation Verification and Attestation of Medical Student E/M Service A medical student performed and documented this service in my presence. I reviewed and verified all information documented by the medical student and made modifications to such information, when appropriate. I personally performed the physical exam and medical decision making. Elham Zimmer, Jun 24, 2022,20:44 KOJO MARSHALL Jun 24, 2022 13:08 ELHAM ZIMMER DO Jun 24, 2022 20:42
[2022-06-24] MEDS: DIVALPROX SPRINKLE 125 MG (DEPAKOTE) CAP PO SCH ×2 (13:45→21:01)
[2022-06-24] MEDS: HALOPERIDOL 5 MG/ML (HALDOL) VIAL IM PRN ×2 (13:46→14:21)
[2022-06-24] MEDS: HYDROmorphone 2 MG/ML VIAL (DILAUDID) IVP PRN (17:01)
[2022-06-24] MEDS: meTOprolol TARTRATE 50 MG (LOPRESSOR) TAB PO SCH (17:25)
[2022-06-24] MEDS: MELATONIN 3 MG TABLET PO SCH ×2 (20:56→20:58)
[2022-06-24] MEDS: SENNA W/DOCUSATE (SENOKOT S) TABLET PO SCH (20:58)
[2022-06-25] MEDS: HALOPERIDOL 5 MG/ML (HALDOL) VIAL IM PRN (01:05)
[2022-06-25] MEDS: hydrALAZINE (APESOLINE) 20 MG/ML VIAL IV SCH ×7 (01:16→20:02)
[2022-06-25] MEDS: diphenhydrAMINE 50 MG/ML INJ (BENADRYL) IVP PRN (01:16)
[2022-06-25] MEDS: ZIPRASIDONE 20 MG INJ (GEODON) VIAL IM PRN (03:37)
[2022-06-25] MEDS: inSUlin ASPART (NovoLOG) 1 UNIT/0.01 ML (CHARGE PER UNIT) SC SCH ×4 (06:36→21:04)
[2022-06-25] MEDS: MEROPENEM 1,000 MG in NS (IVPB) 100 ML IV SCH ×3 (06:37→22:38)
[2022-06-25] MEDS: LEVOTHYROXINE 50 MCG (LEVOTHROID) TAB PO SCH (06:37)
[2022-06-25] MEDS: RT-ALBUTEROL/IPRATROPIUM 3 ML (DUONEB) VIAL INH SCH ×2 (06:54→20:24)
[2022-06-25] MEDS: ZIPRASIDONE 20 MG (GEODON) CAP PO SCH ×2 (07:55→17:07)
[2022-06-25] MEDS: DOCUSATE SODIUM 100 MG (COLACE) CAP PO SCH ×2 (07:55→20:48)
[2022-06-25] MEDS: DIVALPROX SPRINKLE 125 MG (DEPAKOTE) CAP PO SCH ×3 (07:55→20:48)
[2022-06-25] MEDS: SENNA W/DOCUSATE (SENOKOT S) TABLET PO SCH ×2 (07:56→20:48)
[2022-06-25] MEDS: PANTOPRAZOLE 40 MG (PROTONIX) TAB PO SCH (07:56)
[2022-06-25] MEDS: amLODIPine 5 MG (NORVASC) TAB PO SCH ×2 (07:56→20:48)
[2022-06-25] MEDS: polyethylene glycoL POWDER 17 GM (MIRALAX) PACK PO SCH (07:56)
[2022-06-25] MEDS: PARoxetine 20 MG (PAXIL) TAB PO SCH (07:56)
[2022-06-25] MEDS: meTOprolol TARTRATE 50 MG (LOPRESSOR) TAB PO SCH ×2 (07:56→15:52)
[2022-06-25] MEDS: GABAPENTIN 300 MG (NEURONTIN) CAP PO SCH ×4 (08:00→20:48)
[2022-06-25 08:04] VITALS: BP 154/88
[2022-06-25] MEDS ORDERED: polyethylene glycoL Bowel Prep(MIRALAX) 238 GM PO SCH (09:00)
[2022-06-25 10:17] VITALS: BP 127/70
[2022-06-25 11:01] VITALS: BP 144/68
[2022-06-25] MEDS: ENOXAPARIN 40 MG/0.4 ML (LOVENOX) SYR SC SCH (12:11)
--- NOTE | 2022-06-25 13:33 | Progress Note - Hospitalist ---
KOJO MARSHALL 06/25/22 1333: Subjective HPI/CC On Admission Date Seen by Provider: Jun 25, 2022 Time Seen by Provider: 08:45 CC: Altered mental status with sepsis HPI: This is a 62 yr old male known to me from recent [facility] admission due to altered mental status. He was admitted for suicidal attempt with pesticide. He is a hospice candidate and that was decided with family and patient. He required Precedex due to altered mental status and history of meth use and brain injury from that. At this current time he doesn't speak to me. We will manage him accordingly. Subjective/Events-last exam Patient is a 62 yo M admitted after suicide attempt with pesticide as well as sepsis secondary to UTI. He is far more talkative and cooperative during today's exam. Says he is doing well. Alert and oriented to self only. Denies headache, lightheadedness, nausea, and vomiting. Admits to constipation as well as chronic right knee pain. He reports no other symptoms. Review of Systems General: No Chills, No Fatigue, No Malaise HEENT: No Head Aches Pulmonary: No Dyspnea, No Cough Cardiovascular: No: Chest Pain, Lt Headedness Gastrointestinal: Constipation; No: Nausea, Vomiting Musculoskeletal: leg pain (chronic right knee pain) Neurological: No: Weakness, Numbness Focused Exam Sepsis Stage: Ruled Out Reason for ruling out sepsis: Patient no longer meets SIRS criteria for sepsis diagnosis Objective Exam Vital Signs Vital Signs Date Time Temp Pulse Resp B/P (MAP) Pulse Ox O2 Delivery O2 Flow Rate FiO2 06/25/22 11:01 36.7 62 18 144/68 (93) 94 Room Air 06/22/22 16:00 0.00 0.00 06/21/22 13:24 21 Capillary Refill : Less Than 3 Seconds General Appearance: No Apparent Distress, WD/WN, Obese HEENT: PERRL/EOMI Neck: Full Range of Motion, Normal Inspection, Non Tender, Supple; No Carotid Bruit, No JVD Respiratory: Chest Non Tender, Lungs Clear, Normal Breath Sounds, No Accessory Muscle Use, No Respiratory Distress Cardiovascular: Regular Rate, Rhythm, No Edema, No Gallop, No JVD, No Murmur, Normal Peripheral Pulses (Radial and dorsalis pedis) Gastrointestinal: Normal Bowel Sounds, No Organomegaly, No Pulsatile Mass, Non Tender, Soft Back: Normal Inspection Extremity: Normal Capillary Refill, Normal Inspection Neurologic/Psychiatric: Alert; No Oriented x3 (Oriented to self only); No Motor/Sensory Deficits Skin: Normal Color, Warm/Dry Results/Procedures Lab Patient resulted labs reviewed. Meds Meds Home Meds Acetaminophen (Tylenol Extra Strength) 500 Mg Tablet, 1,000 MG PO Q8H PRN for PAIN-MILD (1-4), (Reported) Entered as Reported by: MARS BAZZI on 06/05/22 111 Albuterol Sulfate (Proventil Hfa) 6.7 Gm Hfa.aer.ad, 1 PUFF INH Q4H PRN for SHORTNESS OF BREATH, (Reported) Entered as Reported by: MARS BAZZI on 06/05/22 1131 Amlodipine Besylate (Amlodipine Besylate) 5 Mg Tablet, 5 MG PO DAILY, (Reported) Entered as Reported by: MARS BAZZI on 06/05/22 111 Calcium Carbonate (Antacid) 200 Mg Calcium (500 Mg) Tab.chew, 2 EA PO ACHS, (Reported) Entered as Reported by: MARS BAZZI on 06/05/22 111 Cholecalciferol (Vitamin D3) (Vitamin D3) 1,250 Mcg (74049 Unit) Capsule, 1,250 MCG PO WED, (Reported) Entered as Reported by: MARS BAZZI on 06/05/22 112 Clonidine (Clonidine TTS 1 Patch) 0.1 Mg/24 Hour Patch.tdwk, 0.1 MG TD Mo@0900 Prescribed by: ELHAM ZIMMER on 06/10/22 0651 Cyclobenzaprine HCl (Cyclobenzaprine HCl) 10 Mg Tablet, 10 MG PO 0800,1400,1999, (Reported) Entered as Reported by: MARS BAZZI on 06/05/22 111 Diazepam (Diazepam) 5 Mg Tablet, 5 MG PO 1999, (Reported) Entered as Reported by: MARS BAZZI on 06/05/221125 Gabapentin (Gabapentin) 600 Mg Tablet, 600 MG PO 0800,1400,1999, (Reported) Entered as Reported by: MARS BAZZI on 06/05/22 111 Insulin Glargine-Yfgn (Insulin Glargine-Yfgn) 100 Unit/Ml (3 Ml) Insuln.pen, 10 UNITS SC DAILY, (Reported) Entered as Reported by: MARS BAZZI on 06/05/221115 Levothyroxine Sodium (Levothyroxine Sodium) 50 Mcg Tablet, 50 MCG PO DAILY, (Reported) Entered as Reported by: MARS BAZZI on 06/05/221115 Metoprolol Tartrate (Metoprolol Tartrate) 50 Mg Tablet, 50 MG PO 0800,1700, (Reported) Entered as Reported by: MARS BAZZI on 06/05/221125 Mirtazapine (Mirtazapine) 30 Mg Tablet, 30 MG PO HS, (Reported) Entered as Reported by: MARS BAZZI on 06/05/221115 Morphine Sulfate (Morphine Sulfate ER) 15 Mg Tablet.er, 15 MG PO 0600,1800, (R eported) Entered as Reported by: MARS BAZZI on 06/05/221115 Oxybutynin Chloride (Oxybutynin Chloride) 5 Mg Tablet, 5 MG PO BID, (Reported) Entered as Reported by: MARS BAZZI on 06/05/221125 Oxycodone HCl (Oxycodone HCl) 10 Mg Tablet, 10 MG PO Q6H PRN for PAIN- BREAKTHROUGH, (Reported) Entered as Reported by: MARS BAZZI on 06/05/221115 Pantoprazole Sodium (Pantoprazole Sodium) 40 Mg Tablet.dr, 40 MG PO DAILY, (Reported) Entered as Reported by: MARS BAZZI on 06/05/221115 Polyethylene Glycol 3350 (Atv6094) 17 Gram/Dose Powder, 17 GM PO DAILY, (Reported) Entered as Reported by: MARS BAZZI on 06/05/221115 Sennosides/Docusate Sodium (Stimulant Laxative Plus Tablet) 8.6 Mg-50 Mg Tablet, 1 EA PO BID, (Reported) Entered as Reported by: MARS BAZZI on 06/05/221115 Sertraline HCl (Sertraline HCl) 100 Mg Tablet, 100 MG PO DAILY, (Reported) Entered as Reported by: MARS BAZZI on 06/05/221115 Tolnaftate (Fungoid-D) 1 % Cream..g., 1 APPLIC TP BID, (Reported) Entered as Reported by: MARS BAZZI on 10/14/22 1126 [Melatonin] 12 TAB, 12 MG PO HS, (Reported) Entered as Reported by: MARS GUTIERREZNT on 06/05/22 1116 Hydralazine, meropenem, enoxaparin sodium, oxycodone Assessment/Plan Assessment and Plan Assess & Plan/Chief Complaint Suicide Attempt - Continue monitoring mental state, organ function, consult with behavioral health for continued psychiatric needs Sepsis secondary to UTI - Continue antibiotic treatment with meropenem DVT prophylaxis - enoxaparin sodium Prostate cancer - continue chemotherapy Psychiatric disorders - lorazepam, ziprazidone, paroxetine Hypertension - continue medical management COPD - continue medical management and monitor for respiratory symptoms Insulin dependent diabetes mellitus - continue medical management, sliding scale insulin for control of hyperglycemia Clinical Quality Measures DVT/VTE Risk/Contraindication: VTE Addressed: Yes VTE Present on Admission: No ELHAM ZIMMER DO 06/26/22 0511: Assessment/Plan Assessment and Plan Assess & Plan/Chief Complaint Awaiting group home placement for hospice Supervisory-Addendum Brief Verification & Attestation Participated in pt care: history, MDM, physical Personally performed: exam, history, MDM, supervision of care Care discussed with: Medical Student Procedures: n/a Results interpretation: Verified all documentation Verification and Attestation of Medical Student E/M Service A medical student performed and documented this service in my presence. I reviewed and verified all information documented by the medical student and made modifications to such information, when appropriate. I personally performed the physical exam and medical decision making. Elham Zimmer, Jun 26, 2022,05:10 KOJO MARSHALL Jun 25, 2022 13:33 ELHAM ZIMMER DO Jun 26, 2022 05:11
[2022-06-25 15:39] VITALS: BP 126/74
[2022-06-25] MEDS: TRIM/SULFAMETH 160/800 (SEPTRA DS) TAB PO SCH (17:08)
[2022-06-25 19:22] VITALS: BP 173/90
[2022-06-25] MEDS: LORazepam INJ 2 MG/ML (ATIVAN) VIAL IVP PRN (20:03)
[2022-06-26] VITALS (7 sets, daily range): BP systolic 136–154; BP diastolic 73–84
[2022-06-26] MEDS: hydrALAZINE (APESOLINE) 20 MG/ML VIAL IV SCH ×6 (00:40→20:52)
[2022-06-26] MEDS: LORazepam INJ 2 MG/ML (ATIVAN) VIAL IVP PRN (00:40)
[2022-06-26] MEDS: MEROPENEM 1,000 MG in NS (IVPB) 100 ML IV SCH (05:11)
[2022-06-26] MEDS: inSUlin ASPART (NovoLOG) 1 UNIT/0.01 ML (CHARGE PER UNIT) SC SCH ×4 (05:33→20:53)
[2022-06-26] MEDS: LEVOTHYROXINE 50 MCG (LEVOTHROID) TAB PO SCH ×2 (05:33→07:49)
[2022-06-26] MEDS: RT-ALBUTEROL/IPRATROPIUM 3 ML (DUONEB) VIAL INH SCH ×2 (06:41→19:36)
[2022-06-26] MEDS: ZIPRASIDONE 20 MG (GEODON) CAP PO SCH ×2 (07:48→17:17)
[2022-06-26] MEDS: TRIM/SULFAMETH 160/800 (SEPTRA DS) TAB PO SCH ×2 (07:48→17:22)
[2022-06-26] MEDS: DIVALPROX SPRINKLE 125 MG (DEPAKOTE) CAP PO SCH ×3 (07:48→17:22)
[2022-06-26] MEDS: DOCUSATE SODIUM 100 MG (COLACE) CAP PO SCH ×2 (07:48→17:17)
[2022-06-26] MEDS: SENNA W/DOCUSATE (SENOKOT S) TABLET PO SCH ×2 (07:49→17:17)
[2022-06-26] MEDS: amLODIPine 5 MG (NORVASC) TAB PO SCH ×2 (07:49→17:17)
[2022-06-26] MEDS: meTOprolol TARTRATE 50 MG (LOPRESSOR) TAB PO SCH ×2 (07:50→17:18)
[2022-06-26] MEDS: PARoxetine 20 MG (PAXIL) TAB PO SCH (07:50)
[2022-06-26] MEDS: PANTOPRAZOLE 40 MG (PROTONIX) TAB PO SCH (07:50)
[2022-06-26] MEDS: polyethylene glycoL POWDER 17 GM (MIRALAX) PACK PO SCH (07:52)
[2022-06-26] MEDS: GABAPENTIN 300 MG (NEURONTIN) CAP PO SCH ×4 (07:53→20:57)
--- NOTE | 2022-06-26 11:27 | Progress Note - Hospitalist ---
Subjective HPI/CC On Admission Date Seen by Provider: Jun 26, 2022 Time Seen by Provider: 11:15 CC: Altered mental status with sepsis HPI: This is a 62 yr old male known to me from recent [facility] admission due to altered mental status. He was admitted for suicidal attempt with pesticide. He is a hospice candidate and that was decided with family and patient. He required Precedex due to altered mental status and history of meth use and brain injury from that. At this current time he doesn't speak to me. We will manage him accordingly. Subjective/Events-last exam Pt hasn't had any major changes No psych issues No aggression Remains stable but needs hospice at discharge Objective Exam Vital Signs Vital Signs Date Time Temp Pulse Resp B/P (MAP) Pulse Ox O2 Delivery O2 Flow Rate FiO2 06/26/22 19:50 36.7 68 16 138/76 (96) 94 Room Air 06/22/22 16:00 0.00 0.00 06/21/22 13:24 21 Capillary Refill : Less Than 3 Seconds General Appearance: No Apparent Distress, WD/WN, Chronically ill, Obese Respiratory: Lungs Clear Cardiovascular: Regular Rate, Rhythm Neurologic/Psychiatric: Alert, Oriented x3, Depressed Affect Results/Procedures Lab Patient resulted labs reviewed. Assessment/Plan Assessment and Plan Assess & Plan/Chief Complaint Awaiting [facility] placement for hospice Critical Care Critically Ill Patient Clinical Quality Measures DVT/VTE Risk/Contraindication: VTE Addressed: Yes VTE Present on Admission: No ROS ZIMMER DO Jun 26, 2022 11:27
[2022-06-26] MEDS: ENOXAPARIN 40 MG/0.4 ML (LOVENOX) SYR SC SCH (11:52)
[2022-06-26] MEDS: LORazepam 1 MG (ATIVAN) TAB PO PRN ×3 (11:52→20:58)
[2022-06-26] MEDS: MELATONIN 3 MG TABLET PO SCH (20:57)
[2022-06-26] MEDS: diphenhydrAMINE 25 MG TAB (BENADRYL) PO PRN (20:57)
[2022-06-27] MEDS: hydrALAZINE (APESOLINE) 20 MG/ML VIAL IV SCH ×6 (00:20→19:34)
[2022-06-27 03:21] VITALS: BP 146/72
[2022-06-27] MEDS: inSUlin ASPART (NovoLOG) 1 UNIT/0.01 ML (CHARGE PER UNIT) SC SCH ×4 (05:32→20:15)
[2022-06-27 07:09] VITALS: BP 162/89
[2022-06-27] MEDS: RT-ALBUTEROL/IPRATROPIUM 3 ML (DUONEB) VIAL INH SCH ×2 (08:18→20:14)
[2022-06-27] MEDS: polyethylene glycoL POWDER 17 GM (MIRALAX) PACK PO SCH (08:41)
[2022-06-27] MEDS: TRIM/SULFAMETH 160/800 (SEPTRA DS) TAB PO SCH ×2 (08:44→17:03)
[2022-06-27] MEDS: meTOprolol TARTRATE 50 MG (LOPRESSOR) TAB PO SCH ×2 (08:44→15:38)
[2022-06-27] MEDS: DOCUSATE SODIUM 100 MG (COLACE) CAP PO SCH ×2 (08:44→20:14)
[2022-06-27] MEDS: PANTOPRAZOLE 40 MG (PROTONIX) TAB PO SCH (08:44)
[2022-06-27] MEDS: SENNA W/DOCUSATE (SENOKOT S) TABLET PO SCH ×2 (08:44→20:14)
[2022-06-27] MEDS: amLODIPine 5 MG (NORVASC) TAB PO SCH ×2 (08:44→20:14)
[2022-06-27] MEDS: ZIPRASIDONE 20 MG (GEODON) CAP PO SCH ×2 (08:45→17:02)
[2022-06-27] MEDS: PARoxetine 20 MG (PAXIL) TAB PO SCH (08:45)
[2022-06-27] MEDS: DIVALPROX SPRINKLE 125 MG (DEPAKOTE) CAP PO SCH ×3 (08:45→20:14)
[2022-06-27] MEDS: LORazepam 1 MG (ATIVAN) TAB PO PRN (08:45)
[2022-06-27] MEDS: GABAPENTIN 300 MG (NEURONTIN) CAP PO SCH ×4 (08:46→20:15)
--- NOTE | 2022-06-27 10:54 | Progress Note - Hospitalist ---
Subjective HPI/CC On Admission Date Seen by Provider: Jun 27, 2022 Time Seen by Provider: 09:30 CC: Altered mental status with sepsis HPI: This is a 62 yr old male known to me from recent [facility] admission due to altered mental status. He was admitted for suicidal attempt with pesticide. He is a hospice candidate and that was decided with family and patient. He required Precedex due to altered mental status and history of meth use and brain injury from that. At this current time he doesn't speak to me. We will manage him accordingly. Subjective/Events-last exam Patient pleasant and alert during interview voicing no complaints. He is agreeable to senior care placement and reports that he is feeling better. No significant agitated behavior normal affect cooperative during the interview. Objective Exam Vital Signs Vital Signs Date Time Temp Pulse Resp B/P (MAP) Pulse Ox O2 Delivery O2 Flow Rate FiO2 06/27/22 08:18 94 Room Air 06/27/22 07:09 36.2 65 18 162/89 (113) 06/26/22 20:50 0.00 06/21/22 13:24 21 Capillary Refill : Less Than 3 Seconds General Appearance: No Apparent Distress, Chronically ill, Obese Respiratory: Chest Non Tender, Lungs Clear, Normal Breath Sounds, No Accessory Muscle Use, No Respiratory Distress Cardiovascular: Regular Rate, Rhythm, No Edema, No Gallop, No JVD, No Murmur, Normal Peripheral Pulses Gastrointestinal: Normal Bowel Sounds, No Organomegaly, No Pulsatile Mass, Non Tender, Soft Results/Procedures Lab Patient resulted labs reviewed. Assessment/Plan Assessment and Plan Assess & Plan/Chief Complaint Suicide Attempt - Patient medically stable for transfer to senior care on Wednesday reportedly on hospice. Patient is agreeable to this. Sepsis secondary to UTI Resolved DVT prophylaxis - enoxaparin sodium Prostate cancer - continue chemotherapy Psychiatric disorders - lorazepam, ziprazidone, paroxetine Hypertension - continue medical management COPD - continue medical management and monitor for respiratory symptoms Insulin dependent diabetes mellitus - continue medical management, sliding scale insulin for control of hyperglycemia Critical Care Critically Ill Patient Clinical Quality Measures DVT/VTE Risk/Contraindication: VTE Addressed: Yes VTE Present on Admission: No SHREYAS OWEN MD Jun 27, 2022 10:54
[2022-06-27 11:45] VITALS: BP 145/80
[2022-06-27] MEDS: ENOXAPARIN 40 MG/0.4 ML (LOVENOX) SYR SC SCH (12:30)
[2022-06-27 15:37] VITALS: BP 141/65
[2022-06-27] MEDS: ACETAMINOPHEN 325 MG TABLET PO PRN (17:03)
[2022-06-27] MEDS: LORazepam INJ 2 MG/ML (ATIVAN) VIAL IVP PRN ×2 (17:24→21:20)
[2022-06-27 19:26] VITALS: BP 120/57
[2022-06-27] MEDS: MELATONIN 3 MG TABLET PO SCH (20:14)
[2022-06-28] VITALS (7 sets, daily range): BP systolic 117–162; BP diastolic 70–85
[2022-06-28] MEDS: hydrALAZINE (APESOLINE) 20 MG/ML VIAL IV SCH ×7 (00:05→23:53)
[2022-06-28] MEDS: LEVOTHYROXINE 50 MCG (LEVOTHROID) TAB PO SCH (05:05)
[2022-06-28] MEDS: inSUlin ASPART (NovoLOG) 1 UNIT/0.01 ML (CHARGE PER UNIT) SC SCH ×4 (05:37→20:10)
[2022-06-28] MEDS: RT-ALBUTEROL/IPRATROPIUM 3 ML (DUONEB) VIAL INH SCH (07:25)
[2022-06-28] MEDS: TRIM/SULFAMETH 160/800 (SEPTRA DS) TAB PO SCH ×2 (08:12→18:19)
[2022-06-28] MEDS: amLODIPine 5 MG (NORVASC) TAB PO SCH ×2 (08:12→20:10)
[2022-06-28] MEDS: ZIPRASIDONE 20 MG (GEODON) CAP PO SCH ×2 (08:12→18:19)
[2022-06-28] MEDS: PANTOPRAZOLE 40 MG (PROTONIX) TAB PO SCH (08:12)
[2022-06-28] MEDS: meTOprolol TARTRATE 50 MG (LOPRESSOR) TAB PO SCH ×2 (08:12→17:53)
[2022-06-28] MEDS: PARoxetine 20 MG (PAXIL) TAB PO SCH (08:12)
[2022-06-28] MEDS: SENNA W/DOCUSATE (SENOKOT S) TABLET PO SCH ×2 (08:12→20:10)
[2022-06-28] MEDS: DOCUSATE SODIUM 100 MG (COLACE) CAP PO SCH ×2 (08:12→20:10)
[2022-06-28] MEDS: DIVALPROX SPRINKLE 125 MG (DEPAKOTE) CAP PO SCH ×3 (08:12→20:10)
[2022-06-28] MEDS: GABAPENTIN 300 MG (NEURONTIN) CAP PO SCH ×4 (08:16→20:19)
[2022-06-28] MEDS: polyethylene glycoL POWDER 17 GM (MIRALAX) PACK PO SCH (08:17)
[2022-06-28] MEDS: HYDROmorphone 2 MG/ML VIAL (DILAUDID) IVP PRN ×2 (10:42→15:56)
--- NOTE | 2022-06-28 11:33 | Progress Note - Hospitalist ---
Subjective HPI/CC On Admission Date Seen by Provider: Jun 28, 2022 Time Seen by Provider: 11:00 CC: Altered mental status with sepsis HPI: This is a 62 yr old male known to me from recent [facility] admission due to altered mental status. He was admitted for suicidal attempt with pesticide. He is a hospice candidate and that was decided with family and patient. He required Precedex due to altered mental status and history of meth use and brain injury from that. At this current time he doesn't speak to me. We will manage him accordingly. Subjective/Events-last exam Patient complains of left leg pain from the buttock down to the foot not a new symptom apparently for him. He had been given oxycodone 30 minutes ago a little sedated but still reporting pain. No other care issues no significant agit ation. Objective Exam Vital Signs Vital Signs Date Time Temp Pulse Resp B/P (MAP) Pulse Ox O2 Delivery O2 Flow Rate FiO2 06/28/22 08:00 Room Air 06/28/22 07:40 36.1 65 20 162/85 (110) 97 06/26/22 20:50 0.00 Capillary Refill : Less Than 3 Seconds General Appearance: Chronically ill, Mild Distress Respiratory: Chest Non Tender, Lungs Clear, Normal Breath Sounds, No Accessory Muscle Use, No Respiratory Distress Cardiovascular: Regular Rate, Rhythm, No Edema, No Gallop, No JVD, No Murmur, Normal Peripheral Pulses Extremity: Other (No pain no erythema no ulceration chronic venous insufficiency change bilaterally while left leg feels pain palpating the leg does not aggravate it.) Results/Procedures Lab Patient resulted labs reviewed. Assessment/Plan Assessment and Plan Assess & Plan/Chief Complaint Suicide Attempt - Patient medically stable for transfer to [facility] on Wednesday reportedly on hospice. Patient is agreeable to this. Sepsis secondary to UTI Resolved DVT prophylaxis - enoxaparin sodium Prostate cancer - continue chemotherapy Psychiatric disorders - lorazepam, ziprazidone, paroxetine Hypertension - continue medical management COPD - continue medical management and monitor for respiratory symptoms Insulin dependent diabetes mellitus - continue medical management, sliding scale insulin for control of hyperglycemia. Left lower extremity pain compatible with radiculopathy continue narcotic therapy as needed conservative medical management.Will Continue gabapentin. Critical Care Critically Ill Patient Clinical Quality Measures DVT/VTE Risk/Contraindication: VTE Addressed: Yes VTE Present on Admission: No SHREYAS OWEN MD Jun 28, 2022 11:33
[2022-06-28] MEDS: ENOXAPARIN 40 MG/0.4 ML (LOVENOX) SYR SC SCH (12:29)
[2022-06-28] MEDS: LORazepam INJ 2 MG/ML (ATIVAN) VIAL IVP PRN ×2 (15:19→20:10)
[2022-06-28] MEDS: HALOPERIDOL 5 MG/ML (HALDOL) VIAL IM PRN (15:48)
[2022-06-28] MEDS: MELATONIN 3 MG TABLET PO SCH (20:10)
[2022-06-28] MEDS: LORazepam 1 MG (ATIVAN) TAB PO PRN (23:52)
[2022-06-29] VITALS (7 sets, daily range): BP systolic 118–177; BP diastolic 68–88
[2022-06-29] MEDS: HALOPERIDOL 5 MG/ML (HALDOL) VIAL IM PRN (00:28)
[2022-06-29] MEDS: HYDROmorphone 2 MG/ML VIAL (DILAUDID) IVP PRN ×2 (00:57→15:23)
[2022-06-29] MEDS: hydrALAZINE (APESOLINE) 20 MG/ML VIAL IV SCH ×5 (03:44→21:19)
[2022-06-29] MEDS: LORazepam INJ 2 MG/ML (ATIVAN) VIAL IVP PRN ×3 (03:57→21:19)
[2022-06-29] MEDS: inSUlin ASPART (NovoLOG) 1 UNIT/0.01 ML (CHARGE PER UNIT) SC SCH ×4 (06:35→20:43)
[2022-06-29] MEDS: LEVOTHYROXINE 50 MCG (LEVOTHROID) TAB PO SCH (06:38)
[2022-06-29] MEDS: ZIPRASIDONE 20 MG (GEODON) CAP PO SCH ×2 (07:58→18:19)
[2022-06-29] MEDS: DIVALPROX SPRINKLE 125 MG (DEPAKOTE) CAP PO SCH ×3 (08:01→21:27)
[2022-06-29] MEDS: SENNA W/DOCUSATE (SENOKOT S) TABLET PO SCH ×2 (08:02→21:18)
[2022-06-29] MEDS: DOCUSATE SODIUM 100 MG (COLACE) CAP PO SCH ×2 (08:02→21:18)
[2022-06-29] MEDS: meTOprolol TARTRATE 50 MG (LOPRESSOR) TAB PO SCH ×2 (08:02→17:15)
[2022-06-29] MEDS: TRIM/SULFAMETH 160/800 (SEPTRA DS) TAB PO SCH ×2 (08:02→18:19)
[2022-06-29] MEDS: amLODIPine 5 MG (NORVASC) TAB PO SCH ×2 (08:02→21:18)
[2022-06-29] MEDS: PANTOPRAZOLE 40 MG (PROTONIX) TAB PO SCH (08:02)
[2022-06-29] MEDS: PARoxetine 20 MG (PAXIL) TAB PO SCH (08:02)
[2022-06-29] MEDS: GABAPENTIN 300 MG (NEURONTIN) CAP PO SCH ×4 (08:05→21:18)
[2022-06-29] MEDS: polyethylene glycoL POWDER 17 GM (MIRALAX) PACK PO SCH (08:15)
[2022-06-29] MEDS: ENOXAPARIN 40 MG/0.4 ML (LOVENOX) SYR SC SCH (12:32)
--- NOTE | 2022-06-29 13:28 | Progress Note ---
Subjective Subjective/Events-last exam Pt sleeping at time of my exam, opened eyes briefly but did not wake up to answer questions. He was agitated this morning and calling for help but unable to be redirected and dumping water and grabbing people and received Haldol. Objective Exam Last Set of Vital Signs Vital Signs Date Time Temp Pulse Resp B/P (MAP) Pulse Ox O2 Delivery O2 Flow Rate FiO2 06/29/22 11:14 36.9 82 18 162/74 (103) 95 Room Air 06/28/22 17:48 21 06/26/22 20:50 0.00 Capillary Refill : Less Than 3 Seconds I&O Intake and Output 06/29/22 00:00 Intake Total 990 ml Output Total 2475 ml Balance -1485 ml Intake Oral 990 ml Output Urine Total 2475 ml General: Other (sleeping, did not awaken due to recent agitation) Lungs: Clear to Auscultation, Normal Air Movement Heart: Regular Rate Extremities: No Edema Skin: Other (chronic venous stasis changes to both lower legs) Results/Procedures Lab Laboratory Tests 06/28/22 15:36: Glucometer 119H 06/28/22 20:02: Glucometer 109 06/29/22 06:32: Glucometer 97 06/29/22 10:14: Glucometer 131H Microbiology 06/21/22 MRSA Screen - Final, Complete 06/20/22 Urine Culture - Final, Complete Pseudomonas putida Stenotrophomonas Maltophilia Assessment/Plan Assessment/Plan (1) Ingestion of toxin Status: Acute Assessment & Plan: Small amount of pesticide ingestion prior to admit, no specific complications noted. Unable to go to inpatient Psych from ER due to other comorbidities. Qualifiers: Qualified Codes: T65.92XA - Toxic effect of unspecified substance, intentional self-harm, initial encounter (2) UTI (urinary tract infection) due to urinary indwelling catheter Status: Acute Assessment & Plan: Treated with Bactrim, course will complete on 06/30. (3) Prostate cancer metastatic to multiple sites Status: Chronic Assessment & Plan: Bony mets, on chronic opiate therapy. Reportedly was plan to discuss hospice prior to admit. Social work consulted and working on placement for d/c. (4) Behavior disturbance Status: Chronic Assessment & Plan: Chronic issue, is on home diazepam, ziprasodone, paroxetine and depakote as well as prn Haldol. Working on minimizing prn med use and working on placement. (5) COPD (chronic obstructive pulmonary disease) Status: Chronic (6) Insulin dependent diabetes mellitus Status: Chronic (7) History of methamphetamine abuse Status: Chronic (8) AMI (acute kidney injury) Status: Resolved (9) DVT prophylaxis Status: Acute Assessment & Plan: Enoxaparin Clinical Quality Measures DVT/VTE Risk/Contraindication: VTE Addressed: Yes VTE Present on Admission: No CHRIS DOHERTY MD Jun 29, 2022 13:28
[2022-06-29] MEDS: LORazepam 1 MG (ATIVAN) TAB PO PRN (13:48)
[2022-06-29] MEDS: diphenhydrAMINE 50 MG/ML INJ (BENADRYL) IVP PRN (14:30)
[2022-06-29] MEDS: MELATONIN 3 MG TABLET PO SCH (21:19)
[2022-06-30] MEDS: HALOPERIDOL 5 MG/ML (HALDOL) VIAL IM PRN ×2 (00:09→21:09)
[2022-06-30] MEDS: hydrALAZINE (APESOLINE) 20 MG/ML VIAL IV SCH ×2 (00:49→03:44)
[2022-06-30 03:35] VITALS: BP 139/65
[2022-06-30] MEDS: LORazepam INJ 2 MG/ML (ATIVAN) VIAL IVP PRN (03:44)
[2022-06-30] MEDS: inSUlin ASPART (NovoLOG) 1 UNIT/0.01 ML (CHARGE PER UNIT) SC SCH ×4 (05:29→20:48)
[2022-06-30] MEDS: LEVOTHYROXINE 50 MCG (LEVOTHROID) TAB PO SCH (05:29)
[2022-06-30 07:25] VITALS: BP 144/72
[2022-06-30] MEDS: PANTOPRAZOLE 40 MG (PROTONIX) TAB PO SCH (08:53)
[2022-06-30] MEDS: TRIM/SULFAMETH 160/800 (SEPTRA DS) TAB PO SCH (08:53)
[2022-06-30] MEDS: meTOprolol TARTRATE 50 MG (LOPRESSOR) TAB PO SCH ×2 (08:53→18:05)
[2022-06-30] MEDS: PARoxetine 20 MG (PAXIL) TAB PO SCH (08:53)
[2022-06-30] MEDS: DIVALPROX SPRINKLE 125 MG (DEPAKOTE) CAP PO SCH ×3 (08:53→19:45)
[2022-06-30] MEDS: ZIPRASIDONE 20 MG (GEODON) CAP PO SCH ×2 (08:53→18:05)
[2022-06-30] MEDS: LORazepam 1 MG (ATIVAN) TAB PO PRN ×2 (08:53→19:45)
[2022-06-30] MEDS: amLODIPine 5 MG (NORVASC) TAB PO SCH ×2 (08:53→19:45)
[2022-06-30] MEDS: polyethylene glycoL POWDER 17 GM (MIRALAX) PACK PO SCH (09:33)
[2022-06-30] MEDS: DOCUSATE SODIUM 100 MG (COLACE) CAP PO SCH ×2 (09:33→19:44)
[2022-06-30] MEDS: GABAPENTIN 300 MG (NEURONTIN) CAP PO SCH ×4 (09:33→20:54)
[2022-06-30] MEDS: SENNA W/DOCUSATE (SENOKOT S) TABLET PO SCH ×2 (09:33→19:45)
[2022-06-30 11:38] VITALS: BP 117/72
--- NOTE | 2022-06-30 11:53 | Progress Note ---
Subjective Subjective/Events-last exam Pt is awake and alert this morning, requesting a shower. He is able to state his name and location but says he does not know the date. Objective Exam Last Set of Vital Signs Vital Signs Date Time Temp Pulse Resp B/P (MAP) Pulse Ox O2 Delivery O2 Flow Rate FiO2 06/30/22 11:38 36.7 61 18 117/72 (87) 93 Room Air 06/29/22 23:43 0.00 0.00 06/28/22 17:48 21 Capillary Refill : Less Than 3 Seconds I&O Intake and Output 06/30/22 00:00 Intake Total 595 ml Output Total 1725 ml Balance -1130 ml Intake Oral 595 ml Output Urine Total 1725 ml General: Alert, No Acute Distress Lungs: Clear to Auscultation, Normal Air Movement Heart: Regular Rate, No Murmurs Abdomen: Normal Bowel Sounds, Soft Psych/Mental Status: Other (flat affect) Results/Procedures Lab Laboratory Tests 06/29/22 16:48: Glucometer 76 06/29/22 20:35: Glucometer 155H 06/30/22 05:25: Glucometer 79 06/30/22 06:26: Glucometer 121H 06/30/22 11:08: Glucometer 101 Microbiology 06/21/22 MRSA Screen - Final, Complete 06/20/22 Urine Culture - Final, Complete Pseudomonas putida Stenotrophomonas Maltophilia Assessment/Plan Assessment/Plan (1) Ingestion of toxin Status: Acute Assessment & Plan: Small amount of pesticide ingestion prior to admit, no specific complications noted. Unable to go to inpatient Psych from ER due to other comorbidities. Qualifiers: Qualified Codes: T65.92XA - Toxic effect of unspecified substance, intentional self-harm, initial encounter (2) UTI (urinary tract infection) due to urinary indwelling catheter Status: Acute Assessment & Plan: Treated with Bactrim, course will complete on 06/30. (3) Prostate cancer metastatic to multiple sites Status: Chronic Assessment & Plan: Bony mets, on chronic opiate therapy. Reportedly was plan to discuss hospice prior to admit. Social work consulted and working on placement for d/c. 06/30 discussed goals with patient today, and he does not clearly recall hospice discussion, when asked if he knows what hospice is he states "where they kill you", and on clarification about goals of care with hospice and discussing his metastatic prostate cancer, he says he would want to continue treatment for his cancer. (4) Behavior disturbance Status: Chronic Assessment & Plan: Chronic issue, is on home diazepam, ziprasodone, paroxetine and depakote as well as prn Haldol and ativan. Working on minimizing prn med use and working on placement. Holding IV meds and increased ziprasodone. Will monitor daily EKG due to QT prolonging meds, stopped ondansetron. (5) COPD (chronic obstructive pulmonary disease) Status: Chronic (6) Insulin dependent diabetes mellitus Status: Chronic (7) History of methamphetamine abuse Status: Chronic (8) AMI (acute kidney injury) Status: Resolved (9) DVT prophylaxis Status: Acute Assessment & Plan: Enoxaparin Clinical Quality Measures DVT/VTE Risk/Contraindication: VTE Addressed: Yes VTE Present on Admission: No CHRIS DOHERTY MD Jun 30, 2022 11:53
[2022-06-30] MEDS: ENOXAPARIN 40 MG/0.4 ML (LOVENOX) SYR SC SCH (14:04)
[2022-06-30 16:28] VITALS: BP 127/73
[2022-06-30] MEDS: MELATONIN 3 MG TABLET PO SCH (19:45)
[2022-06-30 20:34] VITALS: BP 138/70
[2022-07-01 00:45] VITALS: BP 154/73
[2022-07-01] MEDS: HALOPERIDOL 5 MG/ML (HALDOL) VIAL IM PRN (02:59)
[2022-07-01] MEDS: LORazepam 1 MG (ATIVAN) TAB PO PRN ×2 (03:37→16:36)
[2022-07-01] MEDS: LEVOTHYROXINE 50 MCG (LEVOTHROID) TAB PO SCH (03:37)
[2022-07-01] MEDS: inSUlin ASPART (NovoLOG) 1 UNIT/0.01 ML (CHARGE PER UNIT) SC SCH ×4 (05:45→20:43)
[2022-07-01 08:00] VITALS: BP 152/70
[2022-07-01] MEDS: DIVALPROX SPRINKLE 125 MG (DEPAKOTE) CAP PO SCH ×3 (09:23→23:02)
[2022-07-01] MEDS: DOCUSATE SODIUM 100 MG (COLACE) CAP PO SCH ×2 (09:23→23:03)
[2022-07-01] MEDS: ZIPRASIDONE 20 MG (GEODON) CAP PO SCH ×3 (09:23→17:15)
[2022-07-01] MEDS: SENNA W/DOCUSATE (SENOKOT S) TABLET PO SCH ×2 (09:23→23:03)
[2022-07-01] MEDS: amLODIPine 5 MG (NORVASC) TAB PO SCH ×2 (09:23→23:03)
[2022-07-01] MEDS: PARoxetine 20 MG (PAXIL) TAB PO SCH (09:24)
[2022-07-01] MEDS: PANTOPRAZOLE 40 MG (PROTONIX) TAB PO SCH (09:24)
[2022-07-01] MEDS: meTOprolol TARTRATE 50 MG (LOPRESSOR) TAB PO SCH ×2 (09:24→16:36)
[2022-07-01] MEDS: polyethylene glycoL POWDER 17 GM (MIRALAX) PACK PO SCH (09:25)
[2022-07-01] MEDS: GABAPENTIN 300 MG (NEURONTIN) CAP PO SCH ×4 (09:26→23:04)
[2022-07-01] MEDS: ENOXAPARIN 40 MG/0.4 ML (LOVENOX) SYR SC SCH (13:54)
--- NOTE | 2022-07-01 15:13 | Progress Note ---
Subjective Subjective/Events-last exam Pt sleeping, awakens to voice. Denies concerns. Answers questions briefly. Objective Exam Last Set of Vital Signs Vital Signs Date Time Temp Pulse Resp B/P (MAP) Pulse Ox O2 Delivery O2 Flow Rate FiO2 07/01/22 08:00 36.1 60 16 152/70 (97) 94 Room Air 06/29/22 23:43 0.00 0.00 06/28/22 17:48 21 Capillary Refill : Less Than 3 Seconds I&O Intake and Output 07/01/22 00:00 Intake Total 1320 ml Output Total 1775 ml Balance -455 ml Intake Oral 1320 ml Output Urine Total 1775 ml General: Alert, No Acute Distress Lungs: Clear to Auscultation, Normal Air Movement Heart: Regular Rate Abdomen: Normal Bowel Sounds, Soft Extremities: Other (marked hemosiderin staining of both lower legs) Neuro: Other (oriented to self, location, but not date) Psych/Mental Status: Other (flat affect) Results/Procedures Lab Laboratory Tests 06/30/22 17:01: Glucometer 127H 06/30/22 20:27: Glucometer 132H 07/01/22 05:41: Glucometer 105 07/01/22 10:56: Glucometer 139H Microbiology 06/21/22 MRSA Screen - Final, Complete 06/20/22 Urine Culture - Final, Complete Pseudomonas putida Stenotrophomonas Maltophilia Assessment/Plan Assessment/Plan (1) Ingestion of toxin Status: Acute Assessment & Plan: Small amount of pesticide ingestion prior to admit, no specific complications noted. Unable to go to inpatient Psych from ER due to other comorbidities. Qualifiers: Qualified Codes: T65.92XA - Toxic effect of unspecified substance, intentional self-harm, initial encounter (2) UTI (urinary tract infection) due to urinary indwelling catheter Status: Acute Assessment & Plan: Treated with Bactrim, course completed on 06/30. (3) Prostate cancer metastatic to multiple sites Status: Chronic Assessment & Plan: Bony mets, on chronic opiate therapy. Reportedly was plan to discuss hospice prior to admit. Social work consulted and working on placement for d/c. 06/30 discussed goals with patient today, and he does not clearly recall hospice discussion, when asked if he knows what hospice is he states "where they kill you", and on clarification about goals of care with hospice and discussing his metastatic prostate cancer, he says he would want to continue treatment for his cancer. (4) Behavior disturbance Status: Chronic Assessment & Plan: Chronic issue, is on home diazepam, ziprasodone, paroxetine and depakote as well as prn Haldol and ativan. Working on minimizing prn med use and working on placement. Holding IV meds and increased ziprasodone. Will monitor daily EKG due to QT prolonging meds, stopped ondansetron. (5) COPD (chronic obstructive pulmonary disease) Status: Chronic (6) Insulin dependent diabetes mellitus Status: Chronic (7) History of methamphetamine abuse Status: Chronic (8) AMI (acute kidney injury) Status: Resolved (9) Unable to care for self Status: Chronic Assessment & Plan: Social work working on placement, difficult due to history of behavioral disturbances, continuing to reach out to multiple locations across the state. (10) DVT prophylaxis Status: Acute Assessment & Plan: Enoxaparin Clinical Quality Measures DVT/VTE Risk/Contraindication: VTE Addressed: Yes VTE Present on Admission: No CHRIS DOHERTY MD Jul 01, 2022 15:13
[2022-07-01 15:36] VITALS: BP 176/79
[2022-07-01] MEDS: diphenhydrAMINE 25 MG TAB (BENADRYL) PO PRN (16:36)
[2022-07-01] MEDS: cloNIDine 0.1 MG (CATAPRES) TAB PO PRN (16:36)
[2022-07-01 17:13] VITALS: BP 144/67
[2022-07-01] MEDS: RT-ALBUTEROL/IPRATROPIUM 3 ML (DUONEB) VIAL INH PRN (17:29)
[2022-07-01] MEDS: MELATONIN 3 MG TABLET PO SCH (23:02)
[2022-07-01 23:26] VITALS: BP 123/75
[2022-07-02] MEDS: diphenhydrAMINE 25 MG TAB (BENADRYL) PO PRN ×2 (02:11→19:13)
[2022-07-02] MEDS: LORazepam 1 MG (ATIVAN) TAB PO PRN ×4 (02:11→19:13)
[2022-07-02] MEDS: inSUlin ASPART (NovoLOG) 1 UNIT/0.01 ML (CHARGE PER UNIT) SC SCH ×4 (05:03→21:31)
[2022-07-02] MEDS: LEVOTHYROXINE 50 MCG (LEVOTHROID) TAB PO SCH (05:08)
[2022-07-02 07:40] VITALS: BP 157/97
[2022-07-02] MEDS: amLODIPine 5 MG (NORVASC) TAB PO SCH ×2 (09:16→19:13)
[2022-07-02] MEDS: PANTOPRAZOLE 40 MG (PROTONIX) TAB PO SCH (09:16)
[2022-07-02] MEDS: SENNA W/DOCUSATE (SENOKOT S) TABLET PO SCH ×2 (09:16→19:13)
[2022-07-02] MEDS: meTOprolol TARTRATE 50 MG (LOPRESSOR) TAB PO SCH ×2 (09:16→16:24)
[2022-07-02] MEDS: DOCUSATE SODIUM 100 MG (COLACE) CAP PO SCH ×2 (09:16→19:13)
[2022-07-02] MEDS: ZIPRASIDONE 20 MG (GEODON) CAP PO SCH ×2 (09:16→16:24)
[2022-07-02] MEDS: DIVALPROX SPRINKLE 125 MG (DEPAKOTE) CAP PO SCH ×3 (09:16→16:27)
[2022-07-02] MEDS: PARoxetine 20 MG (PAXIL) TAB PO SCH (09:16)
[2022-07-02] MEDS: GABAPENTIN 300 MG (NEURONTIN) CAP PO SCH ×4 (09:19→19:15)
[2022-07-02] MEDS: polyethylene glycoL POWDER 17 GM (MIRALAX) PACK PO SCH (09:20)
--- NOTE | 2022-07-02 11:07 | Progress Note ---
Subjective Subjective/Events-last exam Afebrile. Pt denies concerns, states he wants to go home, only wants to go to [place]. Objective Exam Last Set of Vital Signs Vital Signs Date Time Temp Pulse Resp B/P (MAP) Pulse Ox O2 Delivery O2 Flow Rate FiO2 07/02/22 08:00 Room Air 07/02/22 07:40 36.9 61 19 157/97 (117) 95 06/29/22 23:43 0.00 0.00 06/28/22 17:48 21 Capillary Refill : Less Than 3 Seconds I&O Intake and Output 07/02/22 00:00 Intake Total 0 ml Output Total 1200 ml Balance -1200 ml Intake Oral 0 ml Output Urine Total 1200 ml # Voids 3 General: Alert, No Acute Distress Lungs: Clear to Auscultation, Normal Air Movement Heart: Regular Rate, No Murmurs Neuro: Normal Speech Results/Procedures Lab Laboratory Tests 07/01/22 15:40: Glucometer 169H 07/01/22 20:26: Glucometer 140H 07/02/22 05:03: Glucometer 109 Microbiology 06/21/22 MRSA Screen - Final, Complete 06/20/22 Urine Culture - Final, Complete Pseudomonas putida Stenotrophomonas Maltophilia Assessment/Plan Assessment/Plan (1) Ingestion of toxin Status: Acute Assessment & Plan: Small amount of pesticide ingestion prior to admit, no specific complications noted. Unable to go to inpatient Psych from ER due to other comorbidities. Qualifiers: Qualified Codes: T65.92XA - Toxic effect of unspecified substance, intentional self-harm, initial encounter (2) UTI (urinary tract infection) due to urinary indwelling catheter Status: Acute Assessment & Plan: Treated with Bactrim, course completed on 06/30. (3) Prostate cancer metastatic to multiple sites Status: Chronic Assessment & Plan: Bony mets, on chronic opiate therapy. Reportedly was plan to discuss hospice prior to admit. Social work consulted and working on placement for d/c. 06/30 discussed goals with patient today, and he does not clearly recall hospice discussion, when asked if he knows what hospice is he states "where they kill you", and on clarification about goals of care with hospice and discussing his metastatic prostate cancer, he says he would want to continue treatment for his cancer. (4) Behavior disturbance Status: Chronic Assessment & Plan: Chronic issue, is on home diazepam, ziprasodone, paroxetine and depakote as well as prn Haldol and ativan. Working on minimizing prn med use and working on placement. Holding IV meds and increased ziprasodone. Will monitor daily EKG due to QT prolonging meds, stopped ondansetron. (5) COPD (chronic obstructive pulmonary disease) Status: Chronic (6) Insulin dependent diabetes mellitus Status: Chronic (7) History of methamphetamine abuse Status: Chronic (8) AMI (acute kidney injury) Status: Resolved (9) Unable to care for self Status: Chronic Assessment & Plan: Social work working on placement, difficult due to history of behavioral disturbances, continuing to reach out to multiple locations across the state. (10) DVT prophylaxis Status: Acute Assessment & Plan: Enoxaparin Clinical Quality Measures DVT/VTE Risk/Contraindication: VTE Addressed: Yes VTE Present on Admission: No CHRIS DOHERTY MD Jul 02, 2022 11:07
--- NOTE | 2022-07-02 11:46 | Physical Therapy Evaluation ---
PT Evaluation-General Medical Diagnosis Admission Date Jun 23, 2022 at 08:35 Medical Diagnosis: AMI Onset Date: Jun 23, 2022 Therapy Diagnosis Therapy Diagnosis: debility/weakness Height/Weight Height (Feet): 5 Height (Inches): 9.00 Weight (Pounds): 251 Weight (Ounces): 0 Precautions Precautions/Isolations: Fall Prevention, Standard Precautions Weight Bear Status Right Lower Extremity: Right Weight Bearing/Tolerated Left Lower Extremity: Left Weight Bearing/Tolerated Referral Physician: Joaquin Reason for Referral: Evaluation/Treatment Medical History Pertinent Medical History: COPD, DM, HTN, Prostate CA Additional Medical History obesity Current History EMS secondary to ingestion of pesticides in attempt of suicide Reviewed History: Yes Prior Prior Level of Function SCALE: Activities may be completed with or without assistive devices. 3-Gofrccprvt-nhkgbky completes the activity by him/herself with no assistance from a helper. 5-Set-up or Clean-up Assistance-helper sets up or cleans up; patient completes activity. [place] assists only prior to or following the activity. 4-Supervision or Touching Assistance-helper provides verbal cues and/or touching/steadying and/or contact guard assistance as patient completes activity. Assistance may be provided throughout the activity or intermittently. 3-Partial/Moderate Assistance-helper does LESS THAN HALF the effort. [place] lifts, holds or supports trunk or limbs, but provides less than half the effort. 2-Substantial/Maximal Assistance-helper does MORE THAN HALF the effort. [place] lifts or holds trunk or limbs and provides more than half the effort. 1-Fsukziekl-daomfw does ALL the effort. Patient does none of the effort to complete the activity. Or, the assistance of 2 or more helpers is required for the patient to complete the activity. If activity was not attempted, code reason: 7-Patient Refused. 9-Not Applicable-not attempted and the patient did not perform the activity before the current illness, exacerbation or injury. 10-Not Attempted due to Environmental Limitations-(lack of equipment, weather restraints, etc.). 88-Not Attempted due to Medical Conditions or Safety Concerns. Bed Mobility: 1 Transfers (B,C,W/C): 1 (christy) Gait: 9 Stairs: 9 Indoor Mobility (Ambulation): Not [place] Stairs: Not [place] Prior Devices Use: Mechanical lift, Motorized scooter PT Evaluation-Current Subjective Patient agrees to PT. Objective Patient Orientation: Person ROM/Strength ROM Lower Extremities bilateral LE WFL Strength Upper Extremities 3/5 grossly bilateral LE all planes Strength Lower Extremities 3-/5 grossly bilateral LE all planes Integumentary/Posture Bladder Incontinence: Perkins Cath Posture slightly kyphotic Neuromuscular (Tone, Coordination, Reflexes) slightly diminished coordination due to weakness Sensory Vision: Functional Hearing: Functional Transfers Roll Left to Right (QC): 1 Sit to Lying (QC): 1 (x 2) Lying to Sitting/Side of Bed(Q: 1 (x 2) Sit to Stand (QC): 1 (x 2 attempt to stand to FWW with patient unable to safely perform) Gait Does the Patient Walk?: No and Walking Goal NOT indicated Balance Sitting Static: Poor Sitting Dynamic: Poor Assessment/Needs Patient sat EOB for several minutes and was unable to safely perform stand to FWW. Patient required max assist of 2 to maintain sitting EOB. Patient will require Christy lift to safely transfer OOB to w/c or recliner. Patient does perform upper body/extremity mobility without difficulty. Rehab Potential: Guarded PT Assisted Goals Assisted Goals PT Assisted Goals Time Frame: Jul 18, 2022 Roll Left & Right (QC): 2 Sit to Lying (QC): 2 Lying-Sitting on Side/Bed(QC): 2 PT Plan Problem List Problem List: Activity Tolerance, Functional Strength, Safety, Balance, Transfer, Bed Mobility Treatment/Plan Treatment Plan: Continue Plan of Care Treatment Plan: Bed Mobility, Education, Functional Activity Aubree, Functional Strength, Safety, Therapeutic Exercise, Transfers Treatment Duration: Jul 18, 2022 Frequency: 5 times per week Estimated Hrs Per Day: .25 hour per day Time Time In: 1020 Time Out: 1035 DATE: Jul 02, 2022 Total Billed Treatment Time: 15 [facility] SAMANTHA ELI PT Jul 02, 2022 11:46
[2022-07-02] MEDS: ACETAMINOPHEN 325 MG TABLET PO PRN ×2 (12:08→14:11)
[2022-07-02] MEDS: ENOXAPARIN 40 MG/0.4 ML (LOVENOX) SYR SC SCH (12:11)
[2022-07-02 15:56] VITALS: BP 147/73
[2022-07-02 19:09] VITALS: BP 137/70
[2022-07-02] MEDS: MELATONIN 3 MG TABLET PO SCH (19:13)
[2022-07-03] MEDS: LORazepam 1 MG (ATIVAN) TAB PO PRN ×3 (02:52→21:43)
[2022-07-03] MEDS: diphenhydrAMINE 25 MG TAB (BENADRYL) PO PRN (02:52)
[2022-07-03] MEDS: cloNIDine 0.1 MG (CATAPRES) TAB PO PRN (02:54)
[2022-07-03 02:55] VITALS: BP 177/88
[2022-07-03] MEDS: HALOPERIDOL 5 MG/ML (HALDOL) VIAL IM PRN (04:06)
[2022-07-03] MEDS: LEVOTHYROXINE 50 MCG (LEVOTHROID) TAB PO SCH (04:43)
[2022-07-03] MEDS: inSUlin ASPART (NovoLOG) 1 UNIT/0.01 ML (CHARGE PER UNIT) SC SCH ×4 (05:10→20:31)
[2022-07-03] MEDS: amLODIPine 5 MG (NORVASC) TAB PO SCH ×2 (07:47→20:31)
[2022-07-03] MEDS: DOCUSATE SODIUM 100 MG (COLACE) CAP PO SCH ×2 (07:47→17:10)
[2022-07-03] MEDS: GABAPENTIN 300 MG (NEURONTIN) CAP PO SCH ×4 (07:47→20:31)
[2022-07-03] MEDS: PARoxetine 20 MG (PAXIL) TAB PO SCH (07:47)
[2022-07-03] MEDS: PANTOPRAZOLE 40 MG (PROTONIX) TAB PO SCH (07:47)
[2022-07-03] MEDS: DIVALPROX SPRINKLE 125 MG (DEPAKOTE) CAP PO SCH ×3 (07:47→17:10)
[2022-07-03] MEDS: meTOprolol TARTRATE 50 MG (LOPRESSOR) TAB PO SCH ×2 (07:47→17:10)
[2022-07-03] MEDS: ZIPRASIDONE 20 MG (GEODON) CAP PO SCH ×2 (07:47→17:10)
[2022-07-03] MEDS: SENNA W/DOCUSATE (SENOKOT S) TABLET PO SCH ×2 (07:47→17:10)
[2022-07-03] MEDS: polyethylene glycoL POWDER 17 GM (MIRALAX) PACK PO SCH ×2 (07:56→15:31)
[2022-07-03 08:00] VITALS: BP 148/83
--- NOTE | 2022-07-03 10:43 | Physical Therapy Daily Note ---
PT Daily Note-Current Pain Section J - Health Conditions 1. Rarely or not at all 2. Occasionally 3. Frequently 4. Almost constantly 8. Unable to answer Pain Effect on Sleep: 8 Pain Interference with Therapy: 8 Pain Interference w/Day-to-Day: 8 Mental Status Patient Orientation: Confused Transfers SCALE: Activities may be completed with or without assistive devices. 6-Cxagezrnov-tmninxg completes the activity by him/herself with no assistance from a helper. 5-Set-up or Clean-up Assistance-helper sets up or cleans up; patient completes activity. [place] assists only prior to or following the activity. 4-Supervision or Touching Assistance-helper provides verbal cues and/or touching/steadying and/or contact guard assistance as patient completes activity. Assistance may be provided throughout the activity or intermittently. 3-Partial/Moderate Assistance-helper does LESS THAN HALF the effort. [place] lifts, holds or supports trunk or limbs, but provides less than half the effort. 2-Substantial/Maximal Assistance-helper does MORE THAN HALF the effort. [place] lifts or holds trunk or limbs and provides more than half the effort. 7-Plznzalrn-wuapml does ALL the effort. Patient does none of the effort to complete the activity. Or, the assistance of 2 or more helpers is required for the patient to complete the activity. If activity was not attempted, code reason: 7-Patient Refused. 9-Not Applicable-not attempted and the patient did not perform the activity before the current illness, exacerbation or injury. 10-Not Attempted due to Environmental Limitations-(lack of equipment, weather restraints, etc.). 88-Not Attempted due to Medical Conditions or Safety Concerns. Roll Left & Right (QC): 1 (x2) Weight Bearing Right Lower Extremity: Right Weight Bearing/Tolerated Left Lower Extremity: Left Weight Bearing/Tolerated Assessment Patient resistive with all mobility and continues to have difficulty with following simple direction. Patient repositioned up in bed with bed alarm activated and 4 rails up. PT Intermediate Goals Intermediate Goals PT Intermediate Goals Time Frame: Jul 18, 2022 Roll Left & Right (QC): 2 Sit to Lying (QC): 2 Lying-Sitting on Side/Bed(QC): 2 PT Plan Treatment/Plan Treatment Plan: Continue Plan of Care Treatment Plan: Bed Mobility, Education, Functional Activity Aubree, Functional Strength, Safety, Therapeutic Exercise, Transfers Treatment Duration: Jul 18, 2022 Frequency: 5 times per week Estimated Hrs Per Day: .25 hour per day Time Time In: 920 Time Out: 931 DATE: Jul 03, 2022 Total Billed Treatment Time: 11 Total Billed Treatment 1 visit FA 11 min SAMANTHA ELI PT Jul 03, 2022 10:43
[2022-07-03] MEDS: BISACODYL 10 MG SUPP (DULCOLAX) PR PRN ×2 (11:00→14:00)
[2022-07-03] MEDS: ENOXAPARIN 40 MG/0.4 ML (LOVENOX) SYR SC SCH (11:38)
[2022-07-03 16:10] VITALS: BP 140/65
--- NOTE | 2022-07-03 16:27 | Progress Note ---
Subjective Subjective/Events-last exam No acute events. Sleeping at time of exam. Objective Exam Last Set of Vital Signs Vital Signs Date Time Temp Pulse Resp B/P (MAP) Pulse Ox O2 Delivery O2 Flow Rate FiO2 07/03/22 16:10 140/65 (90) 07/03/22 15:59 36.7 62 18 93 Room Air 06/29/22 23:43 0.00 0.00 06/28/22 17:48 21 Capillary Refill : Less Than 3 Seconds I&O Intake and Output 07/03/22 00:00 Intake Total 1520 ml Output Total 1980 ml Balance -460 ml Intake Oral 1520 ml Output Urine Total 1980 ml General: Other (deep sleep) Lungs: Normal Air Movement Heart: Regular Rate Extremities: No Edema Results/Procedures Lab Laboratory Tests 07/02/22 21:10: Glucometer 135H 07/03/22 04:47: Glucometer 136H 07/03/22 11:11: Glucometer 273H Microbiology 06/21/22 MRSA Screen - Final, Complete 06/20/22 Urine Culture - Final, Complete Pseudomonas putida Stenotrophomonas Maltophilia Assessment/Plan Assessment/Plan (1) Ingestion of toxin Status: Acute Assessment & Plan: Small amount of pesticide ingestion prior to admit, no specific complications noted. Unable to go to inpatient Psych from ER due to other comorbidities. Qualifiers: Qualified Codes: T65.92XA - Toxic effect of unspecified substance, intentional self-harm, initial encounter (2) UTI (urinary tract infection) due to urinary indwelling catheter Status: Acute Assessment & Plan: Treated with Bactrim, course completed on 06/30. (3) Prostate cancer metastatic to multiple sites Status: Chronic Assessment & Plan: Bony mets, on chronic opiate therapy. Reportedly was plan to discuss hospice prior to admit. Social work consulted and working on placement for d/c. 06/30 discussed goals with patient today, and he does not clearly recall hospice discussion, when asked if he knows what hospice is he states "where they kill you", and on clarification about goals of care with hospice and discussing his metastatic prostate cancer, he says he would want to continue treatment for his cancer. (4) Behavior disturbance Status: Chronic Assessment & Plan: Chronic issue, is on home diazepam, ziprasodone, paroxetine and depakote as well as prn Haldol and ativan. Working on minimizing prn med use and working on placement. Holding IV meds and increased ziprasodone. Will monitor daily EKG due to QT prolonging meds, stopped ondansetron. (5) COPD (chronic obstructive pulmonary disease) Status: Chronic (6) Insulin dependent diabetes mellitus Status: Chronic (7) History of methamphetamine abuse Status: Chronic (8) AMI (acute kidney injury) Status: Resolved (9) Unable to care for self Status: Chronic Assessment & Plan: Social work working on placement, difficult due to history of behavioral disturbances, continuing to reach out to multiple locations across the state. (10) DVT prophylaxis Status: Acute Assessment & Plan: Enoxaparin Clinical Quality Measures DVT/VTE Risk/Contraindication: VTE Addressed: Yes VTE Present on Admission: No CHRIS DOHERTY MD Jul 03, 2022 16:27
[2022-07-03] MEDS: MELATONIN 3 MG TABLET PO SCH (20:31)
[2022-07-04 00:13] VITALS: BP 124/67
[2022-07-04] MEDS: LORazepam 1 MG (ATIVAN) TAB PO PRN ×4 (03:47→21:01)
[2022-07-04] MEDS: LEVOTHYROXINE 50 MCG (LEVOTHROID) TAB PO SCH (05:51)
[2022-07-04] MEDS: inSUlin ASPART (NovoLOG) 1 UNIT/0.01 ML (CHARGE PER UNIT) SC SCH ×4 (05:52→20:28)
--- NOTE | 2022-07-04 06:11 | Progress Note - Hospitalist ---
Subjective HPI/CC On Admission Date Seen by Provider: Jul 04, 2022 Time Seen by Provider: 11:00 CC: Altered mental status with sepsis HPI: This is a 62 yr old male known to me from recent H admission due to altered mental status. He was admitted for suicidal attempt with pesticide. He is a hospice candidate and that was decided with family and patient. He required Precedex due to altered mental status and history of meth use and brain injury from that. At this current time he doesn't speak to me. We will manage him accordingly. Subjective/Events-last exam No changes Patient appears to be more hospice candidate appearance Review of Systems Neurological: Confusion Objective Exam Vital Signs Vital Signs Date Time Temp Pulse Resp B/P (MAP) Pulse Ox O2 Delivery O2 Flow Rate FiO2 07/04/22 23:34 36.6 54 18 128/75 (92) 94 Room Air 07/04/22 07:30 21 06/29/22 23:43 0.00 0.00 Capillary Refill : Less Than 3 Seconds General Appearance: No Apparent Distress, Chronically ill Neurologic/Psychiatric: Alert, Disoriented Results/Procedures Lab Patient resulted labs reviewed. Assessment/Plan Assessment and Plan Assess & Plan/Chief Complaint Awaiting longterm placement for hospice Critical Care Critically Ill Patient Clinical Quality Measures DVT/VTE Risk/Contraindication: VTE Addressed: Yes VTE Present on Admission: No ROS ZIMMER DO Jul 04, 2022 06:11
[2022-07-04 07:18] VITALS: BP 158/79
[2022-07-04 07:30] VITALS: BP 158/79
[2022-07-04] MEDS: polyethylene glycoL POWDER 17 GM (MIRALAX) PACK PO SCH (08:37)
[2022-07-04] MEDS: amLODIPine 5 MG (NORVASC) TAB PO SCH ×2 (08:37→21:01)
[2022-07-04] MEDS: PARoxetine 20 MG (PAXIL) TAB PO SCH (08:38)
[2022-07-04] MEDS: DOCUSATE SODIUM 100 MG (COLACE) CAP PO SCH ×2 (08:38→21:01)
[2022-07-04] MEDS: ZIPRASIDONE 20 MG (GEODON) CAP PO SCH ×2 (08:38→16:59)
[2022-07-04] MEDS: SENNA W/DOCUSATE (SENOKOT S) TABLET PO SCH ×2 (08:38→21:01)
[2022-07-04] MEDS: meTOprolol TARTRATE 50 MG (LOPRESSOR) TAB PO SCH ×2 (08:38→16:59)
[2022-07-04] MEDS: PANTOPRAZOLE 40 MG (PROTONIX) TAB PO SCH (08:38)
[2022-07-04] MEDS: GABAPENTIN 300 MG (NEURONTIN) CAP PO SCH ×4 (08:43→21:01)
[2022-07-04] MEDS: DIVALPROX SPRINKLE 125 MG (DEPAKOTE) CAP PO SCH ×3 (08:48→21:01)
[2022-07-04] MEDS: ENOXAPARIN 40 MG/0.4 ML (LOVENOX) SYR SC SCH (11:52)
[2022-07-04] MEDS: diphenhydrAMINE 25 MG TAB (BENADRYL) PO PRN (13:46)
[2022-07-04] MEDS: HALOPERIDOL 5 MG/ML (HALDOL) VIAL IM PRN (14:04)
[2022-07-04 15:22] VITALS: BP 150/77
[2022-07-04] MEDS: MELATONIN 3 MG TABLET PO SCH (21:01)
[2022-07-04 23:34] VITALS: BP 128/75
[2022-07-05] MEDS: LORazepam 1 MG (ATIVAN) TAB PO PRN ×2 (01:03→19:36)
[2022-07-05] MEDS: LEVOTHYROXINE 50 MCG (LEVOTHROID) TAB PO SCH (05:16)
[2022-07-05] MEDS: inSUlin ASPART (NovoLOG) 1 UNIT/0.01 ML (CHARGE PER UNIT) SC SCH ×4 (05:16→20:52)
--- NOTE | 2022-07-05 06:55 | Progress Note - Hospitalist ---
Subjective HPI/CC On Admission Date Seen by Provider: Jul 05, 2022 Time Seen by Provider: 11:00 CC: Altered mental status with sepsis HPI: This is a 62 yr old male known to me from recent [facility] admission due to altered mental status. He was admitted for suicidal attempt with pesticide. He is a hospice candidate and that was decided with family and patient. He required Precedex due to altered mental status and history of meth use and brain injury from that. At this current time he doesn't speak to me. We will manage him accordingly. Subjective/Events-last exam No major issues Throws things at nurses Very debilitated Review of Systems Musculoskeletal: leg pain Neurological: Confusion Objective Exam Vital Signs Vital Signs Date Time Temp Pulse Resp B/P (MAP) Pulse Ox O2 Delivery O2 Flow Rate FiO2 07/05/22 15:21 37.0 62 17 162/76 (104) 94 Room Air 07/04/22 07:30 21 06/29/22 23:43 0.00 0.00 Capillary Refill : Less Than 3 Seconds General Appearance: No Apparent Distress, WD/WN, Chronically ill, Obese Neurologic/Psychiatric: Alert, Disoriented Results/Procedures Lab Patient resulted labs reviewed. Assessment/Plan Assessment and Plan Assess & Plan/Chief Complaint Awaiting long-term placement for hospice Critical Care Critically Ill Patient Clinical Quality Measures DVT/VTE Risk/Contraindication: VTE Addressed: Yes VTE Present on Admission: No ROS ZIMMER DO Jul 05, 2022 06:55
[2022-07-05] MEDS: amLODIPine 5 MG (NORVASC) TAB PO SCH ×2 (07:49→19:36)
[2022-07-05] MEDS: PANTOPRAZOLE 40 MG (PROTONIX) TAB PO SCH (07:49)
[2022-07-05] MEDS: DIVALPROX SPRINKLE 125 MG (DEPAKOTE) CAP PO SCH ×3 (07:49→19:35)
[2022-07-05] MEDS: SENNA W/DOCUSATE (SENOKOT S) TABLET PO SCH ×2 (07:49→19:36)
[2022-07-05] MEDS: DOCUSATE SODIUM 100 MG (COLACE) CAP PO SCH ×2 (07:49→19:35)
[2022-07-05] MEDS: ZIPRASIDONE 20 MG (GEODON) CAP PO SCH ×2 (07:49→16:12)
[2022-07-05] MEDS: GABAPENTIN 300 MG (NEURONTIN) CAP PO SCH ×4 (07:49→19:36)
[2022-07-05] MEDS: meTOprolol TARTRATE 50 MG (LOPRESSOR) TAB PO SCH ×2 (07:50→16:12)
[2022-07-05] MEDS: PARoxetine 20 MG (PAXIL) TAB PO SCH (07:50)
[2022-07-05] MEDS: polyethylene glycoL POWDER 17 GM (MIRALAX) PACK PO SCH (07:51)
[2022-07-05 08:00] VITALS: BP 163/77
[2022-07-05] MEDS: ENOXAPARIN 40 MG/0.4 ML (LOVENOX) SYR SC SCH (11:23)
[2022-07-05 15:21] VITALS: BP 162/76
[2022-07-05] MEDS: diphenhydrAMINE 25 MG TAB (BENADRYL) PO PRN (16:12)
[2022-07-05] MEDS: HALOPERIDOL 5 MG/ML (HALDOL) VIAL IM PRN (17:07)
[2022-07-05] MEDS: cloNIDine 0.1 MG (CATAPRES) TAB PO PRN (19:35)
[2022-07-05] MEDS: MELATONIN 3 MG TABLET PO SCH (19:36)
[2022-07-06 00:03] VITALS: BP 135/65
[2022-07-06] MEDS: LORazepam 1 MG (ATIVAN) TAB PO PRN ×5 (00:03→22:39)
[2022-07-06 04:00] VITALS: BP 155/77
[2022-07-06] MEDS: inSUlin ASPART (NovoLOG) 1 UNIT/0.01 ML (CHARGE PER UNIT) SC SCH ×4 (05:33→20:34)
[2022-07-06] MEDS: LEVOTHYROXINE 50 MCG (LEVOTHROID) TAB PO SCH (05:33)
[2022-07-06 08:36] VITALS: BP 151/74
[2022-07-06] MEDS: meTOprolol TARTRATE 50 MG (LOPRESSOR) TAB PO SCH ×2 (08:37→16:52)
[2022-07-06] MEDS: PARoxetine 20 MG (PAXIL) TAB PO SCH (08:37)
[2022-07-06] MEDS: amLODIPine 5 MG (NORVASC) TAB PO SCH ×2 (08:38→22:31)
[2022-07-06] MEDS: DIVALPROX SPRINKLE 125 MG (DEPAKOTE) CAP PO SCH ×3 (08:38→22:31)
[2022-07-06] MEDS: PANTOPRAZOLE 40 MG (PROTONIX) TAB PO SCH (08:38)
[2022-07-06] MEDS: ZIPRASIDONE 20 MG (GEODON) CAP PO SCH ×2 (08:39→16:52)
[2022-07-06] MEDS: GABAPENTIN 300 MG (NEURONTIN) CAP PO SCH ×4 (08:46→22:39)
[2022-07-06] MEDS: DOCUSATE SODIUM 100 MG (COLACE) CAP PO SCH ×2 (09:00→22:40)
--- NOTE | 2022-07-06 09:35 | Physical Therapy Daily Note ---
PT Daily Note-Current Subjective Patient more alert and cooperative on this date. Pain Section J - Health Conditions 1. Rarely or not at all 2. Occasionally 3. Frequently 4. Almost constantly 8. Unable to answer Pain Effect on Sleep: 8 Pain Interference with Therapy: 8 Pain Interference w/Day-to-Day: 8 Mental Status Patient Orientation: Person, Time, Situation Attachments: Suprapubic Catheter Transfers SCALE: Activities may be completed with or without assistive devices. 6-Cynwculmnr-pjuslhy completes the activity by him/herself with no assistance from a helper. 5-Set-up or Clean-up Assistance-helper sets up or cleans up; patient completes activity. [place] assists only prior to or following the activity. 4-Supervision or Touching Assistance-helper provides verbal cues and/or touching/steadying and/or contact guard assistance as patient completes activity. Assistance may be provided throughout the activity or intermittently. 3-Partial/Moderate Assistance-helper does LESS THAN HALF the effort. [place] lifts, holds or supports trunk or limbs, but provides less than half the effort. 2-Substantial/Maximal Assistance-helper does MORE THAN HALF the effort. [place] lifts or holds trunk or limbs and provides more than half the effort. 3-Fisdwxoln-vvfupc does ALL the effort. Patient does none of the effort to complete the activity. Or, the assistance of 2 or more helpers is required for the patient to complete the activity. If activity was not attempted, code reason: 7-Patient Refused. 9-Not Applicable-not attempted and the patient did not perform the activity before the current illness, exacerbation or injury. 10-Not Attempted due to Environmental Limitations-(lack of equipment, weather restraints, etc.). 88-Not Attempted due to Medical Conditions or Safety Concerns. Roll Left & Right (QC): 1 Chair/Gzn-ij-Tuxrn Xfer(QC): 1 (Christy lift) Weight Bearing Right Lower Extremity: Right Weight Bearing/Tolerated Left Lower Extremity: Left Weight Bearing/Tolerated Exercises Supine Ex: Ankle pumps, Heel Slides, Straight leg raise, Hip abd/add (15) Supine Reps: 15 (AAROM) Assessment Patient continues to require dependent assist with use of Christy lift for patient and staff safety to attain sitting in recliner. Patient tolerated treatment well and breakfast in situ. PT Correction Goals Correction Goals PT Correction Goals Time Frame: Jul 18, 2022 Roll Left & Right (QC): 2 Sit to Lying (QC): 2 Lying-Sitting on Side/Bed(QC): 2 PT Plan Treatment/Plan Treatment Plan: Continue Plan of Care Treatment Plan: Bed Mobility, Education, Functional Activity Aubree, Functional Strength, Safety, Therapeutic Exercise, Transfers Treatment Duration: Jul 18, 2022 Frequency: 5 times per week Estimated Hrs Per Day: .25 hour per day Time Time In: 755 Time Out: 820 DATE: Jul 06, 2022 Total Billed Treatment Time: 25 Total Billed Treatment 1 visit FA x 2 25 min SAMANTHA ELI PT Jul 06, 2022 09:35
--- NOTE | 2022-07-06 09:45 | Progress Note - Hospitalist ---
Subjective HPI/CC On Admission Date Seen by Provider: Jul 06, 2022 Time Seen by Provider: 09:00 CC: Altered mental status with sepsis HPI: This is a 62 yr old male known to me from recent H admission due to altered mental status. He was admitted for suicidal attempt with pesticide. He is a hospice candidate and that was decided with family and patient. He required Precedex due to altered mental status and history of meth use and brain injury from that. At this current time he doesn't speak to me. We will manage him accordingly. Subjective/Events-last exam No major changes No behaviors today Objective Exam Vital Signs Vital Signs Date Time Temp Pulse Resp B/P (MAP) Pulse Ox O2 Delivery O2 Flow Rate FiO2 07/06/22 23:01 36.2 58 16 159/94 (115) 93 Room Air 07/04/22 07:30 21 Capillary Refill : Less Than 3 Seconds General Appearance: Other (Asleep and chronically ill) Results/Procedures Lab Patient resulted labs reviewed. Assessment/Plan Assessment and Plan Assess & Plan/Chief Complaint Awaiting [facility] placement for hospice Critical Care Critically Ill Patient Clinical Quality Measures DVT/VTE Risk/Contraindication: VTE Addressed: Yes VTE Present on Admission: No ROS ZIMMER DO Jul 06, 2022 09:45
[2022-07-06] MEDS: polyethylene glycoL POWDER 17 GM (MIRALAX) PACK PO SCH (10:23)
[2022-07-06] MEDS: SENNA W/DOCUSATE (SENOKOT S) TABLET PO SCH ×2 (10:23→22:40)
[2022-07-06] MEDS: ENOXAPARIN 40 MG/0.4 ML (LOVENOX) SYR SC SCH (12:22)
[2022-07-06] MEDS: diphenhydrAMINE 25 MG TAB (BENADRYL) PO PRN ×2 (12:22→17:57)
[2022-07-06] MEDS: HALOPERIDOL 5 MG/ML (HALDOL) VIAL IM PRN (15:59)
[2022-07-06 16:10] VITALS: BP 158/78
[2022-07-06] MEDS: MELATONIN 3 MG TABLET PO SCH (22:40)
[2022-07-06 23:01] VITALS: BP 159/94
[2022-07-07] MEDS: diphenhydrAMINE 25 MG TAB (BENADRYL) PO PRN ×4 (04:42→19:14)
[2022-07-07] MEDS: LORazepam 1 MG (ATIVAN) TAB PO PRN ×2 (04:42→19:14)
[2022-07-07] MEDS: LEVOTHYROXINE 50 MCG (LEVOTHROID) TAB PO SCH (04:42)
[2022-07-07] MEDS: inSUlin ASPART (NovoLOG) 1 UNIT/0.01 ML (CHARGE PER UNIT) SC SCH ×4 (04:45→20:54)
--- NOTE | 2022-07-07 05:37 | Progress Note - Hospitalist ---
Subjective HPI/CC On Admission Date Seen by Provider: Jul 07, 2022 Time Seen by Provider: 09:00 CC: Altered mental status with sepsis HPI: This is a 62 yr old male known to me from recent H admission due to altered mental status. He was admitted for suicidal attempt with pesticide. He is a hospice candidate and that was decided with family and patient. He required Precedex due to altered mental status and history of meth use and brain injury from that. At this current time he doesn't speak to me. We will manage him accordingly. Subjective/Events-last exam Set for discharge tomorrow Objective Exam Vital Signs Vital Signs Date Time Temp Pulse Resp B/P (MAP) Pulse Ox O2 Delivery O2 Flow Rate FiO2 07/07/22 23:11 36.2 52 20 132/75 (94) 93 Room Air 07/04/22 07:30 21 Capillary Refill : Less Than 3 Seconds General Appearance: Chronically ill Results/Procedures Lab Patient resulted labs reviewed. Assessment/Plan Assessment and Plan Assess & Plan/Chief Complaint Awaiting care home placement for hospice Critical Care Critically Ill Patient Clinical Quality Measures DVT/VTE Risk/Contraindication: VTE Addressed: Yes VTE Present on Admission: No ROS ZIMMER DO Jul 07, 2022 05:37
[2022-07-07] MEDS: HALOPERIDOL 5 MG/ML (HALDOL) VIAL IM PRN ×2 (05:58→12:32)
[2022-07-07] MEDS: ZIPRASIDONE 20 MG (GEODON) CAP PO SCH ×2 (06:05→17:36)
[2022-07-07] MEDS: DIVALPROX SPRINKLE 125 MG (DEPAKOTE) CAP PO SCH ×3 (06:05→19:13)
[2022-07-07] MEDS: PANTOPRAZOLE 40 MG (PROTONIX) TAB PO SCH (06:05)
[2022-07-07] MEDS: DOCUSATE SODIUM 100 MG (COLACE) CAP PO SCH ×2 (06:07→19:14)
[2022-07-07] MEDS: SENNA W/DOCUSATE (SENOKOT S) TABLET PO SCH ×2 (06:07→19:14)
[2022-07-07] MEDS: PARoxetine 20 MG (PAXIL) TAB PO SCH (06:08)
[2022-07-07] MEDS: GABAPENTIN 300 MG (NEURONTIN) CAP PO SCH ×4 (06:08→19:14)
[2022-07-07] MEDS: meTOprolol TARTRATE 50 MG (LOPRESSOR) TAB PO SCH ×2 (06:10→16:31)
[2022-07-07] MEDS: amLODIPine 5 MG (NORVASC) TAB PO SCH ×2 (06:11→19:14)
[2022-07-07] MEDS: polyethylene glycoL POWDER 17 GM (MIRALAX) PACK PO SCH (06:12)
[2022-07-07 08:00] VITALS: BP 148/67
--- NOTE | 2022-07-07 09:42 | Physical Therapy Daily Note ---
PT Daily Note-Current Subjective Patient agrees to PT. Pain Section J - Health Conditions 1. Rarely or not at all 2. Occasionally 3. Frequently 4. Almost constantly 8. Unable to answer Pain Effect on Sleep: 8 Pain Interference with Therapy: 8 Pain Interference w/Day-to-Day: 8 Mental Status Patient Orientation: Person Attachments: Suprapubic Catheter Transfers SCALE: Activities may be completed with or without assistive devices. 2-Hwskmisbrn-fxfiwkz completes the activity by him/herself with no assistance from a helper. 5-Set-up or Clean-up Assistance-helper sets up or cleans up; patient completes activity. [place] assists only prior to or following the activity. 4-Supervision or Touching Assistance-helper provides verbal cues and/or touching/steadying and/or contact guard assistance as patient completes activity. Assistance may be provided throughout the activity or intermittently. 3-Partial/Moderate Assistance-helper does LESS THAN HALF the effort. [place] lifts, holds or supports trunk or limbs, but provides less than half the effort. 2-Substantial/Maximal Assistance-helper does MORE THAN HALF the effort. [place] lifts or holds trunk or limbs and provides more than half the effort. 3-Rfyajsluc-jrtewu does ALL the effort. Patient does none of the effort to complete the activity. Or, the assistance of 2 or more helpers is required for the patient to complete the activity. If activity was not attempted, code reason: 7-Patient Refused. 9-Not Applicable-not attempted and the patient did not perform the activity before the current illness, exacerbation or injury. 10-Not Attempted due to Environmental Limitations-(lack of equipment, weather restraints, etc.). 88-Not Attempted due to Medical Conditions or Safety Concerns. Roll Left & Right (QC): 1 (x 2) patient repositioned up in bed for proper position to eat breakfast safely Weight Bearing Right Lower Extremity: Right Weight Bearing/Tolerated Left Lower Extremity: Left Weight Bearing/Tolerated Exercises Supine Ex: Ankle pumps, Heel Slides, Straight leg raise, Hip abd/add Supine Reps: 12 (AAROM) Assessment Patient repositioned up in bed to eat breakfast. Patient eating independently after set up. PT Envelope Sealer Goals Envelope Sealer Goals PT Envelope Sealer Goals Time Frame: Jul 18, 2022 Roll Left & Right (QC): 2 Sit to Lying (QC): 2 Lying-Sitting on Side/Bed(QC): 2 PT Plan Treatment/Plan Treatment Plan: Continue Plan of Care Treatment Plan: Bed Mobility, Education, Functional Activity Aubree, Functional Strength, Safety, Therapeutic Exercise, Transfers Treatment Duration: Jul 18, 2022 Frequency: 5 times per week Estimated Hrs Per Day: .25 hour per day Time Time In: 852 Time Out: 902 DATE: Jul 07, 2022 Total Billed Treatment Time: 10 Total Billed Treatment 1 visit FA 10 min SAMANTHA ELI PT Jul 07, 2022 09:42
[2022-07-07] MEDS: ENOXAPARIN 40 MG/0.4 ML (LOVENOX) SYR SC SCH (12:41)
[2022-07-07 16:32] VITALS: BP 173/76
[2022-07-07 17:15] VITALS: BP 170/79
[2022-07-07] MEDS: cloNIDine 0.1 MG (CATAPRES) TAB PO PRN (17:36)
[2022-07-07] MEDS: MELATONIN 3 MG TABLET PO SCH (19:14)
[2022-07-07 23:11] VITALS: BP 132/75
[2022-07-08] MEDS: LEVOTHYROXINE 50 MCG (LEVOTHROID) TAB PO SCH (06:33)
[2022-07-08] MEDS: inSUlin ASPART (NovoLOG) 1 UNIT/0.01 ML (CHARGE PER UNIT) SC SCH ×2 (06:41→11:36)
[2022-07-08 07:50] VITALS: BP 187/85
[2022-07-08] MEDS: SENNA W/DOCUSATE (SENOKOT S) TABLET PO SCH (08:00)
[2022-07-08] MEDS: PANTOPRAZOLE 40 MG (PROTONIX) TAB PO SCH (08:00)
[2022-07-08] MEDS: ZIPRASIDONE 20 MG (GEODON) CAP PO SCH (08:00)
[2022-07-08] MEDS: PARoxetine 20 MG (PAXIL) TAB PO SCH (08:00)
[2022-07-08] MEDS: DIVALPROX SPRINKLE 125 MG (DEPAKOTE) CAP PO SCH (08:00)
[2022-07-08] MEDS: DOCUSATE SODIUM 100 MG (COLACE) CAP PO SCH (08:00)
[2022-07-08] MEDS: amLODIPine 5 MG (NORVASC) TAB PO SCH (08:00)
[2022-07-08] MEDS: meTOprolol TARTRATE 50 MG (LOPRESSOR) TAB PO SCH (08:01)
[2022-07-08] MEDS: polyethylene glycoL POWDER 17 GM (MIRALAX) PACK PO SCH (08:01)
[2022-07-08] MEDS: LORazepam 1 MG (ATIVAN) TAB PO PRN (08:01)
[2022-07-08] MEDS: GABAPENTIN 300 MG (NEURONTIN) CAP PO SCH (08:04)
[2022-07-08] MEDS ORDERED: TRAM50TA3 PO (09:50)
[2022-07-08] MEDS ORDERED: DIAZ5TAB49 PO (09:50)
[2022-07-08] MEDS ORDERED: OXYC5TAB PO (09:50)
--- NOTE | 2022-07-08 09:51 | Discharge Summary ---
Discharge Summary Hospital Course Was the Problem List Reviewed?: Yes Problems/Dx: (1) AMS (altered mental status) Status: Acute Qualifiers: Qualified Codes: R41.0 - Disorientation, unspecified (2) AMI (acute kidney injury) Status: Resolved (3) Intentional poisoning by pesticide Status: Acute (4) Suicide attempt Status: Acute (5) Fall from bed, initial encounter Status: Acute (6) Behavior disturbance Status: Chronic Hospital Course Date of Admission: Jun 23, 2022 at 08:35 Admission Diagnosis : Family Physician/Provider: Omar Bejarano MD Date of Discharge: 07/08/22 Discharge Diagnosis: [ ] Hospital Course: Lengthy hospital course until disposition was successful back to his assisted living. He was admitted following pesticide consumption for suicide attempt. Patient was considered end-stage due to prostate cancer with mets. Psych meds restarted and behaviors were much improved and after many days of living in the hospital guest home states agreed to take it back and was discharged. Overall prognosis extremely poor. I would recommend hospice. Labs and Pending Lab Test: Laboratory Tests 07/07/22 11:11: Glucometer 126H 07/07/22 15:39: Glucometer 115H 07/07/22 20:28: Glucometer 139H 07/08/22 06:31: Glucometer 80 Microbiology 06/21/22 MRSA Screen - Final, Complete 06/20/22 Urine Culture - Final, Complete Pseudomonas putida Stenotrophomonas Maltophilia Home Meds Active Reported Haloperidol Lactate 5 Mg/Ml Syringe 2 Mg IJ Q4H PRN Divalproex Sodium 125 Mg Cap.sprink 125 Mg PO 0800,1400,2000 Ziprasidone HCl 40 Mg Capsule 40 Mg PO BID WITH MEALS Paroxetine HCl 20 Mg Tablet 20 Mg PO DAILY Melatonin 3 Mg Tablet 6 Mg PO 1999 Neurontin (Gabapentin) 300 Mg Capsule 300 Mg PO 0800,1200,1700,1999 Proventil Hfa (Albuterol Sulfate) 6.7 Gm Hfa.aer.ad 1 Puff INH Q4H PRN Oxybutynin Chloride 5 Mg Tablet 5 Mg PO BID Metoprolol Tartrate 50 Mg Tablet 50 Mg PO 0800,1700 Tylenol Extra Strength (Acetaminophen) 500 Mg Tablet 1,000 Mg PO Q8H PRN Stimulant Laxative Plus Tablet (Sennosides/Docusate Sodium) 8.6 Mg-50 Mg Tablet 1 Ea PO BID Levothyroxine Sodium 50 Mcg Tablet 50 Mcg PO DAILY Pantoprazole Sodium 40 Mg Tablet.dr 40 Mg PO DAILY [id number] (Polyethylene Glycol 3350) 17 Gram/Dose Powder 17 Gm PO DAILY Amlodipine Besylate 5 Mg Tablet 5 Mg PO DAILY Insulin Glargine-Yfgn 100 Unit/Ml (3 Ml) Insuln.pen 10 Units SC DAILY Assessment/Pt Instructions PCP in 1 week Discharge Planning: <30 minutes discharge planning Discharge Instructions Discharge Diet: No Restrictions Discharge Physical Examination Vital Signs Vital Signs Date Time Temp Pulse Resp B/P (MAP) Pulse Ox O2 Delivery O2 Flow Rate FiO2 07/08/22 08:00 95 Room Air 07/08/22 07:50 36.6 60 22 187/85 (119) 07/04/22 07:30 21 General Appearance: No Apparent Distress, WD/WN, Chronically ill Allergies: Coded Allergies: hydrocodone (Unverified Allergy, Unknown, hives, 02/08/19) aspirin (Unverified Adverse Reaction, Unknown, angioedema, 02/08/19) lisinopril (Unverified Adverse Reaction, Unknown, angioedema, 02/08/19) Discharge Summary Date of Admission Jun 23, 2022 at 08:35 Date of Discharge Discharge Date: Jul 08, 2022 Admission Diagnosis (1) Delirium with suicide attempt with poison Status: Acute Assessment & Plan: CT head without acute findings, suspected to be related to UTI/sepsis. Reorient, minimize meds as much as possible. (2) UTI (urinary tract infection) due to urinary indwelling catheter Status: Acute Assessment & Plan: See sepsis diagnosis. Qualifiers: Qualified Codes: T83.510A - Infection and inflammatory reaction due to cystostomy catheter, initial encounter; N39.0 - Urinary tract infection, site not specified (3) Sepsis Status: Acute Assessment & Plan: Suspected to be secondary to UTI. Started on ceftriaxone based on previous results. Lactic acid initially and no end organ damage at admission. Qualifiers: Qualified Codes: A41.9 - Sepsis, unspecified organism (4) recent but not currently present acute respiratory failure Status: Acute Assessment & Plan: Moved to ICU, able to be weaned back to 5 lpm nasal cannula, ABG, BNP, CXR pending. Hold IVF. Flu and COVID swabs negative on admit. Qualifiers: Qualified Codes: J96.01 - Acute respiratory failure with hypoxia (5) Hypertension Status: Chronic Assessment & Plan: Resume home meds when needed. Qualifiers: Qualified Codes: I10 - Essential (primary) hypertension (6) COPD (chronic obstructive pulmonary disease) Status: Chronic Assessment & Plan: RT, duonebs. (7) Insulin dependent diabetes mellitus Status: Chronic Assessment & Plan: Sliding scale insulin. Diabetic diet when stable for PO intake. (8) Anemia Status: Chronic Qualifiers: Qualified Codes: D63.0 - Anemia in neoplastic disease (9) Hyponatremia Status: Acute (10) Prostate cancer metastatic to multiple sites Status: Chronic (11) DVT prophylaxis Status: Acute Assessment & Plan: Enoxaparin Plan: Needs hospice Precedex to control behaviors in the meantime Discharge Diagnosis Awaiting half-way placement for hospice Clinical Quality Measures DVT/VTE Risk/Contraindication: VTE Addressed: Yes VTE Present on Admission: No ROS ZIMMER DO Jul 08, 2022 09:51
[2022-07-08 11:40] VITALS: BP 155/69
[2022-07-08 12:40] VITALS: BP 155/69
== END 2022-07-08 12:40 | DRG 698 ==
LOC: EDUNIT# 16:50 → ER FS 16:51 → ICU 06-21 13:00 → OBSVTOIN 06-23 08:35 → 4TH 06-24 18:00
PROVIDERS: ADMIT Internal Medicine; ATTEND Internal Medicine
DX: T83.510A Infection and inflammatory reaction due to cystostomy catheter, initial encounter (principal); A41.9 Sepsis, unspecified organism; J96.01 Acute respiratory failure with hypoxia; N17.9 Acute kidney failure, unspecified; I42.9 Cardiomyopathy, unspecified; N39.0 Urinary tract infection, site not specified; E87.1 Hypo-osmolality and hyponatremia; T60.9 Toxic effect of unspecified pesticide; R41.82 Altered mental status, unspecified; E11.40 Type 2 diabetes mellitus with diabetic neuropathy, unspecified; E66.9 Obesity, unspecified; Z20.822 Contact with and (suspected) exposure to COVID-19; Z79.4 Long term (current) use of insulin; C61 Malignant neoplasm of prostate; Z92.21 Personal history of antineoplastic chemotherapy; I10 Essential (primary) hypertension; Z66 Do not resuscitate; E03.9 Hypothyroidism, unspecified; Z79.890 Hormone replacement therapy; Z79.899 Other long term (current) drug therapy; F41.9 Anxiety disorder, unspecified; F32.A Depression, unspecified; J44.9 Chronic obstructive pulmonary disease, unspecified; E78.00 Pure hypercholesterolemia, unspecified; G89.29 Other chronic pain; M54.9 Dorsalgia, unspecified; Z87.891 Personal history of nicotine dependence; F15.90 Other stimulant use, unspecified, uncomplicated; Z68.33 Body mass index [BMI] 33.0-33.9, adult; Z51.5 Encounter for palliative care; D63.0 Anemia in neoplastic disease; W06.XXXA Fall from bed, initial encounter
CPT/HCPCS: 36415; 80053; 80202; 80306; 80320; 80329; 81000; 82607; 82746; 82947; 83735; 84100; 84439; 84443; 85025; 86780; 87077; 87081; 87088; 87186; 87636; 93005; 94640; 94760; G0378